=== PATIENT | female | born 1950 | race Caucasian/White ===

== ENCOUNTER → 2020-04-05 18:07 | Outpatient (CLI) | payer MEDICARE, OTHER, SELFPAY ==
[2020-04-05 18:08] LABS: Bacteria 0 SEEN /hpf (None Seen); Mucous, Urine 0 SEEN /hpf (<or=2+); Red Blood Cells-Urine 0 SEEN /hpf (0-5); Squamous Epithelial Cells - UA 0 SEEN /hpf (5-10)
[2020-04-05 18:22] LABS: Color, Urine Yellow (Yellow); Glucose, Dipstick Normal (Normal); Ketone-Dipstick 5 mg/dl (Negative); Leukocyte Esterase-Dipstick 25 /ul (Negative); Nitrite-Dipstick Negative (Negative); Occult Blood-Urine 10 /ul (Negative); Protein-Dipstick Negative (Negative); Specific Gravity, Urine 1.025 (1.002-1.030); Urine Bilirubin Dipstick Negative (Negative); Urine Clarity Cloudy (Clear); Urine Urobilinogen Normal (Normal)
[2020-04-05 18:31] LABS: Amorphous Sediment 3+; Calcium Oxalate Crystals Ur RARE /hpf (<or=2+); White Blood Cells 0-5 SEEN /hpf (0-5)
== END ==
PROVIDERS: Referring Provider Nurse Practitioner Adult Health; Visit Provider Nurse Practitioner Adult Health
DX: R31.29 Other microscopic hematuria (principal)
CPT/HCPCS: 81001

== ENCOUNTER 2021-07-11 14:24 | Outpatient (CLI) | payer MEDICARE, OTHER, SELFPAY ==
--- NOTE | 2021-07-11 15:06 | RAD_ITS ---
History: CALCULUS OF KIDNEY Abdomen: Findings: AP supine view of the abdomen demonstrates normal bowel gas pattern. No pathologic calcification or organomegaly. Bilateral phleboliths are noted within the pelvis precluding evaluation for small distal ureteral stone Psoas muscle margins are well delineated. No acute osseous abnormality. Bilateral hip prostheses in place. L4 and L5 laminectomy. IMPRESSION: No acute abnormality. No evidence of renal stone. As above. at [id number] Reported and signed by: Brodie Tinoco MD Electronically Signed: Brodie Tinoco MD at 16:56 EST , RAD/Abdomen Single View
== END 2021-07-11 23:59 | disposition home or self-care (01) ==
PROVIDERS: PCP Student in an Organized Health Care Education/Training Program; Visit Provider Urology
DX: N20.0 Calculus of kidney (principal)
CPT/HCPCS: 74018

== ENCOUNTER → 2021-12-13 | Outpatient (CLI) | payer MEDICARE, OTHER, SELFPAY ==
--- NOTE | 2021-12-13 15:06 | CT_ITS ---
STUDY: CT PELVIS WITHOUT CONTRAST REASON FOR EXAM: Female, 71 years old. HIP PAIN FRACTURE URETERAL STONE L TECHNIQUE: Transaxial imaging of the pelvis was performed without oral contrast, and without intravenous administration of contrast material. Individualized dose optimization techniques were used for this CT. COMPARISON: None. FINDINGS: Normal urinary bladder. 4.5 mm distal left ureteral stone. Normal visualized small intestine. Normal visualized colon. There is no pelvic fluid. There is no pelvic mass lesion or lymphadenopathy. There is absence of the uterus consistent with a prior hysterectomy. Normal visualized pelvic arteries. There is bilateral neural foraminal stenosis at L4-5 and L5-S1. There is a right inguinal hernia containing fat. There are diffuse degenerative changes of the visualized lumbar spine. Total bilateral hip arthroplasty. 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 There is a Grade 1 anterolisthesis of L5 on S1. CT/Pelvis without IV Contrast IMPRESSION: 4.5 mm distal left ureteral stone. There is bilateral neural foraminal stenosis at L4-5 and L5-S1. Electronically Signed: Chato Jain MD at 20:22 EDT ,
== END | disposition home or self-care (01) ==
LOC: CT 14:56
PROVIDERS: PCP Student in an Organized Health Care Education/Training Program; Visit Provider Urology
DX: N20.1 Calculus of ureter (principal)
CPT/HCPCS: 72192

== ENCOUNTER 2021-12-29 06:03 | Day surgery (SDC) | payer MEDICARE, OTHER, SELFPAY ==
[2021-12-29] VITALS (7 sets, daily range): BP systolic 121–141; BP diastolic 72–93; PULSE 90–109; RESP 16–20; TEMP 36.4–37.2; O2SAT 92–96; BMI 37.5
[2021-12-29 06:36] LABS: INR Fingerstick 2.2; Prothrombin Time Fingerstick 25.8 SEC (11.7-14.9)
[2021-12-29] MEDS: Lactated Ringers 1,000 ML 15 ML IV (06:51)
[2021-12-29 07:24] LABS: International Normalized Ratio 2.3; Prothrombin Time (Protime)PT. 24.9 SECONDS (11.7-14.9)
[2021-12-29] MEDS: Cefazolin 2 GM in 0.9% Normal Saline 100 ML IV (07:35)
--- NOTE | 2021-12-29 07:35 | DCINST_ITS ---
Discharge Instructions Diet Discharge Diet: No restrictions Activity Discharge Activity: Return to Normal Activity May resume sexual activity in: No Restrictions Dressing / Incision Call your doctor if you observe: Fever of 101 or Higher, Inability to urinate and Inability to have a bowel movement Follow Up Care Please Follow Up With: Tracy Camacho MD When: Call office for cystoscopy and stent removal appointment Test Results: Test results from this visit will be discussed in further detail at your follow- up appointment, if applicable. Discharge Plan Admission Attending Provider: Tracy Camacho Primary Care Provider: Adrian Rico Discharge Orders/Prescriptions Prescriptions: New ondansetron HCl [ondansetron HCl] 8 mg tablet 8 mg PO Q8H PRN PRN (Reason: Nausea) 7 Days Qty: 20 0RF oxycodone-acetaminophen [Percocet] 5-325 mg tablet 1 tab PO Q8H PRN (Reason: pain) 3 Days Qty: 14 0RF cephalexin [cephalexin] 500 mg capsule 500 mg PO Q12 3 Days Qty: 6 0RF phenazopyridine [Pyridium] 200 mg tablet 200 mg PO TID PRN PRN (Reason: Bladder Spasms) 7 Days Qty: 30 0RF Continued diltiazem HCl 180 mg capsule,extended release 24hr 180 mg PO DAILY Label Comments: TAKE 1 CAPSULE BY MOUTH EVERY DAY meloxicam 15 mg tablet 15 mg PO DAILY levothyroxine 50 mcg tablet 50 mcg PO DAILY Label Comments: TAKE 1 TABLET BY MOUTH EVERY DAY, EXCEPT TAKE 2 TABLETS BY MOUTH ON FRIDAYS Rx Instructions: 100mcg on Fridays warfarin 2 mg tablet 6 mg PO DAILY Label Comments: TAKE 3 TABS DAILY OR DIRECTED PER COUMADIN CLINIC Rx Instructions: 8mg on Mondays only calcium citrate 500 mg Tablet, Effervescent 500 mg PO BID furosemide 20 mg tablet 20 mg PO DAILY escitalopram oxalate 10 mg tablet 10 mg PO DAILY Label Comments: TAKE 1 TABLET BY MOUTH EVERY DAY rosuvastatin 10 mg tablet 10 mg PO DAILY cholecalciferol (vitamin D3) 50 mcg (2,000 unit) tablet 50 mcg PO DAILY Label Comments: TAKE 1 TABLET BY MOUTH EVERY DAY fluticasone furoate-vilanterol [Breo Ellipta] 200-25 mcg/dose Blister With Device 1 inh INHALATION DAILY Referrals / Follow Up: Adrian Rico DO [Primary Care Provider] - Disposition Disposition (needs filled in before D/C Order can be placed): Home, Self Care
--- NOTE | 2021-12-29 07:38 | OP.PCM_ITS ---
Report of Operation Date of Procedure: 12/29/21 Pre-Operative Diagnosis: Left ureteral calculus Post-Operative Diagnosis: Same, passed Surgery/Procedure Performed:: Cystoscopy, left ureteroscopy, left retrograde pyelogram Surgeon: Tracy Camacho Type of Anesthesia: General Description of Procedure: The patient is a 71-year-old female who had a left ureteral calculus which remained on repeat CT scan after a month of trial of passage. She now presents for further evaluation and management under anesthesia. Informed consent was obtained. The patient was taken to the operating room and placed on the operating room table. Anesthesia monitored the head, neck, airway, IV access and vital signs throughout the case. Once anesthesia was probably administered the patient was placed into dorsal lithotomy position was prepped and draped in usual sterile fashion. The cystoscope was inserted through the urethra under direct visualization into the urinary bladder. The bladder mucosa was vi sualized in its entirety and found to be without evidence of mass, erythema or abnormality. At this time the left ureteral orifice was intubated with 8.035 Glidewire. The semirigid ureteroscope was gently used with the help of a 0.025 Glidewire to gain access to the ureter all the way to the UPJ. There was no evidence of stone, foreign body, mass, erythema, edema of the ureter. A retrograde pyelogram was performed through the ureteroscope revealing no evidence of filling defects with sharp nondilated calyces. At this time the ureteroscope was used to directly visualize the entire ureter on the way out. The ureteroscope was then removed. The patient was awakened and taken to the recovery room in good condition. There were no complications during this procedure. Complications None Admit VTE Documentation VTE Present on Admission: Yes VTE Mechan Device Prophylaxis: SCD's VTE Pharm Prophylaxis ordered?: Yes
== END 2021-12-29 10:03 | disposition home or self-care (01) ==
LOC: SDC 06:08 → AC 06:09
PROVIDERS: PCP Student in an Organized Health Care Education/Training Program; Referring Provider Urology; Visit Provider Urology
PROC: 0TJ98ZZ Inspection of Ureter, Via Natural or Artificial Opening Endoscopic (ICD-10-PCS; CPT 52352; principal; 2021-12-29 07:20)
DX: N13.2 Hydronephrosis with renal and ureteral calculous obstruction (principal); I27.20 Pulmonary hypertension, unspecified; I48.91 Unspecified atrial fibrillation; E89.2 Postprocedural hypoparathyroidism; N39.41 Urge incontinence; I10 Essential (primary) hypertension; E78.00 Pure hypercholesterolemia, unspecified; Z79.01 Long term (current) use of anticoagulants; Z79.899 Other long term (current) drug therapy; Z87.442 Personal history of urinary calculi
CPT/HCPCS: 52005; 00910; 36416; 76000; 85610; J7120; J2405

== ENCOUNTER → 2022-02-23 | Outpatient (CLI) | payer MEDICARE, OTHER, SELFPAY ==
--- NOTE | 2022-02-23 16:30 | RAD_ITS ---
INDICATION: BACK PAIN EXAMINATION/TECHNIQUE: X-RAY - XR Spine Lumbar Min 4 Views COMPARISON: None. FINDINGS: VERTEBRAE: 1. Vertebral body height is maintained. 2. There are postoperative changes of laminectomy defects from approximately L4-S1. No acute fractures noted. Marginal osteophyte formation is present at multiple levels. There is a grade 1 anterolisthesis of L5 on S1. Mild degenerative retrolisthesis of L3 on L4. Normal appearance of visualized sacrum and sacroiliac joints. 3. Incidental note of chronic appearing compression deformity at T12. DISCS: Disc spaces are maintained, marginal osteophytes present at multiple levels however. There is retrolisthesis of L3 on L4, disc space narrowing is present at L2-3. Mild anterolisthesis of L5 on S1. INCLUDED ABDOMEN: Included bowel gas pattern is non-obstructive. RAD/L/S Spine Min 4 Views IMPRESSION: 1. Diffuse lumbar spondylosis, postoperative changes of a prior laminectomy defects, and chronic appearing retrolisthesis of L3 on L4, anterolisthesis of L5 on S1. 2. No acute fractures or destructive bony process. 3. Chronic compression deformity at T12. Electronically Signed: Eliseo Bruner MD at 0:54 EDT ,
== END | disposition home or self-care (01) ==
LOC: RAD 16:26
PROVIDERS: PCP Student in an Organized Health Care Education/Training Program; Referring Provider Nurse Practitioner Family; Visit Provider Nurse Practitioner Family
DX: M54.9 Dorsalgia, unspecified (principal)
CPT/HCPCS: 72110

== ENCOUNTER → 2022-05-16 | Outpatient (CLI) | payer MEDICARE, OTHER, SELFPAY ==
--- NOTE | 2022-05-16 13:22 | RAD_ITS ---
STUDY: X-RAY - PELVIS AND RIGHT HIP REASON FOR EXAM: Female, 72 years old. Groin pain. TECHNIQUE: 3 views of the pelvis and hip. COMPARISON: July 11, 2021. FINDINGS: There is a non-specific bowel gas pattern. Normal visualized soft tissue structures. Stable osteopenia. Normal bilateral iliac wings, sacroiliac joints and visualized sacrum. Normal bilateral superior and inferior pubic rami. Normal pubic symphysis. Normal bilateral ischial tuberosities. Bilateral total hip arthroplasties unchanged in position or alignment. RAD/HIP, UNI W/ Pelvis 2-3 Views IMPRESSION: Stable osteopenia with uncomplicated bilateral total hip arthroplasties Electronically Signed: Luan Ward, at 15:15 EST ,
== END | disposition home or self-care (01) ==
PROVIDERS: PCP Student in an Organized Health Care Education/Training Program; Referring Provider Anesthesiology Pain Medicine; Visit Provider Anesthesiology Pain Medicine
DX: R10.30 Lower abdominal pain, unspecified (principal)
CPT/HCPCS: 73502

== ENCOUNTER → 2023-01-23 | Outpatient (CLI) | payer MEDICARE, OTHER, SELFPAY ==
--- NOTE | 2023-01-23 09:00 | RAD_ITS ---
STUDY: X-RAY - ABDOMEN/PELVIS REASON FOR EXAM: Female, 72 years old. RENAL CALCULUS TECHNIQUE: Two AP supine views of the abdomen and pelvis. COMPARISON: None. FINDINGS: Normal visualized lung bases. There is an unremarkable bowel gas pattern. There is no demonstrated free abdominal air. The visualized liver, spleen and kidneys are grossly normal in size and morphology. Normal soft tissue structures. Normal visualized osseous structures. RAD/Abdomen Single View IMPRESSION: No evidence of acute abdominal process. No evidence of focal nephrolithiasis. Electronically Signed: Andrez Calero DO at 17:07 EDT ,
== END | disposition home or self-care (01) ==
LOC: MTRAD 08:18
PROVIDERS: PCP Student in an Organized Health Care Education/Training Program; Referring Provider Urology; Visit Provider Urology
DX: N20.0 Calculus of kidney (principal)
CPT/HCPCS: 74018

== ENCOUNTER → 2023-07-24 | Outpatient (CLI) | payer MEDICARE, OTHER, SELFPAY ==
--- NOTE | 2023-07-24 10:14 | RAD_ITS ---
STUDY: X-RAY - LUMBOSACRAL SPINE REASON FOR EXAM: Female, 73 years old. Back pain. Bilateral leg pain. TECHNIQUE: 6 view(s) of the lumbosacral spine were obtained on 7 images. COMPARISON: None FINDINGS: Osteopenia. Reversal of the normal lordosis. No substantial scoliosis. 8 mm of anterolisthesis of L3 on L4 and 11 mm of anterolisthesis of L5 on S1 which which slightly increases at L5-S1 on flexion. No change on extension.. Marked anterior wedging of the T12 vertebral body, age undetermined. Diffuse moderate lower thoracic and lumbosacral facet sclerosis most prevalent at L3-4 to L5-S1. Diffuse moderate lower thoracic and lumbosacral intervertebral disc space narrowing with osteophyte formation most marked at L1-2, L2-3 and L3-4. Vascular calcification. RAD/L/S Spine Comp/w Bending Views IMPRESSION: Osteopenia with lower thoracic and lumbosacral spondylosis, most marked from L3-4 to L5-S1. Anterior wedge compression deformity of T12, age not identified. Electronically Signed: Luan Ward MD at 13:52 EDT ,
--- OUTSIDE RECORDS SUMMARY | 2023-07-24 23:32 | XMS RPT_ITS | CCD ---
Author Name Unknown Address [address] [place] [address] Organization [facility] Care Team Providers Care Customer Care Assistant Name Role Phone SANTY OLVERAAN Y Unavailable Unavailable NeklJohnKris Unavailable Unavailable Gross-Sawicka, Mari M Unavailable Unavailable Gross-Sawicka, Mari M Unavailable Unavailable Eda, Babu M Unavailable Unavailable Argelia, Junior Y Unavailable Unavailable Tito, Jesus Unavailable Unavailable Anshu Damon Unavailable Unavailable Coby Ricoey Unavailable Unavailable Jesusar Foreign E Unavailable Unavailable Unavailable ROMAR DO, DR HINKLE Primary Care Physician [phone] Enio PT, Stella Unavailable Unavailable Nekl, Dr. Kris Smith Referring Unavailab le Nekl, Dr. Kris Smith Attending Unavailab le Nekl, Dr. Kris Smith Attending Unavailab le Romar, Foreign E Referring Unavailable Zanotti, Dr. Maximiliano Mart Attending Unav ailable Zanotti, Dr. Maximiliano Mart Attending Unav ailable Zanotti, Dr. Maximiliano Mart Attending Unav ailable LUPIS FERGUSON MD Attending Unavaila ble ROMAR DO, DR HINKLE Primary Care Unavailable ROMAR DO, DR HINKLE Attending Unavailable ROMAR DO, DR HINKLE Primary Care Unavailable ROMAR DO, DR HINKLE Attending Unavailable ROMAR DO, DR HINKLE Primary Care Unavailable ROMAR DO, DR HINKLE Attending Unavailable ROMAR DO, DR HINKLE Primary Care Unavailable ROMAR DO, DR HINKLE Attending Unavailable ROMAR DO, DR HINKLE Primary Care Unavailable ROMAR DO, DR HINKLE Attending Unavailable ROMAR DO, DR HINKLE Primary Care Unavailable ROMAR DO, DR HINKLE Attending Unavailable ROMAR DO, DR HINKLE Primary Care Unavailable MD JONEL CHRISTOPHER Attending Unavailable ROMAR DO, DR HINKLE Primary Care Unavailable ROMAR DO, DR HINKLE Attending Unavailable ROMAR DO, DR HINKLE Primary Care Unavailable SPITTLE DO, ROLANDO Attending Unavailable ROMAR DO, DR HINKLE Primary Care Unavailable ROMAR DO, DR HINKLE Attending Unavailable ROMAR DO, DR HINKLE Primary Care Unavailable ROMAR DO, DR HINKLE Attending Unavailable ROMAR DO, DR HINKLE Primary Care Unavailable TEACH ORDNANCE KEEPER-JAIL GUARD, MARCELO Attending Unavaila ble ROMAR DO, DR HINKLE Primary Care Unavailable LUPIS FERGUSON MD Attending Unavaila ble ROMAR DO, DR HINKLE Primary Care Unavailable ROMAR DO, DR HINKLE Attending Unavailable ROMAR DO, DR HINKLE Primary Care Unavailable [facility], BRITT Attending Unavailable ROMAR DO, DR HINKLE Primary Care Unavailable PROVIDER, UNKNOWN J Primary Care Unavailable ANSHU DAMON MD Referring Unavailabl e ANSHU DAMON MD Attending Unavailabl e ANSHU DAMON MD Referring Unavailabl e ANSHU DAMON MD Attending Unavailabl e PROVIDER, UNKNOWN J Primary Care Unavailable ANSHU DAMON MD Referring Unavailabl e ANSHU DAMON MD Attending Unavailabl e PROVIDER, UNKNOWN J Primary Care Unavailable PROVIDER, UNKNOWN J Primary Care Unavailable ANSHU DAMON MD Attending Unavailabl e ANSHU DAMON MD Referring Unavailabl e ANSHU DAMON MD Attending Unavailabl e PROVIDER, UNKNOWN J Primary Care Unavailable ANSHU DAMON MD Referring Unavailabl e PROVIDER, UNKNOWN J Primary Care Unavailable ANSHU DAMON MD Attending Unavailabl e ANSHU DAMON MD Attending Unavailabl e PROVIDER, UNKNOWN J Primary Care Unavailable ANSHU DAMON MD Referring Unavailabl e ANSHU DAMON MD Attending Unavailabl e PROVIDER, UNKNOWN J Primary Care Unavailable ANSHU DAMON MD Attending Unavailabl e PROVIDER, UNKNOWN J Primary Care Unavailable ANSHU DAMON MD Referring Unavailabl e PROVIDER, UNKNOWN J Primary Care Unavailable ANSHU DAMON MD Attending Unavailabl e ANSHU DAMON MD Referring Unavailabl e PROVIDER, UNKNOWN J Primary Care Unavailable ANSHU DAMON MD Attending Unavailabl e ANSHU DAMON MD Referring Unavailabl e PROVIDER, UNKNOWN J Primary Care Unavailable ANSHU DAMON MD Attending Unavailabl e ANSHU DAMON MD Attending Unavailabl e ANSHU DAMON MD Referring Unavailabl e PROVIDER, UNKNOWN J Primary Care Unavailable ANSHU DAMON MD Referring Unavailabl e PROVIDER, UNKNOWN J Primary Care Unavailable ANSHU DAMON MD Attending Unavailabl e ANSHU DAMON MD Referring Unavailabl e PROVIDER, UNKNOWN J Primary Care Unavailable ANSHU DAMON MD Attending Unavailabl e ANSHU DAMON MD Referring Unavailabl e ANSHU DAMON MD Attending Unavailabl e PROVIDER, UNKNOWN J Primary Care Unavailable PROVIDER, UNKNOWN J Primary Care Unavailable ANSHU DAMON MD Referring Unavailabl e ANSHU DAMON MD Attending Unavailabl e ANSHU DAMON MD Referring Unavailabl e ANSHU DAMON MD Attending Unavailabl e PROVIDER, UNKNOWN J Primary Care Unavailable ANSHU DAMON MD Referring Unavailabl e ANSHU DAMON MD Attending Unavailabl e PROVIDER, UNKNOWN J Primary Care Unavailable PROVIDER, UNKNOWN J Primary Care Unavailable ANSHU DAMON MD Attending Unavailabl e ANSHU DAMON MD Attending Unavailabl e ANSHU DAMON MD Referring Unavailabl e PROVIDER, UNKNOWN J Primary Care Unavailable ANSHU DAMON MD Attending Unavailabl e ANSHU DAMON MD Referring Unavailabl e PROVIDER, UNKNOWN J Primary Care Unavailable ANSHU DAMON MD Referring Unavailabl e ANSHU DAMON MD Attending Unavailabl e PROVIDER, UNKNOWN J Primary Care Unavailable ANSHU DAMON MD Referring Unavailabl e ANSHU DAMON MD Attending Unavailabl e PROVIDER, UNKNOWN J Primary Care Unavailable ANSHU DAMON MD Referring Unavailabl e TAGHIZADEH MD, TOURAJ Attending Unavailabl e PROVIDER, UNKNOWN J Primary Care Unavailable PROVIDER, UNKNOWN J Primary Care Unavailable ANSHU DAMON MD Referring Unavailabl e ANSHU DAMON MD Attending Unavailabl e PROVIDER, UNKNOWN J Primary Care Unavailable ANSHU DAMON MD Attending Unavailabl e PROVIDER, UNKNOWN J Primary Care Unavailable ANSHU DAMON MD Referring Unavailabl e ANSHU DAMON MD Attending Unavailabl e AMY SHANKAR, ANSHU Referring Unavailabl e AMY SHANKAR, ANSHU Attending Unavailabl e PROVIDER, UNKNOWN J Primary Care Unavailable ANSHU DAMON MD Referring Unavailabl e ANSHU DAMON MD Attending Unavailabl e PROVIDER, UNKNOWN J Primary Care Unavailable ANSHU DAMON MD Referring Unavailabl e ANSHU DAMON MD Attending Unavailabl e PROVIDER, UNKNOWN J Primary Care Unavailable ANSHU DAMON MD Admitting Unavailabl e PROVIDER, UNKNOWN J Primary Care Unavailable ANSHU DAMON MD Attending Unavailabl e ANSHU DAMON MD Referring Unavailabl e ANSHU DAMON MD Attending Unavailabl e PROVIDER, UNKNOWN J Primary Care Unavailable Allergies Allergy Classification Reported Allergen(s) Allergy Type Date of Onset Reaction(s) Facility Macrolides (antibiotic) (3 sources) Erythromycin; Translations: [erythromycin] Drug Allergy [facility] Work Phone: Penicillins (antibiotic) (3 sources) Penicillins; Translations: [Penicillins] Drug Allergy [facility] Work Phone: (20 sources) Erythromycin; Translations: [Erythromycin] Drug Allergy Nausea [facility] Work Phone: (14 sources) Penicillins; Translations: [Penicillins] Allergy to drug (finding) [facility] Work Phone: (20 sources) Penicillin; Translations: [penicillin] Drug Allergy [facility] Medications Current Medications Medication Drug Class(es) Dates Sig (Normalized) Sig (Original) acetaminophen 500 mg oral tablet (20 sources) Start: 02-16-2022 Tylenol Extra Strength 500 mg oral tablet Dose : 500 mg = 1 tab(s), Oral, q4h, PRN as needed for fever, # 60 tab(s), 0 Refill(s) Start Date: 02/16/22 Status: Ordered Completed/Discontinued Medications Medication Drug Class(es) Dates Sig (Normalized) Sig (Original) acetaminophen 325 mg / HYDROcodone bitartrate 5 mg oral tablet (3 sources) Opioid Agonist Start: 12-02-2021 HYDROcodone-Acetam inophen 5-325 MG Oral Tablet Quantity: 15 Refills: 0 Ordered: 02-Dec-2021 DO Start : 02-Dec-2021 Complete Problems Active Problems Problem Classification Problem Date Documented Da te Episodic/Chronic Abdominal hernia (20 sources) Umbilical hernia; Translations: [Umbilical hernia without mention of obstruction or gangrene] 06-11-2019 Episodic Abdominal pain (17 sources) Epigastric discomfort; Translations: [Abdominal pain, epigastric] Episodic Acute bronchitis (1 source) Acute bronchitis; Translations: [Acute bronchitis] Episodic Administrative/social admission (20 sources) Family tension 07-18-2020 Episodic Allergic reactions (20 sources) Contact dermatitis due to poison elba; Translations: [Allergic reaction] Episodic Anxiety disorders (20 sources) Anxiety; Translations: [Anxiety state, unspecified] 09-16-2019 Chronic Calculus of urinary tract (20 sources) Kidney stone; Translations: [Calculus of kidney] Onset: 07-08-2021 Episodic Cardiac dysrhythmias (20 sources) Atrial fibrillation; Translations: [Atrial fibrillation] 06-05-2019 Chronic Cardiac dysrhythmias (20 sources) Palpitations; Translations: [Palpitations] 02-16-2022 Episodic Chronic kidney disease (20 sources) Chronic kidney disease stage 3A 11-26-2020 Chronic Chronic obstructive pulmonary disease and bronchiectasis (20 sources) Chronic obstructive lung disease; Translations: [Moderate chronic obstructive pulmonary disease] 07-18-2020 Chronic Conditions associated with dizziness or vertigo (20 sources) Dizziness; Translations: [Dizziness and giddiness] Onset: 07-08-2021 Episodic Conduction disorders (10 sources) Prolonged QT interval 12-08-2022 Chronic Congestive heart failure; nonhypertensive (20 sources) Heart failure with normal ejection fraction 08-24-2020 Chronic Diabetes mellitus with complications (20 sources) Dyslipidemia due to type 2 diabetes mellitus; Translations: [Type 2 diabetes mellitus in obese] Onset: 08-31-2022 12-16-2019 Chronic Past or Other Problems Problem Classification Problem Date Documented Date Episodic/Chronic Osteoarthritis (2 sources) Osteoarthritis of right hip joint; Translations: [Osteoarthritis of right hip] Other connective tissue disease (17 sources) History of osteopenia; Translations: [Personal history of other musculoskeletal disorders] Resolved: 10-28-2013 Episodic Other connective tissue disease (1 source) Other shoulder lesions, unspecified shoulder; Translations: [Rotator cuff tendinitis] Episodic Other upper respiratory infections (3 sources) Sinusitis; Translations: [Acute sinusitis] Episodic Unclassified (10 sources) Patient encounter status; Translations: [Visit for screening mammogram] Unclassified (17 sources) Screening for malignant neoplasms, colon Unclassified (2 sources) History of Foot pain, unspecified laterality; Translations: [History of Foot pain, unspecified laterality] Unclassified (2 sources) History of clinical finding in subject; Translations: [History of fatigue] Unclassified (1 source) Contusion of head; Translations: [Contusion of head] Unclassified (15 sources) Foot pain, unspecified laterality; Translations: [Foot pain, unspecified laterality] NEGATED: Highlighted row has not occurred!Residual codes; unclassified (20 sources) Disease Episodic Results Test Name Value Interpretation Reference Range Facil ity Vital Signs Date Time Vital Sign Value Performing Clinician Faci lity 07-07-2022 15:20-0500 Body height 160.02 cm Foreign Rico Work Phone: [employer] [facility] Work Phone: 07-07-2022 15:20-0500 Body mass index (BMI) [Ratio] 36.85 kg/m2 Foreign Rico Work Phone: [employer] [facility] Work Phone: 07-07-2022 15:20-0500 Body surface area Derived from formula 1.97 m2 Foreign Rico Work Phone: [facility] Work Phone: 07-07-2022 15:20-0500 Body temperature 96.9 [degF] Foreign Rico Work Phone: [facility] Work Phone: 07-07-2022 15:20-0500 Body weight 94.35 kg Foreignganesh Rico Work Phone: [facility] Work Phone: 07-07-2022 15:20-0500 Diastolic blood pressure 80 mm[Hg] Foreignganesh Rico Work Phone: [facility] Work Phone: 07-07-2022 15:20-0500 Heart rate 97 /min Foreignganesh Rico Work Phone: [facility] Work Phone: 07-07-2022 15:20-0500 SaO2% (BldA) [Mass fraction] 94 % Foreign Rico Work Phone: [facility] Work Phone: 07-07-2022 15:20-0500 Systolic blood pressure 119 mm[Hg] Foreignganesh Leeakanksha Work Phone: [facility] Work Phone: 06-12-2022 13:38-0500 Body height 160.02 cm Foreign Cat Jesusakanksha Work Phone: [facility] Work Phone: 06-12-2022 13:38-0500 Body mass index (BMI) [Ratio] 36.85 kg/m2 Foreign Rico Work Phone: [facility] [place] Work Phone: 06-12-2022 13:38-0500 Body surface area Derived from formula 1.97 m2 Foreign Rico Work Phone: [facility] Work Phone: 06-12-2022 13:38-0500 Body weight 94.35 kg Foreign Rico Work Phone: [facility] Work Phone: 01-06-2022 10:34-0400 Body height 160.02 cm Foreign Rico Work Phone: [employer] [facility] Work Phone: 01-06-2022 10:34-0400 Body mass index (BMI) [Ratio] 37.55 kg/m2 Foreign Rico Work Phone: [employer] [facility] Work Phone: 01-06-2022 10:34-0400 Body surface area Derived from formula 1.98 m2 Foreign Rico Work Phone: [employer] [facility] Work Phone: 01-06-2022 10:34-0400 Body temperature 96 [degF] Foreign Rico Work Phone: [employer] [facility] Work Phone: 01-06-2022 10:34-0400 Body weight 96.16 kg Foreign Rico Work Phone: [employer] [facility] Work Phone: 01-06-2022 10:34-0400 Diastolic blood pressure 60 mm[Hg] Foreign Rico Work Phone: [employer] [facility] Work Phone: 01-06-2022 10:34-0400 Heart rate 85 /min Foreignganesh Rico Work Phone: [employer] [facility] Work Phone: 01-06-2022 10:34-0400 SaO2% (BldA) [Mass fraction] 96 % Foreign Rico Work Phone: [employer] [facility] Work Phone: 01-06-2022 10:34-0400 Systolic blood pressure 116 mm[Hg] Foreign Shelton Trisha Work Phone: [employer] [facility] Work Phone: 12-02-2021 10:50-0400 Diastolic blood pressure 78 mm[Hg] MOHINDER METZ MD [facility] 12-02-2021 10:50-0400 Heart rate 77 /min MOHINDER METZ MD [facility] 12-02-2021 10:50-0400 Respiratory rate 20 /min MOHINDER METZ MD [facility] 12-02-2021 10:50-0400 Systolic blood pressure 131 mm[Hg] MOHINDER METZ MD [facility] 12-02-2021 09:00-0400 Body temperature 97.88 [degF] MOHINDER METZ MD [facility] 12-02-2021 09:00-0400 Diastolic blood pressure 89 mm[Hg] MOHINDER METZ MD [facility] 12-02-2021 09:00-0400 Heart rate 75 /min MOHINDER METZ MD [facility] 12-02-2021 09:00-0400 Systolic blood pressure 156 mm[Hg] MOHINDER METZ MD [facility] 07-31-2021 20:12-0400 Diastolic blood pressure 82 mm[Hg] DR PAVAN KHOURY MD [facility] 07-31-2021 20:12-0400 Heart rate 81 /min DR PAVAN KHOURY MD [facility] 07-31-2021 20:12-0400 Reason For Taking VItal Signs DR PAVAN KHOURY MD [facility] 07-31-2021 20:12-0400 Respiratory rate 18 /min DR PAVAN KHOURY MD [facility] 07-31-2021 20:12-0400 Systolic blood pressure 133 mm[Hg] DR PAVAN KHOURY MD [facility] 07-31-2021 17:53-0400 Diastolic blood pressure 77 mm[Hg] DR PAVAN KHOURY MD [facility] 07-31-2021 17:53-0400 Heart rate 84 /min DR PAVAN KHOURY MD [facility] 07-31-2021 17:53-0400 Reason For Taking VItal Signs DR PAVAN KHOURY MD [facility] 07-31-2021 17:53-0400 Respiratory rate 16 /min DR PAVAN KHOURY MD [facility] 07-31-2021 17:53-0400 Systolic blood pressure 127 mm[Hg] DR PAVAN KHOURY MD [facility] 07-31-2021 16:23-0400 Body temperature 98.06 [degF] DR PAVAN KHOURY MD [facility] 07-31-2021 16:23-0400 Diastolic blood pressure 85 mm[Hg] DR PAVAN KHOURY MD [facility] 07-31-2021 16:23-0400 Heart rate 86 /min DR PAVAN KHOURY MD [facility] 07-31-2021 16:23-0400 Respiratory rate 18 /min DR PAVAN KHOURY MD [facility] 07-31-2021 16:23-0400 Systolic blood pressure 134 mm[Hg] DR PAVAN KHOURY MD [facility] 07-08-2021 15:01-0500 Diastolic blood pressure 72 mm[Hg] DR CHUNG LUJAN MD [facility] 07-08-2021 15:01-0500 Heart rate 70 /min DR CHUNG LUJAN MD [facility] 07-08-2021 15:01-0500 Respiratory rate 18 /min DR CHUNG LUJAN MD [facility] 07-08-2021 15:01-0500 Systolic blood pressure 122 mm[Hg] DR CHUNG LUJAN MD [facility] 07-08-2021 11:49-0500 Diastolic blood pressure 85 mm[Hg] DR CHUNG LUJAN MD [facility] 07-08-2021 11:49-0500 Heart rate 78 /min DR CHUNG LUJAN MD [facility] 07-08-2021 11:49-0500 Respiratory rate 16 /min DR CHUNG LUJAN MD [facility] 07-08-2021 11:49-0500 Systolic blood pressure 137 mm[Hg] DR CHUNG LUJAN MD [facility] 07-08-2021 10:24-0500 Body height [address] CHUNG LUJAN MD [facility] 07-08-2021 10:24-0500 Body temperature 98.6 [degF] DR CHUNG LUJAN MD [facility] 07-08-2021 10:24-0500 Body weight [address] CHUNG LUJAN MD [facility] 07-08-2021 10:24-0500 Diastolic blood pressure 81 mm[Hg] DR CHUNG LUJAN MD [facility] 07-08-2021 10:24-0500 Heart rate 109 /min DR CHUNG LUJAN MD [facility] 07-08-2021 10:24-0500 Respiratory rate 18 /min DR CHUNG LUJAN MD [facility] 07-08-2021 10:24-0500 Systolic blood pressure 161 mm[Hg] DR CHUNG LUJAN MD [facility] 04-25-2021 13:46-0500 Body height 160.[address] FOREIGN RICO DO [facility] 04-25-2021 13:46-0500 Body weight 38.35 kg/m2 DR FOREIGN RICO DO [facility] 04-25-2021 13:46-0500 Body weight 98.[address] FOREIGN RICO DO [facility] 11-12-2020 15:30-0400 Body height 160.02 cm Foreign Rico Work Phone: [employer] [facility] Work Phone: 11-12-2020 15:30-0400 Body mass index (BMI) [Ratio] 38.68 kg/m2 Foreign Rico Work Phone: [employer] [facility] Work Phone: 11-12-2020 15:30-0400 Body surface area Derived from formula 2.01 m2 Foreign Rico Work Phone: [employer] [facility] Work Phone: 11-12-2020 15:30-0400 Body temperature 97.7 [degF] Foreign Rico Work Phone: [employer] [facility] Work Phone: 11-12-2020 15:30-0400 Body weight 99.06 kg Foreign Rico Work Phone: [facility] Work Phone: 11-12-2020 15:30-0400 Diastolic blood pressure 70 mm[Hg] Foreign Rico Work Phone: [facility] [employer] [facility] Work Phone: 11-12-2020 15:30-0400 Heart rate 104 /min Foreign Rico Work Phone: [facility] Work Phone: 11-12-2020 15:30-0400 SaO2% (BldA) [Mass fraction] 95 % Foreign Rico Work Phone: [employer] [facility] Work Phone: 11-12-2020 15:30-0400 Systolic blood pressure 120 mm[Hg] Foreign Rico Work Phone: [facility] Work Phone: 11-07-2019 11:56-0400 BMI (Body Mass Index) 37.97 kg/m2 Kris Yung [employer] [facility] Work Phone: 11-07-2019 11:56-0400 Body Temperature 97.5 [degF] Kris Yung [employer] [facility] Work Phone: Encounters Encounter Date Encounter Type Care Provider Facility Start: 07-17-2023 ambulatory UNKNOWN J PROVIDER Faci lity:[id number] Start: 07-17-2023 ambulatory UNKNOWN J PROVIDER Faci lity:[id number] Start: 07-17-2023 End: 07-17-2023 ambulatory ANSHU DAMON MD Facility:[id number] Start: 07-16-2023 End: 07-17-2023 ambulatory ANSHU DAMON MD Facility:[id number] Start: 07-09-2023 End: 07-10-2023 ambulatory UNKNOWN J PROVIDER Facility:[id number] Start: 07-09-2023 End: 07-10-2023 ambulatory ANSHU DAMON MD Facility:[id number] Start: 07-04-2023 End: 07-05-2023 ambulatory ANSHU DAMON MD Facility:[id number] Start: 07-02-2023 End: 07-03-2023 ambulatory LUPIS FERGUSON MD Facility:B Start: 07-02-2023 End: 07-02-2023 Patient encounter procedure LUPIS FERGUSON MD [facility] Start: 06-18-2023 End: 06-19-2023 ambulatory ANSHU DAMON MD Facility:[id number] Start: 05-31-2023 End: 06-01-2023 ambulatory ANSHU DAMON MD Facility:[id number] Start: 05-22-[address] FOREIGN RICO DO Facili ty:B Start: 05-22-2023 End: 05-23-2023 ambulatory BRITT JAMES JAIL GUARD Facility:B Start: 05-22-2023 End: 05-23-2023 Encounter for preprocedural laboratory examination BRITT JAMES JAIL GUARD Facility:B Start: 05-22-2023 End: 05-22-2023 Patient encounter procedure BRITT JAMES JAIL GUARD [facility] Start: 05-18-2023 End: 05-19-[address] FOREIGN RICO DO Facility:B Start: 05-18-2023 End: 05-18-[address] FOREIGN RICO DO [facility] Start: 05-17-2023 End: 05-18-2023 ambulatory ANSHU DAMON MD Facility:[id number] Start: 05-17-2023 End: 05-17-2023 ambulatory ANSHU DAMON MD Facility:[id number] Start: 04-30-2023 End: 05-01-2023 ambulatory ANSHU DAMON MD Facility:[id number] Start: 04-13-2023 End: 04-14-2023 ambulatory ANSHU DAMON MD Facility:[id number] Start: 04-02-2023 End: 04-03-2023 ambulatory ANSHU DAMON MD Facility:[id number] Start: 03-30-2023 End: 03-31-[address] FOREIGN RICO DO Facility:B Start: 03-30-2023 End: 03-30-[address] FOREIGN RICO DO [facility] Start: 03-26-2023 End: 03-27-2023 ambulatory ANSHU DAMON MD Facility:[id number] Start: 03-26-2023 End: 03-27-2023 ambulatory ANSHU DAMON MD Facility:[id number] Start: 03-15-2023 End: 03-16-2023 ambulatory ANSHU DAMON MD Facility:[id number] Start: 03-14-2023 End: 03-15-2023 ambulatory LUPIS FERGUSON MD Facility:B Start: 03-14-2023 End: 03-14-2023 Patient encounter procedure LUPIS FERGUSON MD [facility] Start: 03-07-2023 End: 03-08-2023 ambulatory ANSHU DAMON MD Facility:[id number] Start: 03-02-2023 End: 05-29-[address] FOREIGN RICO DO Facility:B Start: 02-27-2023 End: 02-28-2023 ambulatory MARCELO JOHNSON [employer]NCE KEEPER[employer]JAIL GUARD Facility:B Start: 02-27-2023 End: 02-27-2023 Patient encounter procedure MARCELO JOHNSON [employer]DNANCE KEEPER[employer]JAIL GUARD [facility] Start: 02-22-2023 End: 02-23-2023 ambulatory ANSHU DAMON MD Facility:[id number] Start: 02-07-2023 End: 02-08-2023 ambulatory ANSHU DAMON MD Facility:[id number] Start: 01-31-2023 End: 01-01-2024 ambulatory ROLANDO BURNETTE DO Facility:B Start: 01-25-2023 End: 01-26-[address] FOREIGN RICO DO Facility:B Start: 01-25-2023 End: 01-25-[address] FOREIGN RICO DO [facility] Start: 01-24-2023 End: 01-25-2023 ambulatory ANSHU DAMON MD Facility:[id number] Start: 01-01-2023 End: 01-02-[address] FOREIGN RICO DO Facility:B Start: 01-01-2023 End: 01-01-[address] FOREIGN RICO DO [facility] Start: 12-28-2022 End: 12-29-[address] FOREIGN RICO DO Facility:B Start: 12-28-2022 End: 12-28-[address] FOREIGN RICO DO [facility] Start: 12-11-2022 End: 12-12-2022 ambulatory ANSHU DAMON MD Facility:[id number] Start: 12-08-2022 End: 12-13-[address] FOREIGN RICO DO Facility:B Start: 12-08-2022 End: 12-12-[address] FOREIGN RICO DO [facility] Start: 11-23-2022 End: 11-24-2022 ambulatory ANSHU DAMON MD Facility:[id number] Start: 11-20-2022 End: 11-21-2022 ambulatory EVIE ALANIZ Facility:[id number] Start: 11-06-2022 End: 11-07-2022 ambulatory ANSHU DAMON MD Facility:[id number] Start: 10-17-2022 End: 10-18-2022 ambulatory ANSHU DAMON MD Facility:[id number] Start: 10-02-2022 End: 10-03-2022 ambulatory ANSHU DAMON MD Facility:[id number] Start: 09-18-2022 End: 09-19-2022 ambulatory ANSHU DAMON MD Facility:[id number] Start: 09-11-2022 End: 09-12-2022 ambulatory UNKNOWN J PROVIDER Facility:[id number] Start: 08-31-2022 End: 09-05-[address] FOREIGN RICO DO Facility:B Start: 08-31-2022 End: 09-04-[address] FOREIGN RICO DO [facility] Start: 08-22-2022 End: 08-23-2022 ambulatory MD JONEL CHRISTOPHER Facility:B Start: 08-22-2022 End: 08-22-2022 Patient encounter procedure JONEL CHRISTOPHER [facility] Start: 08-07-2022 End: 08-08-2022 ambulatory UNKNOWN J PROVIDER Facility:[id number] Start: 07-25-2022 End: 07-26-2022 ambulatory UNKNOWN J PROVIDER Facility:[id number] Start: 07-24-2022 End: 07-27-[address] FOREIGN RICO DO Facility:B Start: 07-24-2022 End: 07-27-[address] FOREIGN RICO DO [facility] Start: 07-14-2022 AUDIT Foreign Rico Work Phone: [employer] [facility] Work Phone: Start: 07-10-[address] Maximiliano Monge Facility:[id number] Start: 07-10-2022 [facility], Provider: Maximiliano Monge, Status: Pen, Time: 1:00 PM Foreign Rico Work Phone: [employer] [facility] Work Phone: Start: 07-10-2022 Patient encounter procedure [place] Work Phone: [facility] [place]: Start: 07-07-2022 Office outpatient vi sit 25 minutes Foreign Rico Work Phone: -[facility] Work Phone: Start: 07-07-2022 Patient encounter procedure Foreign Rico Work Phone: -[facility] Work Phone: Start: 07-07-[address] Kris Rahman acility:[id number] Start: 06-29-[address] Maximiliano Monge Facility:[id number] Start: 06-12-2022 Office outpatient ne w 30 minutes Foreign [place] Work Phone[place] [facility] [place] Phone: Start: 06-12-2022 Patient encounter procedure Foreign [place] Work Phone: [facility] [place] Phone: Start: 06-12-[address] Maximiliano Monge Facility:[id number] Start: 06-08-2022 End: 06-08-[address] FOREIGN RICO DO [facility] Start: 06-07-2022 Rx Renewal Foreign Rico Work Phone: [facility] Work Phone: Start: 06-01-2022 End: 06-01-[address] FOREIGN RICO DO [facility] Start: 04-12-2022 End: 04-16-2022 Outreach Lab PROSPER BRANDT ORDNANCE KEEPER-JAIL GUARD [facility] Start: 03-23-2022 End: 03-23-2022 Patient encounter procedure STELLA MATHEW JAIL GUARD [facility] Start: 03-23-2022 End: 03-23-2022 Preprocedural examination done STELLA MATHEW CNP [facility] Start: 01-06-2022 Office outpatient vi sit 15 minutes Foreign [place] Work Phone: [facility] [facility] Work Phone: Start: 01-06-2022 Patient encounter procedure Foreign Rico Work Phone: [facility] [facility] Work Phone: Start: 01-06-[address] Kris Rahman acility:[id number] Start: 12-19-2021 End: 03-15-[address] RIRI DICKSON DO [facility] Start: 12-12-2021 End: 12-12-[address] FOREIGN RIOC DO [facility] Start: 12-02-2021 End: 12-02-2021 Emergency department patient visit MOHINDER METZ MD [facility] Start: 12-01-2021 End: 12-01-[address] FOREIGN RICO DO [facility] Start: 11-25-2021 End: 11-25-[address] FOREIGN RICO DO [facility] Start: 11-11-2021 End: 12-13-[address] FOREIGN RICO DO [facility] Start: 11-04-2021 End: 11-04-[address] FOREIGN RICO DO [facility] Start: 11-01-2021 End: 11-01-[address] FOREIGN RICO DO [facility] Start: 10-22-2021 Rx Cheri Rico Work Phone: [facility] Work Phone: Start: 09-26-2021 End: 09-26-[address] FOREIGN RICO DO [facility] Start: 08-22-2021 End: 08-22-[address] FOREIGN RICO DO [facility] Start: 07-31-2021 End: 07-31-2021 Emergency department patient visit DR PAVAN KHOURY MD [facility] Start: 07-19-2021 End: 07-19-[address] FOREIGN RICO DO [facility] Start: 07-08-2021 End: 07-08-2021 Emergency department patient visit DR CHUNG LUJAN MD [facility] Start: 06-06-2021 End: 06-06-[address] FOREIGN RICO DO [facility] Start: 05-16-2021 End: 05-16-[address] FOREIGN RICO DO [facility] Start: 04-28-2021 End: 04-28-[address] FOREIGN RICO DO [facility] Start: 04-25-2021 End: 04-25-[address] FOREIGN RICO DO [facility] Start: 03-03-2021 End: 03-03-[address] FOREIGN RICO DO [facility] Start: 11-12-2020 Office outpatient vi sit 15 minutes Foreign Rico Work Phone: [employer] Work Phone: Start: 11-12-2020 Patient encounter procedure Foreign Rico Work Phone: [facility] Work Phone: Start: 11-03-2020 Rx Renewal Foreign Rico Work Phone: [facility] Work Phone: Start: 11-07-2019 Patient encounter procedure Kris Yung [facility] Work Phone: Start: 05-16-2019 Patient encounter procedure Kris Yung [facility] Work Phone: Start: 02-13-2019 [facility] Work Phone: Start: 12-17-2018 Patient encounter procedure Kris Yung [facility] Work Phone: Start: 11-01-2018 Patient encounter procedure Kris Yung [facility] Work Phone: Start: 07-23-2018 Patient encounter procedure Kris Yung [facility] Work Phone: Start: 07-09-2018 Patient encounter procedure Kris Yung [facility] Work Phone: Start: 06-07-2018 Patient encounter procedure Kris Yung [facility] Work Phone: Start: 05-21-2018 Patient encounter procedure Kris Yung [facility] Work Phone: Start: 03-06-2018 Patient encounter procedure Kris Yung [facility] Work Phone: Start: 02-15-2018 Patient encounter procedure Kris Yung [facility] Work Phone: Start: 12-05-2017 Patient encounter procedure Kris Yung [facility] Work Phone: Start: 11-02-2017 Patient encounter procedure Kris Yung [facility] Work Phone: Start: 10-19-2017 Patient encounter procedure Kris Yung [facility] Work Phone: Start: 09-04-2017 Patient encounter procedure Kris Yung [facility] Work Phone: Start: 07-20-2017 Patient encounter procedure Kris Yung [facility] Work Phone: Start: 03-12-2017 Ambulatory [facility] Patient encounter procedure Foreign Rico Work Phone: [employer] [facility] Work Phone: Procedures Date Procedure Procedure Detail Performing Clinician Start: 05-14-[address] FOREIGN RICO DO Abdominal hysterectomy DR COBY RICO DO H/O: surgery History of parat hyroid surgery( Confirmed ) DR FOREIGN RICO DO Heart structure (bod y structure) DR FOREIGN RICO DO Plan of Treatment Date Care Activity Detail Author Start: 01-08-2023 FUV, Provider: Kris Yung, Status: Pen, Time: 11:00 AM FUV, Provider: Kris Yung, Status: Pen, Time: 11:00 AM [employer] [facility] Work Phone: Start: 10-06-2022 FUV, Provider: Kris Yung, Status: Pen, Time: 11:30 AM FUV, Provider: Kris Yung, Status: Pen, Time: 11:30 AM [employer] [facility] Work Phone: Start: 07-10-2022 FUV, Provider: Maximiliano Monge, Status: Pen, Time: 1:00 PM FUV, Provider: Maximiliano Monge, Status: Pen, Time: 1:00 PM [facility] [place]: Start: 07-07-2022 EPV, Provider: Kris Yung, Status: Pen, Time: 3:30 PM EPV, Provider: Kris Yung, Status: Pen, Time: 3:30 PM [facility] [place] Phone: Start: 06-12-2022 NPV, Provider: Maximiliano Monge, Status: Pen, Time: 1:30 PM NPV, Provider: Maximiliano Monge, Status: Pen, Time: 1:30 PM [facility] Work Phone: Start: 11-17-2021 FUV, Provider: Kris Yung, Status: Pen, Time: 11:00 AM FUV, Provider: Kris Yung, Status: Pen, Time: 11:00 AM [facility] Work Phone: Start: 11-12-2020 FUV, Provider: Kris Yung, Status: Pen, Time: 3:30 PM FUV, Provider: Kris Yung, Status: Pen, Time: 3:30 PM [facility] Work Phone: Immunizations Immunization Date Immunization Notes Care Provider [facility] 04-07-2023 SARS-CoV-2 (COVID-19 ) [id number] DR FOREIGN RICO DO [facility] 04-04-2023 Pneumococcal conjuga te PCV20, polysaccharide [id number] conjugate, adjuvant, PF; Translations: [Prevnar 20] DR FORIEGN RICO DO [facility] 02-21-2023 RSV vaccine preF3, recombinant LUPIS FERGUSON MD [facility] 01-25-2023 influenza virus vaccine, unspecified formulation MARCELO MUNGUIA [facility] 02-05-2022 Fluzone High-Dose Quadrivalent 0.7 ML Intramuscular Suspension Prefilled Syringe Foreign Rico Work Phone: [facility] Work Phone: 02-05-2022 influenza virus vaccine, unspecified formulation DR RIRI DICKSON DO [facility] 11-01-2021 tetanus and diphther ia toxoids, adsorbed, preservative free, for adult use (5 Lf of tetanus toxoid and 2 Lf of diphtheria toxoid); Translations: [Tenivac] DR FOREIGN RICO DO [facility] 11-01-2021 tetanus and diphther ia toxoids, adsorbed, preservative free, for adult use (5 Lf of tetanus toxoid and 2 Lf of diphtheria toxoid); Translations: [Tenivac] DR FOREIGN RICO DO [facility] 08-13-2021 SARS-CoV-2 mRNA (dihgimwhhup-dnzi-hacl ose) vaccine DR FOREIGN RICO DO [facility] 02-14-2021 Fluad Quadrivalent 0 .5 ML Intramuscular Prefilled Syringe Foreign Rico Work Phone: [facility] Work Phone: 02-14-2021 influenza virus vaccine, unspecified formulation DR FOREIGN RICO DO [facility] 02-14-2021 SARS-CoV-2 mRNA (tozinameran) vaccine DR FOREIGN RICO DO [facility] Payers Date Payer Category Payer Medicare [id number] 2021 Unknown [id number] 2008 Medicare 2008 Private Health Insurance 1950 Unknown [id number] 2.16. 840.1.195858.3.579.2.356 1950 Unknown [id number] 2.16. 840.1.975616.3.579.2.356 1950 Unknown [id number] 2.16.8 40.1.133468.3.579.2.1068 1948 Unknown [id number] 2.16.8 40.1.904306.3.579.2.1068 1948 Unknown [id number] 2.16.8 40.1.973664.3.579.2.1068 1948 Unknown [id number] 2.16.8 40.1.943503.3.579.2.627 1948 Unknown [id number] 2.16.8 40.1.905541.3.579.2.627 1948 Unknown [id number] 2.16.8 40.1.996900.3.579.2.627 1948 Unknown [id number] 2.16.8 40.1.324763.3.579.2.627 1948 Unknown [id number] 2.16.8 40.1.393583.3.579.2.62 1948 Unknown [id number] 2.16.8 40.1.808620.3.579.2.627 1948 Unknown [id number] 2.16.8 40.1.404759.3.579.2.62 1948 Unknown [id number] 2.16.8 40.1.895722.3.579.2.627 1948 Unknown [id number] 2.16.8 40.1.896134.3.579.2.62 1948 Unknown [id number] 2.16.8 40.1.736206.3.579.2.627 1948 Unknown [id number] 2.16.8 40.1.360255.3.579.2.62 1948 Unknown [id number] 2.16.8 40.1.429017.3.579.2.627 1948 Unknown [id number] 2.16.8 40.1.451048.3.579.2.62 1948 Unknown [id number] 2.16.8 40.1.533269.3.579.2.627 1948 Unknown [id number] 2.16.8 40.1.590907.3.579.2.627 1948 Unknown [id number] 2.16.8 40.1.391047.3.579.2.627 1948 Unknown [id number] 2.16.8 40.1.205407.3.579.2.159 1948 Unknown [id number] 2.16.8 40.1.054782.3.579.2.159 1948 Unknown [id number] 2.16.8 40.1.362864.3.579.2.159 1948 Unknown [id number] 2.16.8 40.1.043173.3.579.2.159 1948 Unknown [id number] 2.16.8 40.1.229835.3.579.2.159 1948 Unknown [id number] 2.16.8 40.1.703175.3.579.2.159 1948 Unknown [id number] 2.16.8 40.1.487356.3.579.2.159 1948 Unknown [id number] 2.16.8 40.1.243281.3.579.2.159 1948 Unknown [id number] 2.16.8 40.1.830102.3.579.2.159 1948 Unknown [id number] 2.16.8 40.1.242237.3.579.2.159 1948 Unknown [id number] 2.16.8 40.1.360972.3.579.2.159 1948 Unknown [id number] 2.16.8 40.1.067851.3.579.2.159 1948 Unknown [id number] 2.16.8 40.1.153178.3.579.2.159 1948 Unknown [id number] 2.16.8 40.1.348262.3.579.2.159 1948 Unknown [id number] 2.16.8 40.1.585414.3.579.2.159 1948 Unknown [id number] 2.16.8 40.1.741598.3.579.2.159 1948 Unknown [id number] 2.16.8 40.1.656776.3.579.2.159 1948 Unknown [id number] 2.16.8 40.1.299904.3.579.2.159 1948 Unknown [id number] 2.16.8 40.1.099655.3.579.2.159 1948 Unknown [id number] 2.16.8 40.1.790626.3.579.2.159 1948 Unknown [id number] 2.16.8 40.1.899367.3.579.2.159 1948 Unknown [id number] 2.16.8 40.1.858386.3.579.2.159 1948 Unknown [id number] 2.16.8 40.1.180904.3.579.2.159 1948 Unknown [id number] 2.16.8 40.1.993830.3.579.2.159 1948 Unknown [id number] 2.16.8 40.1.521915.3.579.2.159 1948 Unknown [id number] 2.16.8 40.1.806633.3.579.2.159 1948 Unknown [id number] 2.16.8 40.1.287898.3.579.2.159 1948 Unknown [id number] 2.16.8 40.1.433798.3.579.2.159 1948 Unknown [id number] 2.16.8 40.1.964181.3.579.2.159 1948 Unknown [id number] 2.16.8 40.1.721585.3.579.2.159 1948 Unknown [id number] 2.16.8 40.1.527585.3.579.2.159 1948 Unknown [id number] 2.16.8 40.1.478409.3.579.2.159 1948 Unknown [id number] 2.16.8 40.1.735322.3.579.2.159 Unknown Social History Date Type Detail Facility Marital History - Cu rrently Marital History - Currently [email or web address] [facility] Phone: Medical Equipment Procedure Code Equipment Code Equipment Origin al Text Equipment Identifier Dates See Instructions , Blood glucose test strips . Test Blood sugar 1x a day E11.65, # 50 EA, 2 Refill(s), Pharmacy: [facility] #[id number], 162, cm, 03/13/23 13:53:00 EDT, Height, 94.8, kg, 03/13/23 13:53:00 EDT, Dosing Weight Start: 03-14-2023 See Instructions , Blood glucose test strips . Test Blood sugar 1x a day E11.65, # 50 EA, 2 Refill(s), Pharmacy: [facility]/pharmacy #[id number], 162, cm, 03/13/23 13:53:00 EDT, Height, 94.8, kg, 03/13/23 13:53:00 EDT, Dosing Weight Start: 03-14-2023 See Instructions , Blood glucose test strips . Test Blood sugar 1x a day E11.65, # 50 EA, 2 Refill(s), Pharmacy: [facility]/pharmacy #[id number], 162, cm, 03/13/23 13:53:00 EDT, Height, 94.8, kg, 03/13/23 13:53:00 EDT, Dosing Weight Start: 03-14-2023 See Instructions , Blood glucose test strips . Test Blood sugar 1x a day E11.65, # 50 EA, 2 Refill(s), Pharmacy: [facility]/pharmacy #[id number], 162, cm, 03/13/23 13:53:00 EDT, Height, 94.8, kg, 03/13/23 13:53:00 EDT, Dosing Weight Start: 03-14-2023 See Instructions , Blood glucose test strips . Test Blood sugar 1x a day E11.65, # 50 EA, 2 Refill(s), Pharmacy: [facility]/pharmacy #[id number], 162, cm, 03/13/23 13:53:00 EDT, Height, 94.8, kg, 03/13/23 13:53:00 EDT, Dosing Weight Start: 03-14-2023 Functional Status Date Assessment Result Facility 12-02-2021 Functional Status Standard Safet y ID band on, Allergy Band on, Call device within reach, Bed in low position, Wheels locked, Upper/Half-Length side-rails up, Phone within reach, personal items within reach, Assistive devices within reach, Visitor at bedside, Safety level maintained, Non-Slip footwear [facility] 11-11-2021 Functional Status OBJECTIVE BP: 109/66 Posture: forward shoulder and head posture Gait: amb with no AD, limited trunk swing Transfers: WNL Sensation: no abnomrlaities or asymmetries reported Reflexes: NT Shoulder ROM: WNL, reports pain in R shoulder through out Special Tests Park et al:RTC Painful Arc: pos Drop Arm: neg Infraspinatus Test/resisted ER: pos Belly press (subscap): neg m-cstib: avg 2.53 sway with 22% impairment Activities-specific Balance Confidence Scale: 55% [facility] NEGATED: Highlighted row Functional performance Functional status health issues are not documented Disease [facility] Work Phone: Mental Status Date Assessment Result Facility 12-02-2021 Mental Status Orientation Orie nted x 4 [facility] NEGATED: Highlighted row Cognitive function [Interpretation] Cognitive status health issues are not documented Disease [facility] Work Phone: Clinical Notes 07-08-2021 to 07-17-2023 RadiologyLaboratoryRadiologyLaboratoryRadiologyLaboratoryRadiologyLaboratoryRadi ologyLaboratoryRadiologyLaboratoryRadiologyLaboratoryRadiologyLaboratoryRadiolog yLaboratoryRadiologyLaboratoryRadiology Note Date & Type Note Facility 07-17-2023 Note Patient Education Fest[facility] Discharge Instructions Angiography [facility] Go to the Emergency Room or call 911 if: ? Bleeding from the procedure site ? Unarousable from sleep or slurred speech Call your Doctor if: ? You have any signs of infection from the procedure site, such as redness, pus, drainage, fever, pain, cold or numbness at the site Angiography procedures Special Instructions ? Do not lift anything heavier than 10 pounds for 2 days ? No swimming, hot tubs, or sitting in a bathtub for 7 days, you may shower after 24 hours ? No sex for 24 hours ? Walk only when necessary for 24 hours. You may go up and down stairs when you go home, Do not make unnecessary trips up or down the stairs ? Do not apply any creams or lotions to the site ? Remove your dressing after 24 hours ? If you are prescribed Plavix, Effient, Brilinta or Aspirin do not stop taking these medications without talking to your program officer Additional Instructions to follow for 24 hours if you received Sedation: ? Rest for the remainder of the day ? Drink plenty of liquids today ? Do not drive a car or operate machinery ? Do not drink alcoholic beverages ? Do not make any important decisions ? Do not sign important or legal papers ? For your safety, plan to have a responsible adult with you for the rest of the day and also the night [facility] 01-01-2023 Note ORIGINAL FROM: [address] [address] PROCEDURE FOR: [place] [place] [address] Home: PID#: [id number] Exam#: [id number] : 1950 Age: 72 TO: FOREIGN RICO [address] [address] Fax: NO FAX EXAMINATION: SCREENING DIGITAL BILATERAL MAMMOGRAM WITH TOMOSYNTHESIS, 01/01/2023 9:40 am TECHNIQUE: Screening mammography of the bilateral breasts was performed with tomosynthesis. 2D standard and 3D tomosynthesis combination imaging performed through both breasts in the MLO and CC projection. Computer aided detection was utilized in the interpretation of this exam. COMPARISON: 06/08/2022, 11/25/2021, 08/17/2020 HISTORY: Breast cancer screening. FINDINGS: BREAST DENSITY: Scattered fibroglandular tissue There is a benign appearing unchanged density in the right breast. There are benign appearing calcifications in both breasts. There are no significant masses or calcifications. IMPRESSION: No mammographic evidence of malignancy. Continued screening with annual mammograms is recommended. BIRADS: MAMMOGRAM BI-RADS: 2: Benign finding RECALL: 1 year screening RECALL TYPE: mammo LETTER SENT: Normal BI-RADS 1 and 2 Interpreted by: Daniel Fischer MD Preliminary Report By: Daniel Fischer MD Electronically signed By Daniel Fischer MD Dictated Date: 01/01/2023 11:02:35 AM Prelim Date: 01/01/2023 11:05:14 AM Sign Date: 01/01/2023 11:05:14 AM Ordering Provider: FOREIGN RICO Publication Designer: SAPNA DE LA CRUZ RT(R)(M)(CT) TECHNICAL WRITING LEAD/MGR letter sent: Normal BI-RADS 1 and 2 Mammogram BI-RADS: 2 Benign [facility] 05-08-2022 History of Present illness Narrative This is a patient I have seen in the past for her hypothyroidism. 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 She is referred today for recently diagnosed type 2 diabetes. Past medical history of A-fib sleep apnea COPD spinal stenosis, OA.a1c 7.7 at pcp about 2 months agofeels finevision stable.lives c her husbandcreat 1.o ... 2021has had some DM nutr instruction in pastwt. [facility] mother c DM at late stages of lifehas podia. dr long: pos for polydipsia . some fatigue. no blurry visionhas had recent ortho gluctd. shots. (may have raised sugars some)remains on coumadinbowels...ok no diarrheafeet ok [facility] [facility] Work Phone: 05-07-2022 History of Present illness Narrative a1c 7.7 at pcp about 2 months agofeels finevision stable.creat 1.o 2021has had some DM nutr instructionwt. [facility]x mother c DM at late stages of lifehas podia. dr long pos for polydipsia . some fatigue. no blurry visionhas had recent ortho gluctd. shots.remains on coumadinbowels...ok no diarrheafeet ok [employer] [facility] Work Phone: 04-12-2022 HCoV 229E RNA VICKI+non-probe Ql (Nph) Not Detected *NA* (04/12/22 5:51 PM) AH Auto Viro/Sero SS 12-02-2021 Hospital Discharge instructions Patient Education 12/02/2021 10:59:17 Kidney Stone w/ Colic Kidney Stone with Pain The sharp cramping pain on either side of your lower back and nausea/vomiting that you have are because of a small stone that has formed in the kidney. It is now passing down a narrow tube (ureter) on its way to your bladder. Once the stone reaches your bladder, the pain will often stop. But it may come back as the stone continues to pass out of the bladder and through the urethra. The stone may pass in your urine stream in one piece. The size may be 1/16 inch to 1/4 inch (1 mm to 6 mm). Or, the stone may break up into alfred fragments that you may not even notice. Once you have had a kidney stone, you are at risk of getting another one in the future. There are 4 types of kidney stones. Eighty percent are calcium stones mostly calcium oxalate but also some with calcium phosphate. The other 3 types include uric acid stones, struvite stones (from a preceding infection), and rarely, cystine stones. Most stones will pass on their own, but may take from a few hours to a few days. Sometimes the stone is too large to pass by itself. In that case, the healthcare provider will need to use other ways to remove the stone. These techniques include: Lithotripsy. This uses ultrasound waves to break up the stone. Ureteroscopy. This pushes a basket-like instrument through the urethra and bladder and into the ureter to pull out the stone. Various types of direct surgery through the skin Home care The following are general care guidelines: Drink plenty of fluids. This means at least 12, 8-ounce glasses of fluid mostly water a day. Each time you urinate, do so in a jar. Pour the urine from the jar through the strainer and into the toilet. Continue doing this until 24 hours after your pain stops. By then, if there was a kidney stone, it should pass from your bladder. Some stones dissolve into sand-like particles and pass right through the strainer. In that case, you won t ever see a stone. Save any stone that you find in the strainer and bring it to your healthcare provider to look at. It may be possible to stop certain types of stones from forming. For this reason, it is important to know what kind of stone you have. Try to stay as active as possible. This will help the stone pass. Don't stay in bed unless your pain keeps you from getting up. You may notice a red, pink, or brown color to your urine. This is normal while passing a kidney stone. If you develop pain, you may take ibuprofen or naproxen for pain, unless another medicine was prescribed. If you have chronic liver or kidney disease, talk with your healthcare provider before taking these medicines. Also talk with your provider if you've had a stomach ulcer or GI bleeding. Preventing stones Each year for the next 5 to 7 years, you are at risk that a new stone will form. Your risk is a 50% chance over this time period. The risk is higher if you have a family history of kidney stones or have certain chronic illnesses like hypertension, obesity, or diabetes. But you can make changes to your lifestyle and diet that can lower your risk for another stone. Most kidney stones are made of calcium. The following is advice for preventing another calcium stone. If you don t know the type of stone you have, follow this advice until the cause of your stone is found. Things that help: The most important thing you can do is to drink plenty of fluids each day. See home care above. Eat foods that contain phytates. These include wheat, rice, rye, barley, and beans. Phytates are substances that may lower your risk for any type of stone to form. Eat more fruits and vegetables. Choose those that are high in potassium. Eat foods high in natural citrate like fruit and low-sugar fruit juices. Having too little calcium in your diet can put you at risk for calcium kidney stones. Eat a normal amount of calcium in your diet and talk with your healthcare provider if you are taking calcium supplements. Cutting back on your calcium intake may raise your risk. New research shows that eating calcium-rich and oxalate-rich foods together lowers your risk for stones by binding the minerals in the stomach and intestines before they can reach the kidneys. Limit salt intake to 2 grams (1 teaspoon) per day. Use limited amounts when cooking, and don t add salt at the table. Processed and canned foods are usually high in salt. Spinach, rhubarb, peanuts, cashews, almonds, grapefruit, and grapefruit juice are all high oxalate foods. You should limit how much of these you eat. Or eat them with calcium-rich foods. These include dairy products, dark leafy greens, soy products, and calcium-enriched foods. Reducing the amount of animal meat and high protein foods in your diet may lower your risk for uric acid stones. Avoid excess sugar (sucrose) and fructose (sweetener in many soft drinks) in your diet. If you take vitamin C as a supplement, don't take more than 1,000 mg a day. A dietitian or your healthcare provider can give you information about changes in your diet that will help prevent more kidney stones from forming. Follow-up care Follow up with your healthcare provider, or as advised, if the pain lasts more than 48 hours. Talk with your provider about urine and blood tests to find out the cause of your stone. If you had an X-ray, CT scan, or other diagnostic test, you will be told of any new findings that may affect your care. Call 911 Call 911 if you have any of these: Weakness, dizziness, or fainting When to seek medical advice Call your healthcare provider right away if any of these occur: Pain that is not controlled by the medicine given Repeated vomiting or unable to keep down fluids Fever of 100.4 F (38 C) or higher, or as directed by your healthcare provider Passage of solid red or brown urine (can't see through it) or urine with lots of blood clots Foul-smelling or cloudy urine Unable to pass urine for 8 hours and increasing bladder pressure [id number] [employer]. [address] [place] [address], [place] [address]. All rights reserved. This information is not intended as a substitute for professional medical care. Always follow your healthcare professional's instructions. Follow Up Care 12/02/2021 08:51:57 With:Your urologist Address: When:2-4 days With:Go to emergency room if symptoms worsen Address:Unknown When:2-4 days [facility] Ansongreg Sabillon 12-02-2021 Note Discharge Instructions Thank you for allowing [facility] to assist you with your healthcare needs. The following is important discharge information regarding your hospital visit. Diagnosis from Today's Visit Ureteral calculus Abdominal pain What to Do Next Instructions from Your Care Team Call your urologist today to arrange close follow-up. You have a 5 mm stone at the left ureteral vesicle junction (next to your bladder). No qualifying data available. Post Acute Orders No qualifying data available. You Need to Schedule the Following Appointments Follow Up with Your urologist When Within 2-4 days Where: Follow Up with Go to emergency room if symptoms worsen When Within 2-4 days Allergies erythromycin (Nausea) penicillin (Swelling) Medications Please ask your primary doctor or pharmacist before taking any other medication not listed, including over the counter drugs, herbal medications, vitamins and or supplements as they may interact with your home medications. What How Much When Why Instructions Last Dose New acetaminophen-hydrocodone ([place] 325- 5 mg oral tablet) 1 tab(s) by mouth Every 4 hours as needed for for pain Ureteral calculus Duration: 5 Days Printed Prescription New ondansetron (Zofran 4 mg oral tablet) 1 tab(s) by mouth Every 8 hours Ureteral calculus Printed Prescription Changed tamsulosin (Flomax 0.4 mg oral capsule) 1 cap by mouth Every day Ureteral calculus Printed Prescription Changed tamsulosin (Flomax 0.4 mg oral capsule) 1 cap by mouth Every day Kidney stone Vertigo Unchanged albuterol (Ventolin HFA MDI (90 mcg/ inh) inhalation aerosol) 2 puff(s) by inhalation Every 4 hours as needed for as needed for wheezing Unchanged atorvastatin (atorvastatin 20 mg oral tablet) 1 tab(s) by mouth Daily at bedtime Duration: 90 Days Unchanged budesonide (budesonide 0.5 mg/ 2 mL inhalation suspension) 2 Milliliter Nebulized inhalation Two (2) times a day Unchanged calcium citrate 2 tab(s) by mouth Once a day 500 mg Unchanged cholecalciferol (Vitamin D3 50 mcg (2000 intl units) oral tablet) 1 tab(s) by mouth Every day Duration: 90 Days Unchanged dilTIAZem (DilTIAZem Hydrochloride ER 180 mg/ 24 hours oral capsule, extended release) TAKE 1 CAPSULE BY MOUTH EVERY DAY Unchanged escitalopram (escitalopram 10 mg oral tablet) 1 tab(s) by mouth Once a day Unchanged fluticasone-vilanterol (Breo Ellipta 200 mcg-25 mcg/ inh inhalation powder) TAKE 1 PUFF BY MOUTH EVERY DAY Unchanged furosemide (furosemide 20 mg oral tablet) 1 tab(s) by mouth Once a day Unchanged levothyroxine (levothyroxine 50 mcg (0.05 mg) oral tablet) 1 tab(s) by mouth Once a day Unchanged loperamide (Imodium A-D 2 mg oral tablet) 1 tab(s) by mouth Every 4 hours as needed for abdominal pain/diarrhea Unchanged meclizine (meclizine 12.5 mg oral tablet) 1 tab(s) by mouth Three (3) times a day as needed for as needed for dizziness Unchanged nystatin topical (nystatin 100,000 units/ g topical powder) 1 application Topical Two (2) times a day as needed for Rash Duration: 30 Days Apply to the affected area 2-3 times daily until healing is complete. Unchanged warfarin See instructions 8 mg Oral q day sunday Unchanged warfarin See instructions 6mg Oral q day -sunday Please take this list to your next doctor s visit. Bring all medications you take, including over the counter medications, herbals and other supplements with you to your doctor s visit. Patients and families are reminded to discard old lists and to update any records with all medication providers or retail pharmacies. Education Materials Kidney Stone with Pain The sharp cramping pain on either side of your lower back and nausea/vomiting that you have are because of a small stone that has formed in the kidney. It is now passing down a narrow tube (ureter) on its way to your bladder. Once the stone reaches your bladder, the pain will often stop. But it may come back as the stone continues to pass out of the bladder and through the urethra. The stone may pass in your urine stream in one piece. The size may be 1/16 inch to 1/4 inch (1 mm to 6 mm). Or, the stone may break up into alfred fragments that you may not even notice. Once you have had a kidney stone, you are at risk of getting another one in the future. There are 4 types of kidney stones. Eighty percent are calcium stones mostly calcium oxalate but also some with calcium phosphate. The other 3 types include uric acid stones, struvite stones (from a preceding infection), and rarely, cystine stones. Most stones will pass on their own, but may take from a few hours to a few days. Sometimes the stone is too large to pass by itself. In that case, the healthcare provider will need to use other ways to remove the stone. These techniques include: Lithotripsy. This uses ultrasound waves to break up the stone. Ureteroscopy. This pushes a basket-like instrument through the urethra and bladder and into the ureter to pull out the stone. Various types of direct surgery through the skin Home care The following are general care guidelines: Drink plenty of fluids. This means at least 12, 8-ounce glasses of fluid mostly water a day. Each time you urinate, do so in a jar. Pour the urine from the jar through the strainer and into the toilet. Continue doing this until 24 hours after your pain stops. By then, if there was a kidney stone, it should pass from your bladder. Some stones dissolve into sand-like particles and pass right through the strainer. In that case, you won t ever see a stone. Save any stone that you find in the strainer and bring it to your healthcare provider to look at. It may be possible to stop certain types of stones from forming. For this reason, it is important to know what kind of stone you have. Try to stay as active as possible. This will help the stone pass. Don't stay in bed unless your pain keeps you from getting up. You may notice a red, pink, or brown color to your urine. This is normal while passing a kidney stone. If you develop pain, you may take ibuprofen or naproxen for pain, unless another medicine was prescribed. If you have chronic liver or kidney disease, talk with your healthcare provider before taking these medicines. Also talk with your provider if you've had a stomach ulcer or GI bleeding. Preventing stones Each year for the next 5 to 7 years, you are at risk that a new stone will form. Your risk is a 50% chance over this time period. The risk is higher if you have a family history of kidney stones or have certain chronic illnesses like hypertension, obesity, or diabetes. But you can make changes to your lifestyle and diet that can lower your risk for another stone. Most kidney stones are made of calcium. The following is advice for preventing another calcium stone. If you don t know the type of stone you have, follow this advice until the cause of your stone is found. Things that help: The most important thing you can do is to drink plenty of fluids each day. See home care above. Eat foods that contain phytates. These include wheat, rice, rye, barley, and beans. Phytates are substances that may lower your risk for any type of stone to form. Eat more fruits and vegetables. Choose those that are high in potassium. Eat foods high in natural citrate like fruit and low-sugar fruit juices. Having too little calcium in your diet can put you at risk for calcium kidney stones. Eat a normal amount of calcium in your diet and talk with your healthcare provider if you are taking calcium supplements. Cutting back on your calcium intake may raise your risk. New research shows that eating calcium-rich and oxalate-rich foods together lowers your risk for stones by binding the minerals in the stomach and intestines before they can reach the kidneys. Limit salt intake to 2 grams (1 teaspoon) per day. Use limited amounts when cooking, and don t add salt at the table. Processed and canned foods are usually high in salt. Spinach, rhubarb, peanuts, cashews, almonds, grapefruit, and grapefruit juice are all high oxalate foods. You should limit how much of these you eat. Or eat them with calcium-rich foods. These include dairy products, dark leafy greens, soy products, and calcium-enriched foods. Reducing the amount of animal meat and high protein foods in your diet may lower your risk for uric acid stones. Avoid excess sugar (sucrose) and fructose (sweetener in many soft drinks) in your diet. If you take vitamin C as a supplement, don't take more than 1,000 mg a day. A dietitian or your healthcare provider can give you information about changes in your diet that will help prevent more kidney stones from forming. Follow-up care Follow up with your healthcare provider, or as advised, if the pain lasts more than 48 hours. Talk with your provider about urine and blood tests to find out the cause of your stone. If you had an X-ray, CT scan, or other diagnostic test, you will be told of any new findings that may affect your care. Call 911 Call 911 if you have any of these: Weakness, dizziness, or fainting When to seek medical advice Call your healthcare provider right away if any of these occur: Pain that is not controlled by the medicine given Repeated vomiting or unable to keep down fluids Fever of 100.4 F (38 C) or higher, or as directed by your healthcare provider Passage of solid red or brown urine (can't see through it) or urine with lots of blood clots Foul-smelling or cloudy urine Unable to pass urine for 8 hours and increasing bladder pressure [id number] [employer]. [address] [place] [address]. All rights reserved. This information is not intended as a substitute for professional medical care. Always follow your healthcare professional's instructions. Additional Information VACCINATE! IT SAVES LIVES! Members of the community who have not yet received the COVID-19 vaccine and would like to receive it can visit one of [facility] vaccine clinics. There are many vaccine clinic locations within the [facility]. For locations and available times, please visit [email or web address]. It is important to note that some COVID mobile vaccine clinics are held outdoors and may be canceled in rainy or stormy conditions. To learn more about pediatric vaccinations (ages 5-11), we invite you to visit the [facility] webpage. [email or web address] To learn more about the COVID-19 vaccine, we invite you to visit the [facility] website for a list of frequently asked questions. [email or web address] [facility] Patient Portal Access Instructions: Stay connected with your healthcare team and access your personal medical information anytime with the [facility] Patient Portal. If you would like a full copy of your medical records please contact the [facility] Medical Records Department Sunday through Sunday between 8a.m. and 4:30p.m. Please follow the directions below to access the portal: 1.Access the email account you provided upon registration to the hospital.2.Look for an invitation email from [facility].3.Open the email and access the invitation link: Accept Invitation to [facility].Fill in the required sandoval to create your account. Sign into [email or web address] with your username and password that you created in the above steps to stay up to date. You can then view a summary of results, a summary of your visits, and the ability to download your summaries to your computer or send the information securely to a physician. Remember that your healthcare information is confidential, so carefully consider who you will allow to register on the [facility] Patient Portal for access to your information. You can also access the [facility] Patient Portal on the [employer]. Simply click on Health Records under Health Data and then click on the [employer] logo. HOW TO SAFELY DISPOSE OF PRESCRIPTION MEDICATIONS Please use one of the following methods to safely dispose of your unused medications. 1.Use a drug disposal kit: the drug disposal pouch allows you to safely discard your old and unused drugs. Ask your nurse to give you one when you are discharged.2.Visit a local take-back location: Many local pharmacies and police departments have programs that collect old and unwanted prescription drugs. Call your local pharmacy or go to http://[employer].Vast/9Z6Xu3u to find one close to you.3.Make use of household items: Use cat litter or old coffee grounds to dispose medications if other options are not available. Mix your drugs with these household products, seal them in an airtight container and throw it into the garbage. Call [facility]: [phone] to be sure your drugs can be disposed of in this way. Some medicines may require a different approach.4.Never flush your medications down the toilet. IF YOU HAVE BEEN PRESCRIBED AN OPIOIDS FOR PAIN If you have been prescribed an opioid (such as hydrocodone, oxycodone or morphine), it is critical to understand the possible side effects and risks of opioid pain medications. Even when taken as directed, opioids can have several side effects including: Tolerance, meaning you might need to take more of a medication for the same pain relief. Nausea, vomiting and/or constipation. Sleepiness, dizziness, dry mouth, confusion, depression or itching. Physical dependence, meaning you have withdrawal symptoms when a medication is stopped ? this can develop within a few days. KNOW YOUR RESPONSIBILITIES It is important to know exactly how much and how often to take the opioid pain medications you are prescribed. Never take opioids in higher amounts or more often than prescribed. Do not combine opioids with alcohol or other drugs that cause drowsiness, such as benzodiazepines, also known as benzos, including diazepam and alprazolam, muscle relaxants or sleep aids. Never sell or share prescription opioids. This is illegal. Store opioids in a secure place and out of reach of others (including children, family, friends and visitors). The last page(s) of this document has been signed and retained as a CHART COPY Signatures Patient Education Materials Kidney Stone w/ Colic Medication Leaflets My discharge plan and instructions have been reviewed and explained to me and ILYNN MARCIA V understand my current condition and have read and understand these discharge instructions. I have received a written copy of the plan/instructions. If I have questions, I am aware that I should contact my doctor. 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 Multiplanar reformatted images are provided for review. Automated exposure control, iterative reconstruction, and/or weight based adjustment of the mA/kV was utilized to reduce the radiation dose to as low as reasonably achievable. COMPARISON: CT abdomen/pelvis July 31, 2021 HISTORY: ORDERING SYSTEM PROVIDED HISTORY: Reason for Exam: LEFT flank pain. FINDINGS: Lower Thorax: There is bibasilar atelectasis and scarring. The heart is mildly enlarged. Prior ASD closure device. GI Tract: There is a small hiatal hernia. The stomach and small bowel are otherwise normal. The colon is normal. The appendix is not visualized. There is no pericecal inflammation. Solid Organs: The liver, gallbladder, pancreas, spleen, and adrenal glands are normal. Collecting System: There is migration of a 5 mm distal ureteral stone located within the distal ureter associated with mild to moderate left hydroureteronephrosis (series 2, image 86). There is mild perinephric fat stranding with edema within the renal pelvis. Previously seen 3 mm left renal calculi at the UVJ is no longer seen. The right kidney and visualized right ureter are unremarkable. Pelvis: Limited evaluation of the pelvic structures secondary to streak artifact from hip prosthesis. Vasculature: There are atherosclerotic calcifications of the nonaneurysmal abdominal aorta and branching vessels.. Lymph Nodes, Mesentery, and Peritoneum: No lymphadenopathy is identified. No free intraperitoneal fluid or gas is identified. Bones: There are moderate multilevel degenerative changes without acute osseous process. Grade 1 retrolisthesis of L3 on L4 and grade 1 anterolisthesis of L5 on S1 are unchanged. Chronic compression deformity of T12 is unchanged. Bilateral hip arthroplasties are noted. Superficial Soft Tissues: Small fat containing umbilical hernia. IMPRESSION: Migration of a now 5 mm distal left ureteral stone associated with interval worsening of mild to moderate left hydroureteronephrosis. Previously seen 3 mm left renal calculi at the UVJ is no longer visualized. This is either a passed stone or within the portion of distal UVJ obscured by streak artifact from the bilateral hip prostheses. I have personally reviewed the images of this examination and agree with the resident's finding and interpretation. Interpreted by: Riri Goel MD Preliminary Report By: Marixa Guillermo Electronically signed By Riri Goel MD Dictated Date: 12/02/2021 10:15:03 AM Prelim Date: 12/02/2021 10:34:57 AM Sign Date: 12/02/2021 10:46:03 AM Ordering Provider: [facility] 12-02-2021 Note ORIGINAL EXAMINATION: CT OF THE ABDOMEN AND PELVIS WITHOUT CONTRAST12/02/2021 9:40 am TECHNIQUE: CT of the abdomen and pelvis was performed without the administration of intravenous contrast. Multiplanar reformatted images are provided for review. Automated exposure control, iterative reconstruction, and/or weight based adjustment of the mA/kV was utilized to reduce the radiation dose to as low as reasonably achievable. COMPARISON: CT abdomen/pelvis July 31, 2021 HISTORY: ORDERING SYSTEM PROVIDED HISTORY: Reason for Exam: LEFT flank pain. FINDINGS: Lower Thorax: There is bibasilar atelectasis and scarring. The heart is mildly enlarged. Prior ASD closure device. GI Tract: There is a small hiatal hernia. The stomach and small bowel are otherwise normal. The colon is normal. The appendix is not visualized. There is no pericecal inflammation. Solid Organs: The liver, gallbladder, pancreas, spleen, and adrenal glands are normal. Collecting System: There is migration of a 5 mm distal ureteral stone located within the distal ureter associated with mild to moderate left hydroureteronephrosis (series 2, image 86). There is mild perinephric fat stranding with edema within the renal pelvis. Previously seen 3 mm left renal calculi at the UVJ is no longer seen. The right kidney and visualized right ureter are unremarkable. Pelvis: Limited evaluation of the pelvic structures secondary to streak artifact from hip prosthesis. Vasculature: There are atherosclerotic calcifications of the nonaneurysmal abdominal aorta and branching vessels.. Lymph Nodes, Mesentery, and Peritoneum: No lymphadenopathy is identified. No free intraperitoneal fluid or gas is identified. Bones: There are moderate multilevel degenerative changes without acute osseous process. Grade 1 retrolisthesis of L3 on L4 and grade 1 anterolisthesis of L5 on S1 are unchanged. Chronic compression deformity of T12 is unchanged. Bilateral hip arthroplasties are noted. Superficial Soft Tissues: Small fat containing umbilical hernia. IMPRESSION: Migration of a now 5 mm distal left ureteral stone associated with interval worsening of mild to moderate left hydroureteronephrosis. Previously seen 3 mm left renal calculi at the UVJ is no longer visualized. This is either a passed stone or within the portion of distal UVJ obscured by streak artifact from the bilateral hip prostheses. I have personally reviewed the images of this examination and agree with the resident's finding and interpretation. Interpreted by: Riri Goel MD Preliminary Report By: Marixa Guillermo Electronically signed By Riri Goel MD Dictated Date: 12/02/2021 10:15:03 AM Prelim Date: 12/02/2021 10:34:57 AM Sign Date: 12/02/2021 10:46:03 AM Ordering Provider: MOHINDER METZ [facility] 12-01-2021 Note ORIGINAL FROM: [facility] [address], [place] [address] PROCEDURE FOR: RAYMON BAILEY [address] [place] [address] Home: PID#: [id number] Exam#: [id number] : 1950 Age: 71 TO: FOREIGN RICO DO [address] [place] [phone] Fax: NO FAX EXAMINATION: ULTRASOUND OF THE RIGHT BREAST 12/01/2021 10:37 am TECHNIQUE: Color flow and real-time targeted ultrasound of the 9 o'clock region were performed. COMPARISON: Mammogram November 25, 2021, August 17 2020, November 18, 2019 HISTORY: ORDERING SYSTEM PROVIDED HISTORY: Reason for Exam: abnormal mammo FINDINGS: There is a 5 mm well-circumscribed round hypoechoic lesion within the right breast at 9 o'clock middle depth. There is an adjacent crescentic hypoechoic structure. This likely correlates with the mammographic finding. There appears to be associated calcifications. No increased vascularity. IMPRESSION: The 5 mm round hypoechoic lesion within the right breast may represent a complicated cyst or fat necrosis and appears probably benign. A six-month follow-up diagnostic right mammogram and right breast ultrasound is recommended to demonstrate stability. BIRADS: MAMMOGRAM BI-RADS: 3: Probably benign RECALL: 6 month follow-up RECALL TYPE: Right mammo+US LETTER SENT: Probably Benign BI-RADS 3 Interpreted by: Kayy Naranjo MD Preliminary Report By: Kayy Naranjo MD Electronically signed By Kayy Naranjo MD Dictated Date: 12/01/2021 5:47:53 PM Prelim Date: 12/01/2021 5:54:36 PM Sign Date: 12/01/2021 5:54:36 PM Ordering Provider: FOREIGN RICO CLINICAL: MAMMOGRAPHIC DENSITY RIGHT BREAST. Publication Designer: ROSELIA GAINES [facility] letter sent: Probably Benign BI-RADS 3 Ultrasound BI-RADS: 3 Probably benign [facility] 12-01-2021 Note ORIGINAL FROM: [address] [address] PROCEDURE FOR: RAYMON DickensLeanne BAILEY [address] [place] [address] Home: PID#: [id number] Exam#: [id number] : 1950 Age: 71 TO: FOREIGN RICO DO [address] [place] [id number] Fax: NO FAX EXAMINATION: ULTRASOUND OF THE RIGHT BREAST 12/01/2021 10:37 am TECHNIQUE: Color flow and real-time targeted ultrasound of the 9 o'clock region were performed. COMPARISON: Mammogram November 25, 2021, August 17 2020, November 18, 2019 HISTORY: ORDERING SYSTEM PROVIDED HISTORY: Reason for Exam: abnormal mammo FINDINGS: There is a 5 mm well-circumscribed round hypoechoic lesion within the right breast at 9 o'clock middle depth. There is an adjacent crescentic hypoechoic structure. This likely correlates with the mammographic finding. There appears to be associated calcifications. No increased vascularity. IMPRESSION: The 5 mm round hypoechoic lesion within the right breast may represent a complicated cyst or fat necrosis and appears probably benign. A six-month follow-up diagnostic right mammogram and right breast ultrasound is recommended to demonstrate stability. BIRADS: MAMMOGRAM BI-RADS: 3: Probably benign RECALL: 6 month follow-up RECALL TYPE: Right mammo+US LETTER SENT: Probably Benign BI-RADS 3 Interpreted by: Kayy Naranjo MD Preliminary Report By: Kayy Naranjo MD Electronically signed By Kayy Naranjo MD Dictated Date: 12/01/2021 5:47:53 PM Prelim Date: 12/01/2021 5:54:36 PM Sign Date: 12/01/2021 5:54:36 PM Ordering Provider: FOREIGN RICO CLINICAL: MAMMOGRAPHIC DENSITY RIGHT BREAST. Publication Designer: ROSELIA GAINES [facility] letter sent: Probably Benign BI-RADS 3 Ultrasound BI-RADS: 3 Probably benign [facility] 07-31-2021 Hospital Discharge instructions Patient Education 07/31/2021 18:47:30 Kidney Stone w/ Colic Kidney Stone with Pain The sharp cramping pain on either side of your lower back and nausea/vomiting that you have are because of a small stone that has formed in the kidney. It is now passing down a narrow tube (ureter) on its way to your bladder. Once the stone reaches your bladder, the pain will often stop. But it may come back as the stone continues to pass out of the bladder and through the urethra. The stone may pass in your urine stream in one piece. The size may be 1/16 inch to 1/4 inch (1 mm to 6 mm). Or, the stone may break up into alfred fragments that you may not even notice. Once you have had a kidney stone, you are at risk of getting another one in the future. There are 4 types of kidney stones. Eighty percent are calcium stones mostly calcium oxalate but also some with calcium phosphate. The other 3 types include uric acid stones, struvite stones (from a preceding infection), and rarely, cystine stones. Most stones will pass on their own, but may take from a few hours to a few days. Sometimes the stone is too large to pass by itself. In that case, the healthcare provider will need to use other ways to remove the stone. These techniques include: Lithotripsy. This uses ultrasound waves to break up the stone. Ureteroscopy. This pushes a basket-like instrument through the urethra and bladder and into the ureter to pull out the stone. Various types of direct surgery through the skin Home care The following are general care guidelines: Drink plenty of fluids. This means at least 12, 8-ounce glasses of fluid mostly water a day. Each time you urinate, do so in a jar. Pour the urine from the jar through the strainer and into the toilet. Continue doing this until 24 hours after your pain stops. By then, if there was a kidney stone, it should pass from your bladder. Some stones dissolve into sand-like particles and pass right through the strainer. In that case, you won t ever see a stone. Save any stone that you find in the strainer and bring it to your healthcare provider to look at. It may be possible to stop certain types of stones from forming. For this reason, it is important to know what kind of stone you have. Try to stay as active as possible. This will help the stone pass. Don't stay in bed unless your pain keeps you from getting up. You may notice a red, pink, or brown color to your urine. This is normal while passing a kidney stone. If you develop pain, you may take ibuprofen or naproxen for pain, unless another medicine was prescribed. If you have chronic liver or kidney disease, talk with your healthcare provider before taking these medicines. Also talk with your provider if you've had a stomach ulcer or GI bleeding. Preventing stones Each year for the next 5 to 7 years, you are at risk that a new stone will form. Your risk is a 50% chance over this time period. The risk is higher if you have a family history of kidney stones or have certain chronic illnesses like hypertension, obesity, or diabetes. But you can make changes to your lifestyle and diet that can lower your risk for another stone. Most kidney stones are made of calcium. The following is advice for preventing another calcium stone. If you don t know the type of stone you have, follow this advice until the cause of your stone is found. Things that help: The most important thing you can do is to drink plenty of fluids each day. See home care above. Eat foods that contain phytates. These include wheat, rice, rye, barley, and beans. Phytates are substances that may lower your risk for any type of stone to form. Eat more fruits and vegetables. Choose those that are high in potassium. Eat foods high in natural citrate like fruit and low-sugar fruit juices. Having too little calcium in your diet can put you at risk for calcium kidney stones. Eat a normal amount of calcium in your diet and talk with your healthcare provider if you are taking calcium supplements. Cutting back on your calcium intake may raise your risk. New research shows that eating calcium-rich and oxalate-rich foods together lowers your risk for stones by binding the minerals in the stomach and intestines before they can reach the kidneys. Limit salt intake to 2 grams (1 teaspoon) per day. Use limited amounts when cooking, and don t add salt at the table. Processed and canned foods are usually high in salt. Spinach, rhubarb, peanuts, cashews, almonds, grapefruit, and grapefruit juice are all high oxalate foods. You should limit how much of these you eat. Or eat them with calcium-rich foods. These include dairy products, dark leafy greens, soy products, and calcium-enriched foods. Reducing the amount of animal meat and high protein foods in your diet may lower your risk for uric acid stones. Avoid excess sugar (sucrose) and fructose (sweetener in many soft drinks) in your diet. If you take vitamin C as a supplement, don't take more than 1,000 mg a day. A dietitian or your healthcare provider can give you information about changes in your diet that will help prevent more kidney stones from forming. Follow-up care Follow up with your healthcare provider, or as advised, if the pain lasts more than 48 hours. Talk with your provider about urine and blood tests to find out the cause of your stone. If you had an X-ray, CT scan, or other diagnostic test, you will be told of any new findings that may affect your care. Call 911 Call 911 if you have any of these: Weakness, dizziness, or fainting When to seek medical advice Call your healthcare provider right away if any of these occur: Pain that is not controlled by the medicine given Repeated vomiting or unable to keep down fluids Fever of 100.4 F (38 C) or higher, or as directed by your healthcare provider Passage of solid red or brown urine (can't see through it) or urine with lots of blood clots Foul-smelling or cloudy urine Unable to pass urine for 8 hours and increasing bladder pressure [id number] [employer]. [address] [place] [address]. All rights reserved. This information is not intended as a substitute for professional medical care. Always follow your healthcare professional's instructions. Follow Up Care 07/31/2021 16:16:54 With:FOREIGN RICO DO Address: [address] [facility] [place] [address]- [phone] When:2-4 days [facility] 07-08-2021 Hospital Discharge instructions Patient Education 07/08/2021 14:42:10 Vertigo, Unspecified Vertigo (Unknown Cause) In addition to helping with hearing, the inner ear is part of the balance center of your body. Problems with the inner ear can a false feeling of motion. This is called vertigo. Often, it feels as if you or the room is spinning. A vertigo attack may cause sudden nausea, vomiting and heavy sweating. Severe vertigo causes a loss of balance and can cause you to fall. During vertigo, small head movements and changes in body position will often make the symptoms worse. You may also have ringing in the ears called tinnitus. An episode of vertigo may last seconds, minutes or hours. Once you are over the first episode, it may never come back. However, symptoms may return off and on. The cause of your vertigo is not yet known. Possible causes of vertigo include: Inflammation of the inner ear Disease of the nerves to the inner ear Movement of calcium particles in the inner ear Poor blood flow to the balance centers of the brain Migraine headaches In older adults, the use of more than one medicine along with some health conditions Home care If symptoms are severe, rest quietly in bed. Change positions very slowly. There is usually one position that will feel best, such as lying on one side or lying on your back with your head slightly raised on pillows. Until you have no symptoms, you are at a higher risk of falling. Let someone help you when you get up. Get rid of home hazards such as loose electrical cords and throw rugs. Don t walk in unfamiliar areas that are not lighted. Use night lights in bathrooms and kitchen areas. Do not drive a car or work with dangerous machinery until symptoms have been gone for at least one week. Take medicine as prescribed to relieve your symptoms. Unless another medicine was prescribed for symptoms of nausea, vomiting, and dizziness, you may use [id number] motion sickness pills. Ask your pharmacist for suggestions. Follow-up care Follow up with your healthcare provider or as directed. If you are referred to a specialist or for testing, make the appointment promptly. When to seek medical advice Call your healthcare provider if any of the following occur: Fever of 100.4 F (38 C) or higher, or as directed by your healthcare provider Vertigo worsens or is not controlled by prescribed medicine Repeated vomiting not relieved by prescribed medicine Severe headache Confusion Weakness of an arm or leg or 1 side of the face Difficulty with speech or vision Loss of consciousness Seizure [id number] [employer]. [address] [place] [address] [place] [address]. All rights reserved. This information is not intended as a substitute for professional medical care. Always follow your healthcare professional's instructions. 07/08/2021 14:42:02 Kidney Stone w/ Colic Kidney Stone with Pain The sharp cramping pain on either side of your lower back and nausea/vomiting that you have are because of a small stone that has formed in the kidney. It is now passing down a narrow tube (ureter) on its way to your bladder. Once the stone reaches your bladder, the pain will often stop. But it may come back as the stone continues to pass out of the bladder and through the urethra. The stone may pass in your urine stream in one piece. The size may be 1/16 inch to 1/4 inch (1 mm to 6 mm). Or, the stone may break up into alfred fragments that you may not even notice. Once you have had a kidney stone, you are at risk of getting another one in the future. There are 4 types of kidney stones. Eighty percent are calcium stones mostly calcium oxalate but also some with calcium phosphate. The other 3 types include uric acid stones, struvite stones (from a preceding infection), and rarely, cystine stones. Most stones will pass on their own, but may take from a few hours to a few days. Sometimes the stone is too large to pass by itself. In that case, the healthcare provider will need to use other ways to remove the stone. These techniques include: Lithotripsy. This uses ultrasound waves to break up the stone. Ureteroscopy. This pushes a basket-like instrument through the urethra and bladder and into the ureter to pull out the stone. Various types of direct surgery through the skin Home care The following are general care guidelines: Drink plenty of fluids. This means at least 12, 8-ounce glasses of fluid mostly water a day. Each time you urinate, do so in a jar. Pour the urine from the jar through the strainer and into the toilet. Continue doing this until 24 hours after your pain stops. By then, if there was a kidney stone, it should pass from your bladder. Some stones dissolve into sand-like particles and pass right through the strainer. In that case, you won t ever see a stone. Save any stone that you find in the strainer and bring it to your healthcare provider to look at. It may be possible to stop certain types of stones from forming. For this reason, it is important to know what kind of stone you have. Try to stay as active as possible. This will help the stone pass. Don't stay in bed unless your pain keeps you from getting up. You may notice a red, pink, or brown color to your urine. This is normal while passing a kidney stone. If you develop pain, you may take ibuprofen or naproxen for pain, unless another medicine was prescribed. If you have chronic liver or kidney disease, talk with your healthcare provider before taking these medicines. Also talk with your provider if you've had a stomach ulcer or GI bleeding. Preventing stones Each year for the next 5 to 7 years, you are at risk that a new stone will form. Your risk is a 50% chance over this time period. The risk is higher if you have a family history of kidney stones or have certain chronic illnesses like hypertension, obesity, or diabetes. But you can make changes to your lifestyle and diet that can lower your risk for another stone. Most kidney stones are made of calcium. The following is advice for preventing another calcium stone. If you don t know the type of stone you have, follow this advice until the cause of your stone is found. Things that help: The most important thing you can do is to drink plenty of fluids each day. See home care above. Eat foods that contain phytates. These include wheat, rice, rye, barley, and beans. Phytates are substances that may lower your risk for any type of stone to form. Eat more fruits and vegetables. Choose those that are high in potassium. Eat foods high in natural citrate like fruit and low-sugar fruit juices. Having too little calcium in your diet can put you at risk for calcium kidney stones. Eat a normal amount of calcium in your diet and talk with your healthcare provider if you are taking calcium supplements. Cutting back on your calcium intake may raise your risk. New research shows that eating calcium-rich and oxalate-rich foods together lowers your risk for stones by binding the minerals in the stomach and intestines before they can reach the kidneys. Limit salt intake to 2 grams (1 teaspoon) per day. Use limited amounts when cooking, and don t add salt at the table. Processed and canned foods are usually high in salt. Spinach, rhubarb, peanuts, cashews, almonds, grapefruit, and grapefruit juice are all high oxalate foods. You should limit how much of these you eat. Or eat them with calcium-rich foods. These include dairy products, dark leafy greens, soy products, and calcium-enriched foods. Reducing the amount of animal meat and high protein foods in your diet may lower your risk for uric acid stones. Avoid excess sugar (sucrose) and fructose (sweetener in many soft drinks) in your diet. If you take vitamin C as a supplement, don't take more than 1,000 mg a day. A dietitian or your healthcare provider can give you information about changes in your diet that will help prevent more kidney stones from forming. Follow-up care Follow up with your healthcare provider, or as advised, if the pain lasts more than 48 hours. Talk with your provider about urine and blood tests to find out the cause of your stone. If you had an X-ray, CT scan, or other diagnostic test, you will be told of any new findings that may affect your care. Call 911 Call 911 if you have any of these: Weakness, dizziness, or fainting When to seek medical advice Call your healthcare provider right away if any of these occur: Pain that is not controlled by the medicine given Repeated vomiting or unable to keep down fluids Fever of 100.4 F (38 C) or higher, or as directed by your healthcare provider Passage of solid red or brown urine (can't see through it) or urine with lots of blood clots Foul-smelling or cloudy urine Unable to pass urine for 8 hours and increasing bladder pressure [id number] [employer]. [address] [place] [address]. All rights reserved. This information is not intended as a substitute for professional medical care. Always follow your healthcare professional's instructions. Follow Up Care 07/08/2021 10:13:24 With:ÁNGEL HENDRICKSON MD Address: When:2-4 days [facility] Evaluation + Plan note Future Appointments Appointment Date:04/29/2021 11:30:00 AM Scheduled Provider:FOREIGN RICO DO Location:[facility] Appointment Type:PC OV Future Scheduled TestsXR Chest 2 Views (PA & Lateral) 09/21/20 [facility] Evaluation + Plan note Future Appointments Appointment Date:04/28/2021 10:30:00 AM Scheduled Provider:FOREIGN RICO DO Location:[facility] Appointment Type:PC OV Appointment Date:06/28/2021 10:30:00 AM Scheduled Provider:FOREIGN RICO DO Location:[facility] Appointment Type:PC OV Future Scheduled TestsCreatinine Random Urine 03/24/21XR Chest 2 Views (PA & Lateral) 09/21/20 [facility] Evaluation + Plan note Future Appointments Appointment Date:06/28/2021 10:30:00 AM Scheduled Provider:FOREIGN RICO DO Location:[facility] Appointment Type:PC OV Appointment Date:07/26/2021 11:00:00 AM Scheduled Provider:FOREIGN RICO DO Location:[facility] Appointment Type:PC OV Future Scheduled TestsCreatinine Random Urine 03/24/21XR Chest 2 Views (PA & Lateral) 09/21/20 [facility] Evaluation + Plan note Future Appointments Appointment Date:07/26/2021 11:00:00 AM Scheduled Provider:FOREIGN RICO DO Location:[facility] Appointment Type:PC OV Future Scheduled TestsCreatinine Random Urine 03/24/21XR Chest 2 Views (PA & Lateral) 09/21/20 [facility] Evaluation + Plan note Future Appointments Appointment Date:07/18/2021 11:00:00 AM Scheduled Provider: Location:[facility] Appointment Type:DB Diabetic Individual Visit Appointment Date:07/19/2021 02:30:00 PM Scheduled Provider: Location:[facility] Appointment Type:NUT Diet Visit Individual Appointment Date:07/26/2021 11:00:00 AM Scheduled Provider:FOREIGN RICO DO Location:[facility] Appointment Type:PC OV Future Scheduled TestsCreatinine Random Urine 03/24/21XR Chest 2 Views (PA & Lateral) 07/05/21XR Chest 2 Views (PA & Lateral) 09/21/20 [facility] Evaluation + Plan note Future Appointments Appointment Date:07/26/2021 11:00:00 AM Scheduled Provider:FOREIGN RICO DO Location:[facility] Appointment Type:PC OV Appointment Date:08/22/2021 11:30:00 AM Scheduled Provider: Location:[facility] Appointment Type:NUT Diet Visit Individual Appointment Date:01/23/2022 11:00:00 AM Scheduled Provider: Location:[facility] Appointment Type:DB Diabetic Individual Visit Future Scheduled TestsCreatinine Random Urine 03/24/21XR Chest 2 Views (PA & Lateral) 2//22XR Chest 2 Views (PA & Lateral) 09/21/20 [facility] Evaluation + Plan note Future Appointments Appointment Date:08/22/2021 11:30:00 AM Scheduled Provider: Location:[facility] Appointment Type:NUT Diet Visit Individual Appointment Date:11/01/2021 10:00:00 AM Scheduled Provider:FOREIGN RICO DO Location:[facility] Appointment Type:PC Wellness Medicare Appointment Date:01/23/2022 11:00:00 AM Scheduled Provider: Location:[facility] Appointment Type:DB Diabetic Individual Visit Future Scheduled TestsCreatinine Random Urine 03/24/21XR Chest 2 Views (PA & Lateral) 2/22XR Chest 2 Views (PA & Lateral) 09/21/20 [facility] Evaluation + Plan note Future Appointments Appointment Date:09/26/2021 11:30:00 AM Scheduled Provider: Location:[facility] Appointment Type:NUT Diet Visit Individual Appointment Date:11/01/2021 10:00:00 AM Scheduled Provider:FOREIGN RICO DO Location:[facility] Appointment Type:PC Wellness Medicare Appointment Date:01/23/2022 11:00:00 AM Scheduled Provider: Location:[facility] Appointment Type:DB Diabetic Individual Visit Future Scheduled TestsCreatinine Random Urine 03/24/21XR Chest 2 Views (PA & Lateral) 2//22XR Chest 2 Views (PA & Lateral) 09/21/20 [facility] Evaluation + Plan note Future Appointments Appointment Date:11/01/2021 10:00:00 AM Scheduled Provider:FOREIGN RICO DO Location:[facility] Appointment Type:PC Wellness Medicare Appointment Date:01/23/2022 11:00:00 AM Scheduled Provider: Location:[facility] Appointment Type:DB Diabetic Individual Visit Future Scheduled TestsCreatinine Random Urine 03/24/21XR Chest 2 Views (PA & Lateral) 07/05/21 [facility] Evaluation + Plan note Future Appointments Appointment Date:11/11/2021 10:00:00 AM Scheduled Provider: Location:[facility] Appointment Type:PT Outpatient Evaluation Appointment Date:12/16/2021 10:00:00 AM Scheduled Provider:FOREIGN RICO DO Location:[facility] Appointment Type:PC OV Appointment Date:01/23/2022 11:00:00 AM Scheduled Provider: Location:[facility] Appointment Type:DB Diabetic Individual Visit Future Scheduled TestsCreatinine Random Urine 03/24/21Lipid Profile 6/22Vitamin D Level 621/22MA Mammo Screening Bilateral w/ Nahid 11/01/21XR Chest 2 Views (PA & Lateral) 07/05/21 [facility] Evaluation + Plan note Future Appointments Appointment Date:11/11/2021 10:00:00 AM Scheduled Provider: Location:[facility] Appointment Type:PT Outpatient Evaluation Appointment Date:11/25/2021 10:30:00 AM Scheduled Provider: Location:[facility] Appointment Type:MA Mammogram Screening Bilateral w/ Nahid Appointment Date:12/16/2021 10:00:00 AM Scheduled Provider:FOREIGN RICO DO Location:[facility] [facility] Appointment Type:PC OV Appointment Date:01/23/2022 11:00:00 AM Scheduled Provider: [facility] Appointment Type:DB Diabetic Individual Visit Future Scheduled TestsCreatinine Random Urine 03/24/21Lipid Profile 6/22Vitamin D Level 6/21/22MA Mammo Screening Bilateral w/ Nahid 11/25/XR Chest 2 Views (PA & Lateral) 07/05/21 [facility] Evaluation + Plan note Future Appointments Appointment Date:11/28/2021 10:00:00 AM Scheduled Provider: Location:[facility] Appointment Type:PT Treatment - [place] Appointment Date:12/01/2021 10:00:00 AM Scheduled Provider: Location:[facility] Appointment Type:PT Treatment - [place] Appointment Date:12/06/2021 10:00:00 AM Scheduled Provider: Location:[facility] Appointment Type:PT Treatment - [place] Appointment Date:12/09/2021 10:00:00 AM Scheduled Provider: Location:[facility] Appointment Type:PT Treatment - [place] Appointment Date:12/12/2021 10:00:00 AM Scheduled Provider: Location:[facility] Appointment Type:PT Treatment - [place] Appointment Date:12/16/2021 10:00:00 AM Scheduled Provider:FOREIGN RICO DO Location:[facility] Appointment Type:PC OV Appointment Date:01/23/2022 11:00:00 AM Scheduled Provider: [facility] Appointment Type:DB Diabetic Individual Visit Future Scheduled TestsCreatinine Random Urine 03/24/21Lipid Profile 11/01/21Vitamin D Level 11/01/21XR Chest 2 Views (PA & Lateral) 07/05/21 [facility] Evaluation + Plan note Future Appointments Appointment Date:12/06/2021 10:00:00 AM Scheduled Provider: Location:[facility] Appointment Type:PT Treatment - [place] Appointment Date:12/09/2021 10:00:00 AM Scheduled Provider: Location:[facility] Appointment Type:PT Treatment - [place] Appointment Date:12/12/2021 10:00:00 AM Scheduled Provider: Location:[facility] Appointment Type:PT Treatment - [place] Appointment Date:12/16/2021 10:00:00 AM Scheduled Provider:FOREIGN RICO DO Location:[facility] Appointment Type:PC OV Appointment Date:01/23/2022 11:00:00 AM Scheduled Provider: Location:[facility] Appointment Type:DB Diabetic Individual Visit Future Scheduled TestsCreatinine Random Urine 03/24/21Lipid Profile 11/01/21Vitamin D Level 11/01/21 [facility] Evaluation + Plan note Future Appointments Appointment Date:12/07/2021 01:30:00 PM Scheduled Provider: Location:[facility] Appointment Type:PT Treatment - [place] Appointment Date:12/09/2021 10:00:00 AM Scheduled Provider: Location:[facility] Appointment Type:PT Treatment - [place] Appointment Date:12/12/2021 10:00:00 AM Scheduled Provider: Location:[facility] Appointment Type:PT Treatment - [place] Appointment Date:12/16/2021 10:00:00 AM Scheduled Provider:FOREIGN RICO DO Location:[facility] Appointment Type:PC OV Appointment Date:01/23/2022 11:00:00 AM Scheduled Provider: Location:[facility] Appointment Type:DB Diabetic Individual Visit Future Scheduled TestsCreatinine Random Urine 03/24/21Lipid Profile 11/01/21Vitamin D Level 11/01/21 [facility] Evaluation + Plan note Future Appointments Appointment Date:12/16/2021 10:00:00 AM Scheduled Provider:FOREIGN RICO DO Location:[facility] Appointment Type:PC OV Appointment Date:01/23/2022 11:00:00 AM Scheduled Provider: Location:[facility] Appointment Type:DB Diabetic Individual Visit Future Scheduled TestsCreatinine Random Urine 03/24/21 [facility] Evaluation + Plan note Future Appointments Appointment Date:03/20/2022 01:00:00 PM Scheduled Provider: Location:[facility] Appointment Type:BD Bone Density DEXA Axial Skeleton Appointment Date:03/20/2022 01:30:00 PM Scheduled Provider: Location:[facility] Appointment Type:US Soft Tissue Mass of Abd/Mid Back Appointment Date:06/01/2022 10:00:00 AM Scheduled Provider:FOREIGN RICO DO Location:[facility] Appointment Type:PC OV Follow Up Appointment Date:07/24/2022 10:00:00 AM Scheduled Provider: Location:[facility] Appointment Type:DB Diabetic Individual Visit Future Scheduled TestsCreatinine Random Urine 03/24/21US Soft Tissue Mass of Abd/Mid Back 03/20/22BD Bone Density DEXA Axial Skeleton 03/20/22 [facility] Evaluation + Plan note Future Appointments Appointment Date:06/01/2022 10:00:00 AM Scheduled Provider:FOREIGN RICO DO Location:[facility] Appointment Type:PC OV Follow Up Appointment Date:07/24/2022 10:00:00 AM Scheduled Provider: Location:[facility] Appointment Type:DB Diabetic Individual Visit Future Scheduled TestsCreatinine Random Urine 03/24/21 [facility] Evaluation + Plan note Future Appointments Appointment Date:06/01/2022 10:00:00 AM Scheduled Provider:FOREIGN RICO DO Location:[facility] Appointment Type:PC OV Follow Up Appointment Date:07/24/2022 10:00:00 AM Scheduled Provider: Location:[facility] Appointment Type:DB Diabetic Individual Visit [facility] Evaluation + Plan note Future Appointments Appointment Date:06/08/2022 09:00:00 AM Scheduled Provider: Location:[facility] Appointment Type:MA Mammogram Diagnostic Right w/ Nahid Appointment Date:06/08/2022 10:00:00 AM Scheduled Provider: Location:[facility] Appointment Type:US Breast Right Complete Appointment Date:07/24/2022 10:00:00 AM Scheduled Provider: Location:[facility] Appointment Type:DB Diabetic Individual Visit Appointment Date:08/31/2022 10:00:00 AM Scheduled Provider:FOREIGN RICO DO Location:[facility] Appointment Type:PC OV Future Scheduled TestsMA Mammo Diagnostic Right w/ Nahid 06/08/22US Breast Right Complete 06/08/22 [facility] Evaluation + Plan note Future Appointments Appointment Date:07/24/2022 10:00:00 AM Scheduled Provider: Location:[facility] Appointment Type:DB Diabetic Individual Visit Appointment Date:08/31/2022 10:00:00 AM Scheduled Provider:FOREIGN RICO DO Location:[facility] Appointment Type:PC OV [facility] Evaluation + Plan note Future Appointments Appointment Date:08/31/2022 10:00:00 AM Scheduled Provider:FOREIGN RICO DO Location:[facility] Appointment Type:[facility] Evaluation + Plan note Future Appointments Appointment Date:08/31/2022 10:30:00 AM Scheduled Provider:FOREIGN RICO DO Location:[facility] Appointment Type:[facility] Evaluation + Plan note Future Appointments Appointment Date:09/19/2022 10:00:00 AM Scheduled Provider:CHARLOTTE RIGGS MD Location:[facility] Appointment Type:[facility] [employer] Appointment Date:12/08/2022 10:00:00 AM Scheduled Provider:FOREIGN RICO DO Location:[facility] Appointment Type:[facility] Evaluation + Plan note Future Appointments Appointment Date:12/28/2022 09:00:00 AM Scheduled Provider: Location:[facility] Appointment Type:NUT Diet Visit Individual Appointment Date:03/01/2023 10:00:00 AM Scheduled Provider: Location:[facility] Appointment Type:DB Diabetic Individual Visit (AOH) Appointment Date:03/16/2023 09:00:00 AM Scheduled Provider:FOREIGN RICO DO Location:[facility] Appointment Type: Wellness Medicare Future Scheduled TestsThyroid Stimulating Hormone 01/22/23Free T4 01/22/23MA Mammo Screening Bilateral w/ Nahid 12/08/22 [facility] Evaluation + Plan note Future Appointments Appointment Date:01/01/2023 09:45:00 AM Scheduled Provider: Location:[facility] Appointment Type:MA Mammogram Screening Bilateral w/ Nahid Appointment Date:03/01/2023 10:00:00 AM Scheduled Provider: Location:[facility] Appointment Type:DB Diabetic Individual Visit (AOH) Appointment Date:03/16/2023 09:00:00 AM Scheduled Provider:FOREIGN RICO DO Location:[facility] Appointment Type: Wellness Medicare Future Scheduled TestsThyroid Stimulating Hormone 01/22/23Free T4 01/22/23MA Mammo Screening Bilateral w/ Nahid 01/01/23 [facility] Evaluation + Plan note Future Appointments Appointment Date:01/25/2023 09:00:00 AM Scheduled Provider: Location:[facility] Appointment Type:NUT Diet Visit Individual Appointment Date:03/01/2023 10:00:00 AM Scheduled Provider: Location:[facility] Appointment Type:DB Diabetic Individual Visit (AOH) Appointment Date:03/16/2023 09:00:00 AM Scheduled Provider:FOREIGN RICO DO Location:[facility] Appointment Type: Wellness Medicare Future Scheduled TestsThyroid Stimulating Hormone 01/22/23Free T4 01/22/23 [facility] Evaluation + Plan note Future Appointments Appointment Date:01/31/2023 10:00:00 AM Scheduled Provider: Location:[facility] Appointment Type:PT Outpatient Evaluation Appointment Date:02/23/2023 09:00:00 AM Scheduled Provider: Location:[facility] Appointment Type:NUT Diet Visit Individual Appointment Date:03/01/2023 10:00:00 AM Scheduled Provider: Location:[facility] Appointment Type:DB Diabetic Individual Visit (AOH) Appointment Date:03/16/2023 09:00:00 AM Scheduled Provider:FOREIGN RICO DO Location:[facility] Appointment Type:PC Wellness Medicare Future Scheduled TestsThyroid Stimulating Hormone 01/22/23Free T4 01/22/23 [facility] Evaluation + Plan note Future Appointments Appointment Date:03/02/2023 08:30:00 AM Scheduled Provider: Location:[facility] Appointment Type:DB Diabetic Individual Visit (AOH) Appointment Date:03/09/2023 08:00:00 AM Scheduled Provider: Location:[facility] Appointment Type:NUT Diet Visit Individual Appointment Date:03/13/2023 02:00:00 PM Scheduled Provider:LUPIS FERGUSON MD Location:[facility] Appointment Type:ENDO [employer]ETING SPECIALIST Appointment Date:03/16/2023 09:00:00 AM Scheduled Provider:FOREIGN RICO DO Location:[facility] Appointment Type:PC Wellness Medicare Future Scheduled TestsThyroid Stimulating Hormone 01/22/23Free T4 01/22/23 [facility] Evaluation + Plan note Future Appointments Appointment Date:03/30/2023 09:00:00 AM Scheduled Provider: Location:[facility] Appointment Type:NUT Diet Visit Individual Appointment Date:04/04/2023 02:00:00 PM Scheduled Provider:FOREIGN RICO DO Location:[facility] Appointment Type: Wellness Medicare Appointment Date:04/11/2023 01:30:00 PM Scheduled Provider:LUPIS FERGUSON MD Location:[facility] Appointment Type:ENDO OV Appointment Date:06/01/2023 08:30:00 AM Scheduled Provider: Location:[facility] Appointment Type:DB Diabetic Individual Visit (AOH) Diagnostic Tests PendingThyroid Stimulating Immunoglobulin 03/14/23 Future Scheduled TestsThyroid Stimulating Hormone 01/22/23Free T4 01/22/23 [facility] Evaluation + Plan note Future Appointments Appointment Date:04/04/2023 02:00:00 PM Scheduled Provider:FOREIGN RICO DO Location:[facility] Appointment Type: Wellness Medicare Appointment Date:04/11/2023 01:30:00 PM Scheduled Provider:LUPIS FERGUSON MD Location:[facility] Appointment Type:ENDO OV Appointment Date:06/01/2023 08:30:00 AM Scheduled Provider: Location:[facility] Appointment Type:DB Diabetic Individual Visit (AOH) Future Scheduled TestsThyroid Stimulating Hormone 01/22/23Free T4 01/22/23 [facility] Evaluation + Plan note Future Appointments Appointment Date:07/12/2023 10:15:00 AM Scheduled Provider:LUPIS FERGUSON MD Location:[facility] Appointment Type:ENDO OV Appointment Date:08/03/2023 10:00:00 AM Scheduled Provider:FOREIGN RICO DO Location:[facility] Appointment Type:PC OV Future Scheduled TestsPhosphorus Level 04/04/23Thyroid Stimulating Hormone 07/12/23Free T4 07/12/23A1C Hemoglobin 07/12/23Complete Blood Count 04/04/23Free T3 07/12/23Lipid Profile 04/04/Lipid Profile 07/12/23PTH, Intact 04/04/23Vitamin D Level 07/12/23Complete Metabolic Panel 04/04/23Complete Metabolic Panel 07/12/23 [facility] Evaluation + Plan note Future Appointments Appointment Date:07/12/2023 10:15:00 AM Scheduled Provider:LUPIS FERGUSON MD Location:[facility] Appointment Type:ENDO OV Appointment Date:07/20/2023 09:30:00 AM Scheduled Provider: Location:[facility] Appointment Type:NUT Diet Visit Individual Appointment Date:08/03/2023 10:00:00 AM Scheduled Provider:FOREIGN RICO DO Location:[facility] Appointment Type:PC OV Future Scheduled TestsPhosphorus Level 04/04/23Thyroid Stimulating Hormone 07/12/23Free T4 07/12/23A1C Hemoglobin 07/12/23Complete Blood Count 04/04/23Free T3 07/12/23Lipid Profile 04/04/Lipid Profile 07/12/23PTH, Intact 04/04/23Vitamin D Level 07/12/23Complete Metabolic Panel 04/04/23Complete Metabolic Panel 07/12/23 [facility] Evaluation + Plan note Future Appointments Appointment Date:07/12/2023 10:15:00 AM Scheduled Provider:LUPIS FERGUSON MD Location:[facility] Appointment Type:ENDO OV Appointment Date:07/20/2023 09:30:00 AM Scheduled Provider: Location:[facility] Appointment Type:NUT Diet Visit Individual Appointment Date:08/03/2023 10:00:00 AM Scheduled Provider:FOREIGN RICO DO Location:[facility] Appointment Type:PC OV Future Scheduled TestsPhosphorus Level 04/04/23Complete Blood Count 04/04/23Lipid Profile 04/04/23PTH, Intact 04/04/Complete Metabolic Panel 04/04/23 [facility] History of Present illness Narrative c/o tired/ aches a lot (hands)is tired.. has DEUCE. on cpap. may have pulm htn . ..may be getting a right hear t cath.neck okno cough or fvermay oxygen at [facility] price. [facility] Work Phone: History of Present illness Narrative c/o tired/ aches a lot (hands)is tired.. has DEUCE. on cpap. may have pulm htn . ..may be getting a right hear t cath.neck okno cough or fvermay need oxygen at [facility] is at [place]//dx d pt. c [facility] [address] price. [facility] Work Phone: History of Present illness Narrative kidney stones a bernadine jiménez . stones again a few months laterwooster dr laguna scope. .. kavya forest all clear dr luz louskelly OA of shouldersand rot cuffpcp foreign romakanksha in [facility] Work Phone: History of Present illness Narrative hx had kidney stones a bernadine jiménez . stones again a few months laterwooster dr lee is bernadine villar scope. .. kavya d all clear dr lee no more stonesfeels lousyhas OA of shouldersand rot cuff painspcp foreign romar in [facility] 200 level..i told pt she needs to follow up c pcp on that issuepulm in [facility] stone prevention measures discussed..i explained often times no clear trigger for stones in a pt is foundshe feels she can incr water intakdesh doesn t know what type of stone she has [facility] Work Phone: History of Present illness Narrative Patient seen for a new problem right shoulder. She is getting pain, pain with lifting and crepitus. This is all on the left shoulder. Also patient had right hip x-rays. 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 Her pain pattern around her hip, buttock, and low back appears to be more back in origin. It is over the lumbosacral spine high area right hip. She just had a fluoro-guided injection and pain management in her back. She has a little bit of thigh pain, but no much. No pain when she walks. No pain when she stands. [facility] [place]: History of Present illness Narrative Patient seen for a new problem right shoulder. She is getting pain, pain with lifting and crepitus. This is all on the left shoulder. Also patient had right hip x-rays. 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 Her pain pattern around her hip, buttock, and low back appears to be more back in origin. It is over the lumbosacral spine high area right hip. She just had a fluoro-guided injection and pain management in her back. She has a little bit of thigh pain, but no much. No pain when she walks. No pain when she stands. [facility] [place]: History of Present illness Narrative Left shoulder fluoro-guided injection. She is 98% better in her own words. She does have to be careful with certain things. When she abducts, certain driving maneuvers lifting cause pain in the shoulder. [facility] Work Phone: Hospital course Narrative No data available for this section [facility] Discharge instructions No data available for this section [facility] Note Paulie Flood: PERFORM Event Display: Pain Management Treatment Agreement Authored Date: [id number] [facility] Progress note No data available for this section [facility] Summary Purpose Family History No Family History Records Found Mother Name Dates Details Family history of Mother Dec eased At Age ___ Status:Active Family history of Biliary li tamera cirrhosis(571.6, K74.5) Status:Active Family history of diabetes m ellitus(V18.0, Z83.3) Status:Active Father Name Dates Details Family history of Father Dec eased At Age ___ Status:Active Family history of cardiac ar rest(V17.49, Z82.49) Status:Active Mother Name Dates Details Family history of Mother Dec eased At Age ___ Status:Active Family history of Biliary li tamera cirrhosis(571.6, K74.5) Status:Active Family history of diabetes m ellitus(V18.0, Z83.3) Status:Active Father Name Dates Details Family history of Father Dec eased At Age ___ Status:Active Family history of cardiac ar rest(V17.49, Z82.49) Status:Active Unknown Family Member Name Dates Details Father At Age 42 : Father Comments:father from [place] ; Status:Active Mother At Age 67 : Mother Comments:mother from [place] ; Status:Active Family history of cardiac ar rest: Father(V17.49, Z82.49) Status:Active Biliary liver cirrhosis: Mot her Status:Active Family history of diabetes m ellitus: Mother(V18.0, Z83.3) Status:Active Unknown Family Member Name Dates Details Father At Age 42 : Father Comments:father from [place] ; Status:Active Mother At Age 67 : Mother Comments:mother from [place] ; Status:Active Family history of cardiac ar rest: Father(V17.49, Z82.49) Status:Active Biliary liver cirrhosis: Mot her Status:Active Family history of diabetes m ellitus: Mother(V18.0, Z83.3) Status:Active Unknown Family Member Name Dates Details Father At Age 42 : Father Comments:father from [place] ; Status:Active Mother At Age 67 : Mother Comments:mother from [place] ; Status:Active Family history of cardiac ar rest: Father(V17.49, Z82.49) Status:Active Biliary liver cirrhosis: Mot her Status:Active Family history of diabetes m ellitus: Mother(V18.0, Z83.3) Status:Active Unknown Family Member Name Dates Details Father At Age 42 : Father Comments:father from [place] ; Status:Active Mother At Age 67 : Mother Comments:mother from [place] ; Status:Active Family history of cardiac ar rest: Father(V17.49, Z82.49) Status:Active Biliary liver cirrhosis: Mot her Status:Active Family history of diabetes m ellitus: Mother(V18.0, Z83.3) Status:Active Unknown Family Member Name Dates Details Father At Age 42 : Father Comments:father from [place] ; Status:Active Mother At Age 67 : Mother Comments:mother from [place] ; Status:Active Family history of cardiac ar rest: Father(V17.49, Z82.49) Status:Active Biliary liver cirrhosis: Mot her Status:Active Family history of diabetes m ellitus: Mother(V18.0, Z83.3) Status:Active Unknown Family Member Name Dates Details Father At Age 42 : Father Comments:father from [place] ; Status:Active Mother At Age 67 : Mother Comments:mother from [place] ; Status:Active Family history of cardiac ar rest: Father(V17.49, Z82.49) Status:Active Biliary liver cirrhosis: Mot her Status:Active Family history of diabetes m ellitus: Mother(V18.0, Z83.3) Status:Active Unknown Family Member Name Dates Details Family history of diabetes m ellitus: Mother(V18.0, Z83.3) Status:Active Biliary liver cirrhosis: Mot her Status:Active Family history of cardiac ar rest: Father(V17.49, Z82.49) Status:Active Mother At Age 67 : Mother Comments:mother from [place] ; Status:Active Father At Age 42 : Father Comments:father from [place] ; Status:Active Unknown Family Member Name Dates Details Father At Age 42 : Father Comments:father from [place] ; Status:Active Mother At Age 67 : Mother Comments:mother from [place] ; Status:Active Family history of cardiac ar rest: Father(V17.49, Z82.49) Status:Active Biliary liver cirrhosis: Mot her Status:Active Family history of diabetes m ellitus: Mother(V18.0, Z83.3) Status:Active Unknown Family Member Name Dates Details Father At Age 42 : Father Comments:father from [place] ; Status:Active Mother At Age 67 : Mother Comments:mother from [place] ; Status:Active Family history of diabetes m ellitus: Mother(V18.0, Z83.3) Status:Active Biliary liver cirrhosis: Mot her Status:Active Family history of cardiac ar rest: Father(V17.49, Z82.49) Status:Active Unknown Family Member Name Dates Details Father At Age 42 : Father Comments:father from [place] ; Status:Active Mother At Age 67 : Mother Comments:mother from [place] ; Status:Active Family history of cardiac ar rest: Father(V17.49, Z82.49) Status:Active Biliary liver cirrhosis: Mot her Status:Active Family history of diabetes m ellitus: Mother(V18.0, Z83.3) Status:Active Unknown Family Member Name Dates Details Father At Age 42 : Father Comments:father from [place] ; Status:Active Mother At Age 67 : Mother Comments:mother from [place] ; Status:Active Family history of diabetes m ellitus: Mother(V18.0, Z83.3) Status:Active Biliary liver cirrhosis: Mot her Status:Active Family history of cardiac ar rest: Father(V17.49, Z82.49) Status:Active Unknown Family Member Name Dates Details Father At Age 42 : Father Comments:father from [place] ; Status:Active Mother At Age 67 : Mother Comments:mother from [place] ; Status:Active Family history of cardiac ar rest: Father(V17.49, Z82.49) Status:Active Biliary liver cirrhosis: Mot her Status:Active Family history of diabetes m ellitus: Mother(V18.0, Z83.3) Status:Active Unknown Family Member Name Dates Details Father At Age 42 : Father Comments:father from [place] ; Status:Active Mother At Age 67 : Mother Comments:mother from [place] ; Status:Active Family history of cardiac ar rest: Father(V17.49, Z82.49) Status:Active Biliary liver cirrhosis: Mot her Status:Active Family history of diabetes m ellitus: Mother(V18.0, Z83.3) Status:Active Unknown Family Member Name Dates Details Family history of diabetes m ellitus: Mother(V18.0, Z83.3) Status:Active Biliary liver cirrhosis: Mot her Status:Active Family history of cardiac ar rest: Father(V17.49, Z82.49) Status:Active Mother At Age 67 : Mother Comments:mother from [place] ; Status:Active Father At Age 42 : Father Comments:father from [place] ; Status:Active Unknown Family Member Name Dates Details Father At Age 42 : Father Comments:father from [place] ; Status:Active Mother At Age 67 : Mother Comments:mother from [place] ; Status:Active Family history of cardiac ar rest: Father(V17.49, Z82.49) Status:Active Biliary liver cirrhosis: Mot her Status:Active Family history of diabetes m ellitus: Mother(V18.0, Z83.3) Status:Active Advance Directives No Advanced Directives Records FoundNo Advanced Directives Records FoundNo Advanced Directives Records FoundNo Advanced Directives Records FoundNo Advanced Directives Records FoundNo Advanced Directives Records FoundNo Advanced Directives Records FoundNo Advanced Directives Records FoundNo Advanced Directives Records Found Chief Complaint here for thyroid followuphere for thyroid followupfollow up hypothyroidRt hip and Rt shoulder pain xrays todayRt hip and Rt shoulder pain xrays todayRt hip and Rt shoulder pain xrays todayDM concernsDM concerns//referred by pcpf/u left shoulder pain s/p FLuoro injectionf/u left shoulder pain s/p FLuoro injection Additional Source Comments INFORMATION SOURCE (unrecogn ized section and content) DATE CREATED AUTHOR AUTHOR'S ORGANIZ ATION 11/25/2018 [facility] DATE CREATED AUTHOR AUTHOR'S ORGANIZ ATION 02/15/2019 [facility] DATE CREATED AUTHOR AUTHOR'S ORGANIZ ATION 12/07/2019 [facility] [place] DATE CREATED AUTHOR AUTHOR'S ORGANIZ ATION 07/08/2022 [facility] DATE CREATED AUTHOR AUTHOR'S ORGANIZ ATION 07/14/2022 [employer] DATE CREATED AUTHOR AUTHOR'S ORGANIZ ATION 07/23/2022 [facility] DATE CREATED AUTHOR AUTHOR'S ORGANIZ ATION 07/03/2023 [facility] ([place]) DATE CREATED AUTHOR AUTHOR'S ORGANIZ ATION 07/20/2023 [facility] Care Team (unrecognized sect ion and content) Personnel Name: FOREIGN RICO DO Address: [address] [place] [address] [facility] [place], [place] [address] Name: Pamella Steen PT Personnel Name: FOREIGN RICO DO Address: [address] [place] [address]- Name: Enio Cyber Special Agent Stella PT Care Team Personnel Name: Enio Cyber Special Agent Stella PT Position: P3 Scheduling - Kickboxing Instructor Advanced Member Role: Other Name: FOREIGN RICO DO Position: P4 Physician - Primary Care Member Role: Primary Care Physician Address: Address: [address] [place] [address] Name: MAXIMILIANO PAREDES MD Position: Physician Member Role: Public Health Dentist Address: Address: [address] [place] [address] [place] [address]- Name: MD ANSHU DAMON Member Role: Ux Design Lead Address: Address: [address] [place], [place] [id number]- Name: BHAVNA BELTRAN MD Position: P4 Physician - General Surgery Member Role: Pain Management Address: Address: [address] [facility] [place] [place] [address]- Care Team Related Persons Name: ANANYA BAILEY Care Team Personnel Name: Pamella Steen Clerk Stella PT Position: P3 Scheduling - Kickboxing Instructor Advanced Member Role: Other Name: FOREIGN RICO DO Position: P4 Physician - Primary Care Member Role: Primary Care Physician Address: Address: [address] [place] [address] Name: MAXIMILIANO PAREDES MD Position: Physician Member Role: Public Health Dentist Address: Address: [address] [place] [address] [place] [address]- Name: MD ANSHU DAMON Member Role: Ux Design Lead Address: Address: [address] [place], [place] [id number]- [place] Name: BHAVNA BELTRAN MD Position: P4 Physician - General Surgery Member Role: Pain Management Address: Address: [address] [facility] [place] [address]- Care Team Related Persons Name: ANANYA BAILEY Care Team Personnel Name: Enio Cyber Special Agent Stella PT Position: P3 Scheduling - Kickboxing Instructor Advanced Member Role: Other Name: FOREIGN RICO DO Position: P4 Physician - Primary Care Member Role: Primary Care Physician Address: Address: [address] [place] [address]- Name: MAXIMILIANO PAREDES MD Position: Physician Member Role: Public Health Dentist Address: Address: [address] [facility] [place] [place] [address]- Name: MD ANSHU DAMON Member Role: Ux Design Lead Address: Address: [address] [place], [place] [id number]- [place] Name: BHAVNA BELTRAN MD Position: P4 Physician - General Surgery Member Role: Pain Management Address: Address: [address] [facility] [place] [address]- [place] Care Team Related Persons Name: ANANYA BAILEY Care Team Personnel Name: Pamella Steen Clerk Stella PT Position: P3 Scheduling - Kickboxing Instructor Advanced Member Role: Other Name: FOREIGN RICO DO Position: P4 Physician - Primary Care Member Role: Primary Care Physician Address: Address: [address] [place] [address]- Name: MAXIMILIANO PAREDES MD Position: Physician Member Role: Public Health Dentist Address: Address: [address] [facility] [place] [place] [address]- [place] Name: MD ANSHU DAMON Member Role: Ux Design Lead Address: Address: [address] [place], [place] [id number]- Name: BHAVNA BELTRAN MD Position: P4 Physician - General Surgery Member Role: Pain Management Address: Address: [address] [facility] [place] [address]- Care Team Related Persons Name: ANANYA BAILEY Care Team Personnel Name: Pamella Steen Clerk Stella PT Position: P3 Scheduling - Kickboxing Instructor Advanced Member Role: Other Name: FOREIGN RICO DO Position: P4 Physician - Primary Care Member Role: Primary Care Physician Address: Address: [address] [place] [address]- Name: MAXIMILIANO PAREDES MD Position: Physician Member Role: Public Health Dentist Address: Address: [address] [facility] [place] [place] [address]- [place] Name: MD ANSHU DAMON Member Role: Ux Design Lead Address: Address: [address] [address]- [place] Name: BHAVNA BELTRAN MD Position: P4 Physician - General Surgery Member Role: Pain Management Address: Address: [address] [facility] [place] [address]- [place] Care Team Related Persons Name: ANANYA BAILEY Care Team Personnel Name: Pamella Steen Clerk Stella PT Position: P3 Scheduling - Kickboxing Instructor Advanced Member Role: Other Name: FOREIGN RICO DO Position: P4 Physician - Primary Care Member Role: Primary Care Physician Address: Address: [address] [place] [address]- Name: MAXIMILIANO PAREDES MD Position: Physician Member Role: Public Health Dentist Address: Address: [facility] [address] [facility] [place] [place] [address]- Name: MD ANSHU DAMON Member Role: Ux Design Lead Address: Address: [address] [place], [place] [id number]- [place] Name: BHAVNA BELTRAN MD Position: P4 Physician - General Surgery Member Role: Pain Management Address: Address: [address] [facility] [place] [address]- [place] Care Team Related Persons Name: ANANYA BAILEY Care Team Personnel Name: Pamella Steenrscottie Douglas PT Position: P3 Scheduling - Kickboxing Instructor Advanced Member Role: Other Name: FOREIGN RICO DO Position: P4 Physician - Primary Care Member Role: Primary Care Physician Address: Address: [address] [place] [address]- Name: MAXIMILIANO PAREDES MD Position: Physician Member Role: Public Health Dentist Address: Address: [address] [facility] [place] [place] [address]- [place] Name: MD ANSHU DAMON Member Role: Ux Design Lead Address: Address: [address] [place] [address]- [place] Name: BHAVNA BELTRAN MD Position: P4 Physician - General Surgery Member Role: Pain Management Address: Address: [address] [facility] [place] [address]- [place] Care Team Related Persons Name: ANANYA BAILEY Care Team Personnel Name: Pamella Steen Clerk Stella PT Position: P3 Scheduling - Kickboxing Instructor Advanced Member Role: Other Name: FOREIGN RICO DO Position: P4 Physician - Primary Care Member Role: Primary Care Physician Address: Address: [address] [place] [address]- Name: MAXIMILIANO PAREDES MD Position: Physician Member Role: Public Health Dentist Address: Address: [address] [place] [address] [place] [address]- Name: MD ANSHU DAMON Member Role: Ux Design Lead Address: Address: [address] [place], [place] [id number]- [place] Name: BHAVNA BELTRAN MD Position: P4 Physician - General Surgery Member Role: Pain Management Address: Address: [address] [facility] [place] [address]- Care Team Related Persons Name: ANANYA BAILEY Care Team Personnel Name: Pamella Steen Clerk Stella PT Position: P3 Scheduling - Kickboxing Instructor Advanced Member Role: Other Name: FOREIGN RICO DO Position: P4 Physician - Primary Care Member Role: Primary Care Physician Address: Address: [address] [place] [address]- Name: MAXIMILIANO PAREDES MD Position: Physician Member Role: Public Health Dentist Address: Address: [address] [place] [address] [place] [address]- Name: MD ANSHU DAMON Member Role: Ux Design Lead Address: Address: [address] [place], [place] [id number]- [place] Name: BHAVNA BELTRAN MD Position: P4 Physician - General Surgery Member Role: Pain Management Address: Address: [address] [facility] [place] [address]- [place] Care Team Related Persons Name: AMAYA SLAUGHTER Care Team Personnel Name: Pamella Steen Clerk Stella PT Position: P3 Scheduling - Kickboxing Instructor Advanced Member Role: Other Name: FOREIGN RICO DO Position: P4 Physician - Primary Care Member Role: Primary Care Physician Address: Address: [address] [place] [address]- [place] Name: MAXIMILIANO PAREDES MD Position: Physician Member Role: Public Health Dentist Address: Address: [address] [facility] [place] [place] [address]- [place] Name: MD ANSHU DAMON Member Role: Ux Design Lead Address: Address: [address] [place], [place] [id number]- [place] Name: BHAVNA BELTRAN MD Position: P4 Physician - General Surgery Member Role: Pain Management Address: Address: [address] [facility] [place] [address]- Care Team Related Persons Name: ANANYA BAILEY Name: WOOD, AMAYA Care Team Personnel Name: Enio Cyber Special Agent Stella PT Position: P3 Scheduling - Kickboxing Instructor Advanced Member Role: Other Name: FOREIGN RICO DO Position: P4 Physician - Primary Care Member Role: Primary Care Physician Address: Address: [address] [place] [address] Name: MAXIMILIANO PAREDES MD Position: Physician Member Role: Public Health Dentist Address: Address: [address] [place] [address] [address] [place] [address]- Name: MD ANSHU DAMON Member Role: Ux Design Lead Address: Address: [address] [place], [place] [id number]- Name: BHAVNA BELTRAN MD Position: P4 Physician - General Surgery Member Role: Pain Management Address: Address: [address] [facility] [place] [address]- Care Team Related Persons Name: ANANYA BAILEY Name: WOOD, AMAYA Care Team Personnel Name: Enio Cyber Special Agent Stella PT Position: P3 Scheduling - Kickboxing Instructor Advanced Member Role: Other Name: FOREIGN RICO DO Position: P4 Physician - Primary Care Member Role: Primary Care Physician Address: Address: [address] [place] [address]- Name: MAXIMILIANO PAREDES MD Position: Physician Member Role: Public Health Dentist Address: Address: [address] [address]- Name: MD ANSHU DAMON Member Role: Ux Design Lead Address: Address: [address] [place], [place] [id number]- Name: BHAVNA BELTRAN MD Position: P4 Physician - General Surgery Member Role: Pain Management Address: Address: [address] [facility] [place] [address]- Care Team Related Persons Name: ANANYA BAILEY Name: ELIN SLAUGHTERGY Care Team Personnel Name: Pamella Steen Clerk Stella PT Position: P3 Scheduling - Kickboxing Instructor Advanced Member Role: Other Name: FOREIGN RICO DO Position: P4 Physician - Primary Care Member Role: Primary Care Physician Address: Address: [address] [place] [address]- Name: MAXIMILIANO PAREDES MD Position: Physician Member Role: Public Health Dentist Address: Address: [facility] [place] [place] [id number] [place] [address] Name: MD ANSHU DAMON Member Role: Ux Design Lead Address: Address: [address] [place], [place] [address] Name: BHAVNA BELTRAN MD Position: P4 Physician - General Surgery Member Role: Pain Management Address: Address: [address] [facility] [place] [address]- Care Team Related Persons Name: ANANYA BAILEY Name: AMAYA SLAUGHTER Care Team (unrecognized sect ion and content) Personnel Name: FOREIGN RICO DO Address: Address: [address] [place] [address] Name: Pamella Steen Clerk Stella PT Personnel Name: FOREIGN RICO DO Address: Address: [address] [place] [address] Name: Pamella Steen Clerk Stella PT Personnel Name: FOREIGN RICO DO Address: Address: [address] [place] [address] Name: Pamella Steen Clerk Stella PT Care Team Personnel Name: Pamella Steen Clerk Stella PT Position: P3 Scheduling - Kickboxing Instructor Advanced Member Role: Other Name: FOREIGN RICO DO Position: P4 Physician - Primary Care Med Service: Active Provider Member Role: Primary Care Physician Address: Address: [address] [place] [address]- Name: MAXIMILIANO PAREDES MD Position: Physician Med Service: Admitting Member Role: Public Health Dentist Address: Address: [facility] [address] [facility] [place] [place] [address]- Name: MD ANSHU DAMON Member Role: Ux Design Lead Address: Address: [address] [place] [id number]- Name: BHAVNA BELTRAN MD Position: P4 Physician - General Surgery Med Service: Employed Provider Member Role: Pain Management Address: Address: [address] [facility] [place] [address]- Care Team Related Persons Name: ANANYA BAILEY Care Team Personnel Name: Enio Cyber Special Agent Stella PT Position: P3 Scheduling - Kickboxing Instructor Advanced Member Role: Other Name: FOREIGN RICO DO Position: P4 Physician - Primary Care Med Service: Active Provider Member Role: Primary Care Physician Address: Address: [address] [place] [address]- Name: MAXIMILIANO PAREDES MD Position: Physician Med Service: Admitting Member Role: Public Health Dentist Address: Address: [address] [place] [address] [place] [address]- Name: MD ANSHU DAMON Member Role: Ux Design Lead Address: Address: [address] [place], [place] [id number]- Name: BHAVNA BELTRAN MD Position: P4 Physician - General Surgery Med Service: Employed Provider Member Role: Pain Management Address: Address: [address] [facility] [place] [address]- Care Team Related Persons Name: ANANYA BAILEY Care Team Personnel Name: Pamella Steen Clerk Stella PT Position: P3 Scheduling - Kickboxing Instructor Advanced Member Role: Other Name: FOREIGN RICO DO Position: P4 Physician - Primary Care Med Service: Active Provider Member Role: Primary Care Physician Address: Address: [address] [place] [address]- Name: MAXIMILIANO PAREDES MD Position: Physician Med Service: Admitting Member Role: Public Health Dentist Address: Address: [address] [place] [address] [place] [address]- [place] Name: MD ANSHU DAMON Member Role: Ux Design Lead Address: Address: [address] [place], [place] [id number]- [place] Name: BHAVNA BELTRAN MD Position: P4 Physician - General Surgery Med Service: Employed Provider Member Role: Pain Management Address: Address: [address] [facility] [place] [address]- Care Team Related Persons Name: ANANYA BAILEY Care Team Personnel Name: Pamella Steen Clerk Stella PT Position: P3 Scheduling - Kickboxing Instructor Advanced Member Role: Other Name: FOREIGN RICO DO Position: P4 Physician - Primary Care Med Service: Active Provider Member Role: Primary Care Physician Address: Address: [address] [place] [address] Name: MAXIMILIANO PAREDES MD Position: Physician Med Service: Admitting Member Role: Public Health Dentist Address: Address: [address] [place] [address] [place] [address]- Name: MD ANSHU DAMON Member Role: Ux Design Lead Address: Address: [address] [place], [place] [id number]- [place] Name: BHAVNA BELTRAN MD Position: P4 Physician - General Surgery Med Service: Employed Provider Member Role: Pain Management Address: Address: [address] [facility] [place] [address]- [place] Care Team Related Persons Name: ANANYA BAILEY Care Team Personnel Name: Pamella Steen Clerk Stella PT Position: P3 Scheduling - Kickboxing Instructor Advanced Member Role: Other Name: FOREIGN RICO DO Position: P4 Physician - Primary Care Med Service: Active Provider Member Role: Primary Care Physician Address: Address: [address] [place] [id number] [place] [address] Name: MAXIMILIANO PAREDES MD Position: Physician Med Service: Admitting Member Role: Public Health Dentist Address: Address: [facility] [place] [place] [address]- Name: MD ANSHU DAMON Member Role: Ux Design Lead Address: Address: [address] [place], [place] [id number]- Name: BHAVNA BELTRAN MD Position: P4 Physician - General Surgery Med Service: Employed Provider Member Role: Pain Management Address: Address: [address] [facility] [place] [address]- [place] Care Team Related Persons Name: ANANYA BAILEY Care Team Personnel Name: Pamella Steen Clerk Stella PT Position: P3 Scheduling - Kickboxing Instructor Advanced Member Role: Other Name: FOREIGN RICO DO Position: P4 Physician - Primary Care Member Role: Primary Care Physician Address: Address: [address] [place] [address]- Name: MAXIMILIANO PAREDES MD Position: Physician Member Role: Public Health Dentist Address: Address: [address] [place] [address] [place] [address]- Name: MD ANSHU DAMON Member Role: Ux Design Lead Address: Address: [address] [place], [place] [id number]- Name: BHAVNA BELTRAN MD Position: P4 Physician - General Surgery Member Role: Pain Management Address: Address: [address] [facility] [place] [address]- [place] Care Team Related Persons Name: ANANYA BAILEY Care Team Personnel Name: Pamella Steen Clerk Stella PT Position: P3 Scheduling - Kickboxing Instructor Advanced Member Role: Other Name: FOREIGN RICO DO Position: P4 Physician - Primary Care Member Role: Primary Care Physician Address: Address: [address] [place] [address]- Name: MAXIMILIANO PAREDES MD Position: Physician Member Role: Public Health Dentist Address: Address: [address] [place] [address] [place] [address]- [place] Name: MD ANSHU DAMON Member Role: Ux Design Lead Address: Address: [address] [place], [place] [id number]- [place] Name: BHAVNA BELTRAN MD Position: P4 Physician - General Surgery Member Role: Pain Management Address: Address: [address] [facility] [place] [address]- [place] Care Team Related Persons Name: ANANYA BAILEY Care Team Personnel Name: Pamella Steen Clerk Stella PT Position: P3 Scheduling - Kickboxing Instructor Advanced Member Role: Other Name: FOREIGN RICO DO Position: P4 Physician - Primary Care Member Role: Primary Care Physician Address: Address: [address] [place] [address]- Name: MAXIMILIANO PAREDES MD Position: Physician Member Role: Public Health Dentist Address: Address: [address] [place] [address] [place] [address]- Name: MD ANSHU DAMON Member Role: Ux Design Lead Address: Address: [address] [place], [place] [id number]- [place] Name: BHAVNA BELTRAN MD Position: P4 Physician - General Surgery Member Role: Pain Management Address: Address: [address] [facility] [place] [address]- Care Team Related Persons Name: ANANYA BAILEY Care Team Personnel Name: Pamella Steen Clerk Stella PT Position: P3 Scheduling - Kickboxing Instructor Advanced Member Role: Other Name: FOREIGN RICO DO Position: P4 Physician - Primary Care Member Role: Primary Care Physician Address: Address: [address] [place] [address] Name: MAXIMILIANO PAREDES MD Position: Physician Member Role: Public Health Dentist Address: Address: [address] [place] [address] [place] [address]- Name: MD ANSHU DAMON Member Role: Ux Design Lead Address: Address: [address] [place], [place] [id number]- Name: BHAVNA BELTRAN MD Position: P4 Physician - General Surgery Member Role: Pain Management Address: Address: [address] [facility] [place] [address]- Care Team Related Persons Name: ANANYA BAILEY Care Team Personnel Name: Pamella Steen Clerk Stella PT Position: P3 Scheduling - Kickboxing Instructor Advanced Member Role: Other Name: FOREIGN RICO DO Position: P4 Physician - Primary Care Member Role: Primary Care Physician Address: Address: [address] [place] [address]- Name: MAXIMILIANO PAREDES MD Position: Physician Member Role: Public Health Dentist Address: Address: [address] [place] [address] [place] [address]- Name: MD ANSHU DAMON Member Role: Ux Design Lead Address: Address: [address] [place], [place] [id number]- Name: BHAVNA BELTRAN MD Position: P4 Physician - General Surgery Member Role: Pain Management Address: Address: [address] [facility] [place] [address]- Care Team Related Persons Name: ANANYA BAILEY Care Team Personnel Name: Pamella Steen Clerk Stella PT Position: P3 Scheduling - Kickboxing Instructor Advanced Member Role: Other Name: FOREIGN RICO DO Position: P4 Physician - Primary Care Member Role: Primary Care Physician Address: Address: [address] [place] [address]- [place] Name: MAXIMILIANO PAREDES MD Position: AH Physician Member Role: Public Health Dentist Address: Address: [address] [place] [address] [address] [place], [place] [address] Name: MD ANSHU DAMON Member Role: Ux Design Lead Address: Address: [address] [place], [place] [id number]- Name: BAHVNA BELTRAN MD Position: P4 Physician - General Surgery Member Role: Pain Management Address: Address: [address] [facility] [place], [place] [address] Care Team Related Persons Name: ANANYA BAILEY FOR RECORDS PERTAINING TO PATIENTS WHO ARE OR HAVE BEEN ENROLLED IN A CHEMICAL DEPENDENCY/SUBSTANCEABUSE PROGRAM, SOME INFORMATION MAY BE OMITTED. This clinical summary was aggregated from multiple sources. Caution should be exercised in using it in the provision of clinical care. This summary normalizes information from multiple sources, and as a consequence, information in this document may materially change the coding, format and clinical context of patient data. In addition, data may be omitted in some cases. CLINICAL DECISIONS SHOULD BE BASED ON THE PRIMARY CLINICAL RECORDS. [facility] [employer] provides no warranty or guarantee of the accuracy or completeness of information in this document.
== END | disposition home or self-care (01) ==
LOC: RAD 10:12
PROVIDERS: PCP Student in an Organized Health Care Education/Training Program; Referring Provider Anesthesiology Pain Medicine; Visit Provider Anesthesiology Pain Medicine
DX: M51.37 Other intervertebral disc degeneration, lumbosacral region (principal)
CPT/HCPCS: 72114

== ENCOUNTER → 2023-12-04 | Outpatient (CLI) | payer MEDICARE, OTHER, SELFPAY ==
--- NOTE | 2023-12-04 16:29 | RAD_ITS ---
INDICATION: PAIN EXAMINATION/TECHNIQUE: X-RAY - RIGHT XR Shoulder Min 2 Views 8 VIEWS COMPARISON: December 03, 2022 FINDINGS: SOFT TISSUES: No soft tissue swelling or gas. No radiopaque foreign body. BONES/JOINTS: No acute fracture or subluxation.. Normal alignment. There are moderate degenerative changes of the glenohumeral joint. There are mild degenerative changes of the acromioclavicular joint as well. No sclerotic or destructive changes observed. RAD/Shoulder min 2 Views IMPRESSION: Degenerative changes. Electronically Signed: Ramya Alarcon MD at 8:45 EDT ,
--- NOTE | 2023-12-04 16:35 | RAD_ITS ---
STUDY: X-RAY - LEFT SHOULDER REASON FOR EXAM: Female, 73 years old. PAIN TECHNIQUE: 4 views of the left shoulder. COMPARISON: None. FINDINGS: There is moderate to severe glenohumeral arthrosis with joint space narrowing and marginal osteophyte formation. Normal acromioclavicular joint. Normal acromion. Normal humeral head and visualized proximal humerus. The soft tissue structures are unremarkable. There is no demonstrated fracture. Normal visualized pulmonary apex. RAD/Shoulder min 2 Views IMPRESSION: Moderate to severe glenohumeral arthrosis. Electronically Signed: Anatoliy Conte MD at 8:50 EDT ,
== END | disposition home or self-care (01) ==
LOC: RAD 16:28
PROVIDERS: PCP Student in an Organized Health Care Education/Training Program; Referring Provider Anesthesiology Pain Medicine; Visit Provider Anesthesiology Pain Medicine
DX: M25.511 Pain in right shoulder (principal); M25.512 Pain in left shoulder
CPT/HCPCS: 73030

== ENCOUNTER → 2024-01-28 | Outpatient (CLI) | payer MEDICARE, OTHER, SELFPAY ==
--- NOTE | 2024-01-28 11:39 | US_ITS ---
EXAM: US RETROPERITONEAL LIMITED, RENAL CLINICAL INDICATION: UTI HX OF STONE TECHNIQUE: Limited grayscale and color Doppler sonographic evaluation of the retroperitoneum was performed. COMPARISON: Pelvic CT report of 12/13/21. FINDINGS: RIGHT KIDNEY: Right kidney measures 10.0 x 5.5 x 5.6 cm in diameter. Renal cortex measures 1.6 cm in thickness. Normal cortical echogenicity. No hydronephrosis. No shadowing calculus. Within the mid pole cortex of the right kidney is a 1.5 x 1.5 to 1.5 cm rounded thin-walled cyst which is anechoic except for a thin incomplete internal septation. No perinephric collection is demonstrated. LEFT KIDNEY: Left kidney measures 10.6 x 5.0 x 6.1 cm in diameter. Left renal cortex measures 1.4 cm in thickness. Normal cortical echogenicity. No hydronephrosis. No shadowing calculus. No focal lesion. No perinephric collection is demonstrated. URINARY BLADDER: Partially distended urinary bladder is unremarkable. No bladder calculi identified. US/Kidney and Bladder IMPRESSION: No renal calculi or hydronephrosis identified. 1.5 cm right renal septated cortical cyst, benign, and this cyst requires no follow-up. Electronically Signed: Jj Lane MD at 22:49 EDT ,
== END | disposition home or self-care (01) ==
LOC: US 11:39
PROVIDERS: PCP Student in an Organized Health Care Education/Training Program; Referring Provider Urology; Visit Provider Urology
DX: N39.0 Urinary tract infection, site not specified (principal); Z87.442 Personal history of urinary calculi
CPT/HCPCS: 76770

== ENCOUNTER 2024-12-22 12:20 | Observation (INO) | payer MEDICARE, OTHER, SELFPAY ==
--- NOTE | 2024-11-25 09:45 | EKG12_ITS ---
Test Reason : PRE OP Blood Pressure : */* mmHG Vent. Rate : 93 BPM Atrial Rate : 100 BPM P-R Int : * ms QRS Dur : 86 ms QT Int : 384 ms P-R-T Axes : * 101 101 degrees QTcB Int : [address] & T wave abnormality, consider anterior ischemia or digitalis effect Prolonged QT Abnormal ECG Confirmed by Barron Tavarez ([id number]), purchasing expeditor CHRISTOPHER SKINNER ([id number]) on 11/26/2024 11:22:50 AM Referred By: Yossi Gomez Confirmed By: Barron Tavarez
[2024-11-25 10:32] LABS: Hematocrit 42.9 % (37-47); Hemoglobin 14.1 g/dL (12.0-15.0); Immature Granulocytes Count 0.020 X10^3/uL (0.0-0.0); Mean Corp Hgb Conc 32.9 g/dL (32-36); Mean Corpuscular Volume 92.5 fL (81-99); Mean Platelet Vol. 10.0 fl (6.2-12.0); NRBC Flagged by Analyzer 0 % (0-5); Platelet Count 240 K/mm3 (150-450); RBC Distribution Width CV 13.9 % (11.6-14.6); RBC Distribution Width SD 46.9 fl (35.1-43.9); Red Blood Count 4.64 M/mm3 (4.2-5.4); White Blood Count 7.1 K/mm3 (4.4-11.0)
[2024-11-25 11:13] LABS: Albumin, Serum 4.2 g/dL (3.4-4.8); Anion Gap 13 (5-15); BUN 13 mg/dL (4-19); BUN/Creat Ratio 14.4 RATIO (10-20); Calcium,Total 9.4 mg/dL (7.6-11.0); Carbon Dioxide 23.9 mmol/L (21.0-32.0); Chloride 103 mmol/L (98-108); Glucose 193 mg/dL (70-99); Potassium 4.0 mmol/L (3.3-5.1)
[2024-11-25 11:20] LABS: Magnesium 2.1 mg/dL (1.5-2.2)
--- NOTE | 2024-11-26 21:08 | PAT.ANESEVAL ---
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 When Was Last Pacemaker Check QUESTION #4 FULL TEXT: You/Your Family Experience fever (hyperthermia) with Anesthesia Last Oral Intake Last Oral intake: Last Oral Intake NPO since Meds taken in AM with sips of water? Meds patient instructed to take am of surgery PONV PONV - armored transport service manager: PONV - armored transport service manager Female Yes 11/24/24 10:32 HX of Motion Sickness Yes 11/24/24 10:32 HX of N/V After Surgery Yes 11/24/24 10:32 Non-Smoker Yes 11/24/24 10:32 Duration of Surgery greater Yes 11/24/24 10:32 than 60 minutes Number of Risk Factors 5 11/24/24 10:32 PONV Score Severe Risk 11/24/24 10:32 Height & Weight Height & Weight: Anesthesia: Height & Weight Height 5 ft 3 in 12/29/21 06:43 Respiratory Assessment Respiratory Assessment - armored transport service manager: Respiratory Tract Infection Hx - armored transport service manager Hx Respiratory Tract Infection No 11/24/24 10:32 STOP Sleep Apnea STOP Sleep Apnea - armored transport service manager: STOP Sleep Apnea - armored transport service manager Hx Hypertension Yes: CONTROLLED ON MED 11/24/24 10:32 Hx Sleep Apnea Yes 11/24/24 10:32 CPAP Yes 11/24/24 10:32 BIPAP No 11/24/24 10:32 Do you snore loudly (louder than talking or can be heard Do you often feel tired/ fatigued/ sleepy during daytime? Has anyone observed you stop breathing during sleep? STOP Results Positive 11/24/24 10:32 QUESTION #5 FULL TEXT : Do you snore loudly (louder than talking or can be heard through closed doors)? 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 Specify any problems Hx of Preganancy in last 3 No 11/24/24 10:32 Months Nurse Filling Out Transfusion VCHRISTIN 11/24/24 10:32 & Questions: Date: 11/24/24 11/24/24 10:32 Time: 10:38 11/24/24 10:32 Patient unable to answer at this time (ie. confused, unrespo /Reproduction History /Reproductive History - armored transport service manager: /Reproductive Hx- armored transport service manager Hx Now No 11/24/24 10:32 Gestational Age (in weeks): EDC: Hx Hx Para Hx Section SAB No 11/24/24 10:32 [facility] Medical History (Updated 11/24/24 @ 11:57 by Kim Henry) History of echocardiogram Post-menopausal History of steroid therapy Diabetes Kidney stones Left ureteral stone PONV (postoperative nausea and vomiting) Wears hearing aid Wears glasses Thyroid disease Arthritis High cholesterol History of IBS CPAP (continuous positive airway pressure) dependence Sleep apnea Hypertension Cardiology follow-up encounter History of atrial fibrillation Home Medications ?Medication ?Instructions ?Recorded ?Last Taken ?Type calcium citrate 500 mg (2,376 mg) 500 mg PO DAILY 12/21/21 Unknown History effervescent tablet cholecalciferol (vitamin D3) 50 50 mcg PO DAILY 12/21/21 Unknown History mcg (2,000 unit) tablet escitalopram oxalate 10 mg tablet 10 mg PO DAILY 12/21/21 12/29/21 06:32 History furosemide 20 mg tablet 20 mg PO DAILY 12/21/21 Unknown History rosuvastatin 10 mg tablet 10 mg PO DAILY 12/21/21 Unknown History warfarin 2 mg tablet 6 mg PO DAILY 12/21/21 Unknown History cyanocobalamin (vitamin B-12) 2,000 mcg PO DAILY 11/24/24 Unknown History 1,000 mcg tablet,extended release (Vitamin B-12 ER) diltiazem HCl 300 mg 300 mg PO DAILY 11/24/24 Unknown History tablet,extended release 24 hr (Matzim [place]) docusate sodium 100 mg capsule 100 mg PO DAILY 11/24/24 Unknown History escitalopram oxalate 5 mg tablet 5 mg PO DAILY 11/24/24 Unknown History fluticasone furoate 100 1 inh inhalation DAILY 11/24/24 Unknown History mcg/actuation blister powder for inhalation (Arnuity Ellipta) levothyroxine 75 mcg tablet 75 mcg PO DAILY 11/24/24 Unknown History semaglutide 7 mg tablet (Rybelsus) 7 mg PO DAILY 11/24/24 Unknown History Allergy/AdvReac Type Severity Reaction Status Date / Time cortisone Allergy Severe Other Verified 11/24/24 10:01 Nitrate Analogues Allergy Severe Other Verified 11/24/24 10:01 erythromycin base Allergy Upset Verified 11/24/24 10:01 Stomach Penicillins (PCN) Allergy Swelling Verified 11/24/24 10:01 Surgical History (Updated 11/24/24 @ 11:57 by Kim Henry) History of cardiac catheterization History of partial hysterectomy Hx of total hip arthroplasty Hx of cystoscopy History of heart surgery History of hip replacement History of back surgery Hx of parathyroidectomy Social History Smoking Status: Never smoker Audit: Pertinent Findings HISTORY of Pertinent Findings History of Pertinent Findings: Patient with a history of congenital atrial septal defect that was closed with a percutaneous transcatheter approach, atrial fibrillation, asthma, DEUCE on CPAP, pulmonary artery hypertension who group 1 Pertinent Findings EKG Perinent findings: EKG 11/25/2024: Vent. Rate : 93 BPM Atrial Rate : 100 BPM P-R Int : * ms QRS Dur : 86 ms QT Int : 384 ms P-R-T Axes : * 101 101 degrees QTcB Int : [address] & T wave abnormality, consider anterior ischemia or digitalis effect Prolonged QT Abnormal ECG Echo (EF%) pertinent findings: 03/17/2024: LVEF estimated around 50 to 55%. LA is severely enlarged. Mild aortic valvular stenosis. Right ventricular systolic pressure is estimated around 4050 mmHg. No evidence of interatrial shunt based on contrast study. AMILCAR estimated around 1.1 cm?. Ao V2 VTI: 38.8 cm Recommendation Anesthesia Recommendation Anesthesia recommendation: OPTIMIZED for anesthesia (Patient with a history of mild aortic stenosis. Would exercise precautionary measures if considering spinal anesthetic for knee replacement surgery.)
[2024-12-22] VITALS (19 sets, daily range): BP systolic 91–128; BP diastolic 43–79; PULSE 66–85; RESP 15–18; TEMP 36.1–36.9; O2SAT 92–97; BMI 32.5
[2024-12-22 08:13] LABS: INR Fingerstick 1.2
[2024-12-22] MEDS: LR 1,000 ML - BOLUS PREOP 999 ML IV (08:59)
[2024-12-22] MEDS: Magnesium 1 GM over 15 mins IV (09:00)
--- NOTE | 2024-12-22 09:32 | PCM.PRE.AN2 ---
ASA Classification* ASA Classification ASA Classification: 3 Assessment & Plan Anesthesia* Anesthesia Assessment Anesthesia Assessment: Discussed sedation and/or anesthesia options, risks, benefits, and alternatives with patient/parents/legal guardian/POA. Questions invited. The patient/parents/legal guardian/POA seems to understand and agrees to proceed with anesthesia plan. Reviewed the physical assessment, medical history, allergy history and patient home medications list prior to surgery/procedure/anesthetic and documented any changes. Performed airway and anesthesia risk assessments. Anesthesia Type Anesthesia Type: Spinal (Patient had lower lumbar surgery, per patient NO HARDWARE, just bone shaved off. Explained Spinal and possibility of GA/LMA vs GETA.) and Block (Adductor canal block explained, patient states understanding. ) History Source History Obtained from:: Patient and Chart Anesthesia Focused Assessment* Temperature: 98.4 F Pulse Rate: 83 Blood Pressure: 121/79 Respiratory Rate: 16 Pulse Ox: 96 Oxygen Delivery Method: Room Air Airway Assessment Mouth opens: >3 cm Mallampati Score: III Teeth Condition: Intact Neck Range of motion (ROM): Full ROM Labs Anesthesia Preop lab: CBC WBC 7.1 K/mm3 (4.4-11.0) 11/25/24 10:02 11/25/24 RBC 4.64 M/mm3 (4.2-5.4) 11/25/24 10:02 11/25/24 Hgb 14.1 g/dL (12.0-15.0) 11/25/24 10:02 11/25/24 Hct 42.9 % (37-47) 11/25/24 10:02 11/25/24 Plt Count 240 K/mm3 (150-450) 11/25/24 10:02 11/25/24 CHEMISTRY Potassium 4.0 mmol/L (3.3-5.1) 11/25/24 10:02 11/25/24 Sodium 140 mmol/L (133-145) 11/25/24 10:02 11/25/24 Magnesium 2.1 mg/dL (1.5-2.2) 11/25/24 10:02 11/25/24 BUN 13 mg/dL (4-19) 11/25/24 10:02 11/25/24 Creatinine 0.87 mg/dL (0.70-1.20) 11/25/24 10:02 11/25/24 Glucose 193 mg/dL (70-99) H 11/25/24 10:02 11/25/24 TSH 2.380 uIU/mL (0.300-4.200) 11/25/24 10:02 11/25/24 COAG PT 24.9 SECONDS (11.7-14.9) H 12/29/21 07:00 12/29/21 Pre-Assessment Diagnosis/Proposed Procedure Planned Operative Procedure(s): (R) ROBOTIC ASSISTED RIGHT TOTAL KNEE ARTHROPLASTY, ERAS Anesthesia History Anesthesia History - barrel rifler button: Anesthesia History - barrel rifler button Hx Hospitalization No 11/24/24 10:32 Any Problems With Anesthesia Yes: N&V 11/24/24 10:32 Cholinesterase deficiency No 11/24/24 10:32 You/Your Family Experience No 11/24/24 10:32 fever (hyperthermia) with Relationship Recent Exposure to Contagious No 12/22/24 08:42 Disease Does patient have nerve No 11/24/24 10:32 stimulator Patient instructed to have device shut off --Does patient have Pacemaker No 12/22/24 08:42 or ICD? When Was Last Pacemaker Check QUESTION #4 FULL TEXT: You/Your Family Experience fever (hyperthermia) with Anesthesia Any additional information?: No Last Oral Intake Last Oral intake: Last Oral Intake NPO since 19:00 12/22/24 08:42 Meds taken in AM with sips of Yes 12/22/24 08:42 water? Meds patient instructed to did not drink ensures 12/22/24 08:42 take am of surgery Any additional information?: No PONV PONV - barrel rifler button: PONV - barrel rifler button Female Yes 11/24/24 10:32 HX of Motion Sickness Yes 11/24/24 10:32 HX of N/V After Surgery Yes 11/24/24 10:32 Non-Smoker Yes 11/24/24 10:32 Duration of Surgery greater Yes 11/24/24 10:32 than 60 minutes Number of Risk Factors 5 11/24/24 10:32 PONV Score Severe Risk 11/24/24 10:32 Any additional information?: No Height & Weight Height & Weight: Anesthesia: Height & Weight Height 5 ft 4 in 12/22/24 08:42 Weight: 86 kg 12/22/24 08:42 Body Mass Index (BMI) 32.5 12/22/24 08:42 Respiratory Assessment Respiratory Assessment - barrel rifler button: Respiratory Tract Infection Hx - barrel rifler button Hx Respiratory Tract Infection No 11/24/24 10:32 Any additional information?: No STOP Sleep Apnea STOP Sleep Apnea - barrel rifler button: STOP Sleep Apnea - barrel rifler button Hx Hypertension Yes: CONTROLLED ON MED 11/24/24 10:32 Hx Sleep Apnea Yes 11/24/24 10:32 CPAP Yes 11/24/24 10:32 BIPAP No 11/24/24 10:32 Do you snore loudly (louder than talking or can be heard Do you often feel tired/ fatigued/ sleepy during daytime? Has anyone observed you stop breathing during sleep? STOP Results Positive 11/24/24 10:32 QUESTION #5 FULL TEXT : Do you snore loudly (louder than talking or can be heard through closed doors)? Any additional information?: No Tobacco Use History Tobacco Use History - barrel rifler button: Tobacco Use History - barrel rifler button Tobacco Use Smoking Status Never smoker 11/24/24 10:32 Hx Tobacco Use No 11/24/24 10:32 Years Smoking Packs Smoked per Day Smoking Cessation Date was within the last 15 years Hx Smoking Cessation Date Hx Smoking Cessation Counseling Any additional information?: No Hematologic Medial History Hematologic Hx - barrel rifler button: Hematologic Medical Hx - back hanger Hx of Blood Transfusion No 11/24/24 10:32 Hx of Transfusion in last 3 No 11/24/24 10:32 Months Date of Last Transfusion (if within last 3 months) Ever experience any problems No 11/24/24 10:32 with transfusion(s)? Specify any problems Hx of Preganancy in last 3 No 11/24/24 10:32 Months Nurse Filling Out Transfusion VCHRISTIN 11/24/24 10:32 & Questions: Date: 11/24/24 11/24/24 10:32 Time: 10:38 11/24/24 10:32 Patient unable to answer at this time (ie. confused, unrespo Any additional information?: No /Reproduction History /Reproductive History - barrel rifler button: /Reproductive Hx- barrel rifler button Hx Now No 11/24/24 10:32 Gestational Age (in weeks): EDC: Hx Hx Para Hx Section SAB No 11/24/24 10:32 Any additional information?: No Active Medications Active Medications: Current Medications Generic Name Dose Route Start Last Admin Trade Name Thierno PRN Reason Stop Dose Admin Acetaminophen 1,000 mg 12/22/24 10:30 12/22/24 09:01 Acetaminophen 500 Mg Tablet PO 12/22/24 10:31 1,000 mg PREOP ONE Administration Celecoxib 400 mg 12/22/24 10:30 12/22/24 09:01 Celecoxib 200 Mg Capsule PO 12/22/24 10:31 400 mg PREOP ONE Administration Sodium Chloride 77.9 ml/ 0 ml 12/22/24 10:30 Ropivacaine 200 mg/ OPERA.SITE 12/22/24 10:31 Epinephrine HCl 0.6 mg/ INTRAOP ONE Ketorolac Tromethamine 30 mg/ Morphine Sulfate 5 mg Gabapentin 600 mg 12/22/24 10:30 12/22/24 09:01 Gabapentin 600 Mg Tablet PO 12/22/24 10:31 600 mg PREOP ONE Administration Lactated Ringer's 1,000 mls @ 999 mls/hr 12/22/24 10:30 12/22/24 08:59 IV 12/22/24 11:30 999 mls/hr .Q1H1M LICHA Administration Cefazolin Sodium 2 gm/ Sodium 110 mls @ 150 mls/hr 12/22/24 10:30 Chloride IV 12/22/24 11:13 INTRAOP ONE Tranexamic Acid 1,000 mg/ 110 mls @ 660 mls/hr 12/22/24 10:30 Sodium Chloride IV 12/22/24 10:39 INTRAOP ONE Tranexamic Acid 1,000 mg/ 110 mls @ 660 mls/hr 12/22/24 10:30 Sodium Chloride IV 12/22/24 10:39 INTRAOP ONE Lactated Ringer's 1,000 mls @ 999 mls/hr 12/22/24 10:30 IV 12/22/24 11:30 .Q1H1M LICHA Lactated Ringer's 1,000 mls @ 125 mls/hr 12/22/24 10:30 IV 12/22/24 18:29 .Q8H LICHA Magnesium Sulfate 1 gm/ 102 mls @ 408 mls/hr 12/22/24 10:30 12/22/24 09:00 Dextrose IV 12/22/24 10:44 408 mls/hr PREOP ONE Administration Insulin Human Lispro 1 - 6 unit 12/22/24 10:30 Insulin Lispro 100 Unit/Ml Insuln.Pen SC 12/22/24 18:00 Q4H PRN PRN BG>/= 180, SEE PROTOCOL Protocol PFSH Medical History History of echocardiogram Post-menopausal History of steroid therapy Diabetes Kidney stones Left ureteral stone PONV (postoperative nausea and vomiting) Wears hearing aid Wears glasses Thyroid disease Arthritis High cholesterol History of IBS CPAP (continuous positive airway pressure) dependence Sleep apnea Hypertension Cardiology follow-up encounter History of atrial fibrillation Home Medications ?Medication ?Instructions ?Recorded ?Last Taken ?Type calcium citrate 500 mg (2,376 mg) 500 mg PO DAILY 12/21/21 12/19/24 History effervescent tablet cholecalciferol (vitamin D3) 50 50 mcg PO DAILY 12/21/21 12/19/24 History mcg (2,000 unit) tablet escitalopram oxalate 10 mg tablet 10 mg PO DAILY 12/21/21 12/21/24 History furosemide 20 mg tablet 20 mg PO DAILY 12/21/21 12/21/24 History rosuvastatin 10 mg tablet 10 mg PO DAILY 12/21/21 12/21/24 History warfarin 2 mg tablet 6 mg PO DAILY 12/21/21 12/17/24 History cyanocobalamin (vitamin B-12) 2,000 mcg PO DAILY 11/24/24 12/19/24 History 1,000 mcg tablet,extended release (Vitamin B-12 ER) diltiazem HCl 300 mg 300 mg PO DAILY 11/24/24 12/22/24 06:00 History tablet,extended release 24 hr (Matzim [place]) docusate sodium 100 mg capsule 100 mg PO DAILY 11/24/24 Unknown History escitalopram oxalate 5 mg tablet 5 mg PO DAILY 11/24/24 Unknown History fluticasone furoate 100 1 inh inhalation DAILY 11/24/24 12/22/24 06:00 History mcg/actuation blister powder for inhalation (Arnuity Ellipta) levothyroxine 75 mcg tablet 75 mcg PO DAILY 11/24/24 12/22/24 06:00 History semaglutide 7 mg tablet (Rybelsus) 7 mg PO DAILY 11/24/24 12/18/24 History Allergy/AdvReac Type Severity Reaction Status Date / Time cortisone Allergy Severe Other Verified 12/22/24 09:36 Nitrate Analogues Allergy Severe Other Verified 12/22/24 09:36 erythromycin base Allergy Upset Verified 12/22/24 09:36 Stomach Penicillins (PCN) Allergy Swelling Verified 12/22/24 09:36 Surgical History History of cardiac catheterization History of partial hysterectomy Hx of total hip arthroplasty Hx of cystoscopy History of heart surgery History of hip replacement History of back surgery Hx of parathyroidectomy Social History Smoking Status: Never smoker Addt'l Information Additional Findings: INR 1.2 fingerstick. Patient with prolonged QT Review of Systems (Anesthesia) ROS Narrative System reviewed and no additional complaints, except as documented.
[2024-12-22] MEDS: Midazolam 2 MG/2 ML Syringe IV (10:20)
[2024-12-22] MEDS: Cefazolin 1 GM/5 ML Vial 2 GM IV (10:30)
[2024-12-22] MEDS: Lidocaine 2% (5ml sdv) 5 ML VIAL.MPF IV (10:37)
[2024-12-22] MEDS: JPS (Morphine 10mg/ml) OPERA.SITE (11:38)
[2024-12-22] MEDS: TRANEXAMIC ACID 1,000 MG/10 ML ML 2000 MG IV (11:38)
--- NOTE | 2024-12-22 12:33 | PCM.POST.ANE ---
Anesthesia: Postop Eval I Current Vital Signs Temperature: 97.8 F Pulse Rate: 85 Blood Pressure: 101/60 Respiratory Rate: 16 Pulse Ox: 92 Assessment Airway patent: Yes Spontaneous unlabored respirations: Yes nausea: No Vomiting: No Anesthesia Complication: No Fluid Hydration Crystalloid volume administer (ml): 1,100 Total IV fluid infused: 1,100 Progress Note Anesthesia document: Postop Eval 1 completed: Yes
--- NOTE | 2024-12-22 13:06 | PCM.OPRPT ---
Operative Report (Standard) Operative Information Date of Procedure: 12/22/24 Pre-Operative Diagnosis: Right knee osteoarthritis Post-Operative Diagnosis: Right knee osteoarthritis Surgery/Procedure Performed: Robotic arm assisted right total knee arthroplasty nurse midwife/clinical instructor: Yes Web Development Manager: Lynda Camarillo Tasks completed by or first assist registered nurse: Opening & closing, Implanting device, Hemostasis: Electrocautery and Retracting Type of Anesthesia: Spinal/Supplemental RN Documented Start/Stop Times: Operation Date: 12/22/24 10:30 Case Time Into Pre-Op 12/22/24 08:09 Anesthesia Start 12/22/24 10:30 Into Room 12/22/24 10:30 Procedure Start 12/22/24 10:50 Procedure End 12/22/24 12:06 Anesthesia End 12/22/24 12:14 Out of Room 12/22/24 12:14 Into Recovery 12/22/24 12:15 Procedure Start Time: 10:50 Procedure Stop Time: 12:06 Select all DRAINS/GRAFTS/IMPLANTS that apply: Implanted device Implanted device details: [place] triathlon cemented CR femur size #2, size 3 tibial baseplate with 9 mm CS polyethylene insert Estimated Blood Loss: 50 cc Specimen collected: No Description of surgery: Patient was identified in the preoperative holding area by name, medical record number, and date of . Informed set was confirmed with the patient. The operative knee was marked with a surgical marker. At time of her procedure, patient brought to the operative suite and positioned supine a standard operating table. Anesthesia then administered a spinal anesthetic. He was then repositioned in the supine position with all bony prominences well-padded. We then placed a well-padded pneumatic tourniquet on the right upper thigh. The right upper extremity was brought across patient's chest throughout the procedure. We then prepped and draped the right lower extremity in a normal, sterile orthopedic fashion. We performed a timeout with all parties in attendance in agreement with the side, site, operation be performed. No concerns were voiced and would like to proceed with surgery. 2 g Ancef was administered prior to the incision by anesthesia staff as well as 1 g IV TXA. First exsanguinated the right lower extremity with a Esmarch bandage. Tourniquet was inflated to 250 mmHg for approximately 45 minutes. Esmarch was removed. I planned a standard midline approach to the right knee approximately 15 cm in length. Skin was sharply incised with a 10 blade scalpel developing full-thickness layers down to the retinaculum. Layers were developed identifying the VMO. I then planned a standard medial parapatellar arthrotomy performed in flexion. The anterior horn of the medial meniscus was released. Hoffa's fat pad was then released. I then everted the patella in extension and brought the knee into 90 degrees of flexion. The anterior horn of the lateral meniscus was then released. The ACL was split in its mid substance with a 10 blade. We then brought the knee back into extension. Patella was left table mountain due to moderate degenerative changes. I then placed pins in the metaphyseal distal femur medial to lateral for the Denzel arrays. In similar fashion, I made a 2 cm incision approximately a handsbreadth distal to the tibial tubercle along the medial aspect of the tibia, drilling 2 bicortical pins for the tibial array. The knee was brought into flexion. The patella was subluxed laterally but not everted. Medial lateral retractors were placed. We then utilized the [employer] software to confirm our planned surgical procedure and oriented with the patient's osseous anatomy. All checks with the [employer] system were confirmed. Patient had a significant fixed varus deformity after performing stress examination utilizing the [employer] software. We elected to place the tibial baseplate in 1 degree of varus to allow for appropriate balancing. Sawblade was then brought in. I first started with the tibial cut, ensuring protection of the MCL and patellar tendon. A tibial wafer was then excised. I then proceeded to make the posterior femoral, anterior, anterior chamfer cuts with the same blade. Ligaments were protected with [employer] retractors. Sawblade was then exchanged to perform the distal femoral and posterior chamfer cuts. The robot was then removed from the surgical field. Remaining loose bone and meniscus was excised carefully. Posterior osteophytes were removed from the distal femur with a curved osteotome and rongeur. Trial components were then placed. Balance was excellent in both extension and 90 degrees flexion. No mid flexion instability was apparent. Tracking was excellent. We then marked for tibial baseplate. Distal femoral pegs were drilled. Tibial keel was punched. Trials were removed. Periarticular block was administered. The wound was copiously irrigated with normal saline solution. Simplex cement was then mixed on the back table. Components were then cemented in place with excess cement being removed. Cement was allowed to cure with the components in full extension utilizing a 9 mm trial polyethylene component. While the cement was curing, Betadine solution was irrigated into the wound and the wound edges. After cement had cured fully, trial polyethylene was removed. Tourniquet was deflated. Hemostasis was excellent. An additional 1 g TXA was administered IV. I selected a size 9 mm polyethylene which was placed and impacted per garden worker recommendations. Final components appeared very well balanced with excellent range of motion. There was no significant remaining flexion contracture. The wound was copiously irrigated with normal saline solution. Capsule was closed watertight with #1 strata fix barbed suture. Deeper bursal layer was reapproximated with 0 Vicryl suture. Dermis was reapproximated buried interrupted 2-0 Vicryl suture. Skin was finally reapproximated bia. Patient tolerated the procedure well without apparent complication. She was safely awakened in the operative suite, transferred to her hospital bed and subsequently to PACU in stable condition. Need for skilled insurance administrative assistant: Lynda Camarillo PA-C was critical to the outcome of the case. During the course of the procedure the physician insurance administrative assistant played a vital role. Her intimate knowledge of my steps in the procedure aided in safe and expedient completion of the procedure. The PA played a vital role in positioning particularly in obtaining the appropriate positioning. The PA was also vital in the retraction of soft tissues during the exposure and projecting vital structures. The PA was also vital and protecting soft tissues during times of bony cuts. She also played a vital role in closure with my direct supervision. The PA was also important during reduction and dislocation of the joint and trials intraoperatively. Post Operative Plan: Patient will be placed in observation overnight. Patient does live at home alone with no family in the area. She will likely need placement for convalescence. Weightbearing: Range of motion and weightbearing as tolerated right lower extremity. Antibiotics: Ancef 2 g every 8 hours x 3 doses DVT Prophylaxis: Restart home Coumadin postoperative day #1, SCDs, early mobilization, EDE Mcmahon: None Dressing: Maintain silver dressing x5 days X-Rays: 2-week x-rays in the office. Follow-up: 2 weeks in my office for staple removal Surgical Findings: Flexible varus deformity. Stable right knee following final fixation. Good patellar tracking. Complications Complications: No Admit VTE Documentation VTE Present on Admission: No VTE Mechan Device Prophylaxis: SCD's and Thigh High EDE Gonzalez VTE Pharm Prophylaxis ordered?: Yes
[2024-12-22] MEDS: LR 1,000 ML - BOLUS POSTOP 999 ML IV (14:00)
--- NOTE | 2024-12-22 14:22 | POSTOPAN2_ITS ---
Anesthesia Postop Eval I Sum Postop Eval Completion status Anesthesia document: Postop Eval 1 completed: Yes Anesthesia Postop Eval I Summary Anesthesia Postop Eval I Summary: Anesthesia Postop Eval I: Assessment Summary Airway patent Yes 12/22/24 12:33 COORDINATOR OF LIBRARY [email or web address] Spontaneous unlabored Yes 12/22/24 12:33 COORDINATOR OF LIBRARY [email or web address] respirations Mental status nausea No 12/22/24 12:33 COORDINATOR OF LIBRARY [email or web address] Vomiting No 12/22/24 12:33 COORDINATOR OF LIBRARY [email or web address] Anesthesia Postop Eval I: Fluid Summary Crystalloid volume administer 1,100 12/22/24 12:33 COORDINATOR OF LIBRARY [email or web address] (ml) Colloids volume administered ( ml) Blood Product volume administered (ml) Total IV fluid infused 1,100 12/22/24 12:33 COORDINATOR OF LIBRARY [email or web address] Anesthesia Postop Eval I: Summary Notes Anesthesia Complication No 12/22/24 12:33 COORDINATOR OF LIBRARY [email or web address] Anesthesia Complication Comment: Post-operative progress note Anesthesia: Postop Eval II Evaluation Mental status: Awake and Calm Pain Level: 2 nausea: No Vomiting: No Complications Anesthesia Complication: No
--- NOTE | 2024-12-22 14:22 | PCM.POSTANE2 ---
Anesthesia Postop Eval I Sum Postop Eval Completion status Anesthesia document: Postop Eval 1 completed: Yes Anesthesia Postop Eval I Summary Anesthesia Postop Eval I Summary: Anesthesia Postop Eval I: Assessment Summary Airway patent Yes 12/22/24 12:33 MEDICAL DATA ENTRY [email or web address] Spontaneous unlabored Yes 12/22/24 12:33 MEDICAL DATA ENTRY [email or web address] respirations Mental status nausea No 12/22/24 12:33 MEDICAL DATA ENTRY [email or web address] Vomiting No 12/22/24 12:33 MEDICAL DATA ENTRY [email or web address] Anesthesia Postop Eval I: Fluid Summary Crystalloid volume administer 1,100 12/22/24 12:33 MEDICAL DATA ENTRY [email or web address] (ml) Colloids volume administered ( ml) Blood Product volume administered (ml) Total IV fluid infused 1,100 12/22/24 12:33 MEDICAL DATA ENTRY [email or web address] Anesthesia Postop Eval I: Summary Notes Anesthesia Complication No 12/22/24 12:33 MEDICAL DATA ENTRY [email or web address] Anesthesia Complication Comment: Post-operative progress note Anesthesia: Postop Eval II Evaluation Mental status: Awake and Calm Pain Level: 2 nausea: No Vomiting: No Complications Anesthesia Complication: No
[2024-12-22] MEDS: LR 1,000 ML - 125 ML/HR (POST BOLUS) POST OP IV (15:30)
[2024-12-22] MEDS: Cefazolin 1 GM/50 ML BAG IV (18:25)
--- NOTE | 2024-12-22 20:24 | PCM.CONS.GEN ---
Assessment & Plan Assessment/Plan (1) Diabetes: PLAN: Plan #Type 2 diabetes mellitus -Glucose checks and sliding scale insulin #DEUCE - Patient reports she did not bring her CPAP and will be fine if she goes night without it # History of A-fib - Resume Coumadin at discretion of primary - Patient on diltiazem, holding parameters added given blood pressure little soft, patient asymptomatic #Depression/anxiety -Continue home medications #Hx ?asthma vs COPD -Continue home inhalers -Incentive spirometer -Follows w/ Dr. Dimas on outpt basis #Hypothyroidism -Continue Synthroid #Hx kidney stones -Noted # Right knee osteoarthritis -Status post robotic arm assisted right total knee arthroplasty 12/22/[address] Gomez -Management/pain management per primary #DVT ppx: Timing and agent at discretion of primary Brooke Reed MD Time spent in the patient's overall evaluation, decision-making process, review of diagnostic data, adjustment of management, discussion with other providers, nursing and ancillary staff involved in patient's care documentation, 21 Minutes HPI Consult Data Date of Consult: 12/22/24 HPI Narrative Reason for Consultation: Postop medical management HPI Narrative: RAYMON BAILEY, is [id number] female history of DEUCE, A-fib, kidney stones, diabetes, hypertension, depression, COPD, hypothyroidism presented [facility] 12/22/2024 for a robotic arm assisted right total knee arthroplasty with Dr. Gomez. Hospitalist consulted for postoperative medical management. Patient evaluated at bedside. Patient reports feeling little bit of pulling in her right knee like she did prior to surgery and is worried that it will start hurting, outside of her knee she has no other new acute complaints, urinated well before she came up to the floor [facility] Medical History (Updated 12/22/24 @ 20:[address] Brooke Reed MD) Arthritis Cardiology follow-up encounter CPAP (continuous positive airway pressure) dependence Diabetes High cholesterol History of atrial fibrillation History of echocardiogram History of IBS History of steroid therapy Hypertension Kidney stones Left ureteral stone PONV (postoperative nausea and vomiting) Post-menopausal Sleep apnea Thyroid disease Wears glasses Wears hearing aid Home Medications ?Medication ?Instructions ?Recorded ?Last Taken ?Type calcium citrate 500 mg (2,376 mg) 500 mg PO DAILY 12/21/21 12/19/24 History effervescent tablet cholecalciferol (vitamin D3) 50 50 mcg PO DAILY 12/21/21 12/19/24 History mcg (2,000 unit) tablet escitalopram oxalate 10 mg tablet 10 mg PO DAILY 12/21/21 12/21/24 History furosemide 20 mg tablet 20 mg PO DAILY 12/21/21 12/21/24 History rosuvastatin 10 mg tablet 10 mg PO DAILY 12/21/21 12/21/24 History warfarin 2 mg tablet 6 mg PO DAILY 12/21/21 12/17/24 History cyanocobalamin (vitamin B-12) 2,000 mcg PO DAILY 11/24/24 12/19/24 History 1,000 mcg tablet,extended release (Vitamin B-12 ER) diltiazem HCl 300 mg 300 mg PO DAILY 11/24/24 12/22/24 06:00 History tablet,extended release 24 hr (Matzim [place]) docusate sodium 100 mg capsule 100 mg PO DAILY 11/24/24 Unknown History escitalopram oxalate 5 mg tablet 5 mg PO DAILY 11/24/24 Unknown History fluticasone furoate 100 1 inh inhalation DAILY 11/24/24 12/22/24 06:00 History mcg/actuation blister powder for inhalation (Arnuity Ellipta) levothyroxine 75 mcg tablet 75 mcg PO DAILY 11/24/24 12/22/24 06:00 History semaglutide 7 mg tablet (Rybelsus) 7 mg PO DAILY 11/24/24 12/18/24 History Allergy/AdvReac Type Severity Reaction Status Date / Time cortisone Allergy Severe Other Verified 12/22/24 09:36 Nitrate Analogues Allergy Severe Other Verified 12/22/24 09:36 erythromycin base Allergy Upset Verified 12/22/24 09:36 Stomach Penicillins (PCN) Allergy Swelling Verified 12/22/24 09:36 Surgical History History of back surgery History of cardiac catheterization History of heart surgery History of hip replacement History of partial hysterectomy Hx of cystoscopy Hx of parathyroidectomy Hx of total hip arthroplasty Social History Smoking Status: Never smoker ROS ROS Narrative General: Denies fever/chills HENT: Denies headache, denies stuffy nose, denies sore throat EYES: Denies changes in vision Resp: Denies cough, denies shortness of breath Cardiac: Denies chest pain GI: Denies abdominal pain, had diarrhea couple days ago but none presently, denies nausea/vomiting : Denies changes in urination Extremity: Denies swelling, some knee pain as described above MSK: Denies weakness Neuro: Denies any numbness/tingling Heme: Denies any bleeding or bruising Skin: Denies rashes Psychiatric: No complaints voiced Physical Exam Narrative General: Alert, oriented, no apparent distress HEENT: Atraumatic, normocephalic Eyes: Anicteric, normal conjunctiva, extraocular movements grossly intact Neck: Supple Respiratory: Clear to auscultation bilaterally, normal respiratory effort Cardiovascular: Regular rate and rhythm GI: Soft, nontender, nondistended Extremities: Right knee wrapped, patient postoperative Musculoskeletal: Moving all other extremities Neuro: No overt focal neurological deficits Skin: No rashes appreciated Psych: Cooperative Lab / Micro Data 11/25/24 10:02 11/25/24 10:02 Labs: Laboratory Results - last 24 hr 12/22/24 08:09: POC PT 14.4, INR 1.2 12/22/24 08:47: POC Glucose 147 H Charges/Coding Visit Charges Office Visits / Consults: 46570 OV L3 Est 20min
[2024-12-22] MEDS: Budesonide Respules 0.5 MG/2 ML AMPUL.NEB. INHALATION (20:35)
[2024-12-22] MEDS: Senna/Docusate Sodium 1 Tablet 2 TABLET PO (21:55)
[2024-12-23 01:41] VITALS: BP 126/66; PULSE 81; RESP 15; TEMP 36.6; O2SAT 93
[2024-12-23] MEDS: Cefazolin 1 GM/50 ML BAG IV (01:47)
[2024-12-23 05:39] LABS: Hematocrit 39.9 % (37-47); Hemoglobin 13.6 g/dL (12.0-15.0); Mean Corp Hgb Conc 34.1 g/dL (32-36); Mean Corpuscular Volume 90.9 fL (81-99); Mean Platelet Vol. 9.8 fl (6.2-12.0); Platelet Count 182 K/mm3 (150-450); RBC Distribution Width CV 13.1 % (11.6-14.6); RBC Distribution Width SD 43.7 fl (35.1-43.9); Red Blood Count 4.39 M/mm3 (4.2-5.4); White Blood Count 12.5 K/mm3 (4.4-11.0)
[2024-12-23 06:30] LABS: Anion Gap 14 (5-15); BUN 12 mg/dL (4-19); BUN/Creat Ratio 16.5 RATIO (10-20); Calcium,Total 9.0 mg/dL (7.6-11.0); Carbon Dioxide 19.3 mmol/L (21.0-32.0); Chloride 103 mmol/L (98-108); Estimated Creatinine Clearance 63.49 ml/min (50-250); Glucose 255 mg/dL (70-99); Potassium 4.2 mmol/L (3.3-5.1)
[2024-12-23] MEDS: Budesonide Respules 0.5 MG/2 ML AMPUL.NEB. INHALATION (06:59)
[2024-12-23 07:00] VITALS: PULSE 79; RESP 16; O2SAT 96
[2024-12-23 07:30] VITALS: BP 128/60; PULSE 76; RESP 17; TEMP 36.6; O2SAT 93
[2024-12-23] MEDS: Senna/Docusate Sodium 1 Tablet 2 TABLET PO (08:55)
--- NOTE | 2024-12-23 11:46 | PCM.PN.ORT ---
Documented by User: MARLO Ambrocio 12/23/24 17:00 Subjective Subjective Patient is s/p robotic assisted right total knee arthroplasty with Dr. Gomez 12/22/2024. Patient resting comfortably in bed. Rates pain 7/ 10 at rest. With movement 8/10. States taking Tylenol and oxycodone and ice help to relieve pain. Patient has been up with therapy. Walking with the assit of a walker. Afebrile, no chest pain, shortness of breath, negative calf pain/ erythema, and no other signs of DVT. Patient is apprehensive about returning home and following. Objective Data Objective Data Vital Signs: Vital Signs Temp Pulse Resp BP Pulse Ox O2 Del Method O2 Flow Rate 97.8 F 76 17 128/60 H 93 Room Air 4 12/23/24 07:30 12/23/24 07:30 12/23/24 07:30 12/23/24 07:30 12/23/24 07:30 12/23/24 07:30 12/22/24 13:57 Oxygen Flow Rate (L/min) 4 Oxygen Delivery Method Room Air Weight: 86 kg Body Mass Index (BMI) 32.5 Intake & Output: Intake and Output for Last 24 Hours 12/21/24 12/22/24 12/23/24 23:59 23:59 23:59 Intake Total 2050 / 2350 1350 / 1350 Output Total 50 / 50 150 / 150 Balance 2000 / 2300 1200 / 1200 Lab / Micro Data 12/23/24 05:30 12/23/24 05:30 Labs: Laboratory Results - last 24 hr 12/22/24 22:00: POC Glucose 358 H 12/23/24 05:30: WBC 12.5 H, RBC 4.39, Hgb 13.6, Hct 39.9, MCV 90.9, MCH 31.0, MCHC 34.1, RDW Std Deviation 43.7, RDW Coeff of Felix 13.1, Plt Count 182, MPV 9.8, Sodium 136, Potassium 4.2, Chloride 103, Carbon Dioxide 19.3 L, Anion Gap 14, BUN 12, Creatinine 0.72, Estim Creat Clear Calc 63.49, Est GFR (MDRD) Non-Af 87, BUN/Creatinine Ratio 16.5, Glucose 255 H, Calcium 9.0 12/23/24 06:37: POC Glucose 237 H Micro: Microbiology 11/25/24 10:02 Swab (Method) Nasal Screen MRSA/MSSA - Final Physical Exam Narrative Patient resting comfortably in bed No signs of acute distress Satting well on room air Limb is warm to touch, Sensation intact throughout entire lower extremity, including saphenous, sural, superficial and deep peroneal, and tibial distribution. DP/PT pulses bounding. Dorsiflexion plantarflexion strength 5/5 Dressing clean dry intact Calf nontender to palpation, no erythema, no edema. Negative Homans Assessment & Plan Assessment/Plan (1) S/P total knee arthroplasty: PLAN: Postop day 1 status post robotic assisted right total knee arthroplasty seen 12/22/2024. 1. Will continue PT today. Weightbearing as tolerated 2. plan for discharge is pending. Patient is apprehensive about returning home and has no one at home to help her.. Pain control is not optimized at this point in time either. Patient would likely benefit from another day in the hospital. 3. Patient will follow up for post op appointment in 2 weeks as previously scheduled 4. Patient has outpatient PT appointment as previously scheduled in 2 to 3 days 5. WBC 12.5 acute reactive leukocytosis: secondary to pre operative decadron. no acute systemic signs of infection. will monitor, and likely self resolve. 6. H/H 13.7/39.9: No post operavtive anemia 7. DVT prophylaxis : Resume Coumadin as previously scheduled. 8. Pain control: patient instructed to take tylenol 500mg 2 tablets TID. and oxycodone 1-2 tablets every 4-6 hours only as needed for pain control. 9. Patient also given a prescription of Pepcid, senna 10. ok to remove post op dressing. post op day 5 Documented by User: Dr. Yossi Gomez DO 12/23/24 16:26 Objective Data Lab / Micro Data 12/23/24 05:30 08/12/25 05:30 Assessment & Plan Assessment/Plan (1) S/P total knee arthroplasty: PLAN: Postop day 1 status post robotic assisted right total knee arthroplasty seen 12/22/2024. 1. Will continue PT today. Weightbearing as tolerated 2. plan for discharge is pending. Patient is apprehensive about returning home and has no one at home to help her.. Pain control is not optimized at this point in time either. Patient would likely benefit from another day in the hospital. 3. Patient will follow up for post op appointment in 2 weeks as previously scheduled 4. Patient has outpatient PT appointment as previously scheduled in 2 to 3 days 5. WBC 12.5 acute reactive leukocytosis: secondary to pre operative decadron. no acute systemic signs of infection. will monitor, and likely self resolve. 6. H/H 13.7/39.9: No post operavtive anemia 7. DVT prophylaxis : Resume Coumadin as previously scheduled. 8. Pain control: patient instructed to take tylenol 500mg 2 tablets TID. and oxycodone 1-2 tablets every 4-6 hours only as needed for pain control. 9. Patient also given a prescription of Pepcid, senna 10. ok to remove post op dressing. post op day 5 Agree with above. Contacted by RN stating patient is walking without assistance and is requesting home DC. Plan for home dc with outpatient PT as scheduled.
[2024-12-23 14:00] VITALS: BP 117/59; PULSE 80; RESP 16; TEMP 36.9; O2SAT 93
--- NOTE | 2024-12-23 15:06 | PCM.PN.HOSP ---
Subjective Subjective Doing well, pain is controlled. No issues overnight. She does have a reactive leukocytosis Objective Data Objective Data Vital Signs: Vital Signs Temp Pulse Resp BP Pulse Ox O2 Del Method O2 Flow Rate 98.4 F 80 16 117/59 L 93 Room Air 4 12/23/24 14:00 12/23/24 14:00 12/23/24 14:00 12/23/24 14:00 12/23/24 14:00 12/23/24 14:00 12/22/24 13:57 Oxygen Flow Rate (L/min) 4 Oxygen Delivery Method Room Air Weight: 189 lb 9.561 oz Body Mass Index (BMI) 32.5 Intake & Output: Intake and Output for Last 24 Hours 12/22/24 12/23/24 12/24/24 03:59 03:59 03:59 Intake Total 3400 / 3400 Output Total 50 / 50 150 / 150 Balance 3350 / 3350 -150 / -150 Lab / Micro Data 12/23/24 05:30 12/23/24 05:30 Labs: Laboratory Results - last 24 hr 12/22/24 22:00: POC Glucose 358 H 12/23/24 05:30: WBC 12.5 H, RBC 4.39, Hgb 13.6, Hct 39.9, MCV 90.9, MCH 31.0, MCHC 34.1, RDW Std Deviation 43.7, RDW Coeff of Felix 13.1, Plt Count 182, MPV 9.8, Sodium 136, Potassium 4.2, Chloride 103, Carbon Dioxide 19.3 L, Anion Gap 14, BUN 12, Creatinine 0.72, Estim Creat Clear Calc 63.49, Est GFR (MDRD) Non-Af 87, BUN/Creatinine Ratio 16.5, Glucose 255 H, Calcium 9.0 12/23/24 06:37: POC Glucose 237 H 12/23/24 11:38: POC Glucose 268 H Micro: Microbiology 11/25/24 10:02 Swab (Method) Nasal Screen MRSA/MSSA - Final Physical Exam Narrative General: Alert, Oriented x3, Cooperative, No apparent distress HEENT: Atraumatic, PERRLA, EOMI, Normocephalic Oral: Moist Mucosa Neck: Supple, No JVD Lungs: Diminished, Normal air movement, No rhonchi, No wheeze, No rales Cardiovascular: Regular rate, Regular Rhythm, Normal S1, Normal S2, No murmurs Abdomen: Soft, Non Tender, Non-Distended, No Hepato-splenomegaly Extremities: No edema, Capillary Refill Less than 3 Seconds Skin: Right knee dressing intact Musculoskeletal: No Tenderness to Palpation of Joints or Extremities Neurological: No focal neurological deficits, Motor Exam 5/5 strength throughout, Sensory exam intact to light touch and pain Psych/Mental Status: Normal Affect, Appropriate Assessment & Plan Assessment/Plan (1) Diabetes: PLAN: Plan 1. Type 2 diabetes mellitus -Accu-Cheks ACHS and sliding scale insulin ? Will monitor make adjustments as necessary 2. History of A-fib - Resume Coumadin at discretion of primary, outpatient monitoring for INR - Patient on diltiazem, holding parameters added given blood pressure little soft, patient asymptomatic 3. Depression/anxiety -Continue home medications 4. History of asthma vs COPD -Continue home inhalers -Incentive spirometer -Follows w/ Dr. Dimas on outpt basis 5. Hypothyroidism -Continue Synthroid ? Stable 6. Right knee osteoarthritis -Status post robotic arm assisted right total knee arthroplasty 12/22/[address] Gomez -Management/pain management per primary ? Medically stable for discharge DVT: Coumadin Will sign off, please call with questions Charges/Coding Visit Charges Office Visits / Consults: 03160 OV L3 Est 20min
--- NOTE | 2024-12-23 15:24 | CASEMGMT ---
Addendum entered by Akiko Thompson 12/23/24 15:48: SW received a return call from Ramesh Rmoero reporting that pt will remain hospitalized overnight. CLAUDY updated RNCM and pt. GAMAL Newton Original Note: Social Work- SW met with pt and pt sister. Pt reports that she wants to d/c today with [facility]. Pt will then transition to OP therapy. Pt reports that she does not feel she can d/c direct to OP therapy due to needing to get in and out of vehicles and being unable to drive. Pt reports that she feels that she will be better able to navigate travel to OP therapy following additional therapy at home. RNCM to provide pt with a HHC list. CLAUDY called Ramesh Romero to update physician on d/c plan. CLAUDY remains available to follow. GAMAL Newton
--- NOTE | 2024-12-23 15:37 | CASEMGMT ---
Addendum entered by Ana Griggs 12/23/24 15:46: Pt states [facility] choice is [facility]. TC to [facility], left vm with referral. Original Note: SW made aware that pt would like [facility]. RN CM into pt room. Pt states she would like 2 wks of C then will do outpt therapy. Patient was provided a list of [facility] providers including quality and resource use data and consistent with the patient?s preferred geographic region, medical needs, and insurance network were provided from the [employer] Guide. Pt to review and RN CM to check back for top 3 choices.
--- NOTE | 2024-12-23 16:12 | CASEMGMT ---
DAMON Met with patient to complete DAMON form. DAMON form and its content were verbally explained and patient's questions were answered to the best of my ability.? Patient voiced understanding and signed DAMON form.? Patient provided a copy of signed DAMON form and original placed in patient's chart.? Patient had no further questions. Britta Rolle, Discharge Planning Asst
--- NOTE | 2024-12-23 16:30 | DCINST_ITS ---
Discharge Instructions DC O2, CPAP, BIPAP needs Home O2 Discharge instructions: No Follow Up Care Test Results: Test results from this visit will be discussed in further detail at your follow- up appointment, if applicable. Discharge Plan Admission Admit Date/Time: 12/22/24 12:20 Primary Reason for Your Visit: Right knee replacement Attending Provider: Yossi Gomez Primary Care Provider: Adrian Rico Consulting Providers: Yossi Riley Instructions Additional Instructions / Restrictions: Follow preprinted instructions from Dr. Gomez's office. Recheck INR lab work needs checked 12/24 Discharge Orders/Prescriptions Prescriptions: New acetaminophen 500 mg Tablet 1,000 mg PO Q8 30 Days Qty: 180 0RF oxycodone 5 mg Tablet 5 - 10 mg PO Q4H PRN PRN (Reason: Pain Score 4-10) 7 Days Qty: 42 0RF Continued warfarin 2 mg tablet 6 mg PO DAILY Patient Comments: TAKE 3 TABS DAILY OR DIRECTED PER [facility] Rx Instructions: STOP 4 DAYS PRIOR TO OR calcium citrate 500 mg Tablet, Effervescent 500 mg PO DAILY furosemide 20 mg tablet 20 mg PO DAILY escitalopram oxalate 10 mg tablet 10 mg PO DAILY Patient Comments: TAKE 1 TABLET BY MOUTH EVERY DAY rosuvastatin 10 mg tablet 10 mg PO DAILY cholecalciferol (vitamin D3) 50 mcg (2,000 unit) tablet 50 mcg PO DAILY Patient Comments: TAKE 1 TABLET BY MOUTH EVERY DAY fluticasone furoate [Arnuity Ellipta] 100 mcg/actuation blister with device 1 inh inhalation DAILY levothyroxine 75 mcg tablet 75 mcg PO DAILY diltiazem HCl [Matzim LA] 300 mg tablet extended release 24 hr 300 mg PO DAILY Rybelsus 7 mg tablet 7 mg PO DAILY Patient Comments: LAST DOSE PRIOR TO OR IS 12/19/24 docusate sodium 100 mg capsule 100 mg PO DAILY escitalopram oxalate 5 mg tablet 5 mg PO DAILY cyanocobalamin (vitamin B-12) [Vitamin B-12] 1,000 mcg tablet extended release 2,000 mcg PO DAILY Referrals / Follow Up: Adrian Rico DO [Primary Care Provider] - Yossi Gomez DO [Med Staff - Active Staff] - Disposition Disposition (needs filled in before D/C Order can be placed): Home, Self Care
--- NOTE | 2024-12-24 09:53 | CASEMGMT ---
Noted pt dc'd last evening. TC received from Sophie at [facility], they can accept pt for SOC tomorrow. She will reach out to pt to make aware. She is also going to request SN be added to referral from .
== END 2024-12-23 17:41 | disposition home or self-care (01) ==
LOC: SDC 16:35 → MS3 16:35
PROVIDERS: Anesthesiology; Admitting Provider Student in an Organized Health Care Education/Training Program; PCP Student in an Organized Health Care Education/Training Program; Referring Provider Student in an Organized Health Care Education/Training Program; Visit Provider Student in an Organized Health Care Education/Training Program
PROC: 0SRC0JZ Replacement of Right Knee Joint with Synthetic Substitute, Open Approach (ICD-10-PCS; CPT 27447; principal; 2024-12-22 10:00)
DX: M17.11 Unilateral primary osteoarthritis, right knee (principal); J44.9 Chronic obstructive pulmonary disease, unspecified; I48.91 Unspecified atrial fibrillation; E11.9 Type 2 diabetes mellitus without complications; I10 Essential (primary) hypertension; E78.00 Pure hypercholesterolemia, unspecified; F41.9 Anxiety disorder, unspecified; F32.A Depression, unspecified; G47.33 Obstructive sleep apnea (adult) (pediatric); H91.90 Unspecified hearing loss, unspecified ear; Z79.890 Hormone replacement therapy; Z79.01 Long term (current) use of anticoagulants; Z79.899 Other long term (current) drug therapy; Z79.84 Long term (current) use of oral hypoglycemic drugs; Z87.442 Personal history of urinary calculi
CPT/HCPCS: 27447; 01402; 36415; 36416; 80048; 82040; 82962; 83036; 83735; 84443; 85025; 85027; 85610; 87081; 93005; 94640; 94668; 96365; 96366; 97162; 97166; 99221; C1776; G0378; J3475

== ENCOUNTER 2025-03-26 05:37 | Day surgery (SDC) | payer MEDICARE, OTHER, SELFPAY ==
--- NOTE | 2025-03-21 12:32 | PAT.ANESEVAL ---
Pre-Assessment Diagnosis/Proposed Procedure Planned Operative Procedure(s): RIGHT TOTAL KNEE ARTHROPLASTY MANIPULATION UNDER ANESTHESIA Anesthesia History Anesthesia History - babcock tester: Anesthesia History - babcock tester Hx Hospitalization No 03/20/25 13:50 Any Problems With Anesthesia No 03/20/25 13:50 Cholinesterase deficiency No 03/20/25 13:50 You/Your Family Experience No 03/20/25 13:50 fever (hyperthermia) with Relationship Recent Exposure to Contagious No 12/22/24 08:42 Disease Does patient have nerve No 03/20/25 13:50 stimulator Patient instructed to have device shut off --Does patient have Pacemaker or ICD? When Was Last Pacemaker Check QUESTION #4 FULL TEXT: You/Your Family Experience fever (hyperthermia) with Anesthesia Last Oral Intake Last Oral intake: Last Oral Intake NPO since Meds taken in AM with sips of water? Meds patient instructed to take am of surgery PONV PONV - babcock tester: PONV - babcock tester Female Yes 03/20/25 13:50 HX of Motion Sickness No 03/20/25 13:50 HX of N/V After Surgery No 03/20/25 13:50 Non-Smoker Yes 03/20/25 13:50 Duration of Surgery greater No 03/20/25 13:50 than 60 minutes Number of Risk Factors 2 03/20/25 13:50 PONV Score Moderate Risk 03/20/25 13:50 Height & Weight Height & Weight: Anesthesia: Height & Weight Height 5 ft 4 in 12/22/24 16:48 Respiratory Assessment Respiratory Assessment - babcock tester: Respiratory Tract Infection Hx - babcock tester Hx Respiratory Tract Infection No 03/20/25 13:50 STOP Sleep Apnea STOP Sleep Apnea - babcock tester: STOP Sleep Apnea - babcock tester Hx Hypertension Yes: CONTROLLED WITH MED 03/20/25 13:50 Hx Sleep Apnea Yes 03/20/25 13:50 CPAP Yes 03/20/25 13:50 BIPAP No 03/20/25 13:50 Do you snore loudly (louder than talking or can be heard Do you often feel tired/ fatigued/ sleepy during daytime? Has anyone observed you stop breathing during sleep? STOP Results Positive 03/20/25 13:50 QUESTION #5 FULL TEXT : Do you snore loudly (louder than talking or can be heard through closed doors)? Tobacco Use History Tobacco Use History - babcock tester: Tobacco Use History - babcock tester Tobacco Use Smoking Status Never smoker 03/20/25 13:50 Hx Tobacco Use No 03/20/25 13:50 Years Smoking Packs Smoked per Day Smoking Cessation Date was within the last 15 years Hx Smoking Cessation Date Hx Smoking Cessation Counseling Hematologic Medial History Hematologic Hx - babcock tester: Hematologic Medical Hx - supervisor cereal Hx of Blood Transfusion No 03/20/25 13:50 Hx of Transfusion in last 3 No 03/20/25 13:50 Months Date of Last Transfusion (if within last 3 months) Ever experience any problems No 03/20/25 13:50 with transfusion(s)? Specify any problems Hx of Preganancy in last 3 No 03/20/25 13:50 Months Nurse Filling Out Transfusion DSCHRIBER 03/20/25 13:50 & Questions: Date: 03/20/25 03/20/25 13:50 Time: 13:51 03/20/25 13:50 Patient unable to answer at this time (ie. confused, unrespo /Reproduction History /Reproductive History - babcock tester: /Reproductive Hx- babcock tester Hx Now No 03/20/25 13:50 Gestational Age (in weeks): EDC: Hx Hx Para Hx Section SAB No 03/20/25 13:50 Does the father of the baby or his family experience fever w Father of the baby Malignant Hypertension history comment [facility] Medical History (Updated 03/20/25 @ 13:58 by Julianne Mccauley) History of echocardiogram Post-menopausal Diabetes Left ureteral stone PONV (postoperative nausea and vomiting) Wears hearing aid Wears glasses Thyroid disease Arthritis High cholesterol History of IBS CPAP (continuous positive airway pressure) dependence Hypertension Cardiology follow-up encounter History of atrial fibrillation Home Medications Medication Instructions Recorded Last Taken Type calcium citrate 500 mg (2,376 mg) 500 mg PO DAILY 12/21/21 12/19/24 History effervescent tablet cholecalciferol (vitamin D3) 50 50 mcg PO DAILY 12/21/21 12/19/24 History mcg (2,000 unit) tablet escitalopram oxalate 10 mg tablet 20 mg PO DAILY 12/21/21 12/21/24 History furosemide 20 mg tablet 20 mg PO DAILY 12/21/21 12/21/24 History rosuvastatin 10 mg tablet 10 mg PO DAILY 12/21/21 12/21/24 History warfarin 2 mg tablet 6 mg PO DAILY 12/21/21 03/19/25 History cyanocobalamin (vitamin B-12) 2,000 mcg PO DAILY 11/24/24 12/19/24 History 1,000 mcg tablet,extended release (Vitamin B-12 ER) diltiazem HCl 300 mg 300 mg PO DAILY 11/24/24 12/22/24 06:00 History tablet,extended release 24 hr (Matzim LA) docusate sodium 100 mg capsule 100 mg PO DAILY PRN constipation 11/24/24 Unknown History levothyroxine 75 mcg tablet 75 mcg PO DAILY 11/24/24 12/22/24 06:00 History semaglutide 7 mg tablet (Rybelsus) 7 mg PO DAILY 11/24/24 03/20/25 History Allergy/AdvReac Type Severity Reaction Status Date / Time cortisone Allergy Severe Other Verified 12/22/24 09:36 Nitrate Analogues Allergy Severe Other Verified 12/22/24 09:36 erythromycin base Allergy Upset Verified 12/22/24 09:36 Stomach Penicillins (PCN) Allergy Swelling Verified 12/22/24 09:36 Sulfa (Sulfonamide AdvReac Intermediate Diarrhea Verified 03/20/25 13:42 Antibiotics) Surgical History (Updated 03/20/25 @ 13:58 by Julianne Mccauley) Hx of total knee arthroplasty History of cardiac catheterization History of partial hysterectomy Hx of total hip arthroplasty Hx of cystoscopy History of heart surgery History of hip replacement History of back surgery Hx of parathyroidectomy Social History Smoking Status: Never smoker Audit: Pertinent Findings Pertinent Findings EKG Perinent findings: 11/25/2024. Atrial fibrillation. ST and T wave abnormality consider anterior ischemia or digitalis effect. Prolonged QT. Echo (EF%) pertinent findings: 03/17/2024. EF of 50 to 55%. Mild aortic stenosis. RVSP is 40 to 50 mmHg. Recommendation Anesthesia Recommendation Anesthesia recommendation: OPTIMIZED for anesthesia (Patient is being cleared because she did well with original knee surgery. She does have mild aortic stenosis. Avoid increased heart rate or decrease blood pressure. Use phenylephrine as drug of choice.)
[2025-03-26] VITALS (10 sets, daily range): BP systolic 131–142; BP diastolic 63–85; PULSE 80–93; RESP 16–18; TEMP 36.6; O2SAT 92–96; BMI 32.1
--- OUTSIDE RECORDS SUMMARY | 2025-03-26 05:41 | XMS RPT_ITS | CCD ---
Author Organization [facility] Care Team Providers Care Curtain Cleaner Name Role Phone VERNON OLVERA Unavailable Unavailable John Yungneth Unavailable Unavailable Gross-Sawicka, Mari M Unavailable Unavailable Gross-Sawicka, Mari M Unavailable Unavailable Eda, Babu M Unavailable Unavailable Vernon Olvera Y Unavailable Unavailable Tito Jeuss Unavailable Unavailable Anshu Damon Unavailable Unavailable Foreign Ellington Unavailable Unavailable Foreign [place] Unavailable Unavailable Unavailable RAKEL LIZARRAGA, DR CAMPBELL Primary Care Physician [phone] Enio PT, Stella Unavailable Unavailable Nekl, Dr. Kris Smith Referring Unavailab le Nekl, Dr. Kris Smith Attending Unavailab le Nekl, Dr. Kris Smith Attending Unavailab le Romar Foreign E Referring Unavailable Zanotti, Dr. Maximiliano Mart Attending Unav ailable Zanotti, Dr. Maximiliano Mart Attending Unav ailable Zanotti, Dr. Maximiliano Mart Attending Unav ailable ROMAR DO, DR CAMPBELL Primary Care Unavailable LUPIS FERGUSON MD Attending Unavaila ble ROMAR DO, DR CAMPBELL Primary Care Unavailable MARCELO VAUGHAN Attending Unavaila ble ROMAR DO, DR CAMPBELL Primary Care Unavailable LUPIS FERGUSON MD Attending Unavaila ble ROMAR DO, DR CAMPBELL Primary Care Unavailable LUPIS FERGUSON MD Attending Unavaila ble ROMAR DO, DR CAMPBELL Primary Care Unavailable BRITT JAMES CNP Attending Unavailable ROMAKANKSHA DO, DR CAMPBELL Primary Care Unavailable LUPIS FERGUSON MD Attending Unavaila ble ROMAR DO, DR CAMPBELL Primary Care Unavailable VELIA RAMIREZ-ADDIS WILSON Attending Unavai lable ROMAR DO, DR CAMPBELL Primary Care Unavailable ROMAR DO, DR CAMPBELL Attending Unavailable ROMAR DO, DR CAMPBELL Primary Care Unavailable ERIKA TEMPERATURE REGULATOR PYROMETER, BRITT Attending Unavailable ROMAR DO, DR CAMPBELL Primary Care Unavailable SEFFENS QUALITY ASSURANCE ADVISOR-TEMPERATURE REGULATOR PYROMETER, ADDIS Attending Unavai lable ROMAR DO, DR CAMPBELL Primary Care Unavailable SEFFENS QUALITY ASSURANCE ADVISOR-TEMPERATURE REGULATOR PYROMETER, ADDIS Attending Unavai lable ROMAR DO, DR CAMPBELL Primary Care Unavailable MARTY SHANKAR, LUPIS Attending Unavaila ble ROMAR DO, DR CAMPBELL Primary Care Unavailable VINICIUS SHANKAR, SANDY Shelton Attending Unavail able ROMAR DO, DR CAMPBELL Primary Care Unavailable ERIKA TEMPERATURE REGULATOR PYROMETER, BRITT Attending Unavailable ROMAR DO, DR CAMPBELL Primary Care Unavailable ROMAR DO, DR CAMPBELL Attending Unavailable ROMAR DO, DR CAMPBELL Primary Care Unavailable ROMAR DO, DR CAMPBELL Attending Unavailable ROMAR DO, DR CAMPBELL Primary Care Unavailable SEFFENS QUALITY ASSURANCE ADVISOR-TEMPERATURE REGULATOR PYROMETER, ADDIS Attending Unavai lable ROMAR DO, DR CAMPBELL Primary Care Unavailable ROMAR DO, DR CAMPBELL Attending Unavailable ROMAR DO, DR CAMPBELL Primary Care Unavailable ROMAR DO, DR CAMPBELL Attending Unavailable ROMAR DO, DR CAMPBELL Primary Care Unavailable SPITTLE DO, YOSSI Attending Unavailable ROMAR DO, DR CAMPBELL Primary Care Unavailable ROMAR DO, DR CAMPBELL Attending Unavailable ROMAR DO, DR CAMPBELL Primary Care Unavailable MARTY SHANKAR, LUPIS Attending Unavaila ble Romar DO, Dr. Campbell Primary Care Provider Doug SHANKAR, Dr. Molina Attending Provider Dr. Riri Tavarez MD Attending Provider Jason LIZARRAGA, Dr. Sy Referring Provider Jason LIZARRAGA, Dr. Sy Admit Provider Jason LIZARRAGA, Dr. Sy Attending Provider Osvaldo SHANKAR, Dr. Yossi Rahman Other Provider Jason LIZARRAGA, Dr. Sy Other Provider [facility] , Dr. Paredes Other Provider Derek SHANKAR, Dr. Cox Attending Provider Osvaldo SHANKAR, Dr. Yossi Rahman Attending Provider RAKEL DO, DR CAMPBELL Primary Care Unavailable ROMAR DO, DR CAMPBELL Attending Unavailable ROMAR DO, DR CAMPBELL Primary Care Unavailable MARTY SHANKAR, LUPIS Attending Unavaila ble ROMAR DO, DR CAMPBELL Attending Unavailable ROMAR DO, DR CAMPBELL Primary Care Unavailable ROMAR DO, DR CAMPBELL Primary Care Unavailable DITCHEY DO, STELLA Porras Attending Unavailable ROMAR DO, DR CAMPBELL Attending Unavailable ROMAR DO, DR CAMPBELL Primary Care Unavailable ROMAR DO, DR CAMPBELL Primary Care Unavailable VINICIUS SHANKAR, SANDY Shelton Attending Unavail able FACUNDO SHANKAR, HERNAN Attending Unavailable ROMAR DO, DR CAMPBELL Primary Care Unavailable ROMAR DO, DR CAMPBELL Primary Care Unavailable ROMAR DO, DR CAMPBELL Attending Unavailable ROMAR DO, DR CAMPBELL Primary Care Unavailable ROMAR DO, DR CAMPBELL Attending Unavailable ROMAR DO, DR CAMPBELL Primary Care Unavailable ROMAR DO, DR CAMPBELL Attending Unavailable ROMAR DO, DR CAMPBELL Primary Care Unavailable MARTY SHANKAR, LUPIS Attending Unavaila ble ROMAR DO, DR CAMPBELL Primary Care Unavailable SPITTLE DO, YOSSI Attending Unavailable ROMAR DO, DR CAMPBELL Primary Care Unavailable SPITTLE DO, YOSSI Attending Unavailable ROMAR DO, DR CAMPBELL Attending Unavailable ROMAR DO, DR CAMPBELL Primary Care Unavailable TED ANSARI MD Referring Unavailable PROVIDER, UNKNOWN J Primary Care Unavailable PROVIDER, [...] MD Referring Unavailabl e ANSHU DAMON MD Referring Unavailabl e PROVIDER, UNKNOWN J Primary Care Unavailable ANSHU DAMON MD Referring Unavailabl e PROVIDER, UNKNOWN J Primary Care Unavailable PROVIDER, UNKNOWN J Primary Care Unavailable ANSHU DAMON MD Referring Unavailabl e ANSHU DAMON MD Referring Unavailabl [...] Unavailable PROVIDER, UNKNOWN J Primary Care Unavailable PROVIDER, [...] e PROVIDER, UNKNOWN J Primary Care Unavailable Foreign [place] Primary Care Unavailable Riri Tavarez Attending Unavailable SpittleYossi Referring Unavailable Yossi Riley Consulting Unavailable Foreign [place] Primary Care Unavailable Yossi Burnette Attending Unavailable SpittYossi salvador Referring Unavailable Yossi Burnette Admitting Unavailable JunitottYossi salvador Attending Unavailable Foreign [place] Primary Care Unavailable Foreign [place] Primary Care Unavailable Reggie Pathak Consulting Unavailable JunitottYossi salvador Referring Unavailable SpittleYossi Admitting Unavailable Brooke Reed Attending Unavailable Yossi Burnette Consulting Unavailable Yossi Riley Attending Unavailable Yossi Riley Consulting Unavailable Allergies Allergy Classification Reported Allergen(s) Allergy Type Date of Onset Reaction(s) Facility Macrolides (antibiotic) (3 sources) Erythromycin; Translations: [erythromycin] Drug Allergy [facility] Work Phone: Penicillins (antibiotic) (3 sources) Penicillins; Translations: [Penicillins] Drug Allergy [facility] Work Phone: (20 sources) Erythromycin; Translations: [Erythromycin] Drug Allergy Nausea [facility] Work Phone: (14 sources) Penicillins; Translations: [Penicillins] Allergy to drug (finding) [facility] Work Phone: (20 sources) Penicillin; Translations: [penicillin] Drug Allergy [facility] (4 sources) Erythromycin Drug Allergy 2 Upset Stomach [facility] (4 sources) Penicillins Allergy to substance 2 Swelling [facility] (18 sources) Cortisone; Translations: [cortisone] Drug Allergy 5 Irregular heart beat (finding) [facility] Comment on above: RAPID HR (1 source) Nitrate Analogues Allergy to substance 5 Other [facility] (3 sources) Sulfonamide; Translations: [sulfa drugs] Drug allergy sulfa [facility] (1 source) Cortisone Drug Allergy 5 [facility] Repository (1 source) Erythromycin Drug Allergy 5 [facility] (1 source) Penicillins Drug allergy (disorder) 5 [facility] Rep[facility] (1 source) Sulfonamides (Antibiotic) Drug allergy (disorder) 5 [facility] (1 source) Nitrate Analogues Drug allergy (disorder) 5 [facility] Repository Medications Current Medications Medication Drug Class(es) Dates Sig (Normalized) Sig (Original) acetaminophen 500 mg oral tablet (20 sources) Start: 12-23-2024 take 2 tablets by mouth every eight hours Acetaminophen 500 mg Tablet Active 1000 mg PO EVERY 8 HOURS 180 30 0 December 23, 2024 12:00am Start: 02-16-2022 Tylenol Extra Strength 500 mg oral tablet Dose : 500 mg = 1 tab(s), Oral, q4h, PRN as needed for fever, # 60 tab(s), 0 Refill(s) Start Date: 02/16/22 Status: Ordered Medication Dispense Status: Completed Quantity: 60.0 Unit: tab(s) Total Allowed Fills: 1 Fills Dispensed: 0 Start: 02-16-2022 Tylenol Oral, 0 Refill(s) Start Date: 02/16/22 Status: Ordered acetaminophen 325 mg / HYDROcodone bitartrate 5 mg oral tablet (4 sources) Opioid Agonist Start: 11-27-2024 End: 11-30-2024 take 1 tablet by mouth every six hours as needed for pain Ramona 325- 5 mg oral tablet Dose = 1 tab(s), Oral, q6h, PRN As needed for severe pain, X 3 day(s), # 12 tab(s), 0 Refill(s), Acute low back pain, 85 Start Date: 11/27/24 Stop Date: 11/30/24 Status: Ordered Quantity: 12.0 Unit: tab(s) Repeat number: 1 Indications: Low back pain, unspecified; Start: 12-02-2021 HYDROcodone-Ac etaminophen 5-325 MG Oral Tablet Quantity: 15 Refills: 0 Ordered: 02-Dec-2021 DO Start : 02-Dec-2021 Complete Start: 12-02-2021 End: 12-07-2021 take 1 tablet by mouth every four hours as needed for pain Ramona 325- 5 mg oral tablet Dose = 1 tab(s), Oral, q4h, PRN for pain, X 5 day(s), # 15 tab(s), 0 Refill(s), Ureteral calculus, 97 Start Date: 12/02/21 Stop Date: 12/07/21 Status: Ordered Acidophilus Probiotic Blend oral capsule (1 source) Start: 03-13-2024 Acidophilus Probiotic Blend oral capsule 1 caps, ORAL, DAILY, Date: 03/13/24 11:55:00 AM EDT Start Date: 03/13/24 Status: Ordered Repeat number: 1 Albuterol (20 sources) beta2-Adrenerg ic Agonist Start: 05-09-2019 take 2 puff(s) by inhalation every four hours as needed for wheezing Ventolin HFA MDI (90 mcg/inh) inhalation aerosol 2 puff(s), Inhalation, q4h, PRN as needed for wheezing, # 8 gram(s), 0 Refill(s) Start Date: 05/09/19 Status: Ordered Start: 04-27-2016 take 1-2 puff(s) by inhalation every four to six hours as needed ProAir HFA 108 (90 Base) MCG/ACT AERS INHALE 1 TO 2 PUFFS EVERY 4 TO 6 HOURS NEEDED. Quantity: 1 Refills: 3 Ordered: 27-Apr-2016 Bonnie SHANKAR, Mari Porras Start : 27-Apr-2016 Active Start: 04-27-2016 take 1-2 puff(s) by inhalation every four to six hours as needed ProAir HFA 108 (90 Base) MCG/ACT Inhalation Aerosol Solution INHALE 1 TO 2 PUFFS EVERY 4 TO 6 HOURS NEEDED. Quantity: 1 Refills: 3 Bonnie SHANKAR, Mari M Start : 27-Apr-2016 Active 8.5 GM Inhaler Arnuity Ellipta 100 mcg/inh inhalation powder (15 sources) Start: 01-26-2025 Arnuity Ellipt a 100 mcg/inh inhalation powder mcg inh, Inhalation, [id number], Date: 01/26/25 11:02:00 AM EDT Start Date: 01/26/25 Status: Ordered Medication Dispense Status: Completed Total Allowed Fills: 1 Fills Dispensed: 0 Start: 01-26-2025 Arnuity Ellipt a 100 mcg/inh inhalation powder mcg inh, Inhalation, [id number], Date: 01/26/25 11:02:00 AM EDT Start Date: 01/26/25 Status: Ordered Repeat number: 1 Start: 10-30-2024 take 1 dose by inhal ation every twenty-four hours Arnuity Ellipta 100 mcg/inh inhalation powder Dose : 100 mcg = 1 inh, q24h, 0 Refill(s) Start Date: 10/30/24 Status: Ordered Medication Dispense Status: Completed Total Allowed Fills: 1 Fills Dispensed: 0 Start: 10-30-2024 take 1 dose by inhal ation every twenty-four hours Arnuity Ellipta 100 mcg/inh inhalation powder Dose : 100 mcg = 1 inh, q24h, 0 Refill(s) Start Date: 10/30/24 Status: Ordered Repeat number: 1 Breo Ellipta 200 mcg-25 mcg/ inh inhalation powder (20 sources) Start: 03-13-2024 Breo Ellipta 2 00 mcg-25 mcg/inh inhalation powder 1 puffs, Inhalation, DAILY, Date: 03/13/24 11:57:00 AM EDT Start Date: 03/13/24 Status: Ordered Repeat number: 1 Start: 07-05-2021 take 1 puff(s) by mo uth once daily Breo Ellipta 200 mcg-25 mcg/inh inhalation powder TAKE 1 PUFF BY MOUTH EVERY DAY Start Date: 07/05/21 Status: Ordered Repeat number: 1 Start: 07-05-2021 take 1 puff(s) by mo [facility] once daily Breo Ellipta 200 mcg-25 mcg/inh inhalation powder TAKE 1 PUFF BY MOUTH EVERY DAY Start Date: 07/05/21 Status: Ordered budesonide 0.25 mg/ml inhalation suspension (20 sources) Corticosteroid Start: 11-26-2020 take 1 dose by inhalation twice daily budesonide 0.5 mg/2 mL inhalation suspension Dose : 0.5 mg = 2 mL, Nebulized, BID, 0 Refill(s) Start Date: 11/26/20 Status: Ordered Start: 11-26-2020 take 1 dose by inhal ation twice daily budesonide 0.5 mg/2 mL inhalation suspension Dose : 0.5 mg = 2 mL, Nebulized, BID, 0 Refill(s) Start Date: 11/26/20 Status: Ordered Start: 11-12-2020 Budesonide 0.5 MG/2ML Inhalation Suspension Quantity: 0 Refills: 0 Ordered: 12-Nov-2020 DO Start : 12-Nov-2020 Active calcium (as citrate)-vitamin D 250 mg-500 intl units (12.5 mcg) oral tablet, chewable (10 sources) Start: 04-28-2020 take 1 tablet by mouth once calcium (as citrate)-vitamin D 250 mg-500 intl units (12.5 mcg) oral tablet, chewable Dose = 2 tab(s), Chewed, BIDM, # 70 tab(s), 0 Refill(s) Start Date: 04/28/20 Status: Ordered calcium carbonate 500 mg chewable tablet (10 sources) Start: 06-05-2019 take 1 mg by mouth once daily as needed for gastroesophageal reflux disease Tums 500 mg oral tablet, chewable mg = tab(s), Chewed, qDay, PRN Heartburn, 0 Refill(s) Start Date: 06/05/19 Status: Ordered Start: 06-05-2019 take 1 mg by mouth o nce daily as needed for gastroesophageal reflux disease Tums 500 mg oral tablet, chewable mg = tab(s), Chewed, qDay, PRN Heartburn, 0 Refill(s) Start Date: 06/05/19 Status: Ordered calcium citrate 950 mg oral tablet (20 sources) Start: 03-13-2024 calcium citrat e 950 mg (200 mg elemental calcium) oral tablet 950 mg 1 tabs, ORAL, DAILY, Date: 03/13/24 11:56:00 AM EDT, Tablet Start Date: 03/13/24 Status: Ordered Medication Dispense Status: Completed Total Allowed Fills: 1 Fills Dispensed: 0 Start: 12-21-2021 take 500 mg by mouth twice sudeep ly Calcium Citrate Active 500 MG PO TWICE A DAY December 21, 2021 12:00am Start: 11-01-2021 take 2 tablets by [facility] once daily calcium citrate 2 tab(s), Oral, qDay, 500 mg, 0 Refill(s) Start Date: 11/01/21 Status: Ordered Medication Dispense Status: Completed Total Allowed Fills: 1 Fills Dispensed: 0 Start: 11-01-2021 take 2 tablets by [facility] once daily calcium citrate 2 tab(s), Oral, qDay, 500 mg, 0 Refill(s) Start Date: 11/01/21 Status: Ordered Repeat number: 1 Start: 11-01-2021 take 2 tablets by [facility] once daily calcium citrate 2 tab(s), Oral, qDay, 500 mg, 0 Refill(s) Start Date: 11/01/21 Status: Ordered Start: 08-28-2013 take 2 tablets by [facility] once daily Calcium Citrate + Oral Tablet TAKE 2 TABLET Daily Quantity: 0 Refills: 0 Ordered: 28-Aug-2013 Kris Yung MD Start : 28-Aug-2013 Active Start: 08-28-2013 take 2 tablets by [facility] once daily Calcium Citrate + Oral Tablet TAKE 2 TABLET Daily Refills: 0 Kris Yung MD Start : 28-Aug-2013 Active Calcium Citrate 500 mg Tablet, Effervescent (1 source) Start: 12-21-2021 take 1 tablet by mouth once daily Calcium Citrate 500 mg Tablet, Effervescent Active 500 mg PO DAILY December 21, 2021 12:00am cholecalciferol 0.05 mg oral tablet (18 sources) Vitamin D Start: 09-21-2020 take 1 tablet by mouth once daily Cholecalciferol (Vitamin D3) 50 mcg (2,000 unit) tablet Active 50 ug PO DAILY December 21, 2021 12:00am ciprofloxacin 500 mg oral tablet (1 source) Quinolone Antimicrobial Start: 03-02-2025 End: 03-05-2025 Cipro 500 mg oral tablet Dose : 500 mg = 1 tab(s), Oral, BID, X 3 day(s), # 6 tab(s), 0 Refill(s), 03/05/25 12:35:00 PM EDT, Pharmacy: [facility]/pharmacy #[id number], 162, cm, 02/28/25 9:55:00 EDT, Height, 86.3, kg, 02/28/25 9:55:00 EDT, Dosing Weight Start Date: 03/02/25 Stop Date: 03/05/25 Status: Ordered Medication Dispense Status: Completed Quantity: 6.0 Unit: tab(s) Total Allowed Fills: 1 Fills Dispensed: 0 clindamycin 300 mg oral capsule (20 sources) Lincosamide Antibacterial Start: 01-25-2024 clindamycin 300 mg oral capsule mg = cap(s), Oral, BID, when she goes to dentist, 0 Refill(s), 92.13 Start Date: 01/25/24 Status: Ordered Medication Dispense Status: Completed Total Allowed Fills: 1 Fills Dispensed: 0 Start: 01-25-2024 clindamycin 30 0 mg oral capsule mg = cap(s), Oral, q6hr, 0 Refill(s), 92.13 Start Date: 01/25/24 Status: Ordered Repeat number: 1 Start: 11-12-2020 take 2 capsules by m outh every hour Clindamycin HCl - 300 MG Oral Capsule 600mg 1 hour prior to dental procedure Quantity: 0 Refills: 0 Ordered: 12-Nov-2020 DO Start : 12-Nov-2020 Active clotrimazole 10 mg oral lozenge (1 source) Azole Antifungal Start: 01-01-2025 End: 01-15-2025 take 1 dose by mouth once clotrimazole 10 mg oral lozenge Dose : 10 mg = 1 lozenge(s), Oral, 5x/Day, X 14 day(s), # 70 lozenge(s), 0 Refill(s), 01/15/25 1:59:00 PM EDT, Pharmacy: [facility]/pharmacy #[id number], 162, cm, 01/01/25 13:07:00 EDT, Height, kg, 01/01/25 13:07:00 EDT, Dosing Weight Start Date: 01/01/25 Stop Date: 01/15/25 Status: Ordered Medication Dispense Status: Completed Quantity: 70.0 Unit: lozenge(s) Total Allowed Fills: 1 Fills Dispensed: 0 Cranberry preparation (2 sources) Non-Standardized Food Allergenic Extract, Non-Standardized Plant Allergenic Extract Start: 01-17-2024 take 1 capsule by mouth once daily cranberry oral capsule Dose = 1 cap(s), Oral, Daily, 0 Refill(s) Start Date: 01/17/24 Status: Ordered 24 hr dilTIAZem hydrochloride 300 mg extended release oral tablet (20 sources) Calcium Channel Kelly Start: 11-24-2024 dilTIAZem 300 mg/24 hours oral tablet, extended release 300 mg 1 tabs, ORAL, DAILY, 90 tabs, Date: 11/24/24 1:42:00 PM EDT, [facility]/pharmacy #[id number], Tablet CR, 1 tabs ORAL DAILY, 163, 07/17/2023 07:25:00 EST, Height/Length Dosing, cm, 91, 07/17/2023 07:25:00 EST, Weight Dosing, kg Start Date: 11/24/24 Status: Ordered Medication Dispense Status: Completed Quantity: 90.0 Unit: tabs Total Allowed Fills: 4 Fills Dispensed: 0 Start: 10-30-2024 take 1 tablet by zoya every hour, then take 1 tablet by mouth once daily Matzim LA 300 mg/24 hours oral tablet, extended release Dose : 300 mg = 1 tab(s), Oral, qDay, # 30 tab(s), 0 Refill(s) Start Date: 10/30/24 Status: Ordered Medication Dispense Status: Completed Quantity: 30.0 Unit: tab(s) Total Allowed Fills: 1 Fills Dispensed: 0 Start: 12-11-2023 take 1 capsule by mo uth every hour, then take 1 capsule by mouth once dilTIAZem 300 mg/24 hours oral capsule, extended release Dose : 300 mg = 1 cap(s), Oral, qDay, per cardiology, # 90 cap(s), 0 Refill(s) Start Date: 12/11/23 Status: Ordered Quantity: 90.0 Unit: cap(s) Repeat number: 1 Start: 12-21-2021 End: 11-24-2024 take 1 capsule by mouth once daily Diltiazem Hcl 180 mg capsule,extended release 24hr Discontinued 180 mg PO DAILY December 21, 2021 12:00am November 24, 2024 10:06am Start: 05-09-2019 take 1 capsule by mo ut once daily DilTIAZem Hydrochloride ER 180 mg/24 hours oral capsule, extended release TAKE 1 CAPSULE BY MOUTH EVERY DAY Start Date: 05/09/19 Status: Ordered Start: 03-01-2019 dilTIAZem HCl ER Coated Beads 240 MG Oral Capsule Extended Release 24 Hour Quantity: 0 Refills: 0 Ordered: 07-Jul-2022 DO Start : 01-Mar-2019 Active Start: 03-01-2019 dilTIAZem HCl ER Coated Beads 180 MG Oral Capsule Extended Release 24 Hour Quantity: 90 Refills: 0 Ordered: 01-Mar-2019 DO Start : 01-Mar-2019 Active Start: 03-01-2019 take 1 capsule by mo ut every twenty-four hours dilTIAZem HCl ER Coated Beads 180 MG Oral Capsule Extended Release 24 Hour Quantity: 90 Refills: 0 DO Start : 01-Mar-2019 Active take 1 capsule by mo ut every twenty-four hours Cartia XT 120 MG Oral Capsule Extended Release 24 Hour Refills: 0 Active DilTIAZem Hydrochloride ER 180 mg/24 hours oral capsule, extended release (20 sources) Start: 05-09-2019 take 1 capsule by mouth once daily DilTIAZem Hydrochloride ER 180 mg/24 hours oral capsule, extended release TAKE 1 CAPSULE BY MOUTH EVERY DAY Start Date: 05/09/19 Status: Ordered dimenhyDRINATE 50 mg oral tablet (1 source) Start: 07-08-2021 End: 07-15-2021 dimenhyDRINATE 50 mg oral tablet Dose : 50 mg = 1 tab(s), Oral, q8h, PRN as needed for motion sickness, X 7 day(s), # 21 tab(s), 0 Refill(s), 07/15/21 14:41:00 EST, Kidney stone Vertigo Start Date: 07/08/21 Stop Date: 07/15/21 Status: Ordered DME MISCellaneous (14 sources) Start: 01-01-2025 DME MISCellane ous See Instructions, Bilateral thigh high compression hose 15-20, Dx: R60.9, # 1 EA, 0 Refill(s), Peripheral edema Status post right knee replacement, 86.9 Start Date: 01/01/25 Status: Ordered Medication Dispense Status: Completed Quantity: 1.0 Unit: EA Total Allowed Fills: 1 Fills Dispensed: 0 Indications: Edema, unspecified; Presence of right artificial knee joint; Start: 07-01-2024 DME MISCellane ous See Instructions, Bilateral knee high compression hose medium 15-20, Dx: R60.9, # 1 EA, 0 Refill(s), Peripheral edema, 89.5 Start Date: 07/01/24 Status: Ordered Quantity: 1.0 Unit: EA Repeat number: 1 Indication: Edema, unspecified Start: 05-26-2024 DME MISCellane ous See Instructions, Blood Glucose Meter Kit. OneTouch Verio Flex. Test blood glucose level 1 time daily and as needed. 1 kit. 0 refills. E11.65, # 1 EA, 0 Refill(s), Pharmacy: [facility]/pharmacy #[id number], 163, cm, 04/08/24 10:23:00 EST, Height, 89.5, kg, 04/08/24 10:23:00 EST, Dosing Weight Start Date: 05/26/24 Status: Ordered Quantity: 1.0 Unit: EA Repeat number: 1 Start: 03-14-2023 DME MISCellane ous See Instructions, Blood glucose monitor E11.65., # 1 EA, 0 Refill(s), Pharmacy: [facility]/pharmacy #[id number], 162, cm, 03/13/23 13:53:00 EDT, Height, 94.8, kg, 03/13/23 13:53:00 EDT, Dosing Weight Start Date: 03/14/23 Status: Ordered docusate sodium 100 mg oral capsule (20 sources) Start: 02-11-2025 docusate sodiu m 100 mg oral capsule Dose : 100 mg = 1 cap(s), Oral, qDay, with plenty of water, # 90 cap(s), 1 Refill(s), Pharmacy: [facility]/pharmacy #[id number], 162, cm, 01/16/25 9:28:00 EDT, Height, kg, 01/16/25 9:28:00 EDT, Dosing Weight Start Date: 02/11/25 Status: Ordered Medication Dispense Status: Completed Quantity: 90.0 Unit: cap(s) Total Allowed Fills: 2 Fills Dispensed: 0 Start: 01-01-2025 docusate sodiu m 100 mg oral capsule Dose : 100 mg = 1 cap(s), Oral, qDay, with plenty of water, # 90 cap(s), 1 Refill(s), other reason (Rx) Start Date: 01/01/25 Status: Ordered Medication Dispense Status: Completed Quantity: 90.0 Unit: cap(s) Total Allowed Fills: 2 Fills Dispensed: 0 Start: 09-11-2024 take 1 capsule by [facility] once daily Docusate Sodium 100 mg capsule Active 100 mg PO DAILY November 24, 2024 12:00am Start: 06-13-2024 docusate sodiu m 100 mg oral capsule Dose : 100 mg = 1 cap(s), Oral, qDay, # 90 cap(s), 1 Refill(s), Pharmacy: [facility]/pharmacy #[id number], 163, cm, 04/08/24 10:23:00 EST, Height, kg, 04/08/24 10:23:00 EST, Dosing Weight Start Date: 06/13/24 Status: Ordered Quantity: 90.0 Unit: cap(s) Repeat number: 2 Start: 03-13-2024 docusate sodiu m 100 mg oral tablet 100 mg 1 tabs, ORAL, DAILY, Date: 03/13/24 11:56:00 AM EDT Start Date: 03/13/24 Status: Ordered Medication Dispense Status: Completed Total Allowed Fills: 1 Fills Dispensed: 0 Start: 02-06-2024 docusate sodiu m 100 mg oral capsule Dose : 100 mg = 1 cap(s), Oral, qDay, # 30 cap(s), 3 Refill(s), Pharmacy: [facility]/pharmacy #[id number], 163, cm, 01/25/24 12:59:00 EDT, Height, kg, 01/25/24 12:59:00 EDT, Dosing Weight Start Date: 02/06/24 Status: Ordered Quantity: 30.0 Unit: cap(s) Repeat number: 4 doxycycline hyclate 100 mg oral capsule (3 sources) Tetracycline-class Drug Start: 07-05-2021 End: 07-15-2021 doxycycline hyclate 100 mg oral capsule Dose : 100 mg = 1 cap(s), Oral, BID, X 10 day(s), # 20 cap(s), 0 Refill(s), 07/15/21 13:58:00 EST, [id number] 160, cm, 07/05/21 13:34:00 EST, Height, 96.7, kg, 07/05/21 13:34:00 EST, Dosing Weight Start Date: 07/05/21 Stop Date: 07/15/21 Status: Ordered Start: 05-16-2019 Doxycycline Hy clate 100 MG Oral Capsule Refills: 0 Start : 16-May-2019 Active Start: 05-16-2019 take 1 tablet by zoya th once daily Doxycycline Hyclate 100 MG Oral Tablet TAKE 1 TABLET EVERY 12 HOURS DAILY. Quantity: 10 Refills: 0 Bonnie SHANKAR, Mari Porras Start : 16-May-2019 Active escitalopram 20 mg oral tablet (20 sources) Serotonin Reuptake Inhibitor Start: 02-26-2025 End: 05-27-2025 escitalopram 20 mg oral tablet Dose : 20 mg = 1 tab(s), Oral, qDay, # 90 tab(s), 0 Refill(s), [id number], cm, 02/26/25 13:20:00 EDT, Height, kg, 02/26/25 13:20:00 EDT, Dosing Weight Start Date: 02/26/25 Stop Date: 05/27/25 Status: Ordered Medication Dispense Status: Completed Quantity: 90.0 Unit: tab(s) Total Allowed Fills: 1 Fills Dispensed: 0 Start: 10-30-2024 End: 01-28-2025 escitalopram 10 mg oral tabl et 10 mg 1 tabs, ORAL, DAILY, 30 tabs, Date: 01/26/25 11:06:00 AM EDT, Tablet Start Date: 01/26/25 Status: Ordered Medication Dispense Status: Completed Quantity: 30.0 Unit: tabs Total Allowed Fills: 1 Fills Dispensed: 0 Start: 10-30-2024 End: 01-28-2025 escitalopram 5 mg oral table t 5 mg 1 tabs, ORAL, DAILY, 30 tabs, Date: 01/26/25 11:06:00 AM EDT, Tablet Start Date: 01/26/25 Status: Ordered Medication Dispense Status: Completed Quantity: 30.0 Unit: tabs Total Allowed Fills: 1 Fills Dispensed: 0 Start: 02-22-2024 End: 10-19-2024 take 1 tablet by mouth once daily escitalopram 10 mg oral tablet TAKE 1 TABLET BY MOUTH EVERY DAY FOR 100 DAYS Start Date: 09/05/24 Status: Ordered Repeat number: 1 Start: 02-22-2024 End: 10-19-2024 take 1 tablet by mouth once daily escitalopram 5 mg oral tablet TAKE 1 TABLET BY MOUTH EVERY DAY FOR 100 DAYS WITH 10 MG TAB Start Date: 09/05/24 Status: Ordered Repeat number: 1 Start: 09-21-2023 End: 06-22-2024 escitalopram 20 mg oral tabl et 20 mg 1 tabs, ORAL, DAILY, 90 tabs, Date: 12/10/23 12:19:00 PM EDT, Tablet Start Date: 12/10/23 Status: Ordered Quantity: 90.0 Unit: tabs Repeat number: 1 Start: 08-06-2023 End: 02-02-2024 take 1 tablet by mouth once daily escitalopram 5 mg oral tablet Dose : 5 mg = 1 tab(s), Oral, qDay, Take with 10 mg dose for total of 15 mg once daily PO., # 90 tab(s), 1 Refill(s), Pharmacy: [facility]/pharmacy #[id number], 162, cm, 08/03/23 10:12:00 EDT, Height, kg, 08/03/23 10:16:00 EDT, Dosing Weight Start Date: 08/06/23 Stop Date: 02/02/24 Status: Ordered Start: 06-01-2022 End: 06-06-2023 take 1 tablet by mouth once daily escitalopram 5 mg oral tablet Dose : 5 mg = 1 tab(s), Oral, qDay, Take with 10 mg dose for total of 15 mg once daily PO., # 90 tab(s), 1 Refill(s), Pharmacy: [facility]/pharmacy #[id number], 162.8, cm, 12/08/22 9:56:00 EDT, Height, kg, 12/08/22 9:56:00 EDT, Dosing Weight Start Date: 12/08/22 Stop Date: 06/06/23 Status: Ordered Start: 02-13-2013 End: 02-02-2024 take 1 tablet by mouth once daily escitalopram 10 mg oral tablet Dose : 10 mg = 1 tab(s), Oral, qDay, Take with 5 mg dose for total of 15 mg once daily PO., # 90 tab(s), 1 Refill(s), Pharmacy: [facility]/pharmacy #[id number], 162, cm, 08/03/23 10:12:00 EDT, Height, kg, 08/03/23 10:16:00 EDT, Dosing Weight Start Date: 08/06/23 Stop Date: 02/02/24 Status: Ordered Fluticasone Furoate (Arnuity Ellipta) 100 mcg/actuation blister with device (1 source) Start: 11-24-2024 take 100 ug by inhalation once daily Fluticasone Furoate (Arnuity Ellipta) 100 mcg/actuation blister with device Active 1 NMA INHALATION DAILY November 24, 2024 12:00am furosemide 20 mg oral tablet (20 sources) Loop Diuretic Start: 07-26-2021 furosemide 20 mg oral tablet 20 mg 1 tabs, ORAL, DAILY, 90 tabs, Date: 02/09/25 2:43:00 PM EDT, [facility]/pharmacy #[id number], Tablet, 1 tabs ORAL DAILY, 163, 07/17/2023 07:25:00 EST, Height/Length Dosing, cm, 91, 07/17/2023 07:25:00 EST, Weight Dosing, kg Start Date: 02/09/25 Status: Ordered Medication Dispense Status: Completed Quantity: 90.0 Unit: tabs Total Allowed Fills: 4 Fills Dispensed: 0 Start: 12-24-2020 End: 03-24-2021 furosemide 20 mg oral tablet Dose : 20 mg = 1 tab(s), Oral, qDay, # 90 tab(s), 1 Refill(s), Pharmacy: [facility]/pharmacy #[id number], 163.7, cm, 01/28/21 11:32:00 EDT, Height, kg, 01/28/21 11:32:00 EDT, Dosing Weight Start Date: 03/10/21 Status: Ordered Start: 09-21-2020 Furosemide 20 MG Oral Tablet Quantity: 90 Refills: 0 Ordered: 25-Sep-2020 DO Start : 21-Sep-2020 Active guaiFENesin 600 mg oral tabl et (3 sources) Start: 07-05-2021 End: 07-15-2021 Mucinex 600 mg oral tablet, extended release Dose : 600 mg = 1 tab(s), Oral, q12h, X 10 day(s), # 20 tab(s), 0 Refill(s), 07/15/21 14:01:00 EST, [id number], 160, cm, 07/05/21 13:34:00 EST, Height, kg, 07/05/21 13:34:00 EST, Dosing Weight Start Date: 07/05/21 Stop Date: 07/15/21 Status: Ordered Start: 07-05-2021 take 1 tablet by zoya th every twelve hours Mucus Relief 600 MG Oral Tablet Extended Release 12 Hour TAKE 1 TABLET BY MOUTH EVERY 12 HOURS FOR 10 DAYS Quantity: 20 Refills: 0 Ordered: 05-Jul-2021 DO Start : 05-Jul-2021 Complete levothyroxine sodium 0.075 mg oral tablet (20 sources) l-Thyroxine Start: 01-07-2025 levothyroxine 75 mcg (0.075 mg) oral tablet Dose : 75 mcg = 1 tab(s), Oral, qDayAC, # 90 tab(s), 1 Refill(s), [id number], 162, cm, 01/01/25 13:07:00 EDT, Height, kg, 01/01/25 13:07:00 EDT, Dosing Weight Start Date: 01/07/25 Status: Ordered Medication Dispense Status: Completed Quantity: 90.0 Unit: tab(s) Total Allowed Fills: 2 Fills Dispensed: 0 Start: 11-24-2024 take 1 tablet by zoya th once daily Levothyroxine 75 mcg tablet Active 75 ug PO DAILY November 24, 2024 12:00am Start: 10-08-2024 levothyroxine 75 mcg (0.075 mg) oral tablet Dose : 75 mcg = 1 tab(s), Oral, qDayAC, # 90 tab(s), 1 Refill(s), Pharmacy: [facility]/pharmacy #[id number], 160.5, cm, 08/05/24 10:27:00 EDT, Height, kg, 08/05/24 10:27:00 EDT, Dosing Weight Start Date: 10/08/24 Status: Ordered Medication Dispense Status: Completed Quantity: 90.0 Unit: tab(s) Total Allowed Fills: 2 Fills Dispensed: 0 Start: 07-21-2024 Synthroid 100 mcg (0.1 mg) oral tablet 100 mcg 1 tabs, ORAL, DAILY, 30 tabs, Date: 07/21/24 10:43:00 AM EDT, Tablet Start Date: 07/21/24 Status: Ordered Medication Dispense Status: Completed Quantity: 30.0 Unit: tabs Total Allowed Fills: 1 Fills Dispensed: 0 Start: 06-17-2024 levothyroxine 50 mcg (0.05 mg) oral tablet Dose : 50 mcg = 1 tab(s), Oral, qDayAC, as a single daily dose before breakfast, # 90 tab(s), 1 Refill(s), Pharmacy: [facility]/pharmacy #[id number], 163, cm, 04/08/24 10:23:00 EST, Height, kg, 04/08/24 10:23:00 EST, Dosing Weight Start Date: 06/17/24 Status: Ordered Quantity: 90.0 Unit: tab(s) Repeat number: 2 Start: 01-25-2024 levothyroxine 50 mcg (0.05 mg) oral tablet Dose : 50 mcg = 1 tab(s), Oral, qDayAC, as a single daily dose before breakfast, # 90 tab(s), 1 Refill(s), Pharmacy: [facility]/pharmacy #[id number], 163.3, cm, 01/17/24 10:54:00 EDT, Height, kg, 01/17/24 10:54:00 EDT, Dosing Weight Start Date: 01/25/24 Status: Ordered Quantity: 90.0 Unit: tab(s) Repeat number: 2 Start: 05-02-2023 End: 11-19-2023 levothyroxine 50 mcg (0.05 m g) oral tablet Dose : 50 mcg = 1 tab(s), Oral, qDayAC, as a single daily dose before breakfast, # 90 tab(s), 1 Refill(s), Pharmacy: [facility]/pharmacy #[id number], 162, cm, 08/03/23 10:12:00 EDT, Height, kg, 08/03/23 10:16:00 EDT, Dosing Weight Start Date: 08/21/23 Stop Date: 11/19/23 Status: Ordered Start: 03-16-2023 End: 04-15-2023 levothyroxine 50 mcg (0.05 m g) oral tablet Dose : 50 mcg = 1 tab(s), Oral, qDayAC, as a single daily dose before breakfast, # 30 tab(s), 0 Refill(s), Pharmacy: [facility]/pharmacy #[id number], 162, cm, 03/13/23 13:53:00 EDT, Height, kg, 03/13/23 13:53:00 EDT, Dosing Weight Start Date: 03/16/23 Stop Date: 04/15/23 Status: Ordered Start: 01-19-2023 End: 02-18-2023 levothyroxine 50 mcg (0.05 m g) oral tablet Dose : 50 mcg = 1 tab(s), Oral, qDayAC, as a single daily dose before breakfast, # 30 tab(s), 0 Refill(s), Pharmacy: [facility]/pharmacy #[id number], 162, cm, 01/16/23 13:24:00 EDT, Height, kg, 01/16/23 13:24:00 EDT, Dosing Weight Start Date: 01/19/23 Stop Date: 02/18/23 Status: Ordered Start: 01-01-2023 levothyroxine 50 mcg (0.05 mg) oral tablet Dose : 50 mcg = 1 tab(s), Oral, qDay, # 30 tab(s), 0 Refill(s), Pharmacy: [facility]/pharmacy #[id number], 160, cm, 12/28/22 9:03:00 EDT, Height, kg, 12/28/22 9:03:00 EDT, Dosing Weight Start Date: 01/01/23 Status: Ordered Start: 12-11-2022 levothyroxine 75 mcg (0.075 mg) oral tablet Dose : 75 mcg = 1 tab(s), Oral, qDay, as a single daily dose before breakfast, # 60 tab(s), 0 Refill(s), Pharmacy: [facility]/pharmacy #[id number], 162.8, cm, 12/08/22 9:56:00 EDT, Height, kg, 12/08/22 9:56:00 EDT, Dosing Weight Start Date: 12/11/22 Status: Ordered Start: 12-21-2021 End: 11-24-2024 take 2 tablets by mouth once daily Levothyroxine 50 mcg tablet Discontinued 50 ug PO DAILY December 21, 2021 12:00am November 24, 2024 10:06am 100mcg on Fridays Start: 12-21-2021 take 100 ug by mouth once yaakov y Levothyroxine Active 50 MCG PO DAILY December 21, 2021 12:00am 100mcg on Fridays Start: 05-09-2019 levothyroxine 50 mcg (0.05 mg) oral tablet Dose : 50 mcg = 1 tab(s), Oral, qDay, # 30 tab(s), 0 Refill(s) Start Date: 05/09/19 Status: Ordered Start: 04-01-2012 Levothyroxine Sodium 50 MCG Oral Tablet TAKE 1 TABLET BY MOUTH EVERY DAY, EXCEPT TAKE 2 TABLETS BY MOUTH ON FRIDAYS Quantity: 105 Refills: 1 Ordered: 07-Jun-2022 Kris Yung MD Start : 01-Apr-2012 Active loperamide hydrochloride 2 mg oral tablet (20 sources) Opioid Agonist Start: 06-05-2019 take 1 tablet by mouth once as needed for pain, then take 1 tablet by mouth every four hours as needed for pain Imodium A-D 2 mg oral tablet Dose : 2 mg = 1 tab(s), Oral, q4h, PRN abdominal pain/diarrhea, 0 Refill(s) Start Date: 06/05/19 Status: Ordered metFORMIN hydrochloride 500 mg oral tablet (5 sources) Biguanide Start: 08-31-2022 End: 09-30-2022 MetFORMIN (Eqv-Glucophage XR) 500 mg oral tablet, EXTENDED RELEASE Dose : 500 mg = 1 tab(s), Oral, qDay, with evening meal, # 30 tab(s), 0 Refill(s), Pharmacy: [facility]/pharmacy #[id number], 162.8, cm, 04/20/23 10:20:00 EDT, Height Start Date: 08/31/22 Stop Date: 09/30/22 Status: Ordered Start: 07-07-2022 take 1 tablet by zoya th once daily metFORMIN HCl ER 500 MG Oral Tablet Extended Release 24 Hour Take 1 tablet daily Quantity: 90 Refills: 1 Ordered: 07-Jul-2022 Kris Yung MD Start : 07-Jul-2022 Active [facility] Medication (1 source) Start: 01-01-2025 Misc Medicatio n mouth moisturizer, 0 Refill(s), 86.9 Start Date: 01/01/25 Status: Ordered Medication Dispense Status: Completed Total Allowed Fills: 1 Fills Dispensed: 0 nitrofurantoin, macrocrystals 25 mg / nitrofurantoin, monohydrate 75 mg oral capsule (2 sources) Nitrofuran Antibacterial Start: 11-07-2023 End: 11-12-2023 nitrofurantoin macrocrystals-monohydr ate 100 mg oral capsule Dose : 100 mg = 1 cap(s), Oral, BID, Take with food, X 5 day(s), # 10 cap(s), 0 Refill(s), 11/12/23 12:11:00 PM EDT, Pharmacy: [facility]/pharmacy #[id number], 163.3, cm, 11/07/23 11:36:00 EDT, Height, 93.2, kg, 11/07/23 11:36:00 EDT, Dosing Weight Start Date: 11/07/23 Stop Date: 11/12/23 Status: Ordered oxyCODONE hydrochloride 5 mg oral tablet (3 sources) Opioid Agonist Start: 01-01-2025 oxyCODONE 5 mg oral tablet ( IMMEDIATE release ) See Instructions, 1 tab(s), 0 Refill(s), 88.7 Start Date: 01/01/25 Status: Ordered Medication Dispense Status: Completed Total Allowed Fills: 1 Fills Dispensed: 0 Start: 12-23-2024 take 5-10 mg by mout h every four hours as needed for pain Oxycodone 5 mg Tablet Active 5 - 10 mg PO EVERY 4 HOURS NEEDED as needed for Pain Score 4-10 42 7 0 December 23, 2024 Status post total knee replacement Presence of unspecified artificial knee joint Start: 07-31-2021 End: 08-02-2021 oxyCODONE 5 mg oral tablet ( IMMEDIATE release ) Dose : 5 mg = 1 tab(s), Oral, q6h, X 2 day(s), # 2 tab(s), 0 Refill(s), 08/02/21 20:12:00 EDT, Kidney stone, 99.1 Start Date: 07/31/21 Stop Date: 08/02/21 Status: Ordered predniSONE 20 mg oral tablet (8 sources) Start: 04-12-2022 End: 04-17-2022 prednisone 20mg tab (TAPER) Dose : 40 mg = 2 tab(s), Oral, qDay, X 5 day(s), # 10 tab(s), 0 Refill(s), 04/17/22 15:58:00 EST, Pharmacy: [facility]/pharmacy #[id number], Acute bacterial bronchitis, 163.5, cm, 04/12/22 15:27:00 EST, Height Start Date: 04/12/22 Stop Date: 04/17/22 Status: Ordered Start: 11-01-2021 End: 11-09-2021 prednisone 10mg tab (TAPER) Taper 40-30-20-10 x 2 days each dose, Oral, qDay, Take with food/meal. Do not take any NSAIDs while on this medication., # 20 tab(s), 0 Refill(s), Pharmacy: [facility]/pharmacy #[id number], 160, cm, 11/01/21 10:04:00 EDT, Height Start Date: 11/01/21 Stop Date: 11/09/21 Status: Ordered Start: 06-29-2021 take 1 tablet by zoya once daily at mealtime predniSONE 20 MG Oral Tablet TAKE 1 TABLET EVERY DAY WITH FOOD OR MILK FOR 5 DAYS Quantity: 5 Refills: 0 Ordered: 29-Jun-2021 DO Start : 29-Jun-2021 Complete Start: 05-09-2019 predniSONE 50 MG Oral Tablet Quantity: 5 Refills: 0 Start : 09-May-2019 Active Start: 02-13-2019 predniSONE 10 MG Oral Tablet Refills: 0 Start : 13-Feb-2019 Active Probiotic (10 sources) Start: 01-17-2024 Probiotic 0 Re fill(s) Start Date: 01/17/24 Status: Ordered Repeat number: 1 Start: 01-17-2024 Probiotic 0 Re fill(s) Start Date: 01/17/24 Status: Ordered rosuvastatin calcium 10 mg oral tablet (20 sources) HMG-CoA Reductase Inhibitor Start: 09-22-2024 End: 09-29-2025 rosuvastatin 10 mg oral tablet Dose : 10 mg = 1 tab(s), Oral, qHS, # 100 tab(s), 1 Refill(s), [id number], 162, cm, 03/12/25 15:24:00 EDT, Height, kg, 03/12/25 15:24:00 EDT, Dosing Weight Start Date: 03/13/25 Stop Date: 09/29/25 Status: Ordered Medication Dispense Status: Completed Quantity: 100.0 Unit: tab(s) Total Allowed Fills: 2 Fills Dispensed: 0 Start: 01-30-2022 rosuvastatin 1 0 mg oral capsule 10 mg 1 caps, ORAL, DAILY, 30 caps, Date: 01/30/22 12:19:00 PM EDT, Capsule Start Date: 01/30/22 Status: Ordered Medication Dispense Status: Completed Quantity: 30.0 Unit: caps Total Allowed Fills: 1 Fills Dispensed: 0 Start: 12-16-2021 End: 09-09-2024 rosuvastatin 10 mg oral tabl et Dose : 10 mg = 1 tab(s), Oral, qHS, # 100 tab(s), 1 Refill(s), [id number], 163, cm, 02/18/24 10:21:00 EDT, Height, kg, 02/18/24 10:21:00 EDT, Dosing Weight Start Date: 02/22/24 Stop Date: 09/09/24 Status: Ordered Quantity: 100.0 Unit: tab(s) Repeat number: 2 semaglutide 7 mg oral tablet (20 sources) Start: 08-03-2023 Rybelsus 7 mg oral tablet 7 mg 1 tabs, ORAL, DAILY, take at least 30 minutes before first food, beverage, or other oral meds, 30 tabs, Date: 09/10/23 10:35:00 AM EDT, Tablet Start Date: 09/10/23 Status: Ordered Medication Dispense Status: Completed Quantity: 30.0 Unit: tabs Total Allowed Fills: 1 Fills Dispensed: 0 Start: 04-11-2023 Rybelsus 3 mg oral tablet Dose : 3 mg = 1 tab(s), Oral, qDay, take at least 30 minutes before first food, beverage, or other oral meds, # 30 tab(s), 3 Refill(s), Pharmacy: [facility]/pharmacy #[id number], 162, cm, 04/11/23 13:15:00 EST, Height, kg, 04/11/23 13:15:00 EST, Dosing Weight Start Date: 04/11/23 Status: Ordered Start: 03-13-2023 Rybelsus 3 mg oral tablet Dose : 3 mg = 1 tab(s), Oral, qDay, take at least 30 minutes before first food, beverage, or other oral meds, # 30 tab(s), 0 Refill(s), other reason (Rx) Start Date: 03/13/23 Status: Ordered Semaglutide (Rybelsus) 7 mg tablet (1 source) Start: 11-24-2024 take 1 tablet by mouth once daily Semaglutide (Rybelsus) 7 mg tablet Active 7 mg PO DAILY November 24, 2024 12:00am sildenafil 20 mg oral tablet (3 sources) Phosphodiesterase 5 Inhibitor Start: 08-03-2023 sildenafil 20 mg oral tablet Dose : 20 mg = 1 tab(s), TAKE 1 TABLET BY MOUTH THREE TIMES A DAY Start Date: 08/03/23 Status: Ordered tiZANidine 2 mg oral capsule (2 sources) Central alpha-2 Adrenergic Agonist Start: 08-03-2020 tiZANidine 2 mg oral capsule Dose : 2 mg = 1 cap(s), Oral, qHS, PRN Spasm, 0 Refill(s) Start Date: 08/03/20 Status: Ordered Start: 02-18-2019 take 1 tablet by zoya th at bedtime as needed tiZANidine HCl - 2 MG Oral Tablet TAKE 1 TABLET Bedtime as needed Quantity: 30 Refills: 0 Bonnie SHANKAR, Mari M Start : 18-Feb-2019 Active Trelegy Ellipta 200 mcg-62.5 mcg-25 mcg/inh inhalation powder (5 sources) Start: 11-26-2020 take 1 dose by inhalation once daily Trelegy Ellipta 200 mcg-62.5 mcg-25 mcg/inh inhalation powder Dose = 1 puff(s), Inhalation, qDay, 0 Refill(s) Start Date: 11/26/20 Status: Ordered Vitamin B-12 1000 mcg oral tablet (11 sources) Start: 05-09-2024 Vitamin B-12 1 000 mcg oral tablet Dose : 2,000 mcg = 2 tab(s), Oral, qDay, 0 Refill(s) Start Date: 05/09/24 Status: Ordered Medication Dispense Status: Completed Total Allowed Fills: 1 Fills Dispensed: 0 Start: 05-09-2024 Vitamin B-12 1 000 mcg oral tablet Dose : 2,000 mcg = 2 tab(s), Oral, qDay, 0 Refill(s) Start Date: 05/09/24 Status: Ordered Repeat number: 1 vitamin b12 1 mg extended release oral tablet (1 source) Vitamin B12 Start: 11-24-2024 take 2 tablets by mouth once daily Cyanocobalamin (Vitamin B-12) (Vitamin B-12) 1,000 mcg tablet extended release Active 2000 ug PO DAILY November 24, 2024 12:00am Vitamin B12 1000 mcg oral tablet (9 sources) Start: 03-13-2024 Vitamin B12 10 00 mcg oral tablet 1,000 mcg 1 tabs, ORAL, DAILY, Date: 03/13/24 11:56:00 AM EDT, Tablet Start Date: 03/13/24 Status: Ordered Medication Dispense Status: Completed Total Allowed Fills: 1 Fills Dispensed: 0 Start: 03-13-2024 Vitamin B12 10 00 mcg oral tablet 1,000 mcg 1 tabs, ORAL, DAILY, Date: 03/13/24 11:56:00 AM EDT, Tablet Start Date: 03/13/24 Status: Ordered Repeat number: 1 Vitamin C 500 mg oral tablet (20 sources) Start: 03-13-2024 Vitamin C 500 mg oral tablet 500 mg 1 tabs, ORAL, DAILY, 30 tabs, Date: 03/13/24 11:55:00 AM EDT, Tablet Start Date: 03/13/24 Status: Ordered Medication Dispense Status: Completed Quantity: 30.0 Unit: tabs Total Allowed Fills: 1 Fills Dispensed: 0 Start: 03-13-2024 Vitamin C 500 mg oral tablet 500 mg 1 tabs, ORAL, DAILY, 30 tabs, Date: 03/13/24 11:55:00 AM EDT, Tablet Start Date: 03/13/24 Status: Ordered Quantity: 30.0 Unit: tabs Repeat number: 1 Start: 01-17-2024 Vitamin C 500 mg oral tablet Dose : 500 mg = 1 tab(s), Oral, qDay, # 30 tab(s), 0 Refill(s) Start Date: 01/17/24 Status: Ordered Medication Dispense Status: Completed Quantity: 30.0 Unit: tab(s) Total Allowed Fills: 1 Fills Dispensed: 0 Start: 01-17-2024 Vitamin C 500 mg oral tablet Dose : 500 mg = 1 tab(s), Oral, qDay, # 30 tab(s), 0 Refill(s) Start Date: 01/17/24 Status: Ordered Quantity: 30.0 Unit: tab(s) Repeat number: 1 Start: 01-17-2024 Vitamin C 500 mg oral tablet Dose : 500 mg = 1 tab(s), Oral, qDay, # 30 tab(s), 0 Refill(s) Start Date: 01/17/24 Status: Ordered Vitamin D3 2000 intl units ( 50 mcg) oral capsule (9 sources) Start: 06-24-2020 Vitamin D3 200 0 intl units (50 mcg) oral capsule 2,000 intl_unit 1 caps, ORAL, DAILY, 60 caps, Date: 06/24/20 7:53:00 AM EST, Capsule Start Date: 06/24/20 Status: Ordered Medication Dispense Status: Completed Quantity: 60.0 Unit: caps Total Allowed Fills: 1 Fills Dispensed: 0 Start: 06-24-2020 Vitamin D3 200 0 intl units (50 mcg) oral capsule 2,000 intl_unit 1 caps, ORAL, DAILY, 60 caps, Date: 06/24/20 7:53:00 AM EST, Capsule Start Date: 06/24/20 Status: Ordered Quantity: 60.0 Unit: caps Repeat number: 1 Vitamin D3 50 mcg (2000 intl units) oral tablet (20 sources) Start: 03-13-2025 End: 09-29-2025 Vitamin D3 50 mcg (2000 intl units) oral tablet Dose : 2,000 unit(s) = 1 tab(s), Oral, qDayM, with food., # 100 tab(s), 1 Refill(s), [id number] 162, cm, 03/12/25 15:24:00 EDT, Height, kg, 03/12/25 15:24:00 EDT, Dosing Weight Start Date: 03/13/25 Stop Date: 09/29/25 Status: Ordered Medication Dispense Status: Completed Quantity: 100.0 Unit: tab(s) Total Allowed Fills: 2 Fills Dispensed: 0 Start: 09-11-2024 End: 03-30-2025 Vitamin D3 50 mcg (2000 intl units) oral tablet Dose : 2,000 unit(s) = 1 tab(s), Oral, qDayM, with food., # 100 tab(s), 1 Refill(s), Pharmacy: [facility] #[id number], 160.5, cm, 08/05/24 10:27:00 EDT, Height, kg, 08/05/24 10:27:00 EDT, Dosing Weight Start Date: 09/11/24 Stop Date: 03/30/25 Status: Ordered Medication Dispense Status: Completed Quantity: 100.0 Unit: tab(s) Total Allowed Fills: 2 Fills Dispensed: 0 Start: 09-11-2024 End: 03-30-2025 Vitamin D3 50 mcg (2000 intl units) oral tablet Dose : 2,000 unit(s) = 1 tab(s), Oral, qDayM, with food., # 100 tab(s), 1 Refill(s), [id number], 160.5, cm, 08/05/24 10:27:00 EDT, Height, kg, 08/05/24 10:27:00 EDT, Dosing Weight Start Date: 09/11/24 Stop Date: 03/30/25 Status: Ordered Quantity: 100.0 Unit: tab(s) Repeat number: 2 Start: 02-22-2024 End: 12-18-2024 Vitamin D3 50 mcg (2000 intl units) oral tablet Dose : 2,000 unit(s) = 1 tab(s), Oral, qDayM, with food., # 100 tab(s), 2 Refill(s), [id number], 163, cm, 02/18/24 10:21:00 EDT, Height, kg, 02/18/24 10:21:00 EDT, Dosing Weight Start Date: 02/22/24 Stop Date: 12/18/24 Status: Ordered Quantity: 100.0 Unit: tab(s) Repeat number: 3 Start: 02-22-2024 End: 12-18-2024 Vitamin D3 50 mcg (2000 intl units) oral tablet Dose : 2,000 unit(s) = 1 tab(s), Oral, qDayM, with food., # 100 tab(s), 2 Refill(s), Pharmacy: [facility]/pharmacy #[id number], 163, cm, 02/18/24 10:21:00 EDT, Height, kg, 02/18/24 10:21:00 EDT, Dosing Weight Start Date: 02/22/24 Stop Date: 12/18/24 Status: Ordered Start: 09-11-2023 End: 03-09-2024 Vitamin D3 50 mcg (2000 intl units) oral tablet Dose : 2,000 unit(s) = 1 tab(s), Oral, qDayM, with food, # 90 tab(s), 1 Refill(s), Pharmacy: [facility]/pharmacy #[id number], 162, cm, 08/03/23 10:12:00 EDT, Height, kg, 08/03/23 10:16:00 EDT, Dosing Weight Start Date: 09/11/23 Stop Date: 03/09/24 Status: Ordered Start: 06-04-2023 End: 12-01-2023 Vitamin D3 50 mcg (2000 intl units) oral tablet Dose : 2,000 unit(s) = 1 tab(s), Oral, qDayM, with food, # 90 tab(s), 1 Refill(s), Pharmacy: [facility]/pharmacy #[id number], 162, cm, 04/11/23 13:15:00 EST, Height, kg, 04/11/23 13:15:00 EST, Dosing Weight Start Date: 06/04/23 Stop Date: 12/01/23 Status: Ordered Start: 12-08-2022 End: 06-06-2023 Vitamin D3 50 mcg (2000 intl units) oral tablet Dose : 2,000 unit(s) = 1 tab(s), Oral, qDayM, with food, # 90 tab(s), 1 Refill(s), Pharmacy: [facility]/pharmacy #[id number], 162.8, cm, 12/08/22 9:56:00 EDT, Height, kg, 12/08/22 9:56:00 EDT, Dosing Weight Start Date: 12/08/22 Stop Date: 06/06/23 Status: Ordered Start: 05-09-2022 End: 11-05-2022 Vitamin D3 50 mcg (2000 intl units) oral tablet Dose : 2,000 unit(s) = 1 tab(s), Oral, Daily, in lieu of provider absence, # 90 tab(s), 1 Refill(s), Pharmacy: [facility]/pharmacy #[id number], 163.5, cm, 04/12/22 15:27:00 EST, Height, kg, 04/12/22 15:27:00 EST, Dosing Weight Start Date: 05/09/22 Stop Date: 11/05/22 Status: Ordered Start: 11-01-2021 End: 04-30-2022 Vitamin D3 50 mcg (2000 intl units) oral tablet Dose : 2,000 unit(s) = 1 tab(s), Oral, Daily, # 90 tab(s), 1 Refill(s), Pharmacy: [facility]/pharmacy #[id number], 160, cm, 11/01/21 10:04:00 EDT, Height, kg, 11/01/21 10:04:00 EDT, Dosing Weight Start Date: 11/01/21 Stop Date: 04/30/22 Status: Ordered Start: 07-26-2021 End: 10-24-2021 Vitamin D3 50 mcg (2000 intl units) oral tablet Dose : 2,000 unit(s) = 1 tab(s), Oral, Daily, # 90 tab(s), 0 Refill(s), Pharmacy: [facility]/pharmacy #[id number], 160, cm, 07/26/21 11:02:00 EDT, Height, kg, 07/26/21 11:02:00 EDT, Dosing Weight Start Date: 07/26/21 Stop Date: 10/24/21 Status: Ordered Start: 03-10-2021 End: 04-26-2022 Vitamin D3 50 mcg (2000 intl units) oral tablet Dose : 2,000 unit(s) = 1 tab(s), Oral, Daily, # 90 tab(s), 1 Refill(s), Pharmacy: [facility]/pharmacy #[id number], 163.7, cm, 01/28/21 11:32:00 EDT, Height, kg, 01/28/21 11:32:00 EDT, Dosing Weight Start Date: 03/10/21 Stop Date: 09/06/21 Status: Ordered warfarin sodium 2 mg oral tablet (20 sources) Vitamin K Antagonist Start: 02-09-2025 warfarin 2 mg oral tablet See Instructions, take 2 tablets (4mg) by mouth on Mondays; and take 3 tablets (6mg) by mouth on all other days., 270 tabs, Date: 02/09/25 10:22:00 AM EDT, [facility]/pharmacy #[id number], Instructions Replace Required Details, Tablet, take 2 tablets (4mg) by mouth on Mondays; and take 3 tablets (6mg) by mouth on all other days., 163, 07/17/2023 07:25:00 EST, Height/Length Dosing, cm, 91, 07/17/2023 07:25:00 EST, Weight Dosing, kg Start Date: 02/09/25 Status: Ordered Medication Dispense Status: Completed Quantity: 270.0 Unit: tabs Total Allowed Fills: 4 Fills Dispensed: 0 Start: 01-16-2023 warfarin 2 mg oral tablet Dose : 6 mg = 3 tab(s), qDay, 0 Refill(s) Start Date: 01/16/23 Status: Ordered Medication Dispense Status: Completed Total Allowed Fills: 1 Fills Dispensed: 0 Start: 12-21-2021 warfarin 2 mg oral tablet 3 tab, Oral, Sun/Sun///Sat, 0 Refill(s) Start Date: 01/16/23 Status: Ordered Repeat number: 1 Start: 12-21-2021 take 8 mg by mouth once daily Warfarin Active 6 MG PO DAILY December 21, 2021 12:00am 8mg on Mondays only Start: 08-03-2020 take 6 mg by mouth once daily warfarin See Instructions, 6mg Oral q day -sunday, 0 Refill(s) Start Date: 08/03/20 Status: Ordered Start: 08-03-2020 take 8 mg by mouth once daily warfarin See Instructions, 8 mg Oral q day sunday, 0 Refill(s) Start Date: 08/03/20 Status: Ordered Start: 08-24-2011 Warfarin Racqueliu m 2 MG Oral Tablet TK 3 TS 6 MG QD EXCEPT 2 TS 4 MG ON SUNDAY AND SUNDAY OR UTD Quantity: 255 Refills: 0 Ordered: 10-Dec-2011 DO Start : 24-Aug-2011 Active Completed/Discontinued Medications Medication Drug Class(es) Dates Sig (Normalized) Sig (Original) acetaminophen 325 mg / oxyCODONE hydrochloride 5 mg oral tablet (6 sources) Opioid Agonist Start: 12-29-2021 End: 11-24-2024 Oxycodone-Acetamino phen (Percocet) 5-325 mg tablet Discontinued 1 {tbl} PO Q8H as needed for pain 14 3 0 December 29, 2021 November 24, 2024 10:16am Calculus of left ureter Calculus of ureter Start: 07-31-2021 End: 08-05-2021 take 1 tablet by mouth every six hours as needed for pain Percocet 5 mg-325 mg oral tablet Dose = 1 tab(s), Oral, q6h, PRN for pain, X 5 day(s), # 20 tab(s), 0 Refill(s), Kidney stone, 99.1 Start Date: 07/31/21 Stop Date: 08/05/21 Status: Ordered Start: 07-08-2021 End: 07-13-2021 take 1 tablet by mouth every six hours as needed for pain Percocet 5 mg-325 mg oral tablet Dose = 1 tab(s), Oral, q6h, PRN for pain, X 5 day(s), # 20 tab(s), 0 Refill(s), Kidney stone Vertigo, 97 Start Date: 07/08/21 Stop Date: 07/13/21 Status: Ordered albuterol 0.833 mg/ml / ipratropium bromide 0.167 mg/ml inhalation solution (12 sources) Anticholinergic, beta2-Adrenergic Agonist Start: 12-17-2018 take 1 dose by inhalation twice daily Ipratropium-Albuterol 0.5-2.5 (3) MG/3ML Inhalation Solution INHALE 1 VIAL Twice daily Quantity: 0 Refills: 0 Ordered: 17-Dec-2018 DO Start : 17-Dec-2018 Active ascorbic acid 60 mg / beta carotene 5000 unt / copper sulfate 40 mg / dl-alpha tocopheryl acetate 30 unt / sodium selenite 0.04 mg / zinc oxide 40 mg oral tablet (1 source) Vitamin C Start: 11-07-2019 take 1 tablet by mouth once daily Vitamin D3 Complete Oral Tablet TAKE 1 TABLET DAILY. Refills: 0 DO Start : 07-Nov-2019 Active atorvastatin 20 mg oral tablet (20 sources) HMG-CoA Reductase Inhibitor Start: 11-07-2019 End: 10-24-2021 atorvastatin 20 mg oral tablet Dose : 20 mg = 1 tab(s), Oral, qHS, # 90 tab(s), 0 Refill(s), Pharmacy: [facility]/pharmacy #[id number], 160, cm, 07/26/21 11:02:00 EDT, Height, kg, 07/26/21 11:02:00 EDT, Dosing Weight Start Date: 07/26/21 Stop Date: 10/24/21 Status: Ordered calcium carbonate 333 mg / cholecalciferol 133 unt / magnesium oxide 133 mg / zinc oxide 5 mg oral tablet (1 source) Vitamin D Start: 08-28-2013 take 2 tablets by mouth once daily Calcium Citrate + Oral Tablet TAKE 2 TABLET Daily Refills: 0 Kris Yung MD Start : 28-Aug-2013 Active cephalexin 500 mg oral capsule (4 sources) Cephalosporin Antibacterial Start: 12-29-2021 End: 11-24-2024 take 1 capsule by mouth every twelve hours Cephalexin 500 mg capsule Discontinued 500 mg PO EVERY 12 HOURS 6 3 0 December 29, 2021 12:00am November 24, 2024 10:04am post-operative [facility] Motion Sickness 50 MG Oral Tablet (2 sources) Start: 07-08-2021 take 1 tablet by mouth every eight hours as needed [facility] Motion Sickness 50 MG Oral Tablet TAKE 1 TABLET BY MOUTH EVERY 8 HOURS NEEDED FOR MOTION SICKNESS Quantity: 21 Refills: 0 Ordered: 08-Jul-2021 DO Start : 08-Jul-2021 Complete cyclobenzaprine hydrochloride 10 mg oral tablet (2 sources) Muscle Relaxant Start: 12-14-2021 take 1 tablet by mouth once daily at bedtime Cyclobenzaprine HCl - 10 MG Oral Tablet TAKE 1 TABLET BY MOUTH EVERYDAY AT BEDTIME Quantity: 30 Refills: 0 Ordered: 14-Dec-2021 DO Start : 14-Dec-2021 Complete Disability Placard (17 sources) Start: 09-14-2016 Disability Placard pt unable to walk 200 ft valid for 5 years Quantity: 1 Refills: 0 Ordered: 14-Sep-2016 Mari Nicole MD Start : 14-Sep-2016 Active Start: 09-14-2016 Disability Jazmin card pt unable to walk 200 ft valid for 5 years Quantity: 1 Refills: 0 Mari Nicole MD Start : 14-Sep-2016 Active ergocalciferol 58778 unt oral capsule (1 source) Provitamin D2 Compound Start: 05-10-2012 take 1 capsule by mouth every week Vitamin D (Ergocalciferol) 1.25 MG (99730 UT) Oral Capsule TAKE ONE CAPSULE BY MOUTH EVERY WEEK Quantity: 13 Refills: 3 Mari Nicole MD Start : 10-May-2012 Active 30 actuat fluticasone furoate 0.2 mg/actuat / vilanterol 0.025 mg/actuat dry powder inhaler (18 sources) Corticosteroid, beta2-Adrenergic Agonist Start: 01-06-2022 Breo Ellipta 200-25 MCG/INH AEPB Quantity: 0 Refills: 0 Ordered: 06-Jan-2022 DO Start : 06-Jan-2022 Active Start: 12-21-2021 End: 11-24-2024 Fluticasone Furoate-Vilanter ol (Breo Ellipta) 200-25 mcg/dose Blister With Device Discontinued 1 NMA INHALATION DAILY December 21, 2021 12:00am November 24, 2024 10:03am Start: 12-21-2021 Fluticasone Fu roate-Vilanterol (Breo Ellipta) 200-25 mcg/dose Blister With Device Active 1 INH INHALATION DAILY December 21, 2021 12:00am Start: 08-15-2016 Breo Ellipta 2 00-25 MCG/INH Inhalation Aerosol Powder Breath Activated Quantity: 0 Refills: 0 Ordered: 15-Aug-2016 DO Start : 15-Aug-2016 Active lidocaine 0.05 mg/mg medicated patch (2 sources) Antiarrhythmic, Amide Local Anesthetic Start: 11-27-2024 End: 12-28-2024 Lidoderm 5% topical film Apply 1 patch(es), Topical, qDay, PRN As needed for pain, remove patches after 12 hours. Max 1 patch per 24 hours., # 30 patch(es), 0 Refill(s), Pharmacy: [facility]/pharmacy #[id number], 162, cm, 11/28/24 10:23:00 EDT, Height, 88.7, kg, 11/28/24 10:23:00 EDT, Dosing Weight Start Date: 11/28/24 Stop Date: 12/28/24 Status: Ordered Medication Dispense Status: Completed Quantity: 30.0 Unit: patch(es) Total Allowed Fills: 1 Fills Dispensed: 0 meclizine hydrochloride 12.5 mg oral tablet (20 sources) Antiemetic Start: 07-20-2017 take 1 tablet by mouth three times daily as needed for dizziness Meclizine HCl - 12.5 MG Oral Tablet TAKE 1 TABLET 3 TIMES DAILY NEEDED FOR DIZZINESS Quantity: 60 Refills: 1 Ordered: 16-May-2019 Bonnie SHANKAR, Mari Porras Start : 20-Jul-2017 Active meloxicam 15 mg oral tablet (10 sources) Nonsteroidal Anti-inflammatory Drug Start: 12-14-2021 End: 11-24-2024 take 1 tablet by mouth once daily Meloxicam 15 mg tablet Discontinued 15 mg PO DAILY December 21, 2021 12:00am November 24, 2024 10:16am nystatin 100 unt/mg topical powder (20 sources) Polyene Antifungal Start: 12-05-2023 End: 06-02-2024 apply 1 [IU] topically three times daily as needed nystatin 100,000 units/g topical powder Apply 1 cathy, Topical, TID, PRN Rash, # 60 gram(s), 1 Refill(s), Pharmacy: [facility]/pharmacy #[id number], Powder, 163.3, cm, 12/05/23 9:49:00 EDT, Height, 93.3, kg, 12/05/23 9:49:00 EDT, Dosing Weight Start Date: 12/05/23 Stop Date: 06/02/24 Status: Ordered Medication Dispense Status: Completed Quantity: 60.0 Unit: g Total Allowed Fills: 2 Fills Dispensed: 0 Start: 10-06-2021 Nystatin 54821 0 UNIT/GM External Ointment APPLY TO AFFECTED AREA TWICE A DAY FOR 2 WEEKS Quantity: 15 Refills: 0 Ordered: 06-Oct-2021 DO Start : 06-Oct-2021 Complete Start: 08-03-2020 Nystatin 93217 0 UNIT/GM External Powder Quantity: 30 Refills: 0 Ordered: 03-Aug-2020 DO Start : 03-Aug-2020 Complete Start: 08-03-2020 End: 09-02-2020 nystatin 100,000 units/g top ical powder Apply 1 cathy, Topical, BID, PRN Rash, Apply to the affected area 2-3 times daily until healing is complete., # 30 gram(s), 0 Refill(s), [id number] Powder, 160, cm, 08/03/20 9:56:00 EDT, Height, 100.3, kg, 08/03/20 9:56:00 EDT, Dosing Weight Start Date: 08/03/20 Stop Date: 09/02/20 Status: Ordered nystatin 100,000 units/g topical powder (8 sources) Start: 08-03-2020 End: 09-02-2020 nystatin 100,000 units/g topical powder Apply 1 cathy, Topical, BID, PRN Rash, Apply to the affected area 2-3 times daily until healing is complete., # 30 gram(s), 0 Refill(s), Pharmacy: [facility]/pharmacy #[id number], Powder, 160, cm, 08/03/20 9:56:00 EDT, Height, 100.3, kg, 08/03/20 9:56:00 EDT, Dosing... Start Date: 08/03/20 Stop Date: 09/02/20 Status: Ordered ondansetron 8 mg oral tablet (9 sources) Serotonin-3 Receptor Antagonist Start: 12-29-2021 End: 11-24-2024 take 1 tablet by mouth every eight hours as needed for nausea Ondansetron Hcl 8 mg tablet Discontinued 8 mg PO EVERY 8 HOURS NEEDED as needed for Nausea 20 7 0 December 29, 2021 12:00am November 24, 2024 10:16am Start: 11-30-2021 End: 12-03-2021 take 1 tablet by mouth every eight hours Ondansetron HCl - 4 MG Oral Tablet TAKE 1 TABLET BY MOUTH EVERY 8 HOURS Quantity: 8 Refills: 0 Ordered: 02-Dec-2021 DO Start : 30-Nov-2021 Complete Start: 07-31-2021 take 1 tablet by zoya th three times daily Ondansetron 4 MG Oral Tablet Disintegrating TAKE 1 TABLET BY MOUTH 3 TIMES A DAY Quantity: 15 Refills: 0 Ordered: 01-Aug-2021 DO Start : 31-Jul-2021 Complete 24 hr oxybutynin chloride 10 mg extended release oral tablet (2 sources) Cholinergic Muscarinic Antagonist Start: 04-13-2020 take 1 tablet by mouth once daily Oxybutynin Chloride ER 10 MG Oral Tablet Extended Release 24 Hour TAKE 1 TABLET BY MOUTH EVERY DAY Quantity: 30 Refills: 0 Ordered: 13-Apr-2020 DO Start : 13-Apr-2020 Complete phenazopyridine hydrochloride 200 mg oral tablet (4 sources) Start: 12-29-2021 End: 11-24-2024 take 1 tablet by mouth three times daily as needed for muscle spasms Phenazopyridine (Pyridium) 200 mg tablet Discontinued 200 mg PO 3 TIMES DAILY NEEDED as needed for Bladder Spasms 30 7 0 December 29, 2021 12:00am November 24, 2024 10:16am pioglitazone 15 mg oral tablet (1 source) Peroxisome Proliferator Receptor alpha Agonist, Peroxisome Proliferator Receptor gamma Agonist, Thiazolidinedione Start: 07-14-2022 take 1 tablet by mouth once daily Pioglitazone HCl - 15 MG Oral Tablet TAKE 1 TABLET ONCE DAILY. Quantity: 90 Refills: 3 Ordered: 14-Jul-2022 Kris Yung MD Start : 14-Jul-2022 Active polyethylene glycol 3350 50316 mg powder for oral solution (4 sources) Osmotic Laxative Start: 11-28-2024 End: 01-27-2025 take 17 doses by mouth once daily as needed for constipation MiraLax oral powder for reconstitution Dose : 17 gram(s) =, Oral, qDay, PRN Constipation, dissolve in water or juice, # 250 gram(s), 1 Refill(s), Pharmacy: [facility]/pharmacy #[id number], 162, cm, 11/28/24 10:23:00 EDT, Height, kg, 11/28/24 10:23:00 EDT, Dosing Weight Start Date: 11/28/24 Stop Date: 01/27/25 Status: Ordered Medication Dispense Status: Completed Quantity: 250.0 Unit: g Total Allowed Fills: 2 Fills Dispensed: 0 potassium chloride 20 meq extended release oral tablet (2 sources) Start: 08-24-2020 Potassium Chloride ER 20 MEQ Oral Tablet Extended Release Quantity: 30 Refills: 0 Ordered: 28-Aug-2020 DO Start : 24-Aug-2020 Complete sulfamethoxazole 800 mg / trimethoprim 160 mg oral tablet (2 sources) Dihydrofolate Reductase Inhibitor Antibacterial, Sulfonamide Antimicrobial Start: 01-21-2020 take 1 tablet by mouth twice daily Sulfamethoxazole-T rimethoprim 800-160 MG Oral Tablet TAKE 1 TABLET BY MOUTH TWICE A DAY FOR 10 DAYS Quantity: 20 Refills: 0 Ordered: 21-Jan-2020 DO Start : 21-Jan-2020 Complete tamsulosin hydrochloride 0.4 mg oral capsule (18 sources) alpha-Adrenergic Kelly Start: 07-08-2021 take 1 capsule by mouth once daily Tamsulosin HCl - 0.4 MG Oral Capsule TAKE 1 CAPSULE BY MOUTH EVERY DAY Quantity: 7 Refills: 0 Ordered: 02-Dec-2021 DO Start : 02-Dec-2021 Complete Trelegy Ellipta 200-62.5-25 MCG/INH Inhalation Aerosol Powder Breath Activated (3 sources) Start: 10-07-2020 Trelegy Ellipta 200-62.5-25 MCG/INH Inhalation Aerosol Powder Breath Activated Quantity: 60 Refills: 0 Ordered: 07-Oct-2020 DO Start : 07-Oct-2020 Active Vitamin D3 2000 intl units (50 mcg) oral tablet (1 source) Start: 09-21-2020 End: 12-20-2020 Vitamin D3 2000 intl units (50 mcg) oral tablet Dose : 2,000 unit(s) = 1 tab(s), Oral, Daily, # 90 tab(s), 0 Refill(s), Pharmacy: [facility]/pharmacy #[id number], 160, cm, 09/21/20 11:28:00 EDT, Height, kg, 09/21/20 11:28:00 EDT, Dosing Weight Start Date: 09/21/20 Stop Date: 12/20/20 Status: Ordered Vitamin D3 Complete Oral Tablet (1 source) Start: 11-07-2019 take 1 tablet by mouth once daily Vitamin D3 Complete Oral Tablet TAKE 1 TABLET DAILY. Quantity: 0 Refills: 0 Ordered: 07-Nov-2019 DO Start : 07-Nov-2019 Active Problems Active Problems Problem Classification Problem Date Documented Date Episodic/Chronic Abdominal hernia (20 sources) Umbilical hernia; Translations: [Umbilical hernia without mention of obstruction or gangrene] 06-11-2019 Episodic Abdominal pain (19 sources) Epigastric discomfort; Translations: [Abdominal pain, epigastric] 03-12-2025 Episodic Acute bronchitis (1 source) Acute bronchitis; Translations: [Acute bronchitis] Episodic Administrative/social admission (20 sources) Family tension 07-18-2020 Episodic Allergic reactions (20 sources) Contact dermatitis due to poison elba; Translations: [Allergic reaction] 01-02-2024 Episodic Anxiety disorders (20 sources) Anxiety; Translations: [Anxiety state, unspecified] 09-16-2019 Chronic Asthma (18 sources) Asthma; Translations: [Unspecified asthma, uncomplicated] 12-11-2023 Chronic Calculus of urinary tract (20 sources) Kidney stone; Translations: [Calculus of kidney] Onset: 07-08-19 Episodic Cardiac and circulatory congenital anomalies (20 sources) Atrial septal defect; Translations: [Congenital atrial septal defect] 12-11-2023 Chronic Cardiac and circulatory congenital anomalies (1 source) H/O: congenital anomaly; Translations: [Personal history of (corrected) congenital malformations of heart and circulatory system] Episodic Cardiac dysrhythmias (20 sources) Atrial fibrillation; Translations: [Atrial fibrillation] Onset: 08-03-1906-05-2019 Chronic Cardiac dysrhythmias (20 sources) Palpitations; Translations: [Palpitations] 02-16-2022 Episodic Chronic kidney disease (20 sources) Chronic kidney disease stage 3A ; Translations: [Chronic kidney disease, stage 3a] 11-26-2020 Chronic Chronic kidney disease (3 sources) Chronic kidney disease; Translations: [Chronic kidney disease, stage 3a] Onset: 08-03-19 Chronic obstructive pulmonary disease and bronchiectasis (20 sources) Chronic obstructive lung disease; Translations: [Moderate chronic obstructive pulmonary disease] Onset: 08-03-1907-18-2020 Chronic Conditions associated with dizziness or vertigo (20 sources) Dizziness; Translations: [Dizziness and giddiness] Onset: 07-08-19 Episodic Conduction disorders (20 sources) Prolonged QT interval 12-08-2022 Chronic Congestive heart failure; nonhypertensive (20 sources) Heart failure with normal ejection fraction; Translations: [Unspecified diastolic (congestive) heart failure] Onset: 08-03-1908-24-2020 Chronic Diabetes mellitus with complications (20 sources) Dyslipidemia due to type 2 diabetes mellitus; Translations: [Type 2 diabetes mellitus in obese] Onset: 05-18-1912-16-2019 Chronic Comment on above: 06/02 ASCVD risk 29.7 %, placed on statin, 09/30 ASCVD risk 16.7% 06/05 ASCVD risk 13.3 % on statin improved from 34.9% Diabetes mellitus without complication (20 sources) Type 2 diabetes mellitus; Translations: [Type 2 diabetes mellitus controlled by diet] Onset: 12-24-1906-17-2019 Chronic Diabetes mellitus without complication (17 sources) Hyperglycemia 12-11-2023 Episodic Diseases of white blood cells (17 sources) Leukocytosis 12-11-2023 Chronic Disorders of lipid metabolism (20 sources) Hyperlipidemia; Translations: [Other and unspecified hyperlipidemia] 06-01-2022 Chronic Essential hypertension (20 sources) Hypertensive disorder 06-05-2019 Chronic Fluid and electrolyte disorders (18 sources) Dehydration; Translations: [Dehydration] Onset: 12-05-19 Episodic Fracture of upper limb (20 sources) Fracture of radius 11-04-2019 Episodic Genitourinary symptoms and ill-defined conditions (20 sources) Urinary incontinence; Translations: [Unspecified urinary incontinence] Onset: 01-02-2003-09-2020 Chronic Genitourinary symptoms and ill-defined conditions (20 sources) Proteinuria; Translations: [Blood in urine] Onset: 11-07-1903-24-2021 Episodic Headache; including migraine (17 sources) Headache; Translations: [Headache] Episodic Heart valve disorders (20 sources) Pulmonic valve regurgitation 08-24-2020 Chronic Immunizations and screening for infectious disease (20 sources) Anti-nuclear factor positive 06-01-2022 Episodic Inflammation; infection of eye (except that caused by tuberculosis or sexually transmitteddisease) (18 sources) Acute conjunctivitis; Translations: [Bacterial conjunctivitis] Episodic Malaise and fatigue (20 sources) Fatigue; Translations: [Other malaise and fatigue] 06-05-2019 Episodic Menopausal disorders (17 sources) Disorder associated with menstruation AND/OR menopause; Translations: [Unspecified menopausal and postmenopausal disorder] Chronic Mood disorders (20 sources) Depressive disorder; Translations: [Depressive disorder, not elsewhere classified] 07-18-2020 Chronic Mycoses (20 sources) Candidal intertrigo; Translations: [Candidiasis of mouth] 08-03-2020 Episodic Nonmalignant breast conditions (20 sources) Breast lump 08-03-2020 Episodic Nutritional deficiencies (20 sources) Vitamin D deficiency; Translations: [Unspecified vitamin D deficiency] Onset: 11-23-19 24 09-16-2019 Chronic Nutritional deficiencies (13 sources) Cobalamin deficiency 04-08-2024 Episodic Occlusion or stenosis of precerebral arteries (20 sources) Bilateral atherosclerosis of carotid arteries 07-26-2021 Chronic Osteoarthritis (20 sources) Osteoarthritis of right hip joint; Translations: [Osteoarthrosis, unspecified whether generalized or localized, pelvic region and thigh] Onset: 06-29-19 23 11-08-2021 Chronic Osteoporosis (20 sources) Osteoporosis 09-04-2022 Chronic Other acquired deformities (20 sources) Spondylolysis 12-16-2021 Episodic Other aftercare (20 sources) Long-term current use of anticoagulant; Translations: [Long-term (current) use of anticoagulants] Episodic Other aftercare (2 sources) Drug monitoring done; Translations: [Encounter for therapeutic drug level monitoring] Episodic Other aftercare (2 sources) Encounter for therapeutic drug level monitoring Episodic Other aftercare (2 sources) hand nailer (current) use of anticoagulants Episodic Other and ill-defined heart disease (20 sources) Cardiomegaly 10-29-2019 Chronic Comment on above: on CT 06/02 Other and unspecified benign neoplasm (17 sources) Lipoma (clinical); Translations: [Lipoma, unspecified site] Episodic Other and unspecified benign neoplasm (17 sources) Tubular adenoma of colon; Translations: [Benign neoplasm of colon] Episodic Other and unspecified benign neoplasm (17 sources) Benign polyp of colon; Translations: [Benign neoplasm of colon] Episodic Other and unspecified benign neoplasm (20 sources) Lipoma of abdominal wall 06-01-2022 Episodi c Other bone disease and musculoskeletal deformities (20 sources) Osteopenia; Translations: [Disorder of bone and cartilage, unspecified] 11-25-2019 Episodic Comment on above: Based on bone densit y 11/30 Other circulatory disease (17 sources) Low blood pressure; Translations: [Hypotension, unspecified] Episodic Other circulatory disease (20 sources) Respiratory crackles 09-21-2020 Episodic Other connective tissue disease (1 source) Presence of right artificial hip joint; Translations: [Presence of right artificial hip joint] Onset: 06-12-19 Chronic Other connective tissue disease (2 sources) History of total knee arthroplasty; Translations: [Presence of unspecified artificial knee joint] 12-23-2024 Chronic Other connective tissue disease (9 sources) History of total hip arthroplasty 06-27-2020 Chronic Other connective tissue disease (17 sources) Plantar fasciitis; Translations: [Plantar fascial fibromatosis] Episodic Other connective tissue disease (17 sources) Pain in left arm; Translations: [Pain in limb] Episodic Other connective tissue disease (17 sources) H/O: back problem; Translations: [Personal history of other musculoskeletal disorders] Episodic Comment on above: residual back pain; Other connective tissue disease (17 sources) H/O: arthritis; Translations: [Personal history of arthritis] Episodic Other connective tissue disease (17 sources) Calcaneal spur; Translations: [Calcaneal spur] Episodic Other connective tissue disease (16 sources) Inflammation of rotator cuff tendon; Translations: [Disorders of bursae and tendons in shoulder region, unspecified] Episodic Other connective tissue disease (20 sources) Muscle pain 04-02-2020 Episodic Other connective tissue disease (20 sources) Swelling of bilateral feet 08-03-2020 Episodic Other connective tissue disease (20 sources) Cramp in lower limb 04-28-2021 Episodic Other connective tissue disease (20 sources) Recurrent falls ; Translations: [Repeated falls] 11-01-2021 Episodic Other connective tissue disease (20 sources) Partial thickness rotator cuff tear 11-22-2021 Episodic Other connective tissue disease (20 sources) Foot pain 12-08-2022 Episodic Other connective tissue disease (1 source) Synovial cyst of knee; Translations: [Synovial cyst of popliteal space [Peters], unspecified knee] Onset: 06-24-19 Episodic Other diseases of kidney and ureters (20 sources) Hydroureteronephrosis 12-16-2021 Episodic Other diseases of veins and lymphatics (20 sources) Peripheral venous insufficiency; Translations: [Venous insufficiency (chronic) (peripheral)] 12-11-2023 Episodic Other endocrine disorders (17 sources) Hypoparathyroidism; Translations: [Hypoparathyroidism] Chronic Other endocrine disorders (18 sources) Hypoglycemia 12-06-2023 Chronic Other eye disorders (2 sources) Periorbital edema; Translations: [Periorbital edema] Chronic Other eye disorders (17 sources) Eye / vision finding; Translations: [Unspecified visual disturbance] Episodic Other eye disorders (17 sources) Dry eyes; Translations: [Tear film insufficiency, unspecified] Episodic Other female genital disorders (20 sources) Labial cyst 06-05-2022 Episodic Other fractures (20 sources) Compression fracture of thoracic spine; Translations: [Closed fracture of dorsal [thoracic] vertebra without mention of spinal cord injury] 10-29-2019 Episodic Other gastrointestinal disorders (20 sources) Irritable bowel syndrome; Translations: [Irritable bowel syndrome] 12-11-2023 Chronic Other gastrointestinal disorders (17 sources) H/O: gastrointestinal disease; Translations: [Personal history of other diseases of digestive system] Episodic Other gastrointestinal disorders (20 sources) Epigastric mass 01-28-2021 Episodic Other gastrointestinal disorders (4 sources) Constipation 01-01-2025 Episodic Other lower respiratory disease (20 sources) Interstitial lung disease 10-29-2019 Chroni c Other lower respiratory disease (17 sources) Cough; Translations: [Cough] Episodic Other lower respiratory disease (20 sources) Restrictive lung disease; Translations: [Other diseases of lung, not elsewhere classified] 07-18-2020 Episodic Other lower respiratory disease (17 sources) H/O: respiratory disease; Translations: [Personal history of other specified diseases] Episodic Other lower respiratory disease (17 sources) H/O: asthma; Translations: [Personal history of other diseases of respiratory system] Episodic Other lower respiratory disease (20 sources) Dyspnea on exertion 09-16-2019 Episodic Other lower respiratory disease (20 sources) Hilar mass 11-02-2021 Episodic Other nervous system disorders (17 sources) Walking disability; Translations: [Difficulty in walking] Chronic Other nervous system disorders (17 sources) Carpal tunnel syndrome; Translations: [Carpal tunnel syndrome] Chronic Other nervous system disorders (1 source) Unsteady gait; Translations: [Unsteady gait] Episodic Other nervous system disorders (17 sources) Abnormal gait; Translations: [Abnormality of gait] Episodic Other nervous system disorders (20 sources) Difficulty balancing 11-01-2021 Episodic Other nervous system disorders (15 sources) Impairment of balance 01-25-2024 Episodic Other nervous system disorders (3 sources) Numbness and tingling sensation of skin 01-16-2025 Episodic Other non-traumatic joint disorders (20 sources) Arthritis of acromioclavicular joint 11-08-2021 Chronic Other non-traumatic joint disorders (20 sources) Arthritis of shoulder region joint 11-08-2021 Chronic Other non-traumatic joint disorders (20 sources) Hip pain; Translations: [Pain in joint, pelvic region and thigh] 07-18-2020 Episodic Other non-traumatic joint disorders (20 sources) Bilateral pain of joint of hands 11-26-2020 Episodic Other non-traumatic joint disorders (20 sources) Disorder of hand 11-26-2020 Episodic Other non-traumatic joint disorders (20 sources) Shoulder pain; Translations: [Pain in joint, shoulder region] 08-03-2020 Episodic Other non-traumatic joint disorders (1 source) Ankle joint pain; Translations: [Pain in right ankle and joints of right foot] Onset: 06-24-19 Episodic Other non-traumatic joint disorders (8 sources) Multiple joint pain 08-05-2024 Episodic Other nutritional; endocrine; and metabolic disorders (20 sources) Body mass index 30+ - obesity; Translations: [Body Mass Index 38.0-38.9, adult] 02-16-2022 Chronic Other nutritional; endocrine; and metabolic disorders (17 sources) Obesity; Translations: [Obesity, unspecified] Chronic Other nutritional; endocrine; and metabolic disorders (1 source) Other disorders of phosphorus metabolism; Translations: [Other disorders of phosphorus metabolism] Onset: 06-01-19 Chronic Other nutritional; endocrine; and metabolic disorders (20 sources) Hyperphosphatemia 06-01-2022 Chronic Other nutritional; endocrine; and metabolic disorders (17 sources) H/O: raised blood lipids; Translations: [Personal history of other endocrine, metabolic, and immunity disorders] Episodic Other nutritional; endocrine; and metabolic disorders (17 sources) H/O: endocrine disorder; Translations: [Personal history of other endocrine, metabolic, and immunity disorders] Episodic Other nutritional; endocrine; and metabolic disorders (20 sources) Weight gain 06-05-2019 Episodic Other skin disorders (20 sources) Mass of soft tissue; Translations: [Other disorders of soft tissue] 04-20-2015 Episodic Comment on above: NOT RIGHT but LEFT u pper back Other skin disorders (17 sources) Disorder of nail; Translations: [Unspecified disease of nail] Episodic Other skin disorders (17 sources) Swelling around eyes; Translations: [Localized superficial swelling, mass, or lump] Episodic Other skin disorders (20 sources) Foot callus 01-28-2021 Episodic Other skin disorders (20 sources) Localized swelling of right upper limb 08-03-2020 Episodic Other skin disorders (20 sources) Loss of hair 06-05-2019 Episodic Other skin disorders (20 sources) Mass of oral cavity 02-16-2022 Episodic Other upper respiratory disease (17 sources) Seasonal allergy; Translations: [Allergic rhinitis, cause unspecified] Chronic Other upper respiratory infections (15 sources) Sinusitis; Translations: [Unspecified sinusitis (chronic)] Chronic Otitis media and related conditions (1 source) Acute left otitis media; Translations: [Acute left otitis media] Episodic Phlebitis; thrombophlebitis and thromboembolism (20 sources) Superficial thrombophlebitis 06-04-2020 Episodic Pulmonary heart disease (20 sources) Pulmonary hypertension; Translations: [Other chronic pulmonary heart diseases] 09-16-2019 Chronic Pulmonary heart disease (20 sources) Dilatation of pulmonary artery 09-16-2019 Episodic Residual codes; unclassified (20 sources) Obstructive sleep apnea syndrome; Translations: [Obstructive sleep apnea (adult)(pediatric)] 06-05-2019 Chronic Residual codes; unclassified (17 sources) Amnesia; Translations: [Memory loss] Episodic Residual codes; unclassified (20 sources) Postmenopausal state; Translations: [Asymptomatic postmenopausal status (age-related) (natural)] 02-16-2022 Episodic Residual codes; unclassified (17 sources) Memory impairment; Translations: [Memory loss] Episodic Residual codes; unclassified (15 sources) Periorbital edema; Translations: [Edema] Episodic Residual codes; unclassified (15 sources) History of clinical finding in subject; Translations: [Personal history of other specified diseases] Episodic Residual codes; unclassified (20 sources) Peripheral edema 06-04-2020 Episodic Residual codes; unclassified (18 sources) History of repair of atrial septal defect 02-11-2021 Episodic Screening and history of mental health and substance abuse codes (17 sources) H/O: anxiety state; Translations: [Personal history of other mental disorders] Episodic Skin and subcutaneous tissue infections (17 sources) Cellulitis; Translations: [Cellulitis and abscess of unspecified sites] Episodic Spondylosis; intervertebral disc disorders; other back problems (20 sources) Postlaminectomy syndrome, not elsewhere classified; Translations: [Lumbar post-laminectomy syndrome] Onset: 03-12-20 17 04-02-2020 Chronic Thyroid disorders (20 sources) Hypothyroidism; Translations: [Unspecified acquired hypothyroidism] Onset: 11-23-19 24 06-04-2020 Chronic Unclassified (20 sources) History of surgically corrected congenital heart defect 06-05-2019 Unclassified (20 sources) Mild aortic valve regurgitation 08-24-2020 Unclassified (20 sources) Mild tricuspid valve regurgitation 08-24-2020 Unclassified (2 sources) Low back pain, unspecified; Translations: [Low back pain, unspecified] Onset: 06-12-19 Unclassified (17 sources) Glomerular filtration rate decreased 12-11-2023 Unclassified (20 sources) Normal coronary arteries 12-11-2023 Comment on above: December 2010 Unclassified (13 sources) For resuscitation 04-08-2024 Urinary tract infections (17 sources) Urinary tract infectious disease; Translations: [Urinary tract infection, site not specified] Episodic Varicose veins of lower extremity (20 sources) Varicose veins of lower extremity; Translations: [Venous varices] 06-01-2020 Episodic Past or Other Problems Problem Classification Problem Date Documented Date Episodic/Chronic Osteoarthritis (2 sources) Osteoarthritis of right hip joint; Translations: [Osteoarthritis of right hip] Other connective tissue disease (17 sources) History of osteopenia; Translations: [Personal history of other musculoskeletal disorders] Resolved: 10-28-2013 Episodic Other connective tissue disease (1 source) Other shoulder lesions, unspecified shoulder; Translations: [Rotator cuff tendinitis] Episodic Other non-traumatic joint disorders (2 sources) Pain in unspecified joint; Translations: [Pain in unspecified joint] Onset: 08-03-2023 Episodic Other screening for suspected conditions (not mental disorders or infectious disease) (20 sources) Mammographic breast mass; Translations: [Lump or mass in breast] Onset: 08-03-2023 12-16-2019 Episodic Other upper respiratory infections (3 sources) Sinusitis; Translations: [Acute sinusitis] Episodic Spondylosis; intervertebral disc disorders; other back problems (20 sources) Backache with radiation; Translations: [Sciatica] Onset: 11-27-2024 12-16-2019 Episodic Unclassified (10 sources) Patient encounter status; [...] unspecified laterality; Translations: [Foot pain, unspecified laterality] Unclassified (2 sources) Permanent atrial fibrillation NEGATED: Highlighted row has not occurred!Residual codes; unclassified (20 sources) Disease Episodic Results Test Name Value Interpretation Reference Range Facility MR/PAT.[facility] 03-21-2025 MR/PAT.[facility] Medical Records Department [address] [place] [address] PAT - Anesthesia 03/21/25 1232 MR#: [id number] Acct: [id number] Name: RAYMON BAH Rep #: [id number] : 1950 74 From: Hank Deras MD PCP: Dr. 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 When Was Last Pacemaker Check QUESTION #4 FULL TEXT: You/Your Family Experience fever (hyperthermia) with Anesthesia Last Oral Intake Last Oral intake: Last Oral Intake NPO since Meds taken in AM with sips of water? Meds patient instructed to take am of surgery PONV PONV - hard metals hand engraver: PONV - hard metals hand engraver Female Yes 03/20/25 13:50 HX of Motion Sickness No 03/20/25 13:50 HX of N/V After Surgery No 03/20/25 13:50 Non-Smoker Yes 03/20/25 13:50 Duration of Surgery greater No 03/20/25 13:50 than 60 minutes Number of Risk Factors 2 03/20/25 13:50 PONV Score Moderate Risk 03/20/25 13:50 Height Weight Height Weight: Anesthesia: Height Weight Height 5 ft 4 in 12/22/24 16:48 Respiratory Assessment Respiratory Assessment - hard metals hand engraver: Respiratory Tract Infection Hx - hard metals hand engraver Hx Respiratory Tract Infection No 03/20/25 13:50 STOP Sleep Apnea STOP Sleep Apnea - hard metals hand engraver: STOP Sleep Apnea - hard metals hand engraver Hx Hypertension Yes: CONTROLLED WITH MED 03/20/25 13:50 Hx Sleep Apnea Yes 03/20/25 13:50 CPAP Yes 03/20/25 13:50 BIPAP No 03/20/25 13:50 Do you snore loudly (louder than talking or can be heard Do you often feel tired/ fatigued/ sleepy during daytime? Has anyone observed you stop breathing during sleep? STOP Results Positive 03/20/25 13:50 QUESTION #5 FULL TEXT : Do you snore loudly (louder than talking or can be heard through closed doors)? 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 Specify any problems Hx of Preganancy in last 3 No 03/20/25 13:50 Months Nurse Filling Out Transfusion DSCHRIBER 03/20/25 13:50 Questions: Date: 03/20/25 03/20/25 13:50 Time: 13:51 03/20/25 13:50 Patient unable to answer at this time (ie. confused, unrespo /Reproduction History /Reproductive History - hard metals hand engraver: /Reproductive Hx- hard metals hand engraver Hx Now No 03/20/25 13:50 Gestational Age (in weeks): EDC: Hx Hx Para Hx Section SAB No 03/20/25 13:50 Does the father of the baby or his family experience fever w Father of the baby Malignant Hypertension history comment REPLACED BY [facility] Medical History (Updated 03/20/25 @ 13:58 by Julianne Mccauley) History of echocardiogram Post-menopausal Diabetes Left ureteral stone PONV (postoperative nausea and vomiting) Wears hearing aid Wears glasses Thyroid disease Arthritis High cholesterol History of IBS CPAP (continuous positive airway pressure) dependence Hypertension Cardiology follow-up encounter History of atrial fibrillation Home Medications ???Medication ???Instructions ???Recorded ???Last Taken ???Type calcium citrate 500 mg (2,376 mg) 500 mg PO DAILY 12/21/21 12/19/24 History effervescent tablet cholecalciferol (vitamin D3) 50 50 mcg PO DAILY 12/21/21 12/19/24 History mcg (2,000 unit) tablet escitalopram oxalate 10 mg tablet 20 mg PO DAILY 12/21/21 12/21/24 History furosemide (more content not included)... Normal [facility] LaboratoryOrdered By: Edwin Méndez on 03-17-2025 INR Coag (Bld) [Relative time] 2.8 {INR} [facility] Work Phone: MRI SPINE LUMBAR W/O CONTRAS Ton 03-16-2025 MRI SPINE LUMBAR W/O CONTRAST ORIGINAL EXAMINATION: MRI OF THE LUMBAR SPINE WITHOUT CONTRAST TECHNIQUE: MRI examination of the lumbar spine was obtained utilizing the following sequences: Sagittal and axial T1-weighted, sagittal and axial T2-weighted, and sagittal STIR images COMPARISON: X-ray 11/27/2024 and MRI 08/06/2023 HISTORY: ORDERING SYSTEM PROVIDED HISTORY: Reason for Exam: pars defect new on xray, low back pain FINDINGS: Segmentation: For this report, the last well formed disc is labeled L5-S1. Alignment: There is slight retrolisthesis of L2 on L3, L3 on L4, and L4 on L5. There is grade 1 anterolisthesis of L5 on S1. Vertebral bodies: There are L3-L5 laminectomies. There is a mild chronic compression fracture at T12. There are pars defects at L5. Vertebral body heights are intact. There is disc space narrowing throughout, most prominently at L2-L3. Bone marrow: Normal. Distal cord and conus: Normal. The conus terminates at T12-L1. Cauda equina: Normal. L1-L2 : Posterior disc bulge with mild compression of the anterior thecal sac. No facet joint arthropathy is demonstrated. The central canal and foramina are adequately patent. L2-L3 : Mild compression of the anterior thecal sac secondary to retrolisthesis. Mild facet joint arthropathy is seen. L3-L4 : Laminectomy changes are noted. There is mild facet hypertrophy. There is moderate to severe neural foraminal narrowing on both sides. L4-L5 :Laminectomy changes are noted. Posterior disc osteophyte complex and [id number] facet arthropathy without significant canal stenosis. There is moderate neural foraminal narrowing on both sides. L5-S1 : Moderate posterior disc bulge/pseudo bulge. Moderate facet hypertrophy. Moderate facet joint arthropathy is demonstrated with mild bilateral neural foraminal narrowing. Paraspinal musculature: Normal. Visualized abdomen and pelvis: A simple renal cyst is noted at the right renal midpole. Additional comment: None. IMPRESSION: Multilevel degenerative changes with retrolisthesis at multiple levels, with superimposed lower lumbar laminectomies. No significant stenosis, although there is neural foraminal narrowing at multiple levels. Chronic vertebral body compression deformity at T12 and bilateral L5-S1 pars defects. I have personally reviewed the images of this examination and agree with the resident's findings and interpretation. Interpreted by: Aron Molina MD Preliminary Report By: Elaine Pierre Electronically signed By Aron Molina MD Dictated Date: 03/16/2025 2:22:21 PM Prelim Date: 03/16/2025 4:01:46 PM Sign Date: 03/16/2025 4:01:46 PM Ordering Provider: FOREIGN ELLINGTON Normal [facility] No Panel Informationon 03-12 Culture Urine <10,000 cfu/ml. No Significant growth. Sensitivity not indicated. [facility] Work Phone: LaboratoryOrdered By: Edwin Méndez on 03-02-2025 INR Coag (Bld) [Relative time] 2.6 {INR} [facility] Work Phone: ERTAPENEM:SUSC:PT:ISOLATE:OR DQN:MICon 02-28-2025 Ertapenem BONNIE [Susc] >100,000 cfu/ml Escherichia coli [facility] Work Phone: Ertapenem BONNIE [Susc]on 02-28 Escherichia coli Escherichia coli [facility] Work Phone: LaboratoryOrdered By: Tanya Almonte on 02-18-2025 INR Coag (Bld) [Relative time] 2.0 {INR} [facility] Work Phone: LaboratoryOrdered By: Belinda fuller on 02-04-2025 INR Coag (Bld) [Relative time] 2.7 {INR} [facility] Work Phone[facility] Clinical Summary LYNN RAYMON Chrissie :1950 Registration Date:01/26/2025 Ambulatory Visit Instructions Your Diagnosis WHO group 1 pulmonary arterial hypertension Atrial septal defect H/O closure of congenital atrial septal defect by percutaneous transcatheter technique Atrial fibrillation, permanent Asthma HLD (hyperlipidemia) Chronic venous insufficiency Normal coronary arteries Obstructive sleep apnea treated with continuous positive airway pressure (CPAP) Your Care Team Attending Physician - ANSHU DAMON MD Referring Physician - ANSHU DAMON MD Procedures Performed Right Heart Cardiac Catheterization, left ventricle pressures (07/17/2023) Coronary Angiograms. (12/28/2020) Left and Right Heart Catheterization, left ventriculogram. (12/28/2020) LEFT UPPER BACK SOFT TISUUE MASS EXCISION (04/27/2015) History of ASD-surgery done to repair hole. Parathyroids removed (2) LEFT total hip replacement Back operation RIGHT total hip replacement Hysterectomy Discharge Vitals Blood Pressure 120/64 Height 64.17 in (163 cm) Weight 189.63 lb (86 kg) BMI 32.37 Systolic Blood Pressure: 120 mmHg (01/26/25:28:00) Diastolic Blood Pressure: 64 mmHg (01/26/25:28:) Mean Arterial Pressure: 83 mmHg (01/26/25 10:28:) Height/Length Measured: 163 cm (01/26/25::) Weight Measured: 86 kg (01/26/25 10::) Body Mass Index Measured: 32.37 kg/m2 (01/26/25 10::) Weight Measured - lbs2: 189.5 lb (01/26/25::) Height/Length Measured - in2: 64 in (01/26/25::) Body Mass Index Measured English2: 32.52 kg/m2 (01/26/25::) BSA: 1.97 m2 (01/26/25::) Ht/Wt Measurement Refused by Patient?2: No (01/26/25::) What to do next Scheduled Follow-Up Appointments Appointment Type Reason for visit Day With Date Time Where [facility] Echocardiogram PAH, ASD, ASD closure, Chronic a-fib, asthma, HLD, Chronic vensous insufficiency, DEUCE Sunday ECHO - SW OFFICE June 08, 2025 12:15 pm EDT [facility] [address] [facility] ZIP:[id number] [facility] Pulmonary Hypertension w/6 MWT PAH, ASD, ASD closure, Chronic a-fib, asthma, HLD, Chronic vensous insufficiency, DEUCE Sunday Anshu Damon MD June 08, 2025 01:30 pm EDT [facility] [address] ZIP: [facility] Pulmonary Hypertension w/6 MWT PAH, ASD, ASD closure, Chronic a-fib, asthma, HLD, Chronic vensous insufficiency, DECUE Sunday Anshu Damon MD June 08, 2025 02:00 pm EDT [facility] [address] ZIP: Medications What How Much When Instructions Unchanged ascorbic acid (Vitamin C 500 mg oral tablet) 1 Tabs Oral DAILY Contact prescribing physician if questions or concerns Unchanged calcium citrate (calcium citrate 950 mg (200 mg elemental calcium) oral tablet) 1 Tabs Oral DAILY Contact prescribing physician if questions or concerns Unchanged cholecalciferol (Vitamin D3 2000 intl units (50 mcg) oral capsule) 1 Capsules Oral DAILY Contact prescribing physician if questions or concerns Unchanged cyanocobalamin (Vitamin B12 1000 mcg oral tablet) 1 Tabs Oral DAILY Contact prescribing physician if questions or concerns Unchanged dilTIAZem (dilTIAZem 300 mg/ 24 hours oral tablet, extended release) 1 Tabs Oral DAILY Contact prescribing physician if questions or concerns Unchanged docusate (docusate sodium 100 mg oral tablet) 1 Tabs Oral DAILY Contact prescribing physician if questions or concerns Unchanged escitalopram (escitalopram 10 mg oral tablet) 1 Tabs Oral DAILY Contact prescribing physician if questions or concerns Unchanged escitalopram (escitalopram 20 mg oral tablet) 1 Tabs Oral DAILY Contact prescribing physician if questions or concerns Unchanged escitalopram (escitalopram 5 mg oral tablet) 1 Tabs Oral DAILY Contact prescribing physician if questions or concerns Unchanged fluticasone (Arnuity Ellipta 100 mcg/ inh inhalation powder) Inhalation EVERY TWENTYFOUR HOURS Contact prescribing physician if questions or concerns Unchanged furosemide (furosemide 20 mg oral tablet) 1 Tabs Oral DAILY Contact prescribing physician if questions or concerns Unchanged levothyroxine (Synthroid 100 mcg (0.1 mg) oral tablet) 1 Tabs Oral DAILY Contact prescribing physician if questions or concerns Unchanged rosuvastatin (rosuvastatin 10 mg oral capsule) 1 Capsules Oral DAILY Contact prescribing physician if questions or concerns Unchanged semaglutide (Rybelsus 7 mg oral tablet) 7 Milligram Oral DAILY take at least 30 minutes before first food, beverage, or other oral meds Contact prescribing physician if questions or concerns Unchanged warfarin = Jantoven, Coumadin (warfarin 2 mg oral tablet) See instructions Take by mouth daily as directed by [facility] (currently takes 3 tablets PO daily). 270 tabs for 90 day supply, 1RF. For questions call [facility] at [phone] (more content not included)... Normal [facility] Pulm Hypertension Provider P tj Hoyos 01-26-2025 Pul Hypertension Provider Progress Note RAYMON BAH V :1950 [facility]:[id number] Registration Date:01/26/2025 Assessment/Plan Patient is a 74-year-old female with a history of WHO group 1 pulmonary arterial hypertension and hypothyroidism presenting today for follow-up and evaluation of fatigue. This Visit Diagnosis 1. WHO group 1 pulmonary arterial hypertension I27.21 Stable. Most recent cath in July 2023 showed stable hemodynamics from 2020, but improved from 2010 (which was when her ASD was closed). RA was 8 mm Hg, mean PA 21 mm Hg, CI 2.3 L/min/m sq, and PVR 2.0 Phillips. We added sildenafil at that time but then discontinued about a month later due to side effects. - Condition remains stable based on recent walk test and hemodynamic numbers, with no evidence of deterioration compared to prior assessments. - Patient used a walker during the walk test; reduced distance may be attributable to other physical issues including recent right TKA rather than progression of pulmonary hypertension. Ordered: AMB Ancillary Order - Echocardiogram, 01/26/2025, Order For Future Visit AMB Follow - Up Appt Amb, 01/26/2025 11:22:00 EDT, 4 months AMB Office/Outpt Est Pt Mod MDM / 30 min 12737, 01/26/2025 11:07:00 EDT, WHO group 1 pulmonary arterial hypertension / Atrial septal defect / H/O closure of congenital atrial septal defect by percutaneous transcatheter technique / Atrial fibrillation, permanent / Asthma / HLD (hyperlipidemia) / Chr... 2. Atrial septal defect Q21.10 S/p asd closure in 2010. F/u echo prior to the next visit in 4 months. Ordered: AMB Ancillary Order - Echocardiogram, 01/26/2025, Order For Future Visit AMB Follow - Up Appt Amb, 01/26/2025 11:22:00 EDT, 4 months AMB Office/Outpt Est Pt Mod MDM / 30 min [id number], 01/26/2025 11:07:00 EDT, WHO group 1 pulmonary arterial hypertension / Atrial septal defect / H/O closure of congenital atrial septal defect by percutaneous transcatheter technique / Atrial fibrillation, permanent / Asthma / HLD (hyperlipidemia) / Chr... 3. H/O closure of congenital atrial septal defect by percutaneous transcatheter technique Z87.74 As above. Ordered: AMB Ancillary Order - Echocardiogram, 01/26/2025, Order For Future Visit AMB Follow - Up Appt Amb, 01/26/2025 11:22:00 EDT, 4 months AMB Office/Outpt Est Pt Mod MDM / 30 min 93605, 01/26/2025 11:07:00 EDT, WHO group 1 pulmonary arterial hypertension / Atrial septal defect / H/O closure of congenital atrial septal defect by percutaneous transcatheter technique / Atrial fibrillation, permanent / Asthma / HLD (hyperlipidemia) / Chr... 4. Atrial fibrillation, permanent I48.21 Stable, continue rate control with diltiazem 300 mg daily and anticoagulation with warfarin. Ordered: AMB Ancillary Order - Echocardiogram, 01/26/2025, Order For Future Visit AMB Follow - Up Appt Amb, 01/26/2025 11:22:00 EDT, 4 months AMB Office/Outpt Est Pt Mod MDM / 30 min [id number], 01/26/2025 11:07:00 EDT, WHO group 1 pulmonary arterial hypertension / Atrial septal defect / H/O closure of congenital atrial septal defect by percutaneous transcatheter technique / Atrial fibrillation, permanent / Asthma / HLD (hyperlipidemia) / Chr... 5. Asthma J45.909 Ordered: AMB Ancillary Order - Echocardiogram, 01/26/2025, Order For Future Visit AMB Follow - Up Appt Amb, 01/26/2025 11:22:00 EDT, 4 months AMB Office/Outpt Est Pt Mod MDM / 30 min [id number], 01/26/2025 11:07:00 EDT, WHO group 1 pulmonary arterial hypertension / Atrial septal defect / H/O closure of congenital atrial septal defect by percutaneous transcatheter technique / Atrial fibrillation, permanent / Asthma / HLD (hyperlipidemia) / Chr... 6. HLD (hyperlipidemia) E78.5 Continue rosuvastatin 10 mg daily. She has her routine labs with her pcp. Ordered: AMB Ancillary Order - Echocardiogram, 01/26/2025, Order For Future Visit AMB Follow - Up Appt Amb, 01/26/2025 11:22:00 EDT, 4 months AMB Office/Outpt Est Pt Mod MDM / 30 min [id number], 01/26/2025 11:07:00 EDT, WHO group 1 pulmonary arterial hypertension / Atrial septal defect / H/O closure of congenital atrial septal defect by percutaneous transcatheter technique / Atrial fibrillation, permanent / Asthma / HLD (hyperlipidemia) / Chr... 7. Chronic venous insufficiency I87.2 Ordered: AMB Ancillary Order - Echocardiogram, 01/26/2025, Order For Future Visit AMB Follow - Up Appt Amb, 01/26/2025 11:22:00 EDT, 4 months AMB Office/Outpt Est Pt Mod MDM / 30 min [id number], 01/26/2025 11:07:00 EDT, WHO group 1 pulmonary arterial hypertension / Atrial septal defect / H/O closure of congenital atrial septal defect by percutaneous transcatheter technique / Atrial fibrillation, permanent / Asthma / HLD (hyperlipidemia) / Chr... 8. Normal coronary arteries Z03.89 Ordered: AMB Ancillary Order - Echocardiogram, 01/26/2025, Order For Future Visit AMB Follow - Up Appt Amb, 01/26/2025 11:22:00 EDT, 4 months AMB Office/Outpt Est Pt Mod MDM / 30 min [id number], 01/26/2025 11:07:00 EDT, WHO group 1 pulmonary (more content not included)... Normal [facility] .Auto Diffon 01-01-2025 Basophil, Absolute 0.0 10 3/mcL Normal 0.0-0.3 [facility] Comment on above: Performed By: #### A DIFF, GFR, CBC, BMP, ANEU ####[place] [address] [place], [place] [address] Basophils/100 WBC (Bld) 0.4 % Normal 0.0-2.[address] [facility] Comment on above: Performed By: #### A DIFF, GFR, CBC, BMP, ANEU ####[facility] [place], [place] [address] Eosinophil, Absolute 0.1 10 3/mcL Normal 0.0-0.7 [facility] Comment on above: Performed By: #### A DIFF, GFR, CBC, BMP, ANEU ####[facility] [place], [place] [address] Eosinophils/100 WBC (Bld) 1.7 % Normal 0.0-6.[address] [facility] Comment on above: Performed By: #### A DIFF, GFR, CBC, BMP, ANEU ####[facility] [place], [place] [address] Lymphocyte, Absolute 1.4 10 3/mcL Normal 0.9-4.3 [facility] Comment on above: Performed By: #### A DIFF, GFR, CBC, BMP, ANEU ####[place] [address] [place], [place] [address] Lymphocytes/100 WBC (Bld) 17.2 % Low 20.0-40.[address] [facility] Comment on above: Performed By: #### A DIFF, GFR, CBC, BMP, ANEU ####[facility] [place], [place] [address] Monocyte, Absolute 0.8 10 3/mcL Normal 0.1-1.4 [facility] Comment on above: Performed By: #### A DIFF, GFR, CBC, BMP, ANEU ####[facility] [place], [place] [address] Monocytes/100 WBC (Bld) 9.0 % Normal 2.0-13.[address] [facility] Comment on above: Performed By: #### A DIFF, GFR, CBC, BMP, ANEU ####[place] [address] [place], [place] [address] Neutrophils/100 WBC (Bld) 71.7 % Normal 50.0-75.[address] [facility] Comment on above: Performed By: #### A DIFF, GFR, CBC, BMP, ANEU ####[facility] [place], [place] [address] .GFRon 01-01-2025 Estimated Glomerular Filtration Rate 91 ml/min/1.73sqm Normal [facility] Comment on above: Result Comment: Stages of Chronic Kidney Disease (CKD) Stage Description eGFR(ml/min/1.73 sq.m.) CKD 1 Normal kidney function or >=90 normal kindney function with possible kidney damage (ex. Proteinuria) CKD 2 Kidney damage with mild loss 60-89 of kidney function CKD 3a Mild to moderate loss of kidney 45-59 function CKD 3b Moderate to severe loss of 30-44 of kindey function CKD 4 Severe loss of kidney function 15-29 CKD 5 Kidney failure <15 Note: (go live 2024) the eGFR calculation was updated to the 2020 CKD-EPI creatinine equation without a race factor to calculate the eGFR results. Performed By: #### A DIFF, GFR, CBC, BMP, ANEU ####[address] [address] .NEUABSon 01-01-2025 Neutrophil, Absolute 5.9 10 3/mcL Normal 2.3-8.1 [facility] Comment on above: Performed By: #### A DIFF, GFR, CBC, BMP, ANEU ####[place] [address] [place], [place] [address] BMPon 01-01-2025 BUN/Creatinine Ratio 15 ratio Normal 7-27 [facility] Comment on above: Performed By: #### A DIFF, GFR, CBC, BMP, ANEU ####[address] [address] Calcium [Mass/Vol] 10.2 mg/dL Normal 8.4-10.2 [facility] Comment on above: Performed By: #### A DIFF, GFR, CBC, BMP, ANEU ####[address] [address] Chloride [Moles/Vol] 103 mmol/L Normal 98-107 [facility] Comment on above: Performed By: #### A DIFF, GFR, CBC, BMP, ANEU ####[address] [address] CO2 [Moles/Vol] 29 mmol/L Normal 23-[address] [facility] Comment on above: Performed By: #### A DIFF, GFR, CBC, BMP, ANEU ####[address] [address] Creatinine [Mass/Vol] 0.66 mg/dL Normal 0.51-0.95 [facility] Comment on above: Performed By: #### A DIFF, GFR, CBC, BMP, ANEU ####[address] [address] Electrolyte Balance 9.0 mEq/L Normal 4.0-15.0 [facility] Comment on above: Performed By: #### A DIFF, GFR, CBC, BMP, ANEU ####[address] [address] Glucose [Mass/Vol] 138 mg/dL High 83-110 [facility] Comment on above: Performed By: #### A DIFF, GFR, CBC, BMP, ANEU ####[place] [address] Potassium [Moles/Vol] 3.7 mmol/L Normal 3.5-5.1 [facility] Comment on above: Performed By: #### A DIFF, GFR, CBC, BMP, ANEU ####[place] [address] Sodium [Moles/Vol] 141 mmol/L Normal 136-145 [facility] Comment on above: Performed By: #### A DIFF, GFR, CBC, BMP, ANEU ####[place] [address] Urea nitrogen [Mass/Vol] 10 mg/dL Normal 7-[address] [facility] Comment on above: Performed By: #### A DIFF, GFR, CBC, BMP, ANEU ####[place] [id number] CBCon 01-01-2025 Erythrocyte distribution width (RBC) [Ratio] 14.1 % Normal 11.5-15.[address] [facility] Comment on above: Performed By: #### A DIFF, GFR, CBC, BMP, ANEU ####[address] [address] Hematocrit (Bld) [Volume fraction] 40.7 % Normal 34.0-46.[address] [facility] Comment on above: Performed By: #### A DIFF, GFR, CBC, BMP, ANEU ####[place] [id number] Hgb 13.7 G/dL Normal 12.0-16.[address] [facility] Comment on above: Performed By: #### A DIFF, GFR, CBC, BMP, ANEU ####[place] [address] MCH (RBC) [Entitic mass] 30.5 pg Normal 27.0-33.[address] [facility] Comment on above: Performed By: #### A DIFF, GFR, CBC, BMP, ANEU ####[place] [address] [place], [place] [address] MCHC 33.7 G/dL Normal 32.0-36.[address] [facility] Comment on above: Performed By: #### A DIFF, GFR, CBC, BMP, ANEU ####[place] [address] [place], [place] [address] MCV (RBC) [Entitic vol] 90.4 fL Normal 80.0-99.[address] [facility] Comment on above: Performed By: #### A DIFF, GFR, CBC, BMP, ANEU ####[address] [address] Platelet 263 10 3/mcL Normal 150-[address] [facility] Comment on above: Performed By: #### A DIFF, GFR, CBC, BMP, ANEU ####[address] [address] Platelet mean volume (Bld) [Entitic vol] 7.6 fL Normal 6.6-10.[address] [facility] Comment on above: Performed By: #### A DIFF, GFR, CBC, BMP, ANEU ####[address] [address] RBC 4.50 10 6/mcL Normal 4.10-5.[address] [facility] Comment on above: Performed By: #### A DIFF, GFR, CBC, BMP, ANEU ####[address] [address] WBC 8.3 10 3/mcL Normal 4.5-10.[address] [facility] Comment on above: Performed By: #### A DIFF, GFR, CBC, BMP, ANEU ####[place] [address] [place], [place] [address] LABORATORYOrdered By: SYSTEM SYSTEM on 01-01-2025 Basophils (Bld) [#/Vol] 0.0 103/mcL Normal 0.0 - 0.3 10^3/mcL AO Workflow SS Basophils/100 WBC (Bld) 0.4 % Normal 0.0 - 2.5 % AO Workflow SS Calcium [Mass/Vol] 10.2 mg/dL Normal 8.4 - 10. 2 mg/dL AO ADM SS Chloride [Moles/Vol] 103 mmol/L Normal 98 - 10 7 mmol/L AO ADM SS CO2 [Moles/Vol] 29 mmol/L Normal 23 - 31 mmol/L AO ADM SS Creatinine [Mass/Vol] 0.66 mg/dL Normal 0.51 - 0.95 mg/dL AO ADM SS Electrolyte Balance 9.0 mEq/L Normal 4.0 - 15 .0 mEq/L AO ADM SS Eosinophil, Absolute 0.1 103/mcL Normal 0.0 - 0 .7 10^3/mcL AO Workflow SS Eosinophils/100 WBC (Bld) 1.7 % Normal 0.0 - 6.0 % AO Workflow SS Erythrocyte distribution width (RBC) [Ratio] 14.1 % Normal 11.5 - 15.5 % AO Workflow SS Estimated Glomerular Filtration Rate 91 ml/min/1.73sqm Invalid Interpretation Code AO Chemistry S Comment on above: Interpretive Data: Stages of Chronic Kidney Disease (CKD) Stage Description eGFR(ml/min/1.73 sq.m.) CKD 1 Normal kidney function or >=90 normal kindney function with possible kidney damage (ex. Proteinuria) CKD 2 Kidney damage with mild loss 60-89 of kidney function CKD 3a Mild to moderate loss of kidney 45-59 function CKD 3b Moderate to severe loss of 30-44 of kindey function CKD 4 Severe loss of kidney function 15-29 CKD 5 Kidney failure <15 Note: (go live 2024) the eGFR calculation was updated to the 2020 CKD-EPI creatinine equation without a race factor to calculate the eGFR results. Glucose [Mass/Vol] 138 mg/dL High 83 - 110 mg/dL AO ADM SS Hematocrit (Bld) [Volume fraction] 40.7 % Normal 34.0 - 46.0 % AO Workflow SS Hemoglobin (Bld) [Mass/Vol] 13.7 G/dL Normal 12.0 - 16.0 G/dL AO Workflow SS Lymphocytes (Bld) [#/Vol] 1.4 103/mcL Normal 0.9 - 4.3 10^3/mcL AO Workflow SS Lymphocytes/100 WBC (Bld) 17.2 % Low 20.0 - 40.0 % AO Workflow SS MCH (RBC) [Entitic mass] 30.5 pg Normal 27.0 - 33.0 pg AO Workflow SS MCHC 33.7 G/dL Normal 32.0 - 36.0 G/dL AO Workflow SS MCV (RBC) [Entitic vol] 90.4 fL Normal 80.0 - 99.0 fL AO Workflow SS Monocytes (Bld) [#/Vol] 0.8 103/mcL Normal 0.1 - 1.4 10^3/mcL AO Workflow SS Monocytes/100 WBC (Bld) 9.0 % Normal 2.0 - 13.0 % AO Workflow SS Neutrophils (Bld) [#/Vol] 5.9 103/mcL Normal 2.3 - 8.1 10^3/mcL AO Workflow SS Neutrophils/100 WBC (Bld) 71.7 % Normal 50.0 - 75.0 % AO Workflow SS Platelet mean volume (Bld) [Entitic vol] 7.6 fL Normal 6.6 - 10.5 fL AO Workflow SS Platelets (Bld) [#/Vol] 263 103/mcL Normal 150 - 450 10^3/mcL AO Workflow SS Potassium [Moles/Vol] 3.7 mmol/L Normal 3.5 - 5.1 mmol/L AO ADM SS RBC (Bld) [#/Vol] 4.50 106/mcL Normal 4.10 - 5.3 0 10^6/mcL AO Workflow SS Sodium [Moles/Vol] 141 mmol/L Normal 136 - 145 mmol/L AO ADM SS Urea nitrogen [Mass/Vol] 10 mg/dL Normal 7 - 18 mg/dL AO ADM SS Urea nitrogen/Creatinine [Mass ratio] 15 ratio Normal 7 - 27 ratio AO ADM SS WBC (Bld) [#/Vol] 8.3 103/mcL Normal 4.5 - 10.8 10^3/mcL AO Workflow SS No Panel Informationon 01-01 Microscopic examination of blood, culture Culture has been received in lab and is no growth to date. Routine cultures are held for 5 days. [facility] Work Phone: Anion gap in Serum or Plasma Ordered By: Yossi Burnette on 12-23-2024 Anion gap [Moles/Vol] 14 mmol/L 5-15 [facility] BUN/creatinine ratioOrdered By: Yossi Burnette on 12-23-2024 Urea nitrogen/Creatinine [Mass ratio] 16.5 mg/mg - [facility] [place] [facility] Basic Metabolic Profile (BMP )on 12-23-2024 BUN/CRE 16.5 RATIO Normal - [facility] [place] [facility] Comment on above: Performed By: #### L 100.0500, L500.2500 #### [facility] [place] [facility] [address] [place], [address] Calcium [Mass/Vol] 9.0 mg/dL Normal 7.6-11.0 [facility] Comment on above: Performed By: #### L 100.0500, L500.2500 #### [facility] [place] [facility] [address] [place], [address] Chloride [Moles/Vol] 103 mmol/L Normal 98-108 [facility] Comment on above: Performed By: #### L 100.0500, L500.2500 #### [facility] [place] [facility] [address] [place], [address] CO2 [Moles/Vol] 19.3 mmol/L Low 21.0-32.0 [facility] [place] [facility] Comment on above: Performed By: #### L 100.0500, L500.2500 #### [facility] [place] [facility] [address] [place], [address] Creatinine [Mass/Vol] 0.72 mg/dL Normal 0.70-1.20 [facility] Comment on above: Performed By: #### L 100.0500, L500.2500 #### [facility] [place] [facility] [address] [place], [address] ECRCL 63.49 ml/min Normal 50-250 [facility] [place] [facility] Comment on above: Performed By: #### L 100.0500, L500.2500 #### [facility] [place] [facility] [address] [place], [address] GAP 14 Normal 5-15 [facility] [place] [facility] Comment on above: Performed By: #### L 100.0500, L500.2500 #### [facility] [place] [facility] [address] [place], [address] GFR/1.73 sq M.predicted among non-blacks MDRD (S/P/Bld) [Vol rate/Area] 87 mL/min/{1.73_m2} Normal >60 [facility] [place] [facility] Comment on above: Result Comment: mL/m in/1.73m2 CKD-EPI Creatinine Equation (2020) Performed By: #### L 100.0500, L500.2500 #### [facility] [place] [facility] [address] [place], [address] Glucose [Mass/Vol] 255 mg/dL High 70-99 [facility] Comment on above: Performed By: #### L 100.0500, L500.2500 #### [facility] [place] [facility] [address] [place], [address] Potassium [Moles/Vol] 4.2 mmol/L Normal 3.3-5.1 [facility] Comment on above: Performed By: #### L 100.0500, L500.2500 #### [facility] [place] [facility] [address] [place], [address] Sodium [Moles/Vol] 136 mmol/L Normal 133-145 [facility] Comment on above: Performed By: #### L 100.0500, L500.2500 #### [facility] [place] [facility] [address] [place], [address] Urea nitrogen [Mass/Vol] 12 mg/dL Normal 4-19 [facility] [place] [facility] Comment on above: Performed By: #### L 100.0500, L500.2500 #### [facility] [place] [facility] [address] [place], [address] Bedside Glucoseon 12-23-2024 FINGERSTICK GLU 268 mg/dL High 74-106 [facility] [place] [facility] Comment on above: Result Comment: MARISA GEMENT OF PATIENT CARE PER NURSING PROTOCOL Performed By: #### L 501.080 #### [facility] [place] [facility] [address] [place], [address] FINGERSTICK GLU 237 mg/dL High 74-106 [facility] [place] [facility] Comment on above: Result Comment: MARISA GEMENT OF PATIENT CARE PER NURSING PROTOCOL Performed By: #### L 501.080 #### [facility] [place] [facility] [address] [place], [address] CBC-Complete Blood Cnt No Di ffon 12-23-2024 Erythrocyte distribution width (RBC) [Ratio] 13.1 % Normal 11.6-14.6 [facility] [place] [facility] Comment on above: Performed By: #### L 100.0500, L500.2500 #### [facility] [place] [facility] [address] [place], [address] Hematocrit (Bld) [Volume fraction] 39.9 % Normal 37-47 [facility] [place] [facility] Comment on above: Performed By: #### L 100.0500, L500.2500 #### [facility] [place] [facility] [address] [place], [address] Hemoglobin (Bld) [Mass/Vol] 13.6 g/dL Normal 12.0-15.0 [facility] [place] [facility] Comment on above: Performed By: #### L 100.0500, L500.2500 #### [facility] [place] [facility] [address] [place], [address] MCH (RBC) [Entitic mass] 31.0 pg Normal 27.0-32.0 [facility] [place] [facility] Comment on above: Performed By: #### L 100.0500, L500.2500 #### [facility] [place] [facility] [address] [place], [address] MCHC (RBC) [Mass/Vol] 34.1 g/dL Normal 32-36 [facility] Comment on above: Performed By: #### L 100.0500, L500.2500 #### [facility] [place] [facility] [address] [place], [address] MCV (RBC) [Entitic vol] 90.9 fL Normal 81-99 [facility] [place] [facility] Comment on above: Performed By: #### L 100.0500, L500.2500 #### [facility] [place] [facility] [address] [place], [address] Platelet mean volume (Bld) [Entitic vol] 9.8 fL Normal 6.2-12.0 [facility] [place] [facility] Comment on above: Performed By: #### L 100.0500, L500.2500 #### [facility] [place] [facility] [address] [place], [address] Platelets (Bld) [#/Vol] 182 10*3/uL Normal 150-450 [facility] [place] [facility] Comment on above: Performed By: #### L 100.0500, L500.2500 #### [facility] [place] [facility] [address] [place], [address] RBC (Bld) [#/Vol] 4.39 10*6/uL Normal 4.2-5.4 [facility] Comment on above: Performed By: #### L 100.0500, L500.2500 #### [facility] [place] [facility] [address] [place], [address] RDW SD 43.7 fl Normal 35.1-43.9 [facility] [place] [facility] Comment on above: Performed By: #### L 100.0500, L500.2500 #### [facility] [place] [facility] [address] [place], [address] WBC (Bld) [#/Vol] 12.5 10*3/uL High 4.4-11.0 [facility] Comment on above: Performed By: #### L 100.0500, L500.2500 #### [facility] [place] [facility] [address] [place], [address] Carbon dioxide, total [Moles /volume] in Central venous bloodOrdered By: Yossi Burnette on 12-23-2024 CO2 [Moles/Vol] 19.3 mmol/L Low 21.0-32.0 [facility] [place] [facility] Chloride assayOrdered By: Pauly Burnette on 12-23-2024 Chloride [Moles/Vol] 103 mmol/L 98-108 [facility] Discharge Instructionon 12-12 Discharge Instruction [facility] Medical Records Department [address] [place] [address] Instructions for Home/Discharge Instructions 12/23/24 1701 MR#: [id number] Acct: [id number] Name: RAYMON BAH Rep #: [id number] : 1950 74 From: Lynda SELLERS PCP: Dr. Foreign Ellington DO Status:DIS ELIDA 01/20/25 1153 Lynda SELLERS CC: Dr. Foreign Ellington DO; Dr. Yossi Riley MD Signed Normal [facility] Discharge Instruction [facility] Medical Records Department [address] [place] [address] Instructions for Home/Discharge Instructions 12/23/24 1630 MR#: [id number] Acct: [id number] Name: RAYMON BAH Rep #: [id number] : 1950 74 From: Yossi Burnette DO PCP: Dr. Foreign Ellington DO Status:ADM ELIDA Discharge Instructions DC O2, CPAP, BIPAP needs Home O2 Discharge instructions: No Follow Up Care Test Results: Test results from this visit will be discussed in further detail at your follow-up appointment, if applicable. Discharge Plan Admission Admit Date/Time: 12/22/24 12:20 Primary Reason for Your Visit: Right knee replacement Attending Provider: Yossi Burnette Primary Care Provider: Foreign Ellington Consulting Providers: Yossi Riley Additional Instructions / Restrictions: Follow preprinted instructions from Dr. Burnette's office. Recheck INR lab work needs checked 12/24 Discharge Orders/Prescriptions Prescriptions: New acetaminophen 500 mg Tablet 1,000 mg PO Q8 30 Days Qty: 180 0RF oxycodone 5 mg Tablet 5 - 10 mg PO Q4H PRN PRN (Reason: Pain Score 4-10) 7 Days Qty: 42 0RF Continued warfarin 2 mg tablet 6 mg PO DAILY Patient Comments: TAKE 3 TABS DAILY OR DIRECTED PER COUMADIN CLINIC Rx Instructions: STOP 4 DAYS PRIOR TO OR calcium citrate 500 mg Tablet, Effervescent 500 mg PO DAILY furosemide 20 mg tablet 20 mg PO DAILY escitalopram oxalate 10 mg tablet 10 mg PO DAILY Patient Comments: TAKE 1 TABLET BY MOUTH EVERY DAY rosuvastatin 10 mg tablet 10 mg PO DAILY cholecalciferol (vitamin D3) 50 mcg (2,000 unit) tablet 50 mcg PO DAILY Patient Comments: TAKE 1 TABLET BY MOUTH EVERY DAY fluticasone furoate [Arnuity Ellipta] 100 mcg/actuation blister with device 1 inh inhalation DAILY levothyroxine 75 mcg tablet 75 mcg PO DAILY diltiazem HCl [Matzim LA] 300 mg tablet extended release 24 hr 300 mg PO DAILY Rybelsus 7 mg tablet 7 mg PO DAILY Patient Comments: LAST DOSE PRIOR TO OR IS 12/19/24 docusate sodium 100 mg capsule 100 mg PO DAILY escitalopram oxalate 5 mg tablet 5 mg PO DAILY cyanocobalamin (vitamin B-12) [Vitamin B-12] 1,000 mcg tablet extended release 2,000 mcg PO DAILY Referrals / Follow Up: Foreign Ellington DO [Primary Care Provider] - Yossi Burnette DO [Med Staff - Active Staff] - Disposition Disposition (needs filled in before D/C Order can be placed): Home, Self Care 12/23/24 1631 Yossi Burnette DO CC: Dr. Foreign Ellington DO; Dr. Yossi Riley MD Signed Normal [facility] Erythrocyte distribution wid th ratioOrdered By: Yossi Burnette on 12-23-2024 Erythrocyte distribution width (RBC) [Ratio] 13.1 % 11.6-14.6 [facility] Erythrocyte distribution wid th standard deviationOrdered By: Yossi Burnette on 12-23-2024 Erythrocyte distribution width (RBC) [Ratio] 43.7 fl 35.1-43.9 [facility] [place] [facility] Glomerular filtration rate ( GFR) estimation/1.73 sq m using serum, plasma, or whole bOrdered By: Yossi Burnette on 12-23-2024 GFR/1.73 sq M.predicted among non-blacks MDRD (S/P/Bld) [Vol rate/Area] 87 mL/min/{1.73_m2} >60 [facility] Comment on above: mL/min/1.73m2 CKD-EP I Creatinine Equation (2020) Glucose measurement at bedsi deOrdered By: Yossi Burnette on 12-23-2024 Glucose [Mass/Vol] 268 mg/dL High 74-106 [facility] Comment on above: MANAGEMENT OF PATIEN T CARE PER NURSING PROTOCOL Hematocrit Auto (Bld) [Volum e fraction]Ordered By: Yossi Burnette on 12-23-2024 Hematocrit (Bld) [Volume fraction] 39.9 % 37-47 [facility] Hemoglobin measurementOrdere d By: Yossi Burnette on 12-23-2024 Hemoglobin (Bld) [Mass/Vol] 13.6 g/dL 12.0-15.0 [facility] MCV (mean corpuscular volume ) determinationOrdered By: Yossi Burnette on 12-23-2024 MCV (RBC) [Entitic vol] 90.9 fL 81-99 [facility] Mean corpuscular hemoglobin (MCH) determinationOrdered By: Yossi Burnette on 12-23-2024 MCH (RBC) [Entitic mass] 31.0 pg 27.0-32.0 [facility] Mean corpuscular hemoglobin concentration (MCHC) determinationOrdered By: Yossi Burnette on 12-23-2024 MCHC (RBC) [Mass/Vol] 34.1 g/dL 32-36 [facility] Mean platelet volume determi nationOrdered By: Yossi Burnette on 12-23-2024 Platelet mean volume (Bld) [Entitic vol] 9.8 fL 6.2-12.0 [facility] Platelet countOrdered By: Pauly Burnette on 12-23-2024 Platelets (Bld) [#/Vol] 182 10*3/uL 150-450 [facility] Potassium measurement (mass/ volume)Ordered By: Yossi Burnette on 12-23-2024 Potassium (Unsp spec) [Mass/Vol] 4.2 mmol/L 3.3-5.1 [facility] RBC Auto (Bld) [#/Vol]Ordere d By: Yossi Burnette on 12-23-2024 RBC (Bld) [#/Vol] 4.39 10*6/uL 4.2-5.4 [facility] Serum creatinine measurement (mass/volume)Ordered By: Yossi Burnette on 12-23-2024 Creatinine [Mass/Vol] 0.72 mg/dL 0.70-1.20 [facility] Serum glucose measurement (m ass/volume)Ordered By: Yossi Burnette on 12-23-2024 Glucose [Mass/Vol] 255 mg/dL High 70-99 [facility] Serum or plasma calcium shawnee urement (mass/volume)Ordered By: Yossi Burnette on 12-23-2024 Calcium [Mass/Vol] 9.0 mg/dL 7.6-11.0 [facility] Serum or plasma urea nitroge n measurement (mass/volume)Ordered By: Yossi Burnette on 12-23-2024 Urea nitrogen [Mass/Vol] 12 mg/dL 4-19 [facility] Sodium levelOrdered By: Juancho Burnette on 12-23-2024 Sodium [Moles/Vol] 136 mmol/L 133-145 [facility] White blood cell (WBC) count Ordered By: Yossi Burnette on 12-23-2024 WBC (Bld) [#/Vol] 12.5 10*3/uL High 4.4-11.0 [facility] Bedside Glucoseon 12-22-2024 FINGERSTICK GLU 358 mg/dL High 74-106 [facility] Comment on above: Result Comment: MARISA NOVAK OF PATIENT CARE PER NURSING PROTOCOL Performed By: #### L 501.080 #### [facility] [address] [place], [address] FINGERSTICK GLU 147 mg/dL High 74-106 [facility] Comment on above: Result Comment: MARISA GERONIMOENT OF PATIENT CARE PER NURSING PROTOCOL Performed By: #### L 500.2500, M100.651, L501.1800, L100.0100 #### [facility] [address] [place], [address] Consultation - Hospitaliston 12-22-2024 Consultation - Hospitalist [facility] Medical Records Department [address] [place] [address] Consultation - Hospitalist 12/22/242023 MR#: [id number] Acct: [id number] Name: RAYMON BAH Rep #: [id number] : 1950 74 From: Brooke Reed MD PCP: Dr. Foreign Ellington, DO Status:ADM ELIDA Location: [place] [address] Assessment Plan Assessment/Plan (1) Diabetes: PLAN: Plan #Type 2 diabetes mellitus -Glucose checks and sliding scale insulin #DEUCE - Patient reports she did not bring her CPAP and will be fine if she goes night without it # History of A-fib - Resume Coumadin at discretion of primary - Patient on diltiazem, holding parameters added given blood pressure little soft, patient asymptomatic #Depression/anxiety -Continue home medications #Hx ?asthma vs COPD -Continue home inhalers -Incentive spirometer -Follows w/ Dr. Dimas on outpt basis #Hypothyroidism -Continue Synthroid #Hx kidney stones -Noted # Right knee osteoarthritis -Status post robotic arm assisted right total knee arthroplasty 12/22/[address] Burnette -Management/pain management per primary #DVT ppx: Timing and agent at discretion of primary Brooke Reed MD Time spent in the patient's overall evaluation, decision-making process, review of diagnostic data, adjustment of management, discussion with other providers, nursing and ancillary staff involved in patient's care documentation, 21 Minutes HPI Consult Data Date of Consult: 12/22/24 HPI Narrative Reason for Consultation: Postop medical management HPI Narrative: RAYMON BAH, is [id number] female history of DEUCE, A-fib, kidney stones, diabetes, hypertension, depression, COPD, hypothyroidism presented [facility] 12/22/2024 for a robotic arm assisted right total knee arthroplasty with Dr. Burnette. Hospitalist consulted for postoperative medical management. Patient evaluated at bedside. Patient reports feeling little bit of pulling in her right knee like she did prior to surgery and is worried that it will start hurting, outside of her knee she has no other new acute complaints, urinated well before she came up to the floor REPLACED BY [facility] Medical History (Updated 12/22/24 @ 20:[address] Brooke Reed MD) Arthritis Cardiology follow-up encounter CPAP (continuous positive airway pressure) dependence Diabetes High cholesterol History of atrial fibrillation History of echocardiogram History of IBS History of steroid therapy Hypertension Kidney stones Left ureteral stone PONV (postoperative nausea and vomiting) Post-menopausal Sleep apnea Thyroid disease Wears glasses Wears hearing aid Home Medications ???Medication ???Instructions ???Recorded ???Last Taken ???Type calcium citrate 500 mg (2,376 mg) 500 mg PO DAILY 12/21/21 12/19/24 History effervescent tablet cholecalciferol (vitamin D3) 50 50 mcg PO DAILY 12/21/21 12/19/24 History mcg (2,000 unit) tablet escitalopram oxalate 10 mg tablet 10 mg PO DAILY 12/21/21 12/21/24 History furosemide 20 mg tablet 20 mg PO DAILY 12/21/21 12/21/24 H istory rosuvastatin 10 mg tablet 10 mg PO DAILY 12/21/21 12/21/24 H istory warfarin 2 mg tablet 6 mg PO DAILY 12/21/21 12/17/24 Hi story cyanocobalamin (vitamin B-12) 2,000 mcg PO DAILY 11/24/24 History 1,000 mcg tablet,extended release (Vitamin B-12 ER) diltiazem HCl 300 mg 300 mg PO DAILY 11/24/24 12/22/24 06:00 History tablet,extended release 24 hr (Matzim [place]) docusate sodium 100 mg capsule 100 mg PO DAILY 11/24/24 Unknown H istory escitalopram oxalate 5 mg tablet 5 mg PO DAILY 11/24/24 Unknown His tory fluticasone furoate 100 1 inh inhalation DAILY 11/24/24 06:00 History mcg/actuation blister powder for inhalation (Arnuity Ellipta) levothyroxine 75 mcg tablet 75 mcg PO DAILY 11/24/24 12/22/24 06:00 History semaglutide 7 mg tablet (Rybelsus) 7 mg PO DAILY 11/24/24 12/18/24 History Allergy/AdvReac Type Severity Reaction Status Date / Time cortisone Allergy Severe Other Verified 12/22/24 09:36 Nitrate Analogues Allergy Severe Other Verified 12/22/24 09:36 erythromycin base Allergy Upset Verified 12/22/24 09:36 Stomach Penicillins (PCN) Allergy Swelling Verified 12/22/24 09:36 Surgical History History of back surgery History of cardiac catheterization History of heart surgery History of hip replacement History of partial hysterectomy Hx of cystoscopy Hx of parathyroidectomy Hx of total hip arthroplasty Social History Smoking Status: Never smoker ROS ROS Narrative General: Denies fever/chills HENT: Denies headache, denies stuffy nose, denies sore throat EYES: Denies changes in vision Resp: (more content not included)... Normal [facility] normalized rat io (INR) measurement by fingerstickOrdered By: Yossi Burnette on 12-22-2024 INR Coag (BldC) [Relative time] 1.2 [facility] Comment on above: Critical Value > 4.0 MR/POSTOP.ANEon 12-22-2024 MR[facility]OP[facility] Medical Records Department [address] [place] [address] Anesthesia Postop Eval I 12/22/24 1233 MR#: [id number] Acct: [id number] Name: RAYMON BAH Rep #: [id number] : 1950 74 From: Zacarias Skelton CRNA PCP: Dr. Foreign Ellington, DO Status:REG SDC Y Race: C Location: [place] [address] Anesthesia: Postop Eval I Current Vital Signs Temperature: 97.8 F Pulse Rate: 85 Blood Pressure: 101/60 Respiratory Rate: 16 Pulse Ox: 92 Assessment Airway patent: Yes Spontaneous unlabored respirations: Yes nausea: No Vomiting: No Anesthesia Complication: No Fluid Hydration Crystalloid volume administer (ml): 1,100 Total IV fluid infused: 1,100 Progress Note Anesthesia document: Postop Eval 1 completed: Yes 12/22/24 1234 Date Zacarias Rubinbitt [employer]VENT PLANT TREATER Cosigner Signature: Date CC: Signed Normal [facility] MR/[id number] 12-22-2024 MR/POSTOPAN2 [facility] Medical Records Department [address] [facility] [place] [address] Anesthesia Postop Eval II 12/22/24 1422 MR#: [id number] Acct: [id number] Name: RAYMON BAH Rep #: [id number] : 1950 74 From: Pat Alarcon CRNA PCP: Dr. Foreign Ellington, DO Status:REG SDC Y Race: C Location: [place] [address] Anesthesia Postop Eval I Sum Postop Eval Completion status Anesthesia document: Postop Eval 1 completed: Yes Anesthesia Postop Eval I Summary Anesthesia Postop Eval I Summary: Anesthesia Postop Eval I: Assessment Summary Airway patent Yes 12/22/24 12:33 SOLVENT PLANT [email or web address].[email or web address] Spontaneous unlabored Yes 12/22/24 12:33 SOLVENT PLANT TREATER.TNES respirations Mental status nausea No 12/22/24 12:33 SOLVENT PLANT TREATER.TNES Vomiting No 12/22/24 12:33 SOLVENT PLANT TREATER.TNES Anesthesia Postop Eval I: Fluid Summary Crystalloid volume administer 1,100 12/22/24 12:33 SOLVENT PLANT TREATER.TNES (ml) Colloids volume administered ( ml) Blood Product volume administered (ml) Total IV fluid infused 1,100 12/22/24 12:33 SOLVENT PLANT TREATER.TNES Anesthesia Postop Eval I: Summary Notes Anesthesia Complication No 12/22/24 12:33 SOLVENT PLANT TREATER.TNES Anesthesia Complication Comment: Post-operative progress note Anesthesia: Postop Eval II Evaluation Mental status: Awake and Calm Pain Level: 2 nausea: No Vomiting: No Complications Anesthesia Complication: No 12/22/24 1422 Date Pat Alarcon RENETTA Cosigner Signature: Date CC: Signed Normal [facility] Operative Reporton 5 Operative Report [facility] Medical Records Department [address] [place] [address] Operative Report 12/22/24 1306 MR#: [id number] Acct: [id number] Name: RAYMON BAH Rep #: [id number] : 1950 74 From: Yossi Burnette DO PCP: Dr. 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: Yes [place] Folder: Lynda Camarillo Tasks completed by printer's assistant: Opening closing, Implanting device, Hemostasis: Electrocautery and Retracting Type of Anesthesia: Spinal/Supplemental RN Documented Start/Stop Times: Operation Date: 12/22/24 10:30 Case Time Into Pre-Op 12/22/24 08:09 Anesthesia Start 12/22/24 10:30 Into Room 12/22/24 10:30 Procedure Start 12/22/24 10:50 Procedure End 12/22/24 12:06 Anesthesia End 12/22/24 12:14 Out of Room 12/22/24 12:14 Into Recovery 12/22/24 12:15 Procedure Start Time: 10:50 Procedure Stop Time: 12:06 Select all DRAINS/GRAFTS/IMPLANTS that apply: Implanted device Implanted device details: [place] triathlon cemented CR femur size #2, size 3 tibial baseplate with 9 mm CS polyethylene insert Estimated Blood Loss: 50 cc Specimen collected: No Description of surgery: Patient was identified in the preoperative holding area by name, medical record number, and date of . Informed set was confirmed with the patient. The operative knee was marked with a surgical marker. At time of her procedure, patient brought to the operative suite and positioned supine a standard operating table. Anesthesia then administered a spinal anesthetic. He was then repositioned in the supine position with all bony prominences well-padded. We then placed a well- padded pneumatic tourniquet on the right upper thigh. The right upper extremity was brought across patient's chest throughout the procedure. We then prepped and draped the right lower extremity in a normal, sterile orthopedic fashion. We performed a timeout with all parties in attendance in agreement with the side, site, operation be performed. No concerns were voiced and would like to proceed with surgery. 2 g Ancef was administered prior to the incision by anesthesia staff as well as 1 g IV TXA. First exsanguinated the right lower extremity with a Esmarch bandage. Tourniquet was inflated to 250 mmHg for approximately 45 minutes. Esmarch was removed. I planned a standard midline approach to the right knee approximately 15 cm in length. Skin was sharply incised with a 10 blade scalpel developing full-thickness layers down to the retinaculum. Layers were developed identifying the VMO. I then planned a standard medial parapatellar arthrotomy performed in flexion. The anterior horn of the medial meniscus was released. Hoffa's fat pad was then released. I then everted the patella in extension and brought the knee into 90 degrees of flexion. The anterior horn of the lateral meniscus was then released. The ACL was split in its mid substance with a 10 blade. We then brought the knee back into extension. Patella was left paskenta due to moderate degenerative changes. I then placed pins in the metaphyseal distal femur medial to lateral for the Denzel arrays. In similar fashion, I made a 2 cm incision approximately a handsbreadth distal to the tibial tubercle along the medial aspect of the tibia, drilling 2 bicortical pins for the tibial array. The knee was brought into flexion. The patella was subluxed laterally but not everted. Medial lateral retractors were placed. We then utilized the [employer] software to confirm our planned surgical procedure and oriented with the patient's osseous anatomy. All checks with the [employer] system were confirmed. Patient had a significant fixed varus deformity after performing stress examination utilizing the [employer] software. We elected to place the tibial baseplate in 1 degree of varus to allow for appropriate balancing. Sawblade was then brought in. I first started with the tibial cut, ensuring protection of the MCL and patellar tendon. A tibial wafer was then excised. I then proceeded to make the posterior femoral, anterior, anterior chamfer cuts with the same blade. Ligaments were protected with [employer] retractors. Sawblade was then exchanged to perform the distal femoral and posterior chamfer cuts. The robot was then removed from the surgical field. Remaining loose bone and meniscus was excised carefully. Posterior osteophytes were removed from the distal femur with a curved osteotome and rongeur. Trial components were then placed. Balance was excellent in both extension and 90 degrees flexion. No mid flexion instability was apparent. Tra (more content not included)... Normal [facility] Protime w/INR Fingerstickon 12-22-2024 INR Coag (PPP) [Relative time] 1.2 {INR} Normal [facility] Comment on above: Result Comment: Crit ical Value > 4.0 Performed By: #### L 500.2500, M100.651, L501.1800, L100.0100 #### [facility] [address] [facility] [place], [address] Protime Coagsen 14.4 SEC Normal 11.7-14.9 [facility] Comment on above: Performed By: #### L 500.2500, M100.651, L501.1800, L100.0100 #### [facility] [address] [facility] [place], [address] Whole blood prothrombin time Ordered By: Yossi Burnette on 12-22-2024 PT Coag (Bld) [Time] 14.4 s 11.7-14.9 [facility] LABORATORYOrdered By: Emiliana Glass on 11-27-2024 Appearance (U) Clear (11/27/24 9:06 AM) Normal Clear AO Auto Urine SS Bilirubin Ql (U) Negative (11/27/24 9:06 AM) Normal Negative AO Auto Urine SS Color (U) Yellow (11/27/24 9:06 AM) Normal AO Auto Urine SS Glucose Test strip (U) [Mass/Vol] Negative Normal Negative AO Auto Urine SS Hemoglobin Auto test strip (U) [Mass/Vol] Negative (11/27/24 9:06 AM) Normal Negative AO Auto Urine SS Ketones Ql (U) Negative Normal Negative AO Auto Urine SS UA Leuk Est Trace (11/27/24 9:06 AM) Normal Negative AO Auto Urine SS UA Nitrite Negative (11/27/24 9:06 AM) Normal Negative AO Auto Urine SS UA pH 6.0 (11/27/24 9:06 AM) Normal 5.0 - 8.0 AO Auto Urine SS UA Protein Negative Normal Negative AO Auto Urine SS UA Spec Grav 1.015 (11/27/24 9:06 AM) Normal 1.015-1.025 AO Auto Urine SS UA Specimen Type Void (11/27/24 9:06 AM) Normal AO Auto Urine SS UA Urobilinogen 0.2 E.U./dL Normal 0.2-1.0 AO Auto Urine SS UAon 11-27-2024 Color (U) Yellow Normal [facility] Comment on above: Performed By: #### U A ####[place] [address] Glucose (U) [Mass/Vol] Negative Normal Negative [facility] Comment on above: Performed By: #### U A ####[place] [address] Ketones Ql (U) Negative Normal Negative [facility] Comment on above: Performed By: #### U A ####[place] [address] UA Appear Clear Normal Clear [facility] Comment on above: Performed By: #### U A ####[place] [address] UA Blood Negative Normal Negative [facility] Comment on above: Performed By: #### U A ####[place] [address] UA Leuk Est Trace Normal Negative [facility] Comment on above: Performed By: #### U A ####[place] [address] UA Nitrite Negative Normal Negative [facility] Comment on above: Performed By: #### U A ####[place] [address] [place] [address] UA pH 6.0 Normal 5.0 - 8.[address] [facility] Comment on above: Performed By: #### U A ####[place] [address] [place] [address] UA Protein Negative Normal Negative [facility] Comment on above: Performed By: #### U A ####[address] [place] [address] UA Spec Grav 1.015 Normal 1.015-1.[address] [facility] Comment on above: Performed By: #### U A ####[place] [address] [place] [address] UA Specimen Type Void Normal [facility] Comment on above: Performed By: #### U A ####[place] [address] [place] [address] UA Urobilinogen 0.2 E.U./dL Normal 0.2-1.[address] [facility] Comment on above: Performed By: #### U A ####[place] [address] [place] [address] Urobilinogen (U) [Mass/Vol] Negative Normal Negative [facility] Comment on above: Performed By: #### U A ####[place] [address] [place] [address] XR SPINE LUMBAR AP/LATon XR SPINE LUMBAR AP/LAT ORIGINAL EXAMINATION: XR lumbar spine TECHNIQUE: Three views of the lumbar spine COMPARISON: CT abdomen pelvis MRI lumbar spine 08/06/2023 HISTORY: ORDERING SYSTEM PROVIDED HISTORY: Reason for Exam: back pain FINDINGS: 5 [id number] lumbar vertebral bodies are present. The bones are diffusely demineralized. Moderate remote compression deformity of the T12 vertebral body without significant change. L4 and L5 bilateral laminectomies. Slight retrolisthesis of L2 on L3, L3 on L4 and L4 on L5. An 8 mm anterolisthesis of L5 on S1 with associated bilateral L5 pars interarticularis defects is present. Severe disc height loss at L2-L3 and less severe L3-L4 and L5-S1 present. Severe facet arthrosis at L5-S1. Degenerative changes of the bilateral sacroiliac joints. Incompletely imaged bilateral total hip replacements. IMPRESSION: 1. Moderate remote compression deformity of the T12 vertebral body. 2. L4 and L5 bilateral laminectomies. 3. 8 mm anterolisthesis of L5 on S1 with associated bilateral L5 pars interarticularis defects. 4. Severe disc height loss at L2-L3 and less severe L3-L4 and L5-S1. Interpreted by: Maximiliano Jackson MD Preliminary Report By: Maximiliano Jackson MD Electronically signed By Maximiliano Jackson MD Dictated Date: 11/27/2024 8:57:30 AM Prelim Date: 11/27/2024 9:02:41 AM Sign Date: 11/27/2024 9:02:41 AM Ordering Provider: HERNAN LOREDO [facility] Electrocardiogram reportOrde red By: Riri Tavarez on 11-26-2024 EKG study [facility] Cardiovascular Services [address] [place] [id number] 12 Lead EKG 11/25/24 0955 MR#: [id number] Acct: [id number] Name: RAYMON BAH Rep #:[id number] : 1950 74 From: Riri ortega MD Attending Dr: Dr. Yossi Burnette DO Status: PRE [facility] Ordering Dr: Yossi Burnette DO Date: 11/25/24 Location: [facility] Sex: F C Admitted: Test Reason : PRE OP Blood Pressure : */* mmHG Vent. Rate : 93 BPM Atrial Rate : 100 BPM P-R Int : * ms QRS Dur : 86 ms QT Int : 384 ms P-R-T Axes : * 101 101 degrees QTcB Int : [address] & T wave abnormality, consider anterior ischemia or digitalis effect Prolonged QT Abnormal ECG Confirmed by Riri Tavarez ([id number]), website/blog editor CHRISTOPHER SKINNER ([id number]) on 11/26/2024 11:22:50 AM Referred By: Yossi Burnette Confirmed By: Riri Tavarez 11/26/24 1122 Date _ Riri Tavarez MD CC: Dr. Foreign Ellington, DO; Dr. Yossi Burnette DO ~ Signed [facility] Work Phone: MR/PATChing 11-26-2024 MR/ALTAGRACIA [facility] Medical Records Department [address] [place] [address] PAT - Anesthesia 11/26/242107 MR#: [id number] Acct: [id number] Name: RAYMON BAH Rep #: [id number] : 1950 74 From: Eleazar Kumar MD PCP: Dr. 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 When Was Last Pacemaker Check QUESTION #4 FULL TEXT: You/Your Family Experience fever (hyperthermia) with Anesthesia Last Oral Intake Last Oral intake: Last Oral Intake NPO since Meds taken in AM with sips of water? Meds patient instructed to take am of surgery PONV PONV - hard metals hand engraver: PONV - hard metals hand engraver Female Yes 11/24/24 10:32 HX of Motion Sickness Yes 11/24/24 10:32 HX of N/V After Surgery Yes 11/24/24 10:32 Non-Smoker Yes 11/24/24 10:32 Duration of Surgery greater Yes 11/24/24 10:32 than 60 minutes Number of Risk Factors 5 11/24/24 10:32 PONV Score Severe Risk 11/24/24 10:32 Height Weight Height Weight: Anesthesia: Height Weight Height 5 ft 3 in 08/18/22 06:43 Respiratory Assessment Respiratory Assessment - hard metals hand engraver: Respiratory Tract Infection Hx - hard metals hand engraver Hx Respiratory Tract Infection No 11/24/24 10:32 STOP Sleep Apnea STOP Sleep Apnea - hard metals hand engraver: STOP Sleep Apnea - hard metals hand engraver Hx Hypertension Yes: CONTROLLED ON MED 11/24/24 10:32 Hx Sleep Apnea Yes 11/24/24 10:32 CPAP Yes 11/24/24 10:32 BIPAP No 11/24/24 10:32 Do you snore loudly (louder than talking or can be heard Do you often feel tired/ fatigued/ sleepy during daytime? Has anyone observed you stop breathing during sleep? STOP Results Positive 11/24/24 10:32 QUESTION #5 FULL TEXT : Do you snore loudly (louder than talking or can be heard through closed doors)? 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 Specify any problems Hx of Preganancy in last 3 No 11/24/24 10:32 Months Nurse Filling Out Transfusion VCHRISTIN 11/24/24 10:32 Questions: Date: 11/24/24 11/24/24 10:32 Time: 10:38 11/24/24 10:32 Patient unable to answer at this time (ie. confused, unrespo /Reproduction History /Reproductive History - hard metals hand engraver: /Reproductive Hx- hard metals hand engraver Hx Now No 11/24/24 10:32 Gestational Age (in weeks): EDC: Hx Hx Para Hx Section SAB No 11/24/24 10:32 REPLACED BY [facility] Medical History (Updated 11/24/24 @ 11:57 by Kim Henry) History of echocardiogram Post-menopausal History of steroid therapy Diabetes Kidney stones Left ureteral stone PONV (postoperative nausea and vomiting) Wears hearing aid Wears glasses Thyroid disease Arthritis High cholesterol History of IBS CPAP (continuous positive airway pressure) dependence Sleep apnea Hypertension Cardiology follow-up encounter History of atrial fibrillation Home Medications ???Medication ???Instructions ???Recorded ???Last Taken ???Type calcium citrate 500 mg (2,376 mg) 500 mg PO DAILY 12/21/21 Unknown History effervescent tablet cholecalciferol (vitamin D3) 50 50 mcg PO DAILY 12/21/21 Unknown H istory mcg (2,000 unit) tablet escitalopram oxalate 10 mg tablet 10 mg PO DAILY 12/21/21 12/29/21 06:32 History furosemide 20 mg tablet 20 mg PO DAILY 12/21/21 Unknown Hi story rosuvast (more content not included)... Normal [facility] [place] [facility] MRSA/SAID NASAL SCREENon MRSA+SAID SCRN Reason for Exam: PRE -OP MRSA MRSA Negative S. AUREUS S. aureus Negative Normal [facility] [place] [facility] Comment on above: Performed By: #### L 500.2500, M100.651, L501.1800, L100.0100 #### [facility] [place] [facility] [address] [facility] [place], [address] 12 Lead EKGon 11-25-2024 12 Lead EKG [facility] Cardiovascular Services [address] [place] [address] 12 Lead EKG 11/25/24 0955 MR#: [id number] Acct: [id number] Name: RAYMON BAH Rep #: [id number] : 1950 74 From: Riri Tavarez MD Attending Dr: Dr. Yossi Burnette DO Status: PRE [facility] [place]: Yossi Burnette DO Date: 11/25/24 [place] [facility] Sex: F C Admitted: Test Reason : PRE OP Blood Pressure : */* mmHG Vent. Rate : 93 BPM Atrial Rate : 100 BPM P-R Int : * ms QRS Dur : 86 ms QT Int : 384 ms P-R-T Axes : * 101 101 degrees QTcB Int : [address] T wave abnormality, consider anterior ischemia or digitalis effect Prolonged QT Abnormal ECG Confirmed by Riri Tavarez ([id number]), website/blog editor CHRISTOPHER SKINNER ([id number]) on 11/26/2024 11:22:50 AM Referred By: Yossi Burnette Confirmed By: Riri Tavarez 11/26/24 112 Date Riri Tavarez MD CC: Dr. Foreign Ellington, DO; Dr. Yossi Burnette, DO Signed Normal [facility] [place] [facility] Absolute lymphocyte countOrd ered By: Yossi Burnette on 11-25-2024 Lymphocytes Auto (Unsp spec) [#/Vol] 1.58 10*3/uL 0.83-4.51 [facility] [place] [facility] Absolute neutrophil countOrd ered By: Yossi Burnette on 11-25-2024 Neutrophils (Bld) [#/Vol] 4.8 10*3/uL 2.0-7.7 [facility] [place] [facility] Albumin, Serumon 11-25-2024 Albumin [Mass/Vol] 4.2 g/dL Normal 3.4-4.8 [facility] Comment on above: Performed By: #### L 500.2500, M100.651, L501.1800, L100.0100 #### [facility] [place] [facility] [address] [facility]. [place], [place], [address] Automated lymphocyte count a s percentage of total leukocytesOrdered By: Yossi Burnette on 11-25-2024 Lymphocytes/100 WBC Auto (Unsp spec) 22.4 % 19-41 [facility] [place] [facility] Basic Metabolic Profile (BMP )on 11-25-2024 BUN/CRE 14.4 RATIO Normal 10-20 [facility] [place] [facility] Comment on above: Performed By: #### L 500.2500, M100.651, L501.1800, L100.0100 #### [facility] [place] [facility] [address] [facility] [place], [address] Calcium [Mass/Vol] 9.4 mg/dL Normal 7.6-11.0 [facility] Comment on above: Performed By: #### L 500.2500, M100.651, L501.1800, L100.0100 #### [facility] [place] [facility] [address] [place], [address] Chloride [Moles/Vol] 103 mmol/L Normal 98-108 [facility] Comment on above: Performed By: #### L 500.2500, M100.651, L501.1800, L100.0100 #### [facility] [place] [facility] [address] [place], [address] CO2 [Moles/Vol] 23.9 mmol/L Normal 21.0-32.0 [facility] [place] [facility] Comment on above: Performed By: #### L 500.2500, M100.651, L501.1800, L100.0100 #### [facility] [place] [facility] [address] [place], [address] Creatinine [Mass/Vol] 0.87 mg/dL Normal 0.70-1.20 [facility] Comment on above: Performed By: #### L 500.2500, M100.651, L501.1800, L100.0100 #### [facility] [place] [facility] [address] [place], [address] GAP 13 Normal 5-15 [facility] [place] [facility] Comment on above: Performed By: #### L 500.2500, M100.651, L501.1800, L100.0100 #### [facility] [place] [facility] [address] [place], [address] GFR/1.73 sq M.predicted among non-blacks MDRD (S/P/Bld) [Vol rate/Area] 69 mL/min/{1.73_m2} Normal >60 [facility] [place] [facility] Comment on above: Result Comment: mL/m in/1.73m2 CKD-EPI Creatinine Equation (2020) Performed By: #### L 500.2500, M100.651, L501.1800, L100.0100 #### [facility] [place] [facility] [address] [place], [address] Glucose [Mass/Vol] 193 mg/dL High 70-99 [facility] Comment on above: Performed By: #### L 500.2500, M100.651, L501.1800, L100.0100 #### [facility] [place] [facility] [address] [place], [address] Potassium [Moles/Vol] 4.0 mmol/L Normal 3.3-5.1 [facility] Comment on above: Performed By: #### L 500.2500, M100.651, L501.1800, L100.0100 #### [facility] [place] [facility] [address] [place], [address] Sodium [Moles/Vol] 140 mmol/L Normal 133-145 [facility] Comment on above: Performed By: #### L 500.2500, M100.651, L501.1800, L100.0100 #### [facility] [place] [facility] [address] [place], [address] Urea nitrogen [Mass/Vol] 13 mg/dL Normal 4-19 [facility] [place] [facility] Comment on above: Performed By: #### L 500.2500, M100.651, L501.1800, L100.0100 #### [facility] [place] [facility] [address] [place], [address] Basophil percentageOrdered B y: Yossi Burnette on 11-25-2024 Basophils/100 WBC (Bld) 0.6 % 0-1 [facility] [place] [facility] CBC W/Diff, Automatedon 11-11 Absolute Lymph 1.58 X10 3/uL Normal 0.83-4.51 [facility] [place] [facility] Comment on above: Performed By: #### L 500.2500, M100.651, L501.1800, L100.0100 #### [facility] [place] [facility] [address] [place], [address] Absolute Neut 4.8 X10 3/uL Normal 2.0-7.7 [facility] [place] [facility] Comment on above: Performed By: #### L 500.2500, M100.651, L501.1800, L100.0100 #### [facility] [place] [facility] [address] [place], [address] Basophils/100 WBC (Bld) 0.6 % Normal 0-1 [facility] [place] [facility] Comment on above: Performed By: #### L 500.2500, M100.651, L501.1800, L100.0100 #### [facility] [place] [facility] [address] [place], [address] Eosinophils/100 WBC (Bld) 1.1 % Normal 0-5 [facility] [place] [facility] Comment on above: Performed By: #### L 500.2500, M100.651, L501.1800, L100.0100 #### [facility] [place] [facility] [address] [place], [address] Erythrocyte distribution width (RBC) [Ratio] 13.9 % Normal 11.6-14.6 [facility] [place] [facility] Comment on above: Performed By: #### L 500.2500, M100.651, L501.1800, L100.0100 #### [facility] [place] [facility] [address] [place], [address] Hematocrit (Bld) [Volume fraction] 42.9 % Normal 37-47 [facility] [place] [facility] Comment on above: Performed By: #### L 500.2500, M100.651, L501.1800, L100.0100 #### [facility] [place] [facility] [address] [place], [address] Hemoglobin (Bld) [Mass/Vol] 14.1 g/dL Normal 12.0-15.0 [facility] [place] [facility] Comment on above: Performed By: #### L 500.2500, M100.651, L501.1800, L100.0100 #### [facility] [place] [facility] [address] [place], [address] IG% 0.300 Normal 0.0-0.9 [facility] [place] [facility] Comment on above: Result Comment: IG% - Immature Granulocytes (promyelocytes, myelocytes and metamyelocytes) > 1% indicates that a LEFT SHIFT is Present. Performed By: #### L 500.2500, M100.651, L501.1800, L100.0100 #### [facility] [place] [facility] [address] [place], [address] Lymphocytes/100 WBC (Bld) 22.4 % Normal 19-41 [facility] [place] [facility] Comment on above: Performed By: #### L 500.2500, M100.651, L501.1800, L100.0100 #### [facility] [place] [facility] [address] [place], [address] MCH (RBC) [Entitic mass] 30.4 pg Normal 27.0-32.0 [facility] [place] [facility] Comment on above: Performed By: #### L 500.2500, M100.651, L501.1800, L100.0100 #### [facility] [place] [facility] [address] [place], [address] MCHC (RBC) [Mass/Vol] 32.9 g/dL Normal 32-36 [facility] Comment on above: Performed By: #### L 500.2500, M100.651, L501.1800, L100.0100 #### [facility] [place] [facility] [address] [place], [address] MCV (RBC) [Entitic vol] 92.5 fL Normal 81-99 [facility] [place] [facility] Comment on above: Performed By: #### L 500.2500, M100.651, L501.1800, L100.0100 #### [facility] [place] [facility] [address] [place], [address] Monocytes/100 WBC (Bld) 7.8 % Normal 0-10 [facility] [place] [facility] Comment on above: Performed By: #### L 500.2500, M100.651, L501.1800, L100.0100 #### [facility] [place] [facility] [address] [place], [address] Neutrophils/100 WBC (Bld) 67.8 % Normal 47-70 [facility] [place] [facility] Comment on above: Performed By: #### L 500.2500, M100.651, L501.1800, L100.0100 #### [facility] [place] [facility] [address] [place], [address] Nucleated RBC (Bld) [#/Vol] 0 10*3/uL Normal 0-5 [facility] [place] [facility] Comment on above: Performed By: #### L 500.2500, M100.651, L501.1800, L100.0100 #### [facility] [place] [facility] [address] [place], [address] Platelet mean volume (Bld) [Entitic vol] 10.0 fL Normal 6.2-12.0 [facility] [place] [facility] Comment on above: Performed By: #### L 500.2500, M100.651, L501.1800, L100.0100 #### [facility] [place] [facility] [address] [place], [address] Platelets (Bld) [#/Vol] 240 10*3/uL Normal 150-450 [facility] [place] [facility] Comment on above: Performed By: #### L 500.2500, M100.651, L501.1800, L100.0100 #### [facility] [place] [facility] [address] [place], [address] RBC (Bld) [#/Vol] 4.64 10*6/uL Normal 4.2-5.4 [facility] Comment on above: Performed By: #### L 500.2500, M100.651, L501.1800, L100.0100 #### [facility] [place] [facility] [address] [place], [address] RDW SD 46.9 fl High 35.1-43.9 [facility] [place] [facility] Comment on above: Performed By: #### L 500.2500, M100.651, L501.1800, L100.0100 #### [facility] [place] [facility] [address] [place], [address] WBC (Bld) [#/Vol] 7.1 10*3/uL Normal 4.4-11.0 [facility] Comment on above: Performed By: #### L 500.2500, M100.651, L501.1800, L100.0100 #### [facility] [place] [facility] [address] [place], [address] Eosinophil percentageOrdered By: Yossi Burnette on 11-25-2024 Eosinophils/100 WBC (Bld) 1.1 % 0-5 [facility] [place] [facility] Hemoglobin A1con 11-25-2024 HbA1c (Bld) [Mass fraction] 6.8 % High <=5.6 [facility] [place] [facility] Comment on above: Result Comment: Norm al < 5.7 % Prediabetic 5.7 - 6.4 % Diabetic >or= 6.5 % Please note range changes. Performed By: #### L 500.2500, M100.651, L501.1800, L100.0100 #### [facility] [place] [facility] [address] [place], [address] Hemoglobin A1c percentageOrd ered By: Eleazar Kumar on 11-25-2024 HbA1c (Bld) [Mass fraction] 6.8 % High <5.7 [facility] [place] [facility] Comment on above: Normal < 5.7 % Predi abetic 5.7 - 6.4 % Diabetic >or= 6.5 % Please note range changes. Immature granulocytes/100 WB C Auto (Bld)Ordered By: Yossi Burnette on 11-25-2024 Immature granulocytes/100 WBC (Bld) 0.300 % 0.0-0.9 [facility] [place] [facility] Comment on above: IG% - Immature Granu locytes (promyelocytes, myelocytes and metamyelocytes) > 1% indicates that a LEFT SHIFT is Present. MRSA screenOrdered By: Igor Burentte on 11-25-2024 MRSA DNA VICKI+probe Ql (Unsp spec) [facility] [place] [facility] Magnesiumon 11-25-2024 Magnesium [Mass/Vol] 2.1 mg/dL Normal 1.5-2.2 [facility] Comment on above: Performed By: #### L 500.2500, M100.651, L501.1800, L100.0100 #### [facility] [place] [facility] [address] [place], [address] Magnesium measurement (mass/ volume)Ordered By: Eleazar Kumar on 11-25-2024 Magnesium (Unsp spec) [Mass/Vol] 2.1 mg/dL 1.5-2.2 [facility] [place] [facility] Monocyte percentageOrdered B y: Yossi Burnette on 11-25-2024 Monocytes/100 WBC (Bld) 7.8 % 0-10 [facility] [place] [facility] Neutrophil percentageOrdered By: Yossi Burnette on 11-25-2024 Neutrophils/100 WBC (Bld) 67.8 % 47-70 [facility] [place] [facility] Nucleated red blood cell per centageOrdered By: Yossi Burnette on 11-25-2024 Nucleated RBC/100 WBC (Bld) [Ratio] 0 % 0-5 [facility] [place] [facility] Serum or plasma albumin shawnee urement (mass/volume)Ordered By: Yossi Burnette on 11-25-2024 Albumin [Mass/Vol] 4.2 g/dL 3.4-4.8 [facility] TSH DL <= 0.005 mIU/L QnOrde red By: Eleazar Kumar on 11-25-2024 TSH Qn 2.380 uIU/mL 0.300-4.200 [facility] [place] [facility] Thyroid Stim Hormone (TSH)on 11-25-2024 TSH 2.380 uIU/mL Normal 0.300-4.200 [facility] [place] [facility] Comment on above: Performed By: #### L 500.2500, M100.651, L501.1800, L100.0100 #### [facility] [place] [facility] [address] [place], [place], [address] .GFRon 11-05-2024 Estimated Glomerular Filtration Rate 69 ml/min/1.73sqm Normal [facility] Comment on above: Result Comment: Stages of Chronic Kidney Disease (CKD) Stage Description eGFR(ml/min/1.73 sq.m.) CKD 1 Normal kidney function or >=90 normal kindney function with possible kidney damage (ex. Proteinuria) CKD 2 Kidney damage with mild loss 60-89 of kidney function CKD 3a Mild to moderate loss of kidney 45-59 function CKD 3b Moderate to severe loss of 30-44 of kindey function CKD 4 Severe loss of kidney function 15-29 CKD 5 Kidney failure <15 Note: (go live 2024) the eGFR calculation was updated to the 2020 CKD-EPI creatinine equation without a race factor to calculate the eGFR results. Performed By: #### C MP, FT4, GFR, A1C, TSH, FT3 ####[place] [address] [place], [place] [address] A1Con 11-05-2024 Glucose [Mass/Vol] 146 mg/dL Normal [facility] Comment on above: Order Comment: luis m espinoza wanted it again. - KK 11/05/2024 0810AM Result Comment: Patrick mated Average Glucose calculated by equation ((28.7xA1C)-46.7) Estimated average glucose (eAG) is a calculated value from Hemoglobin A1C and is personal financial representative of the average blood glucose level in the last 2-3 month period. Normal range: less than 114 mg/dL Performed By: #### C MP, FT4, GFR, A1C, TSH, FT3 ####[place] [address] [place], [place] [address] HbA1c (Bld) [Mass fraction] 6.7 % High 4.3-6.[address] [facility] Comment on above: Order Comment: luis m espinoza wanted it again. - KK 11/05/2024 0810AM Performed By: #### C MP, FT4, GFR, A1C, TSH, FT3 ####[facility] [place], [place] [address] CMPon 11-05-2024 Albumin Level 4.0 G/dL Normal 3.4-4.[address] [facility] Comment on above: Performed By: #### C MP, FT4, GFR, A1C, TSH, FT3 ####[place] [address] [place], [place] [address] Albumin/Globulin [Mass ratio] 1.0 {ratio} Low 1.1-2.[address] [facility] Comment on above: Performed By: #### C MP, FT4, GFR, A1C, TSH, FT3 ####[address] [address] ALP [Catalytic activity/Vol] 76 U/L Normal 40-[address] [facility] Comment on above: Performed By: #### C MP, FT4, GFR, A1C, TSH, FT3 ####[address] [address] ALT [Catalytic activity/Vol] 31 U/L Normal 14-[address] [facility] Comment on above: Performed By: #### C MP, FT4, GFR, A1C, TSH, FT3 ####[address] [address] AST [Catalytic activity/Vol] 27 U/L Normal 10-[address] [facility] Comment on above: Performed By: #### C MP, FT4, GFR, A1C, TSH, FT3 ####[address] [address] Bili Total 0.6 mg/dL Normal 0.2-1.[address] [facility] Comment on above: Result Comment: Use of this assay is not recommended for patients undergoing treatment with eltrombopag due to the potential for falsely elevated results. Performed By: #### C MP, FT4, GFR, A1C, TSH, FT3 ####[address] [address] BUN/Creatinine Ratio 22 ratio Normal 7-27 [facility] Comment on above: Performed By: #### C MP, FT4, GFR, A1C, TSH, FT3 ####[address] [address] Calcium [Mass/Vol] 9.4 mg/dL Normal 8.4-10.2 [facility] Comment on above: Performed By: #### C MP, FT4, GFR, A1C, TSH, FT3 ####[place] [address] [place], [place] [address] Chloride [Moles/Vol] 105 mmol/L Normal 98-107 [facility] Comment on above: Performed By: #### C MP, FT4, GFR, A1C, TSH, FT3 ####[place] [place], [place] [address] CO2 [Moles/Vol] 26 mmol/L Normal 23-[address] [facility] Comment on above: Performed By: #### C MP, FT4, GFR, A1C, TSH, FT3 ####[place] [address] [place] [address] Creatinine [Mass/Vol] 0.87 mg/dL Normal 0.51-0.95 [facility] Comment on above: Performed By: #### C MP, FT4, GFR, A1C, TSH, FT3 ####[place] [address] Electrolyte Balance 11.0 mEq/L Normal 4.0-15.0 [facility] Comment on above: Performed By: #### C MP, FT4, GFR, A1C, TSH, FT3 ####[place] [address] Globulin 4.0 G/dL Normal 2.7-4.[address] [facility] Comment on above: Performed By: #### C MP, FT4, GFR, A1C, TSH, FT3 ####[address] [address] Glucose [Mass/Vol] 149 mg/dL High 83-110 [facility] Comment on above: Performed By: #### C MP, FT4, GFR, A1C, TSH, FT3 ####[place] [address] Potassium [Moles/Vol] 3.9 mmol/L Normal 3.5-5.1 [facility] Comment on above: Performed By: #### C MP, FT4, GFR, A1C, TSH, FT3 ####[facility] [place], [place] [address] Sodium [Moles/Vol] 142 mmol/L Normal 136-145 [facility] Comment on above: Performed By: #### C MP, FT4, GFR, A1C, TSH, FT3 ####[place] [address] [place], [place] [address] Total Protein 8.0 G/dL Normal 6.4-8.[address] [facility] Comment on above: Performed By: #### C MP, FT4, GFR, A1C, TSH, FT3 ####[place] [address] [place], [place] [address] Urea nitrogen [Mass/Vol] 19 mg/dL High 7-[address] [facility] Comment on above: Performed By: #### C MP, FT4, GFR, A1C, TSH, FT3 ####[place] [address] [place], [place] [address] FT3on 11-05-2024 Free T3 [Mass/Vol] 2.45 pg/mL Normal 2.30-4.00 [facility] Comment on above: Performed By: #### C MP, FT4, GFR, A1C, TSH, FT3 ####[place] [address] [place], [place] [address] FT4on 11-05-2024 Free T4 [Mass/Vol] 1.28 ng/dL Normal 0.76-1.46 [facility] Comment on above: Performed By: #### C MP, FT4, GFR, A1C, TSH, FT3 ####[place] [address] [place], [place] [address] LABORATORYOrdered By: SYSTEM SYSTEM on 11-05-2024 Albumin BCP dye [Mass/Vol] 4.0 G/dL Normal 3.4 - 4.8 G/dL AO ADM SS Albumin/Globulin [Mass ratio] 1.0 {ratio} Low 1.1 - 2.5 ratio AO ADM SS ALP [Catalytic activity/Vol] 76 U/L Normal 40 - 135 U/L AO ADM SS ALT With P-5'-P [Catalytic activity/Vol] 31 U/L Normal 14 - 59 U/L AO ADM SS AST With P-5'-P [Catalytic activity/Vol] 27 U/L Normal 10 - 40 U/L AO ADM SS Bilirubin [Mass/Vol] 0.6 mg/dL Normal 0.2 - 1 .0 mg/dL AO ADM SS Comment on above: Interpretive Data: U se of this assay is not recommended for patients undergoing treatment with eltrombopag due to the potential for falsely elevated results. Calcium [Mass/Vol] 9.4 mg/dL Normal 8.4 - 10. 2 mg/dL AO ADM SS Chloride [Moles/Vol] 105 mmol/L Normal 98 - 10 7 mmol/L AO ADM SS CO2 [Moles/Vol] 26 mmol/L Normal 23 - 31 mmol/L AO ADM SS Creatinine [Mass/Vol] 0.87 mg/dL Normal 0.51 - 0.95 mg/dL AO ADM SS Electrolyte Balance 11.0 mEq/L Normal 4.0 - 15 .0 mEq/L AO ADM SS Estimated Glomerular Filtration Rate 69 ml/min/1.73sqm Invalid Interpretation Code AO Chemistry S Comment on above: Interpretive Data: Stages of Chronic Kidney Disease (CKD) Stage Description eGFR(ml/min/1.73 sq.m.) CKD 1 Normal kidney function or >=90 normal kindney function with possible kidney damage (ex. Proteinuria) CKD 2 Kidney damage with mild loss 60-89 of kidney function CKD 3a Mild to moderate loss of kidney 45-59 function CKD 3b Moderate to severe loss of 30-44 of kindey function CKD 4 Severe loss of kidney function 15-29 CKD 5 Kidney failure <15 Note: (go live 2024) the eGFR calculation was updated to the 2020 CKD-EPI creatinine equation without a race factor to calculate the eGFR results. Free T3 [Mass/Vol] 2.45 pg/mL Normal 2.30 - 4. 00 pg/mL AO ADM SS Free T4 [Mass/Vol] 1.28 ng/dL Normal 0.76 - 1. 46 ng/dL AO ADM SS Globulin 4.0 G/dL Normal 2.7 - 4.4 G/dL AO ADM SS Glucose [Mass/Vol] 149 mg/dL High 83 - 110 mg/dL AO ADM SS Glucose [Mass/Vol] 146 mg/dL Invalid Interpretation Code AO Chemistry S Comment on above: Interpretive Data: E stimated average glucose (eAG) is a calculated value from Hemoglobin A1C and is personal financial representative of the average blood glucose level in the last 2-3 month period. Normal range: less than 114 mg/dL HbA1c (Bld) [Mass fraction] 6.7 % High 4.3 - 6.4 % AO ADM SS Potassium [Moles/Vol] 3.9 mmol/L Normal 3.5 - 5.1 mmol/L AO ADM SS Protein [Mass/Vol] 8.0 G/dL Normal 6.4 - 8.2 G/dL AO ADM SS Sodium [Moles/Vol] 142 mmol/L Normal 136 - 145 mmol/L AO ADM SS TSH Qn 2.24 m[IU]/L Normal 0.36 - 3.74 mcIU/mL AO ADM SS Urea nitrogen [Mass/Vol] 19 mg/dL High 7 - 18 mg/dL AO ADM SS Urea nitrogen/Creatinine [Mass ratio] 22 ratio Normal 7 - 27 ratio AO ADM SS TSHon 11-05-2024 TSH Qn 2.24 m[IU]/L Normal 0.36-3.[address] [facility] Comment on above: Performed By: #### C MP, FT4, GFR, A1C, TSH, FT3 ####[address] [address] .Auto Diffon 10-30-2024 Basophil, Absolute 0.1 10 3/mcL Normal 0.0-0.3 [facility] Comment on above: Performed By: #### G FR, BMP, CBC, ANEU, PBNP, A1C, ADIFF #### [address] [address] Basophils/100 WBC (Bld) 0.6 % Normal 0.0-2.[address] [facility] Comment on above: Performed By: #### G FR, BMP, CBC, ANEU, PBNP, A1C, ADIFF #### [address] [address] Eosinophil, Absolute 0.1 10 3/mcL Normal 0.0-0.7 [facility] Comment on above: Performed By: #### G FR, BMP, CBC, ANEU, PBNP, A1C, ADIFF #### [place] [address] [address] Eosinophils/100 WBC (Bld) 1.1 % Normal 0.0-6.[address] [facility] Comment on above: Performed By: #### G FR, BMP, CBC, ANEU, PBNP, A1C, ADIFF #### [address] [address] Lymphocyte, Absolute 2.0 10 3/mcL Normal 0.9-4.3 [facility] Comment on above: Performed By: #### G FR, BMP, CBC, ANEU, PBNP, A1C, ADIFF #### [address] [address] Lymphocytes/100 WBC (Bld) 23.4 % Normal 20.0-40.[address] [facility] Comment on above: Performed By: #### G FR, BMP, CBC, ANEU, PBNP, A1C, ADIFF #### [address] [address] Monocyte, Absolute 0.8 10 3/mcL Normal 0.1-1.4 [facility] Comment on above: Performed By: #### G FR, BMP, CBC, ANEU, PBNP, A1C, ADIFF #### [address] [address] Monocytes/100 WBC (Bld) 9.1 % Normal 2.0-13.[address] [facility] Comment on above: Performed By: #### G FR, BMP, CBC, ANEU, PBNP, A1C, ADIFF #### [address] [address] Neutrophils/100 WBC (Bld) 65.8 % Normal 50.0-75.[address] [facility] Comment on above: Performed By: #### G FR, BMP, CBC, ANEU, PBNP, A1C, ADIFF #### [address] [address] .GFRon 10-30-2024 Estimated Glomerular Filtration Rate 87 ml/min/1.73sqm Normal [facility] Comment on above: Result Comment: Stages of Chronic Kidney Disease (CKD) Stage Description eGFR(ml/min/1.73 sq.m.) CKD 1 Normal kidney function or >=90 normal kindney function with possible kidney damage (ex. Proteinuria) CKD 2 Kidney damage with mild loss 60-89 of kidney function CKD 3a Mild to moderate loss of kidney 45-59 function CKD 3b Moderate to severe loss of 30-44 of kindey function CKD 4 Severe loss of kidney function 15-29 CKD 5 Kidney failure <15 Note: (go live 2024) the eGFR calculation was updated to the 2020 CKD-EPI creatinine equation without a race factor to calculate the eGFR results. Performed By: #### G FR, BMP, CBC, ANEU, PBNP, A1C, ADIFF ####[facility] [place], [place] [address] .NEUABSon 10-30-2024 Neutrophil, Absolute 5.7 10 3/mcL Normal 2.3-8.1 [facility] Comment on above: Performed By: #### G FR, BMP, CBC, ANEU, PBNP, A1C, ADIFF ####[address] [place], [place] [address] A1Con 10-30-2024 Glucose [Mass/Vol] 148 mg/dL Normal [facility] Comment on above: Result Comment: Patrick mated Average Glucose calculated by equation ((28.7xA1C)-46.7) Estimated average glucose (eAG) is a calculated value from Hemoglobin A1C and is personal financial representative of the average blood glucose level in the last 2-3 month period. Normal range: less than 114 mg/dL Performed By: #### G FR, BMP, CBC, ANEU, PBNP, A1C, ADIFF ####[address] [place], [place] [address] HbA1c (Bld) [Mass fraction] 6.8 % High 4.3-6.[address] [facility] Comment on above: Performed By: #### G FR, BMP, CBC, ANEU, PBNP, A1C, ADIFF ####[facility] [place], [place] [address] BMPon 10-30-2024 BUN/Creatinine Ratio 19 ratio Normal 7-27 [facility] Comment on above: Performed By: #### G FR, BMP, CBC, ANEU, PBNP, A1C, ADIFF ####[address] [place], [place] [address] Calcium [Mass/Vol] 9.3 mg/dL Normal 8.4-10.2 [facility] Comment on above: Performed By: #### G FR, BMP, CBC, ANEU, PBNP, A1C, ADIFF ####[address] [place], [place] [address] Chloride [Moles/Vol] 106 mmol/L Normal 98-107 [facility] Comment on above: Performed By: #### G FR, BMP, CBC, ANEU, PBNP, A1C, ADIFF ####[address] [place] [id number] CO2 [Moles/Vol] 28 mmol/L Normal 23-[address] [facility] Comment on above: Performed By: #### G FR, BMP, CBC, ANEU, PBNP, A1C, ADIFF ####[address] [place], [place] [address] Creatinine [Mass/Vol] 0.72 mg/dL Normal 0.51-0.95 [facility] Comment on above: Performed By: #### G FR, BMP, CBC, ANEU, PBNP, A1C, ADIFF ####[address] [place], [place] [address] Electrolyte Balance 8.0 mEq/L Normal 4.0-15.0 [facility] Comment on above: Performed By: #### G FR, BMP, CBC, ANEU, PBNP, A1C, ADIFF ####[address] [place], [place] [address] Glucose [Mass/Vol] 98 mg/dL Normal 83-110 [facility] Comment on above: Performed By: #### G FR, BMP, CBC, ANEU, PBNP, A1C, ADIFF ####[address] [place], [place] [address] Potassium [Moles/Vol] 3.8 mmol/L Normal 3.5-5.1 [facility] Comment on above: Performed By: #### G FR, BMP, CBC, ANEU, PBNP, A1C, ADIFF ####[address] [address] Sodium [Moles/Vol] 142 mmol/L Normal 136-145 [facility] Comment on above: Performed By: #### G FR, BMP, CBC, ANEU, PBNP, A1C, ADIFF ####[address] [address] Urea nitrogen [Mass/Vol] 14 mg/dL Normal 7-[address] [facility] Comment on above: Performed By: #### G FR, BMP, CBC, ANEU, PBNP, A1C, ADIFF ####[address] [address] CBCon 10-30-2024 Erythrocyte distribution width (RBC) [Ratio] 14.8 % Normal 11.5-15.[address] [facility] Comment on above: Performed By: #### G FR, BMP, CBC, ANEU, PBNP, A1C, ADIFF #### [address] [address] Hematocrit (Bld) [Volume fraction] 42.8 % Normal 34.0-46.[address] [facility] Comment on above: Performed By: #### G FR, BMP, CBC, ANEU, PBNP, A1C, ADIFF #### [address] [address] Hgb 14.6 G/dL Normal 12.0-16.[address] [facility] Comment on above: Performed By: #### G FR, BMP, CBC, ANEU, PBNP, A1C, ADIFF #### [address] [address] MCH (RBC) [Entitic mass] 31.0 pg Normal 27.0-33.[address] [facility] Comment on above: Performed By: #### G FR, BMP, CBC, ANEU, PBNP, A1C, ADIFF #### [address] [address] MCHC 34.0 G/dL Normal 32.0-36.[address] [facility] Comment on above: Performed By: #### G FR, BMP, CBC, ANEU, PBNP, A1C, ADIFF #### [address] [address] MCV (RBC) [Entitic vol] 91.1 fL Normal 80.0-99.[address] [facility] Comment on above: Performed By: #### G FR, BMP, CBC, ANEU, PBNP, A1C, ADIFF #### [address] [address] Platelet 217 10 3/mcL Normal 150-[address] [facility] Comment on above: Performed By: #### G FR, BMP, CBC, ANEU, PBNP, A1C, ADIFF #### [address] [address] Platelet mean volume (Bld) [Entitic vol] 8.3 fL Normal 6.6-10.[address] [facility] Comment on above: Performed By: #### G FR, BMP, CBC, ANEU, PBNP, A1C, ADIFF #### [address] [address] RBC 4.70 10 6/mcL Normal 4.10-5.[address] [facility] Comment on above: Performed By: #### G FR, BMP, CBC, ANEU, PBNP, A1C, ADIFF #### [address] [address] WBC 8.7 10 3/mcL Normal 4.5-10.[address] [facility] Comment on above: Performed By: #### G FR, BMP, CBC, ANEU, PBNP, A1C, ADIFF #### [address] [address] LABORATORYOrdered By: SYSTEM SYSTEM on 10-30-2024 Basophils (Bld) [#/Vol] 0.1 103/mcL Normal 0.0 - 0.3 10^3/mcL AO Workflow SS Basophils/100 WBC (Bld) 0.6 % Normal 0.0 - 2.5 % AO Workflow SS Calcium [Mass/Vol] 9.3 mg/dL Normal 8.4 - 10. 2 mg/dL AO ADM SS Chloride [Moles/Vol] 106 mmol/L Normal 98 - 10 7 mmol/L AO ADM SS CO2 [Moles/Vol] 28 mmol/L Normal 23 - 31 mmol/L AO ADM SS Creatinine [Mass/Vol] 0.72 mg/dL Normal 0.51 - 0.95 mg/dL AO ADM SS Electrolyte Balance 8.0 mEq/L Normal 4.0 - 15 .0 mEq/L AO ADM SS Eosinophil, Absolute 0.1 103/mcL Normal 0.0 - 0 .7 10^3/mcL AO Workflow SS Eosinophils/100 WBC (Bld) 1.1 % Normal 0.0 - 6.0 % AO Workflow SS Erythrocyte distribution width (RBC) [Ratio] 14.8 % Normal 11.5 - 15.5 % AO Workflow SS Estimated Glomerular Filtration Rate 87 ml/min/1.73sqm Invalid Interpretation Code AO Chemistry S Comment on above: Interpretive Data: Stages of Chronic Kidney Disease (CKD) Stage Description eGFR(ml/min/1.73 sq.m.) CKD 1 Normal kidney function or >=90 normal kindney function with possible kidney damage (ex. Proteinuria) CKD 2 Kidney damage with mild loss 60-89 of kidney function CKD 3a Mild to moderate loss of kidney 45-59 function CKD 3b Moderate to severe loss of 30-44 of kindey function CKD 4 Severe loss of kidney function 15-29 CKD 5 Kidney failure <15 Note: (go live 2024) the eGFR calculation was updated to the 2020 CKD-EPI creatinine equation without a race factor to calculate the eGFR results. Glucose [Mass/Vol] 148 mg/dL Invalid Interpretation Code AO Chemistry S Comment on above: Interpretive Data: E stimated average glucose (eAG) is a calculated value from Hemoglobin A1C and is personal financial representative of the average blood glucose level in the last 2-3 month period. Normal range: less than 114 mg/dL Glucose [Mass/Vol] 98 mg/dL Normal 83 - 110 mg/dL AO ADM SS HbA1c (Bld) [Mass fraction] 6.8 % High 4.3 - 6.4 % AO ADM SS Hematocrit (Bld) [Volume fraction] 42.8 % Normal 34.0 - 46.0 % AO Workflow SS Hemoglobin (Bld) [Mass/Vol] 14.6 G/dL Normal 12.0 - 16.0 G/dL AO Workflow SS Lymphocytes (Bld) [#/Vol] 2.0 103/mcL Normal 0.9 - 4.3 10^3/mcL AO Workflow SS Lymphocytes/100 WBC (Bld) 23.4 % Normal 20.0 - 40.0 % AO Workflow SS MCH (RBC) [Entitic mass] 31.0 pg Normal 27.0 - 33.0 pg AO Workflow SS MCHC 34.0 G/dL Normal 32.0 - 36.0 G/dL AO Workflow SS MCV (RBC) [Entitic vol] 91.1 fL Normal 80.0 - 99.0 fL AO Workflow SS Monocytes (Bld) [#/Vol] 0.8 103/mcL Normal 0.1 - 1.4 10^3/mcL AO Workflow SS Monocytes/100 WBC (Bld) 9.1 % Normal 2.0 - 13.0 % AO Workflow SS Natriuretic peptide.B prohormone N-Terminal [Mass/Vol] 464 pg/mL High 0 - 450 pg/mL AO ADM SS Comment on above: Interpretive Data: N T-proBNP results of less than 300 pg/mL effectively rules out acute congestive heart failure with 99% negative predictive value. Neutrophils (Bld) [#/Vol] 5.7 103/mcL Normal 2.3 - 8.1 10^3/mcL AO Workflow SS Neutrophils/100 WBC (Bld) 65.8 % Normal 50.0 - 75.0 % AO Workflow SS Platelet mean volume (Bld) [Entitic vol] 8.3 fL Normal 6.6 - 10.5 fL AO Workflow SS Platelets (Bld) [#/Vol] 217 103/mcL Normal 150 - 450 10^3/mcL AO Workflow SS Potassium [Moles/Vol] 3.8 mmol/L Normal 3.5 - 5.1 mmol/L AO ADM SS RBC (Bld) [#/Vol] 4.70 106/mcL Normal 4.10 - 5.3 0 10^6/mcL AO Workflow SS Sodium [Moles/Vol] 142 mmol/L Normal 136 - 145 mmol/L AO ADM SS Urea nitrogen [Mass/Vol] 14 mg/dL Normal 7 - 18 mg/dL AO ADM SS Urea nitrogen/Creatinine [Mass ratio] 19 ratio Normal 7 - 27 ratio AO ADM SS WBC (Bld) [#/Vol] 8.7 103/mcL Normal 4.5 - 10.8 10^3/mcL AO Workflow SS PBNPon 10-30-2024 Natriuretic peptide B (Bld) [Mass/Vol] 464 pg/mL High 0-[address] [facility] Comment on above: Result Comment: NT-p roBNP results of less than 300 pg/mL effectively rules out acute congestive heart failure with 99% negative predictive value. Performed By: #### G FR, BMP, CBC, ANEU, PBNP, A1C, ADIFF ####[address] [place], [place] [address] CT KNEE W/O CONTRAST RIGHTon 10-24-2024 CT KNEE W/O CONTRAST RIGHT ORIGINAL EXAMINATION: CT OF THE RIGHT KNEE WITHOUT CONTRAST 10/24/2024 1:12 pm TECHNIQUE: CT of the right knee was performed without the administration of intravenous contrast. Multiplanar reformatted images are provided for review. Automated exposure control, iterative reconstruction, and/or weight based adjustment of the mA/kV was utilized to reduce the radiation dose to as low as reasonably achievable. COMPARISON: None. HISTORY ORDERING SYSTEM PROVIDED HISTORY: Reason for Exam: UNILATERAL PRIMARY OSTEOARTHRITIS RIGHT KNEE FINDINGS: Overall moderate knee osteoarthritis, with severe joint space narrowing medially. There subchondral sclerosis in the medial knee compartment. Tricompartmental marginal osteophytes. Chondrocalcinosis. Small effusion. No soft tissue mass. Bilateral INO IMPRESSION: Knee osteoarthritis with small effusion. Images were acquired for preoperative planning Interpreted by: Frandy Cullen Preliminary Report By: Frandy Cullen Electronically signed By Frandy Cullen Dictated Date: 10/24/2024 1:29:41 PM Prelim Date: 10/24/2024 1:31:58 PM Sign Date: 10/24/2024 1:31:58 PM Ordering Provider: YOSSI Fry [facility] General Messageon 10-21-2024 General Message HILLRAYMON V :1950 Registration Date:10/20/2024 [facility] Christine Harley M.D., Raudel Colindres M.D., Anshu Damon M.D., Riri Chris M.D., Rodríguez Lester Salcido M.D., Jackson Souza M.D., Nick Mcknight M.D., Chung Rivers M.D., Jayant Stone & Ghazal Meyer [id number] [place], [address] [place], [address] Procedure Date: 12/22/2024 Surgeon: Dr. Burnette Cardiac Risk : Moderate cardiac risk Comments: _ Patient is cleared for surgery: RIGHT KNEE REPLACEMENT Patient may hold: _ ASPIRIN for _ days and resume after the procedure _ PLAVIX (Clopidogrel) for _ days and resume after the procedure x COUMADIN (Warfarin) (Jantoven) for 4_ days and resume after the procedure _ BRILINTA (Ticagrelor) for _ days and resume after the procedure _ EFFIENT (Prasugrel) for _ days and resume after the procedure _ PRADAXA (Dabigatran Etexilate) for _ days and resume after the procedure _ XARELTO (Rivaroxaban) for _ days and resume after the procedure _ ELIQUIS (Apixaban) for _ days and resume after the procedure _ AVAYSA (EDOXABAN) for _ days and resume after the procedure _ OTHER _ for _ days and resume after the procedure Electronically Co-Signed by: ANSHU DAMON MD on 10/21/2024 11:54 EDT Normal [facility]1950 [facility] Date:10/17/2024 [facility] Christine Harley M.D., Raudel Colindres M.D., Anshu Damon M.D., Riri Chris M.D., Rodríguez Sy M.D.,Trevon Salcido M.D., Jackson Souza M.D., Nick Mcknight M.D., Chung Rivers M.D., Charles Luu M.D., Jayant Stone, Marlee Barnett., N.P., & Ghazal Lopez N. P [address], [address] [place], [address] [place], [address] Procedure Date: DECEMBER 22, 2024 Surgeon: YOSSI BURNETTE DO Cardiac Risk : Moderate cardiac risk Comments: _ Patient is cleared for surgery: ROBOTIC ASSISTED RIGHT TOTAL KNEE ARTHROPLASTY Patient may hold: _ ASPIRIN for _ days and resume after the procedure _ PLAVIX (Clopidogrel) for _ days and resume after the procedure X COUMADIN (Warfarin) (Jantoven) for 4_ days and resume after the procedure _ BRILINTA (Ticagrelor) for _ days and resume after the procedure _ EFFIENT (Prasugrel) for _ days and resume after the procedure _ PRADAXA (Dabigatran Etexilate) for _ days and resume after the procedure _ XARELTO (Rivaroxaban) for _ days and resume after the procedure _ ELIQUIS (Apixaban) for _ days and resume after the procedure _ AVAYSA (EDOXABAN) for _ days and resume after the procedure _ OTHER _ for _ days and resume after the procedure Electronically Co-Signed by: ANSHU DAMON MD on 10/17/2024 07:51 EDT Sent to for review: ANSHU DAMON MD [facility] Ambulatory Clinical Summaryo n 07-21-2024 Ambulatory Clinical Summary RAYMON BAH V :1950 [facility]:[id number] Registration Date:07/21/2024 Ambulatory Visit Instructions Your Diagnosis WHO group 1 pulmonary arterial hypertension Atrial septal defect H/O closure of congenital atrial septal defect by percutaneous transcatheter technique Atrial fibrillation, permanent Asthma HLD (hyperlipidemia) Chronic venous insufficiency Normal coronary arteries Obstructive sleep apnea treated with continuous positive airway pressure (CPAP) Your Care Team Attending Physician - AMY SHANKAR, ANSHU Procedures Performed Right Heart Cardiac Catheterization, left ventricle pressures (07/17/2023) Coronary Angiograms. (12/28/2020) Left and Right Heart Catheterization, left ventriculogram. (12/28/2020) LEFT UPPER BACK SOFT TISUUE MASS EXCISION (04/27/2015) History of ASD-surgery done to repair hole. Parathyroids removed (2) LEFT total hip replacement Back operation RIGHT total hip replacement Hysterectomy Discharge Vitals Blood Pressure 123/73 Height 62.99 in (160 cm) Weight 198.45 lb (90 kg) BMI 35.16 Systolic Blood Pressure: 123 mmHg High (07/21/24 10:40:00) Diastolic Blood Pressure: 73 mmHg (07/21/24 10:40:00) SpO2: 99 % (07/21/24 10:40:00) Oxygen Therapy: Room air (07/21/24 10:40:00) Mean Arterial Pressure: 90 mmHg (07/21/24 10:40:00) Height/Length Measured: 160 cm (07/21/24 10:40:00) Weight Measured: 90 kg (07/21/24 10:40:00) Body Mass Index Measured: 35.16 kg/m2 (07/21/24 10:40:00) Weight Measured - lbs2: 198 lb (07/21/24 10:40:00) Height/Length Measured - in2: 63 in (07/21/24 10:40:00) Body Mass Index Measured English2: 35.07 kg/m2 (07/21/24 10:40:00) BSA: 2 m2 (07/21/24 10:40:00) Ht/Wt Measurement Refused by Patient?2: No (07/21/24 10:40:00) What to do next Scheduled Follow-Up Appointments Appointment Type Reason for visit Day With Date Time Where [facility] Home INR Monitori I48. Pharmacist 2 July 31, 2024 04:30 pm EDT Coumadin Clinic ZIP: Established Patient PAH, ASD closure, A fib, HLD, asthma, DEUCE with CPAP, hypothyroids Sunday Anshu Damon MD December 08, 2024 11:00 am EDT [facility] ZIP: Medications What How Much When Instructions Changed levothyroxine (Synthroid 100 mcg (0.1 mg) oral tablet) 1 Tabs Oral DAILY Unchanged ascorbic acid (Vitamin C 500 mg oral tablet) 1 Tabs Oral DAILY Unchanged calcium citrate (calcium citrate 950 mg (200 mg elemental calcium) oral tablet) 1 Tabs Oral DAILY Unchanged cholecalciferol (Vitamin D3 2000 intl units (50 mcg) oral capsule) 1 Capsules Oral DAILY Unchanged cyanocobalamin (Vitamin B12 1000 mcg oral tablet) 1 Tabs Oral DAILY Unchanged dilTIAZem (dilTIAZem 300 mg/ 24 hours oral tablet, extended release) 1 Tabs Oral DAILY Unchanged docusate (docusate sodium 100 mg oral tablet) 1 Tabs Oral DAILY Unchanged escitalopram (escitalopram 20 mg oral tablet) 1 Tabs Oral DAILY Unchanged fluticasone-vilanterol (Breo Ellipta 200 mcg-25 mcg/ inh inhalation powder) 1 Puffs Inhalation DAILY Unchanged furosemide (furosemide 20 mg oral tablet) 1 Tabs Oral DAILY Unchanged lactobacillus acidophilus = Floranex, Florajen, Lactinex Granules (Acidophilus Probiotic Blend oral capsule) 1 Capsules Oral DAILY Unchanged rosuvastatin (rosuvastatin 10 mg oral capsule) 1 Capsules Oral DAILY Unchanged semaglutide (Rybelsus 7 mg oral tablet) 1 Tabs Oral DAILY take at least 30 minutes before first food, beverage, or other oral meds Unchanged warfarin = Jantoven, Coumadin (warfarin 2 mg oral tablet) See instructions Take by mouth daily as directed by [facility] (currently takes 3 tablets PO daily). 270 tabs for 90 day supply, 1RF. For questions call [facility] at Allergies erythromycin nausea penicillins swelling Problems Ongoing - Any problem that you are currently receiving treatment for. Atrial fibrillation, permanent Atrial septal defect Chronic venous insufficiency H/O closure of congenital atrial septal defect by percutaneous transcatheter technique HLD (hyperlipidemia) Hypothyroid Moderate to severe pulmonary hypertension Normal coronary arteries Obstructive sleep apnea treated with continuous positive airway pressure (CPAP) S/P device closure of atrial septal defect S/P hysterectomy S/P total hip arthroplasty Soft tissue mass WHO group 1 pulmonary arterial hypertension Common Emergency Awareness Tips IS IT A STROKE? Act FAST and Check for these signs: FACE Does the face look uneven? ARM Does one arm drift down? SPEECH Does their speech sound strange? TIME Call at any sign of stroke Heart Attack Signs Chest discomfort: Most heart attacks involve discomfort in the center of the chest and lasts more than a few minutes, or goes away and comes back. It can feel like unc (more content not included)... Normal [facility] Comprehensive Intake - [facility] - [place] 07-21-2024 Comprehensive Intake - [facility] - Text Comprehensive Intake - [facility] Entered On: 07/21/2024 10:41 EDT Performed On: 07/21/2024 10:40 EDT by DINORA CROWLEY CNP Infection Screening - Ambulatory Recent travel from an affected area within past 14 days of symptom onset AND/OR fever AND/OR signs and symptoms of acute respiratory illness : No Exposure and/or close contact with a person under investigation or laboratory-confirmed COVID-19 individual within 14 days of symptom onset AND/OR fever AND/OR signs and symptoms of acute respiratory illness : No DINORA CROWLEY CNP - 07/21/2024 10:40 EDT Summary [facility] Advance Directive : Yes Require BP : Yes Ht/Wt Measurement Refused by Patient? : No Systolic Blood Pressure : 123 mmHg (HI) Diastolic Blood Pressure : 73 mmHg Mean Arterial Pressure : 90 mmHg Weight Measured : 90 kg(Converted to: 198 lb 7 oz, 198.416 lb) Height/Length Measured : 160 cm(Converted to: 5 ft 3 in, 62.99 in) Weight Measured - lbs : 198 lb(Converted to: 198 lb 0 oz, 90 kg) Height/Length Measured - in : 63 in(Converted to: 5 ft 3 in, 160 cm) Body Mass Index Measured : 35.16 kg/m2 Body Mass Index Measured Bangladeshi : 35.07 kg/m2 SpO2 : 99 % BSA Bangladeshi : 2 m2 Oxygen Therapy : Room air DINORA CROWLEY CNP - 07/21/2024 10:40 EDT Depression Screening Feeling Down, Depressed, Hopeless : Not at all Little Interest - Pleasure in Activities : Not at all Initial Depression Screen Score : 0 Depression Screening Score 0 : No DINORA CROWLEY CNP - 07/21/2024 10:40 EDT Falls Risk Assessment Is the patient ambulatory (mobile) : Yes Have you had 2 or more falls in the past year : No Have you had a fall within the past year that has caused an injury : No DINORA CROWLEY CNP - 07/21/2024 10:40 EDT Normal [facility] Pulm Hypertension Provider P tj Hoyos 07-21-2024 Pulm Hypertension Provider Progress Note RAYMON BAH V :1950 Registration Date:07/21/2024 Assessment/Plan This Visit Diagnosis 1. WHO group 1 pulmonary arterial hypertension I27.21 2. Atrial septal defect Q21.10 3. H/O closure of congenital atrial septal defect by percutaneous transcatheter technique Z87.74 4. Atrial fibrillation, permanent I48.21 Continue chronic anticaogulation with warfarin. Continue diltiazem 300 mg daily. 5. Asthma J45.909 6. HLD (hyperlipidemia) E78.5 Continue rosuvastatin 10 mg daily. 7. Chronic venous insufficiency I87.2 8. Normal coronary arteries Z03.89 9. Obstructive sleep apnea treated with continuous positive airway pressure (CPAP) G47.33 Stable, f/u with us in 4 months. Chief Complaint PAH, ASD closure, A fib, HLD, asthma, DEUCE with CPAP, hypothyroids History of Present Illness and Review of Systems She has been feeling more tired recently, her TSH was apparently elevated in her thyroid replacement dose was recently increased. She denies chest pain or shortness of breath or palpitations or edema. Place of Service [facility] Place of Service: [facility] (07/21/24 10:40:00) Review of Systems General: Negative unless otherwise mentioned in HPI Skin: Negative unless otherwise mentioned in HPI Head: Negative unless otherwise mentioned in HPI Eyes: Negative unless otherwise mentioned in HPI Ears: Negative unless otherwise mentioned in HPI Nose: Negative unless otherwise mentioned in HPI Mouth/Throat: Negative unless otherwise mentioned in HPI Neck: Negative unless otherwise mentioned in HPI Breasts: Negative unless otherwise mentioned in HPI Cardiovascular: Negative unless otherwise mentioned in HPI Respiratory: Negative unless otherwise mentioned in HPI Gastrointestinal: Negative unless otherwise mentioned in HPI Gynecologic: Negative unless otherwise mentioned in HPI Urinary: Negative unless otherwise mentioned in HPI Vascular: Negative unless otherwise mentioned in HPI Musculoskeletal: Negative unless otherwise mentioned in HPI Neurologic: Negative unless otherwise mentioned in HPI Hematologic: Negative unless otherwise mentioned in HPI Endocrine: Negative unless otherwise mentioned in HPI Physical Exam Vitals & Measurements Systolic Blood Pressure: 123 mmHg High (07/21/24 10:40:00) Diastolic Blood Pressure: 73 mmHg (07/21/24 10:40:00) Height/Length Measured: 160 cm (07/21/24 10:40:00) Weight Measured: 90 kg (07/21/24 10:40:00) Body Mass Index Measured: 35.16 kg/m2 (07/21/24 10:40:00) Depression Screening Scores Initial Depression Screen Score: 0 (07/21/24 10:40:00) Fall Risk Assessment Is the patient ambulatory (mobile): Yes (07/21/24 10:40:00) Have you had a fall within the past: No (07/21/24 10:40:00) Have you had 2 or more falls in the past: No (07/21/24 10:40:00) General: Well-developed, well-nourished patient in no acute distress. Vital Signs: As noted per chart. HEENT: Benign. Neck: JVP not elevated. No carotid bruits are audible. No thyromegaly. Lungs: Clear to auscultation bilaterally. Cardiac: Irregular rhythm. Normal S1, S2. 1/6 systolic murmur LSB. Abdomen: Soft, nontender. No palpable masses. Extremities: Trace LE edema. Neurologic: Grossly intact. Lab Results Last Months Labs Last Month [facility] Warfarin Data INR Level POC 1.8 07/17/24 Problem List/Past Medical History Ongoing Atrial fibrillation, permanent Atrial septal defect Chronic venous insufficiency H/O closure of congenital atrial septal defect by percutaneous transcatheter technique HLD (hyperlipidemia) Hypothyroid Moderate to severe pulmonary hypertension Normal coronary arteries Obstructive sleep apnea treated with continuous positive airway pressure (CPAP) S/P device closure of atrial septal defect S/P hysterectomy S/P total hip arthroplasty Soft tissue mass WHO group 1 pulmonary arterial hypertension Procedure/Surgical History Right Heart Cardiac Catheterization, left ventricle pressures: 07/17/23 Left and Right Heart Catheterization, left ventriculogram.: 12/28/20 Coronary Angiograms.: 12/28/20 LEFT UPPER BACK SOFT TISUUE MASS EXCISION: 04/27/15 Back operation History of ASD-surgery done to repair hole. Parathyroids removed (2) Hysterectomy LEFT total hip replacement RIGHT total hip replacement Medications ascorbic acid(Vitamin C 500 mg oral tablet), 500 mg= 1 tabs, ORAL, DAILY calcium citrate(calcium citrate 950 mg (200 mg elemental calcium) oral tablet), 950 mg= 1 tabs, ORAL, DAILY cholecalciferol(Vitamin D3 2000 intl units (50 mcg) oral capsule), 2000 intl_unit= 1 caps, ORAL, DAILY cyanocobalamin(Vitamin B12 1000 mcg oral tablet), 1000 mcg= 1 tabs, ORAL, DAILY dilTIAZem(dilTIAZem 300 mg/24 hours oral tablet, extended release), 300 mg= 1 tabs, ORAL, DAILY, 3 refills docusate(docusate sodium 100 mg oral tablet), 100 mg= 1 tabs, ORAL, DAILY escitalopram(escitalopr (more content not included)... Normal [facility] FT4on 07-15-2024 Free T4 [Mass/Vol] 1.32 ng/dL Normal 0.89-1.76 [facility] Comment on above: Result Comment: No te - New Reference Range in effect 19 Performed By: #### F T3, TSH, CMP, VIDH, A1C, GFR, LIPID ####[place] [address] [place], [place] [address]#### FT4 ####[address] [address] .GFRon 07-14-2024 Estimated Glomerular Filtration Rate 69 ml/min/1.73sqm Normal [facility] Comment on above: Result Comment: Stages of Chronic Kidney Disease (CKD) Stage Description eGFR(ml/min/1.73 sq.m.) CKD 1 Normal kidney function or >=90 normal kindney function with possible kidney damage (ex. Proteinuria) CKD 2 Kidney damage with mild loss 60-89 of kidney function CKD 3a Mild to moderate loss of kidney 45-59 function CKD 3b Moderate to severe loss of 30-44 of kindey function CKD 4 Severe loss of kidney function 15-29 CKD 5 Kidney failure <15 Note: (go live 2024) the eGFR calculation was updated to the 2020 CKD-EPI creatinine equation without a race factor to calculate the eGFR results. Performed By: #### F T3, TSH, CMP, VIDH, A1C, GFR, LIPID ####[place] [address]#### FT4 ####[place] [address] A1Con 07-14-2024 Glucose [Mass/Vol] 146 mg/dL Normal [facility] Comment on above: Result Comment: Patrick mated Average Glucose calculated by equation ((28.7xA1C)-46.7) Estimated average glucose (eAG) is a calculated value from Hemoglobin A1C and is personal financial representative of the average blood glucose level in the last 2-3 month period. Normal range: less than 114 mg/dL Performed By: #### F T3, TSH, CMP, VIDH, A1C, GFR, LIPID ####[place] [address]#### FT4 ####[place] [address] HbA1c (Bld) [Mass fraction] 6.7 % High 4.3-6.[address] [facility] Comment on above: Performed By: #### F T3, TSH, CMP, VIDH, A1C, GFR, LIPID ####[place] [address]#### FT4 ####[place] [address] CMPon 07-14-2024 Albumin Level 4.0 G/dL Normal 3.4-4.[address] [facility] Comment on above: Performed By: #### F T3, TSH, CMP, VIDH, A1C, GFR, LIPID ####[place] [address]#### FT4 ####[place] [address] Albumin/Globulin [Mass ratio] 1.1 {ratio} Normal 1.1-2.[address] [facility] Comment on above: Performed By: #### F T3, TSH, CMP, VIDH, A1C, GFR, LIPID ####[place] [address]#### FT4 ####[place] [address] ALP [Catalytic activity/Vol] 84 U/L Normal 40-[address] [facility] Comment on above: Performed By: #### F T3, TSH, CMP, VIDH, A1C, GFR, LIPID ####[place] [address]#### FT4 ####[place] [address] ALT [Catalytic activity/Vol] 31 U/L Normal 14-[address] [facility] Comment on above: Performed By: #### F T3, TSH, CMP, VIDH, A1C, GFR, LIPID ####[place] [address]#### FT4 ####[place] [address] AST [Catalytic activity/Vol] 26 U/L Normal 10-[address] [facility] Comment on above: Performed By: #### F T3, TSH, CMP, VIDH, A1C, GFR, LIPID ####[place] [address]#### FT4 ####[place] [address] Bili Total 0.7 mg/dL Normal 0.2-1.[address] [facility] Comment on above: Result Comment: Use of this assay is not recommended for patients undergoing treatment with eltrombopag due to the potential for falsely elevated results. Performed By: #### F T3, TSH, CMP, VIDH, A1C, GFR, LIPID ####[place] [address]#### FT4 ####[place] [address] BUN/Creatinine Ratio 17 ratio Normal 7-27 [facility] Comment on above: Performed By: #### F T3, TSH, CMP, VIDH, A1C, GFR, LIPID ####[place] [address]#### FT4 ####[address] [address] Calcium [Mass/Vol] 9.5 mg/dL Normal 8.4-10.2 [facility] Comment on above: Performed By: #### F T3, TSH, CMP, VIDH, A1C, GFR, LIPID ####[place] [address]#### FT4 ####[address] [address] Chloride [Moles/Vol] 104 mmol/L Normal 98-107 [facility] Comment on above: Performed By: #### F T3, TSH, CMP, VIDH, A1C, GFR, LIPID ####[place] [address]#### FT4 ####[place] [address] CO2 [Moles/Vol] 30 mmol/L Normal 23-[address] [facility] Comment on above: Performed By: #### F T3, TSH, CMP, VIDH, A1C, GFR, LIPID ####[place] [address]#### FT4 ####[address] [address] Creatinine [Mass/Vol] 0.87 mg/dL Normal 0.55-1.02 [facility] Comment on above: Result Comment: Test ing performed on Siemens Dimension EXL analyzer using a modified kinetic Dea technique. Performed By: #### F T3, TSH, CMP, VIDH, A1C, GFR, LIPID ####[place] [address]#### FT4 ####[address] [address] Electrolyte Balance 5.0 mEq/L Normal 4.0-15.0 [facility] Comment on above: Performed By: #### F T3, TSH, CMP, VIDH, A1C, GFR, LIPID ####[place] [address]#### FT4 ####[address] [address] Globulin 3.5 G/dL Normal 1.5-3.[address] [facility] Comment on above: Performed By: #### F T3, TSH, CMP, VIDH, A1C, GFR, LIPID ####[place] [address]#### FT4 ####[address] [address] Glucose [Mass/Vol] 146 mg/dL High 83-110 [facility] Comment on above: Performed By: #### F T3, TSH, CMP, VIDH, A1C, GFR, LIPID ####[place] [address]#### FT4 ####[address] [address] Potassium [Moles/Vol] 4.2 mmol/L Normal 3.5-5.1 [facility] Comment on above: Performed By: #### F T3, TSH, CMP, VIDH, A1C, GFR, LIPID ####[place] [address]#### FT4 ####[address] [address] Sodium [Moles/Vol] 139 mmol/L Normal 136-145 [facility] Comment on above: Performed By: #### F T3, TSH, CMP, VIDH, A1C, GFR, LIPID ####[place] [address]#### FT4 ####[address] [address] Total Protein 7.5 G/dL Normal 6.4-8.[address] [facility] Comment on above: Performed By: #### F T3, TSH, CMP, VIDH, A1C, GFR, LIPID ####[place] [address] [place], [place] [address]#### FT4 ####[place] [address] [place] [address] Urea nitrogen [Mass/Vol] 15 mg/dL Normal 7-[address] [facility] Comment on above: Performed By: #### F T3, TSH, CMP, VIDH, A1C, GFR, LIPID ####[facility] [place], [place] [address]#### FT4 ####[address] [address] FT3on 07-14-2024 Free T3 [Mass/Vol] 2.43 pg/mL Normal 2.30-4.00 [facility] Comment on above: Performed By: #### F T3, TSH, CMP, VIDH, A1C, GFR, LIPID ####[place] [address] [place], [place] [address]#### FT4 ####[address] [address] LABORATORYOrdered By: Tessa Corley on 07-14-2024 Albumin DL <= 20 mg/L (U) [Mass/Vol] 4.1 mg/L Invalid Interpretation Code AO ADM SS Albumin/Creatinine DL <= 20 mg/L (U) [Mass ratio] 9 mg/G Normal 0 - 30 mg/G AO Chemistry S Creatinine (U) [Mass/Vol] 48.2 mg/dL Invalid Interpretation Code AO ADM SS Cholesterol [Mass/Vol] 156 mg/dL Normal 0 - 2 00 mg/dL AO ADM SS Comment on above: Interpretive Data: C holesterol Reference Interval: Less than 200 Desirable 200-239 Borderline high risk 240 and above High risk Cholesterol in HDL [Mass/Vol] 73 mg/dL High 40 - 60 mg/dL AO ADM SS Cholesterol in LDL [Mass/Vol] 62 mg/dL Normal 0 - 130 mg/dL AO ADM SS Triglyceride [Mass/Vol] 106 mg/dL Normal 0 - 150 mg/dL AO ADM SS Comment on above: Interpretive Data: T riglyceride Reference Interval: Less than 150 Normal 150-199 Borderline high risk 200-499 High risk 500 or higher Very high risk LABORATORYOrdered By: SYSTEM SYSTEM on 07-14-2024 25-hydroxyvitamin D3 [Mass/Vol] 63.0 ng/mL Invalid Interpretation Code AO ADM SS Comment on above: Interpretive Data: I nterpretive Values Based on Total 25(OH) Vitamin D: Deficient <20 ng/mL Insufficient 20 - <30 ng/mL Sufficient 30-100 ng/mL Albumin BCP dye [Mass/Vol] 4.0 G/dL Normal 3.4 - 4.8 G/dL AO ADM SS Albumin/Globulin [Mass ratio] 1.1 {ratio} Normal 1.1 - 2.5 ratio AO ADM SS ALP [Catalytic activity/Vol] 84 U/L Normal 40 - 135 U/L AO ADM SS ALT With P-5'-P [Catalytic activity/Vol] 31 U/L Normal 14 - 59 U/L AO ADM SS AST With P-5'-P [Catalytic activity/Vol] 26 U/L Normal 10 - 40 U/L AO ADM SS Bilirubin [Mass/Vol] 0.7 mg/dL Normal 0.2 - 1 .0 mg/dL AO ADM SS Comment on above: Interpretive Data: U se of this assay is not recommended for patients undergoing treatment with eltrombopag due to the potential for falsely elevated results. Calcium [Mass/Vol] 9.5 mg/dL Normal 8.4 - 10. 2 mg/dL AO ADM SS Chloride [Moles/Vol] 104 mmol/L Normal 98 - 10 7 mmol/L AO ADM SS CO2 [Moles/Vol] 30 mmol/L Normal 23 - 31 mmol/L AO ADM SS Creatinine [Mass/Vol] 0.87 mg/dL Normal 0.55 - 1.02 mg/dL AO ADM SS Comment on above: Interpretive Data: T esting performed on Siemens Dimension EXL analyzer using a modified kinetic Dea technique. Electrolyte Balance 5.0 mEq/L Normal 4.0 - 15 .0 mEq/L AO ADM SS Estimated Glomerular Filtration Rate 69 ml/min/1.73sqm Invalid Interpretation Code AO Chemistry S Comment on above: Interpretive Data: Stages of Chronic Kidney Disease (CKD) Stage Description eGFR(ml/min/1.73 sq.m.) CKD 1 Normal kidney function or >=90 normal kindney function with possible kidney damage (ex. Proteinuria) CKD 2 Kidney damage with mild loss 60-89 of kidney function CKD 3a Mild to moderate loss of kidney 45-59 function CKD 3b Moderate to severe loss of 30-44 of kindey function CKD 4 Severe loss of kidney function 15-29 CKD 5 Kidney failure <15 Note: (go live 2024) the eGFR calculation was updated to the 2020 CKD-EPI creatinine equation without a race factor to calculate the eGFR results. Free T3 [Mass/Vol] 2.43 pg/mL Normal 2.30 - 4. 00 pg/mL AO ADM SS Globulin 3.5 G/dL Normal 1.5 - 3.8 G/dL AO ADM SS HbA1c (Bld) [Mass fraction] 6.7 % High 4.3 - 6.4 % AO ADM SS Potassium [Moles/Vol] 4.2 mmol/L Normal 3.5 - 5.1 mmol/L AO ADM SS Protein [Mass/Vol] 7.5 G/dL Normal 6.4 - 8.2 G/dL AO ADM SS Sodium [Moles/Vol] 139 mmol/L Normal 136 - 145 mmol/L AO ADM SS TSH Qn 4.81 m[IU]/L High 0.36 - 3.74 mcIU/mL AO ADM SS Urea nitrogen [Mass/Vol] 15 mg/dL Normal 7 - 18 mg/dL AO ADM SS Urea nitrogen/Creatinine [Mass ratio] 17 ratio Normal 7 - 27 ratio AO ADM SS LIPIDon 07-14-2024 Cholesterol [Mass/Vol] 156 mg/dL Normal 0-200 [facility] Comment on above: Result Comment: Chol esterol Reference Interval: Less than 200 Desirable 200-239 Borderline high risk 240 and above High risk Performed By: #### F T3, TSH, CMP, VIDH, A1C, GFR, LIPID ####[facility] [place], [place] [address]#### FT4 ####[facility] [place] [address] Cholesterol in HDL [Mass/Vol] 73 mg/dL High 40-[address] [facility] Comment on above: Performed By: #### F T3, TSH, CMP, VIDH, A1C, GFR, LIPID ####[facility] [place], [place] [address]#### FT4 ####[place] [address] [place] [address] Cholesterol in LDL [Mass/Vol] 62 mg/dL Normal 0-[address] [facility] Comment on above: Performed By: #### F T3, TSH, CMP, VIDH, A1C, GFR, LIPID ####[place] [address] [place], [place] [address]#### FT4 ####[address] [address] Triglyceride [Mass/Vol] 106 mg/dL Normal 0-[address] [facility] Comment on above: Result Comment: Trig lyceride Reference Interval: Less than 150 Normal 150-199 Borderline high risk 200-499 High risk 500 or higher Very high risk Performed By: #### F T3, TSH, CMP, VIDH, A1C, GFR, LIPID ####[place] [address] [place], [place] [address]#### FT4 ####[address] [address] Laboratory - Chemistry and C hemistry - challengeOrdered By: SYSTEM SYSTEM on 07-14-2024 Glucose [Mass/Vol] 146 mg/dL High 83 - 110 mg/dL AO Chemistry S Comment on above: Interpretive Data: E stimated average glucose (eAG) is a calculated value from Hemoglobin A1C and is personal financial representative of the average blood glucose level in the last 2-3 month period. Normal range: less than 114 mg/dL MALBRon 07-14-2024 U Creatinine 48.2 mg/dL Normal [facility] Comment on above: Performed By: #### M ALBR ####[place] [address] [place], [place] [address] U Microalb 4.1 mg/L Normal [facility] Comment on above: Performed By: #### M ALBR ####[place] [address] [place], [place] [address] U Ratio Alb/Cre 9 mg/G Normal 0-[address] [facility] Comment on above: Performed By: #### M ALBR ####[place] [address] [place], [place] [address] TSHon 03-03-2025 TSH Qn 4.81 m[IU]/L High 0.36-3.[address] [facility] Comment on above: Performed By: #### F T3, TSH, CMP, VIDH, A1C, GFR, LIPID ####[place] [address] [place], [place] [address]#### FT4 ####[place] [address] VIDHon 07-14-2024 Vit. D 25-Hydroxy 63.0 ng/mL Normal [facility] Comment on above: Result Comment: Inte rpretive Values Based on Total 25(OH) Vitamin D: Deficient <20 ng/mL Insufficient 20 - <30 ng/mL Sufficient 30-100 ng/mL Performed By: #### F T3, TSH, CMP, VIDH, A1C, GFR, LIPID ####[place] [address] [place], [place] [address]#### FT4 ####[place] [address] XR ANKLE MINIMUM 3 VIEWS RIG HTon 06-24-2024 XR ANKLE MINIMUM 3 VIEWS RIGHT ORIGINAL EXAMINATION: THREE XRAY VIEWS OF THE RIGHT ANKLE06/24/2024 1:04 pm ANKLE 3 VIEWS RIGHT COMPARISON: None HISTORY: ORDERING SYSTEM PROVIDED HISTORY: Reason for Exam: Pain following putting on a shoe, recent twisting injury FINDINGS: No acute fracture or dislocation is identified. The ankle mortise and talar dome are normal. Calcaneal spurring is seen. Calcifications of the Achilles tendon and plantar fascia are also noted. The joint spaces are maintained. There is no radiopaque foreign body. Vascular calcifications are seen. IMPRESSION: No acute fracture or dislocation. I have personally reviewed the images of this examination and agree with the resident's findings and interpretation. Interpreted by: Asim Posada MD Preliminary Report By: Elaine Luong Electronically signed By Asim Posada MD Dictated Date: 06/24/2024 1:16:23 PM Prelim Date: 06/24/2024 1:25:30 PM Sign Date: 06/24/2024 1:25:30 PM Ordering Provider: KASH Fry [facility] Ambulatory Clinical Summaryo n 06-19-2024 Ambulatory Clinical Summary RAYMON BAH:1950 Registration Date:06/19/2024 Ambulatory Visit Instructions Discharge Vitals Height 62.99 in (160 cm) Anticoagulation Instructions - Anticoagulation Information INR: 2 INR Range: 2 - 3 Indication for Treatment: Atrial fibrillation Warfarin Dosing Schedule Warfarin New Dose One Tablet Strength - 2 mg tab Week 1 Sun Sat Daily Dose 6 mg 6 mg 6 mg 6 mg 6 mg 6 mg 6 mg # of Tablets 3 tabs 3 tabs 3 tabs 3 tabs 3 tabs 3 tabs 3 tabs Warfarin Patient Instructions - Home monitor - next INR 2 Notify the Coumadin Clinic if you start or change any medication, non-prescription medication, herbal or vitamin supplement. Images on this handout are intended as a visual representation only. Your medication may appear different from the images displayed on this handout. Normal [facility] Anticoagulation Therapy Mgmt - Texton 06-19-2024 Anticoagulation Therapy Mgmt - Text Anticoagulation Therapy Management Entered On: 06/19/2024 13:09 EST Performed On: 06/19/2024 13:07 EST by Ervin Avitia RPh Vital Signs Height/Length Measured : 160 cm(Converted to: 62.99 in) Ervin Avitia RPh - 06/19/2024 13:07 EST Anticoagulation Visit Assessment *INR : 2 Anticoagulant INR Goal Lower : 2 Anticoagulant INR Goal Upper : 3 *Type of Visit : Home Monitor Anticoagulation Indication : Atrial fibrillation Anticoagulant Start : 12/27/2010 EDT Anticoagulant Duration : Undetermined Anticoag Prescribing Provider : AMY SHANKAR, ANSHU Contributing Factors : [employer] home monitor patient, tests every 2 weeks Warfarin Pt Reported Previous Week Dose : Sun Sat Weekly Total Dose Week 1 6 mg 6 mg 6 mg 6 mg 6 mg 6 mg 6 mg 42 mg Week 2 mg mg mg mg mg mg mg mg Week 3 mg mg mg mg mg mg mg mg Week 4 mg mg mg mg mg mg mg mg Single Tab : Yes Anticoagulation Progress Note : Home monitor via [employer]. INR on lower end of normal. Will continue same dosage. Next INR in 2 weeks. Progress Note : Home monitor - next INR 07/03 Ervin Avitia RPh - 06/19/2024 13:07 EST Home Health / Home Monitor *Telephone Interaction : No telephone interaction required Ervin Avitia RPh - 06/19/2024 13:07 EST Warfarin Single Tablet One Tab Strength : 2 mg tab Print Dose/Tabs Visit Instructions : Dose and tabs Sunday : 6 mg Sunday : 6 mg Sunday : 6 mg Sunday : 6 mg : 6 mg Sunday : 6 mg Sunday : 6 mg Warfarin Wk 1 Total Dose : 42 mg Sunday : 3 tabs Sunday : 3 tabs Sunday : 3 tabs Sunday : 3 tabs : 3 tabs Sunday : 3 tabs Sunday : 3 tabs Ervin Avitia RPh - 06/19/2024 13:07 EST Normal [facility] Coumadin Pharmacist Noteon 0 06-19-2024 Coumadin Pharmacist Note RAYMON BAH V :1950 Registration Date:06/19/2024 Vitals & Measurements No Vital Signs available for this visit. Visit Information Anticoag Indication - Atrial fibrillation Anticoag Start - 12/27/2010 Referring Physician - ANSHU DAMON MD Anticochiqui Prescribing Provider: ANSHU DAMON MD Anticochiqui INR Goal Lower: 2 Anticoag INR Goal Upper: 3 Contributing Factors 06/19/24 13:07:00 [employer] home monitor patient, tests every 2 weeks Signed By: Ervin Avitia RPh Warfarin Tab Strength Warfarin New Dose One Tablet Strength: 2 mg tab (06/19/24 13:07:00) INR Level Event Name Event Result INR Level POC 2 Visit Assessment Anticoagulation Progress Note 06/19/24 13:07:00 Home monitor via [employer]. INR on lower end of normal. Will continue same dosage. Next INR in 2 weeks. Signed By: Ervin Avitia RPh New Dosing Information & Patient Instructions Total Sun Sat Week 1 42 mg 6 mg 6 mg 6 mg 6 mg 6 mg 6 mg 6 mg Week 2 None None None None None None None Week 3 None None None None None None None Week 4 None None None None None None None Warfarin Patient InstructionsHome monitor - next INR 2/20 Normal [facility] Ambulatory Clinical Summaryo n 06-05-2024 Ambulatory Clinical Summary RAYMON BAH V :1950 Registration Date:06/05/2024 Ambulatory Visit Instructions Discharge Vitals Height 62.99 in (160 cm) Anticoagulation Instructions - Anticoagulation Information INR: 1.9 INR Range: 2 - 3 Indication for Treatment: Atrial fibrillation Warfarin Dosing Schedule Warfarin New Dose One Tablet Strength - 2 mg tab Week 1 Sun Daily Dose 6 mg 6 mg 6 mg 6 mg 6 mg 6 mg 6 mg # of Tablets 3 tabs 3 tabs 3 tabs 3 tabs 3 tabs 3 tabs 3 tabs Warfarin Patient Instructions - Take 4 tablets of warfarin today (06/05/24) then continue dosing above. Next home monitor INR 06/19/24. Notify the Coumadin Clinic if you start or change any medication, non-prescription medication, herbal or vitamin supplement. Images on this handout are intended as a visual representation only. Your medication may appear different from the images displayed on this handout. Normal [facility] Anticoagulation Therapy Mgmt - Texton 06-05-2024 Anticoagulation Therapy Mgmt - Text Anticoagulation Therapy Management Entered On: 06/05/2024 11:10 EST Performed On: 06/05/2024 11:07 EST by Dev VargasEdwin Vital Signs Height/Length Measured : 160 cm(Converted to: 62.99 in) Edwin Méndez RPh - 06/05/2024 11:07 EST Anticoagulation Visit Assessment *INR : 1.9 Anticoagulant INR Goal Lower : 2 Anticoagulant INR Goal Upper : 3 Information Given By : Self *Type of Visit : Home Monitor Anticoagulation Indication : Atrial fibrillation Anticoagulant Start : 12/27/2010 EDT Anticoagulant Duration : Undetermined Anticoag Prescribing Provider : AMY SHANKAR, ANSHU Contributing Factors : [employer] home monitor patient, tests every 2 weeks Warfarin Pt Reported Previous Week Dose : Sun Sun Weekly Total Dose Week 1 6 mg 6 mg 6 mg 6 mg 6 mg 6 mg 6 mg 42 mg Week 2 mg mg mg mg mg mg mg mg Week 3 mg mg mg mg mg mg mg mg Week 4 mg mg mg mg mg mg mg mg Single Tab : Yes Anticoagulation Progress Note : Patient called in INR results prior to getting results by Hugh. INR low, possibly due to eating cabbage rolls. She is going to have them again today so will bolus warfarin today. Dose recently increased. If low next reading my need an additional dose increase. Progress Note : Take 4 tablets of warfarin today (06/05/24) then continue dosing above. Next home monitor INR 06/19/24. Edwin Méndez RPh - 06/05/2024 11:07 EST Home Health / Home Monitor *Telephone Interaction : No telephone interaction required Edwin Méndez RPh - 06/05/2024 11:07 EST Warfarin Single Tablet One Tab Strength : 2 mg tab Print Dose/Tabs Visit Instructions : Dose and tabs Sunday : 6 mg Sunday : 6 mg Sunday : 6 mg Sunday : 6 mg : 6 mg Sunday : 6 mg Sunday : 6 mg Warfarin Wk 1 Total Dose : 42 mg Sunday : 3 tabs Sunday : 3 tabs Sunday : 3 tabs Sunday : 3 tabs : 3 tabs Sunday : 3 tabs Sunday : 3 tabs Edwin Méndez RPh - 06/05/2024 11:07 EST Normal [facility] Coumadin Pharmacist Noteon 0 06-05-2024 Coumadin Pharmacist Note RAYMON BAH V :1950 Registration Date:06/05/2024 Vitals & Measurements No Vital Signs available for this visit. Visit Information Anticoag Indication - Atrial fibrillation Anticoag Start - 12/27/2010 Referring Physician - ANSHU DAMON MD Anticochiqui Prescribing Provider: ANSHU DAMON MD Anticochiqui INR Goal Lower: 2 Anticoag INR Goal Upper: 3 Contributing Factors 06/05/24 11:07:00 [employer] home monitor patient, tests every 2 weeks Signed By: Edwin Méndez RPh Warfarin Tab Strength Warfarin New Dose One Tablet Strength: 2 mg tab (06/05/24 11:07:00) INR Level Event Name Event Result INR Level POC 1.9 Visit Assessment Anticoagulation Progress Note 06/05/24 11:07:00 Patient called in INR results prior to getting results by [employer]. INR low, possibly due to eating cabbage rolls. She is going to have them again today so will bolus warfarin today. Dose recently increased. If low next reading my need an additional dose increase. Signed By: Edwin Méndez RPh New Dosing Information & Patient Instructions Total Sun Sun Sat Week 1 42 mg 6 mg 6 mg 6 mg 6 mg 6 mg 6 mg 6 mg Week 2 None None None None None None None Week 3 None None None None None None None Week 4 None None None None None None None Warfarin Patient InstructionsTake 4 tablets of warfarin today (06/05/24) then continue dosing above. Next home monitor INR 06/19/24. Normal [facility] Ambulatory Clinical Summaryo n 05-22-2024 Ambulatory Clinical Summary RAYMON BAH V :1950 Registration Date:05/22/2024 Ambulatory Visit Instructions Discharge Vitals Height 62.99 in (160 cm) Anticoagulation Instructions - Anticoagulation Information INR: 2.2 INR Range: 2 - 3 Indication for Treatment: Atrial fibrillation Warfarin Dosing Schedule Warfarin New Dose One Tablet Strength - 2 mg tab Week 1 Sun Sun Sat Daily Dose 6 mg 6 mg 6 mg 6 mg 6 mg 6 mg 6 mg # of Tablets 3 tabs 3 tabs 3 tabs 3 tabs 3 tabs 3 tabs 3 tabs Warfarin Patient Instructions - Next home monitor INR 06/05/24 Notify the Coumadin Clinic if you start or change any medication, non-prescription medication, herbal or vitamin supplement. Images on this handout are intended as a visual representation only. Your medication may appear different from the images displayed on this handout. Normal [facility] Anticoagulation Therapy Mgmt - Texton 05-22-2024 Anticoagulation Therapy Mgmt - Text Anticoagulation Therapy Management Entered On: 05/22/2024 11:14 EST Performed On: 05/22/2024 11:14 EST by Edwin Méndez RPh Vital Signs Height/Length Measured : 160 cm(Converted to: 62.99 in) Edwin Méndez RPh - 05/22/2024 11:14 EST Anticoagulation Visit Assessment Anticoagulation Progress Note : Called and confirmed dose increase from last week. Will continue current dosing. Patient needs a refill which I will send in. Progress Note : Next home monitor INR 06/05/24 Edwin Méndez RPh - 05/22/2024 11:19 EST *INR : 2.2 Anticoagulant INR Goal Lower : 2 Anticoagulant INR Goal Upper : 3 Information Given By : Self *Type of Visit : Home Monitor Anticoagulation Indication : Atrial fibrillation Anticoagulant Start : 12/27/2010 EDT Anticoagulant Duration : Undetermined Anticoag Prescribing Provider : AMY SHANKAR, ANSHU Contributing Factors : [employer] home monitor patient, tests every 2 weeks Warfarin Pt Reported Previous Week Dose : Sun Sun Weekly Total Dose Week 1 6 mg 6 mg 6 mg 6 mg 6 mg 6 mg 6 mg 42 mg Week 2 mg mg mg mg mg mg mg mg Week 3 mg mg mg mg mg mg mg mg Week 4 mg mg mg mg mg mg mg mg Single Tab : Yes Edwin Méndez RPh - 05/22/2024 11:14 EST Home Health / Home Monitor *Telephone Interaction : No telephone interaction required Edwin Méndez RPh - 05/22/2024 11:14 EST Warfarin Single Tablet One Tab Strength : 2 mg tab Print Dose/Tabs Visit Instructions : Dose and tabs Sunday : 6 mg Sunday : 6 mg Sunday : 6 mg Sunday : 6 mg : 6 mg Sunday : 6 mg Sunday : 6 mg Warfarin Wk 1 Total Dose : 42 mg Sunday : 3 tabs Sunday : 3 tabs Sunday : 3 tabs Sunday : 3 tabs : 3 tabs Sunday : 3 tabs Sunday : 3 tabs Edwin Méndez RPh - 05/22/2024 11:14 EST Normal [facility] Anticoagulation Therapy Refi ll Req -Texton 05-22-2024 Anticoagulation Therapy Refill Req -Text Anticoagulation Therapy Refill Request Entered On: 05/22/2024 11:23 EST Performed On: 05/22/2024 11:22 EST by Edwin Méndez RPh Anticoagulation Refill Request Refill Request : [facility] Warfarin 2mg tabs 270 tabs for 90 days 1RF Edwin Sanchez RPh - 05/22/2024 11:22 EST Normal [facility] Coumadin Pharmacist Noteon 0 05-22-2024 Coumadin Pharmacist Note RAYMON BAH V :1950 Registration Date:05/22/2024 Vitals & Measurements No Vital Signs available for this visit. Visit Information Anticoag Indication - Atrial fibrillation Anticoag Start - 12/27/2010 Referring Physician - ANSHU DAMON MD Anticoag Prescribing Provider: ANSHU DAMON MD Anticochiqui INR Goal Lower: 2 Anticoag INR Goal Upper: 3 Contributing Factors 05/22/24 11:14:00 [employer] home monitor patient, tests every 2 weeks Signed By: Edwin Méndez RPh Warfarin Tab Strength Warfarin New Dose One Tablet Strength: 2 mg tab (05/22/24 11:14:00) INR Level Event Name Event Result INR Level POC 2.2 Visit Assessment Anticoagulation Progress Note 05/22/24 11:14:00 Called and confirmed dose increase from last week. Will continue current dosing. Patient needs a refill which I will send in. Signed By: Edwin Méndez RPh New Dosing Information & Patient Instructions Total Sun Mon Sun Week 1 42 mg 6 mg 6 mg 6 mg 6 mg 6 mg 6 mg 6 mg Week 2 None None None None None None None Week 3 None None None None None None None Week 4 None None None None None None None Warfarin Patient InstructionsNext home monitor INR 06/05/24 Normal [facility] US BREAST RIGHT LIMITEDon US BREAST RIGHT LIMITED ORIGINAL FROM: [facility] [place], [place] [address] PROCEDURE FOR: RAYMON BAH [address] [place] [address] Home: PID#: [id number] Exam#: [id number] : 1950 Age: 73 TO: FOREIGN ELLINGTON DO [address] [place] [id number] Fax: NO FAX EXAMINATION: ULTRASOUND OF THE RIGHT BREAST 05/12/2024 12:50 pm TECHNIQUE: Color flow and recinos scale targeted ultrasound of the 9 o'clock region were performed. Permanently stored images were reviewed. COMPARISON: Mammogram April 25, 2024, ultrasound December 01, 2021, June 08, 2022 HISTORY: ORDERING SYSTEM PROVIDED HISTORY: Reason for Exam: abn mammo FINDINGS: There is an 8 mm well-circumscribed oval hypoechoic mass within the right breast at 9 o'clock, 4 cm from the nipple. There are a few internal echoes and an associated calcification. No increased vascularity. There is through transmission of sound. This is felt to correlate with the mammographic finding and has slightly increased in size from 2021 involving the fluid component. IMPRESSION: The 8 mm oval hypoechoic mass within the right breast resembles a complicated cyst and appears benign. This requires no further follow-up. The patient may return to her annual screening mammogram schedule. BIRADS: BI-RADS: 2: Benign RECALL: return to screening RECALL TYPE: mammo LETTER SENT: Normal BI-RADS 1 and 2 Interpreted by: Kayy Naranjo MD Preliminary Report By: Kayy Naranjo MD Electronically signed By Kayy Naranjo MD Dictated Date: 05/13/2024 9:21:51 AM Prelim Date: 05/13/2024 9:26:42 AM Sign Date: 05/13/2024 9:26:42 AM Ordering Provider: FOREIGN ELLINGTON CLINICAL: MAMMOGRAPHIC DENSITY RIGHT BREAST. Picker Packer: TYRON WILHELM RT (R, CT), RDMS letter sent: Normal BI-RADS 1 and 2 Ultrasound BI-RADS: 2 Benign [address] [facility] Ambulatory Clinical Summaryo n 05-12-2024 Ambulatory Clinical Summary RAYMON BAH V :1950 Registration Date:05/12/2024 Ambulatory Visit Instructions Discharge Vitals Height 62.99 in (160 cm) Anticoagulation Instructions - Anticoagulation Information INR: 1.9 INR Range: 2 - 3 Indication for Treatment: Atrial fibrillation Warfarin Dosing Schedule Warfarin New Dose One Tablet Strength - 2 mg tab Week 1 Sun Daily Dose 6 mg 6 mg 6 mg 6 mg 6 mg 6 mg 6 mg # of Tablets 3 tabs 3 tabs 3 tabs 3 tabs 3 tabs 3 tabs 3 tabs Warfarin Patient Instructions - Home monitor on 05/19/24 Notify the Coumadin Clinic if you start or change any medication, non-prescription medication, herbal or vitamin supplement. Images on this handout are intended as a visual representation only. Your medication may appear different from the images displayed on this handout. Normal [facility] Anticoagulation Therapy Mgmt - Texton 05-12-2024 Anticoagulation Therapy Mgmt - Text Anticoagulation Therapy Management Entered On: 05/12/2024 10:42 EST Performed On: 05/12/2024 10:40 EST by Ervin Avitia RPh Vital Signs Height/Length Measured : 160 cm(Converted to: 62.99 in) Ervin Avitia RPh - 05/12/2024 10:40 EST Anticoagulation Visit Assessment *INR : 1.9 Anticoagulant INR Goal Lower : 2 Anticoagulant INR Goal Upper : 3 *Type of Visit : Home Monitor Anticoagulation Indication : Atrial fibrillation Anticoagulant Start : 12/27/2010 EDT Anticoagulant Duration : Undetermined Anticoag Prescribing Provider : ANSHU DAMON MD Contributing Factors : [employer] home monitor patient, tests every 2 weeks Warfarin Pt Reported Previous Week Dose : Sun Sun Weekly Total Dose Week 1 6 mg 6 mg 6 mg 6 mg 6 mg 6 mg 4 mg 40 mg Week 2 mg mg mg mg mg mg mg mg Week 3 mg mg mg mg mg mg mg mg Week 4 mg mg mg mg mg mg mg mg Single Tab : Yes Anticoagulation Progress Note : No missed doses. No b/bx. No n/v/d. Did have more vit k rich foods over the holiday. INR has been 2 on several checks. Will increase her to 3 tabs each day and then reecheck in 1 week instead of 2. Progress Note : Home monitor on 05/19/24 Ervin Avitia RPh - 05/12/2024 10:40 EST Home Health / Home Monitor *Telephone Interaction : No telephone interaction required Ervin Avitia RPh - 05/12/2024 10:40 EST Warfarin Single Tablet One Tab Strength : 2 mg tab Sunday : 6 mg Sunday : 6 mg Sunday : 6 mg Sunday : 6 mg : 6 mg Sunday : 6 mg Sunday : 6 mg Warfarin Wk 1 Total Dose : 42 mg Sunday : 3 tabs Sunday : 3 tabs Sunday : 3 tabs Sunday : 3 tabs : 3 tabs Sunday : 3 tabs Sunday : 3 tabs Ervin Avitia RPh - 05/12/2024 10:40 EST Normal [facility] Coumadin Pharmacist Noteon 1 Coumadin Pharmacist Note RAYMON BAH V :1950 Registration Date:05/12/2024 Vitals & Measurements No Vital Signs available for this visit. Visit Information Anticoag Indication - Atrial fibrillation Anticoag Start - 12/27/2010 Referring Physician - ANSHU DAMON MD Anticoag Prescribing Provider: ANSHU DAMON MD Anticoag INR Goal Lower: 2 Anticoag INR Goal Upper: 3 Contributing Factors 05/12/24 10:40:00 [employer] home monitor patient, tests every 2 weeks Signed By: Ervin Avitia RPh Warfarin Tab Strength Warfarin New Dose One Tablet Strength: 2 mg tab (05/12/24 10:40:00) INR Level Event Name Event Result INR Level POC 1.9 Visit Assessment Anticoagulation Progress Note 05/12/24 10:40:00 No missed doses. No b/bx. No n/v/d. Did have more vit k rich foods over the holiday. INR has been 2 on several checks. Will increase her to 3 tabs each day and then reecheck in 1 week instead of 2. Signed By: Ervin Avitia RPh New Dosing Information & Patient Instructions Total Sun Sun Week 1 42 mg 6 mg 6 mg 6 mg 6 mg 6 mg 6 mg 6 mg Week 2 None None None None None None None Week 3 None None None None None None None Week 4 None None None None None None None Warfarin Patient InstructionsHome monitor on 05/19/24 [facility] MA MAMMOGRAM SCREENING BILAT ERAL W/TOMOon 05-03-2024 MA MAMMOGRAM SCREENING BILATERAL W/NAHID ORIGINAL FROM: [address] [address] PROCEDURE [place] [address] Home: PID#: [id number] Exam#: [id number] : 1950 Age: 73 TO: FOREIGN ELLINGTON [address] [address] Fax: NO FAX EXAMINATION: SCREENING DIGITAL BILATERAL MAMMOGRAM WITH TOMOSYNTHESIS, 04/25/2024 2:16 pm TECHNIQUE: Screening mammography of the bilateral breasts was performed with tomosynthesis. 2D standard and 3D tomosynthesis combination imaging performed through both breasts in the MLO and CC projection. Computer aided detection was utilized in the interpretation of this exam. COMPARISON: Mammogram 01/01/2023, 06/08/2022, 1522, breast ultrasound 06/08/2022, November 25, 2021, August 17, 2020, November 18, 2019 HISTORY: Breast cancer screening. FINDINGS: BREAST DENSITY: Scattered fibroglandular tissue There is an 8 mm oval mass within the right breast at 9 o'clock, middle depth. This is seen in additional views and is slightly more prominent. There are scattered calcifications in the breasts bilaterally. There are no additional significant findings in either breast. IMPRESSION: The 8 mm oval mass within the right breast appears indeterminate. Right breast ultrasound is recommended for further evaluation. We will contact the patient to arrange the exam. Tyrlester zick risk calculations, generated with the history provided, report this patient's 10 year risk and lifetime risk for developing breast cancer at 3.0% and 3.0%, respectively. Based on this assessment tool, if the patient's calculated lifetime risk is below 20%, then the patient is considered at average risk for developing breast cancer. If the patient's calculated lifetime risk is at or above 20%, then the patient is considered high risk for developing breast cancer and may be a candidate for supplemental breast MRI screening in addition to annual mammographic screening per the [employer] [employer]. I have personally reviewed the images of this examination and agree with the resident's findings and interpretation. BIRADS: MAMMOGRAM BI-RADS: 0: Needs addl evaluation RECALL: immediate RECALL TYPE: Right US LETTER SENT: Abnormal-Needs additional work up BI-RADS 0 Interpreted by: Kayy Naranjo MD Preliminary Report By: Cas Harley Electronically signed By Kayy Naranjo MD Dictated Date: 05/01/2024 8:39:44 AM Prelim Date: 05/03/2024 1:27:27 PM Sign Date: 05/03/2024 1:27:27 PM Ordering Provider: FOREIGN ELLINGTON Picker Packer: TEO PRESTON RT (R)(M) letter sent: Abnormal-Needs additional work up BI-RADS 0 Mammogram BI-RADS: 0 Indeterminate Normal [facility] Ambulatory Clinical Summaryo n 04-25-2024 Ambulatory Clinical Summary RAYMON BAH V :1950 Registration Date:04/25/2024 Ambulatory Visit Instructions Discharge Vitals Height 62.99 in (160 cm) Anticoagulation Instructions - Anticoagulation Information INR: 2.4 INR Range: 2 - 3 Indication for Treatment: Atrial fibrillation Warfarin Dosing Schedule Warfarin New Dose One Tablet Strength - 2 mg tab Week 1 Sun Sat Daily Dose 6 mg 6 mg 6 mg 6 mg 6 mg 6 mg 4 mg # of Tablets 3 tabs 3 tabs 3 tabs 3 tabs 3 tabs 3 tabs 2 tabs Warfarin Patient Instructions - Next home monitor INR 05/09/24 Notify the Coumadin Clinic if you start or change any medication, non-prescription medication, herbal or vitamin supplement. Images on this handout are intended as a visual representation only. Your medication may appear different from the images displayed on this handout. Normal [facility] Anticoagulation Therapy Mgmt - Texton 04-25-2024 Anticoagulation Therapy Mgmt - Text Anticoagulation Therapy Management Entered On: 04/25/2024 11:26 EST Performed On: 04/25/2024 11:25 EST by Edwin Méndez RPh Vital Signs Height/Length Measured : 160 cm(Converted to: 62.99 in) Edwin Méndez RPh - 04/25/2024 11:25 EST Anticoagulation Visit Assessment *INR : 2.4 Anticoagulant INR Goal Lower : 2 Anticoagulant INR Goal Upper : 3 *Type of Visit : Home Monitor Anticoagulation Indication : Atrial fibrillation Anticoagulant Start : 12/27/2010 EDT Anticoagulant Duration : Undetermined Anticoag Prescribing Provider : AMY SHANKAR, ANSHU Contributing Factors : [employer] home monitor patient, tests every 2 weeks Warfarin Pt Reported Previous Week Dose : Sun Sat Weekly Total Dose Week 1 6 mg 6 mg 6 mg 6 mg 6 mg 6 mg 4 mg 40 mg Week 2 mg mg mg mg mg mg mg mg Week 3 mg mg mg mg mg mg mg mg Week 4 mg mg mg mg mg mg mg mg Single Tab : Yes Progress Note : Next home monitor INR 05/09/24 Edwin Méndez RPh 04/25/2024 11:25 EST Home Health / Home Monitor *Telephone Interaction : No telephone interaction required Dev Vargas [facility] 04/25/2024 11:25 EST Warfarin Single Tablet One Tab Strength : 2 mg tab Print Dose/Tabs Visit Instructions : Dose and tabs Sunday : 6 mg Sunday : 6 mg Sunday : 6 mg Sunday : 6 mg : 6 mg Sunday : 6 mg Sunday : 4 mg Warfarin Wk 1 Total Dose : 40 mg Sunday : 3 tabs Sunday : 3 tabs Sunday : 3 tabs Sunday : 3 tabs : 3 tabs Sunday : 3 tabs Sunday : 2 tabs Dev Vargas [facility] 04/25/2024 11:25 EST Normal [facility] BD BONE DENSITY DEXA AXIAL S [facility] 04-25-2024 BD BONE DENSITY DEXA AXIAL SKELETON ORIGINAL EXAMINATION: BONE DENSITOMETRY 04/25/2024 3:03 pm TECHNIQUE: A bone density dual x-ray absorptiometry (DEXA) scan was performed of the axial (e.g. hips, spine) and/or appendicular (e.g. radius) skeleton as appropriate. COMPARISON: 03/20/2022. HISTORY: ORDERING SYSTEM PROVIDED HISTORY: Reason for Exam: Osteoporosis Screening FINDINGS: T Score Left Forearm: -2.4 Left Forearm: 0.543(g/cm2) T Score Right Forearm: -2.7 Right Forearm: 0.528 (g/cm2) BMD change from previous right forearm: 0.4% IMPRESSION: Osteoporosis by WHO criteria. World Health Organization criteria: (Comparing with young normal sex matched population) - Normal: T-score at or above -1 SD (standard deviation) - Osteopenia: T-score between -1 and -2.5 SD - Osteoporosis: T-score at or below -2.5 SD The NOF recommends that FDA-approved medical therapies be considered in post-menopausal women and men age >/= 50 years with a: * Hip or vertebral fracture, or * T-score of /= 20% for major osteoporotic fractures or * >/= 3% for hip fractures All treatment decisions require clinical judgement and consideration of individual patient factors, including patient preferences, comorbidities, previous drug use, risk factors not captured in the FRAX registered model (e.g., frailty, falls, vitamin D deficiency, increased bone turnover, interval significant decline in bone density) and possible under- or over-estimation of fracture risk by FRAX. Interpreted by: Daniel Meeks DO Preliminary Report By: Daniel Meeks DO Electronically signed By Daniel Meeks DO Dictated Date: 04/25/2024 4:42:59 PM Prelim Date: 04/25/2024 4:44:20 PM Sign Date: 04/25/2024 4:44:20 PM Ordering Provider: FOREIGN Fry [facility] Coumadin Pharmacist Noteon 1 06-26-2023 Coumadin Pharmacist Note LYNN RAYMON Chrissie :1950 Registration Date:04/25/2024 Vitals & Measurements No Vital Signs available for this visit. Visit Information Anticoag Indication - Atrial fibrillation Anticoag Start - 12/27/2010 Referring Physician - ANSHU DAMON MD Anticoag Prescribing Provider: ANSHU DAMON MD Anticochiqui INR Goal Lower: 2 Anticoag INR Goal Upper: 3 Contributing Factors 04/25/24 11:25:00 [employer] home monitor patient, tests every 2 weeks Signed By: Edwin Méndez RPh Warfarin Tab Strength Warfarin New Dose One Tablet Strength: 2 mg tab (04/25/24 11:25:00) INR Level Event Name Event Result INR Level POC 2.4 Visit Assessment No qualifying data available. New Dosing Information & Patient Instructions Total Sun Sun Week 1 40 mg 6 mg 6 mg 6 mg 6 mg 6 mg 6 mg 4 mg Week 2 None None None None None None None Week 3 None None None None None None None Week 4 None None None None None None None Warfarin Patient InstructionsNext home monitor INR 05/09/24 Normal [facility] INTABon 04-17-2024 Intrinsic Factor Abs 1.1 Au/mL Normal 0.0-1.1 [facility] Comment on above: Result Comment: Perf ormed At: [facility] [id number] Balaji Taylor MD Ph:[phone] Performed By: #### A 1C, CBC, 280417, ADIFF, 951043, BMP, ANEU, GFR ####[address] [place], [place] [address] Woody 04-16-2024 Gastrin 27 pg/mL Normal 0-[address] [facility] Comment on above: Result Comment: Siem ens Immulite 2000 Immunochemiluminometric assay (ICMA) Values obtained with different assay methods or kits cannot be used interchangeably. Results cannot be interpreted as absolute evidence of the presence or absence of malignant disease. Performed At: [facility] [id number] Balaji Taylor MD Ph:[phone] Performed By: #### A 1C, CBC, 306717, ADIFF, 240228, BMP, ANEU, GFR ####[place] [address] [place], [place] [address] .Auto Diffon 04-14-2024 Basophil, Absolute 0.0 10 3/mcL Normal 0.0-0.2 [facility] Comment on above: Performed By: #### A 1C, CBC, 950466, ADIFF, 860822, BMP, ANEU, GFR ####[place] [address] [place], [place] [address] Basophils/100 WBC (Bld) 0.4 % Normal 0.0-2.[address] [facility] Comment on above: Performed By: #### A 1C, CBC, 164773, ADIFF, 414528, BMP, ANEU, GFR ####[facility] [place], [place] [address] Eosinophil, Absolute 0.1 10 3/mcL Normal 0.0-0.7 [facility] Comment on above: Performed By: #### A 1C, CBC, 666007, ADIFF, 593516, BMP, ANEU, GFR ####[place] [address] [place], [place] [address] Eosinophils/100 WBC (Bld) 1.0 % Normal 0.0-7.[address] [facility] Comment on above: Performed By: #### A 1C, CBC, 469562, ADIFF, 353491, BMP, ANEU, GFR ####[address] [address] Lymphocyte, Absolute 1.5 10 3/mcL Normal 0.9-4.3 [facility] Comment on above: Performed By: #### A 1C, CBC, 631655, ADIFF, 825997, BMP, ANEU, GFR ####[address] [address] Lymphocytes/100 WBC (Bld) 23.2 % Normal 20.0-40.[address] [facility] Comment on above: Performed By: #### A 1C, CBC, 100889, ADIFF, 483079, BMP, ANEU, GFR ####[address] [address] Monocyte, Absolute 0.6 10 3/mcL Normal 0.1-1.4 [facility] Comment on above: Performed By: #### A 1C, CBC, 050401, ADIFF, 142943, BMP, ANEU, GFR ####[address] [address] Monocytes/100 WBC (Bld) 9.1 % Normal 2.0-13.[address] [facility] Comment on above: Performed By: #### A 1C, CBC, 763640, ADIFF, 426790, BMP, ANEU, GFR ####[address] [address] Neutrophils/100 WBC (Bld) 66.3 % Normal 50.0-75.[address] [facility] Comment on above: Performed By: #### A 1C, CBC, 320623, ADIFF, 631412, BMP, ANEU, GFR ####[address] [address] .GFRon 04-14-2024 GFR 78 ml/min/1.73sqm Normal [facility] Comment on above: Result Comment: GFR Population mean for , Non- Americans Ages 20-29 = 116 mL/min/1.73 sq.m. Ages 30-39 = 107 mL/min/1.73 sq.m. Ages 40-49 = 99 mL/min/1.73 sq.m. Ages 50-59 = 93 mL/min/1.73 sq.m. Ages 60-69 = 85 mL/min/1.73 sq.m. Ages 70+ = 75 mL/min/1.73 sq.m. Chronic Kidney Disease: Less than 60 mL/min/1.73 square meters End Stage Renal Disease: Less than 15 mL/min/1.73 square meters Performed By: #### A 1C, CBC, 361829, ADIFF, 722945, BMP, ANEU, GFR ####[place] [address] [place] [address] GFR Non- 64 ml/min/1.73sqm Normal [facility] Comment on above: Result Comment: GFR Population mean for , Non- Americans Ages 20-29 = 116 mL/min/1.73 sq.m. Ages 30-39 = 107 mL/min/1.73 sq.m. Ages 40-49 = 99 mL/min/1.73 sq.m. Ages 50-59 = 93 mL/min/1.73 sq.m. Ages 60-69 = 85 mL/min/1.73 sq.m. Ages 70+ = 75 mL/min/1.73 sq.m. Chronic Kidney Disease: Less than 60 mL/min/1.73 square meters End Stage Renal Disease: Less than 15 mL/min/1.73 square meters Performed By: #### A 1C, CBC, 735884, ADIFF, 074013, BMP, ANEU, GFR ####[place] [address] [place], [place] [address] .NEUABSon 04-14-2024 Neutrophil, Absolute 4.2 10 3/mcL Normal 2.3-8.1 [facility] Comment on above: Performed By: #### A 1C, CBC, 225317, ADIFF, 394168, BMP, ANEU, GFR ####[place] [address] [place], [place] [address] A1Con 04-14-2024 Glucose [Mass/Vol] 128 mg/dL Normal [facility] Comment on above: Result Comment: Patrick mated Average Glucose calculated by equation ((28.7xA1C)-46.7) Estimated average glucose (eAG) is a calculated value from Hemoglobin A1C and is personal financial representative of the average blood glucose level in the last 2-3 month period. Normal range: less than 114 mg/dL Performed By: #### A 1C, CBC, 757844, ADIFF, 811699, BMP, ANEU, GFR ####[place] [address] [place], [place] [address] HbA1c (Bld) [Mass fraction] 6.1 % Normal 4.3-6.[address] [facility] Comment on above: Performed By: #### A 1C, CBC, 305084, ADIFF, 383223, BMP, ANEU, GFR ####[facility] [place], [place] [address] Ambulatory Clinical Summaryo 04-14-2024 Ambulatory Clinical Summary RAYMON BAH V :1950 Registration Date:04/14/2024 Ambulatory Visit Instructions Discharge Vitals Height 62.99 in (160 cm) Anticoagulation Instructions - Anticoagulation Information INR: 2 INR Range: 2 - 3 Indication for Treatment: Atrial fibrillation Warfarin Dosing Schedule Warfarin New Dose One Tablet Strength - 2 mg tab Week 1 Sun Daily Dose 6 mg 6 mg 6 mg 6 mg 6 mg 6 mg 4 mg # of Tablets 3 tabs 3 tabs 3 tabs 3 tabs 3 tabs 3 tabs 2 tabs Warfarin Patient Instructions - Next home meter INR 04/25 Notify the Coumadin Clinic if you start or change any medication, non-prescription medication, herbal or vitamin supplement. Images on this handout are intended as a visual representation only. Your medication may appear different from the images displayed on this handout. Normal [facility] Anticoagulation Therapy Mgmt - Texton 04-14-2024 Anticoagulation Therapy Mgmt - Text Anticoagulation Therapy Management Entered On: 04/14/2024 7:53 EST Performed On: 04/14/2024 7:52 EST by Tenisha Scott RPh Vital Signs Height/Length Measured : 160 cm(Converted to: 62.99 in) Tenisha Scott RPh - 04/14/2024 7:52 EST Anticoagulation Visit Assessment *INR : 2 Anticoagulant INR Goal Lower : 2 Anticoagulant INR Goal Upper : 3 *Type of Visit : Home Monitor Anticoagulation Indication : Atrial fibrillation Anticoagulant Start : 12/27/2010 EDT Anticoagulant Duration : Undetermined Anticoag Prescribing Provider : ANSHU DAMNO MD Contributing Factors : [employer] home monitor patient, tests every 2 weeks Warfarin Pt Reported Previous Week Dose : Sun Sun Weekly Total Dose Week 1 6 mg 6 mg 6 mg 6 mg 6 mg 6 mg 4 mg 40 mg Week 2 mg mg mg mg mg mg mg mg Week 3 mg mg mg mg mg mg mg mg Week 4 mg mg mg mg mg mg mg mg Single Tab : Yes Anticoagulation Progress Note : INR per [employer] home meter from 04/11 Progress Note : Next home meter INR 04/25 Tenisha Scott RPh - 04/14/2024 7:52 EST Home Health / Home Monitor *Telephone Interaction : No telephone interaction required Tenisha Scott RPh - 04/14/2024 7:52 EST Warfarin Single Tablet One Tab Strength : 2 mg tab Print Dose/Tabs Visit Instructions : Dose and tabs Sunday : 6 mg Sunday : 6 mg Sunday : 6 mg Sunday : 6 mg : 6 mg Sunday : 6 mg Sunday : 4 mg Warfarin Wk 1 Total Dose : 40 mg Sunday : 3 tabs Sunday : 3 tabs Sunday : 3 tabs Sunday : 3 tabs : 3 tabs Sunday : 3 tabs Sunday : 2 tabs Tenisha Scott RPh - 04/14/2024 7:52 EST Normal [facility] BMPon 04-14-2024 BUN/Creatinine Ratio 16 ratio Normal 7-27 [facility] Comment on above: Performed By: #### A 1C, CBC, 486941, ADIFF, 837556, BMP, ANEU, GFR ####[address] [address] Calcium [Mass/Vol] 9.5 mg/dL Normal 8.4-10.2 [facility] Comment on above: Performed By: #### A 1C, CBC, 580246, ADIFF, 490442, BMP, ANEU, GFR ####[address] [address] Chloride [Moles/Vol] 105 mmol/L Normal 98-107 [facility] Comment on above: Performed By: #### A 1C, CBC, 084293, ADIFF, 911918, BMP, ANEU, GFR ####[place] [address] [address] CO2 [Moles/Vol] 31 mmol/L Normal 23-[address] [facility] Comment on above: Performed By: #### A 1C, CBC, 720179, ADIFF, 582318, BMP, ANEU, GFR ####[address] [address] Creatinine [Mass/Vol] 0.86 mg/dL Normal 0.55-1.02 [facility] Comment on above: Result Comment: Test ing performed on Siemens Dimension EXL analyzer using a modified kinetic Dea technique. Performed By: #### A 1C, CBC, 069819, ADIFF, 284946, BMP, ANEU, GFR ####[place] [address] [address] Electrolyte Balance 7.0 mEq/L Normal 4.0-15.0 [facility] Comment on above: Performed By: #### A 1C, CBC, 419062, ADIFF, 298691, BMP, ANEU, GFR ####[place] [address] [address] Glucose [Mass/Vol] 128 mg/dL High 83-110 [facility] Comment on above: Performed By: #### A 1C, CBC, 191647, ADIFF, 524614, BMP, ANEU, GFR ####[place] [address] Potassium [Moles/Vol] 4.1 mmol/L Normal 3.5-5.1 [facility] Comment on above: Performed By: #### A 1C, CBC, 292225, ADIFF, 072547, BMP, ANEU, GFR ####[place] [address] Sodium [Moles/Vol] 143 mmol/L Normal 136-145 [facility] Comment on above: Performed By: #### A 1C, CBC, 921588, ADIFF, 357910, BMP, ANEU, GFR ####[place] [address] Urea nitrogen [Mass/Vol] 14 mg/dL Normal 7-[address] [facility] Comment on above: Performed By: #### A 1C, CBC, 714884, ADIFF, 286697, BMP, ANEU, GFR ####[place] [address] CBCon 04-14-2024 Erythrocyte distribution width (RBC) [Ratio] 14.6 % Normal 11.5-15.[address] [facility] Comment on above: Performed By: #### A 1C, CBC, 789222, ADIFF, 942810, BMP, ANEU, GFR ####[place] [address] Hematocrit (Bld) [Volume fraction] 42.9 % Normal 34.0-46.[address] [facility] Comment on above: Performed By: #### A 1C, CBC, 261394, ADIFF, 260207, BMP, ANEU, GFR ####[place] [address] Hgb 14.2 G/dL Normal 12.0-16.[address] [facility] Comment on above: Performed By: #### A 1C, CBC, 557946, ADIFF, 194596, BMP, ANEU, GFR ####[place] [address] [place], [place] [address] MCH (RBC) [Entitic mass] 30.7 pg Normal 27.0-33.[address] [facility] Comment on above: Performed By: #### A 1C, CBC, 178469, ADIFF, 247564, BMP, ANEU, GFR ####[place] [address] [place], [place] [address] MCHC 33.1 G/dL Normal 32.0-36.[address] [facility] Comment on above: Performed By: #### A 1C, CBC, 683400, ADIFF, 562945, BMP, ANEU, GFR ####[place] [address] [place], [place] [address] MCV (RBC) [Entitic vol] 92.6 fL Normal 80.0-99.[address] [facility] Comment on above: Performed By: #### A 1C, CBC, 111588, ADIFF, 717413, BMP, ANEU, GFR ####[place] [address] [place], [place] [address] Platelet 213 10 3/mcL Normal 150-[address] [facility] Comment on above: Performed By: #### A 1C, CBC, 862749, ADIFF, 648896, BMP, ANEU, GFR ####[facility] [place], [place] [address] Platelet mean volume (Bld) [Entitic vol] 8.3 fL Normal 6.6-10.[address] [facility] Comment on above: Performed By: #### A 1C, CBC, 841130, ADIFF, 020875, BMP, ANEU, GFR ####[facility] [place], [place] [address] RBC 4.63 10 6/mcL Normal 4.10-5.[address] [facility] Comment on above: Performed By: #### A 1C, CBC, 958157, ADIFF, 915546, BMP, ANEU, GFR ####[facility] [place], [place] [address] WBC 6.3 10 3/mcL Normal 4.5-10.[address] [facility] Comment on above: Performed By: #### A 1C, CBC, 915531, ADIFF, 128085, BMP, ANEU, GFR ####[place] [address] [place], [place] [address] Coumadin Pharmacist Noteon 1 06-15-2023 Coumadin Pharmacist Note RAYMON BAH V :1950 Registration Date:04/14/2024 Vitals & Measurements No Vital Signs available for this visit. Visit Information Anticoag Indication - Atrial fibrillation Anticoag Start - 12/27/2010 Referring Physician - ANSHU DAMON MD Anticoag Prescribing Provider: ANSHU DAMON MD Anticoag INR Goal Lower: 2 Anticoag INR Goal Upper: 3 Contributing Factors 04/14/24 07:52:00 [employer] home monitor patient, tests every 2 weeks Signed By: Tenisha Scott RPh Warfarin Tab Strength Warfarin New Dose One Tablet Strength: 2 mg tab (04/14/24 07:52:00) INR Level Event Name Event Result INR Level POC 2 Visit Assessment Anticoagulation Progress Note 04/14/24 07:52:00 INR per [employer] home meter from 04/11 Signed By: Tenisha Scott RPh Dosing Information & Patient Instructions Total Sun Sun Week 1 40 mg 6 mg 6 mg 6 mg 6 mg 6 mg 6 mg 4 mg Week 2 None None None None None None None Week 3 None None None None None None None Week 4 None None None None None None None Warfarin Patient InstructionsNext home meter INR 04/25 Normal [facility] Woody 04-14-2024 Fasting Y Yes Normal [facility] Comment on above: Performed By: #### A 1C, CBC, 993550, ADIFF, 092365, BMP, ANEU, GFR ####[place] [address] [place], [place] [address] LABORATORYOrdered By: SYSTEM SYSTEM on 04-14-2024 Basophils (Bld) [#/Vol] 0.0 103/mcL Normal 0.0 - 0.2 10^3/mcL AO Workflow SS Basophils/100 WBC (Bld) 0.4 % Normal 0.0 - 2.5 % AO Workflow SS Calcium [Mass/Vol] 9.5 mg/dL Normal 8.4 - 10. 2 mg/dL AO ADM SS Chloride [Moles/Vol] 105 mmol/L Normal 98 - 10 7 mmol/L AO ADM SS CO2 [Moles/Vol] 31 mmol/L Normal 23 - 31 mmol/L AO ADM SS Creatinine [Mass/Vol] 0.86 mg/dL Normal 0.55 - 1.02 mg/dL AO ADM SS Comment on above: Interpretive Data: T esting performed on Siemens Dimension EXL analyzer using a modified kinetic Dea technique. Electrolyte Balance 7.0 mEq/L Normal 4.0 - 15 .0 mEq/L AO ADM SS Eosinophil, Absolute 0.1 103/mcL Normal 0.0 - 0 .7 10^3/mcL AO Workflow SS Eosinophils/100 WBC (Bld) 1.0 % Normal 0.0 - 7.0 % AO Workflow SS Erythrocyte distribution width (RBC) [Ratio] 14.6 % Normal 11.5 - 15.5 % AO Workflow SS GFR/1.73 sq M.predicted among blacks MDRD (S/P/Bld) [Vol rate/Area] 78 ml/min/1.73sqm Invalid Interpretation Code AO Chemistry S Comment on above: Interpretive Data: GFR Population mean for , Non- Americans Ages 20-29 = 116 mL/min/1.73 sq.m. Ages 30-39 = 107 mL/min/1.73 sq.m. Ages 40-49 = 99 mL/min/1.73 sq.m. Ages 50-59 = 93 mL/min/1.73 sq.m. Ages 60-69 = 85 mL/min/1.73 sq.m. Ages 70+ = 75 mL/min/1.73 sq.m. Chronic Kidney Disease: Less than 60 mL/min/1.73 square meters End Stage Renal Disease: Less than 15 mL/min/1.73 square meters GFR/1.73 sq M.predicted among non-blacks MDRD (S/P/Bld) [Vol rate/Area] 64 ml/min/1.73sqm Invalid Interpretation Code AO Chemistry S Comment on above: Interpretive Data: GFR Population mean for , Non- Americans Ages 20-29 = 116 mL/min/1.73 sq.m. Ages 30-39 = 107 mL/min/1.73 sq.m. Ages 40-49 = 99 mL/min/1.73 sq.m. Ages 50-59 = 93 mL/min/1.73 sq.m. Ages 60-69 = 85 mL/min/1.73 sq.m. Ages 70+ = 75 mL/min/1.73 sq.m. Chronic Kidney Disease: Less than 60 mL/min/1.73 square meters End Stage Renal Disease: Less than 15 mL/min/1.73 square meters HbA1c (Bld) [Mass fraction] 6.1 % Normal 4.3 - 6.4 % AO ADM SS Hematocrit (Bld) [Volume fraction] 42.9 % Normal 34.0 - 46.0 % AO Workflow SS Hemoglobin (Bld) [Mass/Vol] 14.2 G/dL Normal 12.0 - 16.0 G/dL AO Workflow SS Lymphocytes (Bld) [#/Vol] 1.5 103/mcL Normal 0.9 - 4.3 10^3/mcL AO Workflow SS Lymphocytes/100 WBC (Bld) 23.2 % Normal 20.0 - 40.0 % AO Workflow SS MCH (RBC) [Entitic mass] 30.7 pg Normal 27.0 - 33.0 pg AO Workflow SS MCHC 33.1 G/dL Normal 32.0 - 36.0 G/dL AO Workflow SS MCV (RBC) [Entitic vol] 92.6 fL Normal 80.0 - 99.0 fL AO Workflow SS Monocytes (Bld) [#/Vol] 0.6 103/mcL Normal 0.1 - 1.4 10^3/mcL AO Workflow SS Monocytes/100 WBC (Bld) 9.1 % Normal 2.0 - 13.0 % AO Workflow SS Neutrophils (Bld) [#/Vol] 4.2 103/mcL Normal 2.3 - 8.1 10^3/mcL AO Workflow SS Neutrophils/100 WBC (Bld) 66.3 % Normal 50.0 - 75.0 % AO Workflow SS Platelet mean volume (Bld) [Entitic vol] 8.3 fL Normal 6.6 - 10.5 fL AO Workflow SS Platelets (Bld) [#/Vol] 213 103/mcL Normal 150 - 450 10^3/mcL AO Workflow SS Potassium [Moles/Vol] 4.1 mmol/L Normal 3.5 - 5.1 mmol/L AO ADM SS RBC (Bld) [#/Vol] 4.63 106/mcL Normal 4.10 - 5.3 0 10^6/mcL AO Workflow SS Sodium [Moles/Vol] 143 mmol/L Normal 136 - 145 mmol/L AO ADM SS Urea nitrogen [Mass/Vol] 14 mg/dL Normal 7 - 18 mg/dL AO ADM SS Urea nitrogen/Creatinine [Mass ratio] 16 ratio Normal 7 - 27 ratio AO ADM SS WBC (Bld) [#/Vol] 6.3 103/mcL Normal 4.5 - 10.8 10^3/mcL AO Workflow SS LABORATORYOrdered By: Eric Braswell on 04-14-2024 Fasting (LC) Y Yes (04/14/24 11:07 AM) Normal AO Sendouts SS Laboratory - Chemistry and C hemistry - challengeOrdered By: SYSTEM SYSTEM on 04-14-2024 Glucose [Mass/Vol] 128 mg/dL Invalid Interpretation Code AO ADM SS Comment on above: Interpretive Data: E stimated average glucose (eAG) is a calculated value from Hemoglobin A1C and is personal financial representative of the average blood glucose level in the last 2-3 month period. Normal range: less than 114 mg/dL Ambulatory Clinical Summaryo n 03-28-2024 Ambulatory Clinical Summary RAYMON BAH V :1950 Registration Date:03/28/2024 Ambulatory Visit Instructions Discharge Vitals Height 62.99 in (160 cm) Anticoagulation Instructions - Anticoagulation Information INR: 2.0 INR Range: 2 - 3 Indication for Treatment: Atrial fibrillation Warfarin Dosing Schedule Warfarin New Dose One Tablet Strength - 2 mg tab Week 1 Sun Sun Daily Dose 6 mg 6 mg 6 mg 6 mg 6 mg 6 mg 4 mg # of Tablets 3 tabs 3 tabs 3 tabs 3 tabs 3 tabs 3 tabs 2 tabs Warfarin Patient Instructions - Next home monitor INR: 04/04/24 Notify the Coumadin Clinic if you start or change any medication, non-prescription medication, herbal or vitamin supplement. Images on this handout are intended as a visual representation only. Your medication may appear different from the images displayed on this handout. Normal [facility] Anticoagulation Therapy Mgmt - Texton 03-28-2024 Anticoagulation Therapy Mgmt - Text Anticoagulation Therapy Management Entered On: 03/28/2024 9:44 EST Performed On: 03/28/2024 9:43 EST by Casandra Tobin RPh Vital Signs Height/Length Measured : 160 cm(Converted to: 62.99 in) Casandra Tobin RPh - 03/28/2024 9:43 EST Anticoagulation Visit Assessment *INR : 2.0 Anticoagulant INR Goal Lower : 2 Anticoagulant INR Goal Upper : 3 *Type of Visit : Home Monitor Anticoagulation Indication : Atrial fibrillation Anticoagulant Start : 12/27/2010 EDT Anticoagulant Duration : Undetermined Anticoag Prescribing Provider : AMY SHANKAR, ANSHU Contributing Factors : [employer] home monitor patient, tests every 2 weeks Warfarin Pt Reported Previous Week Dose : Sun Sun Weekly Total Dose Week 1 6 mg 6 mg 6 mg 6 mg 6 mg 6 mg 4 mg 40 mg Week 2 mg mg mg mg mg mg mg mg Week 3 mg mg mg mg mg mg mg mg Week 4 mg mg mg mg mg mg mg mg Single Tab : Yes Anticoagulation Progress Note : INR 2 per [employer] home meter Follow up in 1 week Progress Note : Next home monitor INR: 04/04/24 Casandra Tobin RPh - 03/28/2024 9:43 EST Home Health / Home Monitor *Telephone Interaction : No telephone interaction required Casandra Tobni RPh - 03/28/2024 9:43 EST Warfarin Single Tablet One Tab Strength : 2 mg tab Sunday : 6 mg Sunday : 6 mg Sunday : 6 mg Sunday : 6 mg : 6 mg Sunday : 6 mg Sunday : 4 mg Warfarin Wk 1 Total Dose : 40 mg Sunday : 3 tabs Sunday : 3 tabs Sunday : 3 tabs Sunday : 3 tabs : 3 tabs Sunday : 3 tabs Sunday : 2 tabs Casandra Tobin RPh - 03/28/2024 9:43 EST [facility] Coumadin Pharmacist Noteon 1 05-28-2023 Coumadin Pharmacist Note RAYMON BAH V :1950 Registration Date:03/28/2024 Vitals & Measurements No Vital Signs available for this visit. Visit Information Anticoag Indication - Atrial fibrillation Anticoag Start - 12/27/2010 Referring Physician - ANSHU DAMON MD Anticoag Prescribing Provider: ANSHU DAMON MD Anticoag INR Goal Lower: 2 Anticoag INR Goal Upper: 3 Contributing Factors 03/28/24 09:43:00 [employer] home monitor patient, tests every 2 weeks Signed By: Casandra Tobin RPh Warfarin Tab Strength Warfarin New Dose One Tablet Strength: 2 mg tab (03/28/24 09:43:00) INR Level Event Name Event Result INR Level POC 2 Visit Assessment Anticoagulation Progress Note 03/28/24 09:43:00 INR 2 per [employer] home meter Follow up in 1 week Signed By: Casandra Tobin RPh Dosing Information & Patient Instructions Total Sun Sun Sat Week 1 40 mg 6 mg 6 mg 6 mg 6 mg 6 mg 6 mg 4 mg Week 2 None None None None None None None Week 3 None None None None None None None Week 4 None None None None None None None Warfarin Patient InstructionsNext home monitor INR: 04/04/24 Normal [facility] Ambulatory Clinical Summaryo n 03-20-2024 Ambulatory Clinical Summary RAYMON BAH Chrissie :1950 Registration Date:03/20/2024 Ambulatory Visit Instructions Discharge Vitals Height 62.99 in (160 cm) Anticoagulation Instructions - Anticoagulation Information INR: 2 INR Range: 2 - 3 Indication for Treatment: Atrial fibrillation Warfarin Dosing Schedule Warfarin New Dose One Tablet Strength - 2 mg tab Week 1 Sun Sun Sat Daily Dose 6 mg 6 mg 6 mg 6 mg 6 mg 6 mg 4 mg # of Tablets 3 tabs 3 tabs 3 tabs 3 tabs 3 tabs 3 tabs 2 tabs Warfarin Patient Instructions - Next home INR 03/27 Notify the Coumadin Clinic if you start or change any medication, non-prescription medication, herbal or vitamin supplement. Images on this handout are intended as a visual representation only. Your medication may appear different from the images displayed on this handout. Normal [facility] Anticoagulation Therapy Mgmt - Texton 03-20-2024 Anticoagulation Therapy Mgmt - Text Anticoagulation Therapy Management Entered On: 03/20/2024 9:22 EST Performed On: 03/20/2024 9:17 EST by Luciana Colindres RPh Vital Signs Height/Length Measured : 160 cm(Converted to: 62.99 in) Luciana Colindres RPh - 03/20/2024 9:17 EST Anticoagulation Visit Assessment *INR : 2 Anticoagulant INR Goal Lower : 2 Anticoagulant INR Goal Upper : 3 *Type of Visit : Home Monitor Anticoagulation Indication : Atrial fibrillation Anticoagulant Start : 12/27/2010 EDT Anticoagulant Duration : Undetermined Anticoag Prescribing Provider : AMY SHANKAR, ANSHU Contributing Factors : [employer] home monitor patient, tests every 2 weeks Warfarin Pt Reported Previous Week Dose : Sun Sun Weekly Total Dose Week 1 6 mg 6 mg 6 mg 6 mg 6 mg 6 mg 4 mg 40 mg Week 2 mg mg mg mg mg mg mg mg Week 3 mg mg mg mg mg mg mg mg Week 4 mg mg mg mg mg mg mg mg Single Tab : Yes Anticoagulation Progress Note : INR 2 today per [employer]. Called and spoke with patient -No b/bx -Eating a little more the last week, slightly less green vegetables/salads -Started taking vitamin B12. No other medication changes -Confirmed dose and boost from last week. No missed doses Reviewed dosing with patient -- 2 tabs on Sunday and 3 tabs AOD. Continue this dosing for now since in range today but on low-end. Will test again in 1 week to reassess 40mg/wk dosing. Progress Note : Next home INR 03/27 Luciana Colindres RPh - 03/20/2024 9:17 EST Home Health / Home Monitor *Telephone Interaction : No telephone interaction required Luciana Colindres RPh - 03/20/2024 9:17 EST Warfarin Single Tablet One Tab Strength : 2 mg tab Print Dose/Tabs Visit Instructions : Dose and tabs Sunday : 6 mg Sunday : 6 mg Sunday : 6 mg Sunday : 6 mg : 6 mg Sunday : 6 mg Sunday : 4 mg Warfarin Wk 1 Total Dose : 40 mg Sunday : 3 tabs Sunday : 3 tabs Sunday : 3 tabs Sunday : 3 tabs : 3 tabs Sunday : 3 tabs Sunday : 2 tabs Luciana Colindres RPh - 03/20/2024 9:17 EST Normal [facility] Coumadin Pharmacist Noteon 1 05-20-2023 Coumadin Pharmacist Note RAYMON BAH V :1950 Registration Date:03/20/2024 Vitals & Measurements No Vital Signs available for this visit. Visit Information Anticoag Indication - Atrial fibrillation Anticoag Start - 12/27/2010 Referring Physician - ANSHU DAMON MD Anticoag Prescribing Provider: ANSHU DAMON MD Anticoag INR Goal Lower: 2 Anticoag INR Goal Upper: 3 Contributing Factors 03/20/24 09:17:00 [employer] home monitor patient, tests every 2 weeks Signed By: Luciana Colindres RPh Warfarin Tab Strength Warfarin New Dose One Tablet Strength: 2 mg tab (03/20/24 09:17:00) INR Level Event Name Event Result INR Level POC 2 Visit Assessment Anticoagulation Progress Note 03/20/24 09:17:00 INR 2 today per [employer]. Called and spoke with patient -No b/bx -Eating a little more the last week, slightly less green vegetables/salads -Started taking vitamin B12. No other medication changes -Confirmed dose and boost from last week. No missed doses Reviewed dosing with patient -- 2 tabs on Sunday and 3 tabs AOD. Continue this dosing for now since in range today but on low-end. Will test again in 1 week to reassess 40mg/wk dosing. Signed By: Luciana Colindres RPh Dosing Information & Patient Instructions Total Sun Sun Week 1 40 mg 6 mg 6 mg 6 mg 6 mg 6 mg 6 mg 4 mg Week 2 None None None None None None None Week 3 None None None None None None None Week 4 None None None None None None None Warfarin Patient InstructionsNext home INR 03/27 Normal [facility] LABORATORYOrdered By: SYSTEM SYSTEM on 03-04-2024 Cobalamin (Vitamin B12) [Mass/Vol] 203 pg/mL Low 211 - 911 pg/mL ADM SS Folate [Mass/Vol] 11.84 ng/mL Normal 5.38 - 24.00 ng/mL ADM SS LABORATORYOrdered By: Juliana Blair on 03-04-2024 Protein [Mass/Vol] 7.0 G/dL Normal 5.7 - 8.2 G/dL ADM SS Comment on above: Interpretive Data: * *Note - New Reference Range in effect 19 .GFRon 01-10-2024 GFR 75 ml/min/1.73sqm Normal [facility] ([place]) Comment on above: Result Comment: GFR Population mean for , Non- Americans Ages 20-29 = 116 mL/min/1.73 sq.m. Ages 30-39 = 107 mL/min/1.73 sq.m. Ages 40-49 = 99 mL/min/1.73 sq.m. Ages 50-59 = 93 mL/min/1.73 sq.m. Ages 60-69 = 85 mL/min/1.73 sq.m. Ages 70+ = 75 mL/min/1.73 sq.m. Chronic Kidney Disease: Less than 60 mL/min/1.73 square meters End Stage Renal Disease: Less than 15 mL/min/1.73 square meters Performed By: #### C MP, GFR #### [place] [id number] [place] [address] #### CPEP, INSLN #### [address] [address] GFR Non- 62 ml/min/1.73sqm Normal [facility] ([place]) Comment on above: Result Comment: GFR Population mean for , Non- Americans Ages 20-29 = 116 mL/min/1.73 sq.m. Ages 30-39 = 107 mL/min/1.73 sq.m. Ages 40-49 = 99 mL/min/1.73 sq.m. Ages 50-59 = 93 mL/min/1.73 sq.m. Ages 60-69 = 85 mL/min/1.73 sq.m. Ages 70+ = 75 mL/min/1.73 sq.m. Chronic Kidney Disease: Less than 60 mL/min/1.73 square meters End Stage Renal Disease: Less than 15 mL/min/1.73 square meters Performed By: #### C MP, GFR #### [address] [address] #### CPEP, INSLN #### [address] [address] A1Con 01-10-2024 Glucose [Mass/Vol] 157 mg/dL Normal [facility] ([place]) Comment on above: Result Comment: Patrick mated Average Glucose calculated by equation ((28.7xA1C)-46.7) Estimated average glucose (eAG) is a calculated value from Hemoglobin A1C and is personal financial representative of the average blood glucose level in the last 2-3 month period. Normal range: less than 114 mg/dL Performed By: #### L IPID, A1C, TSH, VIDH, CMP, GFR #### [address] [address] HbA1c (Bld) [Mass fraction] 7.1 % High 4.3-6.4 [facility] ([place]) Comment on above: Performed By: #### L IPID, A1C, TSH, VIDH, CMP, GFR #### [address] [address] CMPon 01-10-2024 Albumin Level 3.8 G/dL Normal 3.4-4.8 [facility] ([place]) Comment on above: Performed By: #### L IPID, A1C, TSH, VIDH, CMP, GFR #### [address] [address] Albumin/Globulin [Mass ratio] 1.2 {ratio} Normal 1.1-2.5 [facility] ([place]) Comment on above: Performed By: #### L IPID, A1C, TSH, VIDH, CMP, GFR #### [address] [address] ALP [Catalytic activity/Vol] 75 U/L Normal 40-135 [facility] ([place]) Comment on above: Performed By: #### L IPID, A1C, TSH, VIDH, CMP, GFR #### [address] [address] ALT [Catalytic activity/Vol] 35 U/L Normal 14-59 [facility] ([place]) Comment on above: Performed By: #### L IPID, A1C, TSH, VIDH, CMP, GFR #### [address] [address] AST [Catalytic activity/Vol] 38 U/L Normal 10-40 [facility] ([place]) Comment on above: Performed By: #### L IPID, A1C, TSH, VIDH, CMP, GFR #### [address] [address] Bili Total 0.6 mg/dL Normal 0.2-1.0 [facility] ([place]) Comment on above: Result Comment: Use of this assay is not recommended for patients undergoing treatment with eltrombopag due to the potential for falsely elevated results. Performed By: #### L IPID, A1C, TSH, VIDH, CMP, GFR #### [address] [address] BUN/Creatinine Ratio 15 ratio Normal 7-27 [facility] ([place]) Comment on above: Performed By: #### L IPID, A1C, TSH, VIDH, CMP, GFR #### [address] [address] Calcium [Mass/Vol] 9.3 mg/dL Normal 8.4-10.2 [facility] ([place]) Comment on above: Performed By: #### L IPID, A1C, TSH, VIDH, CMP, GFR #### [address] [address] Chloride [Moles/Vol] 104 mmol/L Normal 98-107 [facility] ([place]) Comment on above: Performed By: #### L IPID, A1C, TSH, VIDH, CMP, GFR #### [place] [address] CO2 [Moles/Vol] 28 mmol/L Normal 23-31 [facility] ([place]) Comment on above: Performed By: #### L IPID, A1C, TSH, VIDH, CMP, GFR #### [place] [address] Creatinine [Mass/Vol] 0.89 mg/dL Normal 0.55-1.02 [facility] ([place]) Comment on above: Result Comment: Test ing performed on [employer] Dimension EXL analyzer using a modified kinetic Dea technique. Performed By: #### L IPID, A1C, TSH, VIDH, CMP, GFR #### [address] [address] Electrolyte Balance 9.0 mEq/L Normal 4.0-15.0 [facility] ([place]) Comment on above: Performed By: #### L IPID, A1C, TSH, VIDH, CMP, GFR #### [address] [address] Globulin 3.2 G/dL Normal [facility] ([place]) Comment on above: Performed By: #### L IPID, A1C, TSH, VIDH, CMP, GFR #### [address] [address] Glucose [Mass/Vol] 127 mg/dL High 83-110 [facility] ([place]) Comment on above: Performed By: #### L IPID, A1C, TSH, VIDH, CMP, GFR #### [place] [address] Potassium [Moles/Vol] 4.2 mmol/L Normal 3.5-5.1 [facility] ([place]) Comment on above: Performed By: #### L IPID, A1C, TSH, VIDH, CMP, GFR #### [place] [id number] [place], [place] [address] Sodium [Moles/Vol] 141 mmol/L Normal 136-145 [facility] ([place]) Comment on above: Performed By: #### L IPID, A1C, TSH, VIDH, CMP, GFR #### [address] [address] Total Protein 7.0 G/dL Normal 6.4-8.2 [facility] ([place]) Comment on above: Performed By: #### L IPID, A1C, TSH, VIDH, CMP, GFR #### [address] [address] Urea nitrogen [Mass/Vol] 13 mg/dL Normal 7-18 [facility] ([place]) Comment on above: Performed By: #### L IPID, A1C, TSH, VIDH, CMP, GFR #### [address] [address] LABORATORYOrdered By: Emiliana Glass on 01-10-2024 Albumin DL <= 20 mg/L (U) [Mass/Vol] 4354 mcg/dL Invalid Interpretation Code AO ADM SS Albumin/Creatinine DL <= 20 mg/L (U) [Mass ratio] 24 mcg/mg Normal 0 - 30 mcg/mg AO ADM SS Creatinine (U) [Mass/Vol] 180.8 mg/dL High 28.0 - 117.0 mg/dL AO ADM SS Cholesterol [Mass/Vol] 166 mg/dL Normal 0 - 2 00 mg/dL AO ADM SS Comment on above: Interpretive Data: C holesterol Reference Interval: Less than 200 Desirable 200-239 Borderline high risk 240 and above High risk Cholesterol in HDL [Mass/Vol] 64 mg/dL High 40 - 60 mg/dL AO ADM SS Cholesterol in LDL [Mass/Vol] 78 mg/dL Normal 0 - 130 mg/dL AO ADM SS Triglyceride [Mass/Vol] 118 mg/dL Normal 0 - 150 mg/dL AO ADM SS Comment on above: Interpretive Data: T riglyceride Reference Interval: Less than 150 Normal 150-199 Borderline high risk 200-499 High risk 500 or higher Very high risk LABORATORYOrdered By: SYSTEM SYSTEM on 01-10-2024 25-hydroxyvitamin D3 [Mass/Vol] 64.4 ng/mL Invalid Interpretation Code AO ADM SS Comment on above: Interpretive Data: I nterpretive Values Based on Total 25(OH) Vitamin D: Deficient <20 ng/mL Insufficient 20 - <30 ng/mL Sufficient 30-100 ng/mL Albumin BCP dye [Mass/Vol] 3.8 G/dL Normal 3.4 - 4.8 G/dL AO ADM SS Albumin/Globulin [Mass ratio] 1.2 {ratio} Normal 1.1 - 2.5 ratio AO ADM SS ALP [Catalytic activity/Vol] 75 U/L Normal 40 - 135 U/L AO ADM SS ALT With P-5'-P [Catalytic activity/Vol] 35 U/L Normal 14 - 59 U/L AO ADM SS AST With P-5'-P [Catalytic activity/Vol] 38 U/L Normal 10 - 40 U/L AO ADM SS Bilirubin [Mass/Vol] 0.6 mg/dL Normal 0.2 - 1 .0 mg/dL AO ADM SS Comment on above: Interpretive Data: U se of this assay is not recommended for patients undergoing treatment with eltrombopag due to the potential for falsely elevated results. Calcium [Mass/Vol] 9.3 mg/dL Normal 8.4 - 10. 2 mg/dL AO ADM SS Chloride [Moles/Vol] 104 mmol/L Normal 98 - 10 7 mmol/L AO ADM SS CO2 [Moles/Vol] 28 mmol/L Normal 23 - 31 mmol/L AO ADM SS Creatinine [Mass/Vol] 0.89 mg/dL Normal 0.55 - 1.02 mg/dL AO ADM SS Comment on above: Interpretive Data: T esting performed on Siemens Dimension EXL analyzer using a modified kinetic Dea technique. Electrolyte Balance 9.0 mEq/L Normal 4.0 - 15 .0 mEq/L AO ADM SS GFR/1.73 sq M.predicted among blacks MDRD (S/P/Bld) [Vol rate/Area] 75 ml/min/1.73sqm Invalid Interpretation Code AO Chemistry S Comment on above: Interpretive Data: GFR Population mean for , Non- Americans Ages 20-29 = 116 mL/min/1.73 sq.m. Ages 30-39 = 107 mL/min/1.73 sq.m. Ages 40-49 = 99 mL/min/1.73 sq.m. Ages 50-59 = 93 mL/min/1.73 sq.m. Ages 60-69 = 85 mL/min/1.73 sq.m. Ages 70+ = 75 mL/min/1.73 sq.m. Chronic Kidney Disease: Less than 60 mL/min/1.73 square meters End Stage Renal Disease: Less than 15 mL/min/1.73 square meters GFR/1.73 sq M.predicted among non-blacks MDRD (S/P/Bld) [Vol rate/Area] 62 ml/min/1.73sqm Invalid Interpretation Code AO Chemistry S Comment on above: Interpretive Data: GFR Population mean for , Non- Americans Ages 20-29 = 116 mL/min/1.73 sq.m. Ages 30-39 = 107 mL/min/1.73 sq.m. Ages 40-49 = 99 mL/min/1.73 sq.m. Ages 50-59 = 93 mL/min/1.73 sq.m. Ages 60-69 = 85 mL/min/1.73 sq.m. Ages 70+ = 75 mL/min/1.73 sq.m. Chronic Kidney Disease: Less than 60 mL/min/1.73 square meters End Stage Renal Disease: Less than 15 mL/min/1.73 square meters Globulin 3.2 G/dL Invalid Interpretation Code AO ADM SS Glucose [Mass/Vol] 157 mg/dL Invalid Interpretation Code AO Chemistry S Comment on above: Interpretive Data: E stimated average glucose (eAG) is a calculated value from Hemoglobin A1C and is personal financial representative of the average blood glucose level in the last 2-3 month period. Normal range: less than 114 mg/dL Glucose [Mass/Vol] 127 mg/dL High 83 - 110 mg/dL AO ADM SS HbA1c (Bld) [Mass fraction] 7.1 % High 4.3 - 6.4 % AO ADM SS Potassium [Moles/Vol] 4.2 mmol/L Normal 3.5 - 5.1 mmol/L AO ADM SS Protein [Mass/Vol] 7.0 G/dL Normal 6.4 - 8.2 G/dL AO ADM SS Sodium [Moles/Vol] 141 mmol/L Normal 136 - 145 mmol/L AO ADM SS TSH Qn 2.50 m[IU]/L Normal 0.36 - 3.74 mcIU/mL AO ADM SS Urea nitrogen [Mass/Vol] 13 mg/dL Normal 7 - 18 mg/dL AO ADM SS Urea nitrogen/Creatinine [Mass ratio] 15 ratio Normal 7 - 27 ratio AO ADM SS LIPIDon 01-10-2024 Cholesterol [Mass/Vol] 166 mg/dL Normal 0-200 [facility] ([place]) Comment on above: Result Comment: Chol esterol Reference Interval: Less than 200 Desirable 200-239 Borderline high risk 240 and above High risk Performed By: #### C MP, GFR #### [place] [address] #### CPEP, INSLN #### [address] [address] Cholesterol in HDL [Mass/Vol] 64 mg/dL High 40-60 [facility] ([place]) Comment on above: Performed By: #### C MP, GFR #### [place] [address] #### CPEP, INSLN #### [address] [address] Cholesterol in LDL [Mass/Vol] 78 mg/dL Normal 0-130 [facility] ([place]) Comment on above: Performed By: #### C MP, GFR #### [place] [address] #### CPEP, INSLN #### [address] [address] Triglyceride [Mass/Vol] 118 mg/dL Normal 0-150 [facility] ([place]) Comment on above: Result Comment: Trig lyceride Reference Interval: Less than 150 Normal 150-199 Borderline high risk 200-499 High risk 500 or higher Very high risk Performed By: #### C MP, GFR #### [place] [address] #### CPEP, INSLN #### [facility] [address] [place] [address] MALBRon 01-10-2024 U Creatinine 180.8 mg/dL High 28.0-117.0 [facility] ([place]) Comment on above: Performed By: #### L IPID, A1C, TSH, VIDH, CMP, GFR #### [address] [address] U Microalb 4354 mcg/dL Normal [facility] ([place]) Comment on above: Performed By: #### L IPID, A1C, TSH, VIDH, CMP, GFR #### [address] [address] U Ratio Alb/Cre 24 mcg/mg Normal 0-30 [facility] ([place]) Comment on above: Performed By: #### L IPID, A1C, TSH, VIDH, CMP, GFR #### [address] [address] TSHon 01-10-2024 TSH Qn 2.50 m[IU]/L Normal 0.36-3.74 [facility] ([place]) Comment on above: Performed By: #### L IPID, A1C, TSH, VIDH, CMP, GFR #### [address] [address] VIDHon 01-10-2024 Vit. D 25-Hydroxy 64.4 ng/mL Normal [facility] ([place]) Comment on above: Result Comment: Inte rpretive Values Based on Total 25(OH) Vitamin D: Deficient <20 ng/mL Insufficient 20 - <30 ng/mL Sufficient 30-100 ng/mL Performed By: #### L IPID, A1C, TSH, VIDH, CMP, GFR #### [address] [address] LEVOFLOXACIN:SUSC:PT:ISOLATE :ORDQN:MICon 01-02-2024 levoFLOXacin BONNIE [Susc] 50,000 - 100,000 cfu/ml Escherichia coli [facility] Work Phone: levoFLOXacin BONNIE [Susc]on Escherichia coli Escherichia coli [facility] Work Phone: .GFRon 12-06-2023 GFR 64 ml/min/1.73sqm Normal [facility] ([place]) Comment on above: Result Comment: GFR Population mean for , Non- Americans Ages 20-29 = 116 mL/min/1.73 sq.m. Ages 30-39 = 107 mL/min/1.73 sq.m. Ages 40-49 = 99 mL/min/1.73 sq.m. Ages 50-59 = 93 mL/min/1.73 sq.m. Ages 60-69 = 85 mL/min/1.73 sq.m. Ages 70+ = 75 mL/min/1.73 sq.m. Chronic Kidney Disease: Less than 60 mL/min/1.73 square meters End Stage Renal Disease: Less than 15 mL/min/1.73 square meters Performed By: #### C MP, GFR #### [address] [address] #### CPEP, INSLN #### [address] [address] GFR Non- 53 ml/min/1.73sqm Normal [facility] ([place]) Comment on above: Result Comment: GFR Population mean for , Non- Americans Ages 20-29 = 116 mL/min/1.73 sq.m. Ages 30-39 = 107 mL/min/1.73 sq.m. Ages 40-49 = 99 mL/min/1.73 sq.m. Ages 50-59 = 93 mL/min/1.73 sq.m. Ages 60-69 = 85 mL/min/1.73 sq.m. Ages 70+ = 75 mL/min/1.73 sq.m. Chronic Kidney Disease: Less than 60 mL/min/1.73 square meters End Stage Renal Disease: Less than 15 mL/min/1.73 square meters Performed By: #### C MP, GFR #### [address] [address] #### CPEP, INSLN #### [address] [address] [facility] Albumin Level 4.0 G/dL Normal 3.4-4.8 [facility] ([place]) Comment on above: Performed By: #### C MP, GFR #### [address] [address] #### CPEP, INSLN #### [address] [address] Albumin/Globulin [Mass ratio] 1.2 {ratio} Normal 1.1-2.5 [facility] ([place]) Comment on above: Performed By: #### C MP, GFR #### [place] [address] #### CPEP, INSLN #### [address] [address] ALP [Catalytic activity/Vol] 74 U/L Normal 40-135 [facility] ([place]) Comment on above: Performed By: #### C MP, GFR #### [place] [address] #### CPEP, INSLN #### [address] [address] ALT [Catalytic activity/Vol] 40 U/L Normal 14-59 [facility] ([place]) Comment on above: Performed By: #### C MP, GFR #### [address] [address] #### CPEP, INSLN #### [address] [address] AST [Catalytic activity/Vol] 26 U/L Normal 10-40 [facility] ([place]) Comment on above: Performed By: #### C MP, GFR #### [place] [address] #### CPEP, INSLN #### [address] [address] Bili Total 0.5 mg/dL Normal 0.2-1.0 [facility] ([place]) Comment on above: Result Comment: Use of this assay is not recommended for patients undergoing treatment with eltrombopag due to the potential for falsely elevated results. Performed By: #### C MP, GFR #### [place] [address] #### CPEP, INSLN #### [address] [address] BUN/Creatinine Ratio 19 ratio Normal 7-27 [facility] ([place]) Comment on above: Performed By: #### C MP, GFR #### [place] [address] #### CPEP, INSLN #### [address] [address] Calcium [Mass/Vol] 9.6 mg/dL Normal 8.4-10.2 [facility] ([place]) Comment on above: Performed By: #### C MP, GFR #### [place] [address] #### CPEP, INSLN #### [address] [address] Chloride [Moles/Vol] 101 mmol/L Normal 98-107 [facility] ([place]) Comment on above: Performed By: #### C MP, GFR #### [place] [address] #### CPEP, INSLN #### [address] [address] CO2 [Moles/Vol] 24 mmol/L Normal 23-31 [facility] ([place]) Comment on above: Performed By: #### C MP, GFR #### [place] [address] #### CPEP, INSLN #### [address] [address] Creatinine [Mass/Vol] 1.02 mg/dL Normal 0.55-1.02 [facility] ([place]) Comment on above: Performed By: #### C MP, GFR #### [place] [address] #### CPEP, INSLN #### [address] [address] Electrolyte Balance 12.0 mEq/L Normal 4.0-15.0 [facility] ([place]) Comment on above: Performed By: #### C MP, GFR #### [address] [address] #### CPEP, INSLN #### [address] [address] Globulin 3.4 G/dL Normal [facility] ([place]) Comment on above: Performed By: #### C MP, GFR #### [address] [address] #### CPEP, INSLN #### [address] [address] Glucose [Mass/Vol] 185 mg/dL High 83-110 [facility] ([place]) Comment on above: Performed By: #### C MP, GFR #### [place] [address] #### CPEP, INSLN #### [address] [address] Potassium [Moles/Vol] 4.0 mmol/L Normal 3.5-5.1 [facility] ([place]) Comment on above: Performed By: #### C MP, GFR #### [address] [address] #### CPEP, INSLN #### [address] [address] Sodium [Moles/Vol] 137 mmol/L Normal 136-145 [facility] ([place]) Comment on above: Performed By: #### C MP, GFR #### [place] [id number] #### CPEP, INSLN #### [address] [address] Total Protein 7.4 G/dL Normal 6.4-8.2 [facility] ([place]) Comment on above: Performed By: #### C MP, GFR #### [place] [address] #### CPEP, INSLN #### [place] [address] Urea nitrogen [Mass/Vol] 19 mg/dL High 7-18 [facility] ([place]) Comment on above: Performed By: #### C MP, GFR #### [place] [address] #### CPEP, INSLN #### [place] [address] CPEPon 12-06-2023 C-Peptide 9.08 ng/mL High 0.81-3.85 [facility] ([place]) Comment on above: Performed By: #### C MP, GFR #### [place] [address] #### CPEP, INSLN #### [place] [address] INSLNon 12-06-2023 Insulin 39.77 munit/L High 2.60-37.60 [facility] ([place]) Comment on above: Performed By: #### C MP, GFR #### [place] [address] #### CPEP, INSLN #### [place] [address] LABORATORYOrdered By: SYSTEM SYSTEM on 12-06-2023 Albumin BCP dye [Mass/Vol] 4.0 G/dL Normal 3.4 - 4.8 G/dL AO ADM SS Albumin/Globulin [Mass ratio] 1.2 {ratio} Normal 1.1 - 2.5 ratio AO ADM SS ALP [Catalytic activity/Vol] 74 U/L Normal 40 - 135 U/L AO ADM SS ALT With P-5'-P [Catalytic activity/Vol] 40 U/L Normal 14 - 59 U/L AO ADM SS AST With P-5'-P [Catalytic activity/Vol] 26 U/L Normal 10 - 40 U/L AO ADM SS Bilirubin [Mass/Vol] 0.5 mg/dL Normal 0.2 - 1 .0 mg/dL AO ADM SS Comment on above: Interpretive Data: U se of this assay is not recommended for patients undergoing treatment with eltrombopag due to the potential for falsely elevated results. C peptide [Mass/Vol] 9.08 ng/mL High 0.81 - 3.85 ng/mL AH ADM SS Calcium [Mass/Vol] 9.6 mg/dL Normal 8.4 - 10. 2 mg/dL AO ADM SS Chloride [Moles/Vol] 101 mmol/L Normal 98 - 10 7 mmol/L AO ADM SS CO2 [Moles/Vol] 24 mmol/L Normal 23 - 31 mmol/L AO ADM SS Creatinine [Mass/Vol] 1.02 mg/dL Normal 0.55 - 1.02 mg/dL AO ADM SS Electrolyte Balance 12.0 mEq/L Normal 4.0 - 15 .0 mEq/L AO ADM SS GFR/1.73 sq M.predicted among blacks MDRD (S/P/Bld) [Vol rate/Area] 64 ml/min/1.73sqm Invalid Interpretation Code AO Chemistry S Comment on above: Interpretive Data: GFR Population mean for , Non- Americans Ages 20-29 = 116 mL/min/1.73 sq.m. Ages 30-39 = 107 mL/min/1.73 sq.m. Ages 40-49 = 99 mL/min/1.73 sq.m. Ages 50-59 = 93 mL/min/1.73 sq.m. Ages 60-69 = 85 mL/min/1.73 sq.m. Ages 70+ = 75 mL/min/1.73 sq.m. Chronic Kidney Disease: Less than 60 mL/min/1.73 square meters End Stage Renal Disease: Less than 15 mL/min/1.73 square meters GFR/1.73 sq M.predicted among non-blacks MDRD (S/P/Bld) [Vol rate/Area] 53 ml/min/1.73sqm Invalid Interpretation Code AO Chemistry S Comment on above: Interpretive Data: GFR Population mean for , Non- Americans Ages 20-29 = 116 mL/min/1.73 sq.m. Ages 30-39 = 107 mL/min/1.73 sq.m. Ages 40-49 = 99 mL/min/1.73 sq.m. Ages 50-59 = 93 mL/min/1.73 sq.m. Ages 60-69 = 85 mL/min/1.73 sq.m. Ages 70+ = 75 mL/min/1.73 sq.m. Chronic Kidney Disease: Less than 60 mL/min/1.73 square meters End Stage Renal Disease: Less than 15 mL/min/1.73 square meters Globulin 3.4 G/dL Invalid Interpretation Code AO ADM SS Glucose [Mass/Vol] 185 mg/dL High 83 - 110 mg/dL AO ADM SS Insulin Qn 39.77 munit/L High 2.60 - 37.60 mU/L AH ADM SS Potassium [Moles/Vol] 4.0 mmol/L Normal 3.5 - 5.1 mmol/L AO ADM SS Protein [Mass/Vol] 7.4 G/dL Normal 6.4 - 8.2 G/dL AO ADM SS Sodium [Moles/Vol] 137 mmol/L Normal 136 - 145 mmol/L AO ADM SS Urea nitrogen [Mass/Vol] 19 mg/dL High 7 - 18 mg/dL AO ADM SS Urea nitrogen/Creatinine [Mass ratio] 19 ratio Normal 7 - 27 ratio AO ADM SS .Auto Diffon 12-05-2023 Basophil, Absolute 0.0 10 3/mcL Normal 0.0-0.2 [facility] ([place]) Comment on above: Performed By: #### C MP, GFR #### [place] [address] #### CPEP, INSLN #### [address] [address] Basophils/100 WBC (Bld) 0.2 % Normal 0.0-2.5 [facility] ([place]) Comment on above: Performed By: #### C MP, GFR #### [place] [address] #### CPEP, INSLN #### [address] [address] Eosinophil, Absolute 0.0 10 3/mcL Normal 0.0-0.4 [facility] ([place]) Comment on above: Performed By: #### C MP, GFR #### [place] [address] #### CPEP, INSLN #### [address] [address] Eosinophils/100 WBC (Bld) 0.0 % Normal 0.0-7.0 [facility] ([place]) Comment on above: Performed By: #### C MP, GFR #### [address] [address] #### CPEP, INSLN #### [address] [address] Lymphocyte, Absolute 0.7 10 3/mcL Low 0.8-3.9 [facility] ([place]) Comment on above: Performed By: #### C MP, GFR #### [address] [address] #### CPEP, INSLN #### [address] [address] Lymphocytes/100 WBC (Bld) 6.1 % Low 10.0-50.0 [facility] ([place]) Comment on above: Performed By: #### C MP, GFR #### [address] [address] #### CPEP, INSLN #### [address] [address] Monocyte, Absolute 0.3 10 3/mcL Normal 0.2-1.0 [facility] ([place]) Comment on above: Performed By: #### C MP, GFR #### [address] [address] #### CPEP, INSLN #### [address] [address] Monocytes/100 WBC (Bld) 2.8 % Normal 1.7-13.0 [facility] ([place]) Comment on above: Performed By: #### C MP, GFR #### [address] [address] #### CPEP, INSLN #### [address] [address] Neutrophils/100 WBC (Bld) 90.9 % High 37.0-80.0 [facility] ([place]) Comment on above: Performed By: #### C MP, GFR #### [place] [id number] [place], [place] [address] #### CPEP, INSLN #### [facility] [address] [place] [address] .GFRon 12-05-2023 GFR Non- 40 ml/min/1.73sqm Normal [facility] ([place]) Comment on above: Result Comment: GFR Population mean for , Non- Americans Ages 20-29 = 116 mL/min/1.73 sq.m. Ages 30-39 = 107 mL/min/1.73 sq.m. Ages 40-49 = 99 mL/min/1.73 sq.m. Ages 50-59 = 93 mL/min/1.73 sq.m. Ages 60-69 = 85 mL/min/1.73 sq.m. Ages 70+ = 75 mL/min/1.73 sq.m. Chronic Kidney Disease: Less than 60 mL/min/1.73 square meters End Stage Renal Disease: Less than 15 mL/min/1.73 square meters Performed By: #### C MP, GFR #### [place] [id number] [place], [place] [address] #### CPEP, INSLN #### [facility] [address] [place] [address] GFR 48 ml/min/1.73sqm Normal [facility] ([place] Comment on above: Result Comment: GFR Population mean for , Non- Americans Ages 20-29 = 116 mL/min/1.73 sq.m. Ages 30-39 = 107 mL/min/1.73 sq.m. Ages 40-49 = 99 mL/min/1.73 sq.m. Ages 50-59 = 93 mL/min/1.73 sq.m. Ages 60-69 = 85 mL/min/1.73 sq.m. Ages 70+ = 75 mL/min/1.73 sq.m. Chronic Kidney Disease: Less than 60 mL/min/1.73 square meters End Stage Renal Disease: Less than 15 mL/min/1.73 square meters Performed By: #### C MP, GFR #### [address] [address] #### CPEP, INSLN #### [address] [address] .MDWon 12-05-2023 Monocyte Distribution Width 18.33 Normal 0.00-20.00 [facility] ([place]) Comment on above: Result Comment: For ED adult patients suspected of sepsis, MDW<=20.0 does not rule out sepsis or risk of sepsis Performed By: #### C MP, GFR #### [address] [address] #### CPEP, INSLN #### [address] [address] .NEUABSon 12-05-2023 Neutrophil, Absolute 10.1 10 3/mcL High 2.9-6.2 A [facility] ([place]) Comment on above: Performed By: #### C MP, GFR #### [place] [address] #### CPEP, INSLN #### [place] [address] APTTon 12-05-2023 aPTT Coag (Bld) [Time] 47.1 s High 25.0-35.0 [facility] ([place]) Comment on above: Result Comment: For Heparin anticoagulation therapy, the recommended therapeutic range is: 45.4-75.9 seconds. Patients on heparin therapy may have an extreme result. Performed By: #### C MP, GFR #### [address] [address] #### CPEP, INSLN #### [address] [address] BMPon 12-05-2023 BUN/Creatinine Ratio 14 ratio Normal 7- [facility] ([place]) Comment on above: Performed By: #### C MP, GFR #### [address] [address] #### CPEP, INSLN #### [place] [id number] Calcium [Mass/Vol] 9.4 mg/dL Normal 8.4-10.2 [facility] ([place]) Comment on above: Performed By: #### C MP, GFR #### [address] [address] #### CPEP, INSLN #### [address] [address] Chloride [Moles/Vol] 100 mmol/L Normal 98-107 [facility] ([place]) Comment on above: Performed By: #### C MP, GFR #### [address] [address] #### CPEP, INSLN #### [address] [address] CO2 [Moles/Vol] 24 mmol/L Normal 23-31 [facility] ([place]) Comment on above: Performed By: #### C MP, GFR #### [place] [address] #### CPEP, INSLN #### [address] [address] Creatinine [Mass/Vol] 1.31 mg/dL High 0.55-1.02 [facility] ([place]) Comment on above: Performed By: #### C MP, GFR #### [address] [address] #### CPEP, INSLN #### [address] [address] Electrolyte Balance 14.0 mEq/L Normal 4.0-15.0 [facility] ([place]) Comment on above: Performed By: #### C MP, GFR #### [place] [address] #### CPEP, INSLN #### [address] [address] Glucose [Mass/Vol] 479 mg/dL Critically abnormal 83-110 [facility] ([place]) Comment on above: Performed By: #### C MP, GFR #### [place] [address] #### CPEP, INSLN #### [address] [address] Potassium [Moles/Vol] 3.9 mmol/L Normal 3.5-5.1 [facility] ([place]) Comment on above: Performed By: #### C MP, GFR #### [address] [address] #### CPEP, INSLN #### [address] [address] Sodium [Moles/Vol] 138 mmol/L Normal 136-145 [facility] ([place]) Comment on above: Performed By: #### C MP, GFR #### [place] [id number] #### CPEP, INSLN #### [address] [address] Urea nitrogen [Mass/Vol] 18 mg/dL Normal 7-18 [facility] ([place]) Comment on above: Performed By: #### C MP, GFR #### [address] [address] #### CPEP, INSLN #### [address] [address] CBCon 12-05-2023 Erythrocyte distribution width (RBC) [Ratio] 14.5 % Normal 11.5-14.5 [facility] ([place]) Comment on above: Performed By: #### C MP, GFR #### [address] [address] #### CPEP, INSLN #### [address] [address] Hematocrit (Bld) [Volume fraction] 44.0 % Normal 37.0-47.0 [facility] ([place]) Comment on above: Performed By: #### C MP, GFR #### [address] [address] #### CPEP, INSLN #### [place] [address] Hgb 14.6 G/dL Normal 12.0-16.0 [facility] ([place]) Comment on above: Performed By: #### C MP, GFR #### [place] [address] #### CPEP, INSLN #### [place] [address] MCH (RBC) [Entitic mass] 30.7 pg Normal 27.0-31.2 [facility] ([place]) Comment on above: Performed By: #### C MP, GFR #### [place] [address] #### CPEP, INSLN #### [place] [address] MCHC 33.2 G/dL Normal 33.0-37.0 [facility] ([place]) Comment on above: Performed By: #### C MP, GFR #### [place] [address] #### CPEP, INSLN #### [place] [address] MCV (RBC) [Entitic vol] 92.4 fL Normal 80.0-94.0 [facility] ([place]) Comment on above: Performed By: #### C MP, GFR #### [place] [address] #### CPEP, INSLN #### [place] [address] Platelet 225 10 3/mcL Normal 130-400 [facility] ([place]) Comment on above: Performed By: #### C MP, GFR #### [place] [address] #### CPEP, INSLN #### [place] [address] Platelet mean volume (Bld) [Entitic vol] 8.3 fL Normal 7.4-10.4 [facility] ([place]) Comment on above: Performed By: #### C MP, GFR #### [place] [address] [place], [place] [address] #### CPEP, INSLN #### [address] [address] RBC 4.76 10 6/mcL Normal 4.20-5.40 [facility] ([place]) Comment on above: Performed By: #### C MP, GFR #### [address] [address] #### CPEP, INSLN #### [address] [address] WBC 11.1 10 3/mcL High 4.6-10.8 [facility] ([place]) Comment on above: Performed By: #### C MP, GFR #### [place] [address] #### CPEP, INSLN #### [place] [address] LABORATORYOrdered By: Darshana Real on 12-05-2023 Glucose [Mass/Vol] 361 mg/dL High 82 - 115 mg/dL [facility] Work Phone: LABORATORYOrdered By: Emiliana Glass on 12-05-2023 aPTT Coag (PPP) [Time] 47.1 s High 25.0 - 35.0 seconds AO [facility] SS Comment on above: Interpretive Data: F or Heparin anticoagulation therapy, the recommended therapeutic range is: 45.4-75.9 seconds. Patients on heparin therapy may have an extreme result. INR Coag (PPP) [Relative time] 2.3 {INR} Invalid Interpretation Code AO [facility] SS Comment on above: Interpretive Data: Teodoro rucker [employer] (CHEST, 1991, [id number]) recommended therapeutic range for oral anticoagulant therapy is: LOW RISK: Prophylaxis of venous thrombosis INR: 2.0-3.0 Treatment of pulmonary embolism 2.0-3.0 Prevention of systemic embolism 2.0-3.0 HIGH RISK: Mechanical prosthetic valves 2.5-3.5 PT Coag (PPP) [Time] 26.2 s High 9.0 - 1 4.4 seconds AO [facility] SS LABORATORYOrdered By: SYSTEM SYSTEM on 12-05-2023 Basophil, Absolute 0.0 103/mcL Normal 0.0 - 0.2 10^3/mcL AO Workflow SS Basophils/100 WBC (Bld) 0.2 % Normal 0.0 - 2.5 % AO Workflow SS Calcium [Mass/Vol] 9.4 mg/dL Normal 8.4 - 10. 2 mg/dL AO ADM SS Chloride [Moles/Vol] 100 mmol/L Normal 98 - 10 7 mmol/L AO ADM SS CO2 [Moles/Vol] 24 mmol/L Normal 23 - 31 mmol/L AO ADM SS Creatinine [Mass/Vol] 1.31 mg/dL High 0.55 - 1.02 mg/dL AO ADM SS Electrolyte Balance 14.0 mEq/L Normal 4.0 - 15 .0 mEq/L AO ADM SS Eosinophil, Absolute 0.0 103/mcL Normal 0.0 - 0 .4 10^3/mcL AO Workflow SS Eosinophils/100 WBC (Bld) 0.0 % Normal 0.0 - 7.0 % AO Workflow SS Erythrocyte distribution width (RBC) [Ratio] 14.5 % Normal 11.5 - 14.5 % AO Workflow SS GFR/1.73 sq M.predicted among blacks MDRD (S/P/Bld) [Vol rate/Area] 48 ml/min/1.73sqm Invalid Interpretation Code AO Chemistry S Comment on above: Interpretive Data: GFR Population mean for , Non- Americans Ages 20-29 = 116 mL/min/1.73 sq.m. Ages 30-39 = 107 mL/min/1.73 sq.m. Ages 40-49 = 99 mL/min/1.73 sq.m. Ages 50-59 = 93 mL/min/1.73 sq.m. Ages 60-69 = 85 mL/min/1.73 sq.m. Ages 70+ = 75 mL/min/1.73 sq.m. Chronic Kidney Disease: Less than 60 mL/min/1.73 square meters End Stage Renal Disease: Less than 15 mL/min/1.73 square meters GFR/1.73 sq M.predicted among non-blacks MDRD (S/P/Bld) [Vol rate/Area] 40 ml/min/1.73sqm Invalid Interpretation Code AO Chemistry S Comment on above: Interpretive Data: GFR Population mean for , Non- Americans Ages 20-29 = 116 mL/min/1.73 sq.m. Ages 30-39 = 107 mL/min/1.73 sq.m. Ages 40-49 = 99 mL/min/1.73 sq.m. Ages 50-59 = 93 mL/min/1.73 sq.m. Ages 60-69 = 85 mL/min/1.73 sq.m. Ages 70+ = 75 mL/min/1.73 sq.m. Chronic Kidney Disease: Less than 60 mL/min/1.73 square meters End Stage Renal Disease: Less than 15 mL/min/1.73 square meters Glucose [Mass/Vol] 479 mg/dL Invalid Interpretation Code 83 - 110 mg/dL AO ADM SS Hematocrit (Bld) [Volume fraction] 44.0 % Normal 37.0 - 47.0 % AO Workflow SS Hemoglobin (Bld) [Mass/Vol] 14.6 G/dL Normal 12.0 - 16.0 G/dL AO Workflow SS Lymphocyte, Absolute 0.7 103/mcL Low 0.8 - 3 .9 10^3/mcL AO Workflow SS Lymphocytes/100 WBC (Bld) 6.1 % Low 10.0 - 50.0 % AO Workflow SS MCH (RBC) [Entitic mass] 30.7 pg Normal 27.0 - 31.2 pg AO Workflow SS MCHC 33.2 G/dL Normal 33.0 - 37.0 G/dL AO Workflow SS MCV (RBC) [Entitic vol] 92.4 fL Normal 80.0 - 94.0 fL AO Workflow SS Monocyte distribution width Auto (Bld) [Entitic vol] 18.33 1 Normal 0.00 - 20.00 AO Workflow SS Comment on above: Result Comment: For ED adult patients suspected of sepsis, MDW<=20.0 does not rule out sepsis or risk of sepsis Monocyte, Absolute 0.3 103/mcL Normal 0.2 - 1.0 10^3/mcL AO Workflow SS Monocytes/100 WBC (Bld) 2.8 % Normal 1.7 - 13.0 % AO Workflow SS Neutrophil, Absolute 10.1 103/mcL High 2.9 - 6 .2 10^3/mcL AO Workflow SS Neutrophils/100 WBC (Bld) 90.9 % High 37.0 - 80.0 % AO Workflow SS Platelet mean volume (Bld) [Entitic vol] 8.3 fL Normal 7.4 - 10.4 fL AO Workflow SS Platelets (Bld) [#/Vol] 225 103/mcL Normal 130 - 400 10^3/mcL AO Workflow SS Potassium [Moles/Vol] 3.9 mmol/L Normal 3.5 - 5.1 mmol/L AO ADM SS RBC (Bld) [#/Vol] 4.76 106/mcL Normal 4.20 - 5.4 0 10^6/mcL AO Workflow SS Sodium [Moles/Vol] 138 mmol/L Normal 136 - 145 mmol/L AO ADM SS Troponin I.cardiac DL <= 0.01 ng/mL [Mass/Vol] 6 ng/L Normal 0 - 51 ng/L AO ADM SS Comment on above: Interpretive Data: H igh Sensitive Troponin I Reference Ranges: Female: 0-51 ng/L Male: 0-76 ng/L Testing performed on [employer] using a homogeneous sandwich chemiluminescent immunoassay based on [employer] technology. Urea nitrogen [Mass/Vol] 18 mg/dL Normal 7 - 18 mg/dL AO ADM SS Urea nitrogen/Creatinine [Mass ratio] 14 ratio Normal 7 - 27 ratio AO ADM SS WBC (Bld) [#/Vol] 11.1 103/mcL High 4.6 - 10.8 10^3/mcL AO Workflow SS PROon 12-05-2023 PT Coag (PPP) [Time] 26.2 s High 9.0-14.4 [facility] ([place]) Comment on above: Performed By: #### C MP, GFR #### [address] [address] #### CPEP, INSLN #### [address] [address] PT International Ratio 2.3 Normal [facility] ([place]) Comment on above: Result Comment: The [employer] (CHEST, 1992, [id number]) recommended therapeutic range for oral anticoagulant therapy is: LOW RISK: Prophylaxis of venous thrombosis INR: 2.0-3.0 Treatment of pulmonary embolism 2.0-3.0 Prevention of systemic embolism 2.0-3.0 HIGH RISK: Mechanical prosthetic valves 2.5-3.5 Performed By: #### C MP, GFR #### [address] [address] #### CPEP, INSLN #### [address] [facility] High Sensitivity Troponin I 6 ng/L Normal 0-51 [facility] ([place]) Comment on above: Result Comment: High Sensitive Troponin I Reference Ranges: Female: 0-51 ng/L Male: 0-76 ng/L Testing performed on [employer] using a homogeneous sandwich chemiluminescent immunoassay based on [employer] technology. Performed By: #### C MP, GFR #### [address] [address] #### CPEP, INSLN #### [address] [address] LABORATORYOrdered By: Pinky Hankins on 11-23-2023 Albumin DL <= 20 mg/L (U) [Mass/Vol] 156 mcg/dL Invalid Interpretation Code AO ADM SS Albumin/Creatinine DL <= 20 mg/L (U) [Mass ratio] 1 mcg/mg Normal 0 - 30 mcg/mg AO ADM SS Creatinine (U) [Mass/Vol] 134.1 mg/dL High 28.0 - 117.0 mg/dL AO ADM SS MALBRon 11-23-2023 U Creatinine 134.1 mg/dL High 28.0-117.0 [facility] ([place]) Comment on above: Performed By: #### L IPID, A1C, TSH, VIDH, CMP, GFR #### [address] [address] U Microalb 156 mcg/dL Normal [facility] ([place]) Comment on above: Performed By: #### L IPID, A1C, TSH, VIDH, CMP, GFR #### [address] [address] U Ratio Alb/Cre 1 mcg/mg Normal 0-30 [facility] ([place]) Comment on above: Performed By: #### L IPID, A1C, TSH, VIDH, CMP, GFR #### [address] [address] .GFRon 11-13-2023 GFR 80 ml/min/1.73sqm Normal [facility] ([place]) Comment on above: Result Comment: GFR Population mean for , Non- Americans Ages 20-29 = 116 mL/min/1.73 sq.m. Ages 30-39 = 107 mL/min/1.73 sq.m. Ages 40-49 = 99 mL/min/1.73 sq.m. Ages 50-59 = 93 mL/min/1.73 sq.m. Ages 60-69 = 85 mL/min/1.73 sq.m. Ages 70+ = 75 mL/min/1.73 sq.m. Chronic Kidney Disease: Less than 60 mL/min/1.73 square meters End Stage Renal Disease: Less than 15 mL/min/1.73 square meters Performed By: #### P RO #### [address] [address] GFR Non- 66 ml/min/1.73sqm Normal [facility] ([place]) Comment on above: Result Comment: GFR Population mean for , Non- Americans Ages 20-29 = 116 mL/min/1.73 sq.m. Ages 30-39 = 107 mL/min/1.73 sq.m. Ages 40-49 = 99 mL/min/1.73 sq.m. Ages 50-59 = 93 mL/min/1.73 sq.m. Ages 60-69 = 85 mL/min/1.73 sq.m. Ages 70+ = 75 mL/min/1.73 sq.m. Chronic Kidney Disease: Less than 60 mL/min/1.73 square meters End Stage Renal Disease: Less than 15 mL/min/1.73 square meters Performed By: #### P RO #### [address] [address] A1Con 11-13-2023 HbA1c (Bld) [Mass fraction] 7.1 % High 4.3-6.4 [facility] ([place]) Comment on above: Performed By: #### P RO #### [address] [address] CMPon 11-13-2023 Albumin Level 3.6 G/dL Normal 3.4-4.8 [facility] ([place]) Comment on above: Performed By: #### P RO #### [address] [address] Albumin/Globulin [Mass ratio] 1.1 {ratio} Normal 1.1-2.5 [facility] ([place]) Comment on above: Performed By: #### P RO #### [address] [address] ALP [Catalytic activity/Vol] 65 U/L Normal 40-135 [facility] ([place]) Comment on above: Performed By: #### P RO #### [address] [address] ALT [Catalytic activity/Vol] 28 U/L Normal 14-59 [facility] ([place]) Comment on above: Performed By: #### P RO #### [address] [address] AST [Catalytic activity/Vol] 26 U/L Normal 10-40 [facility] ([place]) Comment on above: Performed By: #### P RO #### [address] [address] Bili Total 0.6 mg/dL Normal 0.2-1.0 [facility] ([place]) Comment on above: Result Comment: Use of this assay is not recommended for patients undergoing treatment with eltrombopag due to the potential for falsely elevated results. Performed By: #### P RO #### [address] [address] BUN/Creatinine Ratio 15 ratio Normal 7-27 [facility] ([place]) Comment on above: Performed By: #### P RO #### [address] [address] Calcium [Mass/Vol] 9.2 mg/dL Normal 8.4-10.2 [facility] ([place]) Comment on above: Performed By: #### P RO #### [address] [address] Chloride [Moles/Vol] 105 mmol/L Normal 98-107 [facility] ([place]) Comment on above: Performed By: #### P RO #### [address] [address] CO2 [Moles/Vol] 25 mmol/L Normal 23-31 [facility] ([place]) Comment on above: Performed By: #### P RO #### [address] [address] Creatinine [Mass/Vol] 0.84 mg/dL Normal 0.55-1.02 [facility] ([place]) Comment on above: Performed By: #### P RO #### [address] [address] Electrolyte Balance 13.0 mEq/L Normal 4.0-15.0 [facility] ([place]) Comment on above: Performed By: #### P RO #### [address] [address] Globulin 3.2 G/dL Normal [facility] ([place]) Comment on above: Performed By: #### P RO #### [address] [address] Glucose [Mass/Vol] 147 mg/dL High 83-110 [facility] ([place]) Comment on above: Performed By: #### P RO #### [address] [address] Potassium [Moles/Vol] 3.7 mmol/L Normal 3.5-5.1 [facility] ([place]) Comment on above: Performed By: #### P RO #### [address] [address] Sodium [Moles/Vol] 143 mmol/L Normal 136-145 [facility] ([place]) Comment on above: Performed By: #### P RO #### [address] [address] Total Protein 6.8 G/dL Normal 6.4-8.2 [facility] ([place]) Comment on above: Performed By: #### P RO #### [address] [address] Urea nitrogen [Mass/Vol] 13 mg/dL Normal 7-18 [facility] ([place]) Comment on above: Performed By: #### P RO #### [address] [address] FT3on 11-13-2023 Free T3 [Mass/Vol] 1.81 pg/mL Low 2.30-4.00 [facility] ([place]) Comment on above: Performed By: #### P RO #### [address] [address] FT4on 11-13-2023 Free T4 [Mass/Vol] 1.15 ng/dL Normal 0.76-1.46 [facility] ([place]) Comment on above: Performed By: #### P RO #### [address] [address] TSHon 11-13-2023 TSH Qn 3.17 m[IU]/L Normal 0.36-3.74 [facility] ([place]) Comment on above: Performed By: #### P RO #### [address] [address] VIDHon 11-13-2023 Vit. D 25-Hydroxy 69.5 ng/mL Normal [facility] ([place]) Comment on above: Result Comment: Inte rpretive Values Based on Total 25(OH) Vitamin D: Deficient <20 ng/mL Insufficient 20 - <30 ng/mL Sufficient 30-100 ng/mL Performed By: #### P RO #### [address] [address] [address] ABDOMEN/PELVIS W/O CONTRA STon 11-08-2023 CT ABDOMEN/PELVIS W/O CONTRAST ORIGINAL EXAMINATION: CT OF THE ABDOMEN AND PELVIS WITHOUT CONTRAST 11/08/2023 8:03 am TECHNIQUE: CT of the abdomen and pelvis was performed without the administration of intravenous contrast. Multiplanar reformatted images are provided for review. Automated exposure control, iterative reconstruction, and/or weight based adjustment of the mA/kV was utilized to reduce the radiation dose to as low as reasonably achievable. COMPARISON: 12/02/2021. HISTORY: ORDERING SYSTEM PROVIDED HISTORY: Reason for Exam: left flank pain, hx obstructive stone 2021 FINDINGS: The kidneys are unremarkable, there is no hydronephrosis and no urinary tract calculi are identified. 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 The liver, spleen, adrenals, pancreas, and gallbladder are unremarkable. There is no abdominal aortic aneurysm. There are no enlarged lymph nodes. A small fat containing umbilical hernia is noted. The bowel is unremarkable. There is no free air or free fluid. Advanced degenerative changes are again demonstrated in the lumbar spine. There is a stable mild chronic T12 compression deformity. There is no acute bony abnormality. There is stable mild scarring at the lung bases. A small sliding hiatal hernia is stable. IMPRESSION: No evidence of obstructive uropathy or other acute abnormality. Interpreted by: Polo Powers Preliminary Report By: Polo Powers Electronically signed By Polo Powers Dictated Date: 11/08/2023 9:35:47 AM Prelim Date: 11/08/2023 9:40:22 AM Sign Date: 11/08/2023 9:40:22 AM Ordering Provider: ADDIS Fry [facility] ([place]) .Auto Diffon 11-07-2023 Basophil, Absolute 0.1 10 3/mcL Normal 0.0-0.2 [facility] ([place]) Comment on above: Performed By: #### C MP, GFR #### [address] [address] #### CPEP, INSLN #### [address] [address] Basophils/100 WBC (Bld) 0.6 % Normal 0.0-2.5 [facility] ([place]) Comment on above: Performed By: #### C MP, GFR #### [address] [address] #### CPEP, INSLN #### [address] [address] Eosinophil, Absolute 0.1 10 3/mcL Normal 0.0-0.4 [facility] ([place]) Comment on above: Performed By: #### C MP, GFR #### [address] [address] #### CPEP, INSLN #### [address] [address] Eosinophils/100 WBC (Bld) 0.6 % Normal 0.0-7.0 [facility] ([place]) Comment on above: Performed By: #### C MP, GFR #### [place] [id number] #### CPEP, INSLN #### [address] [address] Lymphocyte, Absolute 1.5 10 3/mcL Normal 0.8-3.9 [facility] ([place]) Comment on above: Performed By: #### C MP, GFR #### [place] [id number] #### CPEP, INSLN #### [address] [address] Lymphocytes/100 WBC (Bld) 18.3 % Normal 10.0-50.0 [facility] ([place]) Comment on above: Performed By: #### C MP, GFR #### [place] [id number] #### CPEP, INSLN #### [address] [address] Monocyte, Absolute 0.6 10 3/mcL Normal 0.2-1.0 [facility] ([place]) Comment on above: Performed By: #### C MP, GFR #### [address] [address] #### CPEP, INSLN #### [address] [address] Monocytes/100 WBC (Bld) 7.6 % Normal 1.7-13.0 [facility] ([place]) Comment on above: Performed By: #### C MP, GFR #### [address] [address] #### CPEP, INSLN #### [address] [address] Neutrophils/100 WBC (Bld) 72.9 % Normal 37.0-80.0 [facility] ([place]) Comment on above: Performed By: #### C MP, GFR #### [address] [address] #### CPEP, INSLN #### [address] [address] .GFRon 11-07-2023 GFR 66 ml/min/1.73sqm Normal [facility] ([place]) Comment on above: Result Comment: GFR Population mean for , Non- Americans Ages 20-29 = 116 mL/min/1.73 sq.m. Ages 30-39 = 107 mL/min/1.73 sq.m. Ages 40-49 = 99 mL/min/1.73 sq.m. Ages 50-59 = 93 mL/min/1.73 sq.m. Ages 60-69 = 85 mL/min/1.73 sq.m. Ages 70+ = 75 mL/min/1.73 sq.m. Chronic Kidney Disease: Less than 60 mL/min/1.73 square meters End Stage Renal Disease: Less than 15 mL/min/1.73 square meters Performed By: #### C MP, GFR #### [address] [address] #### CPEP, INSLN #### [address] [address] GFR Non- 55 ml/min/1.73sqm Normal [facility] ([place]) Comment on above: Result Comment: GFR Population mean for , Non- Americans Ages 20-29 = 116 mL/min/1.73 sq.m. Ages 30-39 = 107 mL/min/1.73 sq.m. Ages 40-49 = 99 mL/min/1.73 sq.m. Ages 50-59 = 93 mL/min/1.73 sq.m. Ages 60-69 = 85 mL/min/1.73 sq.m. Ages 70+ = 75 mL/min/1.73 sq.m. Chronic Kidney Disease: Less than 60 mL/min/1.73 square meters End Stage Renal Disease: Less than 15 mL/min/1.73 square meters Performed By: #### C MP, GFR #### [place] [address] #### CPEP, INSLN #### [address] [address] .Morphon 11-07-2023 Platelet Estimate Normal Normal [facility] ([place]) Comment on above: Performed By: #### C MP, GFR #### [place] [address] #### CPEP, INSLN #### [place] [address] .NEUABSon 11-07-2023 Neutrophil, Absolute 6.2 10 3/mcL Normal 2.9-6.2 [facility] ([place]) Comment on above: Performed By: #### C MP, GFR #### [place] [address] #### CPEP, INSLN #### [place] [address] CBCon 11-07-2023 Erythrocyte distribution width (RBC) [Ratio] 14.8 % High 11.5-14.5 [facility] ([place]) Comment on above: Order Comment: Urgen t Performed By: #### C MP, GFR #### [place] [address] #### CPEP, INSLN #### [place] [address] Hematocrit (Bld) [Volume fraction] 42.4 % Normal 37.0-47.0 [facility] ([place]) Comment on above: Order Comment: Urgen t Performed By: #### C MP, GFR #### [place] [address] #### CPEP, INSLN #### [place] [address] Hgb 14.4 G/dL Normal 12.0-16.0 [facility] ([place]) Comment on above: Order Comment: Urgen t Performed By: #### C MP, GFR #### [place] [address] #### CPEP, INSLN #### [address] [address] MCH (RBC) [Entitic mass] 31.4 pg High 27.0-31.2 [facility] ([place]) Comment on above: Order Comment: Urgen t Performed By: #### C MP, GFR #### [place] [address] #### CPEP, INSLN #### [place] [address] MCHC 34.0 G/dL Normal 33.0-37.0 [facility] ([place]) Comment on above: Order Comment: Urgen t Performed By: #### C MP, GFR #### [place] [address] #### CPEP, INSLN #### [address] [address] MCV (RBC) [Entitic vol] 92.3 fL Normal 80.0-94.0 [facility] ([place]) Comment on above: Order Comment: Urgen t Performed By: #### C MP, GFR #### [place] [address] #### CPEP, INSLN #### [place] [address] Platelet 224 10 3/mcL Normal 130-400 [facility] ([place]) Comment on above: Order Comment: Urgen t Performed By: #### C MP, GFR #### [place] [address] #### CPEP, INSLN #### [address] [address] Platelet mean volume (Bld) [Entitic vol] 7.8 fL Normal 7.4-10.4 [facility] ([place]) Comment on above: Order Comment: Urgen t Performed By: #### C MP, GFR #### [address] [address] #### CPEP, INSLN #### [address] [address] RBC 4.59 10 6/mcL Normal 4.20-5.40 [facility] ([place]) Comment on above: Order Comment: Urgen t Performed By: #### C MP, GFR #### [place] [id number] #### CPEP, INSLN #### [address] [address] WBC 8.5 10 3/mcL Normal 4.6-10.8 [facility] ([place]) Comment on above: Order Comment: Urgen t Performed By: #### C MP, GFR #### [place] [address] #### CPEP, INSLN #### [place] [address] CMPon 11-07-2023 Albumin Level 3.8 G/dL Normal 3.4-4.8 [facility] ([place]) Comment on above: Order Comment: Urgen t Performed By: #### C MP, GFR #### [place] [address] #### CPEP, INSLN #### [place] [address] Albumin/Globulin [Mass ratio] 1.2 {ratio} Normal 1.1-2.5 [facility] ([place]) Comment on above: Order Comment: Urgen t Performed By: #### C MP, GFR #### [place] [id number] #### CPEP, INSLN #### [place] [id number] ALP [Catalytic activity/Vol] 70 U/L Normal 40-135 [facility] ([place]) Comment on above: Order Comment: Urgen t Performed By: #### C MP, GFR #### [place] [address] #### CPEP, INSLN #### [address] [address] ALT [Catalytic activity/Vol] 32 U/L Normal 14-59 [facility] ([place]) Comment on above: Order Comment: Urgen t Performed By: #### C MP, GFR #### [place] [address] #### CPEP, INSLN #### [address] [address] AST [Catalytic activity/Vol] 22 U/L Normal 10-40 [facility] ([place]) Comment on above: Order Comment: Urgen t Performed By: #### C MP, GFR #### [place] [address] #### CPEP, INSLN #### [address] [address] Bili Total 0.5 mg/dL Normal 0.2-1.0 [facility] ([place]) Comment on above: Order Comment: Urgen t Result Comment: Use of this assay is not recommended for patients undergoing treatment with eltrombopag due to the potential for falsely elevated results. Performed By: #### C MP, GFR #### [place] [address] #### CPEP, INSLN #### [address] [address] BUN/Creatinine Ratio 17 ratio Normal 7-27 [facility] ([place]) Comment on above: Order Comment: Urgen t Performed By: #### C MP, GFR #### [place] [address] #### CPEP, INSLN #### [address] [address] Calcium [Mass/Vol] 9.2 mg/dL Normal 8.4-10.2 [facility] ([place]) Comment on above: Order Comment: Urgen t Performed By: #### C MP, GFR #### [place] [address] #### CPEP, INSLN #### [address] [address] Chloride [Moles/Vol] 103 mmol/L Normal 98-107 [facility] ([place]) Comment on above: Order Comment: Urgen t Performed By: #### C MP, GFR #### [address] [address] #### CPEP, INSLN #### [address] [address] CO2 [Moles/Vol] 28 mmol/L Normal 23-31 [facility] ([place]) Comment on above: Order Comment: Urgen t Performed By: #### C MP, GFR #### [place] [id number] #### CPEP, INSLN #### [address] [address] Creatinine [Mass/Vol] 0.99 mg/dL Normal 0.55-1.02 [facility] ([place]) Comment on above: Order Comment: Urgen t Performed By: #### C MP, GFR #### [place] [id number] #### CPEP, INSLN #### [address] [address] Electrolyte Balance 6.0 mEq/L Normal 4.0-15.0 [facility] ([place]) Comment on above: Order Comment: Urgen t Performed By: #### C MP, GFR #### [place] [id number] #### CPEP, INSLN #### [address] [address] Globulin 3.3 G/dL Normal [facility] ([place]) Comment on above: Order Comment: Urgen t Performed By: #### C MP, GFR #### [place] [id number] #### CPEP, INSLN #### [address] [address] Glucose [Mass/Vol] 150 mg/dL High 83-110 [facility] ([place]) Comment on above: Order Comment: Urgen t Performed By: #### C MP, GFR #### [address] [address] #### CPEP, INSLN #### [address] [address] Potassium [Moles/Vol] 3.8 mmol/L Normal 3.5-5.1 [facility] ([place]) Comment on above: Order Comment: Urgen t Performed By: #### C MP, GFR #### [address] [address] #### CPEP, INSLN #### [address] [address] Sodium [Moles/Vol] 137 mmol/L Normal 136-145 [facility] ([place]) Comment on above: Order Comment: Urgen t Performed By: #### C MP, GFR #### [place] [id number] #### CPEP, INSLN #### [address] [address] Total Protein 7.1 G/dL Normal 6.4-8.2 [facility] ([place]) Comment on above: Order Comment: Urgen t Performed By: #### C MP, GFR #### [place] [id number] #### CPEP, INSLN #### [address] [address] Urea nitrogen [Mass/Vol] 17 mg/dL Normal 7-18 [facility] ([place]) Comment on above: Order Comment: Urgen t Performed By: #### C MP, GFR #### [address] [address] #### CPEP, INSLN #### [address] [address] LABORATORYOrdered By: SYSTEM SYSTEM on 11-07-2023 Albumin BCP dye [Mass/Vol] 3.8 G/dL Normal 3.4 - 4.8 G/dL AO ADM SS Albumin/Globulin [Mass ratio] 1.2 {ratio} Normal 1.1 - 2.5 ratio AO ADM SS ALP [Catalytic activity/Vol] 70 U/L Normal 40 - 135 U/L AO ADM SS ALT With P-5'-P [Catalytic activity/Vol] 32 U/L Normal 14 - 59 U/L AO ADM SS AST With P-5'-P [Catalytic activity/Vol] 22 U/L Normal 10 - 40 U/L AO ADM SS Basophil, Absolute 0.1 103/mcL Normal 0.0 - 0.2 10^3/mcL AO Workflow SS Basophils/100 WBC (Bld) 0.6 % Normal 0.0 - 2.5 % AO Workflow SS Bilirubin [Mass/Vol] 0.5 mg/dL Normal 0.2 - 1 .0 mg/dL AO ADM SS Comment on above: Interpretive Data: U se of this assay is not recommended for patients undergoing treatment with eltrombopag due to the potential for falsely elevated results. Calcium [Mass/Vol] 9.2 mg/dL Normal 8.4 - 10. 2 mg/dL AO ADM SS Chloride [Moles/Vol] 103 mmol/L Normal 98 - 10 7 mmol/L AO ADM SS CO2 [Moles/Vol] 28 mmol/L Normal 23 - 31 mmol/L AO ADM SS Creatinine [Mass/Vol] 0.99 mg/dL Normal 0.55 - 1.02 mg/dL AO ADM SS Electrolyte Balance 6.0 mEq/L Normal 4.0 - 15 .0 mEq/L AO ADM SS Eosinophil, Absolute 0.1 103/mcL Normal 0.0 - 0 .4 10^3/mcL AO Workflow SS Eosinophils/100 WBC (Bld) 0.6 % Normal 0.0 - 7.0 % AO Workflow SS Erythrocyte distribution width (RBC) [Ratio] 14.8 % High 11.5 - 14.5 % AO Workflow SS GFR/1.73 sq M.predicted among blacks MDRD (S/P/Bld) [Vol rate/Area] 66 ml/min/1.73sqm Invalid Interpretation Code AO Chemistry S Comment on above: Interpretive Data: GFR Population mean for , Non- Americans Ages 20-29 = 116 mL/min/1.73 sq.m. Ages 30-39 = 107 mL/min/1.73 sq.m. Ages 40-49 = 99 mL/min/1.73 sq.m. Ages 50-59 = 93 mL/min/1.73 sq.m. Ages 60-69 = 85 mL/min/1.73 sq.m. Ages 70+ = 75 mL/min/1.73 sq.m. Chronic Kidney Disease: Less than 60 mL/min/1.73 square meters End Stage Renal Disease: Less than 15 mL/min/1.73 square meters GFR/1.73 sq M.predicted among non-blacks MDRD (S/P/Bld) [Vol rate/Area] 55 ml/min/1.73sqm Invalid Interpretation Code AO Chemistry S Comment on above: Interpretive Data: GFR Population mean for , Non- Americans Ages 20-29 = 116 mL/min/1.73 sq.m. Ages 30-39 = 107 mL/min/1.73 sq.m. Ages 40-49 = 99 mL/min/1.73 sq.m. Ages 50-59 = 93 mL/min/1.73 sq.m. Ages 60-69 = 85 mL/min/1.73 sq.m. Ages 70+ = 75 mL/min/1.73 sq.m. Chronic Kidney Disease: Less than 60 mL/min/1.73 square meters End Stage Renal Disease: Less than 15 mL/min/1.73 square meters Globulin 3.3 G/dL Invalid Interpretation Code AO ADM SS Glucose [Mass/Vol] 150 mg/dL High 83 - 110 mg/dL AO ADM SS Hematocrit (Bld) [Volume fraction] 42.4 % Normal 37.0 - 47.0 % AO Workflow SS Hemoglobin (Bld) [Mass/Vol] 14.4 G/dL Normal 12.0 - 16.0 G/dL AO Workflow SS Lymphocyte, Absolute 1.5 103/mcL Normal 0.8 - 3 .9 10^3/mcL AO Workflow SS Lymphocytes/100 WBC (Bld) 18.3 % Normal 10.0 - 50.0 % AO Workflow SS MCH (RBC) [Entitic mass] 31.4 pg High 27.0 - 31.2 pg AO Workflow SS MCHC 34.0 G/dL Normal 33.0 - 37.0 G/dL AO Workflow SS MCV (RBC) [Entitic vol] 92.3 fL Normal 80.0 - 94.0 fL AO Workflow SS Monocyte, Absolute 0.6 103/mcL Normal 0.2 - 1.0 10^3/mcL AO Workflow SS Monocytes/100 WBC (Bld) 7.6 % Normal 1.7 - 13.0 % AO Workflow SS Neutrophil, Absolute 6.2 103/mcL Normal 2.9 - 6 .2 10^3/mcL AO Workflow SS Neutrophils/100 WBC (Bld) 72.9 % Normal 37.0 - 80.0 % AO Workflow SS Platelet mean volume (Bld) [Entitic vol] 7.8 fL Normal 7.4 - 10.4 fL AO Workflow SS Platelets (Bld) [#/Vol] 224 103/mcL Normal 130 - 400 10^3/mcL AO Workflow SS Potassium [Moles/Vol] 3.8 mmol/L Normal 3.5 - 5.1 mmol/L AO ADM SS Protein [Mass/Vol] 7.1 G/dL Normal 6.4 - 8.2 G/dL AO ADM SS RBC (Bld) [#/Vol] 4.59 106/mcL Normal 4.20 - 5.4 0 10^6/mcL AO Workflow SS Sodium [Moles/Vol] 137 mmol/L Normal 136 - 145 mmol/L AO ADM SS Urea nitrogen [Mass/Vol] 17 mg/dL Normal 7 - 18 mg/dL AO ADM SS Urea nitrogen/Creatinine [Mass ratio] 17 ratio Normal 7 - 27 ratio AO ADM SS WBC (Bld) [#/Vol] 8.5 103/mcL Normal 4.6 - 10.8 10^3/mcL AO Workflow SS LABORATORYOrdered By: Reggie soliz on 11-07-2023 Platelet Estimate Normal (11/07/23 12:32 PM) Normal AO Hematology S No Panel Informationon 11-06 Culture Urine <10,000 cfu/ml. No Significant growth. Sensitivity not indicated. [facility] Work Phone: NM BONE IMAGING WHOLE BODYon 08-13-2023 NM BONE IMAGING WHOLE BODY ORIGINAL EXAMINATION: WHOLE BODY BONE SCAN08/13/2023 2:33 pm TECHNIQUE: The patient received an intravenous injection of 30.9 millicuries of Tc-99m MDP. Early phase images of the thoracolumbar spine were obtained. After approximately 3h, multiple delayed static planar images were then acquired. Delayed Anterior and posterior planar images of the skeleton from skull vertex to feet were also obtained. COMPARISON: 08/06/2023 MRI lumbar spine HISTORY: ORDERING SYSTEM PROVIDED HISTORY: Reason for Exam: LUMBAR SPINE X RAY W WEDGE COMPRESSION FRACTURE UNDETERMINED AGE AT T 12 T-12 COMPRESSION FX SEEN ON MRI FINDINGS: Early phase images demonstrate no abnormal activity to suggest soft tissue inflammation or acuity. Delayed osseous phase images demonstrate no suspicious linear activity at the T12 level to correspond with known T12 compression deformity. There are areas of uptake in an arthritic pattern involving the shoulders and knees. Activity in the bilateral kidneys and the urinary bladder represent normal route of radiopharmaceutical excretion. The soft tissue distribution of radiotracer activity is within normal limits. IMPRESSION: No findings to conclude acute or subacute T12 compression deformity. Interpreted by: Daniel Meeks DO Preliminary Report By: Daniel Meeks DO Electronically signed By Daniel Meeks DO Dictated Date: 08/13/2023 4:25:22 PM Prelim Date: 08/13/2023 4:28:18 PM Sign Date: 08/13/2023 4:28:18 PM Ordering Provider: BRITT JAMES [facility] ([place]) .ANATon 08-06-2023 YAMINI Pattern 1 Homogeneous Normal [facility]) Comment on above: Result Comment: At A ulan, an YAMINI titer of less than 160 is not considered suggestive of significant rheumatoid disease. If clinical suspicion is high, suggest repeat testing in 1-2 months. Performed By: #### C MP, GFR #### [address] [address] #### CPEP, INSLN #### [address] [address] YAMINI Titer 1 80 Normal [facility]) Comment on above: Performed By: #### C MP, GFR #### [place] [id number] [place], [place] [address] #### CPEP, INSLN #### [address] [address] ANAon 08-06-2023 YAMINI See Titer Normal Neg 40 [facility]) Comment on above: Result Comment: YAMINI Screen and Titer methodology is an immunofluorescent technique utilizing Hep2 Substrate. Performed By: #### C MP, GFR #### [place] [id number] [place], [place] [address] #### CPEP, INSLN #### [facility] [address] [place] [id number] MRI SPINE LUMBAR W/O CONTRAS Ton 08-06-2023 MRI SPINE LUMBAR W/O CONTRAST ORIGINAL EXAMINATION: MRI OF THE LUMBAR SPINE WITHOUT CONTRAST, 08/06/2023 1:12 pm TECHNIQUE: Multiplanar multisequence MRI of the lumbar spine was performed without the administration of intravenous contrast. COMPARISON: CT thorax with contrast 11/04/2021. 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 Overall lumbar lordosis is maintained. Approximately 3 mm rim of retrolisthesis of L2 on L3 and 7 mm of retrolisthesis L3 on L4 is appreciated. Minimal retrolisthesis of L4 on L5. Grade 1 anterolisthesis of L5 on S1. There is redemonstration of a T12 compression deformity, visualized on prior CT chest 11/04/2021. Changes are noted status post L4-5 posterior decompression. SPINAL CORD: The conus terminates normally at the level of L1. No abnormal signal is appreciated. The cauda equina is unremarkable. SOFT TISSUES: Prevertebral and paraspinal soft tissues are unremarkable. T12-L1: Asymmetric left disc protrusion resulting in mild effacement of the thecal sac. The bilateral neural foramina are patent. L1-L2: Mild diffuse disc bulge resulting in mild narrowing of the spinal canal. Ligamentum flavum hypertrophy. No neural foraminal stenosis bilaterally. L2-L3: Minimal bulge and posterior disc uncovering is appreciated with ligamentum flavum hypertrophy resulting in moderate narrowing of the spinal canal. Mild facet arthropathy bilaterally resulting and right mild neural foraminal stenosis. L3-L4: Listhesis and posterior disc osteophyte complex are appreciated with moderate narrowing of the spinal canal. Facet hypertrophy is appreciated with severe bilateral neural foraminal stenoses. L4-L5: A diffuse disc bulge is appreciated without significant narrowing of the thecal sac. Facet hypertrophy is appreciated with severe bilateral neural foraminal stenoses. L5-S1: Posterior disc uncovering is appreciated without significant narrowing of the thecal sac. Moderate to severe bilateral neural foraminal stenoses are appreciated in the setting of facet hypertrophy. IMPRESSION: 1. Stable chronic L1 compression deformity, unchanged since at least 11/04/2021. 2. Advanced multilevel degenerative changes and listhesis without significant narrowing of the thecal sac or cauda equina compression. Severe neural foraminal stenoses at L3-4 and L4-5 bilaterally. Moderate to severe at L5-S1. Interpreted by: Eduardo Christina Preliminary Report By: Eduardo Christina Electronically signed By Eduardo Christina Dictated Date: 08/06/2023 3:41:04 PM Prelim Date: 08/06/2023 3:52:03 PM Sign Date: 08/06/2023 3:52:03 PM Ordering Provider: BRITT Fry [facility] ([place]) RFon 08-05-2023 Rheumatoid Factor <6.0 Normal <=5.9 [facility]) Comment on above: Result Comment: RF I gM Antibody by Enzyme Immunoassay: Negative < or = 6 Positive > 6 A positive result indicates the presence of RF antibodies and suggests the possibility of rheumatoid arthritis. A negative result indicates no RF IgM antibody or levels below the negative cut-off of the assay. Results of this assay should be used in conjunction with clinical findings and other serological tests. These results were obtained with the Or[employer] QUANTA Lite RF IgM CHAZ. RF IgM values obtained with different manufacturers' assay methods may not be used interchangeably. The magnitude of the reported IgM levels cannot be correlated to an endpoint titer. Performed By: #### C MP, GFR #### [address] [address] #### CPEP, INSLN #### [address] [address] PTHon 08-04-2023 PTH, Intact 31.1 pg/mL Normal 18.5-88.0 [facility]) Comment on above: Performed By: #### C MP, GFR #### [place] [id number] #### CPEP, INSLN #### [address] [address] .Auto Diffon 08-03-2023 Basophil, Absolute 0.0 10 3/mcL Normal 0.0-0.2 [facility] ([place]) Comment on above: Performed By: #### C MP, GFR #### [place] [id number] #### CPEP, INSLN #### [address] [address] Basophils/100 WBC (Bld) 0.4 % Normal 0.0-2.5 [facility] ([place]) Comment on above: Performed By: #### C MP, GFR #### [place] [id number] #### CPEP, INSLN #### [address] [address] Eosinophil, Absolute 0.0 10 3/mcL Normal 0.0-0.4 [facility] ([place]) Comment on above: Performed By: #### C MP, GFR #### [place] [id number] #### CPEP, INSLN #### [address] [address] Eosinophils/100 WBC (Bld) 0.6 % Normal 0.0-7.0 [facility] ([place]) Comment on above: Performed By: #### C MP, GFR #### [place] [id number] #### CPEP, INSLN #### [address] [address] Lymphocyte, Absolute 1.1 10 3/mcL Normal 0.8-3.9 [facility] ([place]) Comment on above: Performed By: #### C MP, GFR #### [place] [id number] #### CPEP, INSLN #### [address] [address] Lymphocytes/100 WBC (Bld) 12.5 % Normal 10.0-50.0 [facility] ([place]) Comment on above: Performed By: #### C MP, GFR #### [address] [address] #### CPEP, INSLN #### [address] [address] Monocyte, Absolute 0.7 10 3/mcL Normal 0.2-1.0 [facility] ([place]) Comment on above: Performed By: #### C MP, GFR #### [address] [address] #### CPEP, INSLN #### [address] [address] Monocytes/100 WBC (Bld) 8.3 % Normal 1.7-13.0 [facility] ([place]) Comment on above: Performed By: #### C MP, GFR #### [address] [address] #### CPEP, INSLN #### [address] [address] Neutrophils/100 WBC (Bld) 78.2 % Normal 37.0-80.0 [facility] ([place]) Comment on above: Performed By: #### C MP, GFR #### [address] [address] #### CPEP, INSLN #### [address] [address] .GFRon 08-03-2023 GFR 97 ml/min/1.73sqm Normal [facility] ([place]) Comment on above: Result Comment: GFR Population mean for , Non- Americans Ages 20-29 = 116 mL/min/1.73 sq.m. Ages 30-39 = 107 mL/min/1.73 sq.m. Ages 40-49 = 99 mL/min/1.73 sq.m. Ages 50-59 = 93 mL/min/1.73 sq.m. Ages 60-69 = 85 mL/min/1.73 sq.m. Ages 70+ = 75 mL/min/1.73 sq.m. Chronic Kidney Disease: Less than 60 mL/min/1.73 square meters End Stage Renal Disease: Less than 15 mL/min/1.73 square meters Performed By: #### C MP, GFR #### [address] [address] #### CPEP, INSLN #### [address] [address] GFR Non- 80 ml/min/1.73sqm Normal [facility] ([place]) Comment on above: Result Comment: GFR Population mean for , Non- Americans Ages 20-29 = 116 mL/min/1.73 sq.m. Ages 30-39 = 107 mL/min/1.73 sq.m. Ages 40-49 = 99 mL/min/1.73 sq.m. Ages 50-59 = 93 mL/min/1.73 sq.m. Ages 60-69 = 85 mL/min/1.73 sq.m. Ages 70+ = 75 mL/min/1.73 sq.m. Chronic Kidney Disease: Less than 60 mL/min/1.73 square meters End Stage Renal Disease: Less than 15 mL/min/1.73 square meters Performed By: #### C MP, GFR #### [address] [address] #### CPEP, INSLN #### [address] [address] .NEUABSon 08-03-2023 Neutrophil, Absolute 6.8 10 3/mcL High 2.9-6.2 [facility] ([place]) Comment on above: Performed By: #### C MP, GFR #### [address] [address] #### CPEP, INSLN #### [address] [address] BMPon 08-03-2023 BUN/Creatinine Ratio 24 ratio Normal 7-27 [facility] ([place]) Comment on above: Performed By: #### C MP, GFR #### [address] [address] #### CPEP, INSLN #### [address] [address] Calcium [Mass/Vol] 8.8 mg/dL Normal 8.4-10.2 [facility] ([place]) Comment on above: Performed By: #### C MP, GFR #### [place] [id number] #### CPEP, INSLN #### [address] [address] Chloride [Moles/Vol] 105 mmol/L Normal 98-107 [facility] ([place]) Comment on above: Performed By: #### C MP, GFR #### [place] [id number] #### CPEP, INSLN #### [address] [address] CO2 [Moles/Vol] 26 mmol/L Normal 23-31 [facility] ([place]) Comment on above: Performed By: #### C MP, GFR #### [place] [id number] #### CPEP, INSLN #### [address] [address] Creatinine [Mass/Vol] 0.71 mg/dL Normal 0.55-1.02 [facility] ([place]) Comment on above: Performed By: #### C MP, GFR #### [place] [id number] #### CPEP, INSLN #### [address] [address] Electrolyte Balance 9.0 mEq/L Normal 4.0-15.0 [facility] ([place]) Comment on above: Performed By: #### C MP, GFR #### [place] [id number] #### CPEP, INSLN #### [address] [address] Glucose [Mass/Vol] 155 mg/dL High 83-110 [facility] ([place]) Comment on above: Performed By: #### C MP, GFR #### [address] [address] #### CPEP, INSLN #### [address] [address] Potassium [Moles/Vol] 3.6 mmol/L Normal 3.5-5.1 [facility] ([place]) Comment on above: Performed By: #### C MP, GFR #### [address] [address] #### CPEP, INSLN #### [address] [address] Sodium [Moles/Vol] 140 mmol/L Normal 136-145 [facility] ([place]) Comment on above: Performed By: #### C MP, GFR #### [place] [address] #### CPEP, INSLN #### [address] [address] Urea nitrogen [Mass/Vol] 17 mg/dL Normal 7-18 [facility] ([place]) Comment on above: Performed By: #### C MP, GFR #### [address] [address] #### CPEP, INSLN #### [address] [address] CBCon 08-03-2023 Erythrocyte distribution width (RBC) [Ratio] 16.5 % High 11.5-14.5 [facility] ([place]) Comment on above: Performed By: #### C MP, GFR #### [address] [address] #### CPEP, INSLN #### [address] [address] Hematocrit (Bld) [Volume fraction] 41.7 % Normal 37.0-47.0 [facility] ([place]) Comment on above: Performed By: #### C MP, GFR #### [place] [id number] #### CPEP, INSLN #### [place] [address] Hgb 14.3 G/dL Normal 12.0-16.0 [facility] ([place]) Comment on above: Performed By: #### C MP, GFR #### [place] [address] #### CPEP, INSLN #### [place] [address] MCH (RBC) [Entitic mass] 30.7 pg Normal 27.0-31.2 [facility] ([place]) Comment on above: Performed By: #### C MP, GFR #### [place] [address] #### CPEP, INSLN #### [place] [address] MCHC 34.2 G/dL Normal 33.0-37.0 [facility] ([place]) Comment on above: Performed By: #### C MP, GFR #### [place] [address] #### CPEP, INSLN #### [place] [address] MCV (RBC) [Entitic vol] 89.8 fL Normal 80.0-94.0 [facility] ([place]) Comment on above: Performed By: #### C MP, GFR #### [place] [address] #### CPEP, INSLN #### [place] [address] Platelet 192 10 3/mcL Normal 130-400 [facility] ([place]) Comment on above: Performed By: #### C MP, GFR #### [place] [address] #### CPEP, INSLN #### [place] [address] Platelet mean volume (Bld) [Entitic vol] 8.4 fL Normal 7.4-10.4 [facility] ([place]) Comment on above: Performed By: #### C MP, GFR #### [place] [address] #### CPEP, INSLN #### [place] [address] RBC 4.64 10 6/mcL Normal 4.20-5.40 [facility] ([place]) Comment on above: Performed By: #### C MP, GFR #### [place] [address] #### CPEP, INSLN #### [place] [address] WBC 8.6 10 3/mcL Normal 4.6-10.8 [facility] ([place]) Comment on above: Performed By: #### C MP, GFR #### [place] [address] #### CPEP, INSLN #### [place] [address] CRPon 08-03-2023 C-Reactive Protein 0.1 mg/dL Normal 0.0-0.3 [facility] ([place]) Comment on above: Performed By: #### C MP, GFR #### [place] [address] #### CPEP, INSLN #### [place] [address] ESRon 08-03-2023 Erythrocyte Sed Rate 15 mm/hr Normal 0-30 [facility] ([place]) Comment on above: Performed By: #### C MP, GFR #### [place] [address] #### CPEP, INSLN #### [place] [address] LABORATORYOrdered By: SYSTEM SYSTEM on 08-03-2023 Basophil, Absolute 0.0 103/mcL Normal 0.0 - 0.2 10^3/mcL AO Workflow SS Basophils/100 WBC (Bld) 0.4 % Normal 0.0 - 2.5 % AO Workflow SS Calcium [Mass/Vol] 8.8 mg/dL Normal 8.4 - 10. 2 mg/dL AO ADM SS Chloride [Moles/Vol] 105 mmol/L Normal 98 - 10 7 mmol/L AO ADM SS CO2 [Moles/Vol] 26 mmol/L Normal 23 - 31 mmol/L AO ADM SS Creatinine [Mass/Vol] 0.71 mg/dL Normal 0.55 - 1.02 mg/dL AO ADM SS CRP [Mass/Vol] 0.1 mg/dL Normal 0.0 - 0.3 mg/dL AO ADM SS Electrolyte Balance 9.0 mEq/L Normal 4.0 - 15 .0 mEq/L AO ADM SS Eosinophil, Absolute 0.0 103/mcL Normal 0.0 - 0 .4 10^3/mcL AO Workflow SS Eosinophils/100 WBC (Bld) 0.6 % Normal 0.0 - 7.0 % AO Workflow SS Erythrocyte distribution width (RBC) [Ratio] 16.5 % High 11.5 - 14.5 % AO Workflow SS GFR/1.73 sq M.predicted among blacks MDRD (S/P/Bld) [Vol rate/Area] 97 ml/min/1.73sqm Invalid Interpretation Code AO Chemistry S Comment on above: Interpretive Data: GFR Population mean for , Non- Americans Ages 20-29 = 116 mL/min/1.73 sq.m. Ages 30-39 = 107 mL/min/1.73 sq.m. Ages 40-49 = 99 mL/min/1.73 sq.m. Ages 50-59 = 93 mL/min/1.73 sq.m. Ages 60-69 = 85 mL/min/1.73 sq.m. Ages 70+ = 75 mL/min/1.73 sq.m. Chronic Kidney Disease: Less than 60 mL/min/1.73 square meters End Stage Renal Disease: Less than 15 mL/min/1.73 square meters GFR/1.73 sq M.predicted among non-blacks MDRD (S/P/Bld) [Vol rate/Area] 80 ml/min/1.73sqm Invalid Interpretation Code AO Chemistry S Comment on above: Interpretive Data: GFR Population mean for , Non- Americans Ages 20-29 = 116 mL/min/1.73 sq.m. Ages 30-39 = 107 mL/min/1.73 sq.m. Ages 40-49 = 99 mL/min/1.73 sq.m. Ages 50-59 = 93 mL/min/1.73 sq.m. Ages 60-69 = 85 mL/min/1.73 sq.m. Ages 70+ = 75 mL/min/1.73 sq.m. Chronic Kidney Disease: Less than 60 mL/min/1.73 square meters End Stage Renal Disease: Less than 15 mL/min/1.73 square meters Glucose [Mass/Vol] 155 mg/dL High 83 - 110 mg/dL AO ADM SS Hematocrit (Bld) [Volume fraction] 41.7 % Normal 37.0 - 47.0 % AO Workflow SS Hemoglobin (Bld) [Mass/Vol] 14.3 G/dL Normal 12.0 - 16.0 G/dL AO Workflow SS Lymphocyte, Absolute 1.1 103/mcL Normal 0.8 - 3 .9 10^3/mcL AO Workflow SS Lymphocytes/100 WBC (Bld) 12.5 % Normal 10.0 - 50.0 % AO Workflow SS MCH (RBC) [Entitic mass] 30.7 pg Normal 27.0 - 31.2 pg AO Workflow SS MCHC 34.2 G/dL Normal 33.0 - 37.0 G/dL AO Workflow SS MCV (RBC) [Entitic vol] 89.8 fL Normal 80.0 - 94.0 fL AO Workflow SS Monocyte, Absolute 0.7 103/mcL Normal 0.2 - 1.0 10^3/mcL AO Workflow SS Monocytes/100 WBC (Bld) 8.3 % Normal 1.7 - 13.0 % AO Workflow SS Natriuretic peptide.B prohormone N-Terminal [Mass/Vol] 636 pg/mL High 0 - 450 pg/mL AO ADM SS Comment on above: Interpretive Data: N T-proBNP results of less than 300 pg/mL effectively rules out acute congestive heart failure with 99% negative predictive value. Neutrophil, Absolute 6.8 103/mcL High 2.9 - 6 .2 10^3/mcL AO Workflow SS Neutrophils/100 WBC (Bld) 78.2 % Normal 37.0 - 80.0 % AO Workflow SS Parathyrin.intact [Mass/Vol] 31.1 pg/mL Normal 18.5 - 88.0 pg/mL AH ADM SS Phosphate [Mass/Vol] 3.6 mg/dL Normal 2.3 - 4 .1 mg/dL AO ADM SS Platelet mean volume (Bld) [Entitic vol] 8.4 fL Normal 7.4 - 10.4 fL AO Workflow SS Platelets (Bld) [#/Vol] 192 103/mcL Normal 130 - 400 10^3/mcL AO Workflow SS Potassium [Moles/Vol] 3.6 mmol/L Normal 3.5 - 5.1 mmol/L AO ADM SS RBC (Bld) [#/Vol] 4.64 106/mcL Normal 4.20 - 5.4 0 10^6/mcL AO Workflow SS Sodium [Moles/Vol] 140 mmol/L Normal 136 - 145 mmol/L AO ADM SS Urea nitrogen [Mass/Vol] 17 mg/dL Normal 7 - 18 mg/dL AO ADM SS Urea nitrogen/Creatinine [Mass ratio] 24 ratio Normal 7 - 27 ratio AO ADM SS WBC (Bld) [#/Vol] 8.6 103/mcL Normal 4.6 - 10.8 10^3/mcL AO Workflow SS LABORATORYOrdered By: Reggie soliz on 08-03-2023 ESR Photometric method (Bld) [Velocity] 15 mm/hr Normal 0 - 30 mm/hr AO Man Heme SS LABORATORYOrdered By: Babar Elizondo on 08-03-2023 Nuclear Ab IF (S) [Titer] 80 (08/03/23 1:35 PM) Normal AH Man Viro/Sero SS Nuclear Ab IF Ql (S) See Titer 2 (08/03/23 1:35 PM) Normal AH Man Viro/Sero SS Comment on above: Interpretive Data: A NA Screen and Titer methodology is an immunofluorescent technique utilizing Hep2 Substrate. Nuclear Ab pattern IF (S) [Interp] Homogeneous 4 (08/03/23 1:35 PM) Normal AH Man Viro/Sero SS Comment on above: Result Comment: At A ultman, an YAMINI titer of less than 160 is not considered suggestive of significant rheumatoid disease. If clinical suspicion is high, suggest repeat testing in 1-2 months. LABORATORYOrdered By: Satya French on 08-03-2023 Rheumatoid factor IgM IA Qn (S) 1 Normal <=5.9 AH Auto Viro/Sero SS Comment on above: Interpretive Data: R F IgM Antibody by Enzyme Immunoassay: Negative < or = 6 Positive > 6 A positive result indicates the presence of RF antibodies and suggests the possibility of rheumatoid arthritis. A negative result indicates no RF IgM antibody or levels below the negative cut-off of the assay. Results of this assay should be used in conjunction with clinical findings and other serological tests. These results were obtained with the [employer] Makoondie RF IgM CHAZ. RF IgM values obtained with different manufacturers' assay methods may not be used interchangeably. The magnitude of the reported IgM levels cannot be correlated to an endpoint titer. PBNPon 08-03-2023 Natriuretic peptide B (Bld) [Mass/Vol] 636 pg/mL High 0-450 [facility] ([place]) Comment on above: Result Comment: NT-p roBNP results of less than 300 pg/mL effectively rules out acute congestive heart failure with 99% negative predictive value. Performed By: #### C MP, GFR #### [place] [address] #### CPEP, INSLN #### [place] [address] PHOSon 08-03-2023 Phosphate [Mass/Vol] 3.6 mg/dL Normal 2.3-4.1 [facility] ([place]) Comment on above: Performed By: #### C MP, GFR #### [place] [id number] #### CPEP, INSLN #### [place] [address] .GFRon 07-02-2023 GFR 65 ml/min/1.73sqm Normal [facility] ([place]) Comment on above: Result Comment: GFR Population mean for , Non- Americans Ages 20-29 = 116 mL/min/1.73 sq.m. Ages 30-39 = 107 mL/min/1.73 sq.m. Ages 40-49 = 99 mL/min/1.73 sq.m. Ages 50-59 = 93 mL/min/1.73 sq.m. Ages 60-69 = 85 mL/min/1.73 sq.m. Ages 70+ = 75 mL/min/1.73 sq.m. Chronic Kidney Disease: Less than 60 mL/min/1.73 square meters End Stage Renal Disease: Less than 15 mL/min/1.73 square meters Performed By: #### C MP, GFR #### [address] [address] #### CPEP, INSLN #### [address] [address] GFR Non- 53 ml/min/1.73sqm Normal [facility] ([place]) Comment on above: Result Comment: GFR Population mean for , Non- Americans Ages 20-29 = 116 mL/min/1.73 sq.m. Ages 30-39 = 107 mL/min/1.73 sq.m. Ages 40-49 = 99 mL/min/1.73 sq.m. Ages 50-59 = 93 mL/min/1.73 sq.m. Ages 60-69 = 85 mL/min/1.73 sq.m. Ages 70+ = 75 mL/min/1.73 sq.m. Chronic Kidney Disease: Less than 60 mL/min/1.73 square meters End Stage Renal Disease: Less than 15 mL/min/1.73 square meters Performed By: #### C MP, GFR #### [address] [address] #### CPEP, INSLN #### [place] [id number] [facility] HbA1c (Bld) [Mass fraction] 7.5 % High 4.3-6.4 [facility] ([place]) Comment on above: Performed By: #### C MP, GFR #### [address] [address] #### CPEP, INSLN #### [address] [address] CMPon 07-02-2023 Albumin Level 3.5 G/dL Normal 3.4-4.8 [facility] ([place]) Comment on above: Performed By: #### C MP, GFR #### [place] [id number] #### CPEP, INSLN #### [address] [address] Albumin/Globulin [Mass ratio] 1.0 {ratio} Low 1.1-2.5 [facility] ([place]) Comment on above: Performed By: #### C MP, GFR #### [place] [address] #### CPEP, INSLN #### [address] [address] ALP [Catalytic activity/Vol] 70 U/L Normal 40-135 [facility] ([place]) Comment on above: Performed By: #### C MP, GFR #### [place] [address] #### CPEP, INSLN #### [address] [address] ALT [Catalytic activity/Vol] 42 U/L Normal 14-59 [facility] ([place]) Comment on above: Performed By: #### C MP, GFR #### [place] [address] #### CPEP, INSLN #### [address] [address] AST [Catalytic activity/Vol] 28 U/L Normal 10-40 [facility] ([place]) Comment on above: Performed By: #### C MP, GFR #### [place] [address] #### CPEP, INSLN #### [address] [address] Bili Total 0.5 mg/dL Normal 0.2-1.0 [facility] ([place]) Comment on above: Result Comment: Use of this assay is not recommended for patients undergoing treatment with eltrombopag due to the potential for falsely elevated results. Performed By: #### C MP, GFR #### [place] [address] #### CPEP, INSLN #### [address] [address] BUN/Creatinine Ratio 18 ratio Normal 7-27 [facility] ([place]) Comment on above: Performed By: #### C MP, GFR #### [address] [address] #### CPEP, INSLN #### [address] [address] Calcium [Mass/Vol] 9.3 mg/dL Normal 8.4-10.2 [facility] ([place]) Comment on above: Performed By: #### C MP, GFR #### [address] [address] #### CPEP, INSLN #### [address] [address] Chloride [Moles/Vol] 104 mmol/L Normal 98-107 [facility] ([place]) Comment on above: Performed By: #### C MP, GFR #### [address] [address] #### CPEP, INSLN #### [address] [address] CO2 [Moles/Vol] 29 mmol/L Normal 23-31 [facility] ([place]) Comment on above: Performed By: #### C MP, GFR #### [address] [address] #### CPEP, INSLN #### [address] [address] Creatinine [Mass/Vol] 1.01 mg/dL Normal 0.55-1.02 [facility] ([place]) Comment on above: Performed By: #### C MP, GFR #### [address] [address] #### CPEP, INSLN #### [address] [address] Electrolyte Balance 12.0 mEq/L Normal 4.0-15.0 [facility] ([place]) Comment on above: Performed By: #### C MP, GFR #### [address] [address] #### CPEP, INSLN #### [address] [address] Globulin 3.5 G/dL Normal [facility] ([place]) Comment on above: Performed By: #### C MP, GFR #### [address] [address] #### CPEP, INSLN #### [address] [address] Glucose [Mass/Vol] 176 mg/dL High 83-110 [facility] ([place] Comment on above: Performed By: #### C MP, GFR #### [address] [address] #### CPEP, INSLN #### [address] [address] Potassium [Moles/Vol] 4.2 mmol/L Normal 3.5-5.1 [facility] ([place] Comment on above: Performed By: #### C MP, GFR #### [address] [address] #### CPEP, INSLN #### [address] [address] Sodium [Moles/Vol] 145 mmol/L Normal 136-145 [facility] ([place] Comment on above: Performed By: #### C MP, GFR #### [address] [address] #### CPEP, INSLN #### [address] [address] Total Protein 7.0 G/dL Normal 6.4-8.2 [facility] ([place] Comment on above: Performed By: #### C MP, GFR #### [address] [address] #### CPEP, INSLN #### [address] [address] Urea nitrogen [Mass/Vol] 18 mg/dL Normal 7-18 [facility] ([place] Comment on above: Performed By: #### C MP, GFR #### [address] [address] #### CPEP, INSLN #### [address] [address] FT3on 07-02-2023 Free T3 [Mass/Vol] 1.75 pg/mL Low 2.30-4.00 [facility] ([place]) Comment on above: Performed By: #### C MP, GFR #### [address] [address] #### CPEP, INSLN #### [place] [address] FT4on 07-02-2023 Free T4 [Mass/Vol] 1.19 ng/dL Normal 0.76-1.46 [facility] ([place] Comment on above: Performed By: #### C MP, GFR #### [place] [id number] #### CPEP, INSLN #### [place] [address] LABORATORYOrdered By: SYSTEM SYSTEM on 07-02-2023 25-hydroxyvitamin D3 [Mass/Vol] 77.1 ng/mL Invalid Interpretation Code AO ADM SS Comment on above: Interpretive Data: I nterpretive Values Based on Total 25(OH) Vitamin D: Deficient <20 ng/mL Insufficient 20 - <30 ng/mL Sufficient 30-100 ng/mL Albumin BCP dye [Mass/Vol] 3.5 G/dL Normal 3.4 - 4.8 G/dL AO ADM SS Albumin/Globulin [Mass ratio] 1.0 {ratio} Low 1.1 - 2.5 ratio AO ADM SS ALP [Catalytic activity/Vol] 70 U/L Normal 40 - 135 U/L AO ADM SS ALT With P-5'-P [Catalytic activity/Vol] 42 U/L Normal 14 - 59 U/L AO ADM SS AST With P-5'-P [Catalytic activity/Vol] 28 U/L Normal 10 - 40 U/L AO ADM SS Bilirubin [Mass/Vol] 0.5 mg/dL Normal 0.2 - 1 .0 mg/dL AO ADM SS Comment on above: Interpretive Data: U se of this assay is not recommended for patients undergoing treatment with eltrombopag due to the potential for falsely elevated results. Calcium [Mass/Vol] 9.3 mg/dL Normal 8.4 - 10. 2 mg/dL AO ADM SS Chloride [Moles/Vol] 104 mmol/L Normal 98 - 10 7 mmol/L AO ADM SS CO2 [Moles/Vol] 29 mmol/L Normal 23 - 31 mmol/L AO ADM SS Creatinine [Mass/Vol] 1.01 mg/dL Normal 0.55 - 1.02 mg/dL AO ADM SS Electrolyte Balance 12.0 mEq/L Normal 4.0 - 15 .0 mEq/L AO ADM SS Free T3 [Mass/Vol] 1.75 pg/mL Low 2.30 - 4. 00 pg/mL AO ADM SS Free T4 [Mass/Vol] 1.19 ng/dL Normal 0.76 - 1. 46 ng/dL AO ADM SS GFR/1.73 sq M.predicted among blacks MDRD (S/P/Bld) [Vol rate/Area] 65 ml/min/1.73sqm Invalid Interpretation Code AO Chemistry S Comment on above: Interpretive Data: GFR Population mean for , Non- Americans Ages 20-29 = 116 mL/min/1.73 sq.m. Ages 30-39 = 107 mL/min/1.73 sq.m. Ages 40-49 = 99 mL/min/1.73 sq.m. Ages 50-59 = 93 mL/min/1.73 sq.m. Ages 60-69 = 85 mL/min/1.73 sq.m. Ages 70+ = 75 mL/min/1.73 sq.m. Chronic Kidney Disease: Less than 60 mL/min/1.73 square meters End Stage Renal Disease: Less than 15 mL/min/1.73 square meters GFR/1.73 sq M.predicted among non-blacks MDRD (S/P/Bld) [Vol rate/Area] 53 ml/min/1.73sqm Invalid Interpretation Code AO Chemistry S Comment on above: Interpretive Data: GFR Population mean for , Non- Americans Ages 20-29 = 116 mL/min/1.73 sq.m. Ages 30-39 = 107 mL/min/1.73 sq.m. Ages 40-49 = 99 mL/min/1.73 sq.m. Ages 50-59 = 93 mL/min/1.73 sq.m. Ages 60-69 = 85 mL/min/1.73 sq.m. Ages 70+ = 75 mL/min/1.73 sq.m. Chronic Kidney Disease: Less than 60 mL/min/1.73 square meters End Stage Renal Disease: Less than 15 mL/min/1.73 square meters Globulin 3.5 G/dL Invalid Interpretation Code AO ADM SS Glucose [Mass/Vol] 176 mg/dL High 83 - 110 mg/dL AO ADM SS HbA1c (Bld) [Mass fraction] 7.5 % High 4.3 - 6.4 % AO ADM SS Potassium [Moles/Vol] 4.2 mmol/L Normal 3.5 - 5.1 mmol/L AO ADM SS Protein [Mass/Vol] 7.0 G/dL Normal 6.4 - 8.2 G/dL AO ADM SS Sodium [Moles/Vol] 145 mmol/L Normal 136 - 145 mmol/L AO ADM SS TSH Qn 3.69 m[IU]/L Normal 0.36 - 3.74 mcIU/mL AO ADM SS Urea nitrogen [Mass/Vol] 18 mg/dL Normal 7 - 18 mg/dL AO ADM SS Urea nitrogen/Creatinine [Mass ratio] 18 ratio Normal 7 - 27 ratio AO ADM SS LABORATORYOrdered By: Kellen Barber on 07-02-2023 Cholesterol [Mass/Vol] 167 mg/dL Normal 0 - 2 00 mg/dL AO ADM SS Comment on above: Interpretive Data: C holesterol Reference Interval: Less than 200 Desirable 200-239 Borderline high risk 240 and above High risk Cholesterol in HDL [Mass/Vol] 74 mg/dL High 40 - 60 mg/dL AO ADM SS Cholesterol in LDL [Mass/Vol] 77 mg/dL Normal 0 - 130 mg/dL AO ADM SS Triglyceride [Mass/Vol] 78 mg/dL Normal 0 - 150 mg/dL AO ADM SS Comment on above: Interpretive Data: T riglyceride Reference Interval: Less than 150 Normal 150-199 Borderline high risk 200-499 High risk 500 or higher Very high risk LIPIDon 07-02-2023 Cholesterol [Mass/Vol] 167 mg/dL Normal 0-200 [facility] ([place]) Comment on above: Result Comment: Chol esterol Reference Interval: Less than 200 Desirable 200-239 Borderline high risk 240 and above High risk Performed By: #### C MP, GFR #### [address] [address] #### CPEP, INSLN #### [address] [address] Cholesterol in HDL [Mass/Vol] 74 mg/dL High 40-60 [facility] ([place]) Comment on above: Performed By: #### C MP, GFR #### [place] [address] #### CPEP, INSLN #### [address] [address] Cholesterol in LDL [Mass/Vol] 77 mg/dL Normal 0-130 [facility] ([place]) Comment on above: Performed By: #### C MP, GFR #### [place] [address] #### CPEP, INSLN #### [address] [address] Triglyceride [Mass/Vol] 78 mg/dL Normal 0-150 [facility] ([place]) Comment on above: Result Comment: Trig lyceride Reference Interval: Less than 150 Normal 150-199 Borderline high risk 200-499 High risk 500 or higher Very high risk Performed By: #### C MP, GFR #### [place] [address] #### CPEP, INSLN #### [address] [address] TSHon 07-02-2023 TSH Qn 3.69 m[IU]/L Normal 0.36-3.74 [facility] ([place]) Comment on above: Performed By: #### C MP, GFR #### [place] [address] #### CPEP, INSLN #### [address] [address] VIDHon 07-02-2023 Vit. D 25-Hydroxy 77.1 ng/mL Normal [facility] ([place]) Comment on above: Result Comment: Inte rpretive Values Based on Total 25(OH) Vitamin D: Deficient <20 ng/mL Insufficient 20 - <30 ng/mL Sufficient 30-100 ng/mL Performed By: #### C MP, GFR #### [address] [address] #### CPEP, INSLN #### [facility] [address] [place] [id number] LABORATORYOrdered By: Gayla Driscoll on 05-22-2023 INR Coag (PPP) [Relative time] 1.1 {INR} Invalid Interpretation Code AO [facility] SS Comment on above: Interpretive Data: T chaim [employer] (CHEST, 1991, 102:312S-25S) recommended therapeutic range for oral anticoagulant therapy is: LOW RISK: Prophylaxis of venous thrombosis INR: 2.0-3.0 Treatment of pulmonary embolism 2.0-3.0 Prevention of systemic embolism 2.0-3.0 HIGH RISK: Mechanical prosthetic valves 2.5-3.5 PT Coag (PPP) [Time] 13.0 s Normal 9.0 - 1 4.2 seconds AO [facility]oHub SS PROon 05-22-2023 PT Coag (PPP) [Time] 13.0 s Normal 9.0-14.2 [facility] ([place]) Comment on above: Performed By: #### P RO #### [address] [address] PT International Ratio 1.1 Normal [facility] ([place]) Comment on above: Result Comment: [employer] [place] (CHEST, 1991, 102:312S-25S) recommended therapeutic range for oral anticoagulant therapy is: LOW RISK: Prophylaxis of venous thrombosis INR: 2.0-3.0 Treatment of pulmonary embolism 2.0-3.0 Prevention of systemic embolism 2.0-3.0 HIGH RISK: Mechanical prosthetic valves 2.5-3.5 Performed By: #### P RO #### [address] [address] Jay 03-15-2023 Thyroid Stim. Imm-Glob. <0.10 Normal <0.55 [facility] ([place]) Comment on above: Result Comment: Thyr oid Stimulating Immunoglobulin test is used as an aid in diagnosis of autoimmune hyperthyroidism especially in patients with Grave's orbitopathy and dermopathy. Low positive TSH receptor stimulating antibody levels may occasionally be found in patients with autoimmune hypothyroidism. Clinical correlation is required. Performed By: [facility] [address] [place] [address] Media Promoter: Shiraz Hart III, M.D. CLIA#: [id number] Performed By: #### P RO #### [place] [address] TSI Qualitative Negative Normal Negative [facility] ([place]) Comment on above: Result Comment: Perf ormed By: [facility] [place] [address] Media Promoter: Shiraz Hart III, M.D. CLIA#: [id number] Performed By: #### P RO #### [place] [address] FT3on 03-14-2023 Free T3 [Mass/Vol] 2.23 pg/mL Low 2.30-4.00 [facility] ([place]) Comment on above: Performed By: #### P RO #### [place] [address] FT4on 03-14-2023 Free T4 [Mass/Vol] 1.17 ng/dL Normal 0.76-1.46 [facility] ([place]) Comment on above: Performed By: #### P RO #### [place] [address] LABORATORYOrdered By: SYSTEM SYSTEM on 03-14-2023 Free T3 [Mass/Vol] 2.23 pg/mL Invalid Interpretation Code 2.30 - 4.00 pg/mL AO ADM SS Free T4 [Mass/Vol] 1.17 ng/dL Invalid Interpretation Code 0.76 - 1.46 ng/dL AO ADM SS Thyroglobulin Ab IA Qn 90 unit/mL Invalid Interpretation Code 15 - 60 unit/mL AH ADM SS Comment on above: Interpretive Data: * *Note - New Reference Range in effect 19 TPO Ab IA Qn 33 unit/mL Invalid Interpretation Code 0 - 60 unit/mL ADM SS Comment on above: Interpretive Data: * *Note - New Reference Range in effect 19 TSH Qn 3.62 m[IU]/L Invalid Interpretation Code 0.36 - 3.74 mcIU/mL AO ADM SS THYABon 03-14-2023 anti-Thyroid Peroxidase 33 units/ml Normal 0-60 [facility] ([place]) Comment on above: Result Comment: No te - New Reference Range in effect 19 Performed By: #### C MP, GFR #### [address] [address] #### CPEP, INSLN #### [place] [address] Thyroglobulin Ab 90 units/ml High 15-60 [facility] ([place]) Comment on above: Result Comment: No te - New Reference Range in effect 19 Performed By: #### C MP, GFR #### [address] [address] #### CPEP, INSLN #### [address] [address] TSHon 03-14-2023 TSH Qn 3.62 m[IU]/L Normal 0.36-3.74 [facility] ([place]) Comment on above: Performed By: #### C MP, GFR #### [place] [address] #### CPEP, INSLN #### [place] [address] LABORATORYOrdered By: Cindi Chavez on 02-27-2023 INR Coag (PPP) [Relative time] 1.2 {INR} Invalid Interpretation Code AO [facility]oHub SS Comment on above: Interpretive Data: Teodoro rucker [employer] (CHEST, 1991, 102:312S-25S) recommended therapeutic range for oral anticoagulant therapy is: LOW RISK: Prophylaxis of venous thrombosis INR: 2.0-3.0 Treatment of pulmonary embolism 2.0-3.0 Prevention of systemic embolism 2.0-3.0 HIGH RISK: Mechanical prosthetic valves 2.5-3.5 PT Coag (PPP) [Time] 13.2 s Invalid Interpretation Code 9.0 - 14.2 seconds AO [facility] SS PROon 02-27-2023 PT Coag (PPP) [Time] 13.2 s Normal 9.0-14.2 [facility] ([place]) Comment on above: Performed By: #### P RO #### [place] [id number] [place], [place] [address] PT International Ratio 1.2 Normal [facility] ([place]) Comment on above: Result Comment: [employer] [place] [employer] (CHEST, 1992, 102:312S-25S) recommended therapeutic range for oral anticoagulant therapy is: LOW RISK: Prophylaxis of venous thrombosis INR: 2.0-3.0 Treatment of pulmonary embolism 2.0-3.0 Prevention of systemic embolism 2.0-3.0 HIGH RISK: Mechanical prosthetic valves 2.5-3.5 Performed By: #### P RO #### [address] [address] LABORATORYOrdered By: SYSTEM SYSTEM on 12-08-2022 25-hydroxyvitamin D3 [Mass/Vol] 68.8 ng/mL Invalid Interpretation Code AO ADM SS Comment on above: Interpretive Data: I nterpretive Values Based on Total 25(OH) Vitamin D: Deficient <20 ng/mL Insufficient 20 - <30 ng/mL Sufficient 30-100 ng/mL Calcium [Mass/Vol] 8.9 mg/dL Invalid Interpretation Code 8.4 - 10.2 mg/dL AO ADM SS Chloride [Moles/Vol] 104 mmol/L Invalid Interpretation Code 98 - 107 mmol/L AO ADM SS CO2 [Moles/Vol] 26 mmol/L Invalid Interpretation Code 23 - 31 mmol/L AO ADM SS Creatinine [Mass/Vol] 0.98 mg/dL Invalid Interpretation Code 0.55 - 1.02 mg/dL AO ADM SS Electrolyte Balance 10.0 mEq/L Invalid Interpretation Code 4.0 - 15.0 mEq/L AO ADM SS GFR/1.73 sq M.predicted among blacks MDRD (S/P/Bld) [Vol rate/Area] 67 ml/min/1.73sqm Invalid Interpretation Code AO Chemistry S Comment on above: Interpretive Data: GFR Population mean for , Non- Americans Ages 20-29 = 116 mL/min/1.73 sq.m. Ages 30-39 = 107 mL/min/1.73 sq.m. Ages 40-49 = 99 mL/min/1.73 sq.m. Ages 50-59 = 93 mL/min/1.73 sq.m. Ages 60-69 = 85 mL/min/1.73 sq.m. Ages 70+ = 75 mL/min/1.73 sq.m. Chronic Kidney Disease: Less than 60 mL/min/1.73 square meters End Stage Renal Disease: Less than 15 mL/min/1.73 square meters GFR/1.73 sq M.predicted among non-blacks MDRD (S/P/Bld) [Vol rate/Area] 55 ml/min/1.73sqm Invalid Interpretation Code AO Chemistry S Comment on above: Interpretive Data: GFR Population mean for , Non- Americans Ages 20-29 = 116 mL/min/1.73 sq.m. Ages 30-39 = 107 mL/min/1.73 sq.m. Ages 40-49 = 99 mL/min/1.73 sq.m. Ages 50-59 = 93 mL/min/1.73 sq.m. Ages 60-69 = 85 mL/min/1.73 sq.m. Ages 70+ = 75 mL/min/1.73 sq.m. Chronic Kidney Disease: Less than 60 mL/min/1.73 square meters End Stage Renal Disease: Less than 15 mL/min/1.73 square meters Glucose [Mass/Vol] 204 mg/dL Invalid Interpretation Code 83 - 110 mg/dL AO ADM SS Potassium [Moles/Vol] 3.9 mmol/L Invalid Interpretation Code 3.5 - 5.1 mmol/L AO ADM SS Sodium [Moles/Vol] 140 mmol/L Invalid Interpretation Code 136 - 145 mmol/L AO ADM SS TSH Qn 3.80 m[IU]/L Invalid Interpretation Code 0.36 - 3.74 mcIU/mL AO ADM SS Urea nitrogen [Mass/Vol] 15 mg/dL Invalid Interpretation Code 7 - 18 mg/dL AO ADM SS Urea nitrogen/Creatinine [Mass ratio] 15 ratio Invalid Interpretation Code 7 - 27 ratio AO ADM SS LABORATORYOrdered By: Pinky Hankins on 08-31-2022 Albumin DL <= 20 mg/L (U) [Mass/Vol] 2465 mcg/dL Invalid Interpretation Code AO ADM SS Albumin/Creatinine DL <= 20 mg/L (U) [Mass ratio] 24 mcg/mg Invalid Interpretation Code 0 - 30 mcg/mg AO ADM SS Creatinine (U) [Mass/Vol] 101.5 mg/dL Invalid Interpretation Code 28.0 - 117.0 mg/dL AO ADM SS LABORATORYOrdered By: Shan Rosado on 08-22-2022 INR Coag (PPP) [Relative time] 1.2 {INR} Invalid Interpretation Code AO [facility] SS PT Coag (PPP) [Time] 14.2 s Invalid Interpretation Code 9.1 - 14.2 seconds AO [facility] SS Established Visit (Orthopaed ic Surgery)on 07-10-2022 Established Visit (Orthopaedic Surgery) Diagnoses/Problems Assessed DJD of shoulder (715.91) (M19.019) Provider Impressions Impression: Left shoulder osteoarthritis, but now significantly improved with fluoro-guided injection. She otherwise is improving nicely. This is all with regard to her left shoulder. Treatment Plan: I will see her back in the office as needed for evaluation and treatment of her left shoulder in the future. If she goes four to six months at a time, repeat injection can be ordered. Chief Complaint f/u left shoulder pain s/p FLuoro injection History of Present IllnessLeft shoulder fluoro-guided injection. She is 98% better in her own words. She does have to be careful with certain things. When she abducts, certain driving maneuvers lifting cause pain in the shoulder. Active Problems Problems Abdominal discomfort, epigastric (789.06) (R10.13) Allergic reaction, initial encounter (995.3) (T78.40XA) Ambulatory dysfunction (719.7) (R26.2) Anticoagulant long-term use (V58.61) (Z79.01) Anxiety (300.00) (F41.9) Atrial fibrillation (427.31) (I48.91) Back pain with radiation (724.5) (M54.9) Benign colonic polyp (211.3) (K63.5) BMI 35.0-35.9,adult (V85.35) (Z68.35) BMI 38.0-38.9,adult (V85.38) (Z68.38) Body mass index (BMI) of 36.0 to 36.9 in adult (V85.36) (Z68.36) Calcaneal spur, unspecified laterality (726.73) (M77.30) Carpal tunnel syndrome (354.0) (G56.00) Cellulitis (682.9) (L03.90) Chronic lumbar radiculopathy (724.4) (M54.16) Colon cancer screening (V76.51) (Z12.11) Compression fx, thoracic spine (805.2) (S22.000A) Conjunctivitis, bacterial (372.39,041.9) (H10.9) COPD, moderate (496) (J44.9) Cough (786.2) (R05.9) Current use of residential anticoagulation (V58.61) (Z79.01) Dehydration (276.51) (E86.0) Depression (311) (F32.A) Dizziness (780.4) (R42) DJD of shoulder (715.91) (M19.019) Dry eye (375.15) (H04.129) Encounter for Medicare annual wellness exam (V70.0) (Z00.00) Fatigue (780.79) (R53.83) Glaucoma screening (V80.1) (Z13.5) Hyperlipidemia (272.4) (E78.5) Hypoparathyroidism (252.1) (E20.9) Hypotension (458.9) (I95.9) Hypothyroidism (244.9) (E03.9) IBS (irritable bowel syndrome) (564.1) (K58.9) Left arm pain (729.5) (M79.602) Lipoma (214.9) (D17.9) Lumbar disc disease with radiculopathy (722.10,724.4) (M51.16) Mass of right breast on mammogram (611.72) (N63.10) Memory impairment (780.93) (R41.3) Memory loss (780.93) (R41.3) Menopausal disorder (627.9) (N95.9) Nail abnormality (703.9) (L60.9) Nephrolithiasis (592.0) (N20.0) Obesity (278.00) (E66.9) Obstructive sleep apnea (327.23) (G47.33) Osteoarthritis of right hip (715.95) (M16.11) Osteopenia (733.90) (M85.80) Osteoporosis screening (V82.81) (Z13.820) Pain, hip (719.45) (M25.559) Palpitations (785.1) (R00.2) Periorbital edema (782.3) (R60.0) Plantar fasciitis (728.71) (M72.2) Poison elba dermatitis (692.6) (L23.7) Postmenopausal status, age-related (V49.81) (Z78.0) Primary osteoarthritis of left shoulder (715.11) (M19.012) Pulmonary hypertension (416.8) (I27.20) Restrictive lung disease (518.89) (J98.4) Rotator cuff tendinitis (726.10) (M75.80) Sciatica (724.3) (M54.30) Screening for malignant neoplasms, colon Seasonal allergies (477.9) (J30.2) Severe headache (784.0) (R51.9) Shoulder pain (719.41) (M25.519) Sinusitis (473.9) (J32.9) Soft tissue mass (729.99) (M79.89) Swelling around both eyes (782.2) (R22.0) Tubular adenoma of colon (211.3) (D12.6) Type 2 diabetes mellitus (250.00) (E11.9) Umbilical hernia (553.1) (K42.9) Unsteady gait (781.2) (R26.81) UTI (urinary tract infection) (599.0) (N39.0) Vision changes (368.9) (H53.9) Visit for screening mammogram (V76.12) (Z12.31) Vitamin D deficiency (268.9) (E55.9) Past Medical History Problems History of Atrial fibrillation (427.31) (I48.91) History of Chronic obstructive pulmonary disease (496) (J44.9) History of Foot pain, unspecified laterality History of anxiety disorder (V11.8) (Z86.59) History of arthritis (V13.4) (Z87.39) History of asthma (V12.69) (Z87.09) History of backache (V13.59) (Z87.39) residual back pain History of diarrhea (V12.79) (Z87.898) History of fatigue (V13.89) (Z87.898) History of hyperlipidemia (V12.29) (Z86.39) History of hyperparathyroidism (V12.29) (Z86.39) History of osteopenia (V13.59) (Z87.39) Resolved Date: 28 Oct 2013 History of sleep apnea (V13.89) (Z86.69) History of Pulmonary hypertension (416.8) (I27.20) Surgical History Problems History of Congenital ASD Repair Percutaneous Transcatheter Closure ASD repair in 2010 History of Hip Replacement History of Hysterectomy at age 40 History of Lower Back Surgery low back surgery in 2009 History of Parathyroid Complete Parathyroidectomy parathyroidectomy in 2007 Family History Mother Family history of Biliary liver cirrhosis Family history of diabetes mellitus (V18.0) (Z83.3) Family history of Mother (more content not included)... Normal [facility] Blood Pressure Cuff Sizeon 0 07-07-2022 Adult depression screening assessment No [employer] Work Phone: Fall risk assessment a) No falls within the last year [employer] Work Phone: Tobacco use status CPHS b) No [employer] Phone: Blood Pressure Cuff Size Adult [employer]ku Phone: Office Visit (Internal Medic ine)on 07-07-2022 Follow-up visit Diagnoses/Problems Assessed Type 2 diabetes mellitus (250.00) (E11.9) Orders Type 2 diabetes mellitus Start: metFORMIN HCl ER 500 MG Oral Tablet Extended Release 24 Hour; Take 1 tablet daily Rx By: Kris Yung; Dispense: 90 Days ; #:90 Tablet; Refill: 1;For: Type 2 diabetes mellitus; LISBETH = N; Verified Transmission to [id number]; Last Updated By: Darrell Rudd; 07/07/2022 4:12:13 PM Start: OneTouch Delica Lancets 33G; test once a day Rx By: Kris Yung; Dispense: 0 Days ; #:1 X 100 Unit Box; Refill: 3;For: Type 2 diabetes mellitus; LISBETH = N; Print Rx Start: OneTouch Verio In Vitro Strip; TEST ONCE DAILY Rx By: Kris Yung; Dispense: 90 Days ; #:100 Strip; Refill: 3;For: Type 2 diabetes mellitus; LISBETH = N; Print Rx Start: OneTouch Verio w/Device Kit; USE DIRECTED Rx By: Kris Yung; Dispense: 0 Days ; #:1 Kit; Refill: 0;For: Type 2 diabetes mellitus; LISBETH = N; Print Rx Patient Discussion/Summary read on DM 2..printed info given, eye check annually monitor one --2 a week( one touch verio meter rx) (her can teach her) add metf er 500mg a day..gi side effects discussed lose weight follow 3 months Topics covered in visit included pathogenesis/ med options. monitoring. nutrition concepts...( 3 sensible meals spaced thru day..don?t drink calories.. avoid high processed carb / high fat foods) Provider Impressions recent type 2 DM diagnosis Chief Complaint DM concerns//referred by pcp History of Present IllnessThis is a patient I have seen in the past for her hypothyroidism. 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 She is referred today for recently diagnosed type 2 diabetes. Past medical history of A-fib sleep apnea COPD spinal stenosis, OA. a1c 7.7 at pcp about 2 months ago feels fine vision stable. lives c her creat 1.o ... 2021 has had some DM nutr instruction in past wt. stable eye dr. [facility] fam hx mother c DM at late stages of life has podia. dr perez ros: pos for polydipsia . some fatigue. no blurry vision has had recent ortho gluctd. shots. (may have raised sugars some) remains on coumadin bowels...ok no diarrhea feet ok Review of Systems Constitutional: feeling tired, but no fever. ENT: no sore throat and no hoarseness. Cardiovascular: lower extremity edema, but no chest pain. Respiratory: shortness of breath during exertion, but no cough. Gastrointestinal: no abdominal pain, no nausea and no diarrhea. Musculoskeletal: arthralgias and back pain. Neurological: no headache and no dizziness. Active Problems Problems Abdominal discomfort, epigastric (789.06) (R10.13) Allergic reaction, initial encounter (995.3) (T78.40XA) Ambulatory dysfunction (719.7) (R26.2) Anticoagulant long-term use (V58.61) (Z79.01) Anxiety (300.00) (F41.9) Atrial fibrillation (427.31) (I48.91) Back pain with radiation (724.5) (M54.9) Benign colonic polyp (211.3) (K63.5) BMI 35.0-35.9,adult (V85.35) (Z68.35) BMI 38.0-38.9,adult (V85.38) (Z68.38) Body mass index (BMI) of 36.0 to 36.9 in adult (V85.36) (Z68.36) Calcaneal spur, unspecified laterality (726.73) (M77.30) Carpal tunnel syndrome (354.0) (G56.00) Cellulitis (682.9) (L03.90) Chronic lumbar radiculopathy (724.4) (M54.16) Colon cancer screening (V76.51) (Z12.11) Compression fx, thoracic spine (805.2) (S22.000A) Conjunctivitis, bacterial (372.39,041.9) (H10.9) COPD, moderate (496) (J44.9) Cough (786.2) (R05.9) Current use of residential anticoagulation (V58.61) (Z79.01) Dehydration (276.51) (E86.0) Depression (311) (F32.A) Dizziness (780.4) (R42) DJD of shoulder (715.91) (M19.019) Dry eye (375.15) (H04.129) Encounter for Medicare annual wellness exam (V70.0) (Z00.00) Fatigue (780.79) (R53.83) Glaucoma screening (V80.1) (Z13.5) Hyperlipidemia (272.4) (E78.5) Hypoparathyroidism (252.1) (E20.9) Hypotension (458.9) (I95.9) Hypothyroidism (244.9) (E03.9) IBS (irritable bowel syndrome) (564.1) (K58.9) Left arm pain (729.5) (M79.602) Lipoma (214.9) (D17.9) Lumbar disc disease with radiculopathy (722.10,724.4) (M51.16) Mass of right breast on mammogram (611.72) (N63.10) Memory impairment (780.93) (R41.3) Memory loss (780.93) (R41.3) Menopausal disorder (627.9) (N95.9) Nail abnormality (703.9) (L60.9) Nephrolithiasis (592.0) (N20.0) Obesity (278.00) (E66.9) Obstructive sleep apnea (327.23) (G47.33) Osteoarthritis of right hip (715.95) (M16.11) Osteopenia (733.90) (M85.80) Osteoporosis screening (V82.81) (Z13.820) Pain, hip (719.45) (M25.559) Palpitations (785.1) (R00.2) Periorbital edema (782.3) (R60.0) Plantar fasciitis (728.71) (M72.2) Poison elba dermatitis (692.6) (L23.7) Postmenopausal status, age-related (V49.81) (Z78.0) Primary osteoarthritis of left shoulder (715.11) (M19.012) Pulmonary hypertension (416.8) (I27.20) Restrictive lung disease (518.89) (J98.4) Rotator cuff tendinitis (726.10) (M75.80) Sciatica (724.3) (M54.30) Screeni (more content not included)... Normal [facility] Radiologyon 06-29-2022 RF Shoulder Arthrogram Normal -[place] [facility] [place] Work Phone: SHOULDER, ARTHROGRAMon 06-29 SHOULDER, ARTHROGRAM Patient Name: RAYMON BAH STUDY: SHOULDER, ARTHROGRAM; 06/29/2022 2:15 pm INDICATION: pain M19.019: DJD of shoulder. COMPARISON: None. ACCESSION NUMBER(S): [id number] ORDERING CLINICIAN: MAXIMILIANO WAN FINDINGS: The risks, benefits and alternatives of the procedure were discussed with the patient. The patient was given the chance to ask questions, and all were answered prior to proceeding. At this time, written informed consent was obtained. Time out was performed prior to the procedure to confirm patient identity and the appropriate procedure site. The patient was placed in the supine position on the fluoroscopic table and was prepped and draped in the usual sterile fashion. The left shoulder joint was localized under fluoroscopy. Local anesthesia was achieved with 2% lidocaine. Under fluoroscopic guidance a 22 gauge needle was inserted into the left shoulder joint. 3 ml of Omnipaque 300 contrast was injected to confirm intraarticular needle placement with fluoroscopy. 7 mL steroid mixture (3 mL lidocaine, 3 mL bupivacaine, and 1 mL (20 mg methylprednisolone) were injected into the left shoulder joint. The patient tolerated the procedure well and no immediate complication was noted. Fluoroscopy time: 15 seconds. Total images: 1. IMPRESSION: Successful fluoroscopic guided left shoulder therapeutic injection. Electronically signed by: MAVIS HUNT MD Normal [facility] HIP, UNILATERAL W/PELVIS WHE N PERFORMED 2-3 VIEWSon 06-12-2022 HIP, UNILATERAL W/PELVIS WHEN PERFORMED 2-3 VIEWS Patient Name: RAYMON BAH STUDY: HIP, UNILATERAL W/PELVIS WHEN PERFORMED 2-3 VIEWS; Right; 06/12/2022 1:40 pm INDICATION: pain M25.559: Pain, hip. ACCESSION NUMBER(S): [id number] ORDERING CLINICIAN: MAXIMILIANO WAN FINDINGS: AP lateral right hip x-ray shows a well-positioned right total hip replacement no fracture dislocation is noted implant is stable in secure and unchanged in position from prior films. Faint pedestal Ling or calcification is noticed at the distal end of the prosthesis correlate with clinical need for possible bone scan if clinical symptoms are indicated to evaluate for potential loosening Electronically signed by: MAXIMILIANO WAN MD [facility] Initial Visit (Orthopaedic S urgery)on 06-12-2022 Initial Visit (Orthopaedic Surgery) Diagnoses/Problems Assessed Shoulder pain (719.41) (M25.519) Primary osteoarthritis of left shoulder (715.11) (M19.012) Orders DJD of shoulder Xray Arthrogram Shoulder; Status:Active; Requested for:[id number]; Laterality : Left Radiologist to Determine Optimal Study : Y What are the patient's signs and symptoms? : pain Provider Impressions Impression: Left shoulder osteoarthritis now for fluoro-guided injection. Treatment Plan: Fluoro-guided injection will give us a unique ability to delineate how much of her pain is exactly coming from her shoulder, how much is coming from the neck, and we will see how much pain relief she gets and we will see her back in two to three weeks. We will see her back and just follow her for her hip clinically. If gets more thigh or groin pain or leg pain, obviously we would consider her a candidate for a bone scan of the total hip implant. But at this point, we will let the pain management docs continue to treat her low back program with injections, therapy rehab program. We look forward to seeing her back after fluoro-guided injection of her left shoulder, which will uniquely tell us how much pain is coming from the arthritis in her shoulder versus her neck. Chief Complaint Rt hip and Rt shoulder pain xrays today History of Present IllnessPatient seen for a new problem right shoulder. [...] she walks. No pain when she stands. Active Problems Problems Abdominal discomfort, epigastric (789.06) (R10.13) Allergic reaction, initial encounter (995.3) (T78.40XA) Ambulatory dysfunction (719.7) (R26.2) Anticoagulant long-term use (V58.61) (Z79.01) Anxiety (300.00) (F41.9) Atrial fibrillation (427.31) (I48.91) Back pain with radiation (724.5) (M54.9) Benign colonic polyp (211.3) (K63.5) BMI 35.0-35.9,adult (V85.35) (Z68.35) BMI 38.0-38.9,adult (V85.38) (Z68.38) Body mass index (BMI) of 36.0 to 36.9 in adult (V85.36) (Z68.36) Calcaneal spur, unspecified laterality (726.73) (M77.30) Carpal tunnel syndrome (354.0) (G56.00) Cellulitis (682.9) (L03.90) Chronic lumbar radiculopathy (724.4) (M54.16) Colon cancer screening (V76.51) (Z12.11) Compression fx, thoracic spine (805.2) (S22.000A) Conjunctivitis, bacterial (372.39,041.9) (H10.9) COPD, moderate (496) (J44.9) Cough (786.2) (R05.9) Current use of milieu manager anticoagulation (V58.61) (Z79.01) Dehydration (276.51) (E86.0) Depression (311) (F32.A) Dizziness (780.4) (R42) Dry eye (375.15) (H04.129) Encounter for Medicare annual wellness exam (V70.0) (Z00.00) Fatigue (780.79) (R53.83) Glaucoma screening (V80.1) (Z13.5) Hyperlipidemia (272.4) (E78.5) Hypoparathyroidism (252.1) (E20.9) Hypotension (458.9) (I95.9) Hypothyroidism (244.9) (E03.9) IBS (irritable bowel syndrome) (564.1) (K58.9) Left arm pain (729.5) (M79.602) Lipoma (214.9) (D17.9) Lumbar disc disease with radiculopathy (722.10,724.4) (M51.16) Mass of right breast on mammogram (611.72) (N63.10) Memory impairment (780.93) (R41.3) Memory loss (780.93) (R41.3) Menopausal disorder (627.9) (N95.9) Nail abnormality (703.9) (L60.9) Nephrolithiasis (592.0) (N20.0) Obesity (278.00) (E66.9) Obstructive sleep apnea (327.23) (G47.33) Osteoarthritis of right hip (715.95) (M16.11) Osteopenia (733.90) (M85.80) Osteoporosis screening (V82.81) (Z13.820) Pain, hip (719.45) (M25.559) Palpitations (785.1) (R00.2) Periorbital edema (782.3) (R60.0) Plantar fasciitis (728.71) (M72.2) Poison elba dermatitis (692.6) (L23.7) Postmenopausal status, age-related (V49.81) (Z78.0) Pulmonary hypertension (416.8) (I27.20) Restrictive lung disease (518.89) (J98.4) Rotator cuff tendinitis (726.10) (M75.80) Sciatica (724.3) (M54.30) Screening for malignant neoplasms, colon Seasonal allergies (477.9) (J30.2) Severe headache (784.0) (R51.9) Sinusitis (473.9) (J32.9) Soft tissue mass (729.99) (M79.89) Swelling around both eyes (782.2) (R22.0) Tubular adenoma of colon (211.3) (D12.6) Umbilical hernia (553.1) (K42.9) Unsteady gait (781.2) (R26.81) UTI (urinary tract infection) (599.0) (N39.0) Vision changes (368.9) (H53.9) Visit for screening mammogram (V76.12) (Z12.31) Vitamin D deficiency (268.9) (E55.9) Past Medical History Problems History of Atrial fibrillation (427.31) (I48.91) History of Chronic obstructive pulmonary disease (496) (J44.9) History of Foot pain, unspecified laterality History of anxiety disorder (V11.8) (Z86.59) History of arthritis (V13.4) (Z87.39) History of asthma ( (more content not included)... Normal [facility] Radiologyon 06-12-2022 XR Pelvis and Hip - left 2 Views Normal -[facility] [place] Work Phone: XR Shoulder 2 Views Normal -[facility] [place] Work Phone: SHOULDER, CMPLT, MIN 2 VIEWS on 06-12-2022 SHOULDER, CMPLT, MIN 2 VIEWS Patient Name: RAYMON BAH STUDY: SHOULDER, CMPLT, MIN 2 VIEWS; Left; 06/12/2022 1:40 pm INDICATION: pain M25.519: Shoulder pain. ACCESSION NUMBER(S): [id number] ORDERING CLINICIAN: MAXIMILIANO WAN FINDINGS: AP axillary left shoulder shows moderately advancing glenohumeral joint osteoarthrosis. This is seen on both the AP and axillary view. Cystic exchange specialist the greater tuberosity consistent with possible history of prior rotator cuff repair is noted. The subacromial space is well preserved on the axillary view the humeral head is centered in the glenoid fossa but [id number] arthrosis is appreciated with complete loss of joint space. No fracture dislocation otherwise noted Electronically signed by: MAXIMILIANO WAN MD Normal [facility] LABORATORYOrdered By: Shan Rosado on 06-08-2022 INR Coag (PPP) [Relative time] 1.1 {INR} Invalid Interpretation Code AO HemoHub SS PT Coag (PPP) [Time] 12.6 s Invalid Interpretation Code 9.1 - 14.2 seconds AO HemoHub SS LABORATORYOrdered By: SYSTEM SYSTEM on 06-01-2022 Albumin BCP dye [Mass/Vol] 3.7 G/dL Invalid Interpretation Code 3.4 - 4.8 G/dL AO ADM SS Albumin/Globulin [Mass ratio] 1.1 {ratio} Invalid Interpretation Code 1.1 - 2.5 ratio AO ADM SS ALP [Catalytic activity/Vol] 79 U/L Invalid Interpretation Code 40 - 135 U/L AO ADM SS ALT With P-5'-P [Catalytic activity/Vol] 34 U/L Invalid Interpretation Code 14 - 59 U/L AO ADM SS AST With P-5'-P [Catalytic activity/Vol] 36 U/L Invalid Interpretation Code 10 - 40 U/L AO ADM SS Bilirubin [Mass/Vol] 0.6 mg/dL Invalid Interpretation Code 0.2 - 1.0 mg/dL AO ADM SS Calcium [Mass/Vol] 9.2 mg/dL Invalid Interpretation Code 8.4 - 10.2 mg/dL AO ADM SS Chloride [Moles/Vol] 103 mmol/L Invalid Interpretation Code 98 - 107 mmol/L AO ADM SS CO2 [Moles/Vol] 28 mmol/L Invalid Interpretation Code 23 - 31 mmol/L AO ADM SS Creatinine [Mass/Vol] 0.83 mg/dL Invalid Interpretation Code 0.55 - 1.02 mg/dL AO ADM SS Electrolyte Balance 9.0 mEq/L Invalid Interpretation Code 4.0 - 15.0 mEq/L AO ADM SS GFR 81 ml/min/1.73sqm Invalid Interpretation Code AO Chemistry S GFR Non- 67 ml/min/1.73sqm Invalid Interpretation Code AO Chemistry S Globulin 3.5 G/dL Invalid Interpretation Code AO ADM SS Glucose [Mass/Vol] 155 mg/dL Invalid Interpretation Code 83 - 110 mg/dL AO ADM SS Parathyrin.intact [Mass/Vol] 42.1 pg/mL Invalid Interpretation Code 18.5 - 88.0 pg/mL AH ADM SS Phosphate [Mass/Vol] 4.2 mg/dL Invalid Interpretation Code 2.3 - 4.1 mg/dL AO ADM SS Potassium [Moles/Vol] 4.4 mmol/L Invalid Interpretation Code 3.5 - 5.1 mmol/L AO ADM SS Protein [Mass/Vol] 7.2 G/dL Invalid Interpretation Code 6.4 - 8.2 G/dL AO ADM SS Sodium [Moles/Vol] 140 mmol/L Invalid Interpretation Code 136 - 145 mmol/L AO ADM SS Urea nitrogen [Mass/Vol] 15 mg/dL Invalid Interpretation Code 7 - 18 mg/dL AO ADM SS Urea nitrogen/Creatinine [Mass ratio] 18 ratio Invalid Interpretation Code 7 - 27 ratio AO ADM SS LABORATORYOrdered By: Emiliana Glass on 06-01-2022 Basophil, Absolute 0.0 103/mcL Invalid Interpretation Code 0.0 - 0.2 10^3/mcL AO Workflow SS Basophils/100 WBC (Bld) 0.6 % Invalid Interpretation Code 0.0 - 2.5 % AO Workflow SS Eosinophil, Absolute 0.1 103/mcL Invalid Interpretation Code 0.0 - 0.4 10^3/mcL AO Workflow SS Eosinophils/100 WBC (Bld) 0.8 % Invalid Interpretation Code 0.0 - 7.0 % AO Workflow SS Erythrocyte distribution width (RBC) [Ratio] 16.1 % Invalid Interpretation Code 11.5 - 14.5 % AO Workflow SS Hematocrit (Bld) [Volume fraction] 42.1 % Invalid Interpretation Code 37.0 - 47.0 % AO Workflow SS Hemoglobin (Bld) [Mass/Vol] 14.1 G/dL Invalid Interpretation Code 12.0 - 16.0 G/dL AO Workflow SS Lymphocyte, Absolute 1.7 103/mcL Invalid Interpretation Code 0.8 - 3.9 10^3/mcL AO Workflow SS Lymphocytes/100 WBC (Bld) 23.1 % Invalid Interpretation Code 10.0 - 50.0 % AO Workflow SS MCH (RBC) [Entitic mass] 29.4 pg Invalid Interpretation Code 27.0 - 31.2 pg AO Workflow SS MCHC 33.5 G/dL Invalid Interpretation Code 33.0 - 37.0 G/dL AO Workflow SS MCV (RBC) [Entitic vol] 87.8 fL Invalid Interpretation Code 80.0 - 94.0 fL AO Workflow SS Monocyte, Absolute 0.6 103/mcL Invalid Interpretation Code 0.2 - 1.0 10^3/mcL AO Workflow SS Monocytes/100 WBC (Bld) 7.6 % Invalid Interpretation Code 1.7 - 13.0 % AO Workflow SS Neutrophil, Absolute 5.1 103/mcL Invalid Interpretation Code 2.9 - 6.2 10^3/mcL AO Workflow SS Neutrophils/100 WBC (Bld) 67.9 % Invalid Interpretation Code 37.0 - 80.0 % AO Workflow SS Platelet mean volume (Bld) [Entitic vol] 8.2 fL Invalid Interpretation Code 7.4 - 10.4 fL AO Workflow SS Platelets (Bld) [#/Vol] 233 103/mcL Invalid Interpretation Code 130 - 400 10^3/mcL AO Workflow SS RBC (Bld) [#/Vol] 4.79 106/mcL Invalid Interpretation Code 4.20 - 5.40 10^6/mcL AO Workflow SS WBC (Bld) [#/Vol] 7.5 103/mcL Invalid Interpretation Code 4.6 - 10.8 10^3/mcL AO Workflow SS LABORATORYOrdered By: Kellen Barber on 06-01-2022 Cholesterol [Mass/Vol] 177 mg/dL Invalid Interpretation Code 0 - 200 mg/dL AO ADM SS Cholesterol in HDL [Mass/Vol] 60 mg/dL Invalid Interpretation Code 40 - 60 mg/dL AO ADM SS Cholesterol in LDL [Mass/Vol] 93 mg/dL Invalid Interpretation Code 0 - 130 mg/dL AO ADM SS Triglyceride [Mass/Vol] 118 mg/dL Invalid Interpretation Code 0 - 150 mg/dL AO ADM SS LABORATORYOrdered By: Edwin Markham on 04-12-2022 Adenovirus DNA VICKI+non-probe Ql (Nph) Not Detected *NA* (04/12/22 5:51 PM) Invalid Interpretation Code Not Detected AH Auto Viro/Sero SS B. parapertussis [id number] DNA VICKI+non-probe Ql (Nph) Not Detected *NA* (04/12/22 5:51 PM) Invalid Interpretation Code Not Detected AH Auto Viro/Sero SS B. pertussis toxin promoter region VICKI+non-probe Ql (Nph) Not Detected *NA* (04/12/22 5:51 PM) Invalid Interpretation Code Not Detected AH Auto Viro/Sero SS C. pneumoniae DNA VICKI+non-probe Ql (Nph) Not Detected *NA* (04/12/22 5:51 PM) Invalid Interpretation Code Not Detected AH Auto Viro/Sero SS FLUAV H1 2009 pand RNA VICKI+non-probe Ql (Nph) Detected 1 *ABN* (04/12/22 5:51 PM) Invalid Interpretation Code Not Detected AH Auto Viro/Sero SS Comment on above: Result Comment: This organism causes a reportable disease. Infection Control has been notified. Results have been reported to the [place] [facility]. FLUBV RNA VICKI+non-probe Ql (Nph) Not Detected *NA* (04/12/22 5:51 PM) Invalid Interpretation Code Not Detected AH Auto Viro/Sero SS hMPV RNA VICKI+non-probe Ql (Nph) Not Detected *NA* (04/12/22 5:51 PM) Invalid Interpretation Code Not Detected AH Auto Viro/Sero SS M. pneumoniae DNA VICKI+non-probe Ql (Nph) Not Detected *NA* (04/12/22 5:51 PM) Invalid Interpretation Code Not Detected AH Auto Viro/Sero SS Parainfluenza virus 1 RNA VICKI+non-probe Ql (Nph) Not Detected *NA* (04/12/22 5:51 PM) Invalid Interpretation Code Not Detected AH Auto Viro/Sero SS Parainfluenza virus 2 RNA VICKI+non-probe Ql (Nph) Not Detected *NA* (04/12/22 5:51 PM) Invalid Interpretation Code Not Detected AH Auto Viro/Sero SS Parainfluenza virus 3 RNA VICKI+non-probe Ql (Nph) Not Detected *NA* (04/12/22 5:51 PM) Invalid Interpretation Code Not Detected AH Auto Viro/Sero SS Parainfluenza virus 4 RNA VICKI+non-probe Ql (Nph) Not Detected *NA* (04/12/22 5:51 PM) Invalid Interpretation Code Not Detected AH Auto Viro/Sero SS Rhinovirus+Enterovirus RNA VICKI+non-probe Ql (Nph) Not Detected *NA* (04/12/22 5:51 PM) Invalid Interpretation Code Not Detected AH Auto Viro/Sero SS RSV RNA VICKI+non-probe Ql (Nph) Not Detected *NA* (04/12/22 5:51 PM) Invalid Interpretation Code Not Detected AH Auto Viro/Sero SS SARS-CoV-2 (COVID-19) RNA VICKI+probe Ql (Resp) Not Detected *NA* (04/12/22 5:51 PM) Invalid Interpretation Code Not Detected AH Auto Viro/Sero SS LABORATORYOrdered By: Emiliana Glass on 03-23-2022 INR Coag (PPP) [Relative time] 1.3 {INR} Invalid Interpretation Code 0.9 - 1.2 ratio AO Coag SS PT Coag (PPP) [Time] 14.2 s Invalid Interpretation Code 9.7 - 13.9 seconds AO Coag SS LABORATORYOrdered By: Janelle beebe on 01-23-2022 Glucose [Mass/Vol] 188 mg/dL Invalid Interpretation Code 82 - 115 mg/dL [facility] Work Phone: HbA1c (Bld) [Mass fraction] 7.4 % [facility] Work Phone: Lab Performing Location [facility] Work Phone: Blood Pressure Cuff Sizeon 0 01-06-2022 Fall risk assessment b) One or more fall s in the last year [facility] Work Phone: Tobacco use status CPHS b) No [facility] Work Phone: Blood Pressure Cuff Size Adult [facility] Work Phone: Office Visit (Internal Medic ine)on 01-06-2022 Follow-up visit Diagnoses/Problems Assessed Hypothyroidism (244.9) (E03.9) Nephrolithiasis (592.0) (N20.0) Orders Depression Continue: Escitalopram Oxalate 10 MG Oral Tablet; TAKE 1 TABLET BY MOUTH EVERY DAY Rx By: Mari Nicole; Dispense: 90 Days ; #:90 Tablet; Refill: 3;For: Depression; LISBETH = N; Verified Transmission to [facility] #[id number]; Last Updated By: Kayla Khoury; 01/06/2022 10:37:40 AM Dizziness Continue: Meclizine HCl - 12.5 MG Oral Tablet; TAKE 1 TABLET 3 TIMES DAILY NEEDED FOR DIZZINESS Rx By: Mari Nicole; Dispense: 20 Days ; #:60 Tablet; Refill: 1;For: Dizziness; LISBETH = N; Verified Transmission to [facility] #[id number]; Last Updated By: Kayla Khoury; 01/06/2022 10:37:41 AM Hypothyroidism Continue: Levothyroxine Sodium 50 MCG Oral Tablet; TAKE 1 TABLET BY MOUTH EVERY DAY, EXCEPT TAKE 2 TABLETS BY MOUTH ON FRIDAYS Rx By: Kris Yung; Dispense: 90 Days ; #:105 Tablet; Refill: 1;For: Hypothyroidism; LISBETH = N; Verified Transmission to [facility] #[id number]; Last Updated By: Kayla Khoury; 01/06/2022 10:37:40 AM Hypothyroidism, Nephrolithiasis TSH - Thyroid Stimulating Hormone, Serum; Status:Resulted - Requires Verification; Done: [id number] 11:12AM Performed:[facility]; Due:06Apr2022;Ordered; For:Hypothyroidism, Nephrolithiasis; Ordered By:Kris Yung; Restrictive lung disease Continue: ProAir HFA 108 (90 Base) MCG/ACT Inhalation Aerosol Solution (Albuterol Sulfate HFA); INHALE 1 TO 2 PUFFS EVERY 4 TO 6 HOURS NEEDED Rx By: Mari Nicole; Dispense: 0 Days ; #:1 X 8.5 GM Inhaler; Refill: 3;For: Restrictive lung disease; LISBETH = N; Verified Transmission to [facility] [id number]; Last Updated By: Kayla Khoury; 01/06/2022 10:37:41 AM Unlinked Continue: Budesonide 0.5 MG/2ML Inhalation Suspension Dispense: 0 Days ; #: Sufficient Milliliter; Refill: 0; LISBETH = N; Record; Last Updated By: Kayla Khoury; 01/06/2022 10:37:41 AM Continue: Calcium Citrate + Oral Tablet; TAKE 2 TABLET Daily Rx By: Kris Yung; Dispense: 0 Days ; #: Sufficient Tablet; Refill: 0; LISBETH = N; Record; Last Updated By: Kayla Khoury; 01/06/2022 10:37:41 AM Continue: Clindamycin HCl - 300 MG Oral Capsule; 600mg 1 hour prior to dental procedure Dispense: 0 Days ; #: Sufficient Capsule; Refill: 0; LISBETH = N; Record; Last Updated By: Kayla Khoury; 01/06/2022 10:37:41 AM Continue: dilTIAZem HCl ER Coated Beads 180 MG Oral Capsule Extended Release 24 Hour Dispense: 90 Days ; #:90; Refill: 0; LISBETH = N; Record; Last Updated By: Kayla Khoury; 01/06/2022 10:37:41 AM Continue: Furosemide 20 MG Oral Tablet Dispense: 90 Days ; #:90; Refill: 0; LISBETH = N; Record; Last Updated By: Kayla Khoury; 01/06/2022 10:37:41 AM Continue: Ipratropium-Albuterol 0.5-2.5 (3) MG/3ML Inhalation Solution; INHALE 1 VIAL Twice daily Dispense: 0 Days ; #: Sufficient X 3 ML Plas Cont; Refill: 0; LISBETH = N; Record; Last Updated By: Kayla Khoury; 01/06/2022 10:37:41 AM Continue: Meloxicam 15 MG Oral Tablet; TAKE 1 TABLET BY MOUTH EVERY DAY Rx By: RANDOLPH; Dispense: 30 Days ; #:30; Refill: 0; LISBETH = N; Record; Last Updated By: Kayla Khoury; 01/06/2022 10:37:41 AM Continue: Rosuvastatin Calcium 10 MG Oral Tablet; take 1 tablet by mouth at bedtime Rx By: RAKEL; Dispense: 90 Days ; #:90; Refill: 0; LISBETH = N; Record; Last Updated By: Kayla Khoury; 01/06/2022 10:37:41 AM Continue: Vitamin D3 50 MCG (1999) Oral Tablet; TAKE 1 TABLET BY MOUTH EVERY DAY Rx By: RAKEL; Dispense: 90 Days ; #:90; Refill: 0; LISBETH = N; Record; Last Updated By: Kayla Khoury; 01/06/2022 10:37:41 AM Continue: Warfarin Sodium 2 MG Oral Tablet; TK 3 TS 6 MG QD EXCEPT 2 TS 4 MG ON SUNDAY AND SUNDAY OR UTD Dispense: 30 Days ; #:255; Refill: 0; LISBETH = N; Record; Last Updated By: Kayla Khoury; 01/06/2022 10:37:40 AM Patient Discussion/Summary tsh low oxalate diet see pcp on incr sugar same meds keep up water intake follow one yr. calcium normal 2021 Provider Impressions clin euthy on lt4 rx hx hypoparathyroid Chief Complaint follow up hypothyroid History of Present Illnesshx had kidney stones [address] . stones again a few months later four states dr camacho is bernadine jiménez had scope. .. 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 ENT: no sore throat and no hoarseness. Cardiovascular: no chest pain, no palpitations and no lower extremity edema. Respiratory: shortness of breath during exertion. Gastrointestinal: no abdominal pain, no nausea and no diarrhea. Musculoskeletal: arthralgias, (more content not included)... Normal Touchworks TSHon 01-06-2022 TSH Qn 2.14 m[IU]/L Normal 0.44 - 3.98 [facility] Comment on above: Result Comment: TSH testing is performed using different testing methodology at [facility] than at other [facility]. Direct result comparisons should only be made within the same method. Performed By: #### T SH2 #### [facility] [address] [address] [place] [address] TSH - Thyroid Stimulating Ho rmone, Serumon 01-06-2022 TSH Qn 2.14 m[IU]/L See Below -[facility] Work Phone: Comment on above: Reference Range: 0.4 4 - 3.98 TSH testing is performed using different testing methodology at [facility] than at other [facility]. Direct result comparisons should only be made within the same method. LABORATORYOrdered By: Pinky Hankins on 12-12-2021 Cholesterol [Mass/Vol] 229 mg/dL Invalid Interpretation Code 0 - 200 mg/dL AO ADM SS Cholesterol in HDL [Mass/Vol] 55 mg/dL Invalid Interpretation Code 40 - 60 mg/dL AO ADM SS Cholesterol in LDL [Mass/Vol] 151 mg/dL Invalid Interpretation Code 0 - 130 mg/dL AO ADM SS Triglyceride [Mass/Vol] 115 mg/dL Invalid Interpretation Code 0 - 150 mg/dL AO ADM SS Vit. D 25-Hydroxy 69.7 ng/mL Invalid Interpretation Code AO ADM SS LABORATORYOrdered By: Shan Rosado on 12-02-2021 Appearance (U) Slightly Cloudy *ABN* (12/02/21 9:50 AM) Invalid Interpretation Code Clear AO Auto Urine SS Bilirubin Ql (U) Negative (12/02/21 9:50 AM) Invalid Interpretation Code Negative AO Auto Urine SS Calcium oxalate crystals LM.HPF (Urine sed) [#/Area] Trace /HPF Invalid Interpretation Code AO Auto Urine SS Color (U) Yellow (12/02/21 9:50 AM) Invalid Interpretation Code AO Auto Urine SS Glucose Test strip (U) [Mass/Vol] 100 mg/dL Invalid Interpretation Code Negativemg/ dL AO Auto Urine SS Hemoglobin Auto test strip (U) [Mass/Vol] Large *ABN* (12/02/21 9:50 AM) Invalid Interpretation Code Negative AO Auto Urine SS Ketones Ql (U) Negative Invalid Interpretation Code Negativemg/ dL AO Auto Urine SS UA Leuk Est Negative (12/02/21 9:50 AM) Invalid Interpretation Code Negative AO Auto Urine SS UA Nitrite Negative (12/02/21 9:50 AM) Invalid Interpretation Code Negative AO Auto Urine SS UA pH 5.0 (12/02/21 9:50 AM) Invalid Interpretation Code 5.0 - 8.0 AO Auto Urine SS UA Protein 100 mg/dL Invalid Interpretation Code Negativemg/ dL AO Auto Urine SS UA RBC LOADED /HPF Invalid Interpretation Code None Seen/HPF AO Auto Urine SS UA Spec Grav >=1.030 *ABN* (12/02/21 9:50 AM) Invalid Interpretation Code 1.015-1.025 AO Auto Urine SS UA Specimen Type Clean Catch (12/02/21 9:50 AM) Invalid Interpretation Code AO Auto Urine SS UA Squam Epithelial 0-5 /HPF Invalid Interpretation Code None Seen/HPF AO Auto Urine SS UA Urobilinogen 0.2 E.U./dL Invalid Interpretation Code 0.2-1.0E.U. /dL AO Auto Urine SS WBC LM.HPF (Urine sed) [#/Area] None Seen /HPF Invalid Interpretation Code None Seen/HPF AO Auto Urine SS Calcium [Mass/Vol] 9.1 mg/dL Invalid Interpretation Code 8.4 - 10.2 mg/dL AO ADM SS Chloride [Moles/Vol] 104 mmol/L Invalid Interpretation Code 98 - 107 mmol/L AO ADM SS CO2 [Moles/Vol] 23 mmol/L Invalid Interpretation Code 23 - 31 mmol/L AO ADM SS Creatinine [Mass/Vol] 1.01 mg/dL Invalid Interpretation Code 0.55 - 1.02 mg/dL AO ADM SS Electrolyte Balance 13.0 mEq/L Invalid Interpretation Code 4.0 - 15.0 mEq/L AO ADM SS Glucose [Mass/Vol] 206 mg/dL Invalid Interpretation Code 83 - 110 mg/dL AO ADM SS Potassium [Moles/Vol] 3.7 mmol/L Invalid Interpretation Code 3.5 - 5.1 mmol/L AO ADM SS Sodium [Moles/Vol] 140 mmol/L Invalid Interpretation Code 136 - 145 mmol/L AO ADM SS Urea nitrogen [Mass/Vol] 13 mg/dL Invalid Interpretation Code 7 - 18 mg/dL AO ADM SS Urea nitrogen/Creatinine [Mass ratio] 13 ratio Invalid Interpretation Code 7 - 27 ratio AO ADM SS LABORATORYOrdered By: Cindi Chavez on 12-02-2021 Basophil, Absolute 0.0 103/mcL Invalid Interpretation Code 0.0 - 0.2 10^3/mcL AO Workflow SS Basophils/100 WBC (Bld) 0.5 % Invalid Interpretation Code 0.0 - 2.5 % AO Workflow SS Eosinophil, Absolute 0.1 103/mcL Invalid Interpretation Code 0.0 - 0.4 10^3/mcL AO Workflow SS Eosinophils/100 WBC (Bld) 0.6 % Invalid Interpretation Code 0.0 - 7.0 % AO Workflow SS Erythrocyte distribution width (RBC) [Ratio] 14.6 % Invalid Interpretation Code 11.5 - 14.5 % AO Workflow SS Hematocrit (Bld) [Volume fraction] 42.9 % Invalid Interpretation Code 37.0 - 47.0 % AO Workflow SS Hemoglobin (Bld) [Mass/Vol] 14.6 G/dL Invalid Interpretation Code 12.0 - 16.0 G/dL AO Workflow SS Lymphocyte, Absolute 1.5 103/mcL Invalid Interpretation Code 0.8 - 3.9 10^3/mcL AO Workflow SS Lymphocytes/100 WBC (Bld) 16.2 % Invalid Interpretation Code 10.0 - 50.0 % AO Workflow SS MCH (RBC) [Entitic mass] 30.3 pg Invalid Interpretation Code 27.0 - 31.2 pg AO Workflow SS MCHC 34.1 G/dL Invalid Interpretation Code 33.0 - 37.0 G/dL AO Workflow SS MCV (RBC) [Entitic vol] 88.8 fL Invalid Interpretation Code 80.0 - 94.0 fL AO Workflow SS Monocyte distribution width Auto (Bld) [Entitic vol] 16.29 Invalid Interpretation Code 0.00 - 20.00 AO Workflow SS Comment on above: Result Comment: For ED adult patients suspected of sepsis, MDW<=20.0 does not rule out sepsis or risk of sepsis Monocyte, Absolute 0.7 103/mcL Invalid Interpretation Code 0.2 - 1.0 10^3/mcL AO Workflow SS Monocytes/100 WBC (Bld) 8.0 % Invalid Interpretation Code 1.7 - 13.0 % AO Workflow SS Neutrophil, Absolute 6.8 103/mcL Invalid Interpretation Code 2.9 - 6.2 10^3/mcL AO Workflow SS Neutrophils/100 WBC (Bld) 74.7 % Invalid Interpretation Code 37.0 - 80.0 % AO Workflow SS Platelet mean volume (Bld) [Entitic vol] 7.9 fL Invalid Interpretation Code 7.4 - 10.4 fL AO Workflow SS Platelets (Bld) [#/Vol] 285 103/mcL Invalid Interpretation Code 130 - 400 10^3/mcL AO Workflow SS RBC (Bld) [#/Vol] 4.83 106/mcL Invalid Interpretation Code 4.20 - 5.40 10^6/mcL AO Workflow SS WBC 9.2 103/mcL Invalid Interpretation Code 4.6 - 10.8 10^3/mcL AO Workflow SS LABORATORYOrdered By: SYSTEM SYSTEM on 12-02-2021 GFR 65 ml/min/1.73sqm Invalid Interpretation Code AO Chemistry S GFR Non- 54 ml/min/1.73sqm Invalid Interpretation Code AO Chemistry S LABORATORYOrdered By: Shan Rosado on 11-04-2021 Creatinine [Mass/Vol] 0.94 mg/dL Invalid Interpretation Code 0.55 - 1.02 mg/dL AO ADM SS LABORATORYOrdered By: SYSTEM SYSTEM on 11-04-2021 GFR 71 ml/min/1.73sqm Invalid Interpretation Code AO Chemistry S GFR Non- 58 ml/min/1.73sqm Invalid Interpretation Code AO Chemistry S LABORATORYOrdered By: Cindi Chavez on 07-31-2021 Basophil, Absolute 0.00 103/mcL Invalid Interpretation Code 0.00 - 0.19 10^3/mcL AO Auto Heme SS Basophils/100 WBC (Bld) 0.5 % Invalid Interpretation Code 0.0 - 2.5 % AO Auto Heme SS Calcium [Mass/Vol] 8.6 mg/dL Invalid Interpretation Code 8.4 - 10.2 mg/dL AO ADM SS Chloride [Moles/Vol] 103 mmol/L Invalid Interpretation Code 98 - 107 mmol/L AO ADM SS CO2 [Moles/Vol] 24 mmol/L Invalid Interpretation Code 23 - 31 mmol/L AO ADM SS Creatinine [Mass/Vol] 0.91 mg/dL Invalid Interpretation Code 0.55 - 1.02 mg/dL AO ADM SS Electrolyte Balance 13.0 mEq/L Invalid Interpretation Code 4.0 - 15.0 mEq/L AO ADM SS Eosinophil, Absolute 0.10 103/mcL Invalid Interpretation Code 0.00 - 0.40 10^3/mcL AO Auto Heme SS Eosinophils/100 WBC (Bld) 0.8 % Invalid Interpretation Code 0.0 - 7.0 % AO Auto Heme SS Erythrocyte distribution width (RBC) [Ratio] 14.6 % Invalid Interpretation Code 11.5 - 14.5 % AO Auto Heme SS Glucose [Mass/Vol] 109 mg/dL Invalid Interpretation Code 83 - 110 mg/dL AO ADM SS Hematocrit (Bld) [Volume fraction] 42.6 % Invalid Interpretation Code 37.0 - 47.0 % AO Auto Heme SS Hemoglobin (Bld) [Mass/Vol] 14.3 G/dL Invalid Interpretation Code 12.0 - 16.0 G/dL AO Auto Heme SS INR Coag (PPP) [Relative time] 2.3 {INR} Invalid Interpretation Code 0.9 - 1.2 ratio AO Coag SS Lymphocyte, Absolute 1.40 103/mcL Invalid Interpretation Code 0.77 - 3.85 10^3/mcL AO Auto Heme SS Lymphocytes/100 WBC (Bld) 21.6 % Invalid Interpretation Code 10.0 - 50.0 % AO Auto Heme SS MCH (RBC) [Entitic mass] 29.7 pg Invalid Interpretation Code 27.0 - 31.2 pg AO Auto Heme SS MCHC (RBC) [Mass/Vol] 33.6 G/dL Invalid Interpretation Code 33.0 - 37.0 G/dL AO Auto Heme SS MCV (RBC) [Entitic vol] 88.6 fL Invalid Interpretation Code 80.0 - 94.0 fL AO Auto Heme SS Monocyte, Absolute 0.60 103/mcL Invalid Interpretation Code 0.15 - 1.00 10^3/mcL AO Auto Heme SS Monocytes/100 WBC (Bld) 8.8 % Invalid Interpretation Code 1.7 - 13.0 % AO Auto Heme SS Neutrophil, Absolute 4.50 103/mcL Invalid Interpretation Code 2.85 - 6.16 10^3/mcL AO Auto Heme SS Neutrophils/100 WBC (Bld) 68.3 % Invalid Interpretation Code 37.0 - 80.0 % AO Auto Heme SS Platelet mean volume (Bld) [Entitic vol] 8.5 fL Invalid Interpretation Code 7.4 - 10.4 fL AO Auto Heme SS Platelets (Bld) [#/Vol] 200 103/mcL Invalid Interpretation Code 130 - 400 10^3/mcL AO Auto Heme SS Potassium [Moles/Vol] 3.6 mmol/L Invalid Interpretation Code 3.5 - 5.1 mmol/L AO ADM SS PT Coag (PPP) [Time] 26.2 s Invalid Interpretation Code 9.7 - 14.3 seconds AO Coag SS RBC (Bld) [#/Vol] 4.81 106/mcL Invalid Interpretation Code 4.20 - 5.40 10^6/mcL AO Auto Heme SS Sodium [Moles/Vol] 140 mmol/L Invalid Interpretation Code 136 - 145 mmol/L AO ADM SS Urea nitrogen [Mass/Vol] 14 mg/dL Invalid Interpretation Code 7 - 18 mg/dL AO ADM SS Urea nitrogen/Creatinine [Mass ratio] 15 ratio Invalid Interpretation Code 7 - 27 ratio AO ADM SS WBC (Bld) [#/Vol] 6.60 103/mcL Invalid Interpretation Code 4.60 - 10.80 10^3/mcL AO Auto Heme SS Appearance (U) Slightly Cloudy *ABN* (07/31/21 4:57 PM) Invalid Interpretation Code Clear AO Auto Urine SS Bilirubin Ql (U) Negative (07/31/21 4:57 PM) Invalid Interpretation Code Negative AO Auto Urine SS Color (U) Light yellow Invalid Interpretation Code AO Auto Urine SS Glucose Test strip (U) [Mass/Vol] Negative Invalid Interpretation Code Negativemg/ dL AO Auto Urine SS Hemoglobin Auto test strip (U) [Mass/Vol] Large *ABN* (07/31/21 4:57 PM) Invalid Interpretation Code Negative AO Auto Urine SS Ketones Ql (U) Negative Invalid Interpretation Code Negativemg/ dL AO Auto Urine SS UA Leuk Est Negative (07/31/21 4:57 PM) Invalid Interpretation Code Negative AO Auto Urine SS UA Mucous Trace /HPF Invalid Interpretation Code AO Auto Urine SS UA Nitrite Negative (07/31/21 4:57 PM) Invalid Interpretation Code Negative AO Auto Urine SS UA pH 5.0 (07/31/21 4:57 PM) Invalid Interpretation Code 5.0 - 8.0 AO Auto Urine SS UA Protein Negative Invalid Interpretation Code Negativemg/ dL AO Auto Urine SS UA RBC 15-25 /HPF Invalid Interpretation Code None Seen/HPF AO Auto Urine SS UA Spec Grav 1.015 (07/31/21 4:57 PM) Invalid Interpretation Code 1.015-1.025 AO Auto Urine SS UA Specimen Type Clean Catch (07/31/21 4:57 PM) Invalid Interpretation Code AO Auto Urine SS UA Squam Epithelial 0-5 /HPF Invalid Interpretation Code None Seen/HPF AO Auto Urine SS UA Urobilinogen 0.2 E.U./dL Invalid Interpretation Code 0.2-1.0E.U. /dL AO Auto Urine SS WBC LM.HPF (Urine sed) [#/Area] None Seen /HPF Invalid Interpretation Code None Seen/HPF AO Auto Urine SS LABORATORYOrdered By: SYSTEM SYSTEM on 07-31-2021 GFR 73 ml/min/1.73sqm Invalid Interpretation Code AO Chemistry S GFR Non- 61 ml/min/1.73sqm Invalid Interpretation Code AO Chemistry S LABORATORYOrdered By: Janelle beebe on 07-18-2021 Glucose [Mass/Vol] 188 mg/dL Invalid Interpretation Code 82 - 115 mg/dL [facility] Work Phone: HbA1c (Bld) [Mass fraction] 7.4 % [facility] Work Phone: Lab Performing Location [facility] Work Phone: LABORATORYOrdered By: Emiliana Oneal on 07-08-2021 Basophil, Absolute 0.00 103/mcL Invalid Interpretation Code 0.00 - 0.19 10^3/mcL AO Auto Heme SS Basophils/100 WBC (Bld) 0.4 % Invalid Interpretation Code 0.0 - 2.5 % AO Auto Heme SS Eosinophil, Absolute 0.10 103/mcL Invalid Interpretation Code 0.00 - 0.40 10^3/mcL AO Auto Heme SS Eosinophils/100 WBC (Bld) 0.8 % Invalid Interpretation Code 0.0 - 7.0 % AO Auto Heme SS Erythrocyte distribution width (RBC) [Ratio] 14.7 % Invalid Interpretation Code 11.5 - 14.5 % AO Auto Heme SS Hematocrit (Bld) [Volume fraction] 42.9 % Invalid Interpretation Code 37.0 - 47.0 % AO Auto Heme SS Hemoglobin (Bld) [Mass/Vol] 14.4 G/dL Invalid Interpretation Code 12.0 - 16.0 G/dL AO Auto Heme SS Lymphocyte, Absolute 1.50 103/mcL Invalid Interpretation Code 0.77 - 3.85 10^3/mcL AO Auto Heme SS Lymphocytes/100 WBC (Bld) 22.3 % Invalid Interpretation Code 10.0 - 50.0 % AO Auto Heme SS MCH (RBC) [Entitic mass] 29.5 pg Invalid Interpretation Code 27.0 - 31.2 pg AO Auto Heme SS MCHC (RBC) [Mass/Vol] 33.7 G/dL Invalid Interpretation Code 33.0 - 37.0 G/dL AO Auto Heme SS MCV (RBC) [Entitic vol] 87.6 fL Invalid Interpretation Code 80.0 - 94.0 fL AO Auto Heme SS Monocyte, Absolute 0.60 103/mcL Invalid Interpretation Code 0.15 - 1.00 10^3/mcL AO Auto Heme SS Monocytes/100 WBC (Bld) 8.5 % Invalid Interpretation Code 1.7 - 13.0 % AO Auto Heme SS Neutrophil, Absolute 4.60 103/mcL Invalid Interpretation Code 2.85 - 6.16 10^3/mcL AO Auto Heme SS Neutrophils/100 WBC (Bld) 68.0 % Invalid Interpretation Code 37.0 - 80.0 % AO Auto Heme SS Platelet mean volume (Bld) [Entitic vol] 8.1 fL Invalid Interpretation Code 7.4 - 10.4 fL AO Auto Heme SS Platelets (Bld) [#/Vol] 205 103/mcL Invalid Interpretation Code 130 - 400 10^3/mcL AO Auto Heme SS RBC (Bld) [#/Vol] 4.89 106/mcL Invalid Interpretation Code 4.20 - 5.40 10^6/mcL AO Auto Heme SS WBC (Bld) [#/Vol] 6.70 103/mcL Invalid Interpretation Code 4.60 - 10.80 10^3/mcL AO Auto Heme SS Appearance (U) Cloudy *ABN* (07/08/21 10:57 AM) Invalid Interpretation Code Clear AO Auto Urine SS Bilirubin Ql (U) Small *ABN* (07/08/21 10:57 AM) Invalid Interpretation Code Negative AO Auto Urine SS Color (U) Yellow (07/08/21 10:57 AM) Invalid Interpretation Code AO Auto Urine SS Glucose Test strip (U) [Mass/Vol] Negative Invalid Interpretation Code Negativemg/ dL AO Auto Urine SS Hemoglobin Auto test strip (U) [Mass/Vol] Large *ABN* (07/08/21 10:57 AM) Invalid Interpretation Code Negative AO Auto Urine SS Ketones Ql (U) Negative Invalid Interpretation Code Negativemg/ dL AO Auto Urine SS UA Hyal Cast 0-5 /LPF Invalid Interpretation Code AO Auto Urine SS UA Leuk Est Negative (07/08/21 10:57 AM) Invalid Interpretation Code Negative AO Auto Urine SS UA Mucous Trace /HPF Invalid Interpretation Code AO Auto Urine SS UA Nitrite Negative (07/08/21 10:57 AM) Invalid Interpretation Code Negative AO Auto Urine SS UA pH 5.0 (07/08/21 10:57 AM) Invalid Interpretation Code 5.0 - 8.0 AO Auto Urine SS UA Protein 100 mg/dL Invalid Interpretation Code Negativemg/ dL AO Auto Urine SS UA RBC LOADED /HPF Invalid Interpretation Code None Seen/HPF AO Auto Urine SS UA Spec Grav >=1.030 *ABN* (07/08/21 10:57 AM) Invalid Interpretation Code 1.015-1.025 AO Auto Urine SS UA Specimen Type Clean Catch (07/08/21 10:57 AM) Invalid Interpretation Code AO Auto Urine SS UA Squam Epithelial 0-5 /HPF Invalid Interpretation Code None Seen/HPF AO Auto Urine SS UA Urobilinogen 0.2 E.U./dL Invalid Interpretation Code 0.2-1.0E.U. /dL AO Auto Urine SS WBC LM.HPF (Urine sed) [#/Area] 0-5 /HPF Invalid Interpretation Code None Seen/HPF AO Auto Urine SS LABORATORYOrdered By: Pinky Hankins on 07-08-2021 Calcium [Mass/Vol] 8.7 mg/dL Invalid Interpretation Code 8.4 - 10.2 mg/dL AO ADM SS Chloride [Moles/Vol] 104 mmol/L Invalid Interpretation Code 98 - 107 mmol/L AO ADM SS CO2 [Moles/Vol] 25 mmol/L Invalid Interpretation Code 23 - 31 mmol/L AO ADM SS Creatinine [Mass/Vol] 1.00 mg/dL Invalid Interpretation Code 0.55 - 1.02 mg/dL AO ADM SS Electrolyte Balance 12.0 mEq/L Invalid Interpretation Code 4.0 - 15.0 mEq/L AO ADM SS Glucose [Mass/Vol] 180 mg/dL Invalid Interpretation Code 83 - 110 mg/dL AO ADM SS Potassium [Moles/Vol] 4.0 mmol/L Invalid Interpretation Code 3.5 - 5.1 mmol/L AO ADM SS Sodium [Moles/Vol] 141 mmol/L Invalid Interpretation Code 136 - 145 mmol/L AO ADM SS Urea nitrogen [Mass/Vol] 17 mg/dL Invalid Interpretation Code 7 - 18 mg/dL AO ADM SS Urea nitrogen/Creatinine [Mass ratio] 17 ratio Invalid Interpretation Code 7 - 27 ratio AO ADM SS LABORATORYOrdered By: SYSTEM SYSTEM on 07-08-2021 GFR 66 ml/min/1.73sqm Invalid Interpretation Code AO Chemistry S GFR Non- 54 ml/min/1.73sqm Invalid Interpretation Code AO Chemistry S LABORATORYOrdered By: Pinky Hankins on 04-28-2021 Iron [Mass/Vol] 89 ug/dL Invalid Interpretation Code 50 - 170 mcg/dL AO ADM SS Magnesium [Mass/Vol] 2.1 mg/dL Invalid Interpretation Code 1.8 - 2.4 mg/dL AO ADM SS LABORATORYOrdered By: Janelle beebe on 04-18-2021 Glucose [Mass/Vol] 163 mg/dL Invalid Interpretation Code 82 - 115 mg/dL [facility] Work Phone: Blood Pressure Cuff Sizeon 0 11-12-2020 Blood Pressure Cuff Size Adult -[facility] Work Phone: CREATININEon 12-04-2019 Creatinine [Mass/Vol] 0.77 mg/dL Normal 0.50 - 1.05 [facility] Comment on above: Performed By: #### C REAT #### [facility] [address] [place] [address] Creatinine [Mass/Vol] mg/dL Normal >60 [facility] Comment on above: Performed By: #### C REAT #### [facility] [address] [place] [id number] Result Comment: CALC ULATIONS OF ESTIMATED GFR ARE PERFORMED USING THE MDRD STUDY EQUATION FOR THE IDMS-TRACEABLE CREATININE METHODS. CLIN CHEM 2007;53:766-72 UREA NITROGENon 12-04-2019 Urea nitrogen [Mass/Vol] 12 mg/dL Normal - [facility] Comment on above: Performed By: #### U ANGELINA #### [facility] [address] [place] [address] Metabolic Panelon 11-07-2019 Anion gap [Moles/Vol] 11 mmol/L 10 - 20 - [facility] Work Phone: Calcium [Mass/Vol] 9.9 mg/dL 8.6 - 10.6 [facility] Work Phone: Chloride [Moles/Vol] 104 mmol/L 98 - 107 [facility] Work Phone: CO2 [Moles/Vol] 30 mmol/L 21 - 32 [facility] Work Phone: Creatinine [Mass/Vol] 0.77 mg/dL See Below - [facility] Work Phone: Comment on above: Reference Range: 0.5 0 - 1.05 Glucose [Mass/Vol] 98 mg/dL 74 - 99 [facility] Work Phone: Potassium [Moles/Vol] 4.2 mmol/L 3.5 - 5.3 [facility] Work Phone: Sodium [Moles/Vol] 141 mmol/L 136 - 145 MP-Elisabet ect [facility] Work Phone: Urea nitrogen [Mass/Vol] 16 mg/dL 6 - 23 [facility] Work Phone: Otheron 11-07-2019 >60 >60 [facility] Work Phone: Comment on above: CALCULATIONS OF PATRICK MATED GFR ARE PERFORMED USING THE MDRD STUDY EQUATION FOR THE IDMS-TRACEABLE CREATININE METHODS. CLIN CHEM 2007;53:[id number] Parathormone Intact, Serumon 11-07-2019 Parathyrin.intact [Mass/Vol] 39.2 pg/mL See Below -[facility] Work Phone: Comment on above: Reference Range: 18. 5 - 88.0 TSH - Thyroid Stimulating Ho rmone, Serumon 11-07-2019 TSH Qn 2.80 {mIU/L} See Below -[facility] Work Phone: Comment on above: Reference Range: 0.4 4 - 3.98 TSH testing is performed using different testing methodology at [facility] than at other [facility]. Direct result comparisons should only be made within the same method. DIGITAL MAMM SCREENING W/ TO [place] 03-05-2019 DIGITAL MAMM SCREENING W/ NAHID Patient Name: RAYMON BAH STUDY: DIGITAL MAMM SCREENING W/ NAHID; 03/05/2019 2:34 pm ACCESSION NUMBER(S): [id number] ORDERING CLINICIAN: MARI NICOLE INDICATION: Screening. Family history of breast cancer. COMPARISON: 03/24/2013, 12/03/2010 FINDINGS: 2D and tomosynthesis images were reviewed at 1 mm slice thickness. There are areas of scattered fibroglandular tissue. There are bilateral benign circumscribed masses. No suspicious masses or calcifications are identified. IMPRESSION: No mammographic evidence of malignancy. BI-RADS CATEGORY: Category: 2 - Benign. Recommendation: 1 Year Screening. For any future breast imaging appointments, please call [phone]). Patient letter sent SNORM Electronically signed [facility]: [facility] ([facility] ) ----- LYNNRAYMON ([id number]) 1950 F Date Time Provider Department 02/06/19 10:15 AM ANGIE MOON ([facility]) [place] During your visit today, we recorded the following information about you: Temperature Pulse Respiration Blood pressure 98.2 degrees 85/minute 18/minute 122/74 Weight Height 95.1 kg 1.6 m Angie Moon PA-C, MARLO 02/06/2019 10:44 AM Signed 02/06/2019 Patient presents with: Rash: x 2 weeks SUBJECTIVE: This is a 68 year old that is here today for treatment of poison elba/plant reaction, which started 12 days ago. She was seen here 10 days ago for this and placed on a 5 day prednisone burst 40mg daily x 5 days and triamcinolone cream. Since ending the prednisone 5 days ago, the rash has flared back up again. She has new spots on the legs, upper back, and her eyes feel itchy. No other sick symptoms. No other URI symptoms. Denies fever, chills, wheezing or SOB. Patient denies shortness of breath, increased WOB, or chest pain. Pain on scale of 0-10 with 0 being no pain and 10 being greatest pain: 0 Nothing makes the symptoms better. Nothing makes them worse. Self-treatment:. See HPI Barriers to learning: none. Reviewed meds, OTCs, herbals or supplements. Reviewed allergies, medications, social history, and past medical history. PAST MEDICAL HISTORY Diagnosis Date - Myelopathy (HCC) ALLERGIES Erythromycin; Penicillins MEDICATIONS Current Outpatient Medications: triamcinolone acetonide (KENALOG) 0.1 % cream Apply 1 application to affected area twice daily for 14 days. fluticasone-vilanterol (BREO ELLIPTA) 100-25 mcg/dose inhaler Inhale 1 Inhalation as instructed once daily. diltiazem CD (CARTIA XT) 180 mg 24 hr capsule Take 180 mg by mouth once daily. albuterol HFA (VENTOLIN HFA) 90 mcg/actuation inhaler Inhale 2 Puffs as instructed. ergocalciferol, vitamin D2, (VITAMIN D) 50,000 unit capsule Take 50,000 Units by mouth once each week. warfarin (COUMADIN) 2 mg tablet Take 2 mg by mouth daily as directed. levothyroxine sodium(SYNTHROID 50 MCG TAB) Take one(1) tablet daily. escitalopram oxalate(LEXAPRO 10 MG TAB) Take one(1) tablet daily. CALCIUM CARBONATE-VIT D3-SOY ISOFLAVONES 500 MG-200 UNIT-45 MG TAB calcium carbonate ([id number])(TUMS 500 MG CHEWABLE TAB) loperamide hcl(IMODIUM A-D 2 MG TAB) No current facility-administered medications for this visit. Medications and allergies reviewed by this provider. SOCIAL HISTORY Social History Socioeconomic History Marital status: Spouse name: Not on file Number of children: Not on file Years of education: Not on file Highest education level: Not on file Occupational History Not on file Social Needs Financial resource strain: Not on file Food insecurity: Worry: Not on file Inability: Not on file Transportation needs: Medical: Not on file Non-medical: Not on file Tobacco Use Smoking status: Never Smoker Smokeless tobacco: Never Used Substance and Sexual Activity Alcohol use: Not on file Drug use: Not on file Sexual activity: Not on file Lifestyle Physical activity: Days per week: Not on file Minutes per session: Not on file Stress: Not on file Relationships Social connections: Talks on phone: Not on file Gets together: Not on file Attends buddhism service: Not on file Active member of club or organization: Not on file Attends meetings of clubs or organizations: Not on file Relationship status: Not on file Intimate partner violence: Fear of current or ex partner: Not on file Emotionally abused: Not on file Physically abused: Not on file Forced sexual activity: Not on file Other Topics Concerns: Not on file Social History Narrative Not on file REVIEW OF SYSTEMS Review of Systems ROS: constitutional-neg, heent-neg, heart-neg, respiratory-neg except as noted above, lymph-neg, skin-rash- All systems neg except as noted above in HPI. OBJECTIVE: BP 122/74 (BP Site: Left Arm, BP Position: Sitting, BP Cuff Size: Large Adult) Pulse 85 Temp 36.8 ?C (98.2 ?F) Resp 18 Ht 160 cm (5' 3") Wt 95.1 kg (209 lb 11.2 oz) SpO2 94% BMI 37.15 kg/m? . Vital signs reviewed by this provider. Physical Exam AAOx3, no acute distress, patient is pleasant, well groomed, dressed appropriately. General: WD, WN, NAD, alert. HEENT: No facial erythema or swelling. Chest: CTA bilaterally with equal breath sounds; good air exchange throughout. No wheezing, rhonchi, or crackles; no retractions, tripoding, or nasal flaring noted. Heart: RRR, no murmur, rub, or gallop. Skin: no rash noted, cap refill <3sec, normal skin turgor noted. On the Bilateral forearms, anterior tibias, right abdomen, and left posterior shoulder : Erythematous rash with various sized scattered sized papules and plaques. +excoriations. Most are scabbed. No extending erythema or warmth. No vesicles. No current signs of cellulitis. ASSESSMENT/PLAN: 1. Plant dermatitis - ICD9: 692.6, ICD10: L25.5 Previous prednisone (40mg daily x 5 days) burst was not long enough. Rash flared again after completing the burst. - PREDNISONE 10 MG TABLET- longer, lower dose taper - Continue triamcinolone cream May use OTC benadryl as needed for itching Keep rash clean and dry. Monitor for signs of infection- more red, swollen, painful, hot, red streaking, fever, etc- go to ER Call PCP if symptoms worsen or no better. If symptoms worsen, or new symptoms develop go to ER. If you have worsening of breathing or breathing changes- go to ER. If you have persistent fever unrelieved by Tylenol/Motrin- go to the ER. Follow up as needed. Barriers to learning: none. The patient verbalizes understanding and is in agreement with plan of care. CHI Salas PA-C, MARLO 02/06/2019 10:34 AM Signed ASSESSMENT/PLAN: 1. Plant dermatitis - PREDNISONE 10 MG TABLET - Continue triamcinolone cream May use OTC benadryl as needed for itching Keep rash clean and dry. Monitor for signs of infection- more red, swollen, painful, hot, red streaking, fever, etc- go to ER Call PCP if symptoms worsen or no better. If symptoms worsen, or new symptoms develop go to ER. If you have worsening of breathing or breathing changes- go to ER. If you have persistent fever unrelieved by Tylenol/Motrin- go to the ER. Follow up as needed. Barriers to learning: none. The patient verbalizes understanding and is in agreement with plan of care. Angie Moon PA-C Referring Provider: SELF [[id number]] Allergies As of Date: 02/06/2019 Noted Allergy Reaction ERYTHROMYCIN 08/06/2009 PENICILLINS 08/06/2009 Date Reviewed: 02/06/2019 Reviewed by: Sophie Godfrey Ma - Fully Assessed Reason for Visit: Rash [1087] Cmt: x 2 weeks Primary Visit Diagnosis:Plant dermatitis [L25.5] Order(s):predniSONE (DELTASONE) 10 mg tabletTAKE BY MOUTH (2) TABS FOR (4) DAYS THEN (1) TABS FOR (4) DAYS THEN (1/2) TABS FOR (4) DAYS THEN STOPDisp: 14 tabletRfl: 0 Prescriptions as of 02/06/2019 Sig: TRIAMCINOLONE ACETONIDE 0.1 %* Apply 1 application to affect* FLUTICASONE FUROATE 100 MCG-V* Inhale 1 Inhalation as instru* DILTIAZEM SR 180 MG 24 HR CAP Take 180 mg by mouth once sudeep* ALBUTEROL SULFATE HFA 90 MCG/* Inhale 2 Puffs as instructed. ERGOCALCIFEROL (VITAMIN D2) 5* Take 50,000 Units by mouth on* WARFARIN 2 MG TABLET Take 2 mg by mouth daily as d* * SYNTHROID 50 MCG TABLET Take one(1) tablet daily. * LEXAPRO 10 MG TABLET Take one(1) tablet daily. * CALCIUM CARBONATE-VIT D3-SOY * * TUMS 200 MG CALCIUM (500 MG) * * IMODIUM A-D 2 MG TABLET PREDNISONE 10 MG TABLET TAKE BY MOUTH (2) TABS FOR (4* Problem List As Of Date 02/06/2019 Noted Resolved Displacement of Lumbar Intervertebral Disc with*INVALID FOR* Cognitive dysfunction [F09] INVALID FOR* DEUCE (obstructive sleep apnea) [G47.33] INVALID FOR* Other instructions from your clinician: ASSESSMENT/PLAN: 1. Plant dermatitis - PREDNISONE 10 MG TABLET - Continue triamcinolone cream May use OTC benadryl as needed for itching Keep rash clean and dry. Monitor for signs of infection- more red, swollen, painful, hot, red streaking, fever, etc- go to ER Call PCP if symptoms worsen or no better. If symptoms worsen, or new symptoms develop go to ER. If you have worsening of breathing or breathing changes- go to ER. If you have persistent fever unrelieved by Tylenol/Motrin- go to the ER. Follow up as needed. Barriers to learning: none. The patient verbalizes understanding and is in agreement with plan of care. Angie Moon PA-C Prescriptions ordered this encounter Disp Refills Start End PREDNISONE 10 MG TABLET 14 t* 0 02/06/2019 Sig: TAKE BY MOUTH (2) TABS FOR (4) DAYS THEN (1) TABS FOR (4) DAYS THEN (1/2) TABS FOR (4) DAYS THEN STOP Encounter Status:Closed by ANGIE MOON on 02/06/19 [facility] PROGRESSon 02-06-2019 PROGRESS HNO ID: [id number] Author: Angie Yen) MARLO Moon Service: ? Author Type: Physician Healthcare Risk Control Consultant Type: Progress Notes Filed: 02/06/2019 10:44 AM Note Text: 02/06/2019 Patient presents with: Rash: x 2 weeks SUBJECTIVE: This is a 68 year old that is here today for treatment of poison elba/plant reaction, which started 12 days ago. She was seen here 10 days ago for this and placed on a 5 day prednisone burst 40mg daily x 5 days and triamcinolone cream. Since ending the prednisone 5 days ago, the rash has flared back up again. She has new spots on the legs, upper back, and her eyes feel itchy. No other sick symptoms. No other URI symptoms. Denies fever, chills, wheezing or SOB. Patient denies shortness of breath, increased WOB, or chest pain. Pain on scale of 0-10 with 0 being no pain and 10 being greatest pain: 0 Nothing makes the symptoms better. Nothing makes them worse. Self-treatment:. See HPI Barriers to learning: none. Reviewed meds, OTCs, herbals or supplements. Reviewed allergies, medications, social history, and past medical history. PAST MEDICAL HISTORY Diagnosis Date - Myelopathy (HCC) ALLERGIES Erythromycin; Penicillins MEDICATIONS Current Outpatient Medications: triamcinolone acetonide (KENALOG) 0.1 % cream Apply 1 application to affected area twice daily for 14 days. fluticasone-vilanterol (BREO ELLIPTA) 100-25 mcg/dose inhaler Inhale 1 Inhalation as instructed once daily. diltiazem CD (CARTIA XT) 180 mg 24 hr capsule Take 180 mg by mouth once daily. albuterol HFA (VENTOLIN HFA) 90 mcg/actuation inhaler Inhale 2 Puffs as instructed. ergocalciferol, vitamin D2, (VITAMIN D) 50,000 unit capsule Take 50,000 Units by mouth once each week. warfarin (COUMADIN) 2 mg tablet Take 2 mg by mouth daily as directed. levothyroxine sodium(SYNTHROID 50 MCG TAB) Take one(1) tablet daily. escitalopram oxalate(LEXAPRO 10 MG TAB) Take one(1) tablet daily. CALCIUM CARBONATE-VIT D3-SOY ISOFLAVONES 500 MG-200 UNIT-45 MG TAB calcium carbonate ([id number])(TUMS 500 MG CHEWABLE TAB) loperamide hcl(IMODIUM A-D 2 MG TAB) No current facility-administered medications for this visit. Medications and allergies reviewed by this provider. SOCIAL HISTORY Social History Socioeconomic History Marital status: Spouse name: Not on file Number of children: Not on file Years of education: Not on file Highest education level: Not on file Occupational History Not on file Social Needs Financial resource strain: Not on file Food insecurity: Worry: Not on file Inability: Not on file Transportation needs: Medical: Not on file Non-medical: Not on file Tobacco Use Smoking status: Never Smoker Smokeless tobacco: Never Used Substance and Sexual Activity Alcohol use: Not on file Drug use: Not on file Sexual activity: Not on file Lifestyle Physical activity: Days per week: Not on file Minutes per session: Not on file Stress: Not on file Relationships Social connections: Talks on phone: Not on file Gets together: Not on file Attends buddhism service: Not on file Active member of club or organization: Not on file Attends meetings of clubs or organizations: Not on file Relationship status: Not on file Intimate partner violence: Fear of current or ex partner: Not on file Emotionally abused: Not on file Physically abused: Not on file Forced sexual activity: Not on file Other Topics Concerns: Not on file Social History Narrative Not on file REVIEW OF SYSTEMS Review of Systems ROS: constitutional-neg, heent-neg, heart-neg, respiratory-neg except as noted above, lymph-neg, skin-rash- All systems neg except as noted above in HPI. OBJECTIVE: BP 122/74 (BP Site: Left Arm, BP Position: Sitting, BP Cuff Size: Large Adult) Pulse 85 Temp 36.8 ?C (98.2 ?F) Resp 18 Ht 160 cm (5' 3") Wt 95.1 kg (209 lb 11.2 oz) SpO2 94% BMI 37.15 kg/m? . Vital signs reviewed by this provider. Physical Exam AAOx3, no acute distress, patient is pleasant, well groomed, dressed appropriately. General: WD, WN, NAD, alert. HEENT: No facial erythema or swelling. Chest: CTA bilaterally with equal breath sounds; good air exchange throughout. No wheezing, rhonchi, or crackles; no retractions, tripoding, or nasal flaring noted. Heart: RRR, no murmur, rub, or gallop. Skin: no rash noted, cap refill <3sec, normal skin turgor noted. On the Bilateral forearms, anterior tibias, right abdomen, and left posterior shoulder : Erythematous rash with various sized scattered sized papules and plaques. +excoriations. Most are scabbed. No extending erythema or warmth. No vesicles. No current signs of cellulitis. ASSESSMENT/PLAN: 1. Plant dermatitis - ICD9: 692.6, ICD10: L25.5 Previous prednisone (40mg daily x 5 days) burst was not long enough. Rash flared again after completing the burst. - PREDNISONE 10 MG TABLET- longer, lower dose taper - Continue triamcinolone cream May use OTC benadryl as needed for itching Keep rash clean and dry. Monitor for signs of infection- more red, swollen, painful, hot, red streaking, fever, etc- go to ER Call PCP if symptoms worsen or no better. If symptoms worsen, or new symptoms develop go to ER. If you have worsening of breathing or breathing changes- go to ER. If you have persistent fever unrelieved by Tylenol/Motrin- go to the ER. Follow up as needed. Barriers to learning: none. The patient verbalizes understanding and is in agreement with plan of care. Anige Moon PA-C Normal [facility] CNOVon 01-26-2019 CNOV Office Visit ([facility] ) ----- RAYMON BAH ([id number]) 1950 F Date Time Provider Department 01/26/19 1:15 PM KARISHMA HOFF (KATIE) [facility] During your visit today, we recorded the following information about you: Temperature Pulse Respiration Blood pressure 98.3 degrees 82/minute 12/minute 110/64 Weight 93.7 kg Karishma Hoff APRN.CNP 01/26/2019 1:47 PM Signed - Decrease use of soap, especially those containing coloring or perfumes. -Cooler showers and baths-not hot water. -Avoid heat -Aveeno baths as needed. -Benadryl for itching. -Calamine lotion as needed. -Wear loose fitting/cotton clothing. -Avoid fabric softener and/or dryer sheets. -Moisturize daily with Cetaphil, Eucerin or Lubriderm lotions. -Use mild soap. -Use steroid creams for severe areas only and DO NOT use for longer then 2 weeks. -DO NOT use steroid creams on face or in genital area. -Educated patient on side effects of medications. -Follow up with clinic or PCP if rash is worsening with treatment over the next 24-48 hrs or if any new symptoms. -Call PCP or go to ER for pain or swelling around eyes, on face, mouth/throat or genitals. Karishma Hoff APRN.CNP 01/26/2019 2:05 PM Signed Rash (x2 days) History of Present Illness: Raymon Bah is a 68 year old female with a history of onset 2 days ago of rash that is spreading and getting worse. Was outside doing yard working, picking up bundles of weeds/brush, etc. With her arms/hands and then developed rash on her arms. States it is spreading upwards. No open sores or drainage. No fluid filled blisters. It itches her but doesn't hurt or burn. No fever or malaise. Tried pepcid, loratadine and also OTC hydrocortisone cream all without effect. PAST MEDICAL HISTORY Diagnosis Date - Myelopathy (HCC) No past surgical history on file. No family history on file. Social History Socioeconomic History Marital status: Spouse name: Not on file Number of children: Not on file Years of education: Not on file Highest education level: Not on file Occupational History Not on file Social Needs Financial resource strain: Not on file Food insecurity: Worry: Not on file Inability: Not on file Transportation needs: Medical: Not on file Non-medical: Not on file Tobacco Use Smoking status: Never Smoker Smokeless tobacco: Never Used Substance and Sexual Activity Alcohol use: Not on file Drug use: Not on file Sexual activity: Not on file Lifestyle Physical activity: Days per week: Not on file Minutes per session: Not on file Stress: Not on file Relationships Social connections: Talks on phone: Not on file Gets together: Not on file Attends buddhism service: Not on file Active member of club or organization: Not on file Attends meetings of clubs or organizations: Not on file Relationship status: Not on file Intimate partner violence: Fear of current or ex partner: Not on file Emotionally abused: Not on file Physically abused: Not on file Forced sexual activity: Not on file Other Topics Concerns: Not on file Social History Narrative Not on file I have reviewed the above and I concur. ROS: General: no fever or malaise Skin: rash to B/L inner arms that is spreading and itches. No drainage. See HPI. BP 110/64 Pulse 82 Temp 36.8 ?C (98.3 ?F) (Oral) Resp 12 Wt 93.7 kg (206 lb 9.6 oz) SpO2 93% BMI 34.38 kg/m? PHYSICAL EXAMINATION: BP 110/64 Pulse 82 Temp 36.8 ?C (98.3 ?F) (Oral) Resp 12 Wt 93.7 kg (206 lb 9.6 oz) SpO2 93% BMI 34.38 kg/m? General Appearance: age-appropriate female, pleasant and looks well Skin: B/L inner arms from wrists to upper arms with maculopapular rash. No drainage present. ASSESSMENT/PLAN: 1. Plant dermatitis - ICD9: 692.6, ICD10: L25.5 - discussed skin care of rash - follow up if symptoms persist or worsen. - Decrease use of soap, especially those containing coloring or perfumes. -Cooler showers and baths-not hot water. -Avoid heat -Aveeno baths as needed. -Benadryl for itching. -Calamine lotion as needed. -Wear loose fitting/cotton clothing. -Avoid fabric softener and/or dryer sheets. -Moisturize daily with Cetaphil, Eucerin or Lubriderm lotions. -Use mild soap. -Use steroid creams for severe areas only and DO NOT use for longer then 2 weeks. -DO NOT use steroid creams on face or in genital area. -Educated patient on side effects of medications. -Follow up with clinic or PCP if rash is worsening with treatment over the next 24-48 hrs or if any new symptoms. -Call PCP or go to ER for pain or swelling around eyes, on face, mouth/throat or genitals. - PREDNISONE 20 MG TABLET - TRIAMCINOLONE ACETONIDE 0.1 % TOPICAL CREAM Karishma Hoff APRN.TEMPERATURE REGULATOR PYROMETER Patient instructed to return to [facility] or go to the emergency department for problems, worsening, increased or new symptoms, etc. Referring Provider: SELF [[id number]] Allergies As of Date: 01/26/2019 Noted Allergy Reaction ERYTHROMYCIN 08/06/2009 PENICILLINS 08/06/2009 Date Reviewed: 01/26/2019 Reviewed by: Luana Spencer Ma - Fully Assessed Reason for Visit: Rash [1087] Cmt: x2 days Primary Visit Diagnosis:Plant dermatitis [L25.5] Order(s):predniSONE (DELTASONE) 20 mg tabletTake 2 tablets by mouth once daily for 5 days.Disp: 10 tabletRfl: 0 triamcinolone acetonide (KENALOG) 0.1 % creamApply 1 application to affected area twice daily for 14 days.Disp: 15 gRfl: 0 Prescriptions as of 01/26/2019 Sig: FLUTICASONE FUROATE 100 MCG-V* Inhale 1 Inhalation as instru* DILTIAZEM SR 180 MG 24 HR CAP Take 180 mg by mouth once sudeep* ALBUTEROL SULFATE HFA 90 MCG/* Inhale 2 Puffs as instructed. ERGOCALCIFEROL (VITAMIN D2) 5* Take 50,000 Units by mouth on* WARFARIN 2 MG TABLET Take 2 mg by mouth daily as d* * SYNTHROID 50 MCG TABLET Take one(1) tablet daily. * LEXAPRO 10 MG TABLET Take one(1) tablet daily. * CALCIUM CARBONATE-VIT D3-SOY * * TUMS 200 MG CALCIUM (500 MG) * * IMODIUM A-D 2 MG TABLET PREDNISONE 20 MG TABLET Take 2 tablets by mouth once * TRIAMCINOLONE ACETONIDE 0.1 %* Apply 1 application to affect* Problem List As Of Date 01/26/2019 Noted Resolved Displacement of Lumbar Intervertebral Disc with*INVALID FOR* Cognitive dysfunction [F09] INVALID FOR* DEUCE (obstructive sleep apnea) [G47.33] INVALID FOR* Other instructions from your clinician: - Decrease use of soap, especially those containing coloring or perfumes. -Cooler showers and baths-not hot water. -Avoid heat -Aveeno baths as needed. -Benadryl for itching. -Calamine lotion as needed. -Wear loose fitting/cotton clothing. -Avoid fabric softener and/or dryer sheets. -Moisturize daily with Cetaphil, Eucerin or Lubriderm lotions. -Use mild soap. -Use steroid creams for severe areas only and DO NOT use for longer then 2 weeks. -DO NOT use steroid creams on face or in genital area. -Educated patient on side effects of medications. -Follow up with clinic or PCP if rash is worsening with treatment over the next 24-48 hrs or if any new symptoms. -Call PCP or go to ER for pain or swelling around eyes, on face, mouth/throat or genitals. Prescriptions ordered this encounter Disp Refills Start End PREDNISONE 20 MG TABLET 10 t* 0 01/26/2019 01/31/2019 Route: ORAL Sig: Take 2 tablets by mouth once daily for 5 days. TRIAMCINOLONE ACETONIDE 0.1 % TOPICA* 15 g 0 01/26/2019 02/09/2019 Route: TOPICAL Sig: Apply 1 application to affected area twice daily for 14 days. Disposition: Return if symptoms worsen or fail to improve. Follow-up and Disposition History Recorded Encounter Status:Closed by KARISHMA HOFF CNP on 01/26/19 [facility] PROGRESSon 01-26-2019 PROGRESS HNO ID: [id number] Author: Karishma Joe) Kavya Service: ? Author Type: Nurse Practitioner Type: Progress Notes Filed: 01/26/2019 2:05 PM Note Text: Rash (x2 days) History of Present Illness: Raymon Bah is a 68 year old female with a history of onset 2 days ago of rash that is spreading and getting worse. Was outside doing yard working, picking up bundles of weeds/brush, etc. With her arms/hands and then developed rash on her arms. States it is spreading upwards. No open sores or drainage. No fluid filled blisters. It itches her but doesn't hurt or burn. No fever or malaise. Tried pepcid, loratadine and also OTC hydrocortisone cream all without effect. PAST MEDICAL HISTORY Diagnosis Date - Myelopathy (HCC) No past surgical history on file. No family history on file. Social History Socioeconomic History Marital status: Spouse name: Not on file Number of children: Not on file Years of education: Not on file Highest education level: Not on file Occupational History Not on file Social Needs Financial resource strain: Not on file Food insecurity: Worry: Not on file Inability: Not on file Transportation needs: Medical: Not on file Non-medical: Not on file Tobacco Use Smoking status: Never Smoker Smokeless tobacco: Never Used Substance and Sexual Activity Alcohol use: Not on file Drug use: Not on file Sexual activity: Not on file Lifestyle Physical activity: Days per week: Not on file Minutes per session: Not on file Stress: Not on file Relationships Social connections: Talks on phone: Not on file Gets together: Not on file Attends buddhism service: Not on file Active member of club or organization: Not on file Attends meetings of clubs or organizations: Not on file Relationship status: Not on file Intimate partner violence: Fear of current or ex partner: Not on file Emotionally abused: Not on file Physically abused: Not on file Forced sexual activity: Not on file Other Topics Concerns: Not on file Social History Narrative Not on file I have reviewed the above and I concur. ROS: General: no fever or malaise Skin: rash to B/L inner arms that is spreading and itches. No drainage. See HPI. BP 110/64 Pulse 82 Temp 36.8 ?C (98.3 ?F) (Oral) Resp 12 Wt 93.7 kg (206 lb 9.6 oz) SpO2 93% BMI 34.38 kg/m? PHYSICAL EXAMINATION: BP 110/64 Pulse 82 Temp 36.8 ?C (98.3 ?F) (Oral) Resp 12 Wt 93.7 kg (206 lb 9.6 oz) SpO2 93% BMI 34.38 kg/m? General Appearance: age-appropriate female, pleasant and looks well Skin: B/L inner arms from wrists to upper arms with maculopapular rash. No drainage present. ASSESSMENT/PLAN: 1. Plant dermatitis - ICD9: 692.6, ICD10: L25.5 - discussed skin care of rash - follow up if symptoms persist or worsen. - Decrease use of soap, especially those containing coloring or perfumes. -Cooler showers and baths-not hot water. -Avoid heat -Aveeno baths as needed. -Benadryl for itching. -Calamine lotion as needed. -Wear loose fitting/cotton clothing. -Avoid fabric softener and/or dryer sheets. -Moisturize daily with Cetaphil, Eucerin or Lubriderm lotions. -Use mild soap. -Use steroid creams for severe areas only and DO NOT use for longer then 2 weeks. -DO NOT use steroid creams on face or in genital area. -Educated patient on side effects of medications. -Follow up with clinic or PCP if rash is worsening with treatment over the next 24-48 hrs or if any new symptoms. -Call PCP or go to ER for pain or swelling around eyes, on face, mouth/throat or genitals. - PREDNISONE 20 MG TABLET - TRIAMCINOLONE ACETONIDE 0.1 % TOPICAL CREAM Karishma Hoff APRN.TEMPERATURE REGULATOR PYROMETER Patient instructed to return to [facility] or go to the emergency department for problems, worsening, increased or new symptoms, etc. Normal [facility] PROGRESSon 01-14-2019 PROGRESS HNO ID: [id number] Author: Aime Moreno MD Service: ? Author Type: Physician Type: Progress Notes Filed: 01/14/2019 1:08 PM Note Text: OUTPATIENT NEUROLOGY CONSULT NOTE PATIENT NAME: Raymon Bah SERVICE DATE: January 14, 2019 SERVICE: Neurology PCP: Mari Gilmore MD Collateral History per EMR and spouse Quality of History: Good ASSESSMENT/PLAN ==> Cognitive dysfunction: Improved with less stress and better sleep. ----> No further workup for now ----> +/- MRI ----> +/- Neuropsych testing ----> Venue: Home with spouse ----> f/u prn ==> DEUCE: Compliant with CPAP nightly ----> Last PSG 2017 and a new machine was ordered ==> Hx of AFib: On coumadin ==> Hx of PFO s/p closure ==> Borderline B12: HC and MMA are normal, but PO repletion was advised and she says she is taking it. ==> Chronic low back pain with radiation: Described and demonstrated prudent posture More than 50% of the 30 minutes dedicated to this [id number] encounter was spent counseling (eg ddx. DEUCE and relevant issues, rationale for MDM) and coordinating care. Selected Study Results: CT Brain (seen): mild BFTA EEG: normal MRI Left knee: Patellofemoral osteoarthritis, otherwise negative Left leg u/s: no DVT Vitamin B12 (pg/mL) Date Value 10/17/2018 278 TSH (uU/mL) Date Value 10/17/2018 4.240 CHIEF COMPLAINT: Raymon Bah is a 68 year old, female, person who in the context of DEUCE, presented with a chief complaint of memory loss. Update on January 14, 2019: "Good. No changes. Oh, um we came here because there were a lot of words I couldn't say. No I haven't had that." She had really been grasping for words. She's much improved now. Every now and then she might grasp for a word but by and large is ok. She got better when her stress came down and her sleep improved. Her marital relationship. Novel neurologic symptoms: None HPI (reviewed with this visit): The patient (and collateral sources when noted) at presentation had described a gradual onset of word searching and substitutions associated with marital discord and other stress ...but no seizure activity Antegrade memory: Not diminished Language: Word searching and substitution - Improved as of Behavior: Conflict with spouse Executive function: Normal Hallucinations: Denied Visuospatial: No apparent impairment Cognitive fluctuations: Denied Apraxia: None apparent Gait: Stable without falls Sense of taste/smell: "I enjoy spicy foods more" for about the last few years Exacerbated by: Denied Alleviated by: Denied Rx: NA Past treatments: NA Alcohol History: "Never" Sleep History: (+) DEUCE and compliant with CPAP nightly x6-9 hours In bed: Midnight Latency: 10' Awakenings: 1x OOB: 0300. Eats something then returns to bed about 0430 until 0900. Restorative? Yes Function: Independent Driving: Does drive Safety Concerns: No concerns Mood: Stressed. Depressed - "I'm sad a lot". Advanced Planning: Does have POA/Living Will - s/p Counseled not only to have a POA/Living Will but also to have them scanned into the EMR Interval Review of systems: Patient has increased dyspnea (seen by MD, has chronic LBP s/p operation) and occ has pain radiate fown a leg, denies Chest pain, Shortness of breath, nausea or any other new updates to 10x system ROS. OBJECTIVE PHYSICAL EXAM: GENERAL: Not in any apparent distress CARDIOVASCULAR: Deferred RESPIRATORY: Not labored ABDOMEN: Not guarding NEUROLOGIC EXAM: Alert, attentive with fluent language, normal naming and fund of knowledge that is proportional to mental status. Normal conversational short and long-term recall. Oriented. Other: NA Cranial Nerves: II-XII as follows: -Pupils: Reactive to light bilaterally (II) -Visual [place]: Full to confrontation (II) -Optic Fundi with posterior segments: Deferred (II) -Ocular Motility: Full ocular excursion OU (III, IV, ) -Facial Movement: Symmetric excursions (VII) -Facial Sensation: Symmetric to light touch (V) -Tongue: Protrudes midline proportional to patient effort (XII) -[place]: Elevates midline proportional to patient effort (IX, X) -Shrug: Symmetric (XI) -Hearing: Symmetric to finger-rub (VIII) Motor: Full and symmetric upper and lower extremity strength to confrontation Tone: Normal upper and lower extremity tone Sensation: Symmetric upper and lower extremity sensation to light touch Coordination: Accurate and symmetric upper and proportional to effort lower extremity excursions. Reflexes: Deferred Gait: Stable Last 1 Encounter BP Readings: Date: BP: 11/11/2009 138/82 Last 1 Encounter Ht Readings: Date: Ht: 11/11/2009 165.1 cm (5' 5") Last 1 Encounter Wt Readings: Date: Wt: 11/11/2009 92.5 kg (204 lb) BMI Readings from Last 1 Encounters: 11/11/09 : 33.95 kg/m? BP 118/64 Pulse 84 Resp 16 SpO2 95% DATA: Diagnostic tests reviewed for today's visit: Sodium (mmol/L) Date Value 10/17/2018 141 Potassium (mmol/L) Date Value 10/17/2018 4.1 Chloride (mmol/L) Date Value 10/17/2018 105 Creatinine (mg/dL) Date Value 10/17/2018 0.75 BUN (mg/dL) Date Value 10/17/2018 14 Glucose (mg/dL) Date Value 10/17/2018 79 Albumin (g/dL) Date Value 10/17/2018 4.2 Magnesium (mg/dL) Date Value 10/17/2018 2.1 Calcium (mg/dL) Date Value 10/17/2018 9.5 AST (U/L) Date Value 10/17/2018 25 ALT (U/L) Date Value 10/17/2018 19 MEDICATIONS: fluticasone-vilanterol (BREO ELLIPTA) 100-25 mcg/dose inhaler Inhale 1 Inhalation as instructed once daily. diltiazem CD (CARTIA XT) 180 mg 24 hr capsule Take 180 mg by mouth once daily. albuterol HFA (VENTOLIN HFA) 90 mcg/actuation inhaler Inhale 2 Puffs as instructed. ergocalciferol, vitamin D2, (VITAMIN D) 50,000 unit capsule Take 50,000 Units by mouth once each week. warfarin (COUMADIN) 2 mg tablet Take 2 mg by mouth daily as directed. levothyroxine sodium(SYNTHROID 50 MCG TAB) Take one(1) tablet daily. escitalopram oxalate(LEXAPRO 10 MG TAB) Take one(1) tablet daily. CALCIUM CARBONATE-VIT D3-SOY ISOFLAVONES 500 MG-200 UNIT-45 MG TAB calcium carbonate ([id number])(TUMS 500 MG CHEWABLE TAB) loperamide hcl(IMODIUM A-D 2 MG TAB) PAST MEDICAL HISTORY Diagnosis Date - Myelopathy (HCC) ALLERGIES Allergen Reactions - Erythromycin - Penicillins Social History Socioeconomic History Marital status: Spouse name: Not on file Number of children: Not on file Years of education: Not on file Highest education level: Not on file Occupational History Not on file Social Needs Financial resource strain: Not on file Food insecurity: Worry: Not on file Inability: Not on file Transportation needs: Medical: Not on file Non-medical: Not on file Tobacco Use Smoking status: Never Smoker Smokeless tobacco: Never Used Substance and Sexual Activity Alcohol use: Not on file Drug use: Not on file Sexual activity: Not on file Lifestyle Physical activity: Days per week: Not on file Minutes per session: Not on file Stress: Not on file Relationships Social connections: Talks on phone: Not on file Gets together: Not on file Attends buddhism service: Not on file Active member of club or organization: Not on file Attends meetings of clubs or organizations: Not on file Relationship status: Not on file Intimate partner violence: Fear of current or ex partner: Not on file Emotionally abused: Not on file Physically abused: Not on file Forced sexual activity: Not on file Other Topics Concerns: Not on file Social History Narrative Not on file No family history on file. ACTIVE PROBLEM LIST Displacement of Lumbar Intervertebral Disc Without Myelopathy Cognitive Dysfunction Deuce (Obstructive Sleep Apnea) SIGNATURE: Aime Moreno MD DATE: January 14, 2019 TIME: 1:07 PM Normal [facility] ALLIED HEALTHon 11-13-2018 ALLIED HEALTH HNO ID: [id number] Author: Jennifer (Ct) MARITZA Rangel Service: Radiology Author Type: Clinical Rfid Analyst Type: Allied Health Filed: 11/13/2018 10:55 AM Note Text: Radiology Service Progress Note PATIENT NAME: Raymon Bah DATE OF SERVICE: November 13, 2018 TIME: 10:55 AM PATIENT IDENTITY VERIFICATION COMPLETED USING TWO (2) METHODS: Patient confirmed name verbally and ID band matches.. PATIENT GENDER DATA: Female. status: : No status: NO. PATIENT RELEVANT IMPLANT DATA REVIEWED: Not Applicable RADIOLOGY DEPARTMENT: CT; Exam(s) Completed: Brain PERIPHERAL IV DATA: Not applicable SIGNED BY: Jennifer Molina CT November 13, 2018 10:55 AM [facility] CT BRAIN WO IVCONon 11-14-[address] BRAIN WO IVCON * * *Final Report* * * DATE OF EXAM: Nov 13 2018 10:54AM [facility] [place]RAIN [place] IVCON / PROCEDURE REASON: G93.40-Encephalopathy * * * * Physician Interpretation * * * * EXAMINATION: CT BRAIN WO IVCON CLINICAL HISTORY: Encephalopathy ENCEPHALOPATHY TECHNIQUE: Serial axial images without IV contrast were obtained from the vertex to the foramen magnum. MQ: [id number] CT Dose-Length Product (DLP): 637 mGy*cm CT Dose Reduction Employed: No dose reduction techniques were required COMPARISON: None. RESULT: Post-operative change: None. Acute change: No evidence of an acute infarct or other acute parenchymal process. Hemorrhage: No evidence of acute intracranial hemorrhage. Mass Lesion / Mass Effect: There is no evidence of an intracranial mass or extraaxial fluid collection. No significant mass effect. Chronic change: None apparent. Parenchyma: There is no significant volume loss. The brain parenchyma is otherwise within normal limits for age. Ventricles: The ventricles are within normal limits of size and configuration for age. Paranasal sinuses and skull base: The visualized paranasal sinuses are grossly clear. The skull base and imaged soft tissues are unremarkable. IMPRESSION: No intracranial hemorrhage or other acute intracranial abnormalities Oven Technician: ESSENCE Transcribe Date/Time: Nov 13 2018 1:09P Dictated by : HERMAN HUNT DO This examination was interpreted and the report reviewed and electronically signed by: HERMAN HUNT DO on Nov 13 2018 1:16PM EST [id number] [facility] Comp Metabolic Panelon 10-17 Albumin [Mass/Vol] 4.2 g/dL Normal 4.0-4.9 [facility] Comment on above: Performed By: #### C MP #### [facility] [address] [place] [address] #### MG1, FT4, TSH, HOMCYS, B12, MMA #### [facility] [address] [place], [place] [address] #### RBCFLP #### [facility] [address] [place] [address] [facility]-[address] [place] [phone] [place] [address] [place] [address] ALP [Catalytic activity/Vol] 76 U/L Normal 34-123 [facility] Comment on above: Performed By: #### C MP #### [address] [place] [address] #### MG1, FT4, TSH, HOMCYS, B12, MMA #### [place] [phone] #### RBCFLP #### [facility] [address] [place] [address] [facility] [place] [phone] [place] [address] [place] [address] ALT [Catalytic activity/Vol] 19 U/L Normal 0-33 [facility] Comment on above: Performed By: #### C MP #### [address] [place] [address] #### MG1, FT4, TSH, HOMCYS, B12, MMA #### [place] [phone] #### RBCFLP #### [facility] [address] [place], [place] [address] [place], [place] [address] [place] [address] [place] [address] Anion gap [Moles/Vol] 13 mmol/L Normal 0-15 [facility] Comment on above: Performed By: #### C MP #### [address] [place] [address] #### MG1, FT4, TSH, HOMCYS, B12, MMA #### [place] [address] [place] [address] #### RBCFLP #### [facility] [address] [place] [phone] [phone] [facility] [phone] [place] [address] [place] [address] AST [Catalytic activity/Vol] 25 U/L Normal 0-32 [facility] Comment on above: Performed By: #### C MP #### [address] [place] [address] #### MG1, FT4, TSH, HOMCYS, B12, MMA #### [place] [phone] #### RBCFLP #### [facility] [address] [place] [address] [facility] [place] [address] [place] [address] Bilirubin [Mass/Vol] 0.4 mg/dL Normal 0.2-1.3 [facility] Comment on above: Performed By: #### C MP #### [address] [place] [address] #### MG1, FT4, TSH, HOMCYS, B12, MMA #### [place] [phone] #### RBCFLP #### [facility] [address] [place], [place] [address] [place] [phone] [place] [address] Calcium [Mass/Vol] 9.5 mg/dL Normal 8.5-10.2 [facility] Comment on above: Result Comment: Braulio mmended reference range provided for this age range is published by the instrument arc and gas welder. Adult reference ranges have been verified. Performed By: #### C MP #### [address] [place] [address] #### MG1, FT4, TSH, HOMCYS, B12, MMA #### [place] [phone] #### RBCFLP #### [facility] [address] [place] [address] [facility]-[address] [place] [address] [place] [address] Chloride [Moles/Vol] 105 mmol/L Normal 98-107 [facility] Comment on above: Performed By: #### C MP #### [address] [place] [address] #### MG1, FT4, TSH, HOMCYS, B12, MMA #### [place] [phone] #### RBCFLP #### [facility] [address] [place] [phone] [place] [address] [place] [address] CO2 [Moles/Vol] 23 mmol/L Normal 22-29 [facility] Comment on above: Performed By: #### C MP #### [address] [place] [address] #### MG1, FT4, TSH, HOMCYS, B12, MMA #### [place] [phone] #### RBCFLP #### [facility] [address] [place], [place] [address] [place] [phone] [place] [address] Creatinine [Mass/Vol] 0.75 mg/dL Normal 0.51-0.95 [facility] Comment on above: Performed By: #### C MP #### [address] [place] [address] #### MG1, FT4, TSH, HOMCYS, B12, MMA #### [facility] [address] [place] [phone] #### RBCFLP #### [facility] [address] [place] [address] [phone] [place] [address] eGFR- Amer. >60 Normal >60 [facility] Comment on above: Performed By: #### C MP #### [address] [place] [address] #### MG1, FT4, TSH, HOMCYS, B12, MMA #### [place] [phone] #### RBCFLP #### [facility] [address] [place] [address] [phone] [place] [address] GFR/1.73 sq M predicted among non-blacks MDRD (S/P/Bld) [Vol rate/Area] mL/min/{1.73_m2} Normal >60 [facility] Comment on above: Result Comment: eGFR (Estimated GFR) Units of measure: mL/min/1.73 meters squared eGFR is derived from the 4 variable MDRD equation for glomerular filtration rate (GFR) based on a stable serum creatinine, gender, and age. According to KDOQI guidelines, an eGFR <60 mL/min/1.73m2 is sufficient to diagnose a patient with chronic kidney disease. Performed By: #### C MP #### [address] [place] [address] #### MG1, FT4, TSH, HOMCYS, B12, MMA #### [facility] [address] [place] [phone] #### RBCFLP #### [facility] [address] [place] [address] [phone] [place] [address] [place] [address] Glucose [Mass/Vol] 79 mg/dL Normal 74-99 [facility] Comment on above: Performed By: #### C MP #### [address] [place] [address] #### MG1, FT4, TSH, HOMCYS, B12, MMA #### [facility] [address] [place] [phone] #### RBCFLP #### [facility] [address] [place] [address] [phone] [place] [address] [place] [address] Potassium [Moles/Vol] 4.1 mmol/L Normal 3.4-4.5 [facility] Comment on above: Performed By: #### C MP #### [address] [place] [address] #### MG1, FT4, TSH, HOMCYS, B12, MMA #### [place] [address] [place] [phone] #### RBCFLP #### [facility] [address] [place] [address] [phone] [address] [place] [address] Protein [Mass/Vol] 7.2 g/dL Normal 6.6-8.7 [facility] Comment on above: Performed By: #### C MP #### [address] [place] [address] #### MG1, FT4, TSH, HOMCYS, B12, MMA #### [facility] [address] [place] [address] #### RBCFLP #### [facility] [address] [place] [address] [phone] [place] [address] Sodium [Moles/Vol] 141 mmol/L Normal 136-144 [facility] Comment on above: Performed By: #### C MP #### [address] [place] [address] #### MG1, FT4, TSH, HOMCYS, B12, MMA #### [facility] [address] [place] [address] #### RBCFLP #### [facility] [address] [place], [place] [address] [place] [phone] [place] [address] Urea nitrogen [Mass/Vol] 14 mg/dL Normal 8-23 [facility] Comment on above: Result Comment: Braulio mmended reference range provided for this age range is published by the instrument arc and gas welder. Adult reference ranges have been verified. Performed By: #### C MP #### [address] [place] [address] #### MG1, FT4, TSH, HOMCYS, B12, MMA #### [facility] [address] [place] [address] #### RBCFLP #### [facility] [address] [place] [address] [phone] [place] [address] Free T4on 10-17-2018 Free T4 [Mass/Vol] 1.3 ng/dL Normal 0.9-1.7 [facility] Comment on above: Performed By: #### C MP #### [address] [place] [address] #### MG1, FT4, TSH, HOMCYS, B12, MMA #### [place] [phone] #### RBCFLP #### [facility] [address] [place], [place] [address] [place] [phone] [place] [address] Homocysteineon 10-17-2018 Homocysteine 12.6 umol/L Normal <15.1 [facility] Comment on above: Performed By: #### C MP #### [address] [place] [address] #### MG1, FT4, TSH, HOMCYS, B12, MMA #### [place] [phone] #### RBCFLP #### [facility] [address] [place] [phone] [place] [address] Magnesiumon 10-17-2018 Magnesium [Mass/Vol] 2.1 mg/dL Normal 1.7-2.3 [facility] Comment on above: Performed By: #### C MP #### [address] [place] [address] #### MG1, FT4, TSH, HOMCYS, B12, MMA #### [place] [phone] #### RBCFLP #### [facility] [address] [place] [phone] [place] [address] Methylmalonic Acidon 019 Methylmalonic Acid 370 nmol/L Normal 79-376 [facility] Comment on above: Result Comment: This test was developed and its performance characteristics determined by [facility] ( [facility]). It has not been cleared or approved by the FDA. [facility] is regulated under CLIA as qualified to perform high complexity testing. This test is used for clinical purposes. It should not be regarded as investigational or for research. Performed By: #### C MP #### [facility] [address] [place] [address] #### MG1, FT4, TSH, HOMCYS, B12, MMA #### [facility] [address] [place], [place] [phone] #### RBCFLP #### [facility] [address] [place] [address] [phone] [place] [address] PROGRESSon 10-17-2018 PROGRESS HNO ID: [id number] Author: Aime Moreno MD Service: ? Author Type: Physician Type: Progress Notes Filed: 10/17/2018 2:31 PM Note Text: OUTPATIENT NEUROLOGY CONSULT NOTE PATIENT NAME: Raymon Bah SERVICE DATE: October 17, 2018 SERVICE: Neurology PCP: Mari Gilmore MD Collateral History per EMR and spouse Quality of History: Good ASSESSMENT/PLAN ==> Cognitive dysfunction: She has intact recall but isolated word finding difficulty which doesn't interfere with function. There is significant stress and a bit of marital discord - which she keeps coming back to during our encounter - but she faithfully treats her DEUCE. Overall, it does not sound like she has dementia, but I will keep an open mind. ----> Check CMP, B12, Mg, TSH ----> Head CT ----> EEG ----> +/- MRI ----> +/- Neuropsych testing ----> Venue: Home with spouse ----> f/u 3 months ==> DEUCE: Compliant with CPAP nightly ----> Last PSG 2017 and a new machine was ordered ==> Hx of AFib: On coumadin ==> Hx of PFO s/p closure* More than 50% of the 70 minutes dedicated to this [id number] encounter was spent counseling (eg ddx, diagnostic and therapeutic options and algorithm, rationale for MDM) and coordinating care. Selected Study Results: MRI Left knee: Patellofemoral osteoarthritis, otherwise negative Left leg u/s: no DVT No results found for: LDL, B12, TSH CHIEF COMPLAINT: Raymon Bah is a 68 year old, female, person who in the context of DEUCE, presented with a chief complaint of memory loss. Narrative: "I wanna know if you have a test for dementia." She has a habit of thinking about a event and ask her spouse about how many chairs are needed. She would blurt the question out without the other person knowing the context. At a meeting she was describing something and all of a sudden she Blurted out a non-contextual word. Another example is "we drive ourselves crazy I have a lot stress (including with spouse), we're moving." She has some trouble thinking up the words she wants to say. Her thoughts seem disorderly which is a lifelong issue. Lately she conflicts with her spouse. Sometimes when she answers a question she describes circumstances rather being concise. She repeats herself but believes that she's doing it on purpose. Over about the last 2-3 years she started searching for words and might substitute words such as "stroller" for "shopping cart". Her spouse thinks she used to be able to explain herself better but not as well now. There are no particular antegrade memory problems. Sometimes she'd rather just say "I don't know" to her HPI (reviewed with this visit): The patient (and collateral sources when noted) at presentation had described a gradual onset of word searching and substitutions associated with marital discord and other stress ...but no seizure activity Antegrade memory: Not diminished Language: Word searching and substitution Behavior: Conflict with spouse Executive function: Normal Hallucinations: Denied Visuospatial: No apparent impairment Cognitive fluctuations: Denied Apraxia: None apparent Gait: Stable without falls Sense of taste/smell: "I enjoy spicy foods more" for about the last few years Exacerbated by: Denied Alleviated by: Denied Rx: NA Past treatments: NA Alcohol History: "Never" Sleep History: (+) DEUCE and compliant with CPAP nightly x6-9 hours In bed: Midnight Latency: 10' Awakenings: 1x OOB: 0300. Eats something then returns to bed about 0430 until 0900. Restorative? Yes Function: Independent Driving: Does drive Safety Concerns: No concerns Mood: Stressed. Depressed - "I'm sad a lot". Advanced Planning: Does have POA/Living Will - Counseled not only to have a POA/Living Will but also to have them scanned into the EMR OBJECTIVE PHYSICAL EXAM: GENERAL: Not in any apparent distress CARDIOVASCULAR: Regular RESPIRATORY: Clear anteriorly ABDOMEN: Soft Carotid Bruits: None apparent NEUROLOGIC EXAM: Alert, attentive with fluent language, normal naming and fund of knowledge that is proportional to mental status. Normal conversational and confrontational (3/3) short and long-term recall. Oriented. Other: NA Cranial Nerves: II-XII as follows: -Pupils: Reactive to light bilaterally (II) -Visual De Los Santos: Full to confrontation (II) -Optic Fundi with posterior segments: No papilledema seen (II) -Ocular Motility: Full ocular excursion OU (III, IV, ) -Facial Movement: Symmetric excursions (VII) -Facial Sensation: Symmetric to light touch (V) -Tongue: Protrudes midline proportional to patient effort (XII) -Palatte: Elevates midline proportional to patient effort (IX, X) -Shrug: Symmetric (XI) -Hearing: Symmetric to finger-rub (VIII) Motor: Full and symmetric upper and lower extremity strength to confrontation Tone: Normal upper and lower extremity tone Sensation: Symmetric upper and lower extremity sensation to light touch Coordination: Accurate and symmetric upper and proportional to effort lower extremity excursions. Reflexes: BUE 2+, BLE 1+Symmetric Gait: Stable Review of systems: Admits: (+) jt pains Denies: Fever, chills, nausea, vomitting, chest pain, shortness of breath, cough, rash, swelling, bleeding, unexpected weight loss, incontinence, depression or any other updates to review of system (>=10 systems reviewed). Last 1 Encounter BP Readings: Date: BP: 11/11/2009 138/82 Last 1 Encounter Ht Readings: Date: Ht: 11/11/2009 165.1 cm (5' 5") Last 1 Encounter Wt Readings: Date: Wt: 11/11/2009 92.5 kg (204 lb) BMI Readings from Last 1 Encounters: 11/11/09 : 33.95 kg/m? BP 122/70 Pulse 82 Resp 18 SpO2 96% DATA: Diagnostic tests reviewed for today's visit: No results found for: WBC, HB, PLT, NA, K, CHLOR, CREAT, BUN, GLUC, ALB, MG, CA, AST, ALT, CRP, ESR MEDICATIONS: fluticasone-vilanterol (BREO ELLIPTA) 100-25 mcg/dose inhaler Inhale 1 Inhalation as instructed once daily. diltiazem CD (CARTIA XT) 180 mg 24 hr capsule Take 180 mg by mouth once daily. albuterol HFA (VENTOLIN HFA) 90 mcg/actuation inhaler Inhale 2 Puffs as instructed. ergocalciferol, vitamin D2, (VITAMIN D) 50,000 unit capsule Take 50,000 Units by mouth once each week. warfarin (COUMADIN) 2 mg tablet Take 2 mg by mouth daily as directed. levothyroxine sodium(SYNTHROID 50 MCG TAB) Take one(1) tablet daily. escitalopram oxalate(LEXAPRO 10 MG TAB) Take one(1) tablet daily. CALCIUM CARBONATE-VIT D3-SOY ISOFLAVONES 500 MG-200 UNIT-45 MG TAB loperamide hcl(IMODIUM A-D 2 MG TAB) calcium carbonate ([id number])(TUMS 500 MG CHEWABLE TAB) PAST MEDICAL HISTORY Diagnosis Date - Myelopathy (HCC) ALLERGIES Allergen Reactions - Erythromycin - Penicillins Social History Socioeconomic History Marital status: Spouse name: Not on file Number of children: Not on file Years of education: Not on file Highest education level: Not on file Social Needs Financial resource strain: Not on file Food insecurity - worry: Not on file Food insecurity - inability: Not on file Transportation needs - medical: Not on file Transportation needs - non-medical: Not on file Occupational History Not on file Tobacco Use Smoking status: Never Smoker Smokeless tobacco: Never Used Substance and Sexual Activity Alcohol use: Not on file Drug use: Not on file Sexual activity: Not on file Other Topics Concerns: Not on file Social History Narrative Not on file No family history on file. ACTIVE PROBLEM LIST Displacement of Lumbar Intervertebral Disc Without Myelopathy Cognitive Dysfunction SIGNATURE: Aime Moreno MD DATE: October 17, 2018 TIME: 2:29 PM Normal [facility] RBC Folateon 10-17-2018 FOLATE, RBC 452 ng/mL Normal >=366 [facility] Comment on above: Result Comment: (NOT E) Performed by [employer], [address] [place] [address] [email or web address], Cipriano Schmitt MD, Lab. Director Performed By: #### C MP #### [address] [place] [address] #### MG1, FT4, TSH, HOMCYS, B12, MMA #### [facility] [address] [place] [address] #### RBCFLP #### [address] [id number] [phone] [place] [address] Hematocrit (Bld) [Volume fraction] 44.6 % Normal 36.0-46.0 [facility] Comment on above: Performed By: #### C MP #### [address] [place] [address] #### MG1, FT4, TSH, HOMCYS, B12, MMA #### [place] [address] #### RBCFLP #### [place] [address] [phone] [place] [address] TSHon 10-17-2018 TSH Qn 4.240 uU/mL Normal 0.400-5.500 [facility] Comment on above: Performed By: #### C MP #### [address] [place] [address] #### MG1, FT4, TSH, HOMCYS, B12, MMA #### [facility] [address] [place] [phone] #### RBCFLP #### [facility] [address] [place] [address] [phone] [place] [address] Vitamin B12on 10-17-2018 Cobalamin (Vitamin B12) [Mass/Vol] 278 pg/mL Normal 232-1245 [facility] Comment on above: Performed By: #### C MP #### [address] [place] [address] #### MG1, FT4, TSH, HOMCYS, B12, MMA #### [facility] [address] [place] [phone] #### RBCFLP #### [facility] [address] [place] [address] [phone] [place] [address] XR LUMBAR 2V AP/LATon 2016 XR LUMBAR 2V AP/LAT * * *Final Report* * *DATE OF EXAM: Mar 12 2017 11:21AM MDX [id number] - XR LUMBAR 2V AP/LAT / REASON: lumbar post laminectomy syndrome * * * * Physician Interpretation * * * * LUMBAR SPINE X-RAYSHISTORY: LOW BACK PAIN. lumbar post laminectomy syndromeTECHNIQUE: 2 views of the lumbar spine.COMPARISON: NoneRESULT:Counting reference: Lumbosacral junction. For the purposes of this report, L5-S1 is considered the last lumbar type disc space and L4-5 is considered the level of the iliac crest.Postlaminectomy changes noted at L4 and L5 portion of the L3 spinous process has also been removed. There is marked disc space narrowing L2-L3 and mild disc space narrowing L3-S1. There is marked facet arthropathy L4-L5 and L5-S1. There is grade 1 anterolisthesis L5-S1. There is mild retrolisthesis L2-L3 and L3-L4.There is a compression fracture of the T12 vertebral body with moderate vertebral height loss. This is of indeterminate age but likely reflects a remote fracture.IMPRESSION:Posts urgical and degenerative changes lumbar spine including marked disc space narrowing L2-L3 and advanced facet arthropathy L4-S1.T12 compression fracture, likely remote.Oven Technician: PSCArmando Transcribe Date/Time: Mar 12 2017 2:48PDictated by : ANDRZEJ URIBE MDThis examination was interpreted and the report reviewed and electronically signed by: ANDRZEJ URIBE MD on Mar 12 2017 2:51PM [id number] [facility] Vital Signs Date Time Vital Sign Value Performing Clinician Facility 12-23-2024 14:00-0400 Body temperature 98.4 [degF] Dr. Foreign Ellington DO Work Phone: [facility] [place] [facility] 12-23-2024 14:00-0400 Diastolic blood pressure 59 mm[Hg] Dr. Foreign Ellington DO Work Phone: [facility] [place] [facility] 12-23-2024 14:00-0400 Heart rate 80 /min Dr. Foreign Ellington DO Work Phone: [facility] [place] [facility] 12-23-2024 14:00-0400 Respiratory rate 16 /min Dr. Foreign Ellington DO Work Phone: [facility] [place] [facility] 12-23-2024 14:00-0400 SaO2% (BldA) [Mass fraction] 93 % Dr. Foreign Ellington DO Work Phone: [facility] [place] [facility] 12-23-2024 14:00-0400 Systolic blood pressure 117 mm[Hg] Dr. Foreign Ellington DO Work Phone: [facility] [place] [facility] 12-22-2024 16:48-0400 Body height 162.[address] Foreign Ellington DO Work Phone: [facility] [place] [facility] 12-22-2024 16:48-0400 Body mass index (BMI) [Ratio] 32.5 kg/m2 Dr. Foreign Ellington DO Work Phone: [facility] [place] [facility] 12-22-2024 16:48-0400 Body weight [address] Foreign Ellington DO Work Phone: [facility] [place] [facility] 12-22-2024 13:57-0400 Inhaled oxygen flow rate 4 L/min Dr. Foreign Ellington DO Work Phone: [facility] [place] [facility] 06-24-2024 15:01-0500 Diastolic Blood Pressure Non-Invasive 82 mm[Hg] SADNY COLVIN MD [facility] 06-24-2024 15:01-0500 Heart rate 94 /min SANDY COLVIN MD [facility] 06-24-2024 15:01-0500 Respiratory rate 16 /min SANDY COLVIN MD [facility] 06-24-2024 15:01-0500 Systolic Blood Pressure Non-Invasive 140 mm[Hg] SANDY COLVIN MD [facility] 06-24-2024 12:35-0500 Body temperature 98.06 [degF] SANDY COLVIN MD [facility] 06-24-2024 12:35-0500 Body weight 89.7 kg SANDY COLVIN MD [facility] 06-24-2024 12:35-0500 Diastolic Blood Pressure Non-Invasive 65 mm[Hg] SANDY COLVIN MD [facility] 06-24-2024 12:35-0500 Heart rate 100 /min SANDY COLVIN MD [facility] 06-24-2024 12:35-0500 Respiratory rate 16 /min SANDY COLVIN MD [facility] 06-24-2024 12:35-0500 Systolic Blood Pressure Non-Invasive 125 mm[Hg] SANDY COLVIN MD [facility] 12-05-2023 14:15-0400 Diastolic Blood Pressure Non-Invasive 56 mm[Hg] SANDY COLVIN MD [facility] 12-05-2023 14:15-0400 Heart rate 87 /min SANDY COLVIN MD [facility] 12-05-2023 14:15-0400 Respiratory rate 16 /min SANDY COLVIN MD [facility] 12-05-2023 14:15-0400 Systolic Blood Pressure Non-Invasive 105 mm[Hg] SANDY COLVIN MD [facility] 12-05-2023 13:01-0400 Diastolic Blood Pressure Non-Invasive 62 mm[Hg] SANDY COLVIN MD [facility] 12-05-2023 13:01-0400 Heart rate 94 /min SANDY COLVIN MD [facility] 12-05-2023 13:01-0400 Respiratory rate 20 /min SANDY COLVIN MD [facility] 12-05-2023 13:01-0400 Systolic Blood Pressure Non-Invasive 104 mm[Hg] SANDY COLVIN MD [facility] 12-05-2023 12:09-0400 Diastolic Blood Pressure Non-Invasive 52 mm[Hg] SANDY COLVIN MD [facility] 12-05-2023 12:09-0400 Heart rate 94 /min SANDY COLVIN MD [facility] 12-05-2023 12:09-0400 Respiratory rate 22 /min SANDY COLVIN MD [facility] 12-05-2023 12:09-0400 Systolic Blood Pressure Non-Invasive 91 mm[Hg] SANDY COLVIN MD [facility] 12-05-2023 11:25-0400 Blood Pressure Cuff Size SANDY COLVIN MD [facility] 12-05-2023 11:25-0400 Blood Pressure Location SANDY COLVIN MD [facility] 12-05-2023 11:25-0400 Blood Pressure Method SANDY COLVIN MD [facility] 12-05-2023 11:25-0400 Body temperature 98.6 [degF] SANDY COLVIN MD [facility] 07-07-2022 15:20-0500 Body height 160.02 cm Foreign [place] Work [facility] Work [facility]: 07-07-2022 15:20-0500 Body mass index (BMI) [Ratio] 36.85 kg/m2 Foreign Ellington Work Phone: [facility] Work Phone: 07-07-2022 15:20-0500 Body surface area Derived from formula 1.97 m2 Foreign Ellington Work Phone: [facility] Work Phone: 07-07-2022 15:20-0500 Body temperature 96.9 [degF] Foreign Ellington Work Phone: [facility]dy [facility] Work Phone: 07-07-2022 15:20-0500 Body weight 94.35 kg Foreign Ellington Work Phone: [facility] Work Phone: 07-07-2022 15:20-0500 Diastolic blood pressure 80 mm[Hg] Foreignganesh Ellington Work Phone: [employer] [facility] Work Phone: 07-07-2022 15:20-0500 Heart rate 97 /min Foreignganesh Ellington Work Phone: [facility]dy [facility] Work Phone: 07-07-2022 15:20-0500 SaO2% (BldA) [Mass fraction] 94 % Foreign E Rakel Work Phone: [employer] Work Phone: 07-07-2022 15:20-0500 Systolic blood pressure 119 mm[Hg] Foreignganesh Leeakanksha Work Phone: [facility] Work Phone: 06-12-2022 13:38-0500 Body height 160.02 cm Foreignganesh Leeakanksha Work Phone: [facility] [place] Work Phone: 06-12-2022 13:38-0500 Body mass index (BMI) [Ratio] 36.85 kg/m2 Foreign Cat Ellington Work Phone: [facility] [place] Work Phone: 06-12-2022 13:38-0500 Body surface area Derived from formula 1.97 m2 Foreign Cat Rakel Work Phone: [facility] [place] Work Phone: 01-30-2023 13:38-0500 Body weight 94.35 kg Foreign Ellington Work Phone: [facility] Work Phone: 01-06-2022 10:34-0400 Body height 160.02 cm Foreign Ellington Work Phone: [facility] Work Phone: 01-06-2022 10:34-0400 Body mass index (BMI) [Ratio] 37.55 kg/m2 Foreign Ellington Work Phone: [facility] Work Phone: 01-06-2022 10:34-0400 Body surface area Derived from formula 1.98 m2 Foreign Ellington Work Phone: -[facility] Work Phone: 01-06-2022 10:34-0400 Body temperature 96 [degF] Foreign Ellington Work Phone: [facility] Work Phone: 01-06-2022 10:34-0400 Body weight 96.16 kg Foreign Ellington Work Phone: -[employer] [facility] Work Phone: 01-06-2022 10:34-0400 Diastolic blood pressure 60 mm[Hg] Foreign Ellington Work Phone: -[employer] [facility] Work Phone: 01-06-2022 10:34-0400 Heart rate 85 /min Foreign Ellington Work Phone: [facility] Work Phone: 01-06-2022 10:34-0400 SaO2% (BldA) [Mass fraction] 96 % Foreign Ellington Work Phone: -[employer] [facility] Work Phone: 01-06-2022 10:34-0400 Systolic blood pressure 116 mm[Hg] Foreign Ellington Work Phone: [facility] Work Phone: 12-02-2021 10:50-0400 Diastolic blood pressure 78 mm[Hg] MOHINDER METZ MD [facility] 12-02-2021 10:50-0400 Heart rate 77 /min MOHINDER METZ MD [facility] 12-02-2021 10:50-0400 Respiratory rate 20 /min MOHINDER METZ MD [facility] 12-02-2021 10:50-0400 Systolic blood pressure 131 mm[Hg] MOHINDER METZ MD [facility] 12-02-2021 09:00-0400 Body temperature 97.88 [degF] MOHINDER METZ MD [facility] 12-02-2021 09:00-0400 Diastolic blood pressure 89 mm[Hg] MOHINDER METZ MD [facility] 12-02-2021 09:00-0400 Heart rate 75 /min MOHINDER METZ MD [facility] 12-02-2021 09:00-0400 Systolic blood pressure 156 mm[Hg] MOHINDER METZ MD [facility] 07-31-2021 20:12-0400 Diastolic blood pressure 82 mm[Hg] DR PAVAN KHOURY MD [facility] 07-31-2021 20:12-0400 Heart rate 81 /min DR PAVAN KHOURY MD [facility] 07-31-2021 20:12-0400 Reason For Taking VItal Signs DR PAVAN HKOURY MD [facility] 07-31-2021 20:12-0400 Respiratory rate 18 /min DR PAVAN KHOURY MD [facility] 07-31-2021 20:12-0400 Systolic blood pressure 133 mm[Hg] DR PAVAN KHOURY MD [facility] 07-31-2021 17:53-0400 Diastolic blood pressure 77 mm[Hg] DR PAVAN KHOURY MD [facility] 07-31-2021 17:53-0400 Heart rate 84 /min DR PAVAN KHOURY MD [facility] 07-31-2021 17:53-0400 Reason For Taking VItal Signs DR PAVAN KHOURY MD [facility] 07-31-2021 17:53-0400 Respiratory rate 16 /min DR PAVAN KHOURY MD [facility] 07-31-2021 17:53-0400 Systolic blood pressure 127 mm[Hg] DR PAVAN KHOURY MD [facility] 07-31-2021 16:23-0400 Body temperature 98.06 [degF] DR PAVAN KHOURY MD [facility] 07-31-2021 16:23-0400 Diastolic blood pressure 85 mm[Hg] DR PAVAN KHOURY MD [facility] 07-31-2021 16:23-0400 Heart rate 86 /min DR PAVAN KHOURY MD [facility] 07-31-2021 16:23-0400 Respiratory rate 18 /min DR PAVAN KHOURY MD [facility] 07-31-2021 16:23-0400 Systolic blood pressure 134 mm[Hg] DR PAVAN KHOURY MD [facility] 07-08-2021 15:01-0500 Diastolic blood pressure 72 mm[Hg] DR CHUNG LUJAN MD [facility] 07-08-2021 15:01-0500 Heart rate 70 /min DR CHUNG LUJAN MD [facility] 07-08-2021 15:01-0500 Respiratory rate 18 /min DR CHUNG LUJAN MD [facility] 07-08-2021 15:01-0500 Systolic blood pressure 122 mm[Hg] DR CHUNG LUJAN MD [facility] 07-08-2021 11:49-0500 Diastolic blood pressure 85 mm[Hg] DR CHUNG LUJAN MD [facility] 07-08-2021 11:49-0500 Heart rate 78 /min DR CHUNG LUJAN MD [facility] 07-08-2021 11:49-0500 Respiratory rate 16 /min DR CHUNG LUJAN MD [facility] 07-08-2021 11:49-0500 Systolic blood pressure 137 mm[Hg] DR CHUNG LUJAN MD [facility] 07-08-2021 10:24-0500 Body height [address] CHUNG LUJAN MD [facility] 07-08-2021 10:24-0500 Body temperature 98.6 [degF] DR CHUNG LUJAN MD [facility] 07-08-2021 10:24-0500 Body weight [address] CHUNG LUJAN MD [facility] 07-08-2021 10:24-0500 Diastolic blood pressure 81 mm[Hg] DR CHUNG LUJAN MD [facility] 07-08-2021 10:24-0500 Heart rate 109 /min DR CHUNG LUJAN MD [facility] 07-08-2021 10:24-0500 Respiratory rate 18 /min DR CHUNG LUJAN MD [facility] 07-08-2021 10:24-0500 Systolic blood pressure 161 mm[Hg] DR CHUNG LUJAN MD [facility] 04-25-2021 13:46-0500 Body height 160.[address] FOREIGN ELLINGTON DO [facility] 04-25-2021 13:46-0500 Body weight 38.35 kg/m2 DR FOREIGN ELLINGTON DO [facility] 04-25-2021 13:46-0500 Body weight 98.[address] FROEIGN ELLINGTON DO [facility] 11-12-2020 15:30-0400 Body height 160.02 cm Foreign Ellington Work Phone: [facility] Work Phone: 11-12-2020 15:30-0400 Body mass index (BMI) [Ratio] 38.68 kg/m2 Foreign [place] Work Phone: [facility] Work Phone: 11-12-2020 15:30-0400 Body surface area Derived from formula 2.01 m2 Foreign [place]ington Work Phone: [facility] Work Phone: 11-12-2020 15:30-0400 Body temperature 97.7 [degF] Foreign Ellington Work Phone: [facility] Work Phone: 11-12-2020 15:30-0400 Body weight 99.06 kg Foreign Ellington Work Phone: [facility] Work Phone: 07-02-2021 15:30-0400 Diastolic blood pressure 70 mm[Hg] Foreign Ellington Work Phone: [facility] Work Phone: 11-12-2020 15:30-0400 Heart rate 104 /min Foreign Ellington Work Phone: [facility] Work Phone: 11-12-2020 15:30-0400 SaO2% (BldA) [Mass fraction] 95 % Foreign [place] Work Phone: [facility] Work Phone: 11-12-2020 15:30-0400 Systolic blood pressure 120 mm[Hg] Foreign Ellington Work Phone: [facility] Work Phone: 11-07-2019 11:56-0400 BMI (Body Mass Index) 37.97 kg/m2 Kris Yung [facility] Work Phone: 11-07-2019 11:56-0400 Body Temperature 97.5 [degF] Kris Yung [facility] Work Phone: Comment on above: Method: Temporal 11-07-2019 11:56-0400 Body weight 97.24 kg Kris Yung [facility] Work Phone: 11-07-2019 11:56-0400 BP Diastolic 70 mm[Hg] Kris [facility]ung [facility] Work Phone: Comment on above: Location: RUE; Position: Sitting 11-07-2019 11:56-0400 BP Systolic 120 mm[Hg] Kris Yung [facility] Work Phone: Comment on above: Location: RUE; Position: Sitting 11-07-2019 11:56-0400 BSA (Body Surface Area) 1.99 m2 Kris Yung [facility] Work Phone: 11-07-2019 11:56-0400 Height 160.02 cm Kris Yung [facility] Work Phone: 11-07-2019 11:56-0400 Pulse (Heart Rate) 107 /min Kris [facility]ung [facility] Work Phone: 11-07-2019 11:56-0400 Pulse Oximetry 96 % Kris Yung [facility] Work Phone: Comment on above: Source: RA Encounters Encounter Date Encounter Type Care Provider Facility Start: 03-26-2025 ambulatory Yossi Colindres ty:[facility] Start: 03-18-2025 ambulatory UNKNOWN J PROVIDER Faci lity:[id number] Start: 03-18-2025 End: 03-18-2025 ambulatory UNKNOWN J PROVIDER Facility:[id number] Start: 03-18-2025 End: 03-18-2025 Patient encounter procedure ANSHU DAMON MD [facility] Start: 03-16-2025 End: 03-16-[address] FOREIGN ELLINGTON DO Facility:[facility] Start: 03-16-2025 End: 03-16-[address] FOREIGN ELLINGTON DO [facility] Start: 03-12-2025 End: 03-16-[address] FOREIGN ELLINGTON DO Facility:[facility] Start: 03-12-2025 End: 03-16-[address] FOREIGN ELLINGTON DO [facility] Start: 03-02-2025 End: 03-02-2025 ambulatory UNKNOWN J PROVIDER Facility:[id number] Start: 03-02-2025 End: 03-02-2025 Patient encounter procedure ANSHU DAMON MD [facility] Start: 02-28-2025 End: 03-04-[address] FOREIGN ELLINGTON DO Facility:[facility] Start: 02-28-2025 End: 03-04-2025 Outreach Lab STELLA Christen UMANZOR DO [facility] Start: 02-18-2025 End: 02-18-2025 ambulatory UNKNOWN J PROVIDER Facility:[id number] Start: 02-18-2025 End: 02-18-2025 Patient encounter procedure ANSHU DAMON MD [facility] Start: 02-04-2025 End: 02-04-[address] FOREIGN ELLINGTON DO Facility:[facility] Start: 02-04-2025 End: 02-04-2025 Patient encounter procedure ANSHU DAMON MD [facility] Start: 01-28-2025 End: 01-28-2025 ambulatory UNKNOWN J PROVIDER Facility:[id number] Start: 01-28-2025 End: 01-28-2025 Patient encounter procedure ANSHU DAMON MD [facility] Start: 01-26-2025 ambulatory UNKNOWN J PROVIDER [facility]ity[id number] Start: 01-26-2025 End: 01-26-2025 ambulatory ANSHU DAMON MD Facility:[id number] Start: 01-26-2025 End: 01-26-2025 Patient encounter procedure ANSHU DAMON MD [facility] Start: 01-21-2025 End: 01-21-2025 ambulatory UNKNOWN J PROVIDER Facility:[id number] Start: 01-11-2025 End: 01-11-2025 ambulatory TED ANSARI MD Facility:[id number] Start: 01-09-2025 End: 01-09-2025 ambulatory UNKNOWN J PROVIDER Facility:[id number] Start: 01-01-2025 End: 01-01-[address] FOREIGN ELLINGTON DO Facility:[facility] Start: 01-01-2025 End: 01-01-[address] FOREIGN ELLINGTON DO [facility] Start: 12-29-2024 End: 12-29-2024 ambulatory ANSHU DAMON MD Facility:[id number] Start: 12-23-2024 Encounter for other preprocedural examination Brooke [facility] Start: 12-23-2024 Non-patient / Non-visit Dr. Pauly Riley MD -[facility] Work Phone: Start: 12-22-2024 Non-patient / Non-visit Dr. Brooke staley MD -[facility] Work Phone: Start: 12-22-2024 End: 12-23-2024 ambulatory Yossi Riley Facility:[facility] Start: 12-22-2024 End: 12-23-2024 Evaluation and management of inpatient Dr. Yossi Burnette DO -[facility] Work Phone: Start: 12-22-2024 End: 12-23-[address] Foreign Ellington DO Work Phone: -[facility] Start: 12-15-2024 End: 12-15-2024 ambulatory ANSHU DAMON MD Facility:[id number] Start: 12-12-2024 End: 12-12-2024 [facility]ulatory [facility] Start: 12-05-2024 End: 12-05-2024 ambulatory ANSHU DAMON MD Facility:[id number] Start: 11-28-2024 End: 11-28-2024 ambulatory ANSHU DAMON MD Facility:[id number] Start: 11-27-2024 End: 11-27-2024 Emergency department patient visit HERNAN LOREDO MD [facility] Start: 11-25-2024 End: 11-25-2024 ambulatory Foreign Ellington Facility:[facility] Start: 11-25-2024 End: 11-25-2024 Non-patient / Non-visit Dr. Riri Tavarez MD -[facility] Work Phone: Start: 11-11-2024 End: 11-11-2024 ambulatory ANSHU DAMON MD Facility:[id number] Start: 11-11-2024 Non-patient / Non-visit Dr. Tracy edouard MD -[facility] Work Phone: Start: 11-05-2024 End: 11-05-[address] FOREIGN ELLINGTON DO Facility:[facility] Start: 11-05-2024 End: 11-05-2024 Patient encounter procedure LUPIS FERGUSON MD [facility] Start: 10-30-2024 End: 10-30-[address] FOREIGN ELLINGTON DO Facility:[facility] Start: 10-30-2024 Encounter for other preprocedural examination DR FOREIGN ELLINGTON DO [facility] Start: 10-30-2024 End: 10-30-[address] FOREIGN ELLINGTON DO [facility] Start: 10-30-2024 End: 10-30-[address] FOREIGN ELLINGTON DO [facility] Start: 10-29-2024 End: 10-29-2024 ambulatory ANSHU DAMON MD Facility:[id number] Start: 10-24-2024 End: 10-24-[address] FOREIGN ELLINGTON DO Facility:[facility] Start: 10-24-2024 End: 10-24-2024 Patient encounter procedure YOSSI BURNETTE DO [facility] Start: 10-15-2024 End: 10-15-2024 ambulatory ANSHU DAMON MD Facility:[id number] Start: 10-01-2024 End: 10-01-2024 ambulatory ANSHU DAMON MD Facility:[id number] Start: 09-15-2024 End: 09-15-2024 ambulatory ANSHU DMAON MD Facility:[id number] Start: 09-01-2024 End: 09-01-2024 ambulatory UNKNOWN J PROVIDER Facility:[id number] Start: 08-14-2024 End: 08-14-2024 ambulatory UNKNOWN J PROVIDER Facility:[id number] Start: 08-01-2024 End: 08-01-2024 ambulatory UNKNOWN J PROVIDER Facility:[id number] Start: 07-21-2024 End: 01-21-2025 Patient encounter procedure ANSHU DAMON MD [facility] Start: 07-21-2024 End: 07-21-2024 ambulatory ANSHU DAMON MD Facility:[id number] Start: 07-17-2024 End: 07-17-2024 ambulatory ANSHU DAMON MD Facility:[id number] Start: 07-14-2024 End: 07-14-[address] FOREIGN ELLINGTON DO Facility:[facility] Start: 07-14-2024 End: 07-14-2024 Patient encounter procedure LUPIS FERGUSON MD [facility] Start: 07-03-2024 End: 07-03-2024 ambulatory ANSHU DAMON MD Facility:[id number] Start: 06-24-2024 End: 06-24-2024 Emergency department patient visit SANDY COLVIN MD [facility] Start: 06-19-2024 End: 06-19-2024 ambulatory ANSHU DAMON MD Facility:[id number] Start: 06-05-2024 End: 06-05-2024 ambulatory ANSHU DAMON MD Facility:[id number] Start: 05-22-2024 End: 05-22-2024 ambulatory ANSHU DAMON MD Facility:[id number] Start: 05-12-2024 End: 05-12-[address] FOREIGN ELLINGTON DO Facility:[facility] Start: 05-12-2024 End: 05-12-[address] FOREIGN ELLINGTON DO [facility] Start: 05-12-2024 End: 05-12-2024 ambulatory ANSHU DAMON MD Facility:[id number] Start: 04-25-2024 End: 04-25-[address] FOREIGN ELLINGTON DO Facility:[facility] Start: 04-25-2024 End: 04-25-[address] FOREIGN ELLINGTON DO [facility] Start: 04-25-2024 End: 04-25-2024 ambulatory ANSHU DAMON MD Facility:[id number] Start: 04-14-2024 End: 04-14-[address] FOREIGN ELLINGTON DO Facility:[facility] Start: 04-14-2024 End: 04-14-[address] FOREIGN ELLINGTON DO [facility] Start: 04-14-2024 End: 04-14-2024 ambulatory ANSHU DAMON MD Facility:[id number] Start: 03-28-2024 End: 03-28-2024 ambulatory ANSHU DAMON MD Facility:[id number] Start: 03-20-2024 End: 03-20-2024 ambulatory ANSHU DAMON MD Facility:[id number] Start: 03-13-2024 End: 03-13-2025 Patient encounter procedure Office [facility] - C208 Start: 03-11-2024 End: 03-11-2024 Patient encounter procedure ALBA SOOD MD [facility] Start: 03-04-2024 End: 03-04-2024 Patient encounter procedure ALBA SOOD MD [facility] Start: 01-10-2024 End: 01-10-[address] FOREIGN ELLINGTON DO Facility:B Start: 01-10-2024 End: 01-10-2024 Patient encounter procedure LUPIS FERGUSON MD [facility] Start: 01-02-2024 End: 01-06-[address] FOREIGN ELLINGTON DO Facility:B Start: 01-02-2024 End: 01-06-2024 Outreach Lab ADDIS GUNN QUALITY ASSURANCE ADVISOR-TEMPERATURE REGULATOR PYROMETER [facility] Start: 12-06-2023 End: 12-06-[address] FOREIGN ELLINGTON DO Facility:B Start: 12-06-2023 End: 12-06-2023 Patient encounter procedure LUPIS FERGUSON MD [facility] Start: 12-05-2023 End: 12-05-2023 Emergency department patient visit SANDY COLVIN MD [facility] Start: 11-23-2023 End: 11-27-[address] FOREIGN ELLINGTON DO Facility:B Start: 11-23-2023 End: 11-27-2023 Outreach Lab LUPIS FERGUSON MD [facility] Start: 11-13-2023 End: 11-13-[address] FOREIGN ELLINGTON DO Facility:B Start: 11-08-2023 End: 11-08-[address] FOREIGN ELLINGTON DO Facility:B Start: 11-07-2023 End: 11-11-2023 Outreach Lab ADDIS GUNN QUALITY ASSURANCE ADVISOR-TEMPERATURE REGULATOR PYROMETER [facility] Start: 11-07-2023 End: 11-11-[address] FOREIGN ELLINGTON DO Facility:B Start: 11-07-2023 End: 11-07-2023 Patient encounter procedure ADDIS GUNN QUALITY ASSURANCE ADVISOR-TEMPERATURE REGULATOR PYROMETER [facility] Start: 09-14-2023 End: 02-04-2025 Patient encounter procedure Office [facility] - C208 Start: 08-13-2023 End: 08-13-[address] FOREIGN ELLINGTON DO Facility:B Start: 08-13-2023 End: 08-13-2023 Patient encounter procedure BRITT JAMES CNP [facility] Start: 08-06-2023 End: 08-06-[address] FOREIGN ELLINGTON DO Facility:B Start: 08-06-2023 End: 08-06-2023 Patient encounter procedure BRITT JAMES TEMPERATURE REGULATOR PYROMETER [facility] Start: 08-03-2023 End: 08-07-[address] FOREIGN ELLINGTON DO Facility:B Start: 08-03-2023 End: 08-07-2023 Encounter for general adult medical examination without abnormal findings DR FOREIGN ELLINGTON DO Facility:B Start: 08-03-2023 End: 08-07-[address] FOREIGN ELLINGTON DO [facility] Start: 07-24-2023 End: 07-24-2023 ambulatory [facility] Work Phone: Start: 07-24-2023 End: 07-24-2023 Patient encounter procedure [facility]-Radiology, [facility] Work Phone: Start: 07-02-2023 End: 07-02-[address] FOREIGN ELLINGTON DO Facility:B Start: 07-02-2023 End: 07-02-2023 Patient encounter procedure LUPIS FERGUSON MD [facility] Start: 05-22-[address] FOREIGN ELLINGTON DO Facili ty:B Start: 05-22-2023 End: 05-22-[address] FOREIGN ELLINGTON DO Facility:B Start: 05-22-2023 End: 05-22-2023 Encounter for preprocedural laboratory examination BRITT JAMES TEMPERATURE REGULATOR PYROMETER Facility:B Start: 05-22-2023 End: 05-22-2023 Patient encounter procedure [facility] Start: 05-18-2023 End: 05-18-[address] FOREIGN ELLINGTON DO Facility:B Start: 05-18-2023 End: 05-18-[address] FOREIGN ELLINGTON DO [facility] Start: 03-30-2023 End: 03-30-[address] FOREIGN ELLINGTON DO Facility:B Start: 03-30-2023 End: 03-30-[address] FOREIGN ELLINGTON DO [facility] Start: 03-14-2023 End: 03-14-[address] FOREIGN ELLINGTON DO Facility:B Start: 03-14-2023 End: 03-14-2023 Patient encounter procedure LUPIS FERGUSON MD [facility] Start: 03-02-2023 End: 05-29-[address] FOREIGN ELLINGTON DO Facility:B Start: 02-27-2023 End: 02-27-[address] FOREIGN ELLINGTON DO Facility:B Start: 02-27-2023 End: 02-27-2023 Patient encounter procedure MARCELO JOHNSON APRN-TEMPERATURE REGULATOR PYROM[employer]ER [facility] Start: 01-31-2023 End: 05-14-[address] FOREIGN ELLINGTON DO Facility:B Start: 01-25-2023 End: 01-25-[address] FOREIGN ELLINGTON DO Facility:B Start: 01-25-2023 End: 01-25-[address] FOREIGN ELLINGTON DO [facility] Start: 01-23-2023 End: 01-23-2023 ambulatory [facility] Work Phone: Start: 01-23-2023 End: 01-23-2023 Patient encounter procedure [facility] Work Phone: Start: 01-01-2023 End: 01-01-[address] FOREIGN ELLINGTON DO [facility] [facility] Start: 12-28-2022 End: 12-28-[address] FOREIGN ELLINGTON DO [facility] Start: 12-08-2022 End: 12-12-[address] FOREIGN ELLINGTON DO [facility] Start: 08-31-2022 End: 09-04-[address] FOREIGN ELLINGTON DO [facility] Start: 08-22-2022 End: 08-22-2022 Patient encounter procedure JONEL ORELLANA [facility] Start: 07-24-2022 End: 07-27-[address] FOREIGN ELLINGTON DO [facility] Start: 07-14-2022 AUDIT Foreign Ellington Work Phone: [facility] Work Phone: Start: 07-10-[address] Maximiliano Wan Facility:[id number] Start: 07-10-2022 FUV, Provider: Maximiliano Wan, Status: Pen, Time: 1:00 PM Foreign Ellington Work Phone: [facility] Work Phone: Start: 07-10-2022 Patient encounter procedure Foreign Cat Ellington Work Phone: [facility] [place] Work Phone: Start: 07-07-2022 Office outpatient vi sit 25 minutes Foreign Ellington Work Phone: [facility] Work Phone: Start: 07-07-2022 Patient encounter procedure Foreign Ellington Work Phone: [facility] Work Phone: Start: 07-07-[address] Kris Rahman acility:[id number] Start: 06-29-[address] Maximiliano Wan Facility:[id number] Start: 06-12-2022 Office outpatient ne w 30 minutes Foreign Ellington Work Phone: [facility] Work Phone: Start: 06-12-2022 Patient encounter procedure Foreign Ellington Work Phone: [facility] Work Phone: Start: 06-12-[address] Maximiliano Wan Facility:[id number] Start: 06-08-2022 End: 06-08-[address] FOREIGN ELLINGTON DO [facility] Start: 06-07-2022 Rx Renewal Foreign Ellington Work Phone: [employer] [facility] Work Phone: Start: 06-01-2022 End: 06-01-[address] FOREIGN ELLINGTON DO [facility] Start: 05-16-2022 End: 05-16-2022 ambulatory [facility] Work Phone: Start: 05-16-2022 End: 05-16-2022 Patient encounter procedure [facility] Start: 04-12-2022 End: 04-16-2022 Outreach Lab PROSPER BRANDT APRN-TEMPERATURE REGULATOR PYROMETER [facility] Start: 03-23-2022 End: 03-23-2022 Patient encounter procedure STELLA PRIYANKA TEMPERATURE REGULATOR PYROMETER [facility] Start: 03-23-2022 End: 03-23-2022 Preprocedural examination done STELLA MARTINEZLICHA TEMPERATURE REGULATOR PYROMETER [facility] Start: 02-23-2022 End: 02-23-2022 Patient encounter procedure [facility] Start: 01-06-2022 Office outpatient vi sit 15 minutes Foreign Ellington Work Phone: [employer] [facility] Work Phone: Start: 01-06-2022 Patient encounter procedure Foreign Ellington Work Phone: [employer] [facility] Work Phone: Start: 01-06-[address] Kris Rahman acility:[id number] Start: 12-19-2021 End: 03-15-[address] RIRI DICKSON DO [facility] Start: 12-13-2021 End: 12-13-2021 Patient encounter procedure [facility] Start: 12-12-2021 End: 12-12-[address] FOREIGN ELLINGTON DO [facility] Start: 12-02-2021 End: 12-02-2021 Emergency department patient visit MOHINDER METZ MD [facility] Start: 12-01-2021 End: 12-01-[address] FOREIGN ELLINGTON DO [facility] Start: 11-25-2021 End: 11-25-[address] FOREIGN ELLINGTON DO [facility] Start: 11-11-2021 End: 12-13-[address] FOREIGN ELLINGTON DO [facility] Start: 11-04-2021 End: 11-04-[address] FOREIGN ELLINGTON DO [facility] Start: 11-01-2021 End: 11-01-[address] FOREIGN ELLINGTON DO [facility] Start: 10-22-2021 Rx Cheri Ellington Work Phone: [facility] Work Phone: Start: 09-26-2021 End: 09-26-[address] FOREIGN ELLINGTON DO [facility] Start: 08-22-2021 End: 08-22-[address] FOREIGN ELLINGTON DO [facility] Start: 07-31-2021 End: 07-31-2021 Emergency department patient visit DR PAVAN KHOURY MD [facility] Start: 07-19-2021 End: 07-19-[address] FOREIGN ELLINGTON DO [facility] Start: 07-08-2021 End: 07-08-2021 Emergency department patient visit DR CHUNG LUJAN MD [facility] Start: 06-06-2021 End: 06-06-[address] FOREIGN ELLINGTON DO [facility] Start: 05-16-2021 End: 05-16-[address] FOREIGN ELLINGTON DO [facility] Start: 04-28-2021 End: 04-28-[address] FOREIGN ELLINGTON DO [facility] Start: 04-25-2021 End: 04-25-[address] FOREIGN ELLINGTON DO [facility] Start: 03-03-2021 End: 03-03-[address] FOREIGN ELLINGTON DO [facility] Start: 11-12-2020 Office outpatient vi sit 15 minutes Foreign Ellington Work Phone: [facility] Work Phone: Start: 11-12-2020 Patient encounter procedure Foreign Ellington Work Phone: [facility] Work Phone: Start: 11-03-2020 Rx Renewal Foreign Ellington Work Phone: [facility] Work Phone: Start: 11-07-2019 Patient encounter procedure Kris Yung [facility] Work Phone: Start: 05-16-2019 Patient encounter procedure Kris Yung [facility] Work Phone: Start: 02-13-2019 Patient encounter procedure Kris Yung [facility] Work Phone: Start: 12-17-2018 Patient encounter procedure Kris Yung [facility] Work Phone: Start: 11-01-2018 Patient encounter procedure Kris Yung [facility] Work Phone: Start: 07-23-2018 Patient encounter procedure Kris Yung [facility] Work Phone: Start: 07-09-2018 Patient encounter procedure Kris Yung [facility] Work Phone: Start: 06-07-2018 Patient encounter procedure Kris Yung [facility] Work Phone: Start: 05-21-2018 Patient encounter procedure Kris Yung [facility] Work Phone: Start: 03-06-2018 Patient encounter procedure Kris Yung [facility] Work Phone: Start: 02-15-2018 Patient encounter procedure Kris Yung [facility] Work Phone: Start: 12-05-2017 Patient encounter procedure Kirs Yung [facility] Work Phone: Start: 11-02-2017 Patient encounter procedure Kris Yung [facility] Work Phone: Start: 10-19-2017 Patient encounter procedure Krisrosy Yung [facility] Work Phone: Start: 09-04-2017 Patient encounter procedure Kris Yung [facility] Work Phone: Start: 07-20-2017 Patient encounter procedure Kris Yung [facility] Work Phone: Start: 03-12-2017 Ambulatory [facility] Patient encounter procedure Foreign Ellington Work Phone: [facility] Work Phone: Procedures Date Procedure Procedure Detail Performing Clinician Start: 12-23-[address] Foreign Ellington DO Work Phone: Start: 12-22-2024 Total replacement of right knee joint Dr. Foreign Ellington DO Work Phone: Start: 11-25-2024 Methicillin resistan t Staphylococcus aureus screening test Dr. Foreign Ellington DO Work Phone: Start: 07-24-2023 Radiologic examinati on of lumbosacral spine, complete, with bending views Start: 07-17-2023 Cardiac catheterization ADDIS MUNGUIA Comment on above: Right Heart, Left ve ntricle pressures Start: 07-17-2023 Right Heart Cardiac Catheterization, left ventricle pressures ANSHU DAMON MD Start: 01-23-2023 Diagnostic radiograp hy of abdomen Start: 05-16-2022 Plain x-ray of pelvi s and lower extremity Start: 02-23-2022 X-ray of lumbosacral spine Start: 12-13-2021 CT of pelvis without contrast Start: 12-28-2020 Cath placement & njx coronary art angio img s&i ANSHU DAMON MD Start: 04-27-2015 LEFT UPPER BACK SOFT TISUUE MASS EXCISION ANSHU DAMON MD Start: 04-27-2015 Mass of back (finding) ADDIS GUNN QUALITY ASSURANCE ADVISOR-TEMPERATURE REGULATOR PYROMETER Start: 05-14-[address] FOREIGN ELLINGTON DO Abdominal hysterectomy DR TAVO ELLINGTON DO Back operation ANSHU RUTHERFORD MD H/O: hysterectomy S/P hysterectomy ANSHU DAMON MD H/O: surgery History of parat hyroid surgery( Confirmed ) DR FOREIGN ELLINGTON DO Heart structure (bod y structure) DR FOREIGN ELLINGTON DO Comment on above: fixed hole in heart History of ASD-surge ry done to repair hole. ANSHU DAMON MD History of Congenita l ASD Repair Percutaneous Transcatheter Closure Kris Yung Comment on above: ASD repair in 2010; History of Lower Jaz k Surgery Kris Yung Comment on above: low back surgery in 2009; History of Parathyro id Complete Parathyroidectomy Kris Yung Comment on above: parathyroidectomy in 2007; Hysterectomy Kris Yung Comment on above: at age 40; Hysterectomy ANSHU JORDAN MD Injection of trigger points DR FOREIGN ELLINGTON DO Kidney stone (disorder) DR Christen DICKSON DO LEFT total hip replacement T ROBIN DAMON MD Local anesthetic lum bar epidural block DR FOREIGN ELLINGTON DO Comment on above: pt states 95% relief until now Lumbar (qualifier value) DR FOREIGN ELLINGTON DO Parathyroids removed (2) YANY DAMON MD RIGHT total hip replacement ANSHU DAMON MD Thyroid structure (b david structure) DR FOREIGN ELLINGTON DO Total replacement of hip John gallegos Dilshad Total replacement of hip DR FOREIGN ELLINGTON DO Comment on above: bilareal Plan of Treatment Date Care Activity Detail Author Start: 12-23-2024 Patient discharge [facility] Start: 12-23-2024 Referral to service [facility] Start: 12-22-2024 End: 12-22-2024 [facility] Start: 12-22-2024 Care regimes management [facility] Start: 12-22-2024 Notification of physician [facility] Start: 12-22-2024 Application of inter mittent pneumatic compression device [facility] Start: 12-22-2024 Following clinical p athway protocol [facility] Start: 12-22-2024 Provision of overbed trapeze [facility] Start: 12-22-2024 Recommendation to co ntinue with treatment [facility] Start: 12-22-2024 Admission procedure [facility] Start: 12-22-2024 Ambulation therapy management [facility] Start: 12-22-2024 Application of device W [facility] Start: 12-22-2024 Application of elast ic bandage [facility] Start: 12-22-2024 Assessment of risk o f venous thromboembolism [facility] Start: 12-22-2024 Catheterization of vein [facility] Start: 12-22-2024 Consultation [facility] Start: 12-22-2024 Exercises [facility] Start: 12-22-2024 Incentive spirometry [facility] Start: 12-22-2024 Introduction of urin alyx catheter [facility] Start: 12-22-2024 Measuring intake and output [facility] Start: 12-22-2024 Neurovascular assessment [facility] Start: 12-22-2024 Patient education [facility] Start: 12-22-2024 Procedure discontinued [facility] Start: 12-22-2024 Provision of activit y privileges [facility] Start: 12-22-2024 Referral to occupati onal therapist [facility] Start: 12-22-2024 End: 12-22-2024 Referral to service [facility] Start: 12-22-2024 Vital signs measurements [facility] Start: 12-22-2024 Wound care [facility] Start: 12-22-2024 [facility] Start: 01-08-2023 FUV, Provider: Kris Yung, Status: Pen, Time: 11:00 AM FUV, Provider: Kris Yung, Status: Pen, Time: 11:00 AM -[facility] Work Phone: Start: 10-06-2022 FUV, Provider: Kris Yung, Status: Pen, Time: 11:30 AM FUV, Provider: Kris Yung, Status: Pen, Time: 11:30 AM -[facility] Work Phone: Start: 07-10-2022 FUV, Provider: Maximiliano Wan, Status: Pen, Time: 1:00 PM FUV, Provider: Maximiliano Wan, Status: Pen, Time: 1:00 PM -[facility] Work Phone: Start: 07-07-2022 EPV, Provider: Kris Yung, Status: Pen, Time: 3:30 PM EPV, Provider: Kris Yung, Status: Pen, Time: 3:30 PM -[facility] Work Phone: Start: 06-12-2022 NPV, Provider: Maximiliano Wan, Status: Pen, Time: 1:30 PM NPV, Provider: Maximiliano Wan, Status: Pen, Time: 1:30 PM [facility] Work Phone: Start: 11-17-2021 FUV, Provider: Kris Yung, Status: Pen, Time: 11:00 AM FUV, Provider: Kris Yung, Status: Pen, Time: 11:00 AM [facility] Work Phone: Start: 11-12-2020 FUV, Provider: Kris Yung, Status: Pen, Time: 3:30 PM FUV, Provider: Kris Yung, Status: Pen, Time: 3:30 PM [facility] Work Phone: Immunizations Immunization Date Immunization Notes Care Provider [facility] 02-23-2024 influenza virus vaccine, unspecified formulation ALBA SOOD MD [facility] 04-07-2023 SARS-CoV-2 (COVID-19 ) [id number] DR FOREIGN ELLINGTON DO [facility] 04-04-2023 Pneumococcal conjuga te PCV20, polysaccharide [id number] conjugate, adjuvant, PF; Translations: [Prevnar 20] DR FOREIGN ELLINGTON DO [facility] 02-21-2023 RSV vaccine preF3, recombinant LUPIS FERGUSON MD [facility] 01-25-2023 influenza virus vaccine, unspecified formulation MARCELO MUNGUIA [facility] 02-05-2022 Fluzone High-Dose Quadrivalent 0.7 ML Intramuscular Suspension Prefilled Syringe Foreign Ellington Work Phone: [facility] Work Phone: 02-05-2022 influenza virus vaccine, unspecified formulation DR RIRI DICKSON DO [facility] 11-01-2021 tetanus and diphther ia toxoids, adsorbed, preservative free, for adult use (5 Lf of tetanus toxoid and 2 Lf of diphtheria toxoid); Translations: [Tenivac] DR FOREIGN ELLINGTON DO [facility] 11-01-2021 tetanus and diphther ia toxoids, adsorbed, preservative free, for adult use (5 Lf of tetanus toxoid and 2 Lf of diphtheria toxoid); Translations: [Tenivac] DR FOREIGN ELLINGTON DO [facility] 08-13-2021 SARS-CoV-2 mRNA (eqgfvelaong-kcja-ohgd ose) vaccine DR FOREIGN ELLINGTON DO [facility] 02-14-2021 Fluad Quadrivalent 0 .5 ML Intramuscular Prefilled Syringe Foreign Ellington Work Phone: [facility] Work Phone: 02-14-2021 influenza virus vaccine, unspecified formulation DR FOREIGN ELLINGTON DO [facility] 02-14-2021 SARS-CoV-2 mRNA (tozinameran) vaccine DR FOREIGN ELLINGTON DO [facility] Comment on above: Result Comment: 2020: [id number] 12-09-[address] FOREIGN ELLINGTON DO [facility] 09-21-2020 zoster vaccine recombinant Foreign Ellington Work Phone: [facility] Work Phone: Comment on above: Result Comment: [place], [place] 07-10-2020 Pfizer-BioNTech COVID-19 Vacc 30 MCG/0.3ML Intramuscular Suspension Foreign Ellington Work Phone: [facility] Work Phone: Comment on above: Result Comment: [facility]3], COVID 19 mRNA, LNP-S PF 30mcg/0.3mL dose 06-19-2020 Pfizer-BioNTech COVID-19 Vacc 30 MCG/0.3ML Intramuscular Suspension Foreign Ellington Work Phone: [facility] Work Phone: Comment on above: Result Comment: [facility]3] 01-22-2020 influenza, injectabl e, quadrivalent, preservative free; Translations: [Fluarix PF Quadrivalent ] Foreign Ellington Work Phone: [facility] Work Phone: 02-13-2019 influenza virus vaccine, unspecified formulation DR FOREIGN ELLINGTON DO [facility] 02-13-2019 influenza, injectabl e, quadrivalent, preservative free; Translations: [Fluarix Quadrivalent 0.5 ML Intramuscular Suspension Prefilled Syringe] [facility] Work Phone: Comment on above: Series: 02-15-2018 influenza virus vaccine, unspecified formulation DR FOREIGN ELLINGTON DO [facility] 02-15-2018 influenza, high dose seasonal, preservative-free; Translations: [Fluzone High-Dose 0.5 ML Intramuscular Suspension Prefilled Syringe] Kris Nekl [facility] Work Phone: Comment on above: Series: 01-11-2017 influenza virus vaccine, unspecified formulation DR FOREIGN ELLINGTON DO [facility] 01-11-2017 influenza, high dose seasonal, preservative-free; Translations: [Fluzone High-Dose 0.5 ML Intramuscular Suspension Prefilled Syringe] [facility] Work Phone: Comment on above: Series: 01-19-2016 influenza virus vaccine, unspecified formulation DR FOREIGN ELLINGTON DO [facility] 01-19-2016 influenza, high dose seasonal, preservative-free Foreign Ellington Work Phone: [facility] Work Phone: 02-04-2015 influenza virus vaccine, unspecified formulation DR FOREIGN ELLINGTON DO [facility] 02-04-2015 influenza, high dose seasonal, preservative-free Foreign Ellington Work Phone: [facility] Work Phone: 01-12-2015 influenza virus vaccine, unspecified formulation Foreign Ellington Work Phone: [facility] Work Phone: Comment on above: Series: 01-12-2015 influenza, seasonal, injectable [facility] Work Phone: 11-07-2014 pneumococcal polysaccharide vaccine, 23 valent [facility]: Comment on above: Series: 10-20-2014 pneumococcal conjuga te vaccine, 13 valent; Translations: [Prevnar 13 Intramuscular Suspension] Kris Nekl [facility] Work Phone: Comment on above: Series: 01-29-2014 influenza virus vaccine, unspecified formulation DR FOREIGN ELLINGTON DO [facility] 01-29-2014 influenza, high dose seasonal, preservative-free Foreign Ellington Work Phone: [facility] Work Phone: 01-12-2014 influenza virus vaccine, unspecified formulation Foreign Ellington Work Phone: [facility] Work Phone: Comment on above: Series: 01-12-2014 influenza, seasonal, injectable Kris Yung [facility] Work Phone: 11-01-2013 pneumococcal polysaccharide vaccine, 23 valent [facility]: Comment on above: Series: 08-26-2013 tetanus toxoid, reduced diphtheria toxoid, and acellular pertussis vaccine, adsorbed; Translations: [[facility]dap (Adacel)] [facility] above: Series: 02-14-2013 influenza virus vaccine, unspecified formulation Foreign Ellington Work Phone: [facility] Work Phone: Comment on above: Series: 02-14-2013 influenza, seasonal, injectable Kris Yung [facility] Work Phone: 06-03-2012 zoster vaccine, live DR FOREIGN ELLINGTON DO [facility] 05-30-2012 zoster vaccine, live [facility] Work Phone: Comment on above: Series: 02-12-2012 influenza virus vaccine, unspecified formulation Foreign Cat Ellington Work Phone: -[facility] Work Phone: Comment on above: Series: 02-12-2012 influenza, seasonal, injectable Kris Yung [facility] Work Phone: Payers Date Payer Category Payer Self-pay [id number] 2008 Medicare [id number] 2008 Medicare [id number] 2008 Private Health Insurance [id number] [id number] 2008 Unknown [id number] 1948 Unknown [id number] 2.16. 840.1.510789.3.579.2.356 1948 Unknown [id number] 2.16. 840.1.185364.3.579.2.356 1948 Unknown [id number] 2.16.8 40.1.494678.3.579.2.1068 1948 Unknown [id number] 2.16.8 40.1.856966.3.579.2.1068 1948 Unknown [id number] 2.16.8 40.1.499113.3.579.2.1068 1948 Unknown [id number] 2.16.8 40.1.783169.3.579.2.627 1948 Unknown [id number] 2.16.8 40.1.210489.3.579.2.627 1948 Unknown [id number] 2.16.8 40.1.553119.3.579.2.627 1948 Unknown [id number] 2.16.8 40.1.454102.3.579.2.62 1948 Unknown [id number] 2.16.8 40.1.708717.3.579.2.627 1948 Unknown [id number] 2.16.8 40.1.968663.3.579.2.62 1948 Unknown [id number] 2.16.8 40.1.979802.3.579.2.62 1948 Unknown [id number] 2.16.8 40.1.556060.3.579.2. 1948 Unknown [id number] 2.16.8 40.1.911707.3.579.2. 1948 Unknown [id number] 2.16.8 40.1.140757.3.579.2. 1948 Unknown [id number] 2.16.8 40.1.269081.3.579.2. 1948 Unknown [id number] 2.16.8 40.1.765625.3.579.2.62 1948 Unknown [id number] 2.16.8 40.1.326777.3.579.2. 1948 Unknown [id number] 2.16.8 40.1.486166.3.579.2.62 1948 Unknown [id number] 2.16.8 40.1.372895.3.579.2.62 1948 Unknown [id number] 2.16.8 40.1.381424.3.579.2.62 1948 Unknown [id number] 2.16.8 40.1.042266.3.579.2.62 1948 Unknown [id number] 2.16.8 40.1.239579.3.579.2.627 1948 Unknown [id number] 2.16.8 40.1.564017.3.579.2. 1948 Unknown [id number] 2.16.8 40.1.678916.3.579.2.627 1948 Unknown [id number] 2.16.8 40.1.750936.3.579.2. 1948 Unknown [id number] 2.16.8 40.1.704699.3.579.2. 1948 Unknown [id number] 2.16. 840.1.850377.3.579.2. 1948 Unknown [id number] 2.16. 840.1.062341.3.579.2. 1948 Unknown [id number] 2.16. 840.1.330525.3.579.2. 1948 Unknown [id number] 2.16. 840.1.560659.3.579.2. 1948 Unknown [id number] 2.16. 840.1.300878.3.579.2. 1948 Unknown [id number] 2.16. 840.1.037967.3.579.2. 1948 Unknown [id number] 2.16. 840.1.720387.3.579.2. 1948 Unknown [id number] 2.16. 840.1.779282.3.579.2. 1948 Unknown [id number] 2.16. 840.1.443845.3.579.2. 1948 Unknown [id number] 2.16.8 40.1.149060.3.579.2. 1948 Unknown [id number] 2.16.8 40.1.880145.3.579.2.627 1948 Unknown [id number] 2.16.8 40.1.415512.3.579.2.627 1948 Unknown [id number] 2.16.8 40.1.553103.3.579.2.627 1948 Unknown [id number] 2.16.8 40.1.096744.3.579.2.627 1948 Unknown [id number] 2.16.8 40.1.971972.3.579.2.159 1948 Unknown [id number] 2.16.8 40.1.096909.3.579.2.159 1948 Unknown [id number] 2.16.8 40.1.670071.3.579.2.159 1948 Unknown [id number] 2.16.8 40.1.458031.3.579.2.159 1948 Unknown [id number] 2.16.8 40.1.220792.3.579.2.159 1948 Unknown [id number] 2.16.8 40.1.457220.3.579.2.159 1948 Unknown [id number] 2.16.8 40.1.920542.3.579.2.159 1948 Unknown [id number] 2.16.8 40.1.345318.3.579.2.159 1948 Unknown [id number] 2.16.8 40.1.142059.3.579.2.159 1948 Unknown [id number] 2.16.8 40.1.412650.3.579.2.159 1948 Unknown [id number] 2.16.8 40.1.115619.3.579.2.159 1948 Unknown [id number] 2.16.8 40.1.280621.3.579.2.159 1948 Unknown [id number] 2.16.8 40.1.866197.3.579.2.159 1948 Unknown [id number] 2.16.8 40.1.601598.3.579.2.159 1948 Unknown [id number] 2.16.8 40.1.501836.3.579.2.159 1948 Unknown [id number] 2.16.8 40.1.666510.3.579.2.159 1950 Unknown [id number] 2.16.8 40.1.397757.3.579.2.159 1950 Unknown [id number] 2.16.8 40.1.683040.3.579.2.159 1948 Unknown [id number] 2.16.8 40.1.811481.3.579.2.159 1950 Unknown [id number] 2.16.8 40.1.469883.3.579.2.159 1948 Unknown [id number] 2.16.8 40.1.460081.3.579.2.159 1948 Unknown [id number] 2.16.8 40.1.365679.3.579.2.159 1948 Unknown [id number] 2.16.8 40.1.210722.3.579.2.159 1948 Unknown [id number] 2.16.8 40.1.159778.3.579.2.159 1948 Unknown [id number] 2.16.8 40.1.990800.3.579.2.159 1948 Unknown [id number] 2.16.8 40.1.707169.3.579.2.159 1948 Unknown [id number] 2.16.8 40.1.434289.3.579.2.159 1948 Unknown [id number] 2.16.8 40.1.633151.3.579.2.159 1948 Unknown [id number] 2.16.8 40.1.717830.3.579.2.159 1948 Unknown [id number] 2.16.8 40.1.326151.3.579.2.159 1948 Unknown [id number] 2.16.8 40.1.474588.3.579.2.159 1948 Unknown [id number] 2.16.8 40.1.662179.3.579.2.159 1948 Unknown [id number] 2.16.8 40.1.163397.3.579.2.159 1948 Unknown [id number] 2.16.8 40.1.677026.3.579.2.159 1948 Unknown [id number] 2.16.8 40.1.882138.3.579.2.159 1948 Unknown [id number] 2.16.8 40.1.165512.3.579.2.159 Unknown Unknown [id number] 2.16.8 40.1.092531.3.579.2.462 Unknown [id number] 2.16.8 40.1.774586.3.579.2.462 Unknown [id number] 2.16.8 40.1.831603.3.579.2.462 Unknown [id number] 2.16.8 40.1.867717.3.579.2.462 Unknown [id number] 2.16.8 40.1.907853.3.579.2.462 Social History Date Type Detail Facility Marital History - Currently Marital History - Currently -[facility] 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; Start: 05-09-2019 End: 04-28-2021 Never smoked tobacco (finding) [facility] Start: 1950 Sex Assigned At Female A [facility] Start: 12-21-2021 End: 12-21-2021 Tobacco smoking status NHIS Unknown if ever smoked [facility] Sexual Orientation [place] Curtis dasilva [facility] Start: 09-05-2004 End: 02-26-2020 Sex Female (finding) [facility] Not [facility] Start: 04-18-2015 Tobacco smoking status Never smoker [facility] NEGATED: Highlighted row - [facility] Work Phone: Medical Equipment Procedure Code Equipment Code Equipment Origin al Text Equipment Identifier Dates See Instructions , Blood glucose test strips . Test Blood sugar 1x a day E11.65, # 50 EA, 2 Refill(s), Pharmacy: [id number], 162, cm, 03/13/23 13:53:00 EDT, Height, 94.8, kg, 03/13/23 13:53:00 EDT, Dosing Weight Start: 03-14-2023 See Instructions , Blood glucose test strips . Test Blood sugar 1x a day E11.65, # 50 EA, 2 Refill(s), Pharmacy: [id number], 162, cm, 03/13/23 13:53:00 EDT, Height, 94.8, kg, 03/13/23 13:53:00 EDT, Dosing Weight Start: 03-14-2023 See Instructions , Blood glucose test strips . Test Blood sugar 1x a day E11.65, # 50 EA, 2 Refill(s), Pharmacy: [id number], 162, cm, 03/13/23 13:53:00 EDT, Height, 94.8, kg, 03/13/23 13:53:00 EDT, Dosing Weight Start: 03-14-2023 See Instructions , Blood glucose test strips . Test Blood sugar 1x a day E11.65, # 50 EA, 2 Refill(s), Pharmacy: [id number], 162, cm, 03/13/23 13:53:00 EDT, Height, 94.8, kg, 03/13/23 13:53:00 EDT, Dosing Weight Start: 11-01-2023 See Instructions , Blood glucose test strips . Test Blood sugar 1x a day E11.65, # 50 EA, 2 Refill(s), Pharmacy: [facility]/pharmacy #[id number], 162, cm, 03/13/23 13:53:00 EDT, Height, 94.8, kg, 03/13/23 13:53:00 EDT, Dosing Weight Start: 03-14-2023 See Instructions , Blood glucose test strips . Test Blood sugar 1x a day E11.65, # 50 EA, 2 Refill(s), Pharmacy: [facility]/pharmacy #4605, 162, cm, 03/13/23 13:53:00 EDT, Height, 94.8, kg, 03/13/23 13:53:00 EDT, Dosing Weight Start: 03-14-2023 See Instructions , Blood glucose test strips . Test Blood sugar 1x a day E11.65, # 50 EA, 2 Refill(s), Pharmacy: [facility]/pharmacy #4605, 162, cm, 03/13/23 13:53:00 EDT, Height, 94.8, kg, 03/13/23 13:53:00 EDT, Dosing Weight Start: 03-14-2023 See Instructions , Blood glucose test strips . Test Blood sugar 1x a day E11.65, # 50 EA, 2 Refill(s), Pharmacy: [facility]/pharmacy #4605, 162, cm, 03/13/23 13:53:00 EDT, Height, 94.8, kg, 03/13/23 13:53:00 EDT, Dosing Weight Start: 03-14-2023 See Instructions , Blood glucose test strips . Test Blood sugar 1x a day E11.65, # 50 EA, 2 Refill(s), Pharmacy: [facility]/pharmacy #4605, 162, cm, 03/13/23 13:53:00 EDT, Height, 94.8, kg, 03/13/23 13:53:00 EDT, Dosing Weight Start: 03-14-2023 See Instructions , Blood glucose test strips . Test Blood sugar 1x a day E11.65, # 50 EA, 2 Refill(s), Pharmacy: [facility]/pharmacy #4605, 162, cm, 03/13/23 13:53:00 EDT, Height, 94.8, kg, 03/13/23 13:53:00 EDT, Dosing Weight Start: 03-14-2023 See Instructions , Blood glucose test strips . Test Blood sugar 1x a day E11.65, # 50 EA, 2 Refill(s), Pharmacy: [facility]/pharmacy #4605, 162, cm, 03/13/23 13:53:00 EDT, Height, 94.8, kg, 03/13/23 13:53:00 EDT, Dosing Weight Start: 03-14-2023 See Instructions , Blood glucose test strips . Test Blood sugar 1x a day E11.65, # 50 EA, 2 Refill(s), Pharmacy: [facility]/pharmacy #4605, 162, cm, 03/13/23 13:53:00 EDT, Height, 94.8, kg, 03/13/23 13:53:00 EDT, Dosing Weight Start: 03-14-2023 See Instructions , Blood glucose test strips . Test Blood sugar 1x a day E11.65, # 50 EA, 2 Refill(s), Pharmacy: [facility]/pharmacy #4605, 162, cm, 03/13/23 13:53:00 EDT, Height, 94.8, kg, 03/13/23 13:53:00 EDT, Dosing Weight Start: 03-14-2023 See Instructions , Blood glucose test strips . Test Blood sugar 1x a day E11.65, # 50 EA, 2 Refill(s), Pharmacy: [facility]/pharmacy #4605, 162, cm, 03/13/23 13:53:00 EDT, Height, 94.8, kg, 03/13/23 13:53:00 EDT, Dosing Weight Start: 03-14-2023 See Instructions , Blood glucose test strips . Test Blood sugar 1x a day E11.65, # 50 EA, 2 Refill(s), Pharmacy: [facility]/pharmacy #4605, 162, cm, 03/13/23 13:53:00 EDT, Height, 94.8, kg, 03/13/23 13:53:00 EDT, Dosing Weight Start: 03-14-2023 See Instructions , Blood glucose test strips . Test Blood sugar 1x a day E11.65, # 50 EA, 2 Refill(s), Pharmacy: [facility]/pharmacy #4605, 162, cm, 03/13/23 13:53:00 EDT, Height, 94.8, kg, 03/13/23 13:53:00 EDT, Dosing Weight Start: 03-14-2023 See Instructions , Blood glucose test strips . Test Blood sugar 1x a day E11.65, # 50 EA, 2 Refill(s), Pharmacy: [facility]/pharmacy #4605, 162, cm, 03/13/23 13:53:00 EDT, Height, 94.8, kg, 03/13/23 13:53:00 EDT, Dosing Weight Start: 03-14-2023 See Instructions , Blood glucose test strips . Test Blood sugar 1x a day E11.65, # 50 EA, 2 Refill(s), Pharmacy: [facility]/pharmacy #4605, 162, cm, 03/13/23 13:53:00 EDT, Height, 94.8, kg, 03/13/23 13:53:00 EDT, Dosing Weight Start: 03-14-2023 See Instructions , Blood glucose test strips . Test Blood sugar 1x a day E11.65, # 50 EA, 2 Refill(s), Pharmacy: [facility]/pharmacy #4605, 162, cm, 03/13/23 13:53:00 EDT, Height, 94.8, kg, 03/13/23 13:53:00 EDT, Dosing Weight Start: 03-14-2023 See Instructions , Blood glucose test strips . Test Blood sugar 1x a day E11.65, # 50 EA, 2 Refill(s), Pharmacy: [facility]/pharmacy #4605, 162, cm, 03/13/23 13:53:00 EDT, Height, 94.8, kg, 03/13/23 13:53:00 EDT, Dosing Weight Start: 03-14-2023 See Instructions , Blood glucose test strips. OneTouch Verio Flex. Test Blood sugar 1x a day and as needed. 1 box of 100. 1 refill. E11.65, # 100 EA, 1 Refill(s), Pharmacy: [facility]/pharmacy #4605, 163, cm, 04/08/24 10:23:00 EST, Height, 89.5, kg, 04/08/24 10:23:00 EST, Dosing Weight Start: 05-26-2024 See Instructions , Lancets. 31G. Test blood glucose level 1 times daily and as needed. 1 box of 100 per 90 days. 3 refills. E11.65, # 1 EA, 3 Refill(s), [facility], cm, 04/08/24 10:23:00 EST, Height, 89.5, kg, 04/08/24 10:23:00 EST, Dosing Weight Start: 05-26-2024 See Instructions , Blood glucose test strips. OneTouch Verio Flex. Test Blood sugar 1x a day and as needed. 1 box of 100. 1 refill. E11.65, # 100 EA, 1 Refill(s), [facility] 163, cm, 04/08/24 10:23:00 EST, Height, 89.5, kg, 04/08/24 10:23:00 EST, Dosing Weight Start: 05-26-2024 See Instructions , Lancets. 31G. Test blood glucose level 1 times daily and as needed. 1 box of 100 per 90 days. 3 refills. E11.65, # 1 EA, 3 Refill(s), [facility], 163, cm, 04/08/24 10:23:00 EST, Height, 89.5, kg, 04/08/24 10:23:00 EST, Dosing Weight Start: 05-26-2024 See Instructions , Blood glucose test strips. OneTouch Verio Flex. Test Blood sugar 1x a day and as needed. 1 box of 100. 1 refill. E11.65, # 100 EA, 1 Refill(s), [facility], 163, cm, 04/08/24 10:23:00 EST, Height, 89.5, kg, 04/08/24 10:23:00 EST, Dosing Weight Start: 05-26-2024 See Instructions , Lancets. 31G. Test blood glucose level 1 times daily and as needed. 1 box of 100 per 90 days. 3 refills. E11.65, # 1 EA, 3 Refill(s), Pharmacy: [facility] #4605, 163, cm, 04/08/24 10:23:00 EST, Height, 89.5, kg, 04/08/24 10:23:00 EST, Dosing Weight Start: 05-26-2024 See Instructions , Blood glucose test strips. OneTouch Verio Flex. Test Blood sugar 1x a day and as needed. 1 box of 100. 1 refill. E11.65, # 100 EA, 1 Refill(s), Pharmacy: [facility] #[facility], 163, cm, 04/08/24 10:23:00 EST, Height, 89.5, kg, 04/08/24 10:23:00 EST, Dosing Weight Start: 05-26-2024 See Instructions , Lancets. 31G. Test blood glucose level 1 times daily and as needed. 1 box of 100 per 90 days. 3 refills. E11.65, # 1 EA, 3 Refill(s), Pharmacy: [facility] #4605, 163, cm, 04/08/24 10:23:00 EST, Height, 89.5, kg, 04/08/24 10:23:00 EST, Dosing Weight Start: 05-26-2024 See Instructions , Blood glucose test strips. OneTouch Verio Flex. Test Blood sugar 1x a day and as needed. 1 box of 100. 1 refill. E11.65, # 100 EA, 1 Refill(s), [facility], 163, cm, 04/08/24 10:23:00 EST, Height, 89.5, kg, 04/08/24 10:23:00 EST, Dosing Weight Start: 05-26-2024 See Instructions , Lancets. 31G. Test blood glucose level 1 times daily and as needed. 1 box of 100 per 90 days. 3 refills. E11.65, # 1 EA, 3 Refill(s), [facility], 163, cm, 04/08/24 10:23:00 EST, Height, 89.5, kg, 04/08/24 10:23:00 EST, Dosing Weight Start: 05-26-2024 See Instructions , Blood glucose test strips. OneTouch Verio Flex. Test Blood sugar 1x a day and as needed. 1 box of 100. 1 refill. E11.65, # 100 EA, 1 Refill(s), Pharmacy: [facility]/pharm[facility] #4[facility], 163, cm, 04/08/24 10:23:00 EST, Height, 89.5, kg, 04/08/24 10:23:00 EST, Dosing Weight Start: 05-26-2024 See Instructions , Lancets. 31G. Test blood glucose level 1 times daily and as needed. 1 box of 100 per 90 days. 3 refills. E11.65, # 1 EA, 3 Refill(s), [facility], 163, cm, 04/08/24 10:23:00 EST, Height, 89.5, kg, 04/08/24 10:23:00 EST, Dosing Weight Start: 05-26-2024 ([id number]) Uncoated knee fe mur prosthesis, metallic ()[id number] [id number] FDA Start: 12-22-2024 ([id number]) Uncoated knee ti glenys prosthesis, metallic ()[id number] [id number] FDA Start: 12-22-2024 Orthopaedic ceme nt, non-antimicrobial ()[id number] [id number] FDA Start: 12-22-2024 ([id number]) Tibial insert ()[id number] [id number] FDA Start: 12-22-2024 See Instructions , Blood glucose test strips. OneTouch Verio Flex. Test Blood sugar 1x a day and as needed. 1 box of 100. 1 refill. E11.65, # 100 EA, 1 Refill(s), [facility], 163, cm, 04/08/24 10:23:00 EST, Height, 89.5, kg, 04/08/24 10:23:00 EST, Dosing Weight Start: 05-26-2024 See Instructions , Lancets. 31G. Test blood glucose level 1 times daily and as needed. 1 box of 100 per 90 days. 3 refills. E11.65, # 1 EA, 3 Refill(s), Pharmacy: [facility] #[facility], 163, cm, 04/08/24 10:23:00 EST, Height, 89.5, kg, 04/08/24 10:23:00 EST, Dosing Weight Start: 05-26-2024 See Instructions , Blood glucose test strips. OneTouch Verio Flex. Test Blood sugar 1x a day and as needed. 1 box of 100. 1 refill. E11.65, # 100 EA, 1 Refill(s), Pharmacy: [facility] #[facility], 163, cm, 04/08/24 10:23:00 EST, Height, 89.5, kg, 04/08/24 10:23:00 EST, Dosing Weight Start: 05-26-2024 See Instructions , Lancets. 31G. Test blood glucose level 1 times daily and as needed. 1 box of 100 per 90 days. 3 refills. E11.65, # 1 EA, 3 Refill(s), Pharmacy: [facility] #[facility], 163, cm, 04/08/24 10:23:00 EST, Height, 89.5, kg, 04/08/24 10:23:00 EST, Dosing Weight Start: 05-26-2024 See Instructions , Blood glucose test strips. OneTouch Verio Flex. Test Blood sugar 1x a day and as needed. 1 box of 100. 1 refill. E11.65, # 100 EA, 1 Refill(s), [facility], 163, cm, 04/08/24 10:23:00 EST, Height, 89.5, kg, 04/08/24 10:23:00 EST, Dosing Weight Start: 05-26-2024 See Instructions , Lancets. 31G. Test blood glucose level 1 times daily and as needed. 1 box of 100 per 90 days. 3 refills. E11.65, # 1 EA, 3 Refill(s), Pharmacy: [facility] #4[facility], 163, cm, 04/08/24 10:23:00 EST, Height, 89.5, kg, 04/08/24 10:23:00 EST, Dosing Weight Start: 05-26-2024 See Instructions , Blood glucose test strips. OneTouch Verio Flex. Test Blood sugar 1x a day and as needed. 1 box of 100. 1 refill. E11.65, # 100 EA, 1 Refill(s), Pharmacy: [facility]/pharmacy #4605, 163, cm, 04/08/24 10:23:00 EST, Height, 89.5, kg, 04/08/24 10:23:00 EST, Dosing Weight Start: 05-26-2024 See Instructions , Lancets. 31G. Test blood glucose level 1 times daily and as needed. 1 box of 100 per 90 days. 3 refills. E11.65, # 1 EA, 3 Refill(s), Pharmacy: [id number], 163, cm, 04/08/24 10:23:00 EST, Height, 89.5, kg, 04/08/24 10:23:00 EST, Dosing Weight Start: 05-26-2024 Goals Date Patient Goal Desired Activity /State Functional Status Date Assessment Result Facility 12-23-2024 Functional status Ambulates;Chair [facility] Work Phone: 06-24-2024 Functional Status Minimum assistance [facility] 06-24-2024 Functional Status Standard Safet y ID band on, Allergy Band on, Call device within reach, Bed in low position, Wheels locked [facility] 12-05-2023 Functional Status Activity Jannytj burgess Independent [facility] 12-05-2023 Functional Status Standard Safet y ID band on, Allergy Band on, Call device within reach, Bed in low position, Wheels locked, personal items within reach, Bedside Cart Locked, Safety level maintained [facility] 12-02-2021 Functional Status Standard Safet y ID band on, Allergy Band on, Call device within reach, Bed in low position, Wheels locked, Upper/Half-Length side-rails up, Phone within reach, personal items within reach, Assistive devices within reach, Visitor at bedside, Safety level maintained, Non-Slip footwear [facility] 11-11-2021 Functional Status OBJECTIVE BP: 109/66 Posture: [...] 22% impairment Activities-specific Balance Confidence Scale: 55% [facility] NEGATED: Highlighted row Functional performance Functional status health issues are not documented Disease [facility] Work Phone: Mental Status Date Assessment Result Facility 12-23-2024 Cognitive function Level Of Cons ciousness Awake;Alert;Appropriate ;Follows Commands [facility] Work Phone: 12-23-2024 Cognitive function Voice/Name [facility] Work Phone: 06-24-2024 Mental Status Orientation [address] 06-24-2024 Mental Status [facility] 12-05-2023 Mental Status Orientation [address] 12-05-2023 Mental Status [facility] 12-02-2021 Mental Status Orientation [address] NEGATED: Highlighted row Cognitive function [Interpretation] Cognitive status health issues are not documented Disease [facility] Work Phone: Clinical Notes 07-08-2021 to 03-16-2025 Note Date & Type Note Facility 03-16-2025 Note Exam Date Time Procedure Performing Provider Status 03/16/25 2:16 PM MRI Spine Lumbar w/o Contrast Dotty MOLINA MD; Auth (Verified) [id number] ORIGINAL EXAMINATION: MRI OF THE LUMBAR SPINE WITHOUT CONTRAST TECHNIQUE: MRI examination of the lumbar spine was obtained utilizing the following sequences: Sagittal and axial T1-weighted, sagittal and axial T2-weighted, and sagittal STIR images COMPARISON: X-ray 11/27/2024 and MRI 08/06/2023 HISTORY: ORDERING SYSTEM PROVIDED HISTORY: Reason for Exam: pars defect new on xray, low back pain FINDINGS: Segmentation: For this report, the last well formed disc is labeled L5-S1. Alignment: There is slight retrolisthesis of L2 on L3, L3 on L4, and L4 on L5. There is grade 1 anterolisthesis of L5 on S1. Vertebral bodies: There are L3-L5 laminectomies. There is a mild chronic compression fracture at T12. There are pars defects at L5. Vertebral body heights are intact. There is disc space narrowing throughout, most prominently at L2-L3. Bone marrow: Normal. Distal cord and conus: Normal. The conus terminates at T12-L1. Cauda equina: Normal. L1-L2 : Posterior disc bulge with mild compression of the anterior thecal sac. No facet joint arthropathy is demonstrated. The central canal and foramina are adequately patent. L2-L3 : Mild compression of the anterior thecal sac secondary to retrolisthesis. Mild facet joint arthropathy is seen. L3-L4 : Laminectomy changes are noted. There is mild facet hypertrophy. There is moderate to severe neural foraminal narrowing on both sides. L4-L5 :Laminectomy changes are noted. Posterior disc osteophyte complex and ymms-po-hyozpsuh facet arthropathy without significant canal stenosis. There is moderate neural foraminal narrowing on both sides. L5-S1 : Moderate posterior disc bulge/pseudo bulge. Moderate facet hypertrophy. Moderate facet joint arthropathy is demonstrated with mild bilateral neural foraminal narrowing. Paraspinal musculature: Normal. Visualized abdomen and pelvis: A simple renal cyst is noted at the right renal midpole. Additional comment: None. IMPRESSION: Multilevel degenerative changes with retrolisthesis at multiple levels, with superimposed lower lumbar laminectomies. No significant stenosis, although there is neural foraminal narrowing at multiple levels. Chronic vertebral body compression deformity at T12 and bilateral L5-S1 pars defects. I have personally reviewed the images of this examination and agree with the resident's findings and interpretation. Interpreted by: Aron Molina MD Preliminary Report By: Elaine Pierre Electronically signed By Aron Molina MD Dictated Date: 03/16/2025 2:22:21 PM Prelim Date: 03/16/2025 4:01:46 PM Sign Date: 03/16/2025 4:01:46 PM Ordering Provider: FOREIGN ELLINGTON RP [facility]11-01-2025 Note. MICRO - Microbiology PROCEDURE: Urine Culture [*1] SOURCE: Urine BODY SITE: COLLECTED DATE/TIME: 03/12/2025 15:50 EDT RECEIVED DATE/TIME: 03/13/2025 15:24 EDT START DATE/TIME: 03/13/2025 15:24 EDT FREE TEXT SOURCE: FINAL REPORTS Final Report [] Verified Date/Time/Personnel: 03/14/2025 14:18 EDT <10,000 cfu/ml. No Significant growth. Sensitivity not indicated. PRELIMINARY REPORTS Preliminary Report [] Verified Date/Time/Personnel: 03/13/2025 15:59 EDT Specimen received in lab. Performing Locations *1: This test was performed at: [address], [facility] , [facility]10-20-2025 Note. MICRO - Microbiology PROCEDURE: Urine Culture [*1] SOURCE: Urine, Clean Catch BODY SITE: COLLECTED DATE/TIME: 02/28/2025 11:04 EDT RECEIVED DATE/TIME: 02/28/2025 14:34 EDT START DATE/TIME: 02/28/2025 14:34 EDT FREE TEXT SOURCE: FINAL REPORTS Final Report [] Verified Date/Time/Personnel: 03/02/2025 08:57 EDT >100,000 cfu/ml Escherichia coli PRELIMINARY REPORTS Preliminary Report [] Verified Date/Time/Personnel: 03/01/2025 10:59 EDT >100,000 cfu/ml Escherichia coli BONNIE to follow Preliminary Report [] Verified Date/Time/Personnel: 02/28/2025 15:59 EDT Specimen received in lab. SUSCEPTIBILITY RESULTS Escherichia coli Antibiotic BONNIE Dilut BONNIE Inter Ampicillin <=8 Susceptible Ampicillin/ <=4/2 Susceptible Sulbactam Aztreonam <=4 Susceptible Cefazolin <=2 Susceptible Cefepime <=2 Susceptible Ceftolozane/ <=2 Susceptible Tazobactam Ciprofloxacin <=0.25 Susceptible Ertapenem <=0.5 Susceptible Gentamicin <=2 Susceptible ID Panel Not Not Applicable Applicable Imipenem <=1 Susceptible Levofloxacin <=0.5 Susceptible Meropenem <=1 Susceptible Minocycline <=4 Susceptible Nitrofurantoin <=32 Susceptible Trimethoprim/ <=0.5/9.5 Susceptible Sulfa Performing Locations *1: This test was performed at: [address], [facility] , [facility]08-26-2025 Note. MICRO - Microbiology PROCEDURE: Blood Culture (bacterial) [*1] SOURCE: Blood BODY SITE: COLLECTED DATE/TIME: 01/01/2025 14:21 EDT RECEIVED DATE/TIME: 01/01/2025 19:32 EDT START DATE/TIME: 01/01/2025 19:32 EDT FREE TEXT SOURCE: FINAL REPORTS Final Report [] Verified Date/Time/Personnel: 01/06/2025 19:59 EDT Blood Culture: No Growth at 5 days. PRELIMINARY REPORTS Preliminary Report [] Verified Date/Time/Personnel: 01/01/2025 20:59 EDT Culture has been received in lab and is no growth to date. Routine cultures are held for 5 days. Performing Locations *1: This test was performed at: [address], [address] [place], [place] [id number] Note. MICRO - Microbiology PROCEDURE: Blood Culture (bacterial) [*1] SOURCE: Blood BODY SITE: COLLECTED DATE/TIME: 01/01/2025 14:21 EDT RECEIVED DATE/TIME: 01/01/2025 19:32 EDT START DATE/TIME: 01/01/2025 19:32 EDT FREE TEXT SOURCE: FINAL REPORTS Final Report [] Verified Date/Time/Personnel: 01/06/2025 19:59 EDT Blood Culture: No Growth at 5 days. PRELIMINARY REPORTS Preliminary Report [] Verified Date/Time/Personnel: 01/01/2025 20:59 EDT Culture has been received in lab and is no growth to date. Routine cultures are held for 5 days. Performing Locations *1: This test was performed at: [address], [address] [place], [place] [id number] Progress note Author Yossi Riley [facility] Note Date/Time December 23, 2024 3: 09pm [facility] Medical Records Department [address] [place] [address] Progress Note - Hospitalist 12/23/24 1506 MR#: [id number] Acct: [id number] Name: RAYMON BAH Rep #:[id number] : 1950 74 From: Yossi jimenez MD PCP: Dr. Foreign Ellington, DO Status:ADM ELIDA Location: MS3 [id number] Subjective Subjective Doing well, pain is controlled. No issues overnight. She does have a reactive leukocytosis Objective Data Objective Data Vital Signs: Vital Signs Temp Pulse Resp BP Pulse Ox O2 Del Method O2 Flow Rate 98.4 F 80 16 117/59 L 93 Room Air 4 12/23/24 14:00 12/23/24 14:00 12/23/24 14:00 12/23/24 14:00 12/23/24 14:00 12/23/24 14:00 12/22/24 13:57 Oxygen Flow Rate (L/min) 4 Oxygen Delivery Method Room Air Weight: 189 lb 9.561 oz Body Mass Index (BMI) 32.5 Intake & Output: Intake and Output for Last 24 Hours 12/22/24 12/23/24 12/24/24 03:59 03:59 03:59 Intake Total 3400 / 3400 Output Total 50 / 50 150 / 150 Balance 3350 / 3350 -150 / -150 Lab / Micro Data 12/23/24 05:30 12/23/24 05:30 Labs: Laboratory Results - last 24 hr 12/22/24 22:00: POC Glucose 358 H 12/23/24 05:30: WBC 12.5 H, RBC 4.39, Hgb 13.6, Hct 39.9, MCV 90.9, MCH 31.0, MCHC 34.1, RDW Std Deviation 43.7, RDW Coeff of Felix 13.1, Plt Count 182, MPV 9.8, Sodium 136, Potassium 4.2, Chloride 103, Carbon Dioxide 19.3 L, Anion Gap 14, BUN 12, Creatinine 0.72, Estim Creat Clear Calc 63.49, Est GFR (MDRD) Non-Af87, BUN/Creatinine Ratio 16.5, Glucose 255 H, Calcium 9.0 12/23/24 06:37: POC Glucose 237 H 12/23/24 11:38: POC Glucose 268 H Micro: Microbiology 11/25/24 10:02 Swab (Method) Nasal Screen MRSA/MSSA - Final Physical Exam Narrative General: Alert, Oriented x3, Cooperative, No apparent distress HEENT: Atraumatic, PERRLA, EOMI, Normocephalic Oral: Moist Mucosa Neck: Supple, No JVD Lungs: Diminished, Normal air movement, No rhonchi, No wheeze, No rales Cardiovascular: Regular rate, Regular Rhythm, Normal S1, Normal S2, No murmurs Abdomen: Soft, Non Tender, Non-Distended, No Hepato-splenomegaly Extremities: No edema, Capillary Refill Less than 3 Seconds Skin: Right knee dressing intact Musculoskeletal: No Tenderness to Palpation of Joints or Extremities Neurological: No focal neurological deficits, Motor Exam 5/5 strength throughout, Sensory exam intact to light touch and pain Psych/Mental Status: Normal Affect, Appropriate Assessment & Plan Assessment/Plan (1) Diabetes: PLAN: Plan 1. Type 2 diabetes mellitus -Accu-Cheks ACHS and sliding scale insulin ? Will monitor make adjustments as necessary 2. History of A-fib - Resume Coumadin at discretion of primary, outpatient monitoring for INR - Patient on diltiazem, holding parameters added given blood pressure little soft, patient asymptomatic 3. Depression/anxiety -Continue home medications 4. History of asthma vs COPD -Continue home inhalers -Incentive spirometer -Follows w/ Dr. Dimas on outpt basis 5. Hypothyroidism -Continue Synthroid ? Stable 6. Right knee osteoarthritis -Status post robotic arm assisted right total knee arthroplasty 12/22/[address] Burnette -Management/pain management per primary ? Medically stable for discharge DVT: Coumadin Will sign off, please call with questions Charges/Coding Visit Charges Office Visits / Consults: 53110 OV L3 Est 20min 12/23/24 1509 <Electronically signed by Yossi Riley MD> Cosigner Signature (if applicable): CC: ~ Signed [facility] Work Phone: 1(270) 165-487108-12-2025 Progress note [facility] Medical Records Department [address] [place] [address] Progress Note - Orthopedic 12/23/24 1146 MR#: [id number] Acct: [id number] Name: RAYMON BAH Rep #:[id number] : 1950 74 From: Lynda SELLERS PCP: Dr. Foreign Ellington, DO Status:ADM ELIDA Location: MS3 EB081-9 Documented by User: MARLO Ambrocio 12/23/24 17:00 Subjective Subjective Patient is s/p robotic assisted right total knee arthroplasty with Dr. Burnette 12/22/2024. Patient resting comfortably in bed. Rates pain 7/ 10 at rest. Withmovement 8/10. States taking Tylenol and oxycodone and ice help to relieve pain. Patient has been up with therapy. Walking with the assit of a walker. Afebrile, no chest pain, shortness of breath, negative calf pain/ erythema, and no other signs of DVT. Patient is apprehensive about returning home and following. Objective Data Objective Data Vital Signs: Vital Signs Temp Pulse Resp BP Pulse Ox O2 Del Method O2 Flow Rate 97.8 F 76 17 128/60 H 93 Room Air 4 12/23/24 07:30 12/23/24 07:30 12/23/24 07:30 12/23/24 07:30 12/23/24 07:30 12/23/24 07:30 12/22/24 13:57 Oxygen Flow Rate (L/min) 4 Oxygen Delivery Method Room Air Weight: 86 kg Body Mass Index (BMI) 32.5 Intake & Output: Intake and Output for Last 24 Hours 12/21/24 12/22/24 12/23/24 23:59 23:59 23:59 Intake Total 2050 / 2350 1350 / 1350 Output Total 50 / 50 150 / 150 Balance 2000 / 2300 1200 / 1200 Lab / Micro Data 12/23/24 05:30 12/23/24 05:30 Labs: Laboratory Results - last 24 hr 12/22/24 22:00: POC Glucose 358 H 12/23/24 05:30: WBC 12.5 H, RBC 4.39, Hgb 13.6, Hct 39.9, MCV 90.9, MCH 31.0, MCHC 34.1, RDW Std Deviation 43.7, RDW Coeff of Felix 13.1, Plt Count 182, MPV 9.8, Sodium 136, Potassium 4.2, Chloride 103, Carbon Dioxide 19.3 L, Anion Gap 14, BUN 12, Creatinine 0.72, Estim Creat Clear Calc 63.49, Est GFR (MDRD) Non- Af87, BUN/Creatinine Ratio 16.5, Glucose 255 H, Calcium 9.0 12/23/24 06:37: POC Glucose 237 H Micro: Microbiology 11/25/24 10:02 Swab (Method) Nasal Screen MRSA/MSSA - Final Physical Exam Narrative Patient resting comfortably in bed No signs of acute distress Satting well on room air Limb is warm to touch, Sensation intact throughout entire lower extremity, including saphenous, sural, superficial and deep peroneal, and tibial distribution. DP/PT pulses bounding. Dorsiflexion plantarflexion strength 5/5 Dressing clean dry intact Calf nontender to palpation, no erythema, no edema. Negative Homans Assessment & Plan Assessment/Plan (1) S/P total knee arthroplasty: PLAN: Postop day 1 status post robotic assisted right total knee arthroplasty seen 12/22/2024. 1. Will continue PT today. Weightbearing as tolerated 2. plan for discharge is pending. Patient is apprehensive about returning home and has no one at home to help her.. Pain control is not optimized at this point in time either. Patient would likely benefit from another day in the hospital. 3. Patient will follow up for post op appointment in 2 weeks as previously scheduled 4. Patient has outpatient PT appointment as previously scheduled in 2 to 3 days 5. WBC 12.5 acute reactive leukocytosis: secondary to pre operative decadron. noacute systemic signs of infection. will monitor, and likely self resolve. 6. H/H 13.7/39.9: No post operavtive anemia 7. DVT prophylaxis : Resume Coumadin as previously scheduled. 8. Pain control: patient instructed to take tylenol 500mg 2 tablets TID. and oxycodone 1-2 tablets every 4-6 hours only as needed for pain control. 9. Patient also given a prescription of Pepcid, senna 10. ok to remove post op dressing. post op day 5 Documented by User: Dr. Yossi Burnette DO 12/23/24 16:26 Objective Data Lab / Micro Data 12/23/24 05:30 12/23/24 05:30 Assessment & Plan Assessment/Plan (1) S/P total knee arthroplasty: PLAN: Postop day 1 status post robotic assisted right total knee arthroplasty seen 12/22/2024. 1. Will continue PT today. Weightbearing as tolerated 2. plan for discharge is pending. Patient is apprehensive about returning home and has no one at home to help her.. Pain control is not optimized at this point in time either. Patient would likely benefit from another day in the hospital. 3. Patient will follow up for post op appointment in 2 weeks as previously scheduled 4. Patient has outpatient PT appointment as previously scheduled in 2 to 3 days 5. WBC 12.5 acute reactive leukocytosis: secondary to pre operative decadron. noacute systemic signs of infection. will monitor, and likely self resolve. 6. H/H 13.7/39.9: No post operavtive anemia 7. DVT prophylaxis : Resume Coumadin as previously scheduled. 8. Pain control: patient instructed to take tylenol 500mg 2 tablets TID. and oxycodone 1-2 tablets every 4-6 hours only as needed for pain control. 9. Patient also given a prescription of Pepcid, senna 10. ok to remove post op dressing. post op day 5 Agree with above. Contacted by RN stating patient is walking without assistance and is requesting home DC. Plan for home dc with outpatient PT as scheduled. 12/23/24 1700 Cosigner Signature (if applicable): 12/23/24 1626 CC: ~ Signed [facility]08-12-2025 Discharge summary [facility] Medical Records Department [address] [place] [address] Instructions for Home/Discharge Instructions 12/23/24 1630 MR#: [id number] Acct: [id number] Name: RAYMON BAH Rep #:[id number] : 1950 74 From: Yossi shelton DO PCP: Dr. Foreign Ellington DO Status:ADM ELIDA Discharge Instructions DC O2, CPAP, BIPAP needs Home O2 Discharge instructions: No Follow Up Care Test Results: Test results from this visit will be discussed in further detail at your follow- up appointment, if applicable. Discharge Plan Admission Admit Date/Time: 12/22/24 12:20 Primary Reason for Your Visit: Right knee replacement Attending Provider: Yossi Burnette Primary Care Provider: Foreign Ellington Consulting Providers: Yossi Riley Instructions Additional Instructions / Restrictions: Follow preprinted instructions from Dr. Burnette's office. Recheck INR lab work needs checked 12/24 Discharge Orders/Prescriptions Prescriptions: New acetaminophen 500 mg Tablet 1,000 mg PO Q8 30 Days Qty: 180 0RF oxycodone 5 mg Tablet 5 - 10 mg PO Q4H PRN PRN (Reason: Pain Score 4-10) 7 Days Qty: 42 0RF Continued warfarin 2 mg tablet 6 mg PO DAILY Patient Comments: TAKE 3 TABS DAILY OR DIRECTED PER COUMADIN CLINIC Rx Instructions: STOP 4 DAYS PRIOR TO OR calcium citrate 500 mg Tablet, Effervescent 500 mg PO DAILY furosemide 20 mg tablet 20 mg PO DAILY escitalopram oxalate 10 mg tablet 10 mg PO DAILY Patient Comments: TAKE 1 TABLET BY MOUTH EVERY DAY rosuvastatin 10 mg tablet 10 mg PO DAILY cholecalciferol (vitamin D3) 50 mcg (2,000 unit) tablet 50 mcg PO DAILY Patient Comments: TAKE 1 TABLET BY MOUTH EVERY DAY fluticasone furoate [Arnuity Ellipta] 100 mcg/actuation blister with device 1 inh inhalation DAILY levothyroxine 75 mcg tablet 75 mcg PO DAILY diltiazem HCl [Matzim LA] 300 mg tablet extended release 24 hr 300 mg PO DAILY Rybelsus 7 mg tablet 7 mg PO DAILY Patient Comments: LAST DOSE PRIOR TO OR IS 12/19/24 docusate sodium 100 mg capsule 100 mg PO DAILY escitalopram oxalate 5 mg tablet 5 mg PO DAILY cyanocobalamin (vitamin B-12) [Vitamin B-12] 1,000 mcg tablet extended release 2,000 mcg PO DAILY Referrals / Follow Up: Foreign Ellington DO [Primary Care Provider] - Yossi Burnette DO [Med Staff - Active Staff] - Disposition Disposition (needs filled in before D/C Order can be placed): Home, Self Care 12/23/24 1631Yossi Burnette DO CC: Dr. Foreign Ellington DO; Dr. Yossi Riley MD ~ Signed [facility]08-12-2025 Progress note [facility] Medical Records Department [address] [place] [address] Progress Note - Hospitalist 12/23/24 1506 MR#: [id number] Acct: [id number] Name: RAYMON BAH Rep #:[id number] : 1950 74 From: Yossi jimenez MD PCP: Dr. Foreign Ellington, DO Status:ADM ELIDA Location: [place] [address] Subjective Subjective Doing well, pain is controlled. No issues overnight. She does have a reactive leukocytosis Objective Data Objective Data Vital Signs: Vital Signs Temp Pulse Resp BP Pulse Ox O2 Del Method O2 Flow Rate 98.4 F 80 16 117/59 L 93 Room Air 4 12/23/24 14:00 12/23/24 14:00 12/23/24 14:00 12/23/24 14:00 12/23/24 14:00 12/23/24 14:00 12/22/24 13:57 Oxygen Flow Rate (L/min) 4 Oxygen Delivery Method Room Air Weight: 189 lb 9.561 oz Body Mass Index (BMI) 32.5 Intake & Output: Intake and Output for Last 24 Hours 12/22/24 12/23/24 12/24/24 03:59 03:59 03:59 Intake Total 3400 / 3400 Output Total 50 / 50 150 / 150 Balance 3350 / 3350 -150 / -150 Lab / Micro Data 12/23/24 05:30 12/23/24 05:30 Labs: Laboratory Results - last 24 hr 12/22/24 22:00: POC Glucose 358 H 12/23/24 05:30: WBC 12.5 H, RBC 4.39, Hgb 13.6, Hct 39.9, MCV 90.9, MCH 31.0, MCHC 34.1, RDW Std Deviation 43.7, RDW Coeff of Felix 13.1, Plt Count 182, MPV 9.8, Sodium 136, Potassium 4.2, Chloride 103, Carbon Dioxide 19.3 L, Anion Gap 14, BUN 12, Creatinine 0.72, Estim Creat Clear Calc 63.49, Est GFR (MDRD) Non- Af87, BUN/Creatinine Ratio 16.5, Glucose 255 H, Calcium 9.0 12/23/24 06:37: POC Glucose 237 H 12/23/24 11:38: POC Glucose 268 H Micro: Microbiology 11/25/24 10:02 Swab (Method) Nasal Screen MRSA/MSSA - Final Physical Exam Narrative General: Alert, Oriented x3, Cooperative, No apparent distress HEENT: Atraumatic, PERRLA, EOMI, Normocephalic Oral: Moist Mucosa Neck: Supple, No JVD Lungs: Diminished, Normal air movement, No rhonchi, No wheeze, No rales Cardiovascular: Regular rate, Regular Rhythm, Normal S1, Normal S2, No murmurs Abdomen: Soft, Non Tender, Non-Distended, No Hepato-splenomegaly Extremities: No edema, Capillary Refill Less than 3 Seconds Skin: Right knee dressing intact Musculoskeletal: No Tenderness to Palpation of Joints or Extremities Neurological: No focal neurological deficits, Motor Exam 5/5 strength throughout, Sensory exam intact to light touch and pain Psych/Mental Status: Normal Affect, Appropriate Assessment & Plan Assessment/Plan (1) Diabetes: PLAN: Plan 1. Type 2 diabetes mellitus -Accu-Cheks ACHS and sliding scale insulin ? Will monitor make adjustments as necessary 2. History of A-fib - Resume Coumadin at discretion of primary, outpatient monitoring for INR - Patient on diltiazem, holding parameters added given blood pressure little soft, patient asymptomatic 3. Depression/anxiety -Continue home medications 4. History of asthma vs COPD -Continue home inhalers -Incentive spirometer -Follows w/ Dr. Dimas on outpt basis 5. Hypothyroidism -Continue Synthroid ? Stable 6. Right knee osteoarthritis -Status post robotic arm assisted right total knee arthroplasty 12/22/[address] Burnette -Management/pain management per primary ? Medically stable for discharge DVT: Coumadin Will sign off, please call with questions Charges/Coding Visit Charges Office Visits / Consults: 26761 OV L3 Est 20min 12/23/24 1509 Cosigner Signature (if applicable): CC: ~ Signed [facility]08-12-2025 Progress note Author Lynda Camarillo [facility] Note Date/Time December 23, 2024 5: 00pm [facility] Medical Records Department [address] [place] [address] Progress Note - Orthopedic 12/23/24 1146 MR#: [id number] Acct: [id number] Name: RAYMON BAH Rep #:[id number] : 1950 74 From: Lynda SELLERS PCP: Dr. Foreign Ellintgon, DO Status:ADM ELIDA Location: MS3 [id number] Documented by User: MARLO Ambrocio 12/23/24 17:00 Subjective Subjective Patient is s/p robotic assisted right total knee arthroplasty with Dr. Burnette 12/22/2024. Patient resting comfortably in bed. Rates pain 7/ 10 at rest. Withmovement 8/10. States taking Tylenol and oxycodone and ice help to relieve pain. Patient has been up with therapy. Walking with the assit of a walker. Afebrile, no chest pain, shortness of breath, negative calf pain/ erythema, and no other signs of DVT. Patient is apprehensive about returning home and following. Objective Data Objective Data Vital Signs: Vital Signs Temp Pulse Resp BP Pulse Ox O2 Del Method O2 Flow Rate 97.8 F 76 17 128/60 H 93 Room Air 4 12/23/24 07:30 12/23/24 07:30 12/23/24 07:30 12/23/24 07:30 12/23/24 07:30 12/23/24 07:30 12/22/24 13:57 Oxygen Flow Rate (L/min) 4 Oxygen Delivery Method Room Air Weight: 86 kg Body Mass Index (BMI) 32.5 Intake & Output: Intake and Output for Last 24 Hours 12/21/24 12/22/24 12/23/24 23:59 23:59 23:59 Intake Total 2050 / 2350 1350 / 1350 Output Total 50 / 50 150 / 150 Balance 2000 / 2300 1200 / 1200 Lab / Micro Data 12/23/24 05:30 12/23/24 05:30 Labs: Laboratory Results - last 24 hr 12/22/24 22:00: POC Glucose 358 H 12/23/24 05:30: WBC 12.5 H, RBC 4.39, Hgb 13.6, Hct 39.9, MCV 90.9, MCH 31.0, MCHC 34.1, RDW Std Deviation 43.7, RDW Coeff of Felix 13.1, Plt Count 182, MPV 9.8, Sodium 136, Potassium 4.2, Chloride 103, Carbon Dioxide 19.3 L, Anion Gap 14, BUN 12, Creatinine 0.72, Estim Creat Clear Calc 63.49, Est GFR (MDRD) Non-Af87, BUN/Creatinine Ratio 16.5, Glucose 255 H, Calcium 9.0 12/23/24 06:37: POC Glucose 237 H Micro: Microbiology 11/25/24 10:02 Swab (Method) Nasal Screen MRSA/MSSA - Final Physical Exam Narrative Patient resting comfortably in bed No signs of acute distress Satting well on room air Limb is warm to touch, Sensation intact throughout entire lower extremity, including saphenous, sural, superficial and deep peroneal, and tibial distribution. DP/PT pulses bounding. Dorsiflexion plantarflexion strength 5/5 Dressing clean dry intact Calf nontender to palpation, no erythema, no edema. Negative Homans Assessment & Plan Assessment/Plan (1) S/P total knee arthroplasty: PLAN: Postop day 1 status post robotic assisted right total knee arthroplasty seen 12/22/2024. 1. Will continue PT today. Weightbearing as tolerated 2. plan for discharge is pending. Patient is apprehensive about returning home and has no one at home to help her.. Pain control is not optimized at this point in time either. Patient would likely benefit from another day in the hospital. 3. Patient will follow up for post op appointment in 2 weeks as previously scheduled 4. Patient has outpatient PT appointment as previously scheduled in 2 to 3 days 5. WBC 12.5 acute reactive leukocytosis: secondary to pre operative decadron. noacute systemic signs of infection. will monitor, and likely self resolve. 6. H/H 13.7/39.9: No post operavtive anemia 7. DVT prophylaxis : Resume Coumadin as previously scheduled. 8. Pain control: patient instructed to take tylenol 500mg 2 tablets TID. and oxycodone 1-2 tablets every 4-6 hours only as needed for pain control. 9. Patient also given a prescription of Pepcid, senna 10. ok to remove post op dressing. post op day 5 Documented by User: Dr. Yossi Burnette DO 12/23/24 16:26 Objective Data Lab / Micro Data 12/23/24 05:30 12/23/24 05:30 Assessment & Plan Assessment/Plan (1) S/P total knee arthroplasty: PLAN: Postop day 1 status post robotic assisted right total knee arthroplasty seen 12/22/2024. 1. Will continue PT today. Weightbearing as tolerated 2. plan for discharge is pending. Patient is apprehensive about returning home and has no one at home to help her.. Pain control is not optimized at this point in time either. Patient would likely benefit from another day in the hospital. 3. Patient will follow up for post op appointment in 2 weeks as previously scheduled 4. Patient has outpatient PT appointment as previously scheduled in 2 to 3 days 5. WBC 12.5 acute reactive leukocytosis: secondary to pre operative decadron. noacute systemic signs of infection. will monitor, and likely self resolve. 6. H/H 13.7/39.9: No post operavtive anemia 7. DVT prophylaxis : Resume Coumadin as previously scheduled. 8. Pain control: patient instructed to take tylenol 500mg 2 tablets TID. and oxycodone 1-2 tablets every 4-6 hours only as needed for pain control. 9. Patient also given a prescription of Pepcid, senna 10. ok to remove post op dressing. post op day 5 Agree with above. Contacted by RN stating patient is walking without assistance and is requesting home DC. Plan for home dc with outpatient PT as scheduled. 12/23/24 1700 <Electronically signed by Lynda SELLERS> Cosigner Signature (if applicable): 12/23/24 1626 <Electronically signed by Yossi Burnette DO> CC: ~ Signed [facility] Work Phone: 1(883) 442-941808-11-2025 Consult note Author Brooke Reed [facility] Note Date/Time December 22, 2024 8: 28pm [facility] Medical Records Department [address] [place] [address] Consultation - Hospitalist 12/22/242023 MR#: [id number] Acct: [id number] Name: RAYMON BAH Rep #:[id number] : 1950 74 From: Brooke Reed MD PCP: Dr. Foreign Ellington, DO Status:ADM ELIDA Location: [place] [id number] Assessment & Plan Assessment/Plan (1) Diabetes: PLAN: Plan #Type 2 diabetes mellitus -Glucose checks and sliding scale insulin #DEUCE - Patient reports she did not bring her CPAP and will be fine if she goes night without it # History of A-fib - Resume Coumadin at discretion of primary - Patient on diltiazem, holding parameters added given blood pressure little soft, patient asymptomatic #Depression/anxiety -Continue home medications #Hx ?asthma vs COPD -Continue home inhalers -Incentive spirometer -Follows w/ Dr. Dimas on outpt basis #Hypothyroidism -Continue Synthroid #Hx kidney stones -Noted # Right knee osteoarthritis -Status post robotic arm assisted right total knee arthroplasty 12/22/[address] Burnette -Management/pain management per primary #DVT ppx: Timing and agent at discretion of primary Brooke Reed MD Time spent in the patient's overall evaluation, decision-making process, review of diagnostic data, adjustment of management, discussion with other providers, nursing and ancillary staff involved in patient's care documentation, 21 Minutes HPI Consult Data Date of Consult: 12/22/24 HPI Narrative Reason for Consultation: Postop medical management HPI Narrative: RAYMON BAH, is [id number] female history of DEUCE, A-fib, kidney stones, diabetes, hypertension, depression, COPD, hypothyroidism presented [facility] 12/22/2024 for a robotic arm assisted right total knee arthroplasty with Dr. Burnette. Hospitalist consulted for postoperative medical management. Patient evaluated at bedside. Patient reports feeling little bit of pulling in her right knee like she did prior to surgery and is worried that it will start hurting, outside of her knee she has no other new acute complaints, urinated well before she came up to the floor REPLACED BY [facility] Medical History (Updated 12/22/24 @ 20:[address] Brooke Reed MD) Arthritis Cardiology follow-up encounter CPAP (continuous positive airway pressure) dependence Diabetes High cholesterol History of atrial fibrillation History of echocardiogram History of IBS History of steroid therapy Hypertension Kidney stones Left ureteral stone PONV (postoperative nausea and vomiting) Post-menopausal Sleep apnea Thyroid disease Wears glasses Wears hearing aid Home Medications ?Medication ?Instructions ?Recorded ?Last Taken ?Type calcium citrate 500 mg (2,376 mg) 500 mg PO DAILY 12/1212/19/24 History effervescent tablet cholecalciferol (vitamin D3) 50 50 mcg PO DAILY 12/19/24 History mcg (2,000 unit) tablet escitalopram oxalate 10 mg tablet 10 mg PO DAILY 12/2112/21/24 History furosemide 20 mg tablet 20 mg PO DAILY 12/21/2112/12 History rosuvastatin 10 mg tablet 10 mg PO DAILY 12/21/2112/12 History warfarin 2 mg tablet 6 mg PO DAILY 12/21/2112/17 History cyanocobalamin (vitamin B-12) 2,000 mcg PO DAILY 11/2412/19/24 History 1,000 mcg tablet,extended release (Vitamin B-12 ER) diltiazem HCl 300 mg 300 mg PO DAILY 11/24/2404/07 06:00 History tablet,extended release 24 hr (Matzim LA) docusate sodium 100 mg capsule 100 mg PO DAILY 5 Unknown History escitalopram oxalate 5 mg tablet 5 mg PO DAILY 5 Unknown History fluticasone furoate 100 1 inh inhalation DAILY 11/2412/22/24 06:00 History mcg/actuation blister powder for inhalation (Arnuity Ellipta) levothyroxine 75 mcg tablet 75 mcg PO DAILY 11/24/24 0 12/22/24 06:00 History semaglutide 7 mg tablet (Rybelsus) 7 mg PO DAILY 11/2412/18/24 History Allergy/AdvReac Type Severity Reaction Status Date / Time cortisone Allergy Severe Other Verified 12/22/24 09:36 Nitrate Analogues Allergy Severe Other Verified 12/22/24 09:36 erythromycin base Allergy Upset Verified 12/22/24 09:36 Stomach Penicillins (PCN) Allergy Swelling Verified 12/22/24 09:36 Surgical History History of back surgery History of cardiac catheterization History of heart surgery History of hip replacement History of partial hysterectomy Hx of cystoscopy Hx of parathyroidectomy Hx of total hip arthroplasty Social History Smoking Status: Never smoker ROS ROS Narrative General: Denies fever/chills HENT: Denies headache, denies stuffy nose, denies sore throat EYES: Denies changes in vision Resp: Denies cough, denies shortness of breath Cardiac: Denies chest pain GI: Denies abdominal pain, had diarrhea couple days ago but none presently, denies nausea/vomiting : Denies changes in urination Extremity: Denies swelling, some knee pain as described above MSK: Denies weakness Neuro: Denies any numbness/tingling Heme: Denies any bleeding or bruising Skin: Denies rashes Psychiatric: No complaints voiced Physical Exam Narrative General: Alert, oriented, no apparent distress HEENT: Atraumatic, normocephalic Eyes: Anicteric, normal conjunctiva, extraocular movements grossly intact Neck: Supple Respiratory: Clear to auscultation bilaterally, normal respiratory effort Cardiovascular: Regular rate and rhythm GI: Soft, nontender, nondistended Extremities: Right knee wrapped, patient postoperative Musculoskeletal: Moving all other extremities Neuro: No overt focal neurological deficits Skin: No rashes appreciated Psych: Cooperative Lab / Micro Data 11/25/24 10:02 11/25/24 10:02 Labs: Laboratory Results - last 24 hr 12/22/24 08:09: POC PT 14.4, INR 1.2 12/22/24 08:47: POC Glucose 147 H Charges/Coding Visit Charges Office Visits / Consults: 52585 OV L3 Est 20min 12/22/242027 <Electronically signed by Brooke Reed MD> Cosigner Signature (if applicable): CC: Dr. Foreign Ellington DO; Dr. Yossi Burnette DO~ Signed [facility] Work Phone: [phone]) 501-425908-11-2025 Consult note [facility] Medical Records Department [address] [place] [address] Consultation - Hospitalist 12/22/242023 MR#: [id number] Acct: [id number] Name: RAYMON BAH Rep #:[id number] : 1950 74 From: Brooke Reed MD PCP: Dr. Foreign Romar, DO Status:ADM ELIDA Location: MS3 KN001-8 Assessment & Plan Assessment/Plan (1) Diabetes: PLAN: Plan #Type 2 diabetes mellitus -Glucose checks and sliding scale insulin #DEUCE - Patient reports she did not bring her CPAP and will be fine if she goes night without it # History of A-fib - Resume Coumadin at discretion of primary - Patient on diltiazem, holding parameters added given blood pressure little soft, patient asymptomatic #Depression/anxiety -Continue home medications #Hx ?asthma vs COPD -Continue home inhalers -Incentive spirometer -Follows w/ Dr. Dimas on outpt basis #Hypothyroidism -Continue Synthroid #Hx kidney stones -Noted # Right knee osteoarthritis -Status post robotic arm assisted right total knee arthroplasty 12/22/[address] Burnette -Management/pain management per primary #DVT ppx: Timing and agent at discretion of primary Brooke Reed MD Time spent in the patient's overall evaluation, decision-making process, review of diagnostic data,adjustment of management, discussion with other providers, nursing and ancillary staff involved in patient's care documentation, 21 Minutes HPI Consult Data Date of Consult: 12/22/24 HPI Narrative Reason for Consultation: Postop medical management HPI Narrative: RAYMON BAH, is [id number] female history of DEUCE, A-fib, kidney stones, diabetes, hypertension, depression, COPD, hypothyroidism presented [facility] 12/22/2024 for a robotic arm assisted right total knee arthroplasty with Dr. Burnette. Hospitalist consulted for postoperative medical management. Patient evaluated at bedside. Patient reports feeling little bit of pulling in her right knee like she did prior to surgery and is worried that it will start hurting, outside of her kneeshe has no other new acute complaints, urinated well before she came up to the floor REPLACED BY [facility] Medical History (Updated 12/22/24 @ 20:[address] Brooke Reed MD) Arthritis Cardiology follow-up encounter CPAP (continuous positive airway pressure) dependence Diabetes High cholesterol History of atrial fibrillation History of echocardiogram History of IBS History of steroid therapy Hypertension Kidney stones Left ureteral stone PONV (postoperative nausea and vomiting) Post-menopausal Sleep apnea Thyroid disease Wears glasses Wears hearing aid Home Medications ?Medication ?Instructions ?Recorded ?Last Taken ?Type calcium citrate 500 mg (2,376 mg) 500 mg PO DAILY 12/1212/19/24 History effervescent tablet cholecalciferol (vitamin D3) 50 50 mcg PO DAILY 12/19/24 History mcg (2,000 unit) tablet escitalopram oxalate 10 mg tablet 10 mg PO DAILY 12/2112/21/24 History furosemide 20 mg tablet 20 mg PO DAILY 12/21/2112/12 History rosuvastatin 10 mg tablet 10 mg PO DAILY 12/21/2112/12 History warfarin 2 mg tablet 6 mg PO DAILY 12/21/2112/17 History cyanocobalamin (vitamin B-12) 2,000 mcg PO DAILY 11/2412/19/24 History 1,000 mcg tablet,extended release (Vitamin B-12 ER) diltiazem HCl 300 mg 300 mg PO DAILY 11/24/2404/07 06:00 History tablet,extended release 24 hr (Matzim [place]) docusate sodium 100 mg capsule 100 mg PO DAILY 5 Unknown History escitalopram oxalate 5 mg tablet 5 mg PO DAILY 5 Unknown History fluticasone furoate 100 1 inh inhalation DAILY 11/2412/22/24 06:00 History mcg/actuation blister powder for inhalation (Arnuity Ellipta) levothyroxine 75 mcg tablet 75 mcg PO DAILY 11/24/24 0 12/22/24 06:00 History semaglutide 7 mg tablet (Rybelsus) 7 mg PO DAILY 11/2412/18/24 History Allergy/AdvReac Type Severity Reaction Status Date / Time cortisone Allergy Severe Other Verified 12/22/24 09:36 Nitrate Analogues Allergy Severe Other Verified 12/22/24 09:36 erythromycin base Allergy Upset Verified 12/22/24 09:36 Stomach Penicillins (PCN) Allergy Swelling Verified 12/22/24 09:36 Surgical History History of back surgery History of cardiac catheterization History of heart surgery History of hip replacement History of partial hysterectomy Hx of cystoscopy Hx of parathyroidectomy Hx of total hip arthroplasty Social History Smoking Status: Never smoker ROS ROS Narrative General: Denies fever/chills HENT: Denies headache, denies stuffy nose, denies sore throat EYES: Denies changes in vision Resp: Denies cough, denies shortness of breath Cardiac: Denies chest pain GI: Denies abdominal pain, had diarrhea couple days ago but none presently, denies nausea/vomiting : Denies changes in urination Extremity: Denies swelling, some knee pain as described above MSK: Denies weakness Neuro: Denies any numbness/tingling Heme: Denies any bleeding or bruising Skin: Denies rashes Psychiatric: No complaints voiced Physical Exam Narrative General: Alert, oriented, no apparent distress HEENT: Atraumatic, normocephalic Eyes: Anicteric, normal conjunctiva, extraocular movements grossly intact Neck: Supple Respiratory: Clear to auscultation bilaterally, normal respiratory effort Cardiovascular: Regular rate and rhythm GI: Soft, nontender, nondistended Extremities: Right knee wrapped, patient postoperative Musculoskeletal: Moving all other extremities Neuro: No overt focal neurological deficits Skin: No rashes appreciated Psych: Cooperative Lab / Micro Data 11/25/24 10:02 11/25/24 10:02 Labs: Laboratory Results - last 24 hr 12/22/24 08:09: POC PT 14.4, INR 1.2 12/22/24 08:47: POC Glucose 147 H Charges/Coding Visit Charges Office Visits / Consults: 37780 OV L3 Est 20min 12/22/242027 Cosigner Signature (if applicable): CC: Dr. Foreign Ellington DO; Dr. Yossi Burnette DO~ Signed [facility]08-11-2025 Consult note Author Pat Alarcon [facility] Note Date/Time December 22, 2024 2: 22pm [facility] Medical Records Department [address] [place] [address] Anesthesia Postop Eval II 12/22/24 1422 MR#: [id number] Acct: [id number] Name: RAYMON BHA Rep #:[id number] : 1950 74 From: Pat grant CRNA PCP: Dr. Foreign Ellington DO Status:REG SDC Y Race: C Location: AC02-1 Anesthesia Postop Eval I Sum Postop Eval Completion status Anesthesia document: Postop Eval 1 completed: Yes Anesthesia Postop Eval I Summary Anesthesia Postop Eval I Summary: Anesthesia Postop Eval I: Assessment Summary Airway patent Yes 12/22/24 12:33 [email or web address] Spontaneous unlabored Yes 12/22/24 12:33 SOLVENT [email or web address] [email or web address] respirations Mental status nausea No 12/22/24 12:33 SOLVENT [email or web address] [email or web address] Vomiting No 12/22/24 12:33 SOLVENT [email or web address] [email or web address] Anesthesia Postop Eval I: Fluid Summary Crystalloid volume administer 1,100 12/22/24 12:33 SOLVENT PLANT [email or web address].TNES (ml) Colloids volume administered ( ml) Blood Product volume administered (ml) Total IV fluid infused 1,100 12/22/24 12:33 SOLVENT PLANT [email or web address] Anesthesia Postop Eval I: Summary Notes Anesthesia Complication No 12/22/24 12:33 SOLVENT [email or web address] [email or web address] Anesthesia Complication Comment: Post-operative progress note Anesthesia: Postop Eval II Evaluation Mental status: Awake and Calm Pain Level: 2 nausea: No Vomiting: No Complications Anesthesia Complication: No 12/22/24 1422 <Electronically signed by Pat gomez CRNA> Date _ Pat Alarcon CRNA Cosigner Signature: Date CC: ~ Signed [facility] Work Phone: 1(678) 803-700608-11-2025 Consult note Author Zacarias Skelton [facility] Note Date/Time December 22, 2024 12 :34pm [facility] Medical Records Department [address] [facility] [place] [address] Anesthesia Postop Eval I 12/22/24 1233 MR#: [id number] Acct: [id number] Name: RAYMON BAH Rep #:[id number] : 1950 74 From: Zacarias ANTHONY PCP: Dr. Foreign Ellington, DO Status:REG SDC Y Race: C Location: [place] [address] Anesthesia: Postop Eval I Current Vital Signs Temperature: 97.8 F Pulse Rate: 85 Blood Pressure: 101/60 Respiratory Rate: 16 Pulse Ox: 92 Assessment Airway patent: Yes Spontaneous unlabored respirations: Yes nausea: No Vomiting: No Anesthesia Complication: No Fluid Hydration Crystalloid volume administer (ml): 1,100 Total IV fluid infused: 1,100 Progress Note Anesthesia document: Postop Eval 1 completed: Yes 12/22/24 1234 <Electronically signed by Zacarias Skelton CRNA> Date _ Zacarias Skelton CRNA Cosigner Signature: Date CC: ~ Signed [facility] Work Phone: [phone]) 626-245208-11-2025 Consult note [facility] Medical Records Department [address] [place] [address] Anesthesia Postop Eval II 12/22/24 1422 MR#: [id number] Acct: [id number] Name: RAYMON BAH Rep #:[id number] : 1950 74 From: Pat grant [employer] PLANT T[employer]ATER PCP: Dr. Foreign Ellington, DO Status:REG SDC Y Race: C Location: [place] [address] Anesthesia Postop Eval I Sum Postop Eval Completion status Anesthesia document: Postop Eval 1 completed: Yes Anesthesia Postop Eval I Summary Anesthesia Postop Eval I Summary: Anesthesia Postop Eval I: Assessment Summary Airway patent Yes 12/22/24 12:33 SOLVENT [email or web address] [email or web address] Spontaneous unlabored Yes 12/22/24 12:33 SOLVENT PLANT [email or web address] respirations Mental status nausea No 12/22/24 12:33 SOLVENT PLANT [email or web address] Vomiting No 12/22/24 12:33 SOLVENT PLANT [email or web address] Anesthesia Postop Eval I: Fluid Summary Crystalloid volume administer 1,100 12/22/24 12:33 SOLVENT PLANT [email or web address].TNES (ml) Colloids volume administered ( ml) Blood Product volume administered (ml) Total IV fluid infused 1,100 12/22/24 12:33 SOLVENT PLANT [email or web address] Anesthesia Postop Eval I: Summary Notes Anesthesia Complication No 12/22/24 12:33 SOLVENT PLANT [email or web address] Anesthesia Complication Comment: Post-operative progress note Anesthesia: Postop Eval II Evaluation Mental status: Awake and Calm Pain Level: 2 nausea: No Vomiting: No Complications Anesthesia Complication: No 12/22/24 1422 jameski [employer] PLANT TREATER> Date _ Pat Alarcon [employer] T[employer]ATER Cosigner Signature: Date CC: ~ Signed [facility]08-11-2025 Evaluation note* Diagnosis Onset Date Resolution Status Admit Date Diabetes acute December 22, 025 12:20pm S/P total knee arthroplasty acute December 22, 2024 12:20pm [facility] Work Phone: 1(217) 390-736908-11-2025 Procedure note [facility] Medical Records Department [address] [place] [address] Operative Report 12/22/24 1306 MR#: [id number] Acct: [id number] Name: RAYMON BAH Rep #:[id number] : 1950 74 From: Yossi shelton DO PCP: Dr. 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: Yes [place]set Folder: Lynda Camarillo Tasks completed by printer's assistant: Opening & closing, Implanting device, Hemostasis: Electrocautery and Retracting Type of Anesthesia: Spinal/Supplemental RN Documented Start/Stop Times: Operation Date: 12/22/24 10:30 Case Time Into Pre-Op 12/22/24 08:09 Anesthesia Start 12/22/24 10:30 Into Room 12/22/24 10:30 Procedure Start 12/22/24 10:50 Procedure End 12/22/24 12:06 Anesthesia End 12/22/24 12:14 Out of Room 12/22/24 12:14 Into Recovery 12/22/24 12:15 Procedure Start Time: 10:50 Procedure Stop Time: 12:06 Select all DRAINS/GRAFTS/IMPLANTS that apply: Implanted device Implanted device details: Eloisa triathlon cemented CR femur size #2, size 3 tibial baseplate with 9 mm CS polyethylene insert Estimated Blood Loss: 50 cc Specimen collected: No Description of surgery: Patient was identified in the preoperative holding area by name, medical record number, and date ofbirth. Informed set was confirmed with the patient. The operative knee was marked with a surgical marker. At time of her procedure, patient brought to the operative suite and positioned supine a standard operating table. Anesthesia then administered a spinal anesthetic. He was thenrepositioned in the supine position with all bony prominences well-padded. We then placed a well-padded pneumatic tourniquet on the right upper thigh. The right upper extremity was brought across patient's chest throughout the procedure. We then prepped and draped the right lower extremity in a normal, sterile orthopedic fashion. We performed a timeout with all parties in attendance in agreement with the side, site, operation be performed. No concerns were voiced and would like to proceed with surgery. 2 g Ancefwas administered prior to the incision by anesthesia staff as well as 1 g IV TXA. First exsanguinated the right lower extremity with a Esmarch bandage. Tourniquet was inflated to 250 mmHg for approximately 45 minutes. Esmarch was removed. I planned a standard midline approach to the right knee approximately 15 cm in length. Skin was sharply incised with a 10 blade scalpel developing full- thickness layers down to the retinaculum. Layers were developed identifying the VMO. I then planned a standard medial parapatellar arthrotomy performed in flexion. The anterior horn of the medial meniscus was released. Hoffa's fat pad was then released. I then everted the patella in extension and brought the knee into 90 degrees of flexion. The anterior horn of the lateral meniscus was then released. The ACL was split in its mid substance with a 10 blade. We then brought the knee back into extension. Patella was left paskenta due to moderate degenerative changes. I then placed pins in the metaphyseal distal femur medial to lateral for the Denzel arrays. In similar fashion, I made a 2 cm incision approximately a handsbreadth distal to the tibial tubercle along the medial aspect of the tibia,drilling 2 bicortical pins for the tibial array. The knee was brought into flexion. The patella was subluxed laterally but not everted. Medial lateral retractors were placed. We then utilized the [employer] software to confirm our planned surgical procedure and oriented with the patient's osseous anatomy. Allchecks with the [employer] system were confirmed. Patient had a significant fixed varus deformity after performing stress examination utilizing the [employer] software. We elected to place the tibial baseplate in 1 degree of varus to allow for appropriatebalancing. Sawblade wasthen brought in. I first started with the tibial cut, ensuring protection of the MCL and patellar tendon. A tibial wafer was then excised. I then proceededto make the posteriorfemoral, anterior, anterior chamfer cuts with the same blade. Ligaments were protected with [employer] retractors. Sawblade was thenexchanged to perform the distal femoral and posterior chamfer cuts. The robot was then removed from the surgical field. Remaining loose bone and meniscus wasexcised ca refully. Posterior osteophytes were removed from the distal femur with a curved osteotome and rongeur. Trial components were then placed. Balance was excellent in both extension and 90 degrees flexion. No mid flexion instability was apparent. Tracking was excellent. We then marked for tibial baseplate. Distal femoral pegs were drilled. Tibial keel was punched. Trials were removed. Periarticular block was administered. The wound was copiously irrigated with normal saline solution. Simplex cement was then mixed on the back table. Components were then cemented inplace with excess cement being removed. Cement was allowed to cure with the components in full extension utilizing a 9 mm trial polyethylene component. While the cement was curing, Betadine solution was irrigated into the wound and the wound edges. After cement had cured fully, trial polyethylene was removed. Tourniquet was deflated. Hemostasis was excellent. An additional 1 g TXA was administered IV. I selected a size 9 mm polyethylene which was placed and impacted per arc and gas welder recommendations. Final components appeared very well balanced withexcellent range of motion. There was no significant remaining flexion contracture. The wound was copiously irrigated with normal saline solution. Capsule was closed watertight with #1 strata fix barbed suture. Deeper bursal layer was reapproximated with 0 Vicryl suture. Dermis was reapproximated buried interrupted 2-0 Vicryl suture. Skin was finally reapproximated bia. Patient tolerated the procedure well without apparent complication. She was safely awakened in the operative suite, transferred to her hospital bed and subsequently to PACU in stable condition. Need for skilled instructional support assistant: Lynda Camarillo PA-C was critical to the outcome of thecase. During the course of the procedure the physician instructional support assistant played a vitalrole. Her intimate knowledge of my stepsin the procedure aided in safe and expedient completion of the procedure. The PA played a vital role in positioning particularly in obtaining the appropriate positioning. The PA was also vital in theretraction of soft tissues during the exposure and projecting vital structures. The PA was also vital and protecting soft tissues during times of bony cuts. She also played a vital role in closure with my direct supervision. The PA was also important during reduction and dislocation of the joint and trials intraoperatively. Post Operative Plan: Patient will be placed in observation overnight. Patient does live at home alone with no family in the area. She will likely need placement for convalescence. Weightbearing: Range of motion and weightbearing as tolerated right lower extremity. Antibiotics: Ancef 2 g every 8 hours x 3 doses DVT Prophylaxis: Restart home Coumadin postoperative day #1, SCDs, early mobilization, EDE hose Mcmahon: None Dressing: Maintain silver dressing x5 days X-Rays: 2-week x-rays in the office. Follow-up: 2 weeks in my office for staple removal Surgical Findings: Flexible varus deformity. Stable right knee following final fixation. Good patellar tracking. Complications Complications: No Admit VTE Documentation VTE Present on Admission: No VTE Mechan Device Prophylaxis: SCD's and Thigh High EDE Hose VTE Pharm Prophylaxis ordered?: Yes 12/22/24 1310 Cosigner Signature (if applicable): CC: Dr. Foreign Ellington DO; Dr. Yossi Burnette DO~ Signed [facility]08-11-2025 Consult note [facility] Medical Records Department [address] [place] [address] Anesthesia Postop Eval I 12/22/24 1233 MR#: [id number] Acct: [id number] Name: RAYMON BAH TARAH Rep #:[id number] : 1950 74 From: Zacarias ANTHONY PCP: Dr. Foreign Ellington, DO Status:REG SDC Y Race: C Location: [place] [address] Anesthesia: Postop Eval I Current Vital Signs Temperature: 97.8 F Pulse Rate: 85 Blood Pressure: 101/60 Respiratory Rate: 16 Pulse Ox: 92 Assessment Airway patent: Yes Spontaneous unlabored respirations: Yes nausea: No Vomiting: No Anesthesia Complication: No Fluid Hydration Crystalloid volume administer (ml): 1,100 Total IV fluid infused: 1,100 Progress Note Anesthesia document: Postop Eval 1 completed: Yes 12/22/24 1234 SOLVENT PLANT TREATER> Date _ Zacarias Skelton [employer]VENT PLANT TREATER Cosigner Signature: Date CC: ~ Signed [facility]08-11-2025 Consult note Author Ester Gallagher [facility] Note Date/Time December 22, 2024 10 :01 [facility] Medical Records Department [address] [facility] [place] [address] Pre-Anesthesia Evaluation 12/22/24 0932 MR#: [id number] Acct: [id number] Name: LYNNKERRYRAYMONLULU RASCON Rep #:[id number] : 1950 74 From: Ester Gallagher CRNA PCP: Dr. Foreign Ellington, DO Status:REG SDC Y Race: C Location: [place] [address] ASA Classification* ASA Classification ASA Classification: 3 Assessment & Plan Anesthesia* Anesthesia Assessment Anesthesia Assessment: Discussed sedation and/or anesthesia options, risks, benefits, and alternatives with patient/parents/legal guardian/POA. Questions invited. The patient/parents/legal guardian/POA seems to understand and agrees to proceedwith anesthesia plan. Reviewed the physical assessment, medical history, allergy history and patient home medications list prior to surgery/procedure/anesthetic and documented any changes. Performed airway and anesthesia risk assessments. Anesthesia Type Anesthesia Type: Spinal (Patient had lower lumbar surgery, per patient NO HARDWARE, just "bone shaved off." Explained Spinal and possibility of GA/LMA vs GETA.) and Block (Adductor canal block explained, patient states understanding. ) History Source History Obtained from:: Patient and Chart Anesthesia Focused Assessment* Temperature: 98.4 F Pulse Rate: 83 Blood Pressure: 121/79 Respiratory Rate: 16 Pulse Ox: 96 Oxygen Delivery Method: Room Air Airway Assessment Mouth opens: >3 cm Mallampati Score: III Teeth Condition: Intact Neck Range of motion (ROM): Full ROM Labs Anesthesia Preop lab: CBC WBC 7.1 K/mm3 (4.4-11.0) 11/25/24 10:11/25/24 RBC 4.64 M/mm3 (4.2-5.4) 11/25/24 10:02 11/25/24 Hgb 14.1 g/dL (12.0-15.0) 11/25/24 10:02 11/25/24 Hct 42.9 % (37-47) 11/25/24 10:02 11/25/24 Plt Count 240 K/mm3 (150-450) 11/25/24 10:02 11/25/24 CHEMISTRY Potassium 4.0 mmol/L (3.3-5.1) 11/25/24 10:02 11/25/24 Sodium 140 mmol/L (133-145) 11/25/24 10:02 11/25/24 Magnesium 2.1 mg/dL (1.5-2.2) 11/25/24 10:02 11/25/24 BUN 13 mg/dL (4-19) 11/25/24 10:02 11/25/24 Creatinine 0.87 mg/dL (0.70-1.20) 11/25/24 10:02 11/25/24 Glucose 193 mg/dL (70-99) H 11/25/24 10:02 11/25/24 TSH 2.380 uIU/mL (0.300-4.200) 11/25/24 10:02 11/11 10/05 COAG PT 24.9 SECONDS (11.7-14.9) H 12/29/21 07:00 12/12 01/02 Pre-Assessment Diagnosis/Proposed Procedure Planned Operative Procedure(s): (R) ROBOTIC ASSISTED RIGHT TOTAL KNEE ARTHROPLASTY, ERAS Anesthesia History 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 When Was Last Pacemaker Check QUESTION #4 FULL TEXT: You/Your Family Experience fever (hyperthermia) with Anesthesia Any additional information?: No Last Oral Intake Last Oral intake: Last Oral Intake NPO since 19:00 12/22/24 08:42 Meds taken in AM with sips of Yes 12/22/24 08:42 water? Meds patient instructed to did not drink ensures 12/22/24 08:42 take am of surgery Any additional information?: No PONV PONV - hard metals hand engraver: PONV - hard metals hand engraver Female Yes 11/24/24 10:32 HX of Motion Sickness Yes 11/24/24 10:32 HX of N/V After Surgery Yes 11/24/24 10:32 Non-Smoker Yes 11/24/24 10:32 Duration of Surgery greater Yes 11/24/24 10:32 than 60 minutes Number of Risk Factors 5 11/24/24 10:32 PONV Score Severe Risk 11/24/24 10:32 Any additional information?: No Height & Weight Height & Weight: Anesthesia: Height & Weight Height 5 ft 4 in 12/22/24 08:42 Weight: 86 kg 12/22/24 08:42 Body Mass Index (BMI) 32.5 12/22/24 08:42 Respiratory Assessment Respiratory Assessment - hard metals hand engraver: Respiratory Tract Infection Hx - hard metals hand engraver Hx Respiratory Tract Infection No 11/24/24 10:32 Any additional information?: No STOP Sleep Apnea STOP Sleep Apnea - hard metals hand engraver: STOP Sleep Apnea - hard metals hand engraver Hx Hypertension Yes: CONTROLLED ON MED 11/24/24 10:32 Hx Sleep Apnea Yes 11/24/24 10:32 CPAP Yes 11/24/24 10:32 BIPAP No 11/24/24 10:32 Do you snore loudly (louder than talking or can be heard Do you often feel tired/ fatigued/ sleepy during daytime? Has anyone observed you stop breathing during sleep? STOP Results Positive 11/24/24 10:32 QUESTION #5 FULL TEXT : Do you snore loudly (louder than talking or can be heard through closed doors)? 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 Specify any problems Hx of Preganancy in last 3 No 11/24/24 10:32 Months Nurse Filling Out Transfusion VCHRISTIN 11/24/24 10:32 & Questions: Date: 11/24/24 11/24/24 10:32 Time: 10:38 11/24/24 10:32 Patient unable to answer at this time (ie. confused, unrespo Any additional information?: No /Reproduction History /Reproductive History - hard metals hand engraver: /Reproductive Hx- hard metals hand engraver Hx Now No 11/24/24 10:32 Gestational Age (in weeks): EDC: Hx Hx Para Hx Section SAB No 11/24/24 10:32 Any additional information?: No Active Medications Active Medications: Current Medications Generic Name Dose Route Start Last Admin Trade Name Freq PRN Reason Stop Dose Admin Acetaminophen 1,000 mg 12/22/24 10:30 12/22/24 09:01 Acetaminophen 500 Mg Tablet PO 12/22/24 10:31 1,000 mg PREOP ONE Administration Celecoxib 400 mg 12/22/24 10:30 12/22/24 09:01 Celecoxib 200 Mg Capsule PO 12/22/24 10:31 400 mg PREOP ONE Administration Sodium Chloride 77.9 ml/ 0 ml 12/22/24 10:30 Ropivacaine 200 mg/ OPERA.SITE 12/22/24 10:31 Epinephrine HCl 0.6 mg/ INTRAOP ONE Ketorolac Tromethamine 30 mg/ Morphine Sulfate 5 mg Gabapentin 600 mg 12/22/24 10:30 12/22/24 09:01 Gabapentin 600 Mg Tablet PO 12/22/24 10:31 600 mg PREOP ONE Administration Lactated Ringer's 1,000 mls @ 999 mls/hr 12/22/24 10:30 12/22/24 08:59 IV 12/22/24 11:30 999 mls/hr .Q1H1M LICHA Administration Cefazolin Sodium 2 gm/ Sodium 110 mls @ 150 mls/hr 12/22/24 10:30 Chloride IV 12/22/24 11:13 INTRAOP ONE Tranexamic Acid 1,000 mg/ 110 mls @ 660 mls/hr 12/22/24 10:30 Sodium Chloride IV 12/22/24 10:39 INTRAOP ONE Tranexamic Acid 1,000 mg/ 110 mls @ 660 mls/hr 12/22/24 10:30 Sodium Chloride IV 12/22/24 10:39 INTRAOP ONE Lactated Ringer's 1,000 mls @ 999 mls/hr 12/22/24 10:30 IV 12/22/24 11:30 .Q1H1M LICHA Lactated Ringer's 1,000 mls @ 125 mls/hr 12/22/24 10:30 IV 12/22/24 18:29 .Q8H LICHA Magnesium Sulfate 1 gm/ 102 mls @ 408 mls/hr 12/22/24 10:30 12/22/24 09:00 Dextrose IV 12/22/24 10:44 408 mls/hr PREOP ONE Administration Insulin Human Lispro 1 - 6 unit 12/22/24 10:30 Insulin Lispro 100 Unit/Ml Insuln.Pen SC 12/22/24 18:00 Q4H PRN PRN BG>/= 180, SEE PROTOCOL Protocol PFSH Medical History History of echocardiogram Post-menopausal History of steroid therapy Diabetes Kidney stones Left ureteral stone PONV (postoperative nausea and vomiting) Wears hearing aid Wears glasses Thyroid disease Arthritis High cholesterol History of IBS CPAP (continuous positive airway pressure) dependence Sleep apnea Hypertension Cardiology follow-up encounter History of atrial fibrillation Home Medications ?Medication ?Instructions ?Recorded ?Last Taken ?Type calcium citrate 500 mg (2,376 mg) 500 mg PO DAILY 12/1212/19/24 History effervescent tablet cholecalciferol (vitamin D3) 50 50 mcg PO DAILY 12/19/24 History mcg (2,000 unit) tablet escitalopram oxalate 10 mg tablet 10 mg PO DAILY 12/2112/21/24 History furosemide 20 mg tablet 20 mg PO DAILY 12/21/2112/12 History rosuvastatin 10 mg tablet 10 mg PO DAILY 12/21/2112/12 History warfarin 2 mg tablet 6 mg PO DAILY 12/21/2112/17 History cyanocobalamin (vitamin B-12) 2,000 mcg PO DAILY 11/2412/19/24 History 1,000 mcg tablet,extended release (Vitamin B-12 ER) diltiazem HCl 300 mg 300 mg PO DAILY 11/24/2404/07 06:00 History tablet,extended release 24 hr (Matzim LA) docusate sodium 100 mg capsule 100 mg PO DAILY 5 Unknown History escitalopram oxalate 5 mg tablet 5 mg PO DAILY 5 Unknown History fluticasone furoate 100 1 inh inhalation DAILY 11/2412/22/24 06:00 History mcg/actuation blister powder for inhalation (Arnuity Ellipta) levothyroxine 75 mcg tablet 75 mcg PO DAILY 11/24/24 0 12/22/24 06:00 History semaglutide 7 mg tablet (Rybelsus) 7 mg PO DAILY 11/2412/18/24 History Allergy/AdvReac Type Severity Reaction Status Date / Time cortisone Allergy Severe Other Verified 12/22/24 09:36 Nitrate Analogues Allergy Severe Other Verified 12/22/24 09:36 erythromycin base Allergy Upset Verified 12/22/24 09:36 Stomach Penicillins (PCN) Allergy Swelling Verified 12/22/24 09:36 Surgical History History of cardiac catheterization History of partial hysterectomy Hx of total hip arthroplasty Hx of cystoscopy History of heart surgery History of hip replacement History of back surgery Hx of parathyroidectomy Social History Smoking Status: Never smoker Addt'l Information Additional Findings: INR 1.2 fingerstick. Patient with prolonged QT Review of Systems (Anesthesia) ROS Narrative System reviewed and no additional complaints, except as documented. 12/22/24 1001 <Electronically signed by Ester flynn CRNA> Date _ Ester Gallagher CRNA Cosigner Signature: Date CC: ~ Signed [facility] Work Phone: [phone] Consult note [facility] Medical Records Department [address] [place] [id number] Pre-Anesthesia Evaluation 12/22/24931 MR#: [id number] Acct: [id number] Name: RAYMON BAH Rep #:[id number] : 1950 74 From: Ester Gallagher CRNA PCP: Dr. Foreign Ellington, DO Status:REG SDC Y Race: C Location: [place] [address]- ASA Classification* ASA Classification ASA Classification: 3 Assessment & Plan Anesthesia* Anesthesia Assessment Anesthesia Assessment: Discussed sedation and/or anesthesia options, risks, benefits, and alternatives with patient/parents/legal guardian/POA. Questions invited. The patient/parents/legal guardian/POA seems to understand and agrees to proceedwith anesthesia plan. Reviewed the physical assessment, medical history, allergy history and patient home medications list prior to surgery/procedure/anesthetic and documented any changes. Performed airway and anesthesia risk assessments. Anesthesia Type Anesthesia Type: Spinal (Patient had lower lumbar surgery, per patient NO HARDWARE, just "bone shaved off." Explained Spinal and possibility of GA/LMA vs GETA.) and Block (Adductor canal block explained, patient states understanding. ) History Source History Obtained from:: Patient and Chart Anesthesia Focused Assessment* Temperature: 98.4 F Pulse Rate: 83 Blood Pressure: 121/79 Respiratory Rate: 16 Pulse Ox: 96 Oxygen Delivery Method: Room Air Airway Assessment Mouth opens: >3 cm Mallampati Score: III Teeth Condition: Intact Neck Range of motion (ROM): Full ROM Labs Anesthesia Preop lab: CBC WBC 7.1 K/mm3 (4.4-11.0) 11/25/24 10:02 11/25/24 RBC 4.64 M/mm3 (4.2-5.4) 11/25/24 10:02 11/25/24 Hgb 14.1 g/dL (12.0-15.0) 11/25/24 10:02 11/25/24 Hct 42.9 % (37-47) 11/25/24 10:02 11/25/24 Plt Count 240 K/mm3 (150-450) 11/25/24 10:02 11/25/24 CHEMISTRY Potassium 4.0 mmol/L (3.3-5.1) 11/25/24 10:02 11/25/24 Sodium 140 mmol/L (133-145) 11/25/24 10:02 11/25/24 Magnesium 2.1 mg/dL (1.5-2.2) 11/25/24 10:02 11/25/24 BUN 13 mg/dL (4-19) 11/25/24 10:02 11/25/24 Creatinine 0.87 mg/dL (0.70-1.20) 11/25/24 10:02 11/25/24 Glucose 193 mg/dL (70-99) H 11/25/24 10:02 11/25/24 TSH 2.380 uIU/mL (0.300-4.200) 11/25/24 10:02 11/11 10/05 COAG PT 24.9 SECONDS (11.7-14.9) H 12/29/21 07:00 12/12 01/02 Pre-Assessment Diagnosis/Proposed Procedure Planned Operative Procedure(s): (R) ROBOTIC ASSISTED RIGHT TOTAL KNEE ARTHROPLASTY, ERAS Anesthesia History 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 When Was Last Pacemaker Check QUESTION #4 FULL TEXT: You/Your Family Experience fever (hyperthermia) with Anesthesia Any additional information?: No Last Oral Intake Last Oral intake: Last Oral Intake NPO since 19:00 12/22/24 08:42 Meds taken in AM with sips of Yes 12/22/24 08:42 water? Meds patient instructed to did not drink ensures 12/22/24 08:42 take am of surgery Any additional information?: No PONV PONV - hard metals hand engraver: PONV - hard metals hand engraver Female Yes 11/24/24 10:32 HX of Motion Sickness Yes 11/24/24 10:32 HX of N/V After Surgery Yes 11/24/24 10:32 Non-Smoker Yes 11/24/24 10:32 Duration of Surgery greater Yes 11/24/24 10:32 than 60 minutes Number of Risk Factors 5 11/24/24 10:32 PONV Score Severe Risk 11/24/24 10:32 Any additional information?: No Height & Weight Height & Weight: Anesthesia: Height & Weight Height 5 ft 4 in 12/22/24 08:42 Weight: 86 kg 12/22/24 08:42 Body Mass Index (BMI) 32.5 12/22/24 08:42 Respiratory Assessment Respiratory Assessment - hard metals hand engraver: Respiratory Tract Infection Hx - hard metals hand engraver Hx Respiratory Tract Infection No 11/24/24 10:32 Any additional information?: No STOP Sleep Apnea STOP Sleep Apnea - hard metals hand engraver: STOP Sleep Apnea - hard metals hand engraver Hx Hypertension Yes: CONTROLLED ON MED 11/24/24 10:32 Hx Sleep Apnea Yes 11/24/24 10:32 CPAP Yes 11/24/24 10:32 BIPAP No 11/24/24 10:32 Do you snore loudly (louder than talking or can be heard Do you often feel tired/ fatigued/ sleepy during daytime? Has anyone observed you stop breathing during sleep? STOP Results Positive 11/24/24 10:32 QUESTION #5 FULL TEXT : Do you snore loudly (louder than talking or can be heard through closeddoors)? 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 Specify any problems Hx of Preganancy in last 3 No 11/24/24 10:32 Months Nurse Filling Out Transfusion VCHRISTIN 11/24/24 10:32 & Questions: Date: 11/24/24 11/24/24 10:32 Time: 10:38 11/24/24 10:32 Patient unable to answer at this time (ie. confused, unrespo Any additional information?: No /Reproduction History /Reproductive History - hard metals hand engraver: /Reproductive Hx- hard metals hand engraver Hx Now No 11/24/24 10:32 Gestational Age (in weeks): EDC: Hx Hx Para Hx Section SAB No 11/24/24 10:32 Any additional information?: No Active Medications Active Medications: Current Medications Generic Name Dose Route Start Last Admin Trade Name Freq PRN Reason Stop Dose Admin Acetaminophen 1,000 mg 12/22/24 10:30 12/22/24 09:01 Acetaminophen 500 Mg Tablet PO 12/22/24 10:31 1,000 mg PREOP ONE Administration Celecoxib 400 mg 12/22/24 10:30 12/22/24 09:01 Celecoxib 200 Mg Capsule PO 12/22/24 10:31 400 mg PREOP ONE Administration Sodium Chloride 77.9 ml/ 0 ml 12/22/24 10:30 Ropivacaine 200 mg/ OPERA.SITE 12/22/24 10:31 Epinephrine HCl 0.6 mg/ INTRAOP ONE Ketorolac Tromethamine 30 mg/ Morphine Sulfate 5 mg Gabapentin 600 mg 12/22/24 10:30 12/22/24 09:01 Gabapentin 600 Mg Tablet PO 12/22/24 10:31 600 mg PREOP ONE Administration Lactated Ringer's 1,000 mls @ 999 mls/hr 12/22/24 10:30 12/22/24 08:59 IV 12/22/24 11:30 999 mls/hr .Q1H1M LICHA Administration Cefazolin Sodium 2 gm/ Sodium 110 mls @ 150 mls/hr 12/22/24 10:30 Chloride IV 12/22/24 11:13 INTRAOP ONE Tranexamic Acid 1,000 mg/ 110 mls @ 660 mls/hr 12/22/24 10:30 Sodium Chloride IV 12/22/24 10:39 INTRAOP ONE Tranexamic Acid 1,000 mg/ 110 mls @ 660 mls/hr 12/22/24 10:30 Sodium Chloride IV 12/22/24 10:39 INTRAOP ONE Lactated Ringer's 1,000 mls @ 999 mls/hr 12/22/24 10:30 IV 12/22/24 11:30 .Q1H1M LICHA Lactated Ringer's 1,000 mls @ 125 mls/hr 12/22/24 10:30 IV 12/22/24 18:29 .Q8H LICHA Magnesium Sulfate 1 gm/ 102 mls @ 408 mls/hr 12/22/24 10:30 12/22/24 09:00 Dextrose IV 12/22/24 10:44 408 mls/hr PREOP ONE Administration Insulin Human Lispro 1 - 6 unit 12/22/24 10:30 Insulin Lispro 100 Unit/Ml Insuln.Pen SC 12/22/24 18:00 Q4H PRN PRN BG>/= 180, SEE PROTOCOL Protocol REPLACED BY [facility] Medical History History of echocardiogram Post-menopausal History of steroid therapy Diabetes Kidney stones Left ureteral stone PONV (postoperative nausea and vomiting) Wears hearing aid Wears glasses Thyroid disease Arthritis High cholesterol History of IBS CPAP (continuous positive airway pressure) dependence Sleep apnea Hypertension Cardiology follow-up encounter History of atrial fibrillation Home Medications ?Medication ?Instructions ?Recorded ?Last Taken ?Type calcium citrate 500 mg (2,376 mg) 500 mg PO DAILY 12/1212/19/24 History effervescent tablet cholecalciferol (vitamin D3) 50 50 mcg PO DAILY 12/19/24 History mcg (2,000 unit) tablet escitalopram oxalate 10 mg tablet 10 mg PO DAILY 12/2112/21/24 History furosemide 20 mg tablet 20 mg PO DAILY 12/21/2112/12 History rosuvastatin 10 mg tablet 10 mg PO DAILY 12/21/2112/12 History warfarin 2 mg tablet 6 mg PO DAILY 12/21/2112/17 History cyanocobalamin (vitamin B-12) 2,000 mcg PO DAILY 11/2412/19/24 History 1,000 mcg tablet,extended release (Vitamin B-12 ER) diltiazem HCl 300 mg 300 mg PO DAILY 11/24/2404/07 06:00 History tablet,extended release 24 hr (Matzim LA) docusate sodium 100 mg capsule 100 mg PO DAILY 5 Unknown History escitalopram oxalate 5 mg tablet 5 mg PO DAILY 5 Unknown History fluticasone furoate 100 1 inh inhalation DAILY 11/2412/22/24 06:00 History mcg/actuation blister powder for inhalation (Arnuity Ellipta) levothyroxine 75 mcg tablet 75 mcg PO DAILY 11/24/24 0 12/22/24 06:00 History semaglutide 7 mg tablet (Rybelsus) 7 mg PO DAILY 11/2412/18/24 History Allergy/AdvReac Type Severity Reaction Status Date / Time cortisone Allergy Severe Other Verified 12/22/24 09:36 Nitrate Analogues Allergy Severe Other Verified 12/22/24 09:36 erythromycin base Allergy Upset Verified 12/22/24 09:36 Stomach Penicillins (PCN) Allergy Swelling Verified 12/22/24 09:36 Surgical History History of cardiac catheterization History of partial hysterectomy Hx of total hip arthroplasty Hx of cystoscopy History of heart surgery History of hip replacement History of back surgery Hx of parathyroidectomy Social History Smoking Status: Never smoker Addt'l Information Additional Findings: INR 1.2 fingerstick. Patient with prolonged QT Review of Systems (Anesthesia) ROS Narrative System reviewed and no additional complaints, except as documented. 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 The good news is that most people feel better in 1 to2 weeks, and most of the rest in 1 to 2 months. Most people can remain active. People who have pain describe it differently not everyone is the same. The pain can be sharp, stabbing, shooting, aching, cramping or burning. Movement, standing, bending, lifting, sitting, or walking may worsen pain. It can be localized to one spot or area, or it can be more generalized. It can spread or radiate upwards, to the front, or go down your arms or legs (sciatica). It can cause muscle spasm. Most of the time, mechanical problems with the muscles or spine cause the pain. Mechanical problemsare usually caused by an injury to the muscles or ligaments. While illness can cause back pain, it is usually not caused by a serious illness. Mechanical problems include: Physical activity such as sports, exercise, work, or normal activity Overexertion, lifting, pushing, pulling incorrectly or too aggressively Sudden twisting, bending, or stretching from an accident, or accidental movement Poor posture Stretching or moving wrong, without noticing pain at the time Poor coordination, lack of regular exercise (check with your doctor about this) Spinal disc disease or arthritis Stress Pain can also be related to , or illness like appendicitis, bladder or kidney infections, pelvic infections, and many other things. Acute back pain usually gets better in 1 to 2 weeks. Back pain related to disk disease, arthritis in the spinal joints or spinal stenosis (narrowing of the spinal canal) can become chronic and last for months or years. Unless you had a physical injury (for example, a car accident or fall) X-rays are usually not needed for the initial evaluation of back pain. If pain continues and does not respond to medical treatment, X-rays and other tests may be needed. Home care Try these home care recommendations: When in bed, try to find a position of comfort. A firm mattress is best. Try lying flat on your back with pillows under your knees. You can also try lying on your side with your knees bent up towardsyour chest and a pillow between your knees. At first, do not try to stretch out the sore spots. If there is a strain, it is not like the good soreness you get after exercising without an injury. In this case, stretching may make it worse. Don't sit for long periods, as in a long car ride or during other travel. This puts more stress on the lower back than standing or walking. During the first 24 to 72 hours after an acute injury or flare up of chronic back pain, apply an ice pack to the painful area for 20 minutes and then remove it for 20 minutes. Do this over a period of 60 to 90 minutes or several times a day. This will reduce swelling and pain. Wrap the ice pack in a thin towel or plastic to protect your skin. You can start with ice, then switch to heat. Heat (hot shower, hot bath, or heating pad) reduces pain and works well for muscle spasms. Heat can be applied to the painful area for 20 minutes then remove it for 20 minutes. Do this over a period of 60 to 90 minutes or several times a day. Do not sleep on a heating pad. It can lead to skin vargas or tissue damage. You can alternate ice and heat therapy. Talk with your doctor about the best treatment for your back pain. Therapeutic massage can help relax the back muscles without stretching them. Be aware of safe lifting methods and do not lift anything without stretching first. Medicines Talk to your doctor before using medicine, especially if you have other medical problems or are taking other medicines. You may use [id number] medicine as directed on the bottle to control pain, unless another pain medicine was prescribed. If you have chronic conditions like diabetes, liver or kidney disease, stomach ulcers, or gastrointestinal bleeding, or are taking blood thinners, talk to your doctor beforetaking any medicine. Be careful if you are given a prescription medicines, narcotics, or medicine for muscle spasms. They can cause drowsiness, affect your coordination, reflexes, and judgement. Do not drive or operate heavy machinery. Follow-up care Follow up with your healthcare provider, or as advised. A radiologist will review any X-rays that were taken. Your provide will notify you of any new findings that may affect your care. Call 911 Call 911 if any of the following occur: Trouble breathing Confusion Very drowsy or trouble awakening Fainting or loss of consciousness Rapid or very slow heart rate Loss of bowel or bladder control When to seek medical advice Call your healthcare provider right away if any of these occur: Pain becomes worse or spreads to your legs Weakness or numbness in one or both legs Numbness in the groin or genital area 1512-0613 [employer]. [address] [place] [address]. All rights reserved. This information is not intended as a substitute for professional medical care. Always follow yourhealthcare professional's instructions. Follow Up Care 11/27/2024 08:11:35 With:FOREIGN ELLINGTON Address: [address] [facility] [place] [address]- [phone] Business (1) When:2-4 days Comments:Schedule appointment for close follow-up.Position of comfort, limit activity as tolerated.Use Tylenol or Advil for pain as needed.Use Lidoderm patches prescribed for pain and Ramona for severe pain asneeded.Return to the ED if symptoms worsen. [facility] 07-17-2025 Note Discharge Instructions Thank you for allowing [facility] to assist you with your healthcare needs. The following is importantdischarge information regarding your hospital visit. Diagnosis from Today's Visit Acute left-sided back pain Acute low back pain What to Do Next Instructions from Your Care Team No qualifying data available. Post Acute Orders No qualifying data available. You Need to Schedule the Following Appointments Follow Up with FOREIGN ELLINGTON When:Within 2-4 days Where:[address] [facility] [place] [address]- [phone] Business (1) Additional Information: Schedule appointment for close follow-up. Position of comfort, limit activity as tolerated. Use Tylenol or Advil for pain as needed. Use Lidoderm patches prescribed for pain and Ramona for severe pain as needed. Return to the ED if symptoms worsen. Allergies cortisone Irregular heart beat erythromycin Nausea penicillin Swelling Medications Please ask your primary doctor or pharmacist before taking any other medication not listed, including over the counter drugs, herbal medications, vitamins and or supplements as they may interact withyour home medications. What How Much When Why Instructions Last Dose New acetaminophen-hydrocodone (Ramona 325- 5 mg oral tablet) 1 tab(s) by mouth Every 6 hours as needed for As needed for severe pain Acute low back pain Duration: 3 Days Printed Prescription New lidocaine topical (Lidoderm 5% topical film) 1 patch(es) Topical Once a day as needed for As needed for pain Duration: 7 Days remove patches after 12 hours Printed Prescription Unchanged acetaminophen (Tylenol Extra Strength 500 mg oral tablet) 1 tab(s) by mouth Every 4 hours as needed for as needed for fever Unchanged ascorbic acid (Vitamin C 500 mg oral tablet) 1 tab(s) by mouth Once a day Unchanged calcium citrate 2 tab(s) by mouth Once a day 500 mg Unchanged cholecalciferol (Vitamin D3 50 mcg (2000 intl units) oral tablet) 1 tab(s) by mouth Once a day with a meal Duration: 100 Days with food. Unchanged clindamycin (clindamycin 300 mg oral capsule) by mouth Every 6 hours Unchanged cyanocobalamin (Vitamin B-12 1000 mcg oral tablet) 2 tab(s) by mouth Once a day Unchanged dilTIAZem (Matzim LA 300 mg/ 24 hours oral tablet, extended release) 1 tab(s) by mouth Once a day Unchanged DME (DME MISCellaneous) See instructions Blood glucose test strips. OneTouch Verio Flex. Test Blood sugar 1x a day and as needed. 1 box of 100. 1 refill. E11.65 Unchanged DME (DME MISCellaneous) See instructions Lancets. 31G. Test blood glucose level 1 times daily and as needed. 1 box of 100 per 90 days. 3 refills. E11.65 Unchanged docusate (docusate sodium 100 mg oral capsule) 1 cap by mouth Once a day Unchanged escitalopram (escitalopram 10 mg oral tablet) 1 tab(s) by mouth Once a day Duration: 90 Days Take with 5 mg dose for total of 15 mg once daily PO Unchanged escitalopram (escitalopram 5 mg oral tablet) 1 tab(s) by mouth Once a day Duration: 90 Days Take with 10 mg dose for total of 15 mg once daily PO Unchanged fluticasone (Arnuity Ellipta 100 mcg/ inh inhalation powder) 1 inh Every 24 hours Unchanged furosemide (furosemide 20 mg oral tablet) 1 tab(s) by mouth Once a day Unchanged herbal/ nutritional product (Probiotic) Unchanged levothyroxine (levothyroxine 75 mcg (0.075 mg) oral tablet) 1 tab(s) by mouth Once a day before a meal Unchanged nystatin topical (nystatin 100,000 units/ g topical powder) 1 application Topical Three (3) times a day as needed for Rash Duration: 90 Days Unchanged rosuvastatin (rosuvastatin 10 mg oral tablet) 1 tab(s) by mouth Daily at bedtime Duration: 100 Days Unchanged semaglutide (Rybelsus 7 mg oral tablet) 1 tab(s) by mouth Once a day take at least 30 minutes before first food, beverage, or other oral meds Unchanged warfarin (warfarin 2 mg oral tablet) 2 tab(s) by mouth Every Please take this list to your next doctor s visit. Bring all medications you take, including over the counter medications, herbals and other supplements with you to your doctor s visit. Patients and families are reminded to discard old lists and to update any records with all medication providers or retail pharmacies. Education Materials Back Pain (Acute or Chronic) Back pain is one of the most common problems. The good news is that most people feel better in 1 to2 weeks, and most of the rest in 1 to 2 months. Most people can remain active. People who have pain describe it differently not everyone is the same. The pain can be sharp, stabbing, shooting, aching, cramping or burning. Movement, standing, bending, lifting, sitting, or walking may worsen pain. It can be localized to one spot or area, or it can be more generalized. It can spread or radiate upwards, to the front, or go down your arms or legs (sciatica). It can cause muscle spasm. Most of the time, mechanical problems with the muscles or spine cause the pain. Mechanical problemsare usually caused by an injury to the muscles or ligaments. While illness can cause back pain, it is usually not caused by a serious illness. Mechanical problems include: Physical activity such as sports, exercise, work, or normal activity Overexertion, lifting, pushing, pulling incorrectly or too aggressively Sudden twisting, bending, or stretching from an accident, or accidental movement Poor posture Stretching or moving wrong, without noticing pain at the time Poor coordination, lack of regular exercise (check with your doctor about this) Spinal disc disease or arthritis Stress Pain can also be related to , or illness like appendicitis, bladder or kidney infections, pelvic infections, and many other things. Acute back pain usually gets better in 1 to 2 weeks. Back pain related to disk disease, arthritis in the spinal joints or spinal stenosis (narrowing of the spinal canal) can become chronic and last for months or years. Unless you had a physical injury (for example, a car accident or fall) X-rays are usually not needed for the initial evaluation of back pain. If pain continues and does not respond to medical treatment, X-rays and other tests may be needed. Home care Try these home care recommendations: When in bed, try to find a position of comfort. A firm mattress is best. Try lying flat on your back with pillows under your knees. You can also try lying on your side with your knees bent up towardsyour chest and a pillow between your knees. At first, do not try to stretch out the sore spots. If there is a strain, it is not like the good soreness you get after exercising without an injury. In this case, stretching may make it worse. Don't sit for long periods, as in a long car ride or during other travel. This puts more stress on the lower back than standing or walking. During the first 24 to 72 hours after an acute injury or flare up of chronic back pain, apply an ice pack to the painful area for 20 minutes and then remove it for 20 minutes. Do this over a period of 60 to 90 minutes or several times a day. This will reduce swelling and pain. Wrap the ice pack in a thin towel or plastic to protect your skin. You can start with ice, then switch to heat. Heat (hot shower, hot bath, or heating pad) reduces pain and works well for muscle spasms. Heat can be applied to the painful area for 20 minutes then remove it for 20 minutes. Do this over a period of 60 to 90 minutes or several times a day. Do not sleep on a heating pad. It can lead to skin vargas or tissue damage. You can alternate ice and heat therapy. Talk with your doctor about the best treatment for your back pain. Therapeutic massage can help relax the back muscles without stretching them. Be aware of safe lifting methods and do not lift anything without stretching first. Medicines Talk to your doctor before using medicine, especially if you have other medical problems or are taking other medicines. You may use ybvj-kbh-wyujzhz medicine as directed on the bottle to control pain, unless another pain medicine was prescribed. If you have chronic conditions like diabetes, liver or kidney disease, stomach ulcers, or gastrointestinal bleeding, or are taking blood thinners, talk to your doctor beforetaking any medicine. Be careful if you are given a prescription medicines, narcotics, or medicine for muscle spasms. They can cause drowsiness, affect your coordination, reflexes, and judgement. Do not drive or operate heavy machinery. Follow-up care Follow up with your healthcare provider, or as advised. A radiologist will review any X-rays that were taken. Your provide will notify you of any new findings that may affect your care. Call 911 Call 911 if any of the following occur: Trouble breathing Confusion Very drowsy or trouble awakening Fainting or loss of consciousness Rapid or very slow heart rate Loss of bowel or bladder control When to seek medical advice Call your healthcare provider right away if any of these occur: Pain becomes worse or spreads to your legs Weakness or numbness in one or both legs Numbness in the groin or genital area [id number] [employer]. [address] [place] [address], [place] [address]. All rights reserved. This information is not intended as a substitute for professional medical care. Always follow yourhealthcare professional's instructions. Additional Information VACCINATE! IT SAVES LIVES! Members of the community who have not yet received the COVID-19 vaccine and would like to receive it can visit one of [facility] vaccine clinics. There are many vaccine clinic locations within the [facility]. For locations and available times, please visit www.[email or web address].[place].gov/. It is important to note that some COVID mobile vaccine clinics are held outdoors and may be canceled in rainy or stormy conditions. To learn more about pediatric vaccinations (ages 5-11), we invite you to visit the [employer] webpage. https://www.[employer].org/pages/0710-Wyfyc-Rizkvjwptsn-Kktonnapgh-Eatyk-Tjx stions.htmlTo learn more about the COVID-19 vaccine, we invite you to visit the CDC website for a list of frequently asked questions. https://www.cdc.gov/coronavirus/2019-ncov/vaccines/faq.html [employer] Patient Portal Access Instructions: Stay connected with your healthcare team and access your personal medical information anytime with the [employer] Patient Portal. If you would like a full copy of your medical records please contact the [facility] Medical Records Department Sunday through Sunday between 8a.m. and 4:30p.m. Please follow the directions below to access the portal: 1.Access the email account you provided upon registration to the hospital.2.Look for an invitation email from [facility].3.Open the email and access the invitation link: Accept Invitation to [employer] [employer]4.Fill in the required [place] santos to create your account. Sign into [email or web address] with your username and password that you [...] you will allow to register on the [employer] Patient Portal for access to your information. You can also access the [employer] Patient Portal on the [employer]. Simply click on "Health Records" under "HealthData" and then click on the [employer] logo. HOW TO SAFELY DISPOSE OF PRESCRIPTION MEDICATIONS Please use one of the following methods to safely dispose of your unused medications. 1.Use a drug disposal kit: the drug disposal pouch allows you to safely discard your old and unuseddrugs. Ask your nurse to give you one when you are discharged.2.Visit a local take-back location: Many local pharmacies and police departments have programs that collect old and unwanted prescriptiondrugs. Call your local pharmacy or go to http://Qonf.farmflo/0X0Ug5k to find one close to you.3.Make use of household items: Use cat litter or old coffee grounds to dispose medications if other options arenot available. Mix your drugs with these household products, seal them in an airtight container andthrow it into the garbage. Call [facility]: [phone] to be sure your drugs can be [...] drowsiness, such as benzodiazepines, also known as benzos,including diazepam and alprazolam, muscle relaxants or sleep aids. Never sell or share prescriptionopioids. This is illegal. Store opioids in a secure place and out of reach of others (including children, family, friends and visitors). The last page(s) of this document has been signed and retained as a CHART COPY Signatures Patient Education Materials Back Pain (Acute or Chronic) Medication Leaflets My discharge plan and instructions have been reviewed and explained to me and I,RAYMON BAH V understand my current condition and have read and understand these discharge instructions. I have received a written copy of the plan/instructions. If I have questions, I am aware that I should contact my doctor. 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 The bones are diffusely demineralized. Moderate remote compression deformity of the T12 vertebral body without significant change. L4 and L5 bilateral laminectomies. Slight retrolisthesis of L2 on L3, L3 on L4 and L4 on L5. An 8 mm anterolisthesis of L5 on S1 with associated bilateral L5 pars interarticularis defects is present. Severe disc height loss at L2-L3 and less severe L3-L4 and L5-S1 present. Severe facet arthrosis at L5-S1. Degenerative changes of the bilateral sacroiliac joints. Incompletely imaged bilateral total hip replacements. IMPRESSION: 1. Moderate remote compression deformity of the T12 vertebral body. 2. L4 and L5 bilateral laminectomies. 3. 8 mm anterolisthesis of L5 on S1 with associated bilateral L5 pars interarticularis defects. 4. Severe disc height loss at L2-L3 and less severe L3-L4 and L5-S1. Interpreted by: Maximiliano Jackson MD Preliminary Report By: Maximiliano Jackson MD Electronically signed By Maximiliano Jackson MD Dictated Date: 11/27/2024 8:57:30 AM Prelim Date: 11/27/2024 9:02:41 AM Sign Date: 11/27/2024 9:02:41 AM Ordering Provider: HERNAN LOREDO [facility]06-13-2025 Note* Exam Date Time Procedure Performing Provider Status 10/24/24 12:[address] Knee w/o Contrast Right Cecilia CULLEN MD; Auth (Verified) [id number] ORIGINAL EXAMINATION: CT OF THE RIGHT KNEE WITHOUT CONTRAST 10/24/2024 1:12 pm TECHNIQUE: CT of the right knee was performed without the administration of intravenous contrast. Multiplanar reformatted images are provided for review. Automated exposure control, iterative reconstruction, and/or weight based adjustment of the mA/kV was utilized to reduce the radiation dose to as low as reasonably achievable. COMPARISON: None. HISTORY ORDERING SYSTEM PROVIDED HISTORY: Reason for Exam: UNILATERAL PRIMARY OSTEOARTHRITIS RIGHT KNEE FINDINGS: Overall moderate knee osteoarthritis, with severe joint space narrowing medially. There subchondral sclerosis in the medial knee compartment. Tricompartmental marginal osteophytes. Chondrocalcinosis. Small effusion. No soft tissue mass. Bilateral INO IMPRESSION: Knee osteoarthritis with small effusion. Images were acquired for preoperative planning Interpreted by: Frandy Cullen Preliminary Report By: Frandy Cullen Electronically signed By Frandy Cullen Dictated Date: 10/24/2024 1:29:41 PM Prelim Date: 10/24/2024 1:31:58 PM Sign Date: 10/24/2024 1:31:58 PM Ordering Provider: YOSSI BURNETTE [facility]02-11-2025 Hospital Discharge instructions Patient Education 06/24/2024 14:51:20 Braces for Lower Musculoskeletal Injuries Braces for Lower Musculoskeletal Injuries To help heal certain ankle injuries, the ankle can be stabilized with a brace. There are 2 types ofbraces commonly used to treat musculoskeletal injures: rigid braces and functional braces. They areoften used for ankle injuries. Rigid braces keep the injured area still, or immobilized. Functional braces let the injured area move a little. These braces let you move your ankle up or down. But they stop your ankle from moving from side to side. The type of brace you will have will depend on how severe your injury is and the type of injury. Braces, especially the rigid type, hold the injured area in place. This can help repair lower musculoskeletal injuries or conditions by: Increasing blood supply to the damaged area Limiting movement to help decrease pain Offering greater stability to help prevent further injury Decreasing swelling or muscle spasm Home care Follow your healthcare provider s instructions when using the brace. Always ask when the brace needs to be worn. Always ask when the brace can be removed. Check the brace daily, and as needed, for loose objects. Check the brace for defects such as nicks or tears. Follow the arc and gas welder's or provider s instructions on how to clean the brace. The brace may have fabric areas that can be washed. If the brace has straps, tighten them if they become loose. The brace should feel comfortable. The straps should feel firm and secure, but not too tight. Your toes should be able to wiggle easily. Your provider may also use an elastic bandage. Follow the provider s instructions on how to use theelastic bandage. Always ask how to put it on and remove it from your injured foot. Always ask when to use the elastic bandage with, or without, the brace. Always ask when the elastic bandage needs macho worn. Always ask when the elastic bandage can be removed. Check how your ankle is healing. Always inspect the surrounding skin for any irritation or damage caused by the brace. Call your healthcare provider if you see any problems or have any concerns. If you have any questions on how to use the brace, contact your provider. Follow-up care Follow up with your healthcare provider, or as advised. Depending on the injury, you may need to see an orthopedic, or bone, doctor. Or you may need to see a foot and ankle specialist. You may also need physical therapy to further check or treat the injured area. When to seek medical advice Call your healthcare provider right away if any of these occur: Increase in pain, swelling, or instability occurs when wearing the brace. Any skin discoloration (red, blue, purple), sores, blisters, infection, or irritation occurs on theinjured foot. The injured foot feels cool to the touch. Or a numb and tingly feeling occurs when wearing the brace. The brace doesn t fit well. You can t put weight on the injured area when wearing the brace. You have questions about using the brace. The brace gets wet. [employer]. [address] [place] [address]. All rights reserved. This information is not intended as a substitute for professional medical care. Always follow yourhealthcare professional's instructions. 06/24/2024 14:19:34 Arthralgia Arthralgia Arthralgia is the term for pain in or around the joint. It is a symptom, not a disease. This pain may involve one or more joints. In some cases, the pain moves from joint to joint. There are many causes for joint pain. These include: Injury Osteoarthritis (wearing out of the joint surface) Gout (inflammation of the joint due to crystals in the joint fluid) Infection inside the joint Bursitis (inflammation of the fluid-filled sacs around the joint) Autoimmune disorders such as rheumatoid arthritis or lupus Tendonitis (inflammation of chords that attach muscle to bone) Home care Rest the involved joint(s) until your symptoms improve. You may be prescribed pain medicine. If none is prescribed, you may use acetaminophen or ibuprofen to control pain and inflammation. Follow-up care Follow up with your healthcare provider or as advised. When to seek medical advice Contact your healthcare provider right away if any of the following occurs: Pain, swelling, or redness of joint increases Pain worsens or recurs after a period of improvement Pain moves to other joints You cannot bear weight on the affected joint You cannot move the affected joint Joint appears deformed New rash appears Fever of 100.4 F (38 C) or higher, or as directed by your healthcare provider [employer]. [address] [place] [address]. All rights reserved. This information is not intended as a substitute for professional medical care. Always follow yourhealthcare professional's instructions. 06/24/2024 14:19:30 Peters's Cyst Peters s Cyst You have a Peters s cyst. This is a lump or bulge in the back of your knee. It is caused when extra joint fluid flows into a small sac behind the knee. The extra fluid occurs because arthritis or a torn cartilage irritates the knee joint. A small Peters s cyst often has no symptoms. A larger cyst can cause some knee pain or a feeling of pressure behind your knee when you try to fully straighten or bend that joint. A Peters s cyst can leak, leading fluid to move down into your lower leg. This causes swelling, pain, and redness. Treatment may involve draining the extra fluid. Or medicine may be injected to reduce redness and swelling. If the extra fluid is caused by a torn cartilage, then surgery to repair the cartilage may be the best treatment option. If arthritis is the cause, and it does not get better with treatment, surgery may need to address the arthritis and cyst. Home care If you have knee pain, stay off the affected leg as much as possible until the pain eases. Apply an ice pack to the painful area for no more than 20 minutes. Do this every 3 to 6 hours for the first 24 to 48 hours. Keep using ice packs 3 to 4 times a day for the next few days, as needed for pain. To make an ice pack, put ice cubes in a sealed zip-lock plastic bag. Wrap the bag in a clean, thin towel or cloth. Never put ice or an ice pack directly on the skin. If you were given a bdgl-qrc-tblg knee brace, you may open the brace to apply ice. Unless told otherwise, you may remove the brace to bathe and sleep. You may use skhr-wli-fqrgavi pain medicine to control pain, unless another medicine was prescribed.Talk with your provider before using these medicines if you have chronic liver or kidney disease, or have ever had a stomach ulcer or gastrointestinal bleeding. If crutches or a walker have been recommended, don t bear full weight on your injured leg until youcan do so without pain. Check with your provider before returning to sports or full work duties. Follow-up care Follow up with your healthcare provider within 1 to 2 weeks, or as advised. If X-rays were taken, you will be notified of any new findings that may affect your care. When to seek medical advice Call your healthcare provider right away if any of these occur: Toes or foot become swollen, cold, blue, numb or tingly Pain or swelling increases Warmth or redness appears over the knee Redness, swelling or pain occurs in the calf or lower leg Fever or chills [id number] [employer]. [address] [place] [address], [place] [address]. All rights reserved. This information is not intended as a substitute for professional medical care. Always follow yourhealthcare professional's instructions. Follow Up Care 06/24/2024 12:30:49 With:YOSSI BURNETTE DO Orthopedic Address: [address] [place] [phone] When:2-4 days With:FOREIGN ELLINGTON DO Address: [address] [place] [phone] When:2-4 days [facility] 02-11-2025 Note Discharge Instructions Thank you for allowing [facility] to assist you with your healthcare needs. The following is importantdischarge information regarding your hospital visit. Diagnosis from Today's Visit Peters cyst Right ankle pain What to Do Next Instructions from Your Care Team Start taking Tylenol twice daily over the next few days to help with the pain. Please follow up with primary care. No qualifying data available. Post Acute Orders No qualifying data available. You Need to Schedule the Following Appointments Follow Up with YOSSI BURNETTE DO Orthopedic When:Within 2-4 days Where:[address] [place] [phone] Follow Up with FOREIGN ELLINGTON DO When:Within 2-4 days Where:[address] [place] [phone] Allergies erythromycin Nausea penicillin Swelling Medications Please ask your primary doctor or pharmacist before taking any other medication not listed, including over the counter drugs, herbal medications, vitamins and or supplements as they may interact withur home medications. What How Much When Instructions Last Dose Unchanged acetaminophen (Tylenol Extra Strength 500 mg oral tablet) 1 tab(s) by mouth Every 4 hours as needed for as needed for fever Unchanged ascorbic acid (Vitamin C 500 mg oral tablet) 1 tab(s) by mouth Once a day Unchanged calcium citrate 2 tab(s) by mouth Once a day 500 mg Unchanged cholecalciferol (Vitamin D3 50 mcg (2000 intl units) oral tablet) 1 tab(s) by mouth Once a day with a meal Duration: 100 Days with food. Unchanged clindamycin (clindamycin 300 mg oral capsule) by mouth Every 6 hours Unchanged cyanocobalamin (Vitamin B-12 1000 mcg oral tablet) 2 tab(s) by mouth Once a day Unchanged dilTIAZem (dilTIAZem 300 mg/ 24 hours oral capsule, extended release) 1 cap by mouth Once a day per cardiology Unchanged DME (DME MISCellaneous) See instructions Blood Glucose Meter Kit. OneTouch Verio Flex. Test blood glucose level 1 time daily and as needed. 1 kit. 0 refills. E11.65 Unchanged DME (DME MISCellaneous) See instructions Blood glucose test strips. OneTouch Verio Flex. Test Blood sugar 1x a day and as needed. 1 box of 100. 1 refill. E11.65 Unchanged DME (DME MISCellaneous) See instructions Lancets. 31G. Test blood glucose level 1 times daily and as needed. 1 box of 100 per 90 days. 3 refills. E11.65 Unchanged docusate (docusate sodium 100 mg oral capsule) 1 cap by mouth Once a day Unchanged escitalopram (escitalopram 10 mg oral tablet) 1 tab(s) by mouth Once a day Duration: 100 Days Take with 5 mg tab for total of 15 mg PO once daily. Unchanged escitalopram (escitalopram 5 mg oral tablet) 1 tab(s) by mouth Once a day Duration: 100 Days Take with 10 mg tab for total of 15 mg PO once daily. Unchanged fluticasone-vilanterol (Breo Ellipta 200 mcg-25 mcg/ inh inhalation powder) TAKE 1 PUFF BY MOUTH EVERY DAY Unchanged furosemide (furosemide 20 mg oral tablet) 1 tab(s) by mouth Once a day Unchanged herbal/ nutritional product (Probiotic) Unchanged levothyroxine (levothyroxine 50 mcg (0.05 mg) oral tablet) 1 tab(s) by mouth Once a day before a meal as a single daily dose before breakfast Unchanged nystatin topical (nystatin 100,000 units/ g topical powder) 1 application Topical Three (3) times a day as needed for Rash Duration: 90 Days Unchanged rosuvastatin (rosuvastatin 10 mg oral tablet) 1 tab(s) by mouth Daily at bedtime Duration: 100 Days Unchanged semaglutide (Rybelsus 7 mg oral tablet) 1 tab(s) by mouth Once a day take at least 30 minutes before first food, beverage, or other oral meds Unchanged warfarin (warfarin 2 mg oral tablet) 3 tab by mouth Every Sun/Mon///Sat Unchanged warfarin (warfarin 2 mg oral tablet) 2 tab(s) by mouth Every Sunday and Sunday Please take this list to your next doctor s visit. Bring all medications you take, including over the counter medications, herbals and other supplements with you to your doctor s visit. Patients and families are reminded to discard old lists and to update any records with all medication providers or retail pharmacies. Education Materials Braces for Lower Musculoskeletal Injuries To help heal certain ankle injuries, the ankle can be stabilized with a brace. There are 2 types ofbraces commonly used to treat musculoskeletal injures: rigid braces and functional braces. They areoften used for ankle injuries. Rigid braces keep the injured area still, or immobilized. Functional braces let the injured area move a little. These braces let you move your ankle up or down. But they stop your ankle from moving from side to side. The type of brace you will have will depend on how severe your injury is and the type of injury. Braces, especially the rigid type, hold the injured area in place. This can help repair lower musculoskeletal injuries or conditions by: Increasing blood supply to the damaged area Limiting movement to help decrease pain Offering greater stability to help prevent further injury Decreasing swelling or muscle spasm Home care Follow your healthcare provider s instructions when using the brace. Always ask when the brace needs to be worn. Always ask when the brace can be removed. Check the brace daily, and as needed, for loose objects. Check the brace for defects such as nicks or tears. Follow the arc and gas welder's or provider s instructions on how to clean the brace. The brace may have fabric areas that can be washed. If the brace has straps, tighten them if they become loose. The brace should feel comfortable. The straps should feel firm and secure, but not too tight. Your toes should be able to wiggle easily. Your provider may also use an elastic bandage. Follow the provider s instructions on how to use theelastic bandage. Always ask how to put it on and remove it from your injured foot. Always ask when to use the elastic bandage with, or without, the brace. Always ask when the elastic bandage needs macho worn. Always ask when the elastic bandage can be removed. Check how your ankle is healing. Always inspect the surrounding skin for any irritation or damage caused by the brace. Call your healthcare provider if you see any problems or have any concerns. If you have any questions on how to use the brace, contact your provider. Follow-up care Follow up with your healthcare provider, or as advised. Depending on the injury, you may need to see an orthopedic, or bone, doctor. Or you may need to see a foot and ankle specialist. You may also need physical therapy to further check or treat the injured area. When to seek medical advice Call your healthcare provider right away if any of these occur: Increase in pain, swelling, or instability occurs when wearing the brace. Any skin discoloration (red, blue, purple), sores, blisters, infection, or irritation occurs on theinjured foot. The injured foot feels cool to the touch. Or a numb and tingly feeling occurs when wearing the brace. The brace doesn t fit well. You can t put weight on the injured area when wearing the brace. You have questions about using the brace. The brace gets wet. [id number] [employer]. [address] [place] [address]. All rights reserved. This information is not intended as a substitute for professional medical care. Always follow yourhealthcare professional's instructions. Arthralgia Arthralgia is the term for pain in or around the joint. It is a symptom, not a disease. This pain may involve one or more joints. In some cases, the pain moves from joint to joint. There are many causes for joint pain. These include: Injury Osteoarthritis (wearing out of the joint surface) Gout (inflammation of the joint due to crystals in the joint fluid) Infection inside the joint Bursitis (inflammation of the fluid-filled sacs around the joint) Autoimmune disorders such as rheumatoid arthritis or lupus Tendonitis (inflammation of chords that attach muscle to bone) Home care Rest the involved joint(s) until your symptoms improve. You may be prescribed pain medicine. If none is prescribed, you may use acetaminophen or ibuprofen to control pain and inflammation. Follow-up care Follow up with your healthcare provider or as advised. When to seek medical advice Contact your healthcare provider right away if any of the following occurs: Pain, swelling, or redness of joint increases Pain worsens or recurs after a period of improvement Pain moves to other joints You cannot bear weight on the affected joint You cannot move the affected joint Joint appears deformed New rash appears Fever of 100.4 F (38 C) or higher, or as directed by your healthcare provider [id number] [employer]. [address] [place] [phone]. All rights reserved. This information is not intended as a substitute for professional medical care. Always follow yourhealthcare professional's instructions. Peters s Cyst You have a Peters s cyst. This is a lump or bulge in the back of your knee. It is caused when extra joint fluid flows into a small sac behind the knee. The extra fluid occurs because arthritis or a torn cartilage irritates the knee joint. A small Peters s cyst often has no symptoms. A larger cyst can cause some knee pain or a feeling of pressure behind your knee when you try to fully straighten or bend that joint. A Peters s cyst can leak, leading fluid to move down into your lower leg. This causes swelling, pain, and redness. Treatment may involve draining the extra fluid. Or medicine may be injected to reduce redness and swelling. If the extra fluid is caused by a torn cartilage, then surgery to repair the cartilage may be the best treatment option. If arthritis is the cause, and it does not get better with treatment, surgery may need to address the arthritis and cyst. Home care If you have knee pain, stay off the affected leg as much as possible until the pain eases. Apply an ice pack to the painful area for no more than 20 minutes. Do this every 3 to 6 hours for the first 24 to 48 hours. Keep using ice packs 3 to 4 times a day for the next few days, as needed for pain. To make an ice pack, put ice cubes in a sealed zip-lock plastic bag. Wrap the bag in a clean, thin towel or cloth. Never put ice or an ice pack directly on the skin. If you were given a hlrg-hqh-rqsj knee brace, you may open the brace to apply ice. Unless told otherwise, you may remove the brace to bathe and sleep. You may use kmcw-wps-saohrru pain medicine to control pain, unless another medicine was prescribed.Talk with your provider before using these medicines if you have chronic liver or kidney disease, or have ever had a stomach ulcer or gastrointestinal bleeding. If crutches or a walker have been recommended, don t bear full weight on your injured leg until youcan do so without pain. Check with your provider before returning to sports or full work duties. Follow-up care Follow up with your healthcare provider within 1 to 2 weeks, or as advised. If X-rays were taken, you will be notified of any new findings that may affect your care. When to seek medical advice Call your healthcare provider right away if any of these occur: Toes or foot become swollen, cold, blue, numb or tingly Pain or swelling increases Warmth or redness appears over the knee Redness, swelling or pain occurs in the calf or lower leg Fever or chills [id number] [employer]. [address] [place] [address], [place] [address]. All rights reserved. This information is not intended as a substitute for professional medical care. Always follow yourhealthcare professional's instructions. Additional Information VACCINATE! IT SAVES LIVES! Members of the community who have not yet received the COVID-19 vaccine and would like to receive it can visit one of [facility] vaccine clinics. There are many vaccine clinic locations within the [facility]. For locations and available times, please visit [email or web address] It is important to note that some COVID mobile vaccine clinics are held outdoors and may be canceled in rainy or stormy conditions. To learn more about pediatric vaccinations (ages 5-11), we invite you to visit the [facility] webpage. [email or web address] learn more about the COVID-19 vaccine, we invite you to visit the CDC website for a list of frequently asked questions. https://www.cdc.gov/coronavirus/2019-ncov/vaccines/faq.html [facility] Patient Portal Access Instructions: Stay connected with your healthcare team and access your personal medical information anytime with the [facility] Patient Portal. If you would like a full copy of your medical records please contact the [facility] Medical Records Department Sunday through Sunday between 8a.m. and 4:30p.m. Please follow the directions below to access the portal: 1.Access the email account you provided upon registration to the [facility].2.Look for an invitation email from [facility].3.Open the email and access the invitation link: Accept Invitation to [facility]4.Fill in the required de [place] to create your account. Sign into [email or web address] with your username and password that you [...] you will allow to register on the [facility] Patient Portal for access to your information. You can also access the [facility] Patient Portal on the [employer]. Simply click on "Health Records" under "[facility]" and then click on the [facility] logo. HOW TO SAFELY DISPOSE OF PRESCRIPTION MEDICATIONS Please use one of the following methods to safely dispose of your unused medications. 1.Use a drug disposal kit: the drug disposal pouch allows you to safely discard your old and unuseddrugs. Ask your nurse to give you one when you are discharged.2.Visit a local take-back location: Many local pharmacies and police departments have programs that collect old and unwanted prescriptiondrugs. Call your local pharmacy or go to http://Qonf.farmflo/4M7Rs4t to find one close to you.3.Make use of household items: Use cat litter or old coffee grounds to dispose medications if other options arenot available. Mix your drugs with these household products, seal them in an airtight container andthrow it into the garbage. Call [facility]: [phone] to be sure your drugs can be [...] drowsiness, such as benzodiazepines, also known as benzos,including diazepam and alprazolam, muscle relaxants or sleep aids. Never sell or share prescriptionopioids. This is illegal. Store opioids in a secure place and out of reach of others (including children, family, friends and visitors). The last page(s) of this document has been signed and retained as a CHART COPY Signatures Patient Education Materials Braces for Lower Musculoskeletal Injuries Arthralgia Peters's Cyst Medication Leaflets My discharge plan and instructions have been reviewed and explained to me and I,RAYMON BAH V understand my current condition and have read and understand these discharge instructions. I have received a written copy of the plan/instructions. If I have questions, I am aware that I should contact my doctor. 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 The ankle mortise and talar dome are normal. Calcaneal spurring is seen. Calcifications of the Achilles tendon and plantar fascia are also noted. The joint spaces are maintained. There is no radiopaque foreign body. Vascular calcifications are seen. IMPRESSION: No acute fracture or dislocation. I have personally reviewed the images of this examination and agree with the resident's findings and interpretation. Interpreted by: Asim Posada MD Preliminary Report By: Elaine Luong Electronically signed By Asim Posada MD Dictated Date: 06/24/2024 1:16:23 PM Prelim Date: 06/24/2024 1:25:30 PM Sign Date: 06/24/2024 1:25:30 PM Ordering Provider: [facility]12-13-2024 Note ORIGINAL EXAMINATION: BONE DENSITOMETRY 04/25/2024 3:03 pm TECHNIQUE: A bone density dual x-ray absorptiometry (DEXA) scan was performed of the axial (e.g. hips, spine) and/or appendicular (e.g. radius) skeleton as appropriate. COMPARISON: 03/20/2022. HISTORY: ORDERING SYSTEM PROVIDED HISTORY: Reason for Exam: Osteoporosis Screening FINDINGS: T Score Left Forearm: -2.4 Left Forearm: 0.543(g/cm2) T Score Right Forearm: -2.7 Right Forearm: 0.528 (g/cm2) BMD change from previous right forearm: 0.4% IMPRESSION: Osteoporosis by WHO criteria. World Health Organization criteria: (Comparing with young normal sex matched population) - Normal: T-score at or above -1 SD (standard deviation) - Osteopenia: T-score between -1 and -2.5 SD - Osteoporosis: T-score at or below -2.5 SD The NOF recommends that FDA-approved medical therapies be considered in post-menopausal women and men age >/= 50 years with a: * Hip or vertebral fracture, or * T-score of /= 20% for major osteoporotic fractures or * >/= 3% for hip fractures All treatment decisions require clinical judgement and consideration of individual patient factors, including patient preferences, comorbidities, previous drug use, risk factors not captured in the FRAX registered model (e.g., frailty, falls, vitamin D deficiency, increased bone turnover, interval significant decline in bone density) and possible under- or over-estimation of fracture risk by FRAX. Interpreted by: Daniel Meeks DO Preliminary Report By: Daniel Meeks DO Electronically signed By Daniel Meeks DO Dictated Date: 04/25/2024 4:42:59 PM Prelim Date: 04/25/2024 4:44:20 PM Sign Date: 04/25/2024 4:44:20 PM Ordering Provider: [facility]08-23-2024 Note. MICRO - Microbiology PROCEDURE: Urine Culture [*1] SOURCE: Urine, Clean Catch BODY SITE: COLLECTED DATE/TIME: 01/02/2024 14:37 EDT RECEIVED DATE/TIME: 01/02/2024 20:12 EDT START DATE/TIME: 01/02/2024 20:12 EDT FREE TEXT SOURCE: FINAL REPORTS Final Report [] Verified Date/Time/Personnel: 01/04/2024 08:03 EDT 50,000 - 100,000 cfu/ml Escherichia coli PRELIMINARY REPORTS Preliminary Report [] Verified Date/Time/Personnel: 01/03/2024 11:26 EDT 50,000 - 100,000 cfu/ml Escherichia coli BONNIE to follow SUSCEPTIBILITY RESULTS Escherichia coli Antibiotic BONNIE Dilut BONNIE Inter Ampicillin <=8 Susceptible Ampicillin/ <=4/2 Susceptible Sulbactam Aztreonam <=4 Susceptible Cefazolin <=2 Susceptible Ciprofloxacin <=0.25 Susceptible Ertapenem <=0.5 Susceptible Gentamicin <=2 Susceptible ID Panel Not Not Applicable Applicable Imipenem <=1 Susceptible Levofloxacin <=0.5 Susceptible Meropenem <=1 Susceptible Minocycline <=4 Susceptible Nitrofurantoin <=32 Susceptible Trimethoprim/ <=0.5/9.5 Susceptible Sulfa Performing Locations *1: This test was performed at: [address], [address] , [facility]12-05-2023 Hospital Discharge instructions Patient Education 12/05/2023 13:54:46 Atrial Fibrillation Atrial Fibrillation Atrial fibrillation is a condition in which the heart beats in an irregular pattern. It is caused by a problem in the heart's electrical pathways. It can be a sign of heart disease or other health problems that affect the heart. Heart palpitations are the most common symptom of atrial fibrillation. This is the feeling that your heart is fluttering, beating fast, hard, or irregular. When the heart beats too fast, it doesn't pump blood very well. This can cause other symptoms like anxiety, fatigue, shortness of breath, chestpain, dizziness, or fainting. Atrial fibrillation may come and go. It can last from a few hours to a couple of days. Or, it may become chronic, lasting for months at a time or even become permanent. Atrial fibrillation may be caused by heart disease or other conditions in the body that affect the heart: Coronary artery disease (atherosclerosis) High blood pressure Disease of the heart valves Enlarged heart Heart failure Atrial fibrillation can also occur without heart disease because of: Overactive thyroid (hyperthyroid) Chronic lung disease (COPD, emphysema, bronchitis) Heavy alcohol use Cardiac stimulants like cocaine, amphetamines, diet pills, certain decongestant cold medicines, caffeine, or nicotine Infection Blood clot in the lung (pulmonary embolus) Diabetes Chronic kidney disease Obesity Extreme athletic conditioning Treating or removing these causes will help your treatment for atrial fibrillation. It will also make it less likely for the atrial fibrillation to come back. Atrial fibrillation can alternate back and forth with another abnormal rhythm called atrial flutter. Atrial flutter is a more regular heart rhythm and is also associated with an increased stroke risk. Proper treatment can lower your risk for stroke. Home care Follow these guidelines when caring for yourself at home: Go back to your usual activities as soon as you are feeling back to normal. If you smoke, stop smoking. Contact your healthcare provider or a local stop- smoking program for help. Don't use stimulants like alcohol, cocaine, amphetamines, diet pills, certain decongestant cold medicines, caffeine, or nicotine. If your provider prescribed medicine to stop atrial fibrillation from coming back, take it exactly as directed. Some medicines must be taken every day, not just when you have symptoms. This will helpthem work as they should. If you were prescribed warfarin to lower your risk for stroke, have your blood tested on a regular basis as advised by your provider. This will make sure you are getting the dose that is right for you. It also lower your risk for side effects. Follow-up care Follow up with your healthcare provider, or as advised. When to seek medical advice Call your healthcare provider right away if any of these following occur: Shortness of breath or swelling in the legs gets worse Unexpected weight gain Chest pain or the sense that your heart is fluttering or beating fast or hard (palpitations) Any sign of bleeding if you are on a blood thinner Pain, redness, or swelling in one leg Also call your provider right away if you have these signs of stroke: Weakness of an arm or leg or one side of the face Difficulty with speech or vision Extreme drowsiness, confusion, dizziness, or fainting [id number] [employer]. [address] [place] [address]. All rights reserved. This information is not intended as a substitute for professional medical care. Always follow yourhealthcare professional's instructions. Follow Up Care 12/05/2023 10:57:58 With:FOREIGN ELLINGTON DO Address: [address] [place] [phone] When:2-4 days [facility] 07-24-2024 Note Discharge Instructions Thank you for allowing [facility] to assist you with your healthcare needs. The following is importantdischarge information regarding your hospital visit. Diagnosis from Today's Visit Atrial fibrillation Dehydration Hyperglycemia due to diabetes mellitus What to Do Next Instructions from Your Care Team No qualifying data available. Post Acute Orders No qualifying data available. You Need to Schedule the Following Appointments Follow Up with FOREIGN ELLINGTON DO When:Within 2-4 days Where:[address] [place] [phone] Allergies erythromycin Nausea penicillin Swelling Medications Please ask your primary doctor or pharmacist before taking any other medication not listed, including over the counter drugs, herbal medications, vitamins and or supplements as they may interact withyour home medications. What How Much When Instructions Last Dose Unchanged acetaminophen (Tylenol Extra Strength 500 mg oral tablet) 1 tab(s) by mouth Every 4 hours as needed for as needed for fever Unchanged albuterol (Ventolin HFA MDI (90 mcg/ inh) inhalation aerosol) 2 puff(s) by inhalation Every 4 hours as needed for as needed for wheezing Unchanged calcium citrate 2 tab(s) by mouth Once a day 500 mg Unchanged cholecalciferol (Vitamin D3 50 mcg (2000 intl units) oral tablet) 1 tab(s) by mouth Once a day with a meal Duration: 90 Days with food Unchanged dilTIAZem (DilTIAZem Hydrochloride ER 180 mg/ 24 hours oral capsule, extended release) TAKE 1 CAPSULE BY MOUTH EVERY DAY Unchanged DME (DME MISCellaneous) See instructions Blood glucose test strips . Test Blood sugar 1x a day E11.65 Unchanged escitalopram (escitalopram 20 mg oral tablet) 1 tab(s) by mouth Once a day Duration: 100 Days Unchanged fluticasone-vilanterol (Breo Ellipta 200 mcg-25 mcg/ inh inhalation powder) TAKE 1 PUFF BY MOUTH EVERY DAY Unchanged furosemide (furosemide 20 mg oral tablet) 1 tab(s) by mouth Once a day Unchanged levothyroxine (levothyroxine 50 mcg (0.05 mg) oral tablet) 1 tab(s) by mouth Once a day before a meal Duration: 30 Days as a single daily dose before breakfast Unchanged levothyroxine (levothyroxine 50 mcg (0.05 mg) oral tablet) 1 tab(s) by mouth Once a day before a meal as a single daily dose before breakfast Unchanged loperamide (Imodium A-D 2 mg oral tablet) 1 tab(s) by mouth Every 4 hours as needed for abdominal pain/diarrhea Unchanged nystatin topical (nystatin 100,000 units/ g topical powder) 1 application Topical Three (3) times a day as needed for Rash Duration: 90 Days Unchanged rosuvastatin (rosuvastatin 10 mg oral tablet) 1 tab(s) by mouth Daily at bedtime Duration: 100 Days Unchanged semaglutide (Rybelsus 7 mg oral tablet) 1 tab(s) by mouth Once a day take at least 30 minutes before first food, beverage, or other oral meds Unchanged warfarin (warfarin 2 mg oral tablet) 3 tab by mouth Every Sun/Sun///Sat Unchanged warfarin (warfarin 2 mg oral tablet) 2 tab(s) by mouth Every Sunday and Sunday Please take this list to your next doctor s visit. Bring all medications you take, including over the counter medications, herbals and other supplements with you to your doctor s visit. Patients and families are reminded to discard old lists and to update any records with all medication providers or retail pharmacies. Education Materials Atrial Fibrillation Atrial fibrillation is a condition in which the heart beats in an irregular pattern. It is caused by a problem in the heart's electrical pathways. It can be a sign of heart disease or other health problems that affect the heart. Heart palpitations are the most common symptom of atrial fibrillation. This is the feeling that your heart is fluttering, beating fast, hard, or irregular. When the heart beats too fast, it doesn't pump blood very well. This can cause other symptoms like anxiety, fatigue, shortness of breath, chestpain, dizziness, or fainting. Atrial fibrillation may come and go. It can last from a few hours to a couple of days. Or, it may become chronic, lasting for months at a time or even become permanent. Atrial fibrillation may be caused by heart disease or other conditions in the body that affect the heart: Coronary artery disease (atherosclerosis) High blood pressure Disease of the heart valves Enlarged heart Heart failure Atrial fibrillation can also occur without heart disease because of: Overactive thyroid (hyperthyroid) Chronic lung disease (COPD, emphysema, bronchitis) Heavy alcohol use Cardiac stimulants like cocaine, amphetamines, diet pills, certain decongestant cold medicines, caffeine, or nicotine Infection Blood clot in the lung (pulmonary embolus) Diabetes Chronic kidney disease Obesity Extreme athletic conditioning Treating or removing these causes will help your treatment for atrial fibrillation. It will also make it less likely for the atrial fibrillation to come back. Atrial fibrillation can alternate back and forth with another abnormal rhythm called atrial flutter. Atrial flutter is a more regular heart rhythm and is also associated with an increased stroke risk. Proper treatment can lower your risk for stroke. Home care Follow these guidelines when caring for yourself at home: Go back to your usual activities as soon as you are feeling back to normal. If you smoke, stop smoking. Contact your healthcare provider or a local stop- smoking program for help. Don't use stimulants like alcohol, cocaine, amphetamines, diet pills, certain decongestant cold medicines, caffeine, or nicotine. If your provider prescribed medicine to stop atrial fibrillation from coming back, take it exactly as directed. Some medicines must be taken every day, not just when you have symptoms. This will helpthem work as they should. If you were prescribed warfarin to lower your risk for stroke, have your blood tested on a regular basis as advised by your provider. This will make sure you are getting the dose that is right for you. It also lower your risk for side effects. Follow-up care Follow up with your healthcare provider, or as advised. When to seek medical advice Call your healthcare provider right away if any of these following occur: Shortness of breath or swelling in the legs gets worse Unexpected weight gain Chest pain or the sense that your heart is fluttering or beating fast or hard (palpitations) Any sign of bleeding if you are on a blood thinner Pain, redness, or swelling in one leg Also call your provider right away if you have these signs of stroke: Weakness of an arm or leg or one side of the face Difficulty with speech or vision Extreme drowsiness, confusion, dizziness, or fainting 8100-2615 [employer]. [address] [place] [address], [place] [address]. All rights reserved. This information is not intended as a substitute for professional medical care. Always follow yourhealthcare professional's instructions. Additional Information VACCINATE! IT SAVES LIVES! Members of the community who have not yet received the COVID-19 vaccine and would like to receive it can visit one of [facility] vaccine clinics. There are many vaccine clinic locations within the [facility]. For locations and available times, please visit [email or web address] It is important to note that some COVID mobile vaccine clinics are held outdoors and may be canceled in rainy or stormy conditions. To learn more about pediatric vaccinations (ages 5-11), we invite you to visit the [facility] webpage. https://www.[email or web address].org/pages/[email or web address]-Kqqqf-Hwunkkqkbym-Fvtgziowla-Nrdsy-Uri stions.htmlTo learn more about the COVID-19 vaccine, we invite you to visit the CDC website for a list of frequently asked questions. https://www.cdc.gov/coronavirus/2019-ncov/vaccines/faq.html [facility] Patient Portal Access Instructions: Stay connected with your healthcare team and access your personal medical information anytime with the [facility] Patient Portal. If you would like a full copy of your medical records please contact the [facility] Medical Records Department Sunday through Sunday between 8a.m. and 4:30p.m. Please follow the directions below to access the portal: 1.Access the email account you provided upon registration to the [facility].2.Look for an invitation email from [facility].3.Open the email and access the invitation link: Accept Invitation to [facility]4.Fill in the required de los santos to create your account. Sign into [email or web address] with your username and password that you [...] you will allow to register on the [facility] Patient Portal for access to your information. You can also access the [facility] Patient Portal on the [employer]. Simply click on "Health Records" under "[facility]" and then click on the [facility] logo. HOW TO SAFELY DISPOSE OF PRESCRIPTION MEDICATIONS Please use one of the following methods to safely dispose of your unused medications. 1.Use a drug disposal kit: the drug disposal pouch allows you to safely discard your old and unuseddrugs. Ask your nurse to give you one when you are discharged.2.Visit a local take-back location: Many local pharmacies and police departments have programs that collect old and unwanted prescriptiondrugs. Call your local pharmacy or go to http://Qonf.farmflo/6D6Ho2b to find one close to you.3.Make use of household items: Use cat litter or old coffee grounds to dispose medications if other options arenot available. Mix your drugs with these household products, seal them in an airtight container andthrow it into the garbage. Call [facility]: [phone] to be sure your drugs can be [...] drowsiness, such as benzodiazepines, also known as benzos,including diazepam and alprazolam, muscle relaxants or sleep aids. Never sell or share prescriptionopioids. This is illegal. Store opioids in a secure place and out of reach of others (including children, family, friends and visitors). The last page(s) of this document has been signed and retained as a CHART COPY Signatures Patient Education Materials Atrial Fibrillation Medication Leaflets My discharge plan and instructions have been reviewed and explained to me and ILYNN MARCIA V understand my current condition and have read and understand these discharge instructions. I have received a written copy of the plan/instructions. If I have questions, I am aware that I should contact my doctor. 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 MICRO - Microbiology PROCEDURE: Urine Culture [*1] SOURCE: Urine, Clean Catch BODY SITE: COLLECTED DATE/TIME: 11/07/2023 11:53 EDT RECEIVED DATE/TIME: 11/07/2023 20:01 EDT START DATE/TIME: 11/07/2023 20:01 EDT FREE TEXT SOURCE: FINAL REPORTS Final Report [] Verified Date/Time/Personnel: 11/09/2023 07:28 EDT <10,000 cfu/ml. No Significant growth. Sensitivity not indicated. PRELIMINARY REPORTS Preliminary Report [] Verified Date/Time/Personnel: 11/08/2023 08:57 EDT No growth to date Performing Locations *1: This test was performed at: [facility], [address] [place] [address], [facility] , [facility] [place] hospital ([place])08-13-2023 Note ORIGINAL EXAMINATION: WHOLE BODY BONE SCAN08/13/2023 2:33 pm TECHNIQUE: The patient received an intravenous injection of 30.9 millicuries of Tc-99m MDP. Early phase images of the thoracolumbar spine were obtained. After approximately 3h, multiple delayed static planar images were then acquired. Delayed Anterior and posterior planar images of the skeleton from skull vertex to feet were also obtained. COMPARISON: 08/06/2023 MRI lumbar spine HISTORY: ORDERING SYSTEM PROVIDED HISTORY: Reason for Exam: LUMBAR SPINE X RAY W WEDGE COMPRESSION FRACTURE UNDETERMINED AGE AT T 12 T-12 COMPRESSION FX SEEN ON MRI FINDINGS: Early phase images demonstrate no abnormal activity to suggest soft tissue inflammation or acuity. Delayed osseous phase images demonstrate no suspicious linear activity at the T12 level to correspond with known T12 compression deformity. There are areas of uptake in an arthritic pattern involving the shoulders and knees. Activity in the bilateral kidneys and the urinary bladder represent normal route of radiopharmaceutical excretion. The soft tissue distribution of radiotracer activity is within normal limits. IMPRESSION: No findings to conclude acute or subacute T12 compression deformity. Interpreted by: Daniel Meeks DO Preliminary Report By: Daniel Meeks DO Electronically signed By Daniel Meeks DO Dictated Date: 08/13/2023 4:25:22 PM Prelim Date: 08/13/2023 4:28:18 PM Sign Date: 08/13/2023 4:28:18 PM Ordering Provider: [facility]03-25-2024 Note ORIGINAL EXAMINATION: MRI OF THE LUMBAR SPINE WITHOUT CONTRAST, 08/06/2023 1:12 pm TECHNIQUE: Multiplanar multisequence MRI of the lumbar spine was performed without the administration of intravenous contrast. COMPARISON: CT thorax with contrast 11/04/2021. 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 Overall lumbar lordosis is maintained. Approximately 3 mm rim of retrolisthesis of L2 on L3 and 7 mm of retrolisthesis L3 on L4 is appreciated. Minimal retrolisthesis of L4 on L5. Grade 1 anterolisthesis of L5 on S1. There is redemonstration of a T12 compression deformity, visualized on prior CT chest 11/04/2021. Changes are noted status post L4-5 posterior decompression. SPINAL CORD: The conus terminates normally at the level of L1. No abnormal signal is appreciated. The cauda equina is unremarkable. SOFT TISSUES: Prevertebral and paraspinal soft tissues are unremarkable. T12-L1: Asymmetric left disc protrusion resulting in mild effacement of the thecal sac. The bilateral neural foramina are patent. L1-L2: Mild diffuse disc bulge resulting in mild narrowing of the spinal canal. Ligamentum flavum hypertrophy. No neural foraminal stenosis bilaterally. L2-L3: Minimal bulge and posterior disc uncovering is appreciated with ligamentum flavum hypertrophy resulting in moderate narrowing of the spinal canal. Mild facet arthropathy bilaterally resulting and right mild neural foraminal stenosis. L3-L4: Listhesis and posterior disc osteophyte complex are appreciated with moderate narrowing of the spinal canal. Facet hypertrophy is appreciated with severe bilateral neural foraminal stenoses. L4-L5: A diffuse disc bulge is appreciated without significant narrowing of the thecal sac. Facet hypertrophy is appreciated with severe bilateral neural foraminal stenoses. L5-S1: Posterior disc uncovering is appreciated without significant narrowing of the thecal sac. Moderate to severe bilateral neural foraminal stenoses are appreciated in the setting of facet hypertrophy. IMPRESSION: 1. Stable chronic L1 compression deformity, unchanged since at least 11/04/2021. 2. Advanced multilevel degenerative changes and listhesis without significant narrowing of the thecal sac or cauda equina compression. Severe neural foraminal stenoses at L3-4 and L4-5 bilaterally. Moderate to severe at L5-S1. Interpreted by: Eduardo Christina Preliminary Report By: Eduardo Christina Electronically signed By Eduardo Christina Dictated Date: 08/06/2023 3:41:04 PM Prelim Date: 08/06/2023 3:52:03 PM Sign Date: 08/06/2023 3:52:03 PM Ordering Provider: [facility]08-21-2023 Note ORIGINAL FROM: [facility] [address] [place], [place] [address] PROCEDURE FOR: RAYMON Blum [facility] [place] [address] Home: PID#: [id number] Exam#: [id number] : 1950 Age: 72 TO: FOREIGN ELLINGTON [place] [address] Fax: NO FAX EXAMINATION: SCREENING DIGITAL BILATERAL [...] Date: 01/01/2023 11:05:14 AM Ordering Provider: FOREIGN ELLINGTON Picker Packer: SAPNA DE LA CRUZ RT(R)(M)(CT) PALLIATIVE SENIOR NP letter sent: Normal BI-RADS 1 and 2 Mammogram BI-RADS: 2 [facility]12-26-2022 History of Present illness Narrative* This is a patient I have seen in the past for her hypothyroidism. 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 She is referred today for recently diagnosed type 2 diabetes. Past medical history of A-fib sleep apnea COPD spinal stenosis, OA. * a1c 7.7 at pcp about 2 months ago * feels fine * vision stable. * lives c her * creat 1.o ... 2021 * has had some DM nutr instruction in past * wt. stable * eye [facility] * fam hx mother c DM at late stages of life * has podia. dr perez * ros: pos for polydipsia . some fatigue. no blurry vision * has had recent ortho gluctd. shots. (may have raised sugars some) * remains on coumadin * bowels...ok no diarrhea * feet ok [employer] Work Phone: 1(441) 554-797012-25-2022 History of Present illness Narrative* a1c 7.7 at pcp about 2 months ago * feels fine * vision stable. * creat 1.o 2021 * has had some DM nutr instruction * wt. stable * eye [facility] * [facility] hx mother c DM at late stages of life * has podia. dr perez * ros pos for polydipsia . some fatigue. no blurry vision * has had recent ortho gluctd. shots. * remains on coumadin * bowels...ok no diarrhea * feet ok [employer] Work Phone: 1(872) 201-132511-30-2022 HCoV 229E RNA VICKI+non-probe Ql (Nph)Not Detected *NA* (04/12/22 5:51 PM)AH Auto Viro/Sero [id number] Hospital Discharge instructions Patient Education 12/02/2021 10:59:17 [...] the pain will often stop. But it maycome back as the stone continues to pass [...] another one in the future. There are 4types of kidney stones. Eighty percent are calcium stones mostly calcium oxalate but also some withcalcium phosphate. The other 3 types include uric [...] stones dissolve into sand-like particles and pass rightthrough the strainer. In that case, you won [...] disease, talk with your healthcare provider before takingthese medicines. Also talk with your provider if you've had a stomach ulcer or GI bleeding. Preventing stones Each year for the next 5 to 7 years, you are at risk that a new stone will form. Your risk is a 50%chance over this time period. The risk is [...] advice until the cause of your stone isfound. Things that help: The most important thing [...] for stones by binding the minerals in thestomach and intestines before they can reach the [...] your diet may lower your risk for uricacid stones. Avoid excess sugar (sucrose) and fructose [...] for 8 hours and increasing bladder pressure 5917-1787 [employer]. [address] [place] [address]. All rights reserved. This information is not intended as a substitute for professional medical care. Always follow yourhealthcare professional's instructions. Follow Up Care 12/02/2021 08:51:57 With:Your urologist Address: When:2-4 days With:Go to emergency room if symptoms worsen Address:Unknown When:2-4 days [facility] 07-22-2022 Note Discharge Instructions Thank you for allowing [facility] to assist you with your healthcare needs. The following is importantdischarge information regarding your hospital visit. Diagnosis from [...] and or supplements as they may interact withyour home medications. What How Much When Why Instructions Last Dose New acetaminophen-hydrocodone (Ramona 325- 5 mg oral tablet) 1 tab(s) [...] the pain will often stop. But it maycome back as the stone continues to pass [...] another one in the future. There are 4types of kidney stones. Eighty percent are calcium stones mostly calcium oxalate but also some withcalcium phosphate. The other 3 types include uric [...] stones dissolve into sand-like particles and pass rightthrough the strainer. In that case, you won [...] disease, talk with your healthcare provider before takingthese medicines. Also talk with your provider if you've had a stomach ulcer or GI bleeding. Preventing stones Each year for the next 5 to 7 years, you are at risk that a new stone will form. Your risk is a 50%chance over this time period. The risk is [...] advice until the cause of your stone isfound. Things that help: The most important thing [...] for stones by binding the minerals in thestomach and intestines before they can reach the [...] your diet may lower your risk for uricacid stones. Avoid excess sugar (sucrose) and fructose [...] for 8 hours and increasing bladder pressure 6920-2633 [employer]. [address] [place] [address]. All rights reserved. This information is not intended as a substitute for professional medical care. Always follow yourhealthcare professional's instructions. Additional Information VACCINATE! IT SAVES LIVES! Members of the community who have not yet received the COVID-19 vaccine and would like to receive it can visit one of [facility] vaccine clinics. There are many vaccine clinic locations within the [facility]. For locations and available times, please visit [email or web address]. It is important to note that some COVID mobile vaccine clinics are held outdoors and may be canceled in rainy orstormy conditions. To learn more about pediatric vaccinations (ages 5-11), we invite you to visit the [facility] webpage. https://www.[email or web address]/pages/3905-Kbatf-Paukfzhdkni-Yvlrfecwus-Gklst-Ntw stions.htmlTo learn more about the COVID-19 vaccine, we invite you to visit the [facility] website for a list of frequently asked questions. [email or web address]-qzl-Ehtugoje/mdxqm-Zfvzawm-Vvgbbgsyfr _Asked-Questions.pdf [facility] Patient Portal Access Instructions: Stay connected with your healthcare team and access your personal medical information anytime with the [facility] Patient Portal. If you would like a full copy of your medical records please contact the [facility] Medical Records Department Sunday through Sunday between 8a.m. and 4:30p.m. Please follow the directions below to access the portal: 1.Access the email account you provided upon registration to the hospital.2.Look for an invitation email from [facility].3.Open the email and access the invitation link: Accept Invitation to [facility]4.Fill in the required de los santos to create your account. Sign into [email or web address] with your username and password that you [...] you will allow to register on the [facility] Patient Portal for access to your information. You can also access the [facility] Patient [facility] on the [employer]. Simply click on "Health Records" under "[facility]" and then click on the [facility] logo. HOW TO SAFELY DISPOSE OF PRESCRIPTION MEDICATIONS Please use one of the following methods to safely dispose of your unused medications. 1.Use a drug disposal kit: the drug disposal pouch allows you to safely discard your old and unuseddrugs. Ask your nurse to give you one when you are discharged.2.Visit a local take-back location: Many local pharmacies and police departments have programs that collect old and unwanted prescriptiondrugs. Call your local pharmacy or go to http://Qonf.farmflo/8Y1Ir9g to find one close to you.3.Make use of household items: Use cat litter or old coffee grounds to dispose medications if other options arenot available. Mix your drugs with these household products, seal them in an airtight container andthrow it into the garbage. Call [facility]: [phone] to be sure your drugs can be [...] drowsiness, such as benzodiazepines, also known as benzos,including diazepam and alprazolam, muscle relaxants or sleep aids. Never sell or share prescriptionopioids. This is illegal. Store opioids in a secure place and out of reach of others (including children, family, friends and visitors). The last page(s) of this document has been signed and retained as a CHART COPY Signatures Patient Education Materials Kidney Stone w/ Colic Medication Leaflets My discharge plan and instructions have been reviewed and explained to me and I,RAYMON BAH V understand my current condition and have read and understand these discharge instructions. I have received a written copy of the plan/instructions. If I have questions, I am aware that I should contact my doctor. 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 Signature: Date/Time: Relationship to Patient: Witness Name/Signature: Date/Time: [facility]07-22-2022 Note ORIGINAL EXAMINATION: CT OF THE ABDOMEN [...] Sign Date: 12/02/2021 10:46:03 AM Ordering Provider: [facility]07-22-2022 Note ORIGINAL EXAMINATION: CT OF THE ABDOMEN [...] Sign Date: 12/02/2021 10:46:03 AM Ordering Provider: [facility]07-21-2022 Note ORIGINAL FROM: [place] [address] [place], [place] [address] [place]: [place] [address] Home: PID#: [id number] Exam#: [id number] : 1950 Age: 71 TO: FOREIGN ELLINGTON DO [address] [place] [id number] Fax: NO FAX EXAMINATION: ULTRASOUND OF THE [...] Date: 12/01/2021 5:54:36 PM Ordering Provider: FOREIGN ELLINGTON CLINICAL: MAMMOGRAPHIC DENSITY RIGHT BREAST. Picker Packer: ROSELIA GAINES [facility] letter sent: Probably Benign BI-RADS 3 Ultrasound BI-RADS: 3 Probably benign [facility]07-21-2022 Note ORIGINAL FROM: [address] [address] PROCEDURE [place]: [place] [address] Home: PID#: [id number] Exam#: [id number] : 1950 Age: 71 TO: FOREIGN ELLINGTON DO [address] [place] [id number] Fax: NO FAX EXAMINATION: ULTRASOUND OF THE [...] Date: 12/01/2021 5:54:36 PM Ordering Provider: FOREIGN ELLINGTON CLINICAL: MAMMOGRAPHIC DENSITY RIGHT BREAST. Picker Packer: ROSELIA GAINES RDMS letter sent: Probably Benign BI-RADS 3 Ultrasound BI[facility]RADS: 3 [facility] Discharge instructions Patient Education 07/31/2021 18:47:30 [...] the pain will often stop. But it maycome back as the stone continues to pass [...] another one in the future. There are 4types of kidney stones. Eighty percent are calcium stones mostly calcium oxalate but also some withcalcium phosphate. The other 3 types include uric [...] stones dissolve into sand-like particles and pass rightthrough the strainer. In that case, you won [...] disease, talk with your healthcare provider before takingthese medicines. Also talk with your provider if you've had a stomach ulcer or GI bleeding. Preventing stones Each year for the next 5 to 7 years, you are at risk that a new stone will form. Your risk is a 50%chance over this time period. The risk is [...] advice until the cause of your stone isfound. Things that help: The most important thing [...] for stones by binding the minerals in thestomach and intestines before they can reach the [...] your diet may lower your risk for uricacid stones. Avoid excess sugar (sucrose) and fructose [...] for 8 hours and increasing bladder pressure 2841-4716 [employer]. [address] [place] [address]. All rights reserved. This information is not intended as a substitute for professional medical care. Always follow yourhealthcare professional's instructions. Follow Up Care 07/31/2021 16:16:54 With:FOREIGN ELLINGTON DO Address: [address] [place] [address] [place] [address] [phone] When:2-4 days [facility] 02-25-2022 Hospital Discharge instructions Patient Education 07/08/2021 14:42:10 Vertigo, Unspecified Vertigo (Unknown Cause) In addition to helping with hearing, the inner ear is part of the balance center of your body. Problems with the inner ear can a false feeling of motion. This is called vertigo. Often, it feels as ifyou or the room is spinning. A vertigo attack may cause sudden nausea, vomiting and heavy sweating.Severe vertigo causes a loss of balance and [...] nausea, vomiting, and dizziness, you may use [id number] motion sickness pills. Ask your pharmacist for [...] speech or vision Loss of consciousness Seizure [id number] [employer]. [address] [place] [address]. All rights reserved. This information is not intended as a substitute for professional medical care. Always [facility] instructions. 07/08/2021 14:42:02 Kidney Stone w/ [...] the pain will often stop. But it maycome back as the stone continues to pass [...] another one in the future. There are 4types of kidney stones. Eighty percent are calcium stones mostly calcium oxalate but also some withcalcium phosphate. The other 3 types include uric [...] stones dissolve into sand-like particles and pass rightthrough the strainer. In that case, you won [...] disease, talk with your healthcare provider before takingthese medicines. Also talk with your provider if you've had a stomach ulcer or GI bleeding. Preventing stones Each year for the next 5 to 7 years, you are at risk that a new stone will form. Your risk is a 50%chance over this time period. The risk is [...] advice until the cause of your stone isfound. Things that help: The most important thing [...] for stones by binding the minerals in thestomach and intestines before they can reach the [...] your diet may lower your risk for uricacid stones. Avoid excess sugar (sucrose) and fructose [...] for 8 hours and increasing bladder pressure [id number] [employer]. [address] [place] [address]. All rights reserved. This information is not intended as a substitute for professional medical care. Always follow yourhealthcare professional's instructions. Follow Up Care 07/08/2021 10:13:24 With:ÁNGEL HENDRICKSON MD Address: When:2-4 days [facility] Discharge summary Author Yossi Burnette [facility] Note Date/Time December 23, 2024 4: 31pm [facility] Medical Records Department [address] [place] [address] Instructions for Home/Discharge Instructions 12/23/24 1630 MR#: [id number] Acct: [id number] Name: RAYMON BAH Rep #:[id number] 74 From: Yossi shelton DO PCP: Dr. Foreign Ellington DO Status:ADM ELIDA Discharge Instructions DC O2, CPAP, BIPAP needs Home O2 Discharge instructions: No Follow Up Care Test Results: Test results from this visit will be discussed in further detail at your follow- up appointment, if applicable. Discharge Plan Admission Admit Date/Time: 12/22/24 12:20 Primary Reason for Your Visit: Right knee replacement Attending Provider: Yossi Burnette Primary Care Provider: Foreign Ellington Consulting Providers: Yossi Riley Instructions Additional Instructions / Restrictions: Follow preprinted instructions from Dr. Burnette's office. Recheck INR lab work needs checked 12/24 Discharge Orders/Prescriptions Prescriptions: New acetaminophen 500 mg Tablet 1,000 mg PO Q8 30 Days Qty: 180 0RF oxycodone 5 mg Tablet 5 - 10 mg PO Q4H PRN PRN (Reason: Pain Score 4-10) 7 Days Qty: 42 0RF Continued warfarin 2 mg tablet 6 mg PO DAILY Patient Comments: TAKE 3 TABS DAILY OR DIRECTED PER [facility] Rx Instructions: STOP 4 DAYS PRIOR TO OR calcium citrate 500 mg Tablet, Effervescent 500 mg PO DAILY furosemide 20 mg tablet 20 mg PO DAILY escitalopram oxalate 10 mg tablet 10 mg PO DAILY Patient Comments: TAKE 1 TABLET BY MOUTH EVERY DAY rosuvastatin 10 mg tablet 10 mg PO DAILY cholecalciferol (vitamin D3) 50 mcg (2,000 unit) tablet 50 mcg PO DAILY Patient Comments: TAKE 1 TABLET BY MOUTH EVERY DAY fluticasone furoate [Arnuity Ellipta] 100 mcg/actuation blister with device 1 inh inhalation DAILY levothyroxine 75 mcg tablet 75 mcg PO DAILY diltiazem HCl [Matzim LA] 300 mg tablet extended release 24 hr 300 mg PO DAILY Rybelsus 7 mg tablet 7 mg PO DAILY Patient Comments: LAST DOSE PRIOR TO OR IS 12/19/24 docusate sodium 100 mg capsule 100 mg PO DAILY escitalopram oxalate 5 mg tablet 5 mg PO DAILY cyanocobalamin (vitamin B-12) [Vitamin B-12] 1,000 mcg tablet extended release 2,000 mcg PO DAILY Referrals / Follow Up: Foreign Ellington DO [Primary Care Provider] - Yossi Burnette DO [Med Staff - Active Staff] - Disposition Disposition (needs filled in before D/C Order can be placed): Home, Self Care 12/23/24 1631<Electronically signed by Yossi Burnette DO>Yossi Burnette DO CC: Dr. Foreign Ellington DO; Dr. Yossi Riley MD ~ Signed [facility] Work Phone: Evaluation + Plan note Future Appointments Appointment Date:04/29/2021 11:30:00 AM Scheduled Provider:FOREIGN ELLINGTON DO Location:[facility] Appointment Type:PC OV Future Scheduled Tests Radiology* XR Chest 2 Views (PA & Lateral) 09/21/20 [facility] Evaluation + Plan note Future Appointments Appointment Date:04/28/2021 10:30:00 AM Scheduled Provider:FOREIGN ELLINGTON DO Location:[facility] Appointment Type:PC OV Appointment Date:06/28/2021 10:30:00 AM Scheduled Provider:FOREIGN ELLINGTON DO Location:[facility] Appointment Type:PC OV Future Scheduled Tests Laboratory* Creatinine Random Urine 03/24/21 Radiology* XR Chest 2 Views (PA & Lateral) 09/21/20 [facility] Evaluation + Plan note Future Appointments Appointment Date:06/28/2021 10:30:00 AM Scheduled Provider:FOREIGN ELLINGTON DO Location:[facility] Appointment Type:PC OV Appointment Date:07/26/2021 11:00:00 AM Scheduled Provider:FOREIGN ELLINGTON DO Location:[facility] Appointment Type:PC OV Future Scheduled Tests Laboratory* Creatinine Random Urine 03/24/21 Radiology* XR Chest 2 Views (PA & Lateral) 09/21/20 [facility] Evaluation + Plan note Future Appointments Appointment Date:07/26/2021 11:00:00 AM Scheduled Provider:FOREIGN ELLINGTON DO Location:[facility] Appointment Type:PC OV Future Scheduled Tests Laboratory* Creatinine Random Urine 03/24/21 Radiology* XR Chest 2 Views (PA & Lateral) 09/21/20 [facility] Evaluation + Plan note Future Appointments Appointment Date:07/18/2021 11:00:00 AM Scheduled Provider: Location:[facility] Appointment Type:DB Diabetic Individual Visit Appointment Date:07/19/2021 02:30:00 PM Scheduled Provider: [facility] Appointment Type:NUT Diet Visit Individual Appointment Date:07/26/2021 11:00:00 AM Scheduled Provider:FOREIGN ELLINGTON DO Location:[facility] Appointment Type:PC OV Future Scheduled Tests Laboratory* Creatinine Random Urine 03/24/21 Radiology* XR Chest 2 Views (PA & Lateral) 07/05/21 * XR Chest 2 Views (PA & Lateral) 09/21/20 [facility] evaluation + Plan note Future Appointments Appointment Date:07/26/2021 11:00:00 AM Scheduled Provider:FOREIGN ELLINGTON DO Location:[facility] Appointment Type:PC OV Appointment Date:08/22/2021 11:30:00 AM Scheduled Provider: Location:[facility] Appointment Type:NUT Diet Visit Individual Appointment Date:01/23/2022 11:00:00 AM Scheduled Provider: Location:[facility] Appointment Type:DB Diabetic Individual Visit Future Scheduled Tests Laboratory* Creatinine Random Urine 03/24/21 Radiology* XR Chest 2 Views (PA & Lateral) 07/05/21 * XR Chest 2 Views (PA & Lateral) 09/21/20 [facility] Evaluation + Plan note Future Appointments Appointment Date:08/22/2021 11:30:00 AM Scheduled Provider: Location:[facility] Appointment Type:NUT Diet Visit Individual Appointment Date:11/01/2021 10:00:00 AM Scheduled Provider:FOREIGN ELLINGTON DO Location:[facility] Appointment Type: Wellness Medicare Appointment Date:01/23/2022 11:00:00 AM Scheduled Provider: Location:[facility] Appointment Type:DB Diabetic Individual Visit Future Scheduled Tests Laboratory* Creatinine Random Urine 03/24/21 Radiology* XR Chest 2 Views (PA & Lateral) 07/05/21 * XR Chest 2 Views (PA & Lateral) 09/21/20 [facility] Evaluation + Plan note Future Appointments Appointment Date:09/26/2021 11:30:00 AM Scheduled Provider: [facility] Appointment Type:NUT Diet Visit Individual Appointment Date:11/01/2021 10:00:00 AM Scheduled Provider:FOREIGN ELLINGTON DO Location:[facility] Appointment Type: Wellness Medicare Appointment Date:01/23/2022 11:00:00 AM Scheduled Provider: Location:[facility] Appointment Type:DB Diabetic Individual Visit Future Scheduled Tests Laboratory* Creatinine Random Urine 03/24/21 Radiology* XR Chest 2 Views (PA & Lateral) 07/05/21 * XR Chest 2 Views (PA & Lateral) 09/21/20 [facility] evaluation + Plan note Future Appointments Appointment Date:11/01/2021 10:00:00 AM Scheduled Provider:FOREIGN ELLINGTON DO Location:[facility] Appointment Type:PC Wellness Medicare Appointment Date:01/23/2022 11:00:00 AM Scheduled Provider: Location:[facility] Appointment Type:DB Diabetic Individual Visit Future Scheduled Tests Laboratory* Creatinine Random Urine 03/24/21 Radiology* XR Chest 2 Views (PA & Lateral) 07/05/21 [facility] evaluation + Plan note Future Appointments Appointment Date:11/11/2021 10:00:00 AM Scheduled Provider: Location:[facility] Appointment Type:PT Outpatient Evaluation Appointment Date:12/16/2021 10:00:00 AM Scheduled Provider:FOREIGN ELLINGTON DO Location:[facility] Appointment Type:PC OV Appointment Date:01/23/2022 11:00:00 AM Scheduled Provider: Location:[facility] Appointment Type:DB Diabetic Individual Visit Future Scheduled Tests Laboratory* Creatinine Random Urine 03/24/21 * Lipid Profile 11/01/21 * Vitamin D Level 11/01/21 Radiology* MA Mammo Screening Bilateral w/ Nahid 11/01/21 * XR Chest 2 Views (PA & Lateral) 07/05/21 [facility] [employer] + Plan note Future Appointments Appointment Date:11/11/2021 10:00:00 AM Scheduled Provider: Location:[facility] Appointment Type:PT Outpatient Evaluation Appointment Date:11/25/2021 10:30:00 AM Scheduled Provider: Location:[facility] Appointment Type:MA Mammogram Screening Bilateral w/ Nahid Appointment Date:12/16/2021 10:00:00 AM Scheduled Provider:FOREIGN ELLINGTON DO Location:[facility] Appointment Type:PC OV Appointment Date:01/23/2022 11:00:00 AM Scheduled Provider: Location:[facility] Appointment Type:DB Diabetic Individual Visit Future Scheduled Tests Laboratory* Creatinine Random Urine 03/24/21 * Lipid Profile 11/01/21 * Vitamin D Level 11/01/21 Radiology* MA Mammo Screening Bilateral w/ Nahid 11/25/21 * XR Chest 2 Views (PA & Lateral) 07/05/21 [facility] Evaluation + Plan note Future Appointments Appointment Date:11/28/2021 10:00:00 AM Scheduled Provider: Location:[facility] Appointment Type:PT Treatment - [place] Appointment Date:12/01/2021 10:00:00 AM Scheduled Provider: Location:[facility] Appointment Type:PT Treatment - [place] Appointment Date:12/06/2021 10:00:00 AM Scheduled Provider: Location:[facility] Appointment Type:PT Treatment - [place] Appointment Date:12/09/2021 10:00:00 AM Scheduled Provider: Location:[facility] Appointment Type:PT Treatment - [place] Appointment Date:12/12/2021 10:00:00 AM Scheduled Provider: Location:[facility] Appointment Type:PT Treatment - [place] Appointment Date:12/16/2021 10:00:00 AM Scheduled Provider:FOREIGN ELLINGTON DO Location:[facility] Appointment Type:PC OV Appointment Date:01/23/2022 11:00:00 AM Scheduled Provider: Location:[facility] Appointment Type:DB Diabetic Individual Visit Future Scheduled Tests Laboratory* Creatinine Random Urine 03/24/21 * Lipid Profile 11/01/21 * Vitamin D Level 11/01/21 Radiology* XR Chest 2 Views (PA & Lateral) 07/05/21 [facility] Evaluation + Plan note Future Appointments Appointment Date:12/06/2021 10:00:00 AM Scheduled Provider: Location:[facility] Appointment Type:PT Treatment - [place] Appointment Date:12/09/2021 10:00:00 AM Scheduled Provider: Location:[facility] Appointment Type:PT Treatment - [place] Appointment Date:12/12/2021 10:00:00 AM Scheduled Provider: Location:[facility] Appointment Type:PT Treatment - [place] Appointment Date:12/16/2021 10:00:00 AM Scheduled Provider:FOREIGN ELLINGTON DO Location:[facility] Appointment Type:PC OV Appointment Date:01/23/2022 11:00:00 AM Scheduled Provider: Location:[facility] Appointment Type:DB Diabetic Individual Visit Future Scheduled Tests Laboratory* Creatinine Random Urine 03/24/21 * Lipid Profile 11/01/21 * Vitamin D Level 11/01/21 [facility] Evaluation + Plan note Future Appointments Appointment Date:12/07/2021 01:30:00 PM Scheduled Provider: Location:[facility] Appointment Type:PT Treatment - [place] Appointment Date:12/09/2021 10:00:00 AM Scheduled Provider: Location:[facility] Appointment Type:PT Treatment - [place] Appointment Date:12/12/2021 10:00:00 AM Scheduled Provider: Location:[facility] Appointment Type:PT Treatment - [place] Appointment Date:12/16/2021 10:00:00 AM Scheduled Provider:FOREIGN ELLINGTON DO Location:[facility] Appointment Type:PC OV Appointment Date:01/23/2022 11:00:00 AM Scheduled Provider: Location:[facility] Appointment Type:DB Diabetic Individual Visit Future Scheduled Tests Laboratory* Creatinine Random Urine 03/24/21 * Lipid Profile 11/01/21 * Vitamin D Level 11/01/21 [facility] Evaluation + Plan note Future Appointments Appointment Date:12/16/2021 10:00:00 AM Scheduled Provider:FOREIGN ELLINGTON DO Location:[facility] Appointment Type:PC OV Appointment Date:01/23/2022 11:00:00 AM Scheduled Provider: Location:[facility] Appointment Type:DB Diabetic Individual Visit Future Scheduled Tests Laboratory* Creatinine Random Urine 03/24/21 [facility] Evaluation + Plan note Future Appointments Appointment Date:03/20/2022 01:00:00 PM Scheduled Provider: Location:[facility] Appointment Type:BD Bone Density DEXA Axial Skeleton Appointment Date:03/20/2022 01:30:00 PM Scheduled Provider: Location:[facility] Appointment Type:US Soft Tissue Mass of Abd/Mid Back Appointment Date:06/01/2022 10:00:00 AM Scheduled Provider:FOREIGN ELLINGTON DO Location:[facility] Appointment Type:PC OV Follow Up Appointment Date:07/24/2022 10:00:00 AM Scheduled Provider: Location:[facility] Appointment Type:DB Diabetic Individual Visit Future Scheduled Tests Laboratory* Creatinine Random Urine 03/24/21 Radiology* US Soft Tissue Mass of Abd/Mid Back 03/20/22 * BD Bone Density DEXA Axial Skeleton 03/20/22 [facility] evaluation + Plan note Future Appointments Appointment Date:06/01/2022 10:00:00 AM Scheduled Provider:FOREIGN ELLINGTON DO Location:[facility] Appointment Type:PC OV Follow Up Appointment Date:07/24/2022 10:00:00 AM Scheduled Provider: Location:[facility] Appointment Type:DB Diabetic Individual Visit Future Scheduled Tests Laboratory* Creatinine Random Urine 03/24/21 [facility] [employer] Plan note Future Appointments Appointment Date:06/01/2022 10:00:00 AM Scheduled Provider:FOREIGN ELLINGTON DO Location:[facility] Appointment Type:PC OV Follow Up Appointment Date:07/24/2022 10:00:00 AM Scheduled Provider: Location:[facility] Appointment Type:DB Diabetic Individual Visit [facility] Evaluation + Plan note Future Appointments Appointment Date:06/08/2022 09:00:00 AM Scheduled Provider: Location:[facility] Appointment Type:MA Mammogram Diagnostic Right w/ Nahid Appointment Date:06/08/2022 10:00:00 AM Scheduled Provider: Location:[facility] Appointment Type:US Breast Right Complete Appointment Date:07/24/2022 10:00:00 AM Scheduled Provider: Location:[facility] Appointment Type:DB Diabetic Individual Visit Appointment Date:08/31/2022 10:00:00 AM Scheduled Provider:FOREIGN ELLINGTON DO Location:[facility] Appointment Type:PC OV Future Scheduled Tests Radiology* MA Mammo Diagnostic Right w/ Nahid 06/08/22 * US Breast Right Complete 06/08/22 [facility] Evaluation + Plan note Future Appointments Appointment Date:07/24/2022 10:00:00 AM Scheduled Provider: Location:[facility] Appointment Type:DB Diabetic Individual Visit Appointment Date:08/31/2022 10:00:00 AM Scheduled Provider:FOREIGN ELLINGTON DO Location:[facility] Appointment Type:[facility] Evaluation + Plan note Future Appointments Appointment Date:08/31/2022 10:00:00 AM Scheduled Provider:FOREIGN ELLINGTON DO Location:[facility] Appointment Type:[facility] Evaluation + Plan note Future Appointments Appointment Date:08/31/2022 10:30:00 AM Scheduled Provider:FOREIGN ELLINGTON DO Location:[facility] Appointment Type:[facility] Evaluation + Plan note Future Appointments Appointment Date:09/19/2022 10:00:00 AM Scheduled Provider:CHARLOTTE RIGGS MD Location: [facility] Appointment Type:[facility] Appointment Date:12/08/2022 10:00:00 AM Scheduled Provider:FOREIGN ELLINGTON DO Location:[facility] Appointment Type:[facility] Evaluation + Plan note Future Appointments Appointment Date:12/28/2022 09:00:00 AM Scheduled Provider: Location:[facility] Appointment Type:NUT Diet Visit Individual Appointment Date:03/01/2023 10:00:00 AM Scheduled Provider: Location:[facility] Appointment Type:DB Diabetic Individual Visit (AOH) Appointment Date:03/16/2023 09:00:00 AM Scheduled Provider:FOREIGN ELLINGTON DO Location:[facility] Appointment Type:PC Wellness Medicare Future Scheduled Tests Laboratory* Thyroid Stimulating Hormone 01/22/23 * Free T4 01/22/23 Radiology* MA Mammo Screening Bilateral w/ Nahid 12/08/22 [facility] Evaluation + Plan note Future Appointments Appointment Date:01/01/2023 09:45:00 AM Scheduled Provider: Location:[facility] Appointment Type:MA Mammogram Screening Bilateral w/ Nahid Appointment Date:03/01/2023 10:00:00 AM Scheduled Provider: Location:[facility] Appointment Type:DB Diabetic Individual Visit (AOH) Appointment Date:03/16/2023 09:00:00 AM Scheduled Provider:FOREIGN ELLINGTON DO Location:[facility] Appointment Type:PC Wellness Medicare Future Scheduled Tests Laboratory* Thyroid Stimulating Hormone 01/22/23 * Free T4 01/22/23 Radiology* MA Mammo Screening Bilateral w/ Nahid 01/01/23 [facility] Evaluation + Plan note Future Appointments Appointment Date:01/25/2023 09:00:00 AM Scheduled Provider: Location:[facility] Appointment Type:NUT Diet Visit Individual Appointment Date:03/01/2023 10:00:00 AM Scheduled Provider: Location:[facility] Appointment Type:DB Diabetic Individual Visit (AO) Appointment Date:03/16/2023 09:00:00 AM Scheduled Provider:FOREIGN ELLINGTON DO Location:[facility] Appointment Type:PC Wellness Medicare Future Scheduled Tests Laboratory* Thyroid Stimulating Hormone 01/22/23 * Free T4 01/22/23 [facility] Evaluation + Plan note Future Appointments Appointment Date:01/31/2023 10:00:00 AM Scheduled Provider: Location:[facility] Appointment Type:PT Outpatient Evaluation Appointment Date:02/23/2023 09:00:00 AM Scheduled Provider: Location:[facility] Appointment Type:NUT Diet Visit Individual Appointment Date:03/01/2023 10:00:00 AM Scheduled Provider: Location:[facility] Appointment Type:DB Diabetic Individual Visit (AO) Appointment Date:03/16/2023 09:00:00 AM Scheduled Provider:FOREIGN ELLINGTON DO Location:[facility] Appointment Type:PC Wellness Medicare Future Scheduled Tests Laboratory* Thyroid Stimulating Hormone 01/22/23 * Free T4 01/22/23 [facility] Evaluation + Plan note Future Appointments Appointment Date:03/02/2023 08:30:00 AM Scheduled Provider: Location:[facility] Appointment Type:DB Diabetic Individual Visit (AOH) Appointment Date:03/09/2023 08:00:00 AM Scheduled Provider: Location:[facility] Appointment Type:NUT Diet Visit Individual Appointment Date:03/13/2023 02:00:00 PM Scheduled Provider:LUPIS FERGUSON MD Location:[facility] Appointment Type:[facility] Appointment Date:03/16/2023 09:00:00 AM Scheduled Provider:FOREIGN ELLINGTON DO Location:[facility] Appointment Type:PC Wellness Medicare Future Scheduled Tests Laboratory* Thyroid Stimulating Hormone 01/22/23 * Free T4 01/22/23 [facility] Evaluation + Plan note Future Appointments Appointment Date:03/30/2023 09:00:00 AM Scheduled Provider: Location:[facility] Appointment Type:NUT Diet Visit Individual Appointment Date:04/04/2023 02:00:00 PM Scheduled Provider:FOREIGN ELLINGTON DO Location:[facility] Appointment Type:PC Wellness Medicare Appointment Date:04/11/2023 01:30:00 PM Scheduled Provider:LUPIS FERGUSON MD Location:[facility] Appointment Type:ENDO OV Appointment Date:06/01/2023 08:30:00 AM Scheduled Provider: Location:[facility] Appointment Type:DB Diabetic Individual Visit (AOH) Diagnostic Tests Pending * Thyroid Stimulating Immunoglobulin 03/14/23 Future Scheduled Tests Laboratory* Thyroid Stimulating Hormone 01/22/23 * Free T4 01/22/23 [facility] Evaluation + Plan note Future Appointments Appointment Date:04/04/2023 02:00:00 PM Scheduled Provider:FOREIGN ELLINGTON DO Location:[facility] Appointment Type:PC Wellness Medicare Appointment Date:04/11/2023 01:30:00 PM Scheduled Provider:LUPIS FERGUSON MD Location:[facility] Appointment Type:ENDO OV Appointment Date:06/01/2023 08:30:00 AM Scheduled Provider: Location:[facility] Appointment Type:DB Diabetic Individual Visit (AOH) Future Scheduled Tests Laboratory* Thyroid Stimulating Hormone 01/22/23 * Free T4 01/22/23 [facility] Evaluation + Plan note Future Appointments Appointment Date:07/12/2023 10:15:00 AM Scheduled Provider:LUPIS FERGUSON MD Location:[facility] Appointment Type:ENDO OV Appointment Date:08/03/2023 10:00:00 AM Scheduled Provider:FOREIGN ELLINGTON DO [facility] Appointment Type:PC OV Future Scheduled Tests Laboratory* Phosphorus Level 04/04/23 * Thyroid Stimulating Hormone 07/12/23 * Free T4 07/12/23 * A1C Hemoglobin 07/12/23 * Complete Blood Count 04/04/23 * Free T3 07/12/23 * Lipid Profile 04/04/23 * Lipid Profile 07/12/23 * PTH, Intact 04/04/23 * Vitamin D Level 07/12/23 * Complete Metabolic Panel 04/04/23 * Complete Metabolic Panel 07/12/23 [facility] Evaluation + Plan note Future Appointments Appointment Date:07/12/2023 10:15:00 AM Scheduled Provider:LUPIS FERGUSON MD Location:[facility] Appointment Type:[facility] OV Appointment Date:07/20/2023 09:30:00 AM Scheduled Provider: Location:[facility] Appointment Type:NUT Diet Visit Individual Appointment Date:08/03/2023 10:00:00 AM Scheduled Provider:FOREIGN ELLINGTON DO Location:[facility] Appointment Type: OV Future Scheduled Tests Laboratory* Phosphorus Level 04/04/23 * Thyroid Stimulating Hormone 07/12/23 * Free T4 07/12/23 * A1C Hemoglobin 07/12/23 * Complete Blood Count 04/04/23 * Free T3 07/12/23 * Lipid Profile 04/04/23 * Lipid Profile 07/12/23 * PTH, Intact 04/04/23 * Vitamin D Level 07/12/23 * Complete Metabolic Panel 04/04/23 * Complete Metabolic Panel 07/12/23 [facility] Evaluation + Plan note Future Appointments Appointment Date:07/12/2023 10:15:00 AM Scheduled Provider:LUPIS FERGUSON MD Location:[facility] Appointment Type:ENDO OV Appointment Date:07/20/2023 09:30:00 AM Scheduled Provider: Location:[facility] Appointment Type:NUT Diet Visit Individual Appointment Date:08/03/2023 10:00:00 AM Scheduled Provider:FOREIGN ELLINGTON DO [facility] [facility] Type:PC OV Future Scheduled Tests Laboratory* Phosphorus Level 04/04/23 * Complete Blood Count 04/04/23 * Lipid Profile 04/04/23 * PTH, Intact 04/04/23 * Complete Metabolic Panel 04/04/23 [facility] Evaluation + Plan note Future Appointments Appointment Date:08/13/2023 10:00:00 AM Scheduled Provider: Location:[facility] Appointment Type:yyNM Inj Bone Imaging Whole Body1 Appointment Date:08/13/2023 01:00:00 PM Scheduled Provider: Location:[facility] Appointment Type:yyNM Bone Imaging Whole Body Scan Appointment Date:11/22/2023 11:00:00 AM Scheduled Provider:LUPIS FERGUSON MD Location:[facility] Appointment Type:ENDO OV Appointment Date:12/07/2023 10:00:00 AM Scheduled Provider:FOREIGN ELLINGTON DO Location:[facility] Appointment Type: OV Future Scheduled Tests Laboratory* Thyroid Stimulating Hormone 11/10/23 * Free T4 11/10/23 * A1C Hemoglobin 11/10/23 * Free T3 11/10/23 * Lipid Profile 04/04/23 * Albumin/Creatinine Ratio, Random Urine 11/10/23 * Vitamin D Level 11/10/23 * Complete Metabolic Panel 11/10/23 Radiology* NM Bone Imaging Whole Body 08/13/23 [facility] Evaluation + Plan note Future Appointments Appointment Date:11/22/2023 11:00:00 AM Scheduled Provider:LUPIS FERGUSON MD Location:[facility] Appointment Type:ENDO OV Appointment Date:12/07/2023 10:00:00 AM Scheduled Provider:FOREIGN ELLINGTON DO Location:[facility] Appointment Type:PC OV Future Scheduled Tests Laboratory* Thyroid Stimulating Hormone 11/10/23 * Free T4 11/10/23 * A1C Hemoglobin 11/10/23 * Free T3 11/10/23 * Lipid Profile 04/04/23 * Albumin/Creatinine Ratio, Random Urine 11/10/23 * Vitamin D Level 11/10/23 * Complete Metabolic Panel 11/10/23 [facility] Evaluation + Plan note Future Appointments Appointment Date:11/08/2023 08:30:00 AM Scheduled Provider: Location:[facility] Appointment Type:CT Abdomen and Pelvis w/o Contrast Appointment Date:11/22/2023 11:00:00 AM Scheduled Provider:LUPIS FERGUSON MD Location:[facility] Appointment Type:ENDO OV Appointment Date:12/07/2023 10:00:00 AM Scheduled Provider:FOREIGN ELLINGTON DO Location:[facility] Appointment Type:PC OV Future Scheduled Tests Laboratory* Thyroid Stimulating Hormone 11/10/23 * Free T4 11/10/23 * A1C Hemoglobin 11/10/23 * Free T3 11/10/23 * Lipid Profile 04/04/23 * Albumin/Creatinine Ratio, Random Urine 11/10/23 * Vitamin D Level 11/10/23 * Complete Metabolic Panel 11/10/23 Radiology* CT Abdomen and Pelvis w/o contrast 11/08/23 [facility] Evaluation + Plan note Future Appointments Appointment Date:12/07/2023 10:00:00 AM Scheduled Provider:FOREIGN ELLINGTON DO Location:[facility] Appointment Type:PC OV Appointment Date:01/17/2024 11:15:00 AM Scheduled Provider:LUPIS FERGUSON MD Location:[facility] Appointment Type:ENDO OV Future Scheduled Tests Laboratory* Lipid Profile 04/04/23 [facility] Evaluation + Plan note Future Appointments Appointment Date:01/17/2024 11:15:00 AM Scheduled Provider:LUPIS FERGUSON MD Location:[facility] Appointment Type:ENDO OV Future Scheduled Tests Laboratory* Lipid Profile 04/04/23 [facility] Evaluation + Plan note Future Appointments Appointment Date:12/11/2023 01:00:00 PM Scheduled Provider:FOREIGN ELLINGTON DO Location:[facility] Appointment Type:[facility] Hospital Follow-Up Appointment Date:01/17/2024 11:15:00 AM Scheduled Provider:LUPIS FERGUSON MD Location:[facility] Appointment Type:[facility] OV Future Scheduled Tests Laboratory* Thyroid Stimulating Hormone 04/07/24 * Thyroid Stimulating Hormone 01/31/24 * Free T4 04/07/24 * A1C Hemoglobin 04/07/24 * A1C Hemoglobin 01/31/24 * Complete Blood Count 04/07/24 * Free T3 04/07/24 * Lipid Profile 04/04/23 * Lipid Profile 04/07/24 * Lipid Profile 01/31/24 * Albumin/Creatinine Ratio, Random Urine 04/07/24 * Albumin/Creatinine Ratio, Random Urine 01/31/24 * Vitamin D Level 01/31/24 * Complete Metabolic Panel 04/07/24 * Complete Metabolic Panel 01/31/24 [facility] Evaluation + Plan note Future Appointments Appointment Date:01/17/2024 11:15:00 AM Scheduled Provider:LUPIS FERGUSON MD Location:[facility] Appointment Type:ENDO OV Appointment Date:04/08/2024 10:30:00 AM Scheduled Provider:FOREIGN ELLINGTON DO Location:[facility] Appointment Type:PC Wellness Medicare Future Scheduled Tests Laboratory* Thyroid Stimulating Hormone 04/07/24 * Thyroid Stimulating Hormone 01/31/24 * Free T4 04/07/24 * A1C Hemoglobin 04/07/24 * A1C Hemoglobin 01/31/24 * Complete Blood Count 04/07/24 * Free T3 04/07/24 * Lipid Profile 04/04/23 * Lipid Profile 04/07/24 * Lipid Profile 01/31/24 * Albumin/Creatinine Ratio, Random Urine 04/07/24 * Albumin/Creatinine Ratio, Random Urine 01/31/24 * Vitamin D Level 01/31/24 * Complete Metabolic Panel 04/07/24 * Complete Metabolic Panel 01/31/24 [facility] Evaluation + Plan note Future Appointments Appointment Date:01/17/2024 11:15:00 AM Scheduled Provider:LUPIS FERGUSON MD Location:[facility] Appointment Type:ENDO OV Appointment Date:04/08/2024 10:30:00 AM Scheduled Provider:FOREIGN ELLINGTON DO Location:[facility] Appointment Type:PC Wellness Medicare Future Scheduled Tests Laboratory* Thyroid Stimulating Hormone 04/07/24 * Free T4 04/07/24 * A1C Hemoglobin 04/07/24 * Complete Blood Count 04/07/24 * Free T3 04/07/24 * Lipid Profile 04/04/23 * Lipid Profile 04/07/24 * Albumin/Creatinine Ratio, Random Urine 04/07/24 * Complete Metabolic Panel 04/07/24 [facility] Evaluation + Plan note Future Appointments Appointment Date:04/08/2024 10:30:00 AM Scheduled Provider:FOREIGN ELLINGTON DO Location:[facility] Appointment Type:PC Wellness Medicare Appointment Date:07/17/2024 11:00:00 AM Scheduled Provider:LUPIS FERGUSON MD Location:[facility] Appointment Type:ENDO OV Diagnostic Tests Pending * Methylmalonic Acid, Serum 03/04/24 * VANDANA (serum) 03/04/24 Future Scheduled Tests Laboratory* Thyroid Stimulating Hormone 05/18/24 * Thyroid Stimulating Hormone 07/16/24 * Thyroid Stimulating Hormone 04/07/24 * Free T4 05/18/24 * Free T4 07/16/24 * Free T4 04/07/24 * A1C Hemoglobin 05/18/24 * A1C Hemoglobin 07/16/24 * A1C Hemoglobin 04/07/24 * Complete Blood Count 05/18/24 * Complete Blood Count 04/07/24 * Free T3 05/18/24 * Free T3 07/16/24 * Free T3 04/07/24 * Lipid Profile 04/04/23 * Lipid Profile 07/16/24 * Lipid Profile 04/07/24 * Albumin/Creatinine Ratio, Random Urine 05/18/24 * Albumin/Creatinine Ratio, Random Urine 07/16/24 * Albumin/Creatinine Ratio, Random Urine 04/07/24 * Vitamin D Level 07/16/24 * Complete Metabolic Panel 05/18/24 * Complete Metabolic Panel 07/16/24 * Complete Metabolic Panel 04/07/24 [facility] Evaluation + Plan note Future Appointments Appointment Date:04/08/2024 10:30:00 AM Scheduled Provider:FOREIGN ELLINGTON DO Location:[facility] Appointment Type:PC Wellness Medicare Appointment Date:07/17/2024 11:00:00 AM Scheduled Provider:LUPIS FERGUSON MD Location:[facility] Appointment Type:ENDO OV Future Scheduled Tests Laboratory* Thyroid Stimulating Hormone 05/18/24 * Thyroid Stimulating Hormone 07/16/24 * Thyroid Stimulating Hormone 04/07/24 * Free T4 05/18/24 * Free T4 07/16/24 * Free T4 04/07/24 * A1C Hemoglobin 05/18/24 * A1C Hemoglobin 07/16/24 * A1C Hemoglobin 04/07/24 * Complete Blood Count 05/18/24 * Complete Blood Count 04/07/24 * Free T3 05/18/24 * Free T3 07/16/24 * Free T3 04/07/24 * Lipid Profile 04/04/23 * Lipid Profile 07/16/24 * Lipid Profile 04/07/24 * Albumin/Creatinine Ratio, Random Urine 05/18/24 * Albumin/Creatinine Ratio, Random Urine 07/16/24 * Albumin/Creatinine Ratio, Random Urine 04/07/24 * Vitamin D Level 07/16/24 * Complete Metabolic Panel 05/18/24 * Complete Metabolic Panel 07/16/24 * Complete Metabolic Panel 04/07/24 [facility] Evaluation + Plan note Future Appointments Appointment Date:04/25/2024 02:30:00 PM Scheduled Provider: Location:[facility] Appointment Type:MA Mammogram Screening Bilateral w/ Nahid Appointment Date:04/25/2024 03:00:00 PM Scheduled Provider: Location:[facility] Appointment Type:BD Bone Density DEXA Axial Skeleton Appointment Date:07/17/2024 11:00:00 AM Scheduled Provider:LUPIS FERGUSON MD Location:[facility] Appointment Type:ENDO OV Appointment Date:08/05/2024 10:30:00 AM Scheduled Provider:FOREIGN ELLINGTON DO Location:[facility] Appointment Type:PC OV Diagnostic Tests Pending * Intrinsic Factor Abs, Serum 04/14/24 Future Scheduled Tests Laboratory* Thyroid Stimulating Hormone 05/18/24 * Thyroid Stimulating Hormone 07/16/24 * Thyroid Stimulating Hormone 04/07/24 * Free T4 05/18/24 * Free T4 07/16/24 * Free T4 04/07/24 * A1C Hemoglobin 05/18/24 * A1C Hemoglobin 07/16/24 * A1C Hemoglobin 04/07/24 * Complete Blood Count 05/18/24 * Complete Blood Count 04/07/24 * Free T3 05/18/24 * Free T3 07/16/24 * Free T3 04/07/24 * Lipid Profile 07/16/24 * Lipid Profile 04/07/24 * Albumin/Creatinine Ratio, Random Urine 05/18/24 * Albumin/Creatinine Ratio, Random Urine 07/16/24 * Albumin/Creatinine Ratio, Random Urine 04/07/24 * Vitamin D Level 07/16/24 * Complete Metabolic Panel 05/18/24 * Complete Metabolic Panel 07/16/24 * Complete Metabolic Panel 04/07/24 Radiology* MA Mammo Screening Bilateral w/ Nahid 04/25/24 * BD Bone Density DEXA Axial Skeleton Adult (21 yrs or older) 04/25/24 [facility] Evaluation + Plan note Future Appointments Appointment Date:07/17/2024 11:00:00 AM Scheduled Provider:LUPIS FERGUSON MD Location:[facility] Appointment Type:ENDO OV Appointment Date:08/05/2024 10:30:00 AM Scheduled Provider:FOREIGN ELLINGTON DO Location:[facility] Appointment Type:PC OV Future Scheduled Tests Laboratory* Thyroid Stimulating Hormone 05/18/24 * Thyroid Stimulating Hormone 07/16/24 * Thyroid Stimulating Hormone 04/07/24 * Free T4 05/18/24 * Free T4 07/16/24 * Free T4 04/07/24 * A1C Hemoglobin 05/18/24 * A1C Hemoglobin 07/16/24 * A1C Hemoglobin 04/07/24 * Complete Blood Count 05/18/24 * Complete Blood Count 04/07/24 * Free T3 05/18/24 * Free T3 07/16/24 * Free T3 04/07/24 * Lipid Profile 07/16/24 * Lipid Profile 04/07/24 * Albumin/Creatinine Ratio, Random Urine 05/18/24 * Albumin/Creatinine Ratio, Random Urine 07/16/24 * Albumin/Creatinine Ratio, Random Urine 04/07/24 * Vitamin D Level 07/16/24 * Complete Metabolic Panel 05/18/24 * Complete Metabolic Panel 07/16/24 * Complete Metabolic Panel 04/07/24 [facility] Evaluation + Plan note Future Appointments Appointment Date:07/17/2024 11:00:00 AM Scheduled Provider:LUPIS FERGUSON MD Location:[facility] Appointment Type:ENDO OV Appointment Date:08/05/2024 10:30:00 AM Scheduled Provider:FOREIGN ELLINGTON DO Location:[facility] Appointment Type:PC OV Diagnostic Tests Pending * Free T4 07/14/24 Future Scheduled Tests Laboratory* Thyroid Stimulating Hormone 05/18/24 * Thyroid Stimulating Hormone 04/07/24 * Free T4 05/18/24 * Free T4 04/07/24 * A1C Hemoglobin 05/18/24 * A1C Hemoglobin 04/07/24 * Complete Blood Count 05/18/24 * Complete Blood Count 04/07/24 * Free T3 05/18/24 * Free T3 04/07/24 * Lipid Profile 04/07/24 * Albumin/Creatinine Ratio, Random Urine 05/18/24 * Albumin/Creatinine Ratio, Random Urine 04/07/24 * Complete Metabolic Panel 05/18/24 * Complete Metabolic Panel 04/07/24 [facility] Evaluation + Plan note Future Appointments Appointment Date:10/30/2024 01:30:00 PM Scheduled Provider:FOREIGN ELLINGTON DO Location:[facility] Appointment Type:PC OV Appointment Date:11/04/2024 10:15:00 AM Scheduled Provider:LUPIS FERGUSON MD Location:[facility] Appointment Type:ENDO OV Appointment Date:11/27/2024 02:30:00 PM Scheduled Provider:FOREIGN ELLINGTON DO Location:[facility] Appointment Type:PC OV Pre Op Appointment Date:04/14/2025 11:00:00 AM Scheduled Provider:FOREIGN ELLINGTON DO Location:[facility] Appointment Type:PC Wellness Medicare Future Scheduled Tests Laboratory* Thyroid Stimulating Hormone 10/17/24 * Thyroid Stimulating Hormone 05/18/24 * Thyroid Stimulating Hormone 04/07/24 * Free T4 10/17/24 * Free T4 05/18/24 * Free T4 04/07/24 * A1C Hemoglobin 10/17/24 * A1C Hemoglobin 05/18/24 * A1C Hemoglobin 04/07/24 * Complete Blood Count 05/18/24 * Complete Blood Count 04/07/24 * Free T3 10/17/24 * Free T3 05/18/24 * Free T3 04/07/24 * Lipid Profile 04/07/24 * Albumin/Creatinine Ratio, Random Urine 05/18/24 * Albumin/Creatinine Ratio, Random Urine 04/07/24 * Complete Metabolic Panel 10/17/24 * Complete Metabolic Panel 05/18/24 * Complete Metabolic Panel 04/07/24 [facility] Evaluation + Plan note Future Appointments Appointment Date:11/04/2024 10:15:00 AM Scheduled Provider:LUPIS FERGUSON MD Location:[facility] Appointment Type:ENDO OV Appointment Date:11/27/2024 02:30:00 PM Scheduled Provider:FOREIGN ELLINGTON DO Location[facility] Appointment Type:PC OV Pre Op Appointment Date:04/14/2025 11:00:00 AM Scheduled Provider:FOREIGN ELLINGTON DO Location:[facility] Appointment Type:PC Wellness Medicare Future Scheduled Tests Laboratory* Thyroid Stimulating Hormone 10/17/24 * Thyroid Stimulating Hormone 05/18/24 * Thyroid Stimulating Hormone 04/07/24 * Free T4 10/17/24 * Free T4 05/18/24 * Free T4 04/07/24 * A1C Hemoglobin 10/17/24 * A1C Hemoglobin 05/18/24 * A1C Hemoglobin 04/07/24 * Complete Blood Count 05/18/24 * Complete Blood Count 04/07/24 * Free T3 10/17/24 * Free T3 05/18/24 * Free T3 04/07/24 * Lipid Profile 04/07/24 * Albumin/Creatinine Ratio, Random Urine 05/18/24 * Albumin/Creatinine Ratio, Random Urine 04/07/24 * Complete Metabolic Panel 10/17/24 * Complete Metabolic Panel 05/18/24 * Complete Metabolic Panel 04/07/24 [facility] Evaluation + Plan note Future Appointments Appointment Date:11/27/2024 02:30:00 PM Scheduled Provider:FOREIGN ELLINGTON DO Location:[facility] Appointment Type:PC OV Pre Op Appointment Date:04/14/2025 11:00:00 AM Scheduled Provider:FOREIGN ELLINGTON DO Location:[facility] Appointment Type:PC Wellness Medicare Appointment Date:04/30/2025 11:15:00 AM Scheduled Provider:LUPIS FERGUSON MD Location:[facility] Appointment Type:ENDO OV Future Scheduled Tests Laboratory* Thyroid Stimulating Hormone 11/04/24 * Thyroid Stimulating Hormone 05/06/25 * Thyroid Stimulating Hormone 05/18/24 * Thyroid Stimulating Hormone 04/07/24 * Free T4 11/04/24 * Free T4 05/06/25 * Free T4 05/18/24 * Free T4 04/07/24 * A1C Hemoglobin 05/06/25 * A1C Hemoglobin 05/18/24 * A1C Hemoglobin 04/07/24 * Complete Blood Count 05/18/24 * Complete Blood Count 04/07/24 * Free T3 11/04/24 * Free T3 05/06/25 * Free T3 05/18/24 * Free T3 04/07/24 * Lipid Profile 05/06/25 * Lipid Profile 04/07/24 * Albumin/Creatinine Ratio, Random Urine 05/06/25 * Albumin/Creatinine Ratio, Random Urine 05/18/24 * Albumin/Creatinine Ratio, Random Urine 04/07/24 * Vitamin D Level 05/06/25 * Complete Metabolic Panel 05/06/25 * Complete Metabolic Panel 05/18/24 * Complete Metabolic Panel 04/07/24 [facility] Evaluation + Plan note Future Appointments Appointment Date:11/28/2024 10:30:00 AM Scheduled Provider:FOREIGN ELLINGTON DO Location:[facility] Appointment Type:PC OV Appointment Date:04/14/2025 11:00:00 AM Scheduled Provider:FOREIGN ELLINGTON DO Location:[facility] Appointment Type:PC Wellness Medicare Appointment Date:04/30/2025 11:15:00 AM Scheduled Provider:LUPIS FERGUSON MD Location:[facility] Appointment Type:ENDO OV Future Scheduled Tests Laboratory* Thyroid Stimulating Hormone 11/04/24 * Thyroid Stimulating Hormone 05/06/25 * Thyroid Stimulating Hormone 05/18/24 * Thyroid Stimulating Hormone 04/07/24 * Free T4 11/04/24 * Free T4 05/06/25 * Free T4 05/18/24 * Free T4 04/07/24 * A1C Hemoglobin 05/06/25 * A1C Hemoglobin 05/18/24 * A1C Hemoglobin 04/07/24 * Complete Blood Count 05/18/24 * Complete Blood Count 04/07/24 * Free T3 11/04/24 * Free T3 05/06/25 * Free T3 05/18/24 * Free T3 04/07/24 * Lipid Profile 05/06/25 * Lipid Profile 04/07/24 * Albumin/Creatinine Ratio, Random Urine 05/06/25 * Albumin/Creatinine Ratio, Random Urine 05/18/24 * Albumin/Creatinine Ratio, Random Urine 04/07/24 * Vitamin D Level 05/06/25 * Complete Metabolic Panel 05/06/25 * Complete Metabolic Panel 05/18/24 * Complete Metabolic Panel 04/07/24 [facility] Evaluation + Plan note Future Appointments Appointment Date:02/26/2025 01:30:00 PM Scheduled Provider:FOREIGN ELLINGTON DO Location:[facility] Appointment Type:PC OV Follow Up Appointment Date:04/14/2025 11:00:00 AM Scheduled Provider:FOREIGN ELLINGTON DO Location:[facility] Appointment Type:PC Wellness Medicare Appointment Date:04/30/2025 11:15:00 AM Scheduled Provider:LUPIS FERGUSON MD Location:[facility] Appointment Type:ENDO OV Future Scheduled Tests Laboratory* Thyroid Stimulating Hormone 11/04/24 * Thyroid Stimulating Hormone 05/06/25 * Thyroid Stimulating Hormone 05/18/24 * Free T4 11/04/24 * Free T4 05/06/25 * Free T4 05/18/24 * A1C Hemoglobin 05/06/25 * A1C Hemoglobin 05/18/24 * Complete Blood Count 05/18/24 * Free T3 11/04/24 * Free T3 05/06/25 * Free T3 05/18/24 * Lipid Profile 05/06/25 * Albumin/Creatinine Ratio, Random Urine 05/06/25 * Albumin/Creatinine Ratio, Random Urine 05/18/24 * Vitamin D Level 05/06/25 * Complete Metabolic Panel 05/06/25 * Complete Metabolic Panel 05/18/24 Radiology* MRI Spine Lumbar w/o Contrast 01/01/25 [facility] Evaluation + Plan note Future Appointments Appointment Date:01/23/2025 04:30:00 PM Scheduled Provider: [facility] Appointment Type:Anticoagulation Clinic Home INR Monitori Appointment Date:01/26/2025 10:30:00 AM Scheduled Provider:ANSHU DAMON MD Location:[facility] Appointment Type:Established Patient Office [facility] Evaluation + Plan note Future Appointments Appointment Date:06/08/2025 12:15:00 PM Scheduled Provider: Location:[facility] Appointment Type:Echocardiogram Appointment Date:06/08/2025 01:30:00 PM Scheduled Provider:ANSHU DAMON MD Location:[facility] Eduardo Appointment Type:HWC Pulmonary Hypertension w/6 MWT Appointment Date:06/08/2025 02:00:00 PM Scheduled Provider:ANSHU DAMON MD Location:[facility] Appointment Type:HWC Pulmonary Hypertension w/6 MWT Office [facility] Evaluation + Plan note Future Appointments Appointment Date:02/04/2025 06:00:00 PM Scheduled Provider: Location[facility] Appointment Type:Anticoagulation Clinic Home INR Monitori Appointment Date:06/08/2025 12:15:00 PM Scheduled Provider: Location:[facility] Appointment Type:Echocardiogram Appointment Date:06/08/2025 01:30:00 PM Scheduled Provider:ANSHU DAMON MD Location:[facility] C3Jerilyn Appointment Type:HWC Pulmonary Hypertension w/6 MWT Appointment Date:06/08/2025 02:00:00 PM Scheduled Provider:ANSHU DAMON MD Location:[facility] Appointment Type:HWC Pulmonary Hypertension w/6 MWT [facility] evaluqmmjo + Plan note Future Appointments Appointment Date:02/18/2025 04:30:00 PM Scheduled Provider: Location[facility] Appointment Type:Anticoagulation Clinic Home INR Monitori Appointment Date:06/08/2025 12:15:00 PM Scheduled Provider: Location:[facility] C205 Appointment Type:Echocardiogram Appointment Date:06/08/2025 01:30:00 PM Scheduled Provider:ANSHU DAMON MD Location:[facility] C308 Appointment Type:HWC Pulmonary Hypertension w/6 MWT Appointment Date:06/08/2025 02:00:00 PM Scheduled Provider:ANSHU DAMON MD Location:[facility] C308 Appointment Type:C Pulmonary Hypertension w/6 MWT Office [facility] Evaluation + Plan note Future Appointments Appointment Date:03/10/2025 10:30:00 AM Scheduled Provider:Yossi Downing PT Location:[facility] Appointment Type:PT [facility] Appointment Date:04/07/2025 11:00:00 AM Scheduled Provider:FOREIGN ELLINGTON DO Location:[facility] Appointment Type:PC OV Follow Up Appointment Date:04/14/2025 11:00:00 AM Scheduled Provider:FOREIGN ELLINGTON DO Location:[facility] Appointment Type:PC Wellness Medicare Appointment Date:04/30/2025 11:15:00 AM Scheduled Provider:LUPIS FERGUSON MD Location:[facility] Appointment Type:ENDO OV Future Scheduled Tests Laboratory* Iron Level 02/26/25 * Magnesium Level 02/26/25 * Thyroid Stimulating Hormone 11/04/24 * Thyroid Stimulating Hormone 05/06/25 * Free T4 11/04/24 * Free T4 05/06/25 * Vitamin B12 Level 02/26/25 * A1C Hemoglobin 05/06/25 * Complete Blood Count 02/26/25 * Free T3 11/04/24 * Free T3 05/06/25 * Lipid Profile 05/06/25 * Albumin/Creatinine Ratio, Random Urine 05/06/25 * Vitamin D Level 05/06/25 * Vitamin D Level 02/26/25 * Complete Metabolic Panel 05/06/25 * Complete Metabolic Panel 02/26/25 Radiology* MRI Spine Lumbar w/o Contrast 03/02/25 [facility] Evaluation + Plan note Future Appointments Appointment Date:03/17/2025 10:30:00 AM Scheduled Provider:Yossi Downing PT Location:[facility] Appointment Type:PT Treatment - [place] Appointment Date:03/18/2025 01:00:00 PM Scheduled Provider:Yossi Downing PT Location:[facility] Appointment Type:PT Treatment - [place] Appointment Date:04/07/2025 11:00:00 AM Scheduled Provider:FOREIGN ELLINGTON DO Location:[facility] Appointment Type:PC OV Follow Up Appointment Date:04/14/2025 11:00:00 AM Scheduled Provider:FOREIGN ELLINGTON DO Location:[facility] Appointment Type:PC Wellness Medicare Appointment Date:04/30/2025 11:15:00 AM Scheduled Provider:LUPIS FERGUSON MD Location:[facility] Appointment Type:ENDO OV Future Scheduled Tests Laboratory* Iron Level 02/26/25 * Magnesium Level 02/26/25 * Thyroid Stimulating Hormone 11/04/24 * Thyroid Stimulating Hormone 05/06/25 * Free T4 11/04/24 * Free T4 05/06/25 * Vitamin B12 Level 02/26/25 * A1C Hemoglobin 05/06/25 * Complete Blood Count 02/26/25 * Free T3 11/04/24 * Free T3 05/06/25 * Lipid Profile 05/06/25 * Albumin/Creatinine Ratio, Random Urine 05/06/25 * Vitamin D Level 05/06/25 * Vitamin D Level 02/26/25 * Complete Metabolic Panel 05/06/25 * Complete Metabolic Panel 02/26/25 [facility] Evaluation noteNo assessment information available [facility] Work Phone: History of Present illness Narrative* c/o tired/ aches a lot (hands) * is tired.. has DEUCE. on cpap. may have pulm htn . ..may be getting a right hear t cath. * neck ok * no cough or fver * may oxygen at nite * pulm is at [place] * takes lt4 rx fine * cards dr. price. -[facility] Work Phone: History of Present illness Narrative* c/o tired/ aches a lot (hands) * is tired.. has DEUCE. on cpap. may have pulm htn . ..may be getting a right hear t cath. * neck ok * no cough or fver * may need oxygen at nite * gricelda jiménez is at [place]//dx d pt. c component of asthma * takes lt4 rx fine * cards dr. price. [facility] Work Phone: History of Present illness Narrative* kidney stones 2021 * saw a bernadine jiménez . stones again a few months later * four states dr camacho * had scope. .. 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 stones again a few months later * four states dr camacho is gu drLeanne * had scope. .. kavya d all clear dr camacho no more stones * feels lousy * has OA of shoulders * and rot cuff pains * pcp foreign ellington in [facility] * recent gluc 200 level..i told pt she needs to follow up c pcp on that issue * gricelda jiménez in [place] * kidney stone prevention measures discussed..i explained often times no clear trigger for stones in a pt is found * she feels she can incr water intakde * sh doesn t know what type of stone she has tydy [facility] Work Phone: History of Present illness NarrativePatient seen for a new problem right shoulder. [...] when she walks. No pain when she stands.[facility] Work Phone: History of Present illness NarrativePatient seen for a new problem right shoulder. [...] when she walks. No pain when she stands.[facility] Work Phone: History of Present illness NarrativeLeft shoulder fluoro-guided injection. She is 98% better in her own words. She does have to be careful with certain things. When she abducts, certain driving maneuvers lifting cause pain in the shoulder.[facility] Work Phone: Hospital course Narrative No data available for this section [facility] Discharge instructions No data available for this section [facility] Discharge instructionsAdditional Instructions Follow preprinted instructions from Dr. Burnette's office. Recheck INR lab work needs checked 12/24[facility] Work Phone: Note* Paulie Flood: PERFORM Event Display: Pain Management Treatment Agreement Authored Date: [id number] [facility] Progress note No data available for this section [facility] Reason for referral (narrative)No reason for referral [facility] available[facility] Work Phone: Summary Purpose Family History No Family History [...] At Age 42 : Father Comments:father from [place] ; Status:Active Mother At Age 67 : Mother Comments:mother from [place] ; Status:Active Family history of cardiac ar rest: Father(V17.49, Z82.49) Status:Active Biliary liver cirrhosis: Mot her Status:Active Family history of diabetes m ellitus: Mother(V18.0, Z83.3) Status:Active Unknown Family Member Name Dates Details Father At Age 42 : Father Comments:father from [place] ; Status:Active Mother At Age 67 : Mother Comments:mother from [place] ; Status:Active Family history of cardiac ar rest: Father(V17.49, Z82.49) Status:Active Biliary liver cirrhosis: Mot her Status:Active Family history of diabetes m ellitus: Mother(V18.0, Z83.3) Status:Active Unknown Family Member Name Dates Details Father At Age 42 : Father Comments:father from [place] ; Status:Active Mother At Age 67 : Mother Comments:mother from [place] ; Status:Active Family history of cardiac ar rest: Father(V17.49, Z82.49) Status:Active Biliary liver cirrhosis: Mot her Status:Active Family history of diabetes m ellitus: Mother(V18.0, Z83.3) Status:Active Unknown Family Member Name Dates Details Father At Age 42 : Father Comments:father from [place] ; Status:Active Mother At Age 67 : Mother Comments:mother from [place] ; Status:Active Family history of cardiac ar rest: Father(V17.49, Z82.49) Status:Active Biliary liver cirrhosis: Mot her Status:Active Family history of diabetes m ellitus: Mother(V18.0, Z83.3) Status:Active Unknown Family Member Name Dates Details Father At Age 42 : Father Comments:father from [place] ; Status:Active Mother At Age 67 : Mother Comments:mother from [place] ; Status:Active Family history of cardiac ar rest: Father(V17.49, Z82.49) Status:Active Biliary liver cirrhosis: Mot her Status:Active Family history of diabetes m ellitus: Mother(V18.0, Z83.3) Status:Active Unknown Family Member Name Dates Details Father At Age 42 : Father Comments:father from [place] ; Status:Active Mother At Age 67 : Mother Comments:mother from [place] ; Status:Active Family history of cardiac ar [...] At Age 67 : Mother Comments:mother from [place] ; Status:Active Father At Age 42 : Father Comments:father from [place] ; Status:Active Unknown Family Member Name Dates Details Father At Age 42 : Father Comments:father from [place] ; Status:Active Mother At Age 67 : Mother Comments:mother from [place] ; Status:Active Family history of cardiac ar rest: Father(V17.49, Z82.49) Status:Active Biliary liver cirrhosis: Mot her Status:Active Family history of diabetes m ellitus: Mother(V18.0, Z83.3) Status:Active Unknown Family Member Name Dates Details Father At Age 42 : Father Comments:father from [place] ; Status:Active Mother At Age 67 : Mother Comments:mother from [place] ; Status:Active Family history of diabetes m ellitus: Mother(V18.0, Z83.3) Status:Active Biliary liver cirrhosis: Mot her Status:Active Family history of cardiac ar rest: Father(V17.49, Z82.49) Status:Active Unknown Family Member Name Dates Details Father At Age 42 : Father Comments:father from [place] ; Status:Active Mother At Age 67 : Mother Comments:mother from [place] ; Status:Active Family history of cardiac ar rest: Father(V17.49, Z82.49) Status:Active Biliary liver cirrhosis: Mot her Status:Active Family history of diabetes m ellitus: Mother(V18.0, Z83.3) Status:Active Unknown Family Member Name Dates Details Father At Age 42 : Father Comments:father from [place] ; Status:Active Mother At Age 67 : Mother Comments:mother from [place] ; Status:Active Family history of diabetes m ellitus: Mother(V18.0, Z83.3) Status:Active Biliary liver cirrhosis: Mot her Status:Active Family history of cardiac ar rest: Father(V17.49, Z82.49) Status:Active Unknown Family Member Name Dates Details Father At Age 42 : Father Comments:father from [place] ; Status:Active Mother At Age 67 : Mother Comments:mother from [place] ; Status:Active Family history of cardiac ar rest: Father(V17.49, Z82.49) Status:Active Biliary liver cirrhosis: Mot her Status:Active Family history of diabetes m ellitus: Mother(V18.0, Z83.3) Status:Active Unknown Family Member Name Dates Details Father At Age 42 : Father Comments:father from [place] ; Status:Active Mother At Age 67 : Mother Comments:mother from [place] ; Status:Active Family history of cardiac ar [...] At Age 67 : Mother Comments:mother from [place] ; Status:Active Father At Age 42 : Father Comments:father from [place] ; Status:Active Unknown Family Member Name Dates Details Father At Age 42 : Father Comments:father from [place] ; Status:Active Mother At Age 67 : Mother Comments:mother from [place] ; Status:Active Family history of cardiac ar rest: Father(V17.49, Z82.49) Status:Active Biliary liver cirrhosis: Mot her Status:Active Family history of diabetes m ellitus: Mother(V18.0, Z83.3) Status:Active Advance Directives No Advanced Directives Records Found Advance Directive Response Recorded Date/ Time Living Will Yes December 21 2:06pm Power of Employment Attorney Yes December 21 2:06pm Advance Directive Response Recorded Date/ Time Living Will Yes December 21 3:06pm Power of Employment Attorney Yes December 21 3:06pm Advance Directive Response Recorded Date/ Time Do you have a Healthcare Power of Employment Attorney? No December 22, 2024 4:48pm Chief Complaint here for thyroid followuphere for thyroid followupfollow up hypothyroidRt hip and Rt shoulder pain xrays todayRt hip and Rt shoulder pain xrays todayRt hip and Rt shoulder pain xrays todayDM concernsDM concerns//referred by pcpf/u left shoulder pain s/p FLuoro injectionf/u left shoulder pain s/p FLuoro injection Chief Complaint and Reason for Visit Chief Complaint URETERAL STONE LEFT Chief Complaint Dorsalgia, unspecifi ed rt groin pain Chief Complaint KUB - RENAL CALCULUS Chief Complaint Admit Date PREOP November 25, 2024 9:55 am ROBOTIC ASSISTED RIGHT TOTAL KNEE ARTHRO PLASTY, ER December 22, 2024 12:20pm ROBOTIC ASSISTED RIGHT TOTAL KNEE ARTHRO PLASTY, ER December 22, 2024 8:24pm ROBOTIC ASSISTED RIGHT TOTAL KNEE ARTHRO PLASTY, ER December 23, 2024 3:06pm Reason for Visit Admit Date Diabetes December 22, 2024 12 :20pm S/P total knee arthroplasty December 22, 2024 12:20pm Additional Source Comments INFORMATION SOURCE (unrecogn ized section and content) DATE CREATED AUTHOR 11/06/2017 [facility] DATE CREATED AUTHOR AUTHOR'S ORGANIZ ATION 11/25/2018 [facility] DATE CREATED AUTHOR AUTHOR'S ORGANIZ ATION 02/15/2019 [facility] DATE CREATED AUTHOR AUTHOR'S ORGANIZ ATION 12/07/2019 [facility] DATE CREATED AUTHOR AUTHOR'S ORGANIZ ATION 07/08/2022 [facility] DATE CREATED AUTHOR AUTHOR'S ORGANIZ ATION 07/14/2022 [facility] DATE CREATED AUTHOR AUTHOR'S ORGANIZ ATION 07/23/2022 [facility] DATE CREATED AUTHOR AUTHOR'S ORGANIZ ATION 01/11/2024 [facility] ([place] DATE CREATED AUTHOR AUTHOR'S ORGANIZ ATION 03/19/[address] [facility] DATE CREATED AUTHOR AUTHOR'S ORGANIZ ATION 03/19/2025 [facility] DATE CREATED AUTHOR AUTHOR'S ORGANIZ ATION 03/23/[address] [facility] Care Team (unrecognized sect ion and content) Team Status: Active Member Role Status Dates Dr. Foreign Ellington DO Primary Care Provider Active Team Status: Inactive Member Role Status Dates Dr. Foreign Ellington DO Primary Care Provider Active Stella Patrick SEMICONDUCTOR ASSEMBLER, SEMICONDUCTOR ASSEMBLER-C Attending Provider, Referring Pr ovider Active Team Status: Inactive Member Role Status Dates Dr. Foreign Ellington DO Primary Care Provider Active Dr. Robson Orellana MD Attending Provider, Referring Provider Active Team Status: Inactive Member Role Status Dates Dr. Foreign Ellington DO Primary Care Provider Active Dr. Tracy Camacho MD Attending Provider, Referring P andrew Active Team Status: Active Member Role/Relationship Status Dates Dr. Foreign Ellington DO Primary Care Provider Active Team Status: Inactive Member Role/Relationship Status Dates Dr. Foreign Ellington DO Primary Care Provider Active Start: November 11, 2024 Dr. Tracy Camacho MD Attending Provider Active Start: November 11, 2024 Team Status: Active Member Role/Relationship Status Dates Dr. Foreign Ellington DO Primary Care Provider Active Start: November 25, 2024 End: November 25, 2024 Dr. Riri Tavarez MD Attending Provider Active Start: November 25, 2024 End: November 25, 2024 Dr. Yossi Burnette DO Referring Provider Active Start: November 25, 2024 End: November 25, 2024 Team Status: Inactive Member Role/Relationship Status Dates Dr. Foreign Ellington DO Primary Care Provider Active Start: December 22, 2024 End: December 23, 2024 Dr. Yossi Burnette DO Admit Provider Active Start: December 22, 2024 End: December 23, 2024 Dr. Yossi Burnette DO Attending Provider Active Start: December 22, 2024 End: December 23, 2024 Dr. Yossi Burnette DO Referring Provider Active Start: December 22, 2024 End: December 23, 2024 Dr. Yossi Riley MD Other Provider Active Start: December 22, 2024 End: December 23, 2024 Team Status: Active Member Role/Relationship Status Dates Dr. Foreign Ellington DO Primary Care Provider Active Start: December 22, 2024 Dr. Yossi Burnette DO Admit Provider Active Start: December 22, 2024 Dr. Yossi Burnette DO Referring Provider Active Start: December 22, 2024 Dr. Yossi Burnette DO Other Provider Active Start: December 22, 2024 Dr. Reggie Pathak DO Other Provider Active S tart: December 22, 2024 Dr. Brooke Reed MD Attending Provider Active Start: December 22, 2024 Team Status: Active Member Role/Relationship Status Dates Dr. Foreign Ellington DO Primary Care Provider Active Start: December 23, 2024 Dr. Yossi Burnette DO Admit Provider Active Start: December 23, 2024 Dr. Yossi Burnette DO Referring Provider Active Start: December 23, 2024 Dr. Yossi Burnette DO Other Provider Active Start: December 23, 2024 Dr. Yossi Riley MD Attending Provider Active Start: December 23, 2024 Dr. Yossi Riley MD Other Provider Active Start: December 23, 2024 Care Team (unrecognized sect ion and content) Personnel Name: FOREIGN ELLINGTON DO Address: Address: [address] [place] [address] Name: Pamella Steen PT Personnel Name: FOREIGN ELLINGTON DO Address: Address: [address] [place], [place] [address]- Name: Pamella Steen Clerk Stella PT Personnel Name: FOREIGN ELLINGTON DO Address: Address: [address] [place] [address]- Name: Pamella Steen Clerk Stella PT Care Team Personnel Name: Pamella Steen Clerk Stella PT Position: P3 Scheduling - Trampoline Team Coach Advanced Member Role: Other Name: FOREIGN ELLINGTON DO Position: P4 Physician - Primary Care Med Service: Active Provider Member Role: Primary Care Physician Address: Address: [address] [place] [address] Name: MAXIMILIANO DIMAS MD Position: Physician Med Service: Admitting Member Role: Delivery Architect Address: Address: [address] [place] [address] [place] [address]- Name: MD ANSHU DAMON Member Role: Prosthodontist Address: Address: [address] [place] [address]- Name: BHAVNA BELTRAN MD Position: P4 Physician - General Surgery Med Service: Employed Provider Member Role: Pain Management Address: Address: [address] [facility] [place] [address]- [place] Care Team Related Persons Name: ANANYA BAH Care Team Personnel Name: Pamella Steen Clerk Stella PT Position: P3 Scheduling - Trampoline Team Coach Advanced Member Role: Other Name: FOREIGN ELLINGTON DO Position: P4 Physician - Primary Care Med Service: Active Provider Member Role: Primary Care Physician Address: Address: [address] [place] [address]- Name: MAXIMILIANO DIMAS MD Position: Physician Med Service: Admitting Member Role: Delivery Architect Address: Address: [address] [facility] [place] [address]- [place] Name: MD ANSHU DAMON Member Role: Prosthodontist Address: Address: [address] [place], [place] [address]- [place] Name: BHAVNA BELTRAN MD Position: P4 Physician - General Surgery Med Service: Employed Provider Member Role: Pain Management Address: Address: [address] [facility] [place] [address]- Care Team Related Persons Name: ANANYA BAH Care Team Personnel Name: Pamella Steen Clerk Stella PT Position: P3 Scheduling - Trampoline Team Coach Advanced Member Role: Other Name: FOREIGN ELLINGTON DO Position: P4 Physician - Primary Care Med Service: Active Provider Member Role: Primary Care Physician Address: Address: [address] [place] [address]- Name: MAXIMILIANO DIMAS MD Position: Physician Med Service: Admitting Member Role: Delivery Architect Address: Address: [address] [place] [address] [place] [address]- [place] Name: MD ANSHU DAMON Member Role: Prosthodontist Address: Address: [address] [place], [place] [id number]- Name: BHAVNA BELTRAN MD Position: P4 Physician - General Surgery Med Service: Employed Provider Member Role: Pain Management Address: Address: [address] [facility] Pain Management [place], [place] [address] Care Team Related Persons Name: ANANYA BAH Care Team Personnel Name: Pamella Steen Clerk Stella PT Position: P3 Scheduling - Trampoline Team Coach Advanced Member Role: Other Name: FOREIGN ELLINGTON DO Position: P4 Physician - Primary Care Med Service: Active Provider Member Role: Primary Care Physician Address: Address: [address] [place] [id number]- Name: MAXIMILIANO DIMAS MD Position: Physician Med Service: Admitting Member Role: Delivery Architect Address: Address: [address] [place] [address] [place] [address]- Name: MD ANSHU DAMON Member Role: Prosthodontist Address: Address: [address] [place], [place] [address]- [place] Name: BHAVNA BELTRAN MD Position: P4 Physician - General Surgery Med Service: Employed Provider Member Role: Pain Management Address: Address: [address] [facility] [place] [address]- Care Team Related Persons Name: ANANYA BAH Care Team Personnel Name: Pamella Steen Clerk Stella PT Position: P3 Scheduling - Trampoline Team Coach Advanced Member Role: Other Name: FOREIGN ELLINGTON DO Position: P4 Physician - Primary Care Med Service: Active Provider Member Role: Primary Care Physician Address: Address: [address] [place] [address]- Name: MAXIMILIANO DIMAS MD Position: Physician Med Service: Admitting Member Role: Delivery Architect Address: Address: [address] [place] [address] [place] [address]- Name: MD ANSHU DAMON Member Role: Prosthodontist Address: Address: [address] [place], [place] [address]- Name: BHAVNA BELTRAN MD Position: P4 Physician - General Surgery Med Service: Employed Provider Member Role: Pain Management Address: Address: [address] [facility] [place] [address]- Care Team Related Persons Name: ANANYA BAH Care Team Personnel Name: Pamella Steen Clerk Stella PT Position: P3 Scheduling - Trampoline Team Coach Advanced Member Role: Other Name: FOREIGN ELLINGTON DO Position: P4 Physician - Primary Care Member Role: Primary Care Physician Address: Address: [address] [place] [address]- Name: MAXIMILIANO DIMAS MD Position: Physician Member Role: Delivery Architect Address: Address: [address] [place] [address] [place] [address]- Name: MD ANSHU DAMON Member Role: Prosthodontist Address: Address: [address] [place], [place] [address]- Name: BHAVNA BELTRAN MD Position: P4 Physician - General Surgery Member Role: Pain Management Address: Address: [address] [facility] [place] [address]- Care Team Related Persons Name: ANANYA BAH Care Team Personnel Name: Pamella Steen Clerk Stella PT Position: P3 Scheduling - Trampoline Team Coach Advanced Member Role: Other Name: FOREIGN ELLINGTON DO Position: P4 Physician - Primary Care Member Role: Primary Care Physician Address: Address: [address] [place] [address]- Name: MAXIMILIANO DIMAS MD Position: Physician Member Role: Delivery Architect Address: Address: [address] [facility] [place] [address]- [place] Name: MD ANSHU DAMON Member Role: Prosthodontist Address: Address: [address] [address] [address]- [place] Name: BHAVNA BELTRAN MD Position: P4 Physician - General Surgery Member Role: Pain Management Address: Address: [address] [facility] [place] [address]- [place] Care Team Related Persons Name: LYNN ANANYA Care Team Personnel Name: Enio, Pre Billing Clinician Stella PT Position: P3 Scheduling - Trampoline Team Coach Advanced Member Role: Other Name: FOREIGN ELLINGTON DO Position: P4 Physician - Primary Care Member Role: Primary Care Physician Address: Address: [address] [place] [address]- Name: MAXIMILIANO DIMAS MD Position: Physician Member Role: Delivery Architect Address: Address: [facility] [place] [address]- Name: MD ANSHU DAMON Member Role: Prosthodontist Address: Address: [address] [place] [address]- [place] Name: BHAVNA BELTRAN MD Position: P4 Physician - General Surgery Member Role: Pain Management Address: Address: [address] [facility] [place] [address]- Care Team Related Persons Name: ANANYA BAH Care Team Personnel Name: Enio, Pre Billing Clinician Stella PT Position: P3 Scheduling - Trampoline Team Coach Advanced Member Role: Other Name: FOREIGN ELLINGTON DO Position: P4 Physician - Primary Care Member Role: Primary Care Physician Address: Address: [address] [place] [address]- Name: MAXIMILIANO DIMAS MD Position: Physician Member Role: Delivery Architect Address: Address: [address] [facility] [place] [address]- [place] Name: MD ANSHU DAMON Member Role: Prosthodontist Address: Address: [address] [address] [address]- [place] Name: BHAVNA BELTRAN MD Position: P4 Physician - General Surgery Member Role: Pain Management Address: Address: [address] [facility] [place] [address]- Care Team Related Persons Name: ANANYA BAH Care Team Personnel Name: Pamella Steen Clerk Stella PT Position: P3 Scheduling - Trampoline Team Coach Advanced Member Role: Other Name: FOREIGN ELLINGTON DO Position: P4 Physician - Primary Care Member Role: Primary Care Physician Address: Address: [address] [place] [address]- Name: MAXIMILIANO DIMAS MD Position: Physician Member Role: Delivery Architect Address: Address: [address] [place] [address] [place] [address]- Name: MD ANSHU DAMON Member Role: Prosthodontist Address: Address: [address] [place] [address]- Name: BHAVNA BELTRAN MD Position: P4 Physician - General Surgery Member Role: Pain Management Address: Address: [address] [facility] [place] [address]- Care Team Related Persons Name: ANANYA BAH Care Team Personnel Name: Pamella Steen Clerscottie Douglas PT Position: P3 Scheduling - Trampoline Team Coach Advanced Member Role: Other Name: FOREIGN ELLINGTON DO Position: P4 Physician - Primary Care Member Role: Primary Care Physician Address: Address: [address] [place] [address] Name: MAXIMILIANO DIMAS MD Position: Physician Member Role: Delivery Architect Address: Address: [address] [place] [address] [place] [address]- Name: MD ANSHU DAMON Member Role: Prosthodontist Address: Address: [address] [place], [place] [address]- [place] Name: BHAVNA BELTRAN MD Position: P4 Physician - General Surgery Member Role: Pain Management Address: Address: [address] [facility] [place] [address]- Care Team Related Persons Name: ANANYA BAH Goals (unrecognized section and content) Goals may be documented in a n alternate section FOR RECORDS PERTAINING TO PATIENTS WHO ARE [...] BE BASED ON THE PRIMARY CLINICAL RECORDS. [facility]. provides no warranty or guarantee of the accuracy or completeness of information in this document.
[2025-03-26] MEDS: Lactated Ringers 1,000 ML 15 ML IV (06:20)
--- NOTE | 2025-03-26 06:29 | PRE.ANES_ITS ---
ASA Classification* ASA Classification ASA Classification: 3 Assessment & Plan Anesthesia* Anesthesia Assessment Anesthesia Assessment: Discussed sedation and/or anesthesia options, risks, benefits, and alternatives with patient/parents/legal guardian/POA. Questions invited. The patient/parents/legal guardian/POA seems to understand and agrees to proceed with anesthesia plan. Reviewed the physical assessment, medical history, allergy history and patient home medications list prior to surgery/procedure/anesthetic and documented any changes. Performed airway and anesthesia risk assessments. Anesthesia Type Anesthesia Type: MAC (Patient has mild aortic stenosis. Avoid increased heart rates and decreased blood pressures. Phenylephrine is drug of choice.) and Bloc k (Patient is consented for adductor canal block.) History Source History Obtained from:: Patient and Chart Anesthesia Focused Assessment* Temperature: 97.8 F Pulse Rate: 88 Blood Pressure: 142/67 Respiratory Rate: 18 Pulse Ox: 96 Oxygen Delivery Method: Room Air Airway Assessment Mouth opens: >3 cm Mallampati Score: IV Teeth Condition: Intact Neck Range of motion (ROM): Limited ROM (Somewhat Decreased) Labs Anesthesia Preop lab: CBC WBC, (4.4-11.0) 12.5 K/mm3 H 12/23/24, 05:30 RBC, (4.2-5.4) 4.39 M/mm3 12/23/24, 05:30 Hgb, (12.0-15.0) 13.6 g/dL 12/23/24, 05:30 Hct, (37-47) 39.9 % 12/23/24, 05:30 Plt Count, (150-450) 182 K/mm3 12/23/24, 05:30 CHEMISTRY Potassium, (3.3-5.1) 4.2 mmol/L 12/23/24, 05:30 Sodium, (133-145) 136 mmol/L 12/23/24, 05:30 Magnesium, (1.5-2.2) 2.1 mg/dL 11/25/24, 10:02 BUN, (4-19) 12 mg/dL 12/23/24, 05:30 Creatinine, (0.70-1.20) 0.72 mg/dL 12/23/24, 05:30 Glucose, (70-99) 255 mg/dL H 12/23/24, 05:30 POC Glucose, (74-106) 169 mg/dL H Today, 06:00 TSH, (0.300-4.200) 2.380 uIU/mL 11/25/24, 10:02 COAG PT, (11.7-14.9) 24.9 SECONDS H 12/29/21, 07:00 Pre-Assessment Diagnosis/Proposed Procedure Planned Operative Procedure(s): RIGHT TOTAL KNEE ARTHROPLASTY MANIPULATION UNDER ANESTHESIA Anesthesia History 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 When Was Last Pacemaker Check QUESTION #4 FULL TEXT: You/Your Family Experience fever (hyperthermia) with Anesthesia Last Oral Intake Last Oral intake: Last Oral Intake NPO since 23:45 03/26/25 06:07 Meds taken in AM with sips of Yes 03/26/25 06:07 water? Meds patient instructed to levothyroxine, diltiazem 03/26/25 06:07 take am of surgery Any additional information?: Yes Meds taken in AM with sips of water?: Yes PONV PONV - clinical laboratory aides teacher: PONV - clinical laboratory aides teacher Female Yes 03/20/25 13:50 HX of Motion Sickness No 03/20/25 13:50 HX of N/V After Surgery No 03/20/25 13:50 Non-Smoker Yes 03/20/25 13:50 Duration of Surgery greater No 03/20/25 13:50 than 60 minutes Number of Risk Factors 2 03/20/25 13:50 PONV Score Moderate Risk 03/20/25 13:50 Height & Weight Height & Weight: Anesthesia: Height & Weight Height 5 ft 4 in 03/26/25 06:07 Weight: 85 kg 03/26/25 06:07 Body Mass Index (BMI) 32.1 03/26/25 06:07 Respiratory Assessment Respiratory Assessment - clinical laboratory aides teacher: Respiratory Tract Infection Hx - clinical laboratory aides teacher Hx Respiratory Tract Infection No 03/20/25 13:50 STOP Sleep Apnea STOP Sleep Apnea - clinical laboratory aides teacher: STOP Sleep Apnea - clinical laboratory aides teacher Hx Hypertension Yes: CONTROLLED WITH MED 03/20/25 13:50 Hx Sleep Apnea Yes 03/20/25 13:50 CPAP Yes 03/20/25 13:50 BIPAP No 03/20/25 13:50 Do you snore loudly (louder than talking or can be heard Do you often feel tired/ fatigued/ sleepy during daytime? Has anyone observed you stop breathing during sleep? STOP Results Positive 03/20/25 13:50 QUESTION #5 FULL TEXT : Do you snore loudly (louder than talking or can be heard through closed doors)? 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 Specify any problems Hx of Preganancy in last 3 No 03/20/25 13:50 Months Nurse Filling Out Transfusion DSCHRIBER 03/20/25 13:50 & Questions: Date: 03/20/25 03/20/25 13:50 Time: 13:51 03/20/25 13:50 Patient unable to answer at this time (ie. confused, unrespo /Reproduction History /Reproductive History - clinical laboratory aides teacher: /Reproductive Hx- clinical laboratory aides teacher Hx Now No 03/20/25 13:50 Gestational Age (in weeks): EDC: Hx Hx Para Hx Section SAB No 03/20/25 13:50 Does the father of the baby or his family experience fever w Father of the baby Malignant Hypertension history comment Active Medications Active Medications: Current Medications Generic Name Dose Route Start Last Admin Trade Name Freq PRN Reason Stop Dose Admin Lactated Ringer's 1,000 mls @ 15 mls/hr 03/26/25 06:00 03/26/25 06:20 IV 15 mls/hr .Q48H LICHA Administration PFSH Medical History History of echocardiogram Post-menopausal Diabetes Left ureteral stone PONV (postoperative nausea and vomiting) Wears hearing aid Wears glasses Thyroid disease Arthritis High cholesterol History of IBS CPAP (continuous positive airway pressure) dependence Hypertension Cardiology follow-up encounter History of atrial fibrillation Home Medications Medication Instructions Recorded Last Taken Type calcium citrate 500 mg (2,376 mg) 500 mg PO DAILY 12/1203/25/25 History effervescent tablet cholecalciferol (vitamin D3) 50 50 mcg PO DAILY 03/25/25 History mcg (2,000 unit) tablet escitalopram oxalate 10 mg tablet 20 mg PO DAILY 12/2103/25/25 History furosemide 20 mg tablet 20 mg PO DAILY 12/21/2103/14 History rosuvastatin 10 mg tablet 10 mg PO DAILY 12/21/2103/14 History warfarin 2 mg tablet 6 mg PO DAILY 12/21/2103/19 History cyanocobalamin (vitamin B-12) 2,000 mcg PO DAILY 11/2403/25/25 History 1,000 mcg tablet,extended release (Vitamin B-12 ER) diltiazem HCl 300 mg 300 mg PO DAILY 11/24/24 History tablet,extended release 24 hr (Matzim [place]) docusate sodium 100 mg capsule 100 mg PO DAILY PRN con stipation 11/24/24 03/25/25 History levothyroxine 75 mcg tablet 75 mcg PO DAILY 11/24/24 1 05/26/24 History semaglutide 7 mg tablet (Rybelsus) 7 mg PO DAILY 11/2403/20/25 History Allergy/AdvReac Type Severity Reaction Status Date / Time cortisone Allergy Severe Other Verified 03/26/25 07:04 Nitrate Analogues Allergy Severe Other Verified 03/26/25 07:04 erythromycin base Allergy Upset Verified 03/26/25 07:04 Stomach Penicillins (PCN) Allergy Swelling Verified 03/26/25 07:04 Sulfa (Sulfonamide AdvReac Intermediate Diarrhea Verified 03/26/25 07:04 Antibiotics) Surgical History Hx of total knee arthroplasty History of cardiac catheterization History of partial hysterectomy Hx of total hip arthroplasty Hx of cystoscopy History of heart surgery History of hip replacement History of back surgery Hx of parathyroidectomy Social History Smoking Status: Never smoker Review of Systems (Anesthesia) ROS Narrative System reviewed and no additional complaints, except as documented.
[2025-03-26] MEDS: Midazolam 2 MG/2 ML Syringe IV (07:14)
[2025-03-26] MEDS: Lidocaine 1% (5 ml sdv) 5 ML Vial 4 ML IV (07:25)
[2025-03-26] MEDS: Lactated Ringers 500 ML IV (07:25)
[2025-03-26] MEDS: fentaNYL 100 MCG/2 ML Ampul IV (07:36)
--- NOTE | 2025-03-26 07:36 | PCM.OPRPT ---
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 Surgery/Procedure Performed: Right knee manipulation under anesthesia automatic grinder operator: No Type of Anesthesia: MAC RN Documented Start/Stop Times: Operation Date: 03/26/25 07:30 Case Time Into Pre-Op 03/26/25 05:47 Out of Pre-Op 03/26/25 07:25 Anesthesia Start 03/26/25 07:26 Into Room 03/26/25 07:26 Procedure Start 03/26/25 07:31 Procedure Start Time: 07:31 Procedure Stop Time: 07:35 Select all DRAINS/GRAFTS/IMPLANTS that apply: None Estimated Blood Loss: None Specimen collected: No Description of surgery: Patient was identified in the preoperative holding area by name, medical record number, date of . The operative extremity was marked. All questions were answered to the patient's satisfaction. Adductor canal block was then administered by anesthesia staff. At time of her procedure, patient was brought to the operative suite positioned supine on her gurney. MAC anesthesia was administered and achieved. Timeout was called confirming the side, site, and operation to be performed. No concerns were voiced elected proceed. No antibiotics were administered. I confirmed anesthesia. Range of motion was then assessed to be measured approximately 0 to 90 degrees with firm endpoint in flexion. With gradual force applied the proximal tibia and flexion at the hip the knee was brought to the point of resistance in flexion and multiple adhesions were audibly released. I was able to gradually flex the knee to 130 degrees. Knee was stable to varus valgus stressing with no palpable defects following manipulation. She was awakened from anesthesia safely and transferred to PACU in stable condition. Postoperative plan: Restart home Coumadin today. Follow-up in 2 weeks for range of motion assessment. Defer corticosteroids due to allergy. Aggressive physical therapy starting tomorrow. Emphasize importance of range of motion exercises at home. Use of walker until cleared by therapy. Ice to the knee. Compression. Tylenol and tramadol for pain relief. Surgical Findings: Pre-manipulation flexion 90 degrees, postmanipulation range of motion 130 degrees. Complications Complications: No Admit VTE Documentation VTE Present on Admission: No VTE Mechan Device Prophylaxis: None VTE Pharm Prophylaxis ordered?: No Reason prophylaxis not ordered: Treatment Not Indicated
--- NOTE | 2025-03-26 07:46 | PCM.POST.ANE ---
Anesthesia: Postop Eval I Current Vital Signs Temperature: 98 F Pulse Rate: 93 Blood Pressure: 137/63 Respiratory Rate: 16 Pulse Ox: 92 Assessment Airway patent: Yes Spontaneous unlabored respirations: Yes nausea: No Vomiting: No Anesthesia Complication: No Fluid Hydration Crystalloid volume administer (ml): 500 Total IV fluid infused: 500 Progress Note Anesthesia document: Postop Eval 1 completed: Yes
--- NOTE | 2025-03-26 14:21 | POSTOPAN2_ITS ---
Anesthesia Postop Eval I Sum Postop Eval Completion status Anesthesia document: Postop Eval 1 completed: Yes Anesthesia Postop Eval I Summary Anesthesia Postop Eval I Summary: Anesthesia Postop Eval I: Assessment Summary Airway patent Yes 03/26/25 07:46 MANAGER [email or web address].[email or web address] Spontaneous unlabored Yes 03/26/25 07:46 MANAGER [email or web address].TNES respirations Mental status nausea No 03/26/25 07:46 MANAGER [email or web address].TNES Vomiting No 03/26/25 07:46 MANAGER [email or web address].TNES Anesthesia Postop Eval I: Fluid Summary Crystalloid volume administer 500 03/26/25 07:46 MANAGER [email or web address].TNES (ml) Colloids volume administered ( ml) Blood Product volume administered (ml) Total IV fluid infused 500 03/26/25 07:46 MANAGER [email or web address] Anesthesia Postop Eval I: Summary Notes Anesthesia Complication No 03/26/25 07:46 MANAGER [email or web address].TNES Anesthesia Complication Comment: Post-operative progress note Anesthesia: Postop Eval II Evaluation Mental status: Awake and Calm Pain Level: 0 nausea: No Vomiting: No Complications Anesthesia Complication: No
--- NOTE | 2025-03-26 14:21 | PCM.POSTANE2 ---
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 Spontaneous unlabored Yes 03/26/25 07:46 FIELD ARTILLERY FIRE CONTROL MAN.TNES respirations Mental status nausea No 03/26/25 07:46 FIELD ARTILLERY FIRE CONTROL MAN.TNES Vomiting No 03/26/25 07:46 FIELD ARTILLERY FIRE CONTROL MAN.TNES Anesthesia Postop Eval I: Fluid Summary Crystalloid volume administer 500 03/26/25 07:46 FIELD ARTILLERY FIRE CONTROL MAN.TNES (ml) Colloids volume administered ( ml) Blood Product volume administered (ml) Total IV fluid infused 500 03/26/25 07:46 FIELD ARTILLERY FIRE CONTROL MAN.TNES Anesthesia Postop Eval I: Summary Notes Anesthesia Complication No 03/26/25 07:46 FIELD ARTILLERY FIRE CONTROL MAN.TNES Anesthesia Complication Comment: Post-operative progress note Anesthesia: Postop Eval II Evaluation Mental status: Awake and Calm Pain Level: 0 nausea: No Vomiting: No Complications Anesthesia Complication: No
[2025-03-27 09:11] LABS: INR Fingerstick 1.1
== END 2025-03-26 09:23 | disposition home or self-care (01) ==
LOC: SDC 05:37 → AC 05:38
PROVIDERS: PCP Student in an Organized Health Care Education/Training Program; Referring Provider Student in an Organized Health Care Education/Training Program; Visit Provider Student in an Organized Health Care Education/Training Program
DX: Z96.651 Presence of right artificial knee joint (principal); J44.9 Chronic obstructive pulmonary disease, unspecified; I48.91 Unspecified atrial fibrillation; E11.9 Type 2 diabetes mellitus without complications; F32.A Depression, unspecified; I10 Essential (primary) hypertension; G47.30 Sleep apnea, unspecified; M17.11 Unilateral primary osteoarthritis, right knee; M11.261 Other chondrocalcinosis, right knee; E66.9 Obesity, unspecified; Z79.899 Other long term (current) drug therapy; Z79.01 Long term (current) use of anticoagulants; Z68.31 Body mass index [BMI] 31.0-31.9, adult
CPT/HCPCS: 27599; 64450; 01380; 36416; 82962; 85610